=== PATIENT | male | born 1940 | race Caucasian/White ===

== ENCOUNTER 2022-03-02 16:09 | Outpatient (CLI) | payer MEDICARE, SELFPAY ==
[2022-03-02 16:48] LABS: D-Dimer Quantitative (DVT/PE) 3.95 FEU/ug/m (0.27-0.49)
== END 2022-03-02 23:59 | disposition home or self-care (01) ==
PROVIDERS: PCP Family Medicine; Visit Provider Family Medicine
DX: R07.9 Chest pain, unspecified (principal)
CPT/HCPCS: 85379

== ENCOUNTER 2024-08-27 17:00 | Emergency (ER) | payer MEDICARE, SELFPAY ==
[2024-08-27 17:00] VITALS: BP 179/73; PULSE 66; RESP 18; TEMP 36.4; O2SAT 97; BMI 27.4
--- NOTE | 2024-08-27 17:39 | EX.ED.DYSGE1 ---
HPI History of Present Illness Chief Complaint: Dizziness Informant: patient Onset/Context/Timing Onset: Weeks (1) Context: Gradual Onset Timing: Intermittent Quality: Lightheaded Location: Generalized Worsened by: Standing and moving Relieved by: Rest Narrative Narrative: Patient presents with lightheadedness and dizziness for the past week. Patient states that whenever he gets up and moves he becomes lightheaded. Patient states that sometimes he gets unsteady on his feet. Patient states his symptoms became worse yesterday. Patient noted some spots in his vision that have resolved. Patient admits to some urinary frequency but denies any dysuria or hematuria. Patient denies any fevers or chills. Patient denies any headaches. Patient states she has chronic tinnitus but denies any changes in his tinnitus. Patient denies any changes in his hearing. [facility] Medical History (Updated 08/27/24 @ 22:[address] Juan Luis Hughes DO) HTN (hypertension) Allergy/AdvReac Type Severity Reaction Status Date / Time No Known Allergies Allergy Verified 08/27/24 17:01 Surgical History (Updated 08/27/24 @ 18:[address] Juan Luis Hughes DO) Hx of atrial septal defect repair Hx of total knee replacement Social History Smoking Status: Never smoker ROS ROS ED Constitutional Constitutional ED: Denies chills or fever(s) Eyes Eyes: Reports change in vision; Denies blurry vision or diplopia ENT ENT ED: Denies rhinorrhea or sore throat Cardiovascular Cardiovascular: Denies chest pain or palpitations Respiratory/Chest Respiratory/Chest: Denies cough or dyspnea Gastrointestinal Gastrointestinal: Denies nausea or vomiting Genitourinary Genitourinary ED: Reports urinary frequency; Denies dysuria or hematuria Musculoskeletal Musculoskeletal: Denies back pain or neck pain Integumentary Denies abscess or rash Neurologic Neurologic: Denies headache(s) or weakness Allergic/Immunologic Allergic/Immunologic ED: Denies mouth swelling or urticaria EXAM Physical Exam Const Vital Signs: 08/27/24 17:00 08/27/24 18:35 08/27/24 19:00 Temperature 97.6 F L Temperature Source Oral Pulse Rate 66 59 L Pulse Rate [Lying] 58 L Pulse Rate [Sitting (for 1 minute prior to obtaining)] 64 Pulse Rate [Standing (for 1 minute prior to obtaining)] 63 Respiratory Rate 18 18 Blood Pressure 179/73 H 152/103 H Blood Pressure [Lying] 144/72 H Blood Pressure [Sitting (for 1 minute prior to obtaining)] 153/75 H Blood Pressure [Standing (for 1 minute prior to obtaining)] 146/84 H Blood Pressure Mean 108 119 Blood Pressure Mean [Lying] 96 Blood Pressure Mean [Sitting (for 1 minute prior to obtaining)] 101 Blood Pressure Mean [Standing (for 1 minute prior to obtaining)] 104 Pulse Ox 97 94 Oxygen Delivery Method Room Air Room Air 08/27/24 21:00 Temperature Temperature Source Pulse Rate 53 L Pulse Rate [Lying] Pulse Rate [Sitting (for 1 minute prior to obtaining)] Pulse Rate [Standing (for 1 minute prior to obtaining)] Respiratory Rate 18 Blood Pressure 158/82 H Blood Pressure [Lying] Blood Pressure [Sitting (for 1 minute prior to obtaining)] Blood Pressure [Standing (for 1 minute prior to obtaining)] Blood Pressure Mean 107 Blood Pressure Mean [Lying] Blood Pressure Mean [Sitting (for 1 minute prior to obtaining)] Blood Pressure Mean [Standing (for 1 minute prior to obtaining)] Pulse Ox 93 Oxygen Delivery Method Room Air Positive well nourished and well developed General Appearance ED: well developed and NAD HEENT Reports moist mucous membranes Neck supple and no JVD Resp normal respiratory effort and clear to auscultation bilaterally Cardio regular rate and regular rhythm GI non-tender and non-distended Palpation: soft Extremity normal to inspection General Extremety ED: Negative for edema or tenderness General Extremity: Negative for edema Neuro oriented x3, CN's II-XII intact bilaterally and no sensory deficits noted Sensorium / Orientation: alert Motor Exam: strength 5/5 throughout Psych mental status grossly normal MDM MDM MDM Narrative Medical decision making narrative: Differential diagnosis includes electrolyte abnormality, dehydration, vertigo, labyrinthitis, orthostatic hypotension, cardiac dysrhythmia, and cardiac ischemia. EKG will be obtained to assess for cardiac dysrhythmia and cardiac ischemia. CBC will be obtained to assess for leukocytosis and anemia. Basic metabolic profile will be obtained to assess for electrolyte abnormality and renal function. High-sensitivity troponin will be obtained to assess for cardiac ischemia. Orthostatic vital signs will be obtained to assess for orthostatic hypotension. Lab Data Attestation: I reviewed the patient's lab results. Lab results narrative: CBC was reviewed and was within normal limits. Basic metabolic profile was reviewed and was within normal limits. High-sensitivity troponin was reviewed and was normal at 11. Urinalysis was reviewed. Urobilinogen was 8. Leukocyte esterase was negative. There were 5-10 white blood cells and 1+ bacteria. Labs: Laboratory Results - last 24 hr 08/27/24 08/27/24 18:58 20:00 WBC 5.4 RBC 4.89 Hgb 15.6 Hct 46.1 MCV 94.3 H MCH 31.9 MCHC 33.8 RDW Std Deviation 45.9 H RDW Coeff of [place] 13.2 Plt Count 186 MPV 9.6 Immature Gran % (Auto) 0.600 Neut % (Auto) 55.9 Lymph % (Auto) 26.8 Angelina % (Auto) 12.8 H Eos % (Auto) 3.0 Baso % (Auto) 0.9 Absolute Neuts (auto) 3.0 Absolute Lymphs (auto) 1.45 Nucleated RBC % 0 Sodium 144 Potassium 3.9 Chloride 109 H Carbon Dioxide 29.0 Anion Gap 6 BUN 21 H Creatinine 1.20 Estim Creat Clear Calc 52.09 Est GFR (MDRD) Af Amer 75 Est GFR (MDRD) Non-Af 62 BUN/Creatinine Ratio 17.5 Glucose 109 H Calcium 8.7 Troponin I High Sens 11 Urine Color Yellow Urine Clarity Sl. Cloudy Urine pH 6.0 Ur Specific [place] 1.020 Urine Protein 15 H Urine Glucose (UA) Normal Urine Ketones Negative Urine Occult Blood Negative Urine Nitrite Negative Urine Bilirubin Negative Urine Urobilinogen 8 H Ur Leukocyte Esterase Negative Urine RBC 0 SEEN Urine WBC 5-10 SEEN Ur Squamous Epith Cells 0 SEEN Urine Bacteria 1+ Urine Mucus 0 SEEN EKG Initial EKG: Attestation: I personally reviewed and interpreted this EKG as follows: Interpretation: Sinus Rhythm (60) Comments: EKG was obtained. On my independent interpretation, it showed a normal sinus rhythm with a rate of 60. [place] interval, QRS interval, and QTc intervals were all normal. There is left axis deviation at -37. There is left ventricular hypertrophy. There are no acute ST or T wave changes. Prior EKG tracings: not available for review Prior: No Prior Treatment and Re-Evaluation :: Orthostatic vital signs were obtained and were negative. Patient was advised of his findings. Patient is feeling better on reevaluation. Patient wants to go home. Patient was instructed to follow-up with his primary care physician in 5 to 7 days. Patient understood and was agreeable with the plan. All questions were answered. Discharge Plan Triage Chief Complaint: Dizziness ED Provider: Juan Luis Hughes Dx/Rx/DC Orders Clinical Impression: Dizziness, Lightheadedness Instructions: ED Dizziness, Uncertain Cause Primary Care Provider: Diego May Referrals: Diego May MD [Primary Care Provider] - 5-7 Days Print Language: Gambian Disposition Disposition: Home, Self Care
[2024-08-27 18:35] VITALS: BP 144/72; BP 146/84; BP 153/75; PULSE 58; PULSE 63; PULSE 64
--- NOTE | 2024-08-27 18:35 | EKG12_ITS ---
Test Reason : DYSRHYTHMIA Blood Pressure : / mmHG Vent. Rate : 060 BPM Atrial Rate : 060 BPM P-R Int : 096 ms QRS Dur : 098 ms QT Int : 424 ms P-R-T Axes : -64 -37 029 degrees QTc Int : 424 ms Unusual P axis and short PA, probable junctional rhythm Left axis deviation Minimal voltage criteria for LVH, may be normal variant ( R in aVL ) Abnormal ECG Confirmed by CARIE GUAN, VIRI ([id number]), editor department JIMENA RUSSELL ([id number]) on 08/28/2024 8:50:52 AM Referred By: Confirmed By:VIRI DARNELL MD
[2024-08-27 19:00] VITALS: BP 152/103; PULSE 59; RESP 18; O2SAT 94
[2024-08-27 19:16] LABS: Absolute Lymphocyte Count 1.45 X10^3/uL (0.83-4.51); Basophil# 0.05 X10^3/uL; Basophil% 0.9 % (0-1); Eosinophil# 0.16 X10^3/uL; Hematocrit 46.1 % (40-54); Hemoglobin 15.6 g/dL (13.0-16.5); Lymphocyte # 1.45 X10^3/ul (0.83-4.51); Lymphocyte % 26.8 % (19-41); Mean Corp Hgb Conc 33.8 g/dL (32-36); Mean Corpuscular Hgb 31.9 pg (27.0-32.0); Mean Corpuscular Volume 94.3 fL (80-94); Mean Platelet Vol. 9.6 fl (6.2-12.0); Monocyte# 0.69 X10^3/uL; Monocyte% 12.8 % (0-10); NRBC Flagged by Analyzer 0 % (0-5); Neutrophil # 3.03 X10^3/uL (2.7-7.7); Neutrophil % 55.9 % (47-70); Platelet Count 186 K/mm3 (150-450); RBC Distribution Width CV 13.2 % (11.6-14.6); RBC Distribution Width SD 45.9 fl (35.1-43.9); Red Blood Count 4.89 M/mm3 (4.6-6.2); White Blood Count 5.4 K/mm3 (4.4-11.0)
[2024-08-27 19:38] LABS: Anion Gap 6 (5-15); BUN 21 mg/dL (7-18); BUN/Creat Ratio 17.5 RATIO (10-20); Calcium,Total 8.7 mg/dL (8.5-10.1); Chloride 109 mmol/L (98-107); EST Glomerular Filtration Rate 62 mL/min (>60); Est Glom Filt Rate - Afr Amer 75 mL/min (>60); Estimated Creatinine Clearance 52.09 ml/min; Glucose 109 mg/dL (74-106); Potassium 3.9 mmol/L (3.5-5.1); Sodium Level 144 mmol/L (136-145); Troponin-I HS 11 pg/mL (3.0-78.0)
[2024-08-27 20:07] LABS: Mucous, Urine 0 SEEN /hpf (<or=2+); Red Blood Cells-Urine 0 SEEN /hpf (0-5); Squamous Epithelial Cells - UA 0 SEEN /hpf (0-5)
[2024-08-27 20:13] LABS: Color, Urine Yellow (Yellow); Glucose, Dipstick Normal (Normal); Ketone-Dipstick Negative (Negative); Leukocyte Esterase-Dipstick Negative /ul (Negative); Nitrite-Dipstick Negative (Negative); Occult Blood-Urine Negative /ul (Negative); Protein-Dipstick 15 mg/dl (Negative); Urine Bilirubin Dipstick Negative (Negative); Urine Clarity Sl. Cloudy (Clear); Urine Urobilinogen 8 mg/dl (Normal)
[2024-08-27 20:22] LABS: Bacteria 1+ /hpf (None Seen); White Blood Cells 5-10 SEEN /hpf (0-5)
[2024-08-27 21:00] VITALS: BP 158/82; PULSE 53; RESP 18; O2SAT 93
[2024-08-27 22:19] VITALS: BP 172/82; PULSE 68; RESP 18; TEMP 36.4; O2SAT 99
== END 2024-08-27 22:20 | disposition home or self-care (01) ==
PROVIDERS: Emergency Provider Emergency Medicine; PCP Family Medicine; Visit Provider Emergency Medicine
DX: R42 Dizziness and giddiness (principal); I10 Essential (primary) hypertension; Z96.659 Presence of unspecified artificial knee joint
CPT/HCPCS: 80048; 81001; 84484; 85025; 93005; 99285

== ENCOUNTER 2025-06-02 13:55 | Inpatient (IN) | payer MEDICARE, SELFPAY ==
[2025-06-02 13:56] VITALS: BP 142/80; PULSE 65; RESP 16; TEMP 35.6; O2SAT 98; BMI 27.3
--- NOTE | 2025-06-02 13:58 | EKG12_ITS ---
Test Reason : WEAKNESS Blood Pressure : */* mmHG Vent. Rate : 54 BPM Atrial Rate : 54 BPM P-R Int : 112 ms QRS Dur : 96 ms QT Int : 426 ms P-R-T Axes : * -32 33 degrees QTcB Int : 403 ms Sinus bradycardia Left axis deviation Abnormal ECG Confirmed by CARIE GUAN, VIRI ([id number]), visual effects editor FIDELIA GOMEZ ([id number]) on 06/03/2025 11:01:37 AM Referred By: Confirmed By: VIRI DARNELL MD
[2025-06-02 14:17] LABS: Hematocrit 49.4 % (40-54); Hemoglobin 17.3 g/dL (13.0-16.5); Immature Granulocytes Count 0.020 X10^3/uL (0.0-0.0); Mean Corp Hgb Conc 35.0 g/dL (32-36); Mean Corpuscular Volume 92.7 fL (80-94); Mean Platelet Vol. 9.4 fl (6.2-12.0); NRBC Flagged by Analyzer 0 % (0-5); Platelet Count 185 K/mm3 (150-450); RBC Distribution Width CV 13.2 % (11.6-14.6); RBC Distribution Width SD 45.0 fl (35.1-43.9); Red Blood Count 5.33 M/mm3 (4.6-6.2); White Blood Count 5.9 K/mm3 (4.4-11.0)
[2025-06-02 14:29] VITALS: BMI 27.3
--- NOTE | 2025-06-02 14:45 | CT_ITS ---
EXAM: STROKE BRAIN/HEAD WITHOUT CONT CLINICAL HISTORY: 84 y/o M with NEURO DEFICIT, ACUTE, STROKE SUSPECTED. COMPARISON: None. TECHNIQUE: Routine CT imaging of the head without IV contrast. Additional multiplanar reformats were obtained. Dose reduction techniques were used including intermediate exposure control (AEC),iterative reconstruction technique, and/or mA and/or KV dose adjustments based on patient's size. FINDINGS: The ventricles, sulci and cisterns are normal for patient age. There is no evidence of acute intracranial hemorrhage or herniation. There is no midline shift, mass effect, or extra-axial collection. Moderate scattered supratentorial white matter hypodensities, compatible with patient age. The sawyer and white matter interfaces are otherwise maintained. Prior ocular lens replacements. The visualized paranasal sinuses and mastoids are unremarkable. No acute calvarial fracture or scalp hematoma. CT/STROKE Brain/Head without Cont IMPRESSION: No acute intracranial finding. Dr. Mckeon discussed findings with Dr. Moulton via telephone at 3:08 pm on . Reading Location: [id number]
--- OUTSIDE RECORDS SUMMARY | 2025-06-02 14:49 | XMS RPT_ITS | CCD ---
Author Organization [facility] CliniSyhi Care Team Providers Care Telesales Specialist Name Role Phone Diego Huffman MD Primary Care Provider Luis Cordero DO Unavailable Diego Huffman Primary Care Unavailable Juan Luis Hughes Attending Unavailable Diego Huffman MD Primary Care Provider Luis Cordero DO Unavailable Haagen TECHNICAL ENGINEER.CHILD CARE GROUP LEADER, Ana Unavailable Suppan TECHNICAL ENGINEER.CHILD CARE GROUP LEADER, Vicki A Unavailable Suppan TECHNICAL ENGINEER.CHILD CARE GROUP LEADER, Vicki A Unavailable [phone] Suppan TECHNICAL ENGINEER.CHILD CARE GROUP LEADER, Vicki A Unavailable [phone] BHANU RICHARDS Referring Unavailable DIEGO HUFFMAN Primary Care Unavailable ARMIDA, DIEGO Watson Referring Unavailable DIEGO HUFFMAN Primary Care Unavailable ROSA ELENA COHEN Attending Unavailable DIEGO HUFFMAN Referring Unavailable ANI LIU Attending Unavailable DIEGO HUFFMAN Primary Care Unavailable DIEGO HUFFMAN Primary Care Unavailable LYNETTE PATEL Attending Unavailable DIEGO HUFFMAN Primary Care Unavailable CORNELIUS DASILVA Attending Unavailable LYNETTE PATEL Referring Unavailable ARMIDADIEGO Primary Care Unavailable CORNELIUS DASILVA Attending Unavailable DIEGO HUFFMAN Primary Care Unavailable DIEGO HUFFMAN Referring Unavailable DIEGO HUFFMAN Primary Care Unavailable ROSA ELENA RAMON Attending Unavailable DIEGO HUFFMAN Primary Care Unavailable ROSA ELENA RAMON Referring Unavailable ARMIDA, DIEGO Watson Primary Care Unavailable DIEGO HUFFMAN Attending Unavailable DIEGO HUFFMAN Primary Care Unavailable DIEGO HUFFMAN Referring Unavailable ARMIDA, DIEGO Watson Referring Unavailable ARMIDA, DIEGO Watson Primary Care Unavailable DIEGO HUFFMAN Primary Care Unavailable ROSA ELENA COHEN Referring Unavailable ARMIDA, DIEGO Watson Primary Care Unavailable FIDENCIO RENEE Attending Unavailable ARMIDA, DIEGO Watson Primary Care Unavailable ARMIDA, DIEGO Watson Referring Unavailable ARMIDA, DIEGO Watson Primary Care Unavailable ARMIDA, DIEGO Watson Referring Unavailable ARMIDA, DIEGO Watson Primary Care Unavailable ARMIDA, DIEGO Watson Primary Care Unavailable ARMIDA, DIEGO Watson Attending Unavailable ARMIDA, DIEGO Watson Referring Unavailable ARMIDA, DIEGO Watson Primary Care Unavailable ANA RESENDEZ Attending Unavailable ARMIDA, DIEGO Watson Primary Care Unavailable ARMIDA, DIEGO Watson Primary Care Unavailable ARMIDA, DIEGO Watson Attending Unavailable SELF Referring Unavailable ARMIDA, DIEGO Watson Primary Care Unavailable STACIE HOOD Attending Unavailable ARMIDA, DIEGO Watson Primary Care Unavailable SELF Referring Unavailable ROSA ELENA COHEN Attending Unavailable ARMIDA, DIEGO Watson Primary Care Unavailable ARMIDA, DIEGO Watson Referring Unavailable ARMIDA, DIEGO Watson Primary Care Unavailable ARMIDA, DIEGO Watson Attending Unavailable ARMIDA, DIEGO Watson Primary Care Unavailable ANA RESENDEZ Referring Unavailable ARMIDA, DIEGO Watson Primary Care Unavailable CORNELIUS DASILVA Attending Unavailable ARMIDA, DIEGO Watson Primary Care Unavailable NARCISO JAQUEZ Attending UnavailSEBASTIAN Steen Referring Unavailable ARMIDA, DIEGO Watson Primary Care Unavailable ARMIDA, DIEGO Watson Primary Care Unavailable ROSA ELENA COHEN Referring Unavailable ARMIDA, DIEGO Watson Primary Care Unavailable Allergies Allergy Classification Reported Allergen(s) Allergy Type Date of Onset Reaction(s) Facility (20 sources) Lisinopril; Translations: [LISINOPRIL] Drug Allergy 04-09-2013 Cough [facility] Medications Current Medications Medication Drug Class(es) Dates Sig (Normalized) Sig (Original) amLODIPine 2.5 mg oral tablet (20 sources) Dihydropyridine Calcium Channel Dariel Start: 09-01-2021 End: 07-11-2025 take 1 tablet by mouth once daily amLODIPine (NORVASC) 2.5 mg tablet Indications: Essential hypertension, benign Take 1 tablet by mouth once daily. 90 tablet 3 07/11/2024 07/11/2025 Active Comment on above: Take 1 tablet by tonio once daily. ascorbic acid 500 mg oral tablet (20 sources) Vitamin C Start: 01-23-2014 take 2 tablets by mouth once daily ascorbic acid (VITAMIN C) 500 mg tablet Take 2 tablets by mouth once daily. 0 01/23/2014 Active Comment on above: Take 2 tablets by mo [facility] once daily. aspirin 81 mg delayed release oral tablet (20 sources) Platelet Aggregation Inhibitor, Nonsteroidal Anti-inflammatory Drug take 1 tablet by mouth once daily aspirin, enteric coated (ASPIRIN, ENTERIC COATED) 81 mg EC tablet Take 81 mg by mouth once daily. Active Comment on above: Take 81 mg by mouth once daily. benoxinate hydrochloride 4 mg/ml / fluorescein sodium 2.5 mg/ml ophthalmic solution (1 source) Diagnostic Dye Start: 09-09-2022 End: 09-09-2022 fluorescein-benoxin ate 0.25-0.4 % 1 Drop (FLURESS) benzonatate 100 mg oral capsule (2 sources) Non-narcotic Antitussive Start: 01-22-2025 End: 01-29-2025 take 1 capsule by mouth three times daily as needed for cough benzonatate (TESSALON PERLE) 100 mg capsule Indications: Influenza A Take 1 capsule by mouth three times a day as needed for cough for up to 7 days. 21 capsule 01/22/2025 01/29/2025 Active 12 hr guaiFENesin 600 mg extended release oral tablet (4 sources) Start: 04-16-2022 End: 04-26-2022 take 2 tablets by mouth twice daily guaiFENesin (MUCINEX) 600 mg 12 hr tablet Indications: Cough Take 2 tablets by mouth twice daily for 10 days. 40 tablet 0 04/16/2022 04/26/2022 Active Comment on above: Take 2 tablets by [facility] twice daily for 10 days. iv contrast (will be provided with radiology test) (1 source) Start: 12-10-2024 End: 12-11-2024 inject 1 dose intravenously once iv contrast (will be provided with radiology test) MRI Brain Inject, intravenously, once for 1 dose.No IV access, insert saline lock prior to beginning of sedation, infusion, injection of imaging exam.Discontinue saline lock post exam. If Pt. has a central line or IVAD, may access for administration according to line specific nursing protocol.Once exam is complete flush line and de-access according to line specific nursing protocol in the MR contrast administration guidelines link 1 Each 12/10/2024 12/11/2024 Active 24 hr mirabegron 50 mg extended release oral tablet (17 sources) beta3-Adrenergic Agonist Start: 03-20-2025 End: 07-18-2025 take 1 tablet by mouth once daily mirabegron (MYRBETRIQ) 50 mg Tb24 Take 1 tablet by mouth once daily. 30 tablet 3 03/20/2025 07/18/2025 Active Start: 08-02-2023 End: 03-12-2024 take 1 tablet by mouth once daily mirabegron (MYRBETRIQ) 50 mg Tb24 Indications: Urgency of urination Take 1 tablet by mouth once daily. 90 tablet 3 08/02/2023 03/12/2024 Discontinued Comment on above: Take 1 tablet by [facility] once daily. MULTI-VITAMIN ORAL (20 sources) MULTI-VITAMIN OR AL Take by mouth once daily. Active MULTI-VITAMIN OR AL Take by mouth. Active MULTI-VITAMIN OR AL Take by mouth. 0 Active Comment on above: Take by mouth. nutritional supplement/fiber (JUICE PLUS FIBRE ORAL) (20 sources) nutritional supp lement/fiber (JUICE PLUS FIBRE ORAL) Take by mouth. Takes eight daily Active nutritional supp lement/fiber (JUICE PLUS FIBRE ORAL) Take by mouth. Active nutritional supp lement/fiber (JUICE PLUS FIBRE ORAL) Take by mouth. 0 Active Comment on above: Take by mouth. omeprazole 20 mg delayed release oral capsule (11 sources) Proton Pump Inhibitor Start: 04-26-2025 End: 10-23-2025 take 1 capsule by mouth once daily omeprazole (PRILOSEC) 20 mg capsule Indications: Chronic cough , Dysphagia, unspecified type Take 1 capsule by mouth once daily. 30 capsule 5 04/26/2025 10/23/2025 Active Start: 04-06-2023 End: 03-12-2024 take 1 capsule by mouth once daily omeprazole (PRILOSEC) 40 mg capsule Take 1 capsule by mouth once daily. 90 capsule 1 04/06/2023 03/12/2024 Discontinued Comment on above: Take 1 capsule by mo [facility] once daily. oseltamivir 75 mg oral capsule (1 source) Neuraminidase Inhibitor Start: End: take 1 capsule by mouth twice daily oseltamivir (TAMIFLU) 75 mg capsule Indications: Influenza A Take 1 capsule by mouth two times a day for 5 days. 10 capsule 01/22/2025 01/27/2025 Active phenylephrine hydrochloride 25 mg/ml ophthalmic solution (1 source) alpha-1 Adrenergic Agonist Start: End: PHENYLephrine 2.5 % 1 Drop (AK-DILATE, FILOMENA-SYNEPHRINE) proparacaine hydrochloride 5 mg/ml ophthalmic solution (1 source) Local Anesthetic Start: End: proparacaine 0.5 % 1 Drop (ALCAINE) solifenacin succinate 5 mg oral tablet (13 sources) Cholinergic Muscarinic Antagonist Start: End: take 1 tablet by mouth once daily solifenacin (VESICARE) 5 mg tablet Take 1 tablet by mouth once daily. 30 tablet 3 04/03/2025 08/01/2025 Active tropicamide 10 mg/ml ophthalmic solution (1 source) Anticholinergic Start: End: tropicamide 1 % 1 Drop (MYDRIACYL) Completed/Discontinued Medications Medication Drug Class(es) Dates Sig (Normalized) Sig (Original) cephalexin 500 mg oral capsule (2 sources) Cephalosporin Antibacterial Start: 03-20-2025 End: 03-20-2025 cephALEXin 500 mg cap(s) (KEFLEX) Start: 03-20-2025 End: 03-20-2025 take 1 dose by mouth once 500 mg, ORAL, ONCE, 1 dose, On Tue03/20/25 at 1000, Antimicrobial indication: Prophylaxis fluticasone propionate 0.05 mg/actuat metered dose nasal spray (16 sources) Corticosteroid Start: 03-02-2023 End: 05-31-2023 take 2 spray(s) by mouth once daily fluticasone (FLONASE) 50 mcg/actuation nasal spray Indications: PND (post-nasal drip) , Vasomotor rhinitis Use 2 Sprays in each nostril once daily. Rinse mouth after use. 1 Each 2 03/02/2023 05/31/2023 Start: 11-03-2021 End: 07-07-2022 take 2 spray(s) by mouth once daily fluticasone (FLONASE) 50 mcg/actuation nasal spray Indications: URI, acute Use 2 Sprays in each nostril once daily. Rinse mouth after use. 1 Each 2 02/25/2022 07/07/2022 Discontinued (Other) Comment on above: Use 2 Sprays in each nostril once daily. Rinse mouth after use. ipratropium bromide 0.021 mg/actuat metered dose nasal spray (12 sources) Anticholinergic Start: 04-06-2023 End: 09-14-2024 Ipratropium [place] (ATROVENT) 21 mcg (0.03 %) nasal spray Use 2 Sprays in the nose twice daily. 30 mL 4 04/06/2023 09/14/2024 Discontinued Comment on above: Use 2 Sprays in the nose twice daily. lidocaine hydrochloride 0.02 mg/mg topical gel (2 sources) Antiarrhythmic, Amide Local Anesthetic Start: 03-20-2025 End: 03-20-2025 lidocaine urojet 2 % 11 mL topical gel (GLYDO) Start: 03-20-2025 End: 03-20-2025 11 mL, URETHRAL, ONCE (UP TO 30 DAYS AMB), 1 dose, On Tue03/20/25 at 1000, FOR EXTERNAL USE ONLY APPLY TO: PENIS loratadine 10 mg oral tablet (20 sources) Start: 07-07-2022 End: 09-14-2024 take 1 tablet by mouth once daily loratadine (CLARITIN) 10 mg tablet Take 1 tablet by mouth once daily. 30 tablet 11 07/07/2022 09/14/2024 Discontinued Comment on above: Take 1 tablet by tonio th once daily. naproxen 500 mg oral tablet (11 sources) Nonsteroidal Anti-inflammatory Drug Start: 09-09-2021 End: 07-07-2022 take 1 tablet by mouth every twelve hours as needed naproxen (NAPROSYN) 500 mg tablet Take 1 tablet by mouth twice daily as needed (pain/inflammation , take with food.). 20 tablet 09/09/2021 07/07/2022 Discontinued (Other) Comment on above: Take 1 tablet by tonio th twice daily as needed (pain/inflammation, take with food.). nystatin [id number] unt/ml topical cream (9 sources) Polyene Antifungal Start: 09-07-2023 End: 09-14-2024 nystatin (MYCOSTATIN) cream Indications: Dermatitis Apply 1 application to affected area two times a day. 45 g 09/07/2023 09/14/2024 Discontinued Comment on above: Apply 1 application to affected area two times a day. perflutren lipid microspheres 1.3 mL in NaCl (PF) 0.9% 10 mL injection (DEFINITY) (20 sources) Start: 03-02-2022 End: 06-01-2023 perflutren lipid microspheres 1.3 mL in NaCl (PF) 0.9% 10 mL injection (DEFINITY) Start: 12-04-2021 End: 03-05-2023 perflutren lipid microsphere s 1.3 mL in NaCl (PF) 0.9% 10 mL injection (DEFINITY) 125 ml sodium chloride 9 mg/ml prefilled syringe (20 sources) Start: 12-04-2021 End: 06-01-2023 sodium chloride 0.9 % (flush) 10 mL (BD POSIFLUSH) tamsulosin hydrochloride 0.4 mg oral capsule (6 sources) alpha-Adrenergic Dariel Start: 10-08-2024 End: 01-06-2025 take 1 capsule by mouth once daily at bedtime tamsulosin (FLOMAX) 0.4 mg Indications: Benign prostatic hyperplasia with nocturia , Urgency of urination Take 1 capsule by mouth daily at bedtime. 90 capsule 10/08/2024 12/27/2024 Discontinued (Discontinued by Patient) 24 hr trospium chloride 60 mg extended release oral capsule (10 sources) Cholinergic Muscarinic Antagonist Start: 02-18-2025 End: 03-15-2025 take 1 capsule by mouth once daily Trospium (SANCTURA SR) 60 mg cp24 Indications: Urgency of urination , OAB (overactive bladder) Take 1 capsule by mouth once daily. Take on an empty stomach 90 capsule 02/18/2025 03/15/2025 Discontinued Start: 01-07-2025 End: 03-08-2025 take 1 tablet by mouth once daily trospium (SANCTURA) 20 mg tablet Indications: Benign prostatic hyperplasia with nocturia , Urgency of urination Take 1 tablet by mouth once daily. Take for overactive bladder 60 tablet 01/07/2025 02/18/2025 Discontinued (Changing Therapy/Dosage Form) Problems Active Problems Problem Classification Problem Date Documented Da te Episodic/Chronic Allergic reactions (1 source) Inflammatory dermatosis; Translations: [Dermatitis, unspecified] 09-07-2023 Episodic Cardiac dysrhythmias (20 sources) Atrial fibrillation; Translations: [Unspecified atrial fibrillation] Onset: 3 Resolved: 7 11-23-2021 Chronic Cataract (20 sources) Pseudophakia; Translations: [Presence of intraocular lens] Onset: 5 Resolved: 5 11-17-2021 Chronic Esophageal disorders (20 sources) Gastroesophageal reflux disease; Translations: [Gastro-esophageal reflux disease without esophagitis] Onset: 5 01-20-2015 Chronic Essential hypertension (20 sources) Benign essential hypertension; Translations: [Essential (primary) hypertension] Onset: 2 10-31-2013 Chronic Heart valve disorders (20 sources) Mitral valve disorder; 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, unspecified] Onset: 3 Resolved: 2 Chronic Hyperplasia of prostate (20 sources) Benign prostatic hyperplasia; Translations: [Benign prostatic hyperplasia without lower urinary tract symptoms] Onset: 1 Resolved: 1 07-08-2023 Chronic Inflammation; infection of eye (except that caused by tuberculosis or sexually transmitteddisease) (20 sources) Bilateral punctate keratitis of eyes; Translations: [Punctate keratitis, bilateral] Onset: 2 02-15-2022 Chronic Influenza (1 source) Influenza due to Influenza A virus; Translations: [Influenza due to other identified influenza virus with other respiratory manifestations] 01-22-2025 Episodic Nonspecific chest pain (2 sources) Chest pain; Translations: [Chest pain, unspecified] Episodic Other and unspecified benign neoplasm (5 sources) Neuroma; Translations: [Benign neoplasm of peripheral nerves and autonomic nervous system, unspecified] 11-06-2024 Episodic Other and unspecified benign neoplasm (1 source) Benign neoplasm of peripheral nerves and autonomic nervous system, unspecified; Translations: [Neuroma] Onset: 5 Episodic Other circulatory disease (3 sources) Feeling of lump in throat; Translations: [Other specified symptoms and signs involving the circulatory and respiratory systems] Episodic Other circulatory disease (16 sources) H/O: atrial fibrillation; Translations: [Personal history of other diseases of the circulatory system] Onset: 5 03-15-2025 Episodic Other circulatory disease (1 source) Personal history of other diseases of the circulatory system; Translations: [History of atrial fibrillation] Onset: 5 Episodic Other connective tissue disease (3 sources) Pain in right foot; Translations: [Pain in right foot] 09-26-2024 Episodic Other connective tissue disease (1 source) Plantar fasciitis of left foot; Translations: [Plantar fascial fibromatosis] 04-12-2025 Episodic Other connective tissue disease (1 source) Pain in both feet; Translations: [Pain in right foot] 04-12-2025 Episodic Other connective tissue disease (1 source) Plantar fascial fibromatosis; Translations: [Plantar fasciitis of left foot] Onset: 5 Episodic Other connective tissue disease (2 sources) Pain in right foot; Translations: [Bilateral foot pain] Onset: 4 Episodic Other connective tissue disease (1 source) Pain in left foot; Translations: [Bilateral foot pain] Onset: 5 Episodic Other diseases of bladder and urethra (4 sources) Overactive bladder; Translations: [Overactive bladder] 02-18-2025 Chronic Other diseases of bladder and urethra (1 source) Overactive bladder; Translations: [OAB (overactive bladder)] Onset: 5 Chronic Other diseases of kidney and ureters (1 source) Other obstructive and reflux uropathy; Translations: [BPH with obstruction/lower urinary tract symptoms] Onset: 5 Episodic Other ear and sense organ disorders (3 sources) Sensorineural hearing loss, unilateral, left ear, with unrestricted hearing on the contralateral side; Translations: [Sensorineural hearing loss, unilateral] Onset: 5 12-10-2024 Chronic Other ear and sense organ disorders (20 sources) Asymmetrical sensorineural hearing loss; Translations: [Sensorineural hearing loss, bilateral] Onset: 5 12-10-2024 Chronic Other ear and sense organ disorders (4 sources) Bilateral tinnitus; Translations: [Tinnitus, bilateral] Episodic Other ear and sense organ disorders (2 sources) Tinnitus; Translations: [Tinnitus, unspecified ear] 09-14-2024 Episodic Other ear and sense organ disorders (1 source) Tinnitus of right ear; Translations: [Tinnitus, right ear] 12-27-2024 Episodic Other eye disorders (20 sources) Bilateral vitreous floaters; Translations: [Other vitreous opacities, bilateral] Onset: 5 08-29-2015 Chronic Other gastrointestinal disorders (2 sources) Dysphagia; Translations: [Dysphagia, unspecified] 04-26-2025 Episodic Other gastrointestinal disorders (1 source) Dysphagia, unspecified; Translations: [Dysphagia, unspecified type] Onset: Episodic Other hematologic conditions (1 source) Erythrocytosis; Translations: [Secondary polycythemia] 02-28-2025 Episodic Other hematologic conditions (1 source) Secondary polycythemia; Translations: [Polycythemia] Onset: Episodic Other lower respiratory disease (2 sources) Cough; Translations: [Cough] Episodic Other lower respiratory disease (1 source) Cough; Translations: [Acute cough] 01-22-2025 Episodic Other lower respiratory disease (7 sources) Chronic cough; Translations: [Chronic cough] Onset: 5 04-26-2025 Episodic Other non-traumatic joint disorders (4 sources) Pain in right knee; Translations: [Pain in joint, lower leg] Episodic Other non-traumatic joint disorders (1 source) Shoulder pain; Translations: [Pain in left shoulder] Episodic Other non-traumatic joint disorders (1 source) Pain in left shoulder; Translations: [Pain in joint, shoulder region] 07-07-2022 Episodic Other upper respiratory disease (20 sources) Non-allergic rhinitis; Translations: [Chronic rhinitis] Onset: 1 04-08-2011 Chronic Other upper respiratory disease (20 sources) Vasomotor rhinitis; 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] Onset: 8 05-29-2018 Chronic Other upper respiratory disease (1 source) Allergic disposition; Translations: [Other allergic rhinitis] Chronic Other upper respiratory disease (1 source) Vasomotor rhinitis; 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] Onset: 8 Chronic Other upper respiratory disease (1 source) Nasal discharge; Translations: [Other specified disorders of nose and nasal sinuses] 12-27-2024 Episodic Other upper respiratory infections (4 sources) Acute upper respiratory infection; Translations: [Acute upper respiratory infection, unspecified] Episodic Retinal detachments; defects; vascular occlusion; and retinopathy (20 sources) Nonexudative age-related macular degeneration; Translations: [Nonexudative age-related macular degeneration, unspecified eye, stage unspecified] Onset: 5 03-31-2015 Chronic Unclassified (20 sources) SUMMARY Onset: 3 Past or Other Problems Problem Classification Problem Date Documented Date Episodic/Chronic Blindness and vision defects (20 sources) Hypermetropia; Translations: [Hypermetropia, unspecified eye] Onset: 03-31-2015 Resolved: 11-10-2021 03-31-2015 Episodic Complications of surgical procedures or medical care (20 sources) Cardiac insufficiency following cardiac surgery; Translations: [Postprocedural cardiac insufficiency following cardiac surgery] Onset: 10-30-2013 Resolved: 11-01-2013 Chronic Complications of surgical procedures or medical care (20 sources) Atrial fibrillation; Translations: [Other postprocedural complications and disorders of the circulatory system, not elsewhere classified] Onset: 12-04-2021 Resolved: 03-15-2025 12-04-2021 Episodic Conditions associated with dizziness or vertigo (4 sources) Dizziness; Translations: [Dizziness and giddiness] Onset: 08-29-2024 08-27-2024 Episodic Diabetes mellitus without complication (20 sources) Metabolic stress hyperglycemia; Translations: [Hyperglycemia, unspecified] Onset: 11-01-2013 Resolved: 11-03-2013 Episodic Esophageal disorders (20 sources) Esophagitis; Translations: [Esophagitis, unspecified] Onset: 05-06-2011 Resolved: 04-28-2017 11-23-2021 Episodic Fluid and electrolyte disorders (20 sources) Hypervolemia; Translations: [Fluid overload, unspecified] Onset: 10-31-2013 Resolved: 10-31-2013 Episodic Gastritis and duodenitis (20 sources) Acute gastritis; Translations: [Acute gastritis without bleeding] Onset: 05-06-2011 Resolved: 12-26-2014 12-26-2014 Episodic Genitourinary symptoms and ill-defined conditions (20 sources) Urgent desire to urinate; Translations: [Urgency of urination] Onset: 12-21-2012 Resolved: 09-07-2023 12-21-2012 Episodic Immunizations and screening for infectious disease (20 sources) Patient encounter status; Translations: [Encounter for immunization] Onset: 04-16-2011 Resolved: 09-01-2021 Episodic Other connective tissue disease (20 sources) Supraspinatus tendinitis; Translations: [Shoulder lesion, unspecified, unspecified shoulder] Onset: 06-28-2011 Resolved: 04-28-2017 04-28-2017 Episodic Other ear and sense organ disorders (1 source) Tinnitus, unspecified ear; Translations: [Tinnitus, unspecified laterality] Onset: 12-10-2024 Episodic Other ear and sense organ disorders (1 source) Tinnitus, bilateral; Translations: [Tinnitus of both ears] Onset: 09-26-2024 Episodic Other eye disorders (20 sources) Meibomian gland dysfunction of bilateral eyes; Translations: [Meibomian gland dysfunction right eye, upper and lower eyelids] Onset: 02-15-2022 02-15-2022 Episodic Pleurisy; pneumothorax; pulmonary collapse (20 sources) Atelectasis; Translations: [Atelectasis] Onset: 10-31-2013 Resolved: 12-26-2014 11-23-2021 Episodic Residual codes; unclassified (20 sources) History of repair of mitral valve; Translations: [Other specified postprocedural states] Onset: 12-13-2013 12-13-2013 Episodic Residual codes; unclassified (20 sources) Amnesia; Translations: [Other amnesia] Onset: 02-05-2015 02-05-2015 Episodic Residual codes; unclassified (20 sources) Acute pain; Translations: [Pain, unspecified] Onset: 10-30-2013 Resolved: 12-26-2014 11-23-2021 Episodic Residual codes; unclassified (1 source) Other amnesia; Translations: [Memory loss] Onset: 02-05-2015 Episodic Residual codes; unclassified (1 source) Other specified postprocedural states; Translations: [S/P MVR (mitral valve repair)] Onset: 12-13-2013 Episodic Respiratory failure; insufficiency; arrest (adult) (20 sources) Ventilator finding; Translations: [Dependence on respirator [ventilator] status] Onset: 10-30-2013 Resolved: 10-31-2013 Chronic Results Test Name Value Interpretation Reference Range Facility [facility] 05-24-2025 [facility] Telephone (PODIWS) MAXIMO NIXON ([id number]) 1940 M Date Time Provider Department 05/24/25 ROSA ELENA COHEN During your visit today, we recorded the following information about you: Amber Villa LPN 05/27/2025 10:32 AM Signed Rosa Elena Cohen [facility] Podiatry Pool3 days ago Please call patient to confirm his ultrasound confirms neuroma. He can make follow-up to discuss results DALE Valero Amelia, LPN 05/27/2025 10:32 AM Signed Patient notified of results and provider's instructions. Patient verbalizes understanding. Amber Villa LPN Allergies As of Date: 05/24/2025 Noted Allergy Reaction LISINOPRIL 04/09/2013 3 - Cough Date Reviewed: 05/01/2025 Reviewed by: Ailyn Cooley RPFT - Fully Assessed Prescriptions as of 05/27/2025 - omeprazole (PRILOSEC) 20 mg capsule Take 1 capsule by mouth once daily. - solifenacin (VESICARE) 5 mg tablet Take 1 tablet by mouth once daily. - mirabegron (MYRBETRIQ) 50 mg Tb24 Take 1 tablet by mouth once daily. - amLODIPine (NORVASC) 2.5 mg tablet Take 1 tablet by mouth once daily. - nutritional supplement/fiber (JUICE PLUS FIBRE ORAL) Take by mouth. Takes eight daily - MULTI-VITAMIN ORAL Take by mouth once daily. - aspirin, enteric coated (ASPIRIN, ENTERIC COATED) 81 mg EC tablet Take 81 mg by mouth once daily. - ascorbic acid (VITAMIN C) 500 mg tablet Take 2 tablets by mouth once daily. Meds Comments as of 10/23/2013: mvi ld 10/19 Problem List As Of Date 05/24/2025 Noted Resolved Perennial non-allergic rhinitis [J31.0] 04/08/2011 Unspecified hyperplasia of prostate with urinar*04/08/2011 09/01/2021 Special screening for malignant neoplasms, colo*04/16/2011 09/01/2021 Acute gastritis without mention of hemorrhage [*05/06/2011 12/26/2014 Esophagitis, unspecified [K20.90] 05/06/2011 04/28/2017 Supraspinatus tendonitis [M75.90] 06/28/2011 04/28/2017 Essential hypertension, benign [I10] 05/25/2012 Difficulty voiding [R39.198] 12/21/2012 11/03/2013 Urgency of urination [R39.15] 12/21/2012 Nocturia [R35.1] 12/21/2012 09/07/2023 Mitral valve disease, 3-4+ MR by echo 08/10 [I05*08/13/2013 12/04/2021 Pre-op testing [Z01.818] 10/23/2013 11/03/2013 Mechanically assisted ventilation [Z99.11] 10/30/2013 10/31/2013 Acute pain [R52] 10/30/2013 12/26/2014 Cardiac insufficiency following cardiac surgery*10/30/2013 11/01/2013 Atelectasis/pleural effusion/FVO. [J98.11] 10/31/2013 12/26/2014 Fluid overload [E87.70] 10/31/2013 10/31/2013 SUMMARY [V999.95] 10/31/2013 BPH (benign prostatic hyperplasia) [N40.0] 11/01/2013 Post-op Junctional Rhyhtm with paroxysmal A-fib*11/01/2013 04/28/2017 Stress hyperglycemia [R73.9] 11/01/2013 11/03/2013 S/P MVR (mitral valve repair) [Z98.890] 12/13/2013 GERD (gastroesophageal reflux disease) [K21.9] 01/20/2015 Memory loss [R41.3] 02/05/2015 Other and combined forms of senile cataract [H2*03/31/2015 07/08/2015 Hypermetropia [H52.00] 03/31/2015 Regular astigmatism [H52.229] 03/31/2015 11/10/2021 Presbyopia [H52.4] 03/31/2015 11/10/2021 Nonexudative age-related macular degeneration, *03/31/2015 Astigmatism - Both Eyes [H52.209] 05/19/2015 Vitreous floaters of both eyes [H43.393] 05/19/2015 S/P cataract surgery - Right Eye [Z98.49] 06/05/2015 11/10/2021 Combined form of senile cataract of left eye [H*06/12/2015 07/08/2015 Regular astigmatism of left eye [H52.222] 06/12/2015 11/10/2021 Status post cataract surgery [Z98.49] 07/08/2015 11/10/2021 Pseudophakia [Z96.1] 07/08/2015 Postoperative atrial fibrillation (HCC) [I97.89* 03/15/2025 Vasomotor rhinitis [J30.0] 05/29/2018 Cataract, secondary obscuring vision, right [H2*11/17/2021 Bradycardia following surgery [I97.89] 12/04/2021 Meibomian gland dysfunction (MGD) of upper and *02/15/2022 Punctate keratitis, 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] 02/15/2022 After cataract not obscuring vision, left [H26.*09/09/2022 Sensorineural hearing loss, 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.3]12/10/2024 History of atrial fibrillation [Z86.79] 03/15/2025 Encounter Status:Closed by AMBER VILLA on 05/27/25 Normal [facility] US FOOT RTon 05-23-2025 US FOOT RT * * *Final Report* * * DATE OF EXAM: May 23 2025 1:50PM AFU 1142 - US FOOT RT / PROCEDURE REASON: Neuroma * * * * Physician Interpretation * * * * MSK_US RIGHT SECOND AND THIRD INTERMETATARSAL ULTRASOUND: CLINICAL INFORMATION:Neuroma TECHNIQUE: Mckoy-scale real-time ultrasound of the plantar and dorsal intermetatarsal space and adjacent joint spaces with dynamic imaging and power Doppler was performed. Images were archived for documentation. COMPARISON: X-ray: 04/12/2025 FINDINGS: SECOND INTERMETATARSAL SPACE: Moderate sized Westfall's neuroma measuring 9 x 5 x 3 mm. Mild intermetatarsal bursitis. SECOND MTP JOINT: Joint space appears maintained. No acute plantar plate tear.Plantar plates have an intact appearance. THIRD MTP JOINT: Joint space appears maintained. No acute plantar plate tear.Moderate degeneration of the lateral plantar plate. THIRD INTERMETATARSAL SPACE: Moderate sized Westfall's neuroma measuring 12 x 5 x 3 mm. Mild intermetatarsal bursitis. FOURTH MTP JOINT: Joint space appears maintained. No acute plantar plate tear.Plantar plates have an intact appearance. INTRINSIC MUSCLES: The adjacent intrinsic muscles show no gross abnormality. FLEXOR TENDONS: Flexor tendons at the MTP joints appear intact. 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 Sand Hauler: [facility] Transcribe Date/Time: May 23 2025 1:57P Dictated by : TIMMY QUINN MD This examination was interpreted and the report reviewed and electronically signed by: TIMMY QUINN MD on May 23 2025 2:07PM EST DIVISION OF RADIOLOGY * * *Final Report* * * DATE OF EXAM: May 23 2025 1:50PM AFU 1142 - US FOOT RT / PROCEDURE REASON: Neuroma * * * * Physician Interpretation * * * * MSK_US RIGHT SECOND AND THIRD INTERMETATARSAL ULTRASOUND: CLINICAL INFORMATION:Neuroma TECHNIQUE: Mckoy-scale real-time ultrasound of the plantar and dorsal intermetatarsal space and adjacent joint spaces with dynamic imaging and power Doppler was performed. Images were archived for documentation. COMPARISON: X-ray: 04/12/2025 FINDINGS: SECOND INTERMETATARSAL SPACE: Moderate sized Westfall's neuroma measuring 9 x 5 x 3 mm. Mild intermetatarsal bursitis. SECOND MTP JOINT: Joint space appears maintained. No acute plantar plate tear.Plantar plates have an intact appearance. THIRD MTP JOINT: Joint space appears maintained. No acute plantar plate tear.Moderate degeneration of the lateral plantar plate. THIRD INTERMETATARSAL SPACE: Moderate sized Westfall's neuroma measuring 12 x 5 x 3 mm. Mild intermetatarsal bursitis. FOURTH MTP JOINT: Joint space appears maintained. No acute plantar plate tear.Plantar plates have an intact appearance. INTRINSIC MUSCLES: The adjacent intrinsic muscles show no gross abnormality. FLEXOR TENDONS: Flexor tendons at the MTP joints appear intact. DIVISION OF RADIOLOGY Provider, [facility] - 05/23/2025 * * *Final Report* * * DATE OF EXAM: May 23 2025 1:50PM AFU 1142 - US FOOT RT / PROCEDURE REASON: Neuroma * * * * Physician Interpretation * * * * MSK_US RIGHT SECOND AND THIRD INTERMETATARSAL ULTRASOUND: CLINICAL INFORMATION:Neuroma TECHNIQUE: Mckoy-scale real-time ultrasound of the plantar and dorsal intermetatarsal space and adjacent joint spaces with dynamic imaging and power Doppler was performed. Images were archived for documentation. COMPARISON: X-ray: 04/12/2025 FINDINGS: SECOND INTERMETATARSAL SPACE: Moderate sized Westfall's neuroma measuring 9 x 5 x 3 mm. Mild intermetatarsal bursitis. SECOND MTP JOINT: Joint space appears maintained. No acute plantar plate tear.Plantar plates have an intact appearance. THIRD MTP JOINT: Joint space appears maintained. No acute plantar plate tear.Moderate degeneration of the lateral plantar plate. THIRD INTERMETATARSAL SPACE: Moderate sized Westfall's neuroma measuring 12 x 5 x 3 mm. Mild intermetatarsal bursitis. FOURTH MTP JOINT: Joint space appears maintained. No acute plantar plate tear.Plantar plates have an intact appearance. INTRINSIC MUSCLES: The adjacent intrinsic muscles show no gross abnormality. FLEXOR TENDONS: Flexor tendons at the MTP joints appear intact. IMPRESSION IMPRESSION: MODERATE-SIZED WESTFALL'S NEUROMAS IN THE SECOND AND THIRD INTERMETATARSAL SPACES WITH MILD SURROUNDING BURSITIS. Sand Hauler: MALLY Transcribe Date/Time: May 23 2025 1:57P Dictated by : TIMMY QUINN MD This examination was interpreted and the report reviewed and electronically signed by: TIMMY QUINN MD on May 23 2025 2:07PM 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 No contraindications or sensitivities were noted. Meds taken: no inhaled respiratory medications taken before testing. 2 puffs Albuterol (180 mcg) delivered by MDI via holding chamber. HR pre = 66/min, HR post = 66/min. The two largest FVCs were repeatable. The two largest FEV1s were repeatable. Lung Volumes are repeatable x3. IMPRESSION: Spirometry is normal. Negative bronchodilator response. Lung volumes are normal. Electronically Signed On 05-03-2025 16:01:34 EDT by Mitzy Minor MD ID: [id number] Name: MAXIMO NIXON Race: White Ht: 72.40 in Wt: 203.00 lbs Age: 84 Gender: Male : 1940 Dx: Chronic cough_ Smoking Hx: Non-smoker Doctor: DIEGO HUFFMAN Test Date: 05/01/2025 Site: Tech: Ailyn Cooley PRE-BRONCH POST-BRONCH Radha LLN Pred ULN %Pred ZScore Radha %Pred %Chg ZScore SPIROMETRY FVC 4.17 3.01 4.10 5.20 101 0.12 4.38 106 5 0.42 FEV1 2.55 2.13 2.96 3.74 86 -0.83 2.76 93 6 -0.41 FEV1/FVC 0.61 0.60 0.75 0.86 81 -1.56 0.63 84 3 -1.37 FEFMax 6.80 4.96 7.43 9.91 91 -0.42 6.17 83 -9 -0.84 FEF50 1.75 1.89 4.01 6.13 43 -1.75 2.21 55 26 -1.39 FIF50 3.44 2.92 -15 FEF50/FIF50 0.51 90-100 0.76 48 FIVC 3.44 3.55 3 FQA16-35 0.88 0.75 2.05 3.99 43 -1.42 1.42 69 60 -0.69 ExpiredTime 14.66 13.95 -4 TimeToFEFMax 0.08 0.13 70 JOON 0.08 0.08 -4 VolExtrap% 2 2 -8 LUNG VOLUMES FRC(Pleth) 3.05 3.10 4.44 6.10 68 -1.72 ERV 0.94 1.37 68 RV(Pleth) 2.11 1.66 3.02 4.71 69 -1.05 SVC 4.48 3.01 4.10 5.20 109 0.58 IC 3.27 2.73 119 TLC(Pleth) 6.32 5.94 7.64 9.37 82 -1.27 RV/TLC(Pleth) 33 27 41 55 82 -0.87 Comments: Medications and Allergies were reviewed for possible drug interactions per policy. No contraindications or sensitivities were noted. Meds taken: no inhaled respiratory medications taken before testing. 2 puffs Albuterol (180 mcg) delivered by MDI via holding chamber. HR pre = 66/min, HR post = 66/min. The two largest FVCs were repeatable. The two largest FEV1s were repeatable. Lung Volumes are repeatable x3. 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 No contraindications or sensitivities were noted. Meds taken: no inhaled respiratory medications taken before testing. 2 puffs Albuterol (180 mcg) delivered by MDI via holding chamber. HR pre = 66/min, HR post = 66/min. The two largest FVCs were repeatable. The two largest FEV1s were repeatable. Lung Volumes are repeatable x3. IMPRESSION: Spirometry is normal. Negative bronchodilator response. Lung volumes are normal. Electronically Signed On 05-03-2025 16:01:34 EDT by Mitzy Minor MD ID: [id number] Name: MAXIMO NIXON Race: White Ht: 72.40 in Wt: 203.00 lbs Age: 84 Gender: Male : 1940 Dx: Chronic cough_ Smoking Hx: Non-smoker Doctor: DIEGO HUFFMAN Test Date: 05/01/2025 Site: Tech: Ailyn Cooley PRE-BRONCH POST-BRONCH Radha LLN Pred ULN %Pred ZScore Radha %Pred %Chg ZScore SPIROMETRY FVC 4.17 3.01 4.10 5.20 101 0.12 4.38 106 5 0.42 FEV1 2.55 2.13 2.96 3.74 86 -0.83 2.76 93 6 -0.41 FEV1/FVC 0.61 0.60 0.75 0.86 81 -1.56 0.63 84 3 -1.37 FEFMax 6.80 4.96 7.43 9.91 91 -0.42 6.17 83 -9 -0.84 FEF50 1.75 1.89 4.01 6.13 43 -1.75 2.21 55 26 -1.39 FIF50 3.44 2.92 -15 FEF50/FIF50 0.51 90-100 0.76 48 FIVC 3.44 3.55 3 TLF49-89 0.88 0.75 2.05 3.99 43 -1.42 1.42 69 60 -0.69 ExpiredTime 14.66 13.95 -4 TimeToFEFMax 0.08 0.13 70 JOON 0.08 0.08 -4 VolExtrap% 2 2 -8 LUNG VOLUMES FRC(Pleth) 3.05 3.10 4.44 6.10 68 -1.72 ERV 0.94 1.37 68 RV(Pleth) 2.11 1.66 3.02 4.71 69 -1.05 SVC 4.48 3.01 4.10 5.20 109 0.58 IC 3.27 2.73 119 TLC(Pleth) 6.32 5.94 7.64 9.37 82 -1.27 RV/TLC(Pleth) 33 27 41 55 82 -0.87 Comments: Medications and Allergies were reviewed for possible drug interactions per policy. No contraindications or sensitivities were noted. Meds taken: no inhaled respiratory medications taken before testing. 2 puffs Albuterol (180 mcg) delivered by MDI via holding chamber. HR pre = 66/min, HR post = 66/min. The two largest FVCs were repeatable. The two largest FEV1s were repeatable. Lung Volumes are repeatable x3. FVC_PRE (L) : 4.17 L FVC_POST (L) : 4.38 L FVC_PRED (L) : 4.10 L FVC_LLN (L) : 3.01 L FVC_ULN (L) : 5.20 L FEV1_PRE (L) : 2.55 L FEV1_POST (L) : 2.76 L FEV1_PRED (L) : 2.96 L FEV1_LLN (L) : 2.13 L FEV1_ULN (L) : 3.74 L FEV1/FVC_PRE (%) : 61 % FEV1/FVC_POST (%) : 63 % FEV1/FVC_PRED (%) : 75 % FEV1/FVC_LLN (%) : 60 % HKW55_HEK (L/S) : 4.86 L/S QON42_GUFP (L/S) : 5.26 L/S KKN35_YSL (L/S) : 0.35 L/S KZN69_IZUX (L/S) : 0.38 L/S WJC12_HVPN (L/S) : 0.50 L/S LUK56_JLG (L/S) : 0.16 L/S GNM46_KAQ (L/S) : 1.46 L/S WLZ68-55%_PRE (L/S) : 0.88 L/S JNF02-66%_POST (L/S) : 1.42 L/S XLF29-68%_PRED (L/S) : 2.05 L/S FAQ38-19%_LLN (L/S) : 0.75 L/S PEF_PRE (L/S) : 6.80 L/S PEF_POST (L/S) : 6.17 L/S PEFMAX_LLN (L/S) : 4.96 L/S PEFMAX_ULN (L/S) : 9.91 L/S VC BOX (L) : 4.48 L SVC_PRED (L) : 4.10 L/S SVC_LLN (L) : 3.01 L/S SVC_ULN (L/S) : 5.20 L/S IC BOX (L) : 3.27 L IC_PRED (L) : 2.73 L/S ERV BOX (L) : 0.94 L ERV_PREDICTED (L) : 1.37 L/S FET_PRE (S) : 14.66 S FET_POST (S) : 13.95 S FRC BOX (L) : 3.05 L RV BOX (L) : 2.11 L RV_PLETH_PRED (L) : 3.02 L TLC BOX (L) : 6.32 L TLC_PLETH_PRED (L) : 7.64 L RV/TLC BOX (%) : 33 % RV_TLC_PLETH_PRED (%) : 41 % Normal [facility] CNOVon 04-26-2025 [facility] MAXIMO NIXON ([id number]) 1940 M Date Time Provider Department 04/26/25 3:20 PM DIEGO HUFFMAN During your visit today, we recorded the following information about you: Pulse Blood pressure Weight 92/minute 110/72 92.1 kg Diego Huffman MD 04/26/2025 3:42 PM Signed - Take omeprazole once daily until your follow-up appointment; the prescription has been sent to your pharmacy. - Avoid spicy foods for now to help lessen coughing and throat mucus. - Get a chest x-ray today as ordered. - Complete pulmonary function testing (spirometry) in the other building to assess lung function. - Undergo an esophagogram (barium swallow study) with the speech therapist to evaluate your swallowing. - Return in 4 to 6 weeks to review test results and your symptoms; if your coughing or throat mucus worsens before then, contact the clinic. Diego Huffman MD 04/26/2025 3:50 PM Signed Maximo is an 84-year-old male presenting for evaluation of chronic cough and thick mucus production. HPI Chronic Cough and Mucus Production: - Persistent cough and thick mucus production, x2 years. - Symptoms are constant, but exacerbated during and after eating. - Describes mucus as thick and difficult to swallow. - Recent episodes after eating kyrgyz and also Slovenian steak. - Unable to finish meals due to symptoms; had to leave a restaurant early. - Denies hoarseness, acid regurgitation, dysphagia, odynophagia, chest discomfort, sneezing, fevers, or chills. - Previously evaluated by ENT on 04/06/2023; prescribed omeprazole and ipratropium nasal spray with no relief. I am unsure if he really took the meds for any amount of time. - Denies current use of omeprazole. - Denies hematochezia or melena. - Denies history of smoking; minimal alcohol consumption in the past, abstinent for 30-40 years. - No caffeine intake; denies use of Advil or Aleve. MEDICATIONS: Current Outpatient Medications Medication Sig solifenacin (VESICARE) 5 mg tablet Take 1 tablet by mouth once daily. mirabegron (MYRBETRIQ) 50 mg Tb24 Take 1 tablet by mouth once daily. amLODIPine (NORVASC) 2.5 mg tablet Take 1 tablet by mouth once daily. nutritional supplement/fiber (JUICE PLUS FIBRE ORAL) Take by mouth. Takes eight daily MULTI-VITAMIN ORAL Take by mouth once daily. aspirin, enteric coated (ASPIRIN, ENTERIC COATED) 81 mg EC tablet Take 81 mg by mouth once daily. ascorbic acid (VITAMIN C) 500 mg tablet Take 2 tablets by mouth once daily. omeprazole (PRILOSEC) 20 mg capsule Take 1 capsule by mouth once daily. No current facility-administered medications for this visit. 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, 2012 PND (post-nasal drip) S/P MVR (mitral valve repair) Vasomotor rhinitis PAST SURGICAL HISTORY Procedure Laterality Date COLONOSCOPY FLX DX W/COLLJ SPEC WHEN PFRMD 05/06/11 EGD TRANSORAL BIOPSY SINGLE/MULTIPLE 05/06/11 ESOPHAGOGASTRODUODENOSCOPY TRANSORAL DIAGNOSTIC 11/28/2009 EGD ESOPHAGOGASTRODUODENOSCOPY TRANSORAL DIAGNOSTIC 02/13/2020 EGD PAST SURGICAL HISTORY OF 2007 bilateral TKA PAST SURGICAL HISTORY OF Right 2003 inguinal hernia PAST SURGICAL HISTORY OF 10/2013 heart valve repair [facility] RPR 1ST INGUN HRNA AGE 5 YRS/> REDUCIBLE 08/25/2020 Hernia repair, inguinal XCAPSL CTRC RMVL INSJ IO LENS PROSTH W/O ECP Right 06/04/2015 Cataract Extraction with PC IOL XCAPSL CTRC RMVL INSJ IO LENS PROSTH W/O ECP 07/02/2015 Cataract Extraction with PC IOL OS FAMILY HISTORY Problem Relation Age of Onset Alzheimer's Disease Father other (Other) Daughter brain tumor Allergies Daughter None Son No Ocular Disease No Family History Social History Tobacco Use Smoking status: Never Smokeless tobacco: Never Vaping Use Vaping status: Never Used Substance Use Topics Alcohol use: No Drug use: Never Reviewed current medications, allergies, past medical history, surgical history, family history and social history today. REVIEW OF SYSTEMS Constitutional: (-) fever, (-) chills Ears/Nose/Mouth/Throat: (+) thick throat mucus, (-) sore throat, (-) hoarseness, (-) sneezing Cardiovascular: (-) chest discomfort Respiratory: (+) cough Gastrointestinal: (+) dysphagia, (+) postprandial regurgitation, (-) black stools, (-) bloody stools, (-) nocturnal acid regurgitation HEALTH MAINTENANCE: Reviewed health maintenance iss (more content not included)... Normal [facility] XR CHEST 2V FRONTAL/LATon XR CHEST 2V FRONTAL/LAT * * *Final Report* * * DATE OF EXAM: Apr 26 2025 4:01PM WOX [id number] - XR CHEST 2V FRONTAL/LAT / PROCEDURE REASON: Chronic cough * * * * Physician Interpretation * * * * EXAMINATION: CHEST RADIOGRAPH (2 VIEW FRONTAL and LATERAL) CLINICAL HISTORY: Chronic cough MQ: [id number] EXAM DATE/TIME: 04/26/2025 4:01 PM COMPARISON: 01/22/2025. RESULT: Lines, tubes, and devices: None. Lungs and pleura: No consolidation. No lung mass. No pleural effusion. No pneumothorax. Cardiomediastinal silhouette: The heart size is at the upper limits of normal. There is a mitral prosthesis. Bones and soft tissues: There are healed fractures involving the left lower ribs. IMPRESSION: Stable exam with changes of prior cardiac surgery and no acute radiographic abnormality. Sand Hauler: MALLY Transcribe Date/Time: Apr 27 2025 10:28A Dictated by : ROXANNA LAZAR MD This examination was interpreted and the report reviewed and electronically signed by: ROXANNA LAZAR MD on Apr 27 2025 10:29AM EST [id number] Normal [facility] CNOVon 04-23-2025 CNOV Office Visit ([facility] ) NIXONMAXIMO ([id number]) 1940 M Date Time Provider Department 04/23/25 11:20 AM STACIE HOOD [facility] During your visit today, we recorded the following information about you: Weight Height 92.5 kg 1.854 m Mikey Dacosta MA 04/23/2025 12:59 PM Signed Post void bladder scan completed. 0 ml residual remaining. Results reported to KALEB Landeros Becky J, TECHNICAL ENGINEER.KALEB 04/23/2025 12:59 PM Signed Maximo Nixon is a 84 year old male who presents today for a follow up for Patient presents with: Established Patient: 8 week follow up/urgency,BPH,OAB CHIEF COMPLAINT AND HISTORY OF PRESENT ILLNESS CC: follow up 84 year old male with a history of htn, oab, bph established with Dr. Jaquez presents for OAB medication follow up, he was started on mirabegron 50 mg daily 6 weeks ago for reports of increased frequency and nocturia, he only took the mirabegron for one week and the vesicare 5 mg for one week with no improvement so he stopped, he is getting up 2-3 times per night to void, +tinnitus, DTF 6-7 times. +urgency with some UUI, no use of pads. He has to squeeze his penis to control his urine. Denies dysuria, gross hematuria Drinking flavored water PVR 0 cc Cystoscopy/TRUS 03/20/2025 minimally enlarged lateral lobes, normal median lobes 24 gram prostate s/p greenlight laser 02/2013 Past use of oxybutynin and flomax [employer] Prostate Symptom Score (IPSS) 1. Incomplete emptyin 2. Frequency: 3 3. Intermittency: 0 4. Urgency: 2 5. Weak stream: 5 6. Strainin 7. Nocturia: 2 Total: 17/35 Quality of Life: 6 terrible VITALS: Height 185.4 cm (6' 1), weight 92.5 kg (204 lb). ALLERGIES: Lisinopril MEDICATIONS: Current Outpatient Medications Medication Sig Dispense Refill solifenacin (VESICARE) 5 mg tablet Take 1 tablet by mouth once daily. 30 tablet 3 mirabegron (MYRBETRIQ) 50 mg Tb24 Take 1 tablet by mouth once daily. 30 tablet 3 amLODIPine (NORVASC) 2.5 mg tablet Take 1 tablet by mouth once daily. 90 tablet 3 nutritional supplement/fiber (JUICE PLUS FIBRE ORAL) Take by mouth. Takes eight daily MULTI-VITAMIN ORAL Take by mouth once daily. aspirin, enteric coated (ASPIRIN, ENTERIC COATED) 81 mg EC tablet Take 81 mg by mouth once daily. ascorbic acid (VITAMIN C) 500 mg tablet Take 2 tablets by mouth once daily. 0 No current facility-administered medications for this visit. SOCIAL HISTORY: Social History Tobacco Use Smoking status: Never Smokeless tobacco: Never Vaping Use Vaping status: Never Used Substance Use Topics Alcohol use: No Drug use: Never PAST MEDICAL HISTORY: PAST MEDICAL HISTORY Diagnosis Date Acute gastritis without mention of hemorrhage Arrhythmia Benign prostatic hyperplasia with nocturia BPH associated with nocturia Esophagitis, unspecified Essential hypertension, benign 05/25/2012 Gastroesophageal reflux disease, unspecified whether esophagitis present GERD (gastroesophageal reflux disease) OAB (overactive bladder) Paroxysmal A-fib (HCC) transitory 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, 2012 PND (post-nasal drip) S/P MVR (mitral valve repair) Vasomotor rhinitis PAST SURGICAL HISTORY: PAST SURGICAL HISTORY Procedure Laterality Date COLONOSCOPY FLX DX W/COLLJ SPEC WHEN PFRMD 05/06/11 EGD TRANSORAL BIOPSY SINGLE/MULTIPLE 05/06/11 ESOPHAGOGASTRODUODENOSCOPY TRANSORAL DIAGNOSTIC 11/28/2009 EGD ESOPHAGOGASTRODUODENOSCOPY TRANSORAL DIAGNOSTIC 02/13/2020 EGD PAST SURGICAL HISTORY OF 2007 bilateral TKA PAST SURGICAL HISTORY OF Right 2003 inguinal hernia PAST SURGICAL HISTORY OF 10/2013 heart valve repair [facility] RPR 1ST INGUN HRNA AGE 5 YRS/> REDUCIBLE 08/25/2020 Hernia repair, inguinal XCAPSL CTRC RMVL INSJ IO LENS PROSTH W/O ECP Right 06/04/2015 Cataract Extraction with PC IOL XCAPSL CTRC RMVL INSJ IO LENS PROSTH W/O ECP 07/02/2015 Cataract Extraction with PC IOL OS FAMILY HISTORY: FAMILY HISTORY Problem Relation Age of Onset Alzheimer's Disease Father other (Other) Daughter brain tumor Allergies Daughter None Son No Ocular Disease No Family History All histories reviewed on this date 04/23/2025: Yes REVIEW OF SYSTEMS: CONSTITUTIONAL: Patient reports no recent fever or weight loss CARDIOVASCULAR: Negative for chest pain. RESPIRATORY: Negative for cough, hemoptysis, wheezing, COPD, dyspnea or shortness of breath All other systems reviewed and are negative other than HPI. PHYSICAL EXAM: constitutional: appears healthy in no acute distress respiratory: normal respiratory motion RADIOLOGY REPORTS REVIEWED: Yes LAB RESULTS REVIEWED: Yes IMAGING STUDIES INDEPENDENTLY REVIEWED: No OLD RECORDS REVIEWED: Yes: Extensive: No ASSESSMENT/PLAN: 1. OAB (overactive bladder) - ICD9: 596.51, ICD10: N32.81 (primary diagnosis) -patient was previously prescribed mckenzie (more content not included)... Normal [facility] CNOVon 04-12-2025 CNOV Office Visit (PODIWS ) MAXIMO NIXON ([id number]) 1940 M Date Time Provider Department 04/12/25 10:45 AM ROSA ELENA COHEN During your visit today, we recorded the following information about you: Kenisha Argueta MA 04/13/2025 10:41 AM Signed AMB ROOMING INTAKE FLOWSHEET DATA Pain Pain Level: 10 Pain Location: (bilateral feet) Description: Sharp Duration Amount of Time: (ongoing) Frequency: Continuous Intervention/Comfort measure: Other: See comment (none) Rosa Elena Cohen 04/12/2025 11:24 AM Signed An ultrasound has been scheduled for your right foot. This will help confirm if you have a neuroma between your toes. Continue to use your shoe inserts and wear supportive shoes (such as Hoka, Sevilla, Asics, or New Balance) to help with your foot pain. Perform daily stretching exercises for your foot. Stand about an arm?s length from a wall, turn your feet slightly inward (pigeon-toed), and lean forward as if doing a push-up to stretch your arch. If you experience more sharp or significant pain while walking or standing, please contact us as you may need a steroid injection based on the ultrasound findings. Rosa Elena Cohen 04/13/2025 10:41 AM Signed Jeremie Maximo is an 84-year-old male presenting for evaluation of right foot pain and left heel pain. Right Foot Pain: - Persistent pain in the ball of the right foot, initially noted in October 2024. - Pain localized between the toes and on the plantar surface. - Aggravated by walking and prolonged standing; no pain at rest. - Reports a super sharp pain, really bad after walking for a while. Left Heel Pain: - Pain in the left heel, exacerbated by prolonged standing. - Denies pain upon waking or initial standing. 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 30 tablet 3 mirabegron (MYRBETRIQ) 50 mg Tb24 Take 1 tablet by mouth once daily. 30 tablet 3 amLODIPine (NORVASC) 2.5 mg tablet Take 1 tablet by mouth once daily. 90 tablet 3 nutritional supplement/fiber (JUICE PLUS FIBRE ORAL) Take by mouth. Takes eight daily MULTI-VITAMIN ORAL Take by mouth once daily. aspirin, enteric coated (ASPIRIN, ENTERIC COATED) 81 mg EC tablet Take 81 mg by mouth once daily. ascorbic acid (VITAMIN C) 500 mg tablet Take 2 tablets by mouth once daily. 0 No current facility-administered medications for this visit. Family History Problem Relation Age of Onset Alzheimer's Disease Father other (Other) Daughter brain tumor Allergies Daughter None Son No Ocular Disease No Family History Objective There were no vitals taken for this visit. - Cardiovascular: Dorsalis pedis and posterior tibial pulses palpable bilaterally; capillary refill time <5 seconds; skin temperature warm bilaterally; hair growth noted bilaterally. - Skin: No open sores or lesions noted on bilateral feet. - Musculoskeletal: - Left Foot: - Mild tenderness to palpation of the plantar medial tubercle of the calcaneus. - Negative Tinel's sign. - Right Foot: - No tenderness to palpation of the plantar medial calcaneal tubercle. - Positive Berenice's click to the second and third interspace. - Negative Tinel's sign. 1. 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 - Positive Berenice click noted to the right second and third interspace. - Ordered ultrasound to confirm presence and location of neuroma. - Discussed treatment options including corticosteroid injection, radiofrequency ablation, and surgical excision. - Will determine further treatment based on ultrasound findings and severity of pain. 2. Plantar fasciitis of left foot (M72.2) - Mild tenderness to palpation of the plantar medial tubercle of the left calcaneus. - Recommended wearing supportive footwear (Hoka, Sevilla, Asics, New Balance) and continuing use of orthotic inserts. - Educated on stretching exercises: advised to stand arm's length from a wall, place feet in a pigeon-toed position, and perform a forward bend similar to a push-up. - Patient understands (more content not included)... Normal [facility] 04-12-2025 CNPN Telephone (RULTTB) MAXIMO NIXON ([id number]) 1940 M Date Time Provider Department 04/12/25 JAISON GUALLPA LTTB During your visit today, we recorded the following information about you: Jaison Guallpa 04/12/2025 11:39 AM Signed Visit Type: ANY MSK Visit Length: 45, 50 OR 60 MINUTES Order Name/Protocol: US FOOT RT; [facility] - EVAL 2ND+3RD IMS FOR NEUROMA Preferred Provider: N/A Comment: Please ask if the patient has ever had any prior surgery to their RT 2ND+3RD TOES. If so, upgrade the visit type to an MSK1 and notate the surgical hx in the Appointment Note. Location: Depending on the surgical hx, this patient can have this exam performed at any of our four locations. Slot held: N/A Jaison Guallpa 04/12/2025 11:50 AM Signed PT scheduled for MSK US on 05/23/25 at 2:25 PM at [place]. Allergies As of Date: 04/12/2025 Noted Allergy Reaction LISINOPRIL 04/09/2013 3 - Cough Date Reviewed: 04/12/2025 Reviewed by: Kenisha Argueta MA - Fully Assessed Reason for Visit: Appointment [186] Prescriptions as of 04/12/2025 - solifenacin (VESICARE) 5 mg tablet Take 1 tablet by mouth once daily. - mirabegron (MYRBETRIQ) 50 mg Tb24 Take 1 tablet by mouth once daily. - amLODIPine (NORVASC) 2.5 mg tablet Take 1 tablet by mouth once daily. - nutritional supplement/fiber (JUICE PLUS FIBRE ORAL) Take by mouth. Takes eight daily - MULTI-VITAMIN ORAL Take by mouth once daily. - aspirin, enteric coated (ASPIRIN, ENTERIC COATED) 81 mg EC tablet Take 81 mg by mouth once daily. - ascorbic acid (VITAMIN C) 500 mg tablet Take 2 tablets by mouth once daily. Meds Comments as of 10/23/2013: mvi ld 10/19 Problem List As Of Date 04/12/2025 Noted Resolved Perennial non-allergic rhinitis [J31.0] 04/08/2011 Unspecified hyperplasia of prostate with urinar*04/08/2011 09/01/2021 Special screening for malignant neoplasms, colo*04/16/2011 09/01/2021 Acute gastritis without mention of hemorrhage [*05/06/2011 12/26/2014 Esophagitis, unspecified [K20.90] 05/06/2011 04/28/2017 Supraspinatus tendonitis [M75.90] 06/28/2011 04/28/2017 Essential hypertension, benign [I10] 05/25/2012 Difficulty voiding [R39.198] 12/21/2012 11/03/2013 Urgency of urination [R39.15] 12/21/2012 Nocturia [R35.1] 12/21/2012 09/07/2023 Mitral valve disease, 3-4+ MR by echo 08/10 [I05*08/13/2013 12/04/2021 Pre-op testing [Z01.818] 10/23/2013 11/03/2013 Mechanically assisted ventilation [Z99.11] 10/30/2013 10/31/2013 Acute pain [R52] 10/30/2013 12/26/2014 Cardiac insufficiency following cardiac surgery*10/30/2013 11/01/2013 Atelectasis/pleural effusion/FVO. [J98.11] 10/31/2013 12/26/2014 Fluid overload [E87.70] 10/31/2013 10/31/2013 SUMMARY [V999.95] 10/31/2013 BPH (benign prostatic hyperplasia) [N40.0] 11/01/2013 Post-op Junctional Rhyhtm with paroxysmal A-fib*11/01/2013 04/28/2017 Stress hyperglycemia [R73.9] 11/01/2013 11/03/2013 S/P MVR (mitral valve repair) [Z98.890] 12/13/2013 GERD (gastroesophageal reflux disease) [K21.9] 01/20/2015 Memory loss [R41.3] 02/05/2015 Other and combined forms of senile cataract [H2*03/31/2015 07/08/2015 Hypermetropia [H52.00] 03/31/2015 Regular astigmatism [H52.229] 03/31/2015 11/10/2021 Presbyopia [H52.4] 03/31/2015 11/10/2021 Nonexudative age-related macular degeneration, *03/31/2015 Astigmatism - Both Eyes [H52.209] 05/19/2015 Vitreous floaters of both eyes [H43.393] 05/19/2015 S/P cataract surgery - Right Eye [Z98.49] 06/05/2015 11/10/2021 Combined form of senile cataract of left eye [H*06/12/2015 07/08/2015 Regular astigmatism of left eye [H52.222] 06/12/2015 11/10/2021 Status post cataract surgery [Z98.49] 07/08/2015 11/10/2021 Pseudophakia [Z96.1] 07/08/2015 Postoperative atrial fibrillation (HCC) [I97.89* 03/15/2025 Vasomotor rhinitis [J30.0] 05/29/2018 Cataract, secondary obscuring vision, right [H2*11/17/2021 Bradycardia following surgery [I97.89] 12/04/2021 Meibomian gland dysfunction (MGD) of upper and *02/15/2022 Punctate keratitis, 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] 02/15/2022 After cataract not obscuring vision, left [H26.*09/09/2022 Sensorineural hearing loss, 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.3]12/10/2024 History of atrial fibrillation [Z86.79] 03/15/2025 Encounter Status:Closed by JAISON GUALLPA on 04/12/25 Normal [facility] XR CERVICAL 4V AP/LAT/OBLon 04-12-2025 XR CERVICAL 4V AP/LAT/OBL * * *Final Report* * * DATE OF EXAM: Apr 12 2025 10:33AM [id number] - XR CERVICAL 4V AP/LAT/OBL / PROCEDURE REASON: M99.01, M47.812 * * * * Physician Interpretation * * * * EXAMINATION / TECHNIQUE: XR CERVICAL 4V AP/LAT/OBL, XR CERVICAL SPECIFY 1V HISTORY: Chronic neck pain M99.01, M47.812 COMPARISON: None. RESULT: Counting reference: Craniocervical junction. Anatomic Variants: None. Vertebral body heights are maintained. The dens is intact. Minimal retrolisthesis C4 on C5 and C5 on C6. Moderate to severe multilevel degenerative disc disease. Severe multilevel bilateral bony neural foraminal narrowing. Prevertebral soft tissues are normal. COMBINED IMPRESSION: Degenerative changes as described. Sand Hauler[facility] Transcribe Date/Time: Apr 16 2025 8:23P Dictated by : TIMMY QUINN MD This examination was interpreted and the report reviewed and electronically signed by: TIMMY QUINN MD on Apr 16 2025 8:24PM EST [id number] Normal [facility] XR CERVICAL SPECIFY 1Von XR CERVICAL SPECIFY 1V * * *Final Report* * * DATE OF EXAM: Apr 12 2025 10:33AM [id number] - XR CERVICAL SPECIFY 1V / PROCEDURE REASON: M99.01, M47.812 * * * * Physician Interpretation * * * * EXAMINATION / TECHNIQUE: XR CERVICAL 4V AP/LAT/OBL, XR CERVICAL SPECIFY 1V HISTORY: Chronic neck pain M99.01, M47.812 COMPARISON: None. RESULT: Counting reference: Craniocervical junction. Anatomic Variants: None. Vertebral body heights are maintained. The dens is intact. Minimal retrolisthesis C4 on C5 and C5 on C6. Moderate to severe multilevel degenerative disc disease. Severe multilevel bilateral bony neural foraminal narrowing. Prevertebral soft tissues are normal. COMBINED IMPRESSION: Degenerative changes as described. Sand Hauler: [facility] Transcribe Date/Time: Apr 16 2025 8:23P Dictated by : TIMMY QUINN MD This examination was interpreted and the report reviewed and electronically signed by: TIMMY QUINN MD on Apr 16 2025 8:24PM EST [id number] Normal [facility] XR FOOT 3V AP/LAT/OBL BILon 04-12-2025 XR FOOT 3V AP/LAT/OBL MICHAEL * * *Final Report* * * DATE OF EXAM: Apr 12 2025 10:04AM [id number] - XR FOOT 3V AP/LAT/OBL MICHAEL / PROCEDURE REASON: multiple diagnoses * * * * Physician Interpretation * * * * EXAMINATION / TECHNIQUE: XR FOOT 3V AP/LAT/OBL MICHAEL HISTORY: Sharp intermittent pain in between right 2nd and 3rd toes. Pain in left heel that shoots pain up left leg. Bilateral foot pain Bilateral foot pain COMPARISON: 09/26/2024. 09/29/2021. RESULT: No acute fracture or dislocation in either foot. Joint spaces are maintained bilaterally. No osseous erosion. IMPRESSION: No acute bony abnormality. Sand Hauler: MALLY Transcribe Date/Time: Apr 16 2025 8:22P Dictated by : TIMMY QUINN MD This examination was interpreted and the report reviewed and electronically signed by: TIMMY QUINN MD on Apr 16 2025 8:23PM EST [id number] Normal [facility] 04-09-2025 [facility] Telephone (MARA) MAXIMO NIXON ([id number]) 1940 M Date Time Provider Department 04/09/25 ROSA ELENA COHEN During your visit today, we recorded the following information about you: Katty Hines LPN 04/09/2025 10:11 AM Signed Patient is calling wanting to know if there were any appointments open today ? patient is c/o right foot pain 10/10 nerve pain. Patient has been seen for this in past. CHAZ Vela Amanda, RN 04/09/2025 2:04 PM Signed Patient scheduled for this tuesday Allergies As of Date: 04/09/2025 Noted Allergy Reaction LISINOPRIL 04/09/2013 3 - Cough Date Reviewed: 03/20/2025 Reviewed by: Cresencio Haas MA - Fully Assessed Prescriptions as of 04/11/2025 - solifenacin (VESICARE) 5 mg tablet Take 1 tablet by mouth once daily. - mirabegron (MYRBETRIQ) 50 mg Tb24 Take 1 tablet by mouth once daily. - amLODIPine (NORVASC) 2.5 mg tablet Take 1 tablet by mouth once daily. - nutritional supplement/fiber (JUICE PLUS FIBRE ORAL) Take by mouth. Takes eight daily - MULTI-VITAMIN ORAL Take by mouth once daily. - aspirin, enteric coated (ASPIRIN, ENTERIC COATED) 81 mg EC tablet Take 81 mg by mouth once daily. - ascorbic acid (VITAMIN C) 500 mg tablet Take 2 tablets by mouth once daily. Meds Comments as of 10/23/2013: mvi ld 10/19 Problem List As Of Date 04/09/2025 Noted Resolved Perennial non-allergic rhinitis [J31.0] 04/08/2011 Unspecified hyperplasia of prostate with urinar*04/08/2011 09/01/2021 Special screening for malignant neoplasms, colo*04/16/2011 09/01/2021 Acute gastritis without mention of hemorrhage [*05/06/2011 12/26/2014 Esophagitis, unspecified [K20.90] 05/06/2011 04/28/2017 Supraspinatus tendonitis [M75.90] 06/28/2011 04/28/2017 Essential hypertension, benign [I10] 05/25/2012 Difficulty voiding [R39.198] 12/21/2012 11/03/2013 Urgency of urination [R39.15] 12/21/2012 Nocturia [R35.1] 12/21/2012 09/07/2023 Mitral valve disease, 3-4+ MR by echo 08/10 [I05*08/13/2013 12/04/2021 Pre-op testing [Z01.818] 10/23/2013 11/03/2013 Mechanically assisted ventilation [Z99.11] 10/30/2013 10/31/2013 Acute pain [R52] 10/30/2013 12/26/2014 Cardiac insufficiency following cardiac surgery*10/30/2013 11/01/2013 Atelectasis/pleural effusion/FVO. [J98.11] 10/31/2013 12/26/2014 Fluid overload [E87.70] 10/31/2013 10/31/2013 SUMMARY [V999.95] 10/31/2013 BPH (benign prostatic hyperplasia) [N40.0] 11/01/2013 Post-op Junctional Rhyhtm with paroxysmal A-fib*11/01/2013 04/28/2017 Stress hyperglycemia [R73.9] 11/01/2013 11/03/2013 S/P MVR (mitral valve repair) [Z98.890] 12/13/2013 GERD (gastroesophageal reflux disease) [K21.9] 01/20/2015 Memory loss [R41.3] 02/05/2015 Other and combined forms of senile cataract [H2*03/31/2015 07/08/2015 Hypermetropia [H52.00] 03/31/2015 Regular astigmatism [H52.229] 03/31/2015 11/10/2021 Presbyopia [H52.4] 03/31/2015 11/10/2021 Nonexudative age-related macular degeneration, *03/31/2015 Astigmatism - Both Eyes [H52.209] 05/19/2015 Vitreous floaters of both eyes [H43.393] 05/19/2015 S/P cataract surgery - Right Eye [Z98.49] 06/05/2015 11/10/2021 Combined form of senile cataract of left eye [H*06/12/2015 07/08/2015 Regular astigmatism of left eye [H52.222] 06/12/2015 11/10/2021 Status post cataract surgery [Z98.49] 07/08/2015 11/10/2021 Pseudophakia [Z96.1] 07/08/2015 Postoperative atrial fibrillation (HCC) [I97.89* 03/15/2025 Vasomotor rhinitis [J30.0] 05/29/2018 Cataract, secondary obscuring vision, right [H2*11/17/2021 Bradycardia following surgery [I97.89] 12/04/2021 Meibomian gland dysfunction (MGD) of upper and *02/15/2022 Punctate keratitis, 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] 02/15/2022 After cataract not obscuring vision, left [H26.*09/09/2022 Sensorineural hearing loss, 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.3]12/10/2024 History of atrial fibrillation [Z86.79] 03/15/2025 Encounter Status:Closed by GAIL KEVIN on 04/09/25 [facility] ([id number]) 1940 M Date Time Provider Department 03/27/25 NARCISO JAQUEZ During your visit today, we recorded the following information about you: Joselo Lin RN 03/27/2025 1:01 PM Signed Patient calls with complaints of frequent urination. Patient was seen on 03/20 and was prescribed Myrbetriq. Patient was informed that the medication can take up to a month to get effect. Patient states that since taking it he feels as if he is going to the restroom more. He is requesting a different medication. Correct pharmacy is selected. Please review and advise. Joselo Lin RN 04/03/2025 4:50 PM Signed Called patient and made aware that new script had been written. Allergies As of Date: 03/27/2025 Noted Allergy Reaction LISINOPRIL 04/09/2013 3 - Cough Date Reviewed: 03/20/2025 Reviewed by: Cresencio Haas MA - Fully Assessed Reason for Visit: Medication Problem [65] Primary Visit Diagnosis:OAB (overactive bladder) [N32.81] Order(s):solifenacin (VESICARE) 5 mg tabletTake 1 tablet by mouth once daily.Disp: 30 tabletRfl: 3 Prescriptions as of 04/03/2025 - solifenacin (VESICARE) 5 mg tablet Take 1 tablet by mouth once daily. - mirabegron (MYRBETRIQ) 50 mg Tb24 Take 1 tablet by mouth once daily. - amLODIPine (NORVASC) 2.5 mg tablet Take 1 tablet by mouth once daily. - nutritional supplement/fiber (JUICE PLUS FIBRE ORAL) Take by mouth. Takes eight daily - MULTI-VITAMIN ORAL Take by mouth once daily. - aspirin, enteric coated (ASPIRIN, ENTERIC COATED) 81 mg EC tablet Take 81 mg by mouth once daily. - ascorbic acid (VITAMIN C) 500 mg tablet Take 2 tablets by mouth once daily. Meds Comments as of 10/23/2013: mvi ld 10/19 Problem List As Of Date 03/27/2025 Noted Resolved Perennial non-allergic rhinitis [J31.0] 04/08/2011 Unspecified hyperplasia of prostate with urinar*04/08/2011 09/01/2021 Special screening for malignant neoplasms, colo*04/16/2011 09/01/2021 Acute gastritis without mention of hemorrhage [*05/06/2011 12/26/2014 Esophagitis, unspecified [K20.90] 05/06/2011 04/28/2017 Supraspinatus tendonitis [M75.90] 06/28/2011 04/28/2017 Essential hypertension, benign [I10] 05/25/2012 Difficulty voiding [R39.198] 12/21/2012 11/03/2013 Urgency of urination [R39.15] 12/21/2012 Nocturia [R35.1] 12/21/2012 09/07/2023 Mitral valve disease, 3-4+ MR by echo 08/10 [I05*08/13/2013 12/04/2021 Pre-op testing [Z01.818] 10/23/2013 11/03/2013 Mechanically assisted ventilation [Z99.11] 10/30/2013 10/31/2013 Acute pain [R52] 10/30/2013 12/26/2014 Cardiac insufficiency following cardiac surgery*10/30/2013 11/01/2013 Atelectasis/pleural effusion/FVO. [J98.11] 10/31/2013 12/26/2014 Fluid overload [E87.70] 10/31/2013 10/31/2013 SUMMARY [V999.95] 10/31/2013 BPH (benign prostatic hyperplasia) [N40.0] 11/01/2013 Post-op Junctional Rhyhtm with paroxysmal A-fib*11/01/2013 04/28/2017 Stress hyperglycemia [R73.9] 11/01/2013 11/03/2013 S/P MVR (mitral valve repair) [Z98.890] 12/13/2013 GERD (gastroesophageal reflux disease) [K21.9] 01/20/2015 Memory loss [R41.3] 02/05/2015 Other and combined forms of senile cataract [H2*03/31/2015 07/08/2015 Hypermetropia [H52.00] 03/31/2015 Regular astigmatism [H52.229] 03/31/2015 11/10/2021 Presbyopia [H52.4] 03/31/2015 11/10/2021 Nonexudative age-related macular degeneration, *03/31/2015 Astigmatism - Both Eyes [H52.209] 05/19/2015 Vitreous floaters of both eyes [H43.393] 05/19/2015 S/P cataract surgery - Right Eye [Z98.49] 06/05/2015 11/10/2021 Combined form of senile cataract of left eye [H*06/12/2015 07/08/2015 Regular astigmatism of left eye [H52.222] 06/12/2015 11/10/2021 Status post cataract surgery [Z98.49] 07/08/2015 11/10/2021 Pseudophakia [Z96.1] 07/08/2015 Postoperative atrial fibrillation (HCC) [I97.89* 03/15/2025 Vasomotor rhinitis [J30.0] 05/29/2018 Cataract, secondary obscuring vision, right [H2*11/17/2021 Bradycardia following surgery [I97.89] 12/04/2021 Meibomian gland dysfunction (MGD) of upper and *02/15/2022 Punctate keratitis, 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] 02/15/2022 After cataract not obscuring vision, left [H26.*09/09/2022 Sensorineural hearing loss, 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.3]12/10/2024 History of atrial fibrillation [Z86.79] 03/15/2025 Prescriptions ordered this encounter Disp Refills Start End SOLIFENACIN 5 MG TABLET 30 t* 3 04/03/2025 08/01/2025 Route: ORAL Sig: Take 1 tablet by mouth once daily. Encounter Status:Closed by NARCISO JAQUEZ on 04/03/25 [facility] CNOVon 03-20-2025 CNOV Office Visit (UROLMD ) MAXIMO NIXON ([id number]) 1940 M Date Time Provider Department 03/20/25 9:30 AM NARCISO JAQUEZ UROLMD During your visit today, we recorded the following information about you: Pulse Respiration Blood pressure Weight 61/minute 16/minute 170/84 92.5 kg Height 1.854 m Narciso Jaquez MD 03/20/2025 10:17 AM Signed COUNT INCLUDES [facility] UROLOGY PROCEDURE NOTE [facility] ([facility]) FLEXIBLE CYSTOURETHROSCOPY AND TRUS UROLOGY OUTPATIENT PROCEDURE NOTE UNIVERSAL PROTOCOL AND SAFETY CHECKLISTUNIVERSAL PROTOCOL / SAFETY CHECKLIST Procedure to be Performed: Cysto/TRUS Referral by: Humberto Dasilva APRN.CHILD CARE GROUP LEADER.DNP Indication: Bladder overactivity Sign In: A Moment of CARE was completed. Personnel directly involved with the procedure wore the appropriate PPE (Personal Protective Equipment). Patient/Surrogate Stated/Verified: PATIENT VERIFIED(optional for EMERGENT procedures): Patient name, Date of , Relevant allergies and The intended procedure Time Out Communication: Intended patient and procedure match the source documents. Consent documented and matches the intended procedure. Sign Out: SIGN OUT (optional for EMERGENT procedures): All specimen containers correctly labeled. PHYSICIAN NOTE: FLEXIBLE CYSTOURETHROSCOPY AND TRANSRECTAL ULTRASOUND PROCEDURE DATE: March 20, 2025 FINDINGS Urethra: Normal Sphincter: Normal / Coapted Prostate: Minimally enlarged lateral Lobes /normal median Lobe Bladder Neck: Patent Urothelium: normal appearing, no evidence of tumor, no erythema, no foreign body Trabeculation: Yes Inflammation: No Diverticulum: Yes, in fact diverticulum is directly at the bladder neck Ureteral Orifices: normal appearing, orthotopic position, clear efflux bilaterally Trigone: normal appearing Procedure: Flexible cystoscopy and transrectal ultrasound Anesthesia: Lidocaine Gel Procedure Details: In the cystoscopy suite, the patient was placed in the supine position, prepped, and draped in the usual manner. Lidocaine gel was placed per urethra for local anasthesia. No lazarus-procedural antibiotics were given. Cystourethroscopy was performed using a flexible scope. Sterile technique was maintained throughout. The urethra, prostate, and bladder were inspected in their entirety. Specific findings from the procedure are detailed in the corresponding section of this note. The cystoscope was carefully removed. The patient was placed in the lateral decubitus position. Digital rectal exam was normal. The ultrasound probe was placed into the rectum and the prostate visualized. The prostate was visualized in sagittal and transverse planes and no hypoechoic lesion identified. The total prostate volume was 24 gm Complications: None Estimated Blood Loss: None Preoperative diagnosis: Bladder overactivity Postoperative diagnosis: Same Disposition / Plan: - I discussed the potential etiologies of his urinary symptoms which sound most consistent with an overactive bladder. I do not believe he has a severe degree of obstruction at this time. - Will focus on bladder relaxation. Patient states that he tried trospium for about 1 week and did not find it to be effective. I reviewed his medications in detail. Patient does not recall taking Myrbetriq in 2022, when prescribed by Paul Chatterjee PA-C. Patient was recommended to be seen in follow-up after 3 months to review the medication effects but he decided not to return since he was not taking any medication. - At this time we will begin trial of Myrbetriq 50 mg daily. Prescription provided. If this medication is ineffective, would pursue UDS for further workup. Reevaluate in 6 weeks Narciso Jaquez MD, MS Associate Staff [facility] Narciso Jaquez MD 03/20/2025 10:02 AM Signed AFTER YOUR CYSTOSCOPY You have undergone a cystoscopy: Narciso Jaquez MD has inserted a telescope into your bladder through your urethra. WHAT TO EXPECT -Possible burning during urination; and/or -Blood tinged urine. - More urgency for 1-2 days These normally subside within 24-48 hours and with increased fluid intake. WHAT TO DO: -Resume normal activities and medication. -Increase your fluid intake for the next day. MEDICATION: -If an antibiotic is prescribed, take it as directed until ALL the medication is gone. WHEN TO CALL THE DOCTOR: -If you have a fever above 100* Fahrenheit; -If you are unable to urinate; -If large blood clots form in your urine; and/or -If your urine becomes bloody and does not clear with increased fluids. PHONE NUMBERS: [phone] [place] [phone] [place] [phone] [place] [phone] [place] Allergies As of Date: 03/20/2025 Noted Allergy Reacti (more content not included)... Normal [facility] ES CYSTOSCOPY (POC) FOR UROL OGY USE ONLYon 03-20-2025 [facility] Radiology Study observation (narrative) [facility] UA DIP, URINE (POC)on 2024 BILIRUBIN UA (POCT) Negative Negative [facility] CLARITY UA (POCT) Clear [facility] COLOR UA (POCT) Yellow [facility] GLUCOSE UA (POCT) Negative Negative mg/dL [facility] Hemoglobin Ql (U) Negative Negative [facility] Interpretation and review of laboratory results Abnormal [facility] KETONE UA (POCT) Negative Negative mg/dL [facility] LEUKOCYTES UA (POCT) Negative [facility] NITRITE [facility] (POCT) Negative [facility] PH UA (POCT) 5.5 4.5 - 8.0 [facility] Protein Ql (U) Trace Abnormal Negative mg/dL [facility] SPECIFIC GRAVITY UA (POCT) >=1.030 1.005 - 1.030 [facility] UROBILINOGEN UA (POCT) 0.2 Normal E.U./dL [facility] Location:[facility], [address] [place], [address] [facility] POINT OF CARE [facility] US Prostate transrectalon [facility] Radiology Study observation (narrative) [facility] CNOVon 03-15-2025 CNOV Office Visit (FAMPWS ) KRYSTYNAMAXIMO ([id number]) 1940 M Date Time Provider Department 03/15/25 3:00 PM [facility] During your visit today, we recorded the following information about you: Pulse Blood pressure Weight Height 67/minute 131/74 93.4 kg 1.854 m Diego Huffman MD 03/15/2025 5:14 PM Signed Patient presents with: 6 Month Exam HPI: Patient presents today for office visit for follow up. HTN: Does not monitor BP at home. Does not miss any doses of his Amlodipine. Denies chest pain and shortness of breath. Denies headaches. Intermittent lightheadedness. Not often. Denies palpitations and syncope. Denies edema. Continues with right foot pain. Follows with Dr. Cohen. Dr Jaquez. is seeing him for his urinary issues. Getting cystoscopy soon. Latest Ref Rng 02/27/2025 03/03/2025 03/08/2025 WBC 3.70 - 11.00 k/uL 4.53 4.08 RBC 4.20 - 6.00 m/uL 5.62 5.21 Hemoglobin 13.0 - 17.0 g/dL 17.6 (H) 16.7 Hematocrit 39.0 - 51.0 % 51.3 (H) 48.0 MCV 80.0 - 100.0 fL 91.3 92.1 MCH 26.0 - 34.0 pg 31.3 32.1 MCHC 30.5 - 36.0 g/dL 34.3 34.8 RDW-CV 11.5 - 15.0 % 13.2 13.2 Platelet Count 150 - 400 k/uL 189 197 MPV 9.0 - 12.7 fL 9.1 9.1 Neut% % 53.2 52.7 Abs Neut (ANC) 1.45 - 7.50 k/uL 2.41 2.15 Lymph% % 30.7 30.9 Abs Lymph 1.00 - 4.00 k/uL 1.39 1.26 [place]% % 12.4 12.3 Abs [place] <0.87 k/uL 0.56 0.50 Eosin% % 2.4 2.7 Abs Eosin <0.46 k/uL 0.11 0.11 Baso% % 0.9 1.2 Abs Baso <0.11 k/uL 0.04 0.05 Immature Gran % % 0.4 0.2 IMMATURE GRANS (ABS) <0.10 k/uL <0.03 <0.03 NRBC /100 WBC 0.0 0.0 Absolute nRBC <0.01 k/uL <0.01 <0.01 DTYPE Auto Auto Protein, Total 6.3 - 8.0 g/dL 6.8 Albumin 3.9 - 4.9 g/dL 4.2 Calcium 8.5 - 10.2 mg/dL 9.3 Bilirubin, Total 0.2 - 1.3 mg/dL 0.8 Alkaline Phosphatase 38 - 113 U/L 65 AST 14 - 40 U/L 20 ALT 10 - 54 U/L 12 Glucose 74 - 99 mg/dL 96 BUN 9 - 24 mg/dL 17 Creatinine 0.73 - 1.22 mg/dL 1.09 Sodium 136 - 144 mmol/L 139 Potassium 3.7 - 5.1 mmol/L 4.3 Chloride 98 - 107 mmol/L 105 CO2 22 - 30 mmol/L 28 Anion Gap 8 - 15 mmol/L 6 (L) eGFR >=60 mL/min/1.73m? 68 Cholesterol, Total <200 mg/dL 107 Triglyceride <150 mg/dL 50 HDL Cholesterol >39 mg/dL 56 Non HDL Cholesterol <130 mg/dL 51 Fasting Time hrs 12 VLDL Cholesterol <30 mg/dL 10 TC:HDL Ratio <5.10 1.91 LDL Cholesterol <100 mg/dL 41 LDL:HDL Ratio <2.54 0.73 Strep A (POCT) Negative Negative Procedural Control Valid Legend: (H) High (L) Low MEDICATIONS: Current Outpatient Medications Medication Sig amLODIPine (NORVASC) 2.5 mg tablet Take 1 tablet by mouth once daily. nutritional supplement/fiber (JUICE PLUS FIBRE ORAL) Take by mouth. Takes eight daily MULTI-VITAMIN ORAL Take by mouth once daily. aspirin, enteric coated (ASPIRIN, ENTERIC COATED) 81 mg EC tablet Take 81 mg by mouth once daily. ascorbic acid (VITAMIN C) 500 mg tablet Take 2 tablets by mouth once daily. No current facility-administered medications for this visit. 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, 2012 PND (post-nasal drip) S/P MVR (mitral valve repair) Vasomotor rhinitis PAST SURGICAL HISTORY Procedure Laterality Date COLONOSCOPY FLX DX W/COLLJ SPEC WHEN PFRMD 05/06/11 EGD TRANSORAL BIOPSY SINGLE/MULTIPLE 05/06/11 ESOPHAGOGASTRODUODENOSCOPY TRANSORAL DIAGNOSTIC 11/28/2009 EGD ESOPHAGOGASTRODUODENOSCOPY TRANSORAL DIAGNOSTIC 02/13/2020 EGD PAST SURGICAL HISTORY OF 2007 bilateral TKA PAST SURGICAL HISTORY OF Right 2002 inguinal hernia PAST SURGICAL HISTORY OF 10/2013 heart valve repair [facility] MAIN RPR 1ST INGUN HRNA AGE 5 YRS/> REDUCIBLE 08/25/2020 Hernia repair, inguinal XCAPSL CTRC RMVL INSJ IO LENS PROSTH W/O ECP Right 06/04/2015 Cataract Extraction with PC IOL XCAPSL CTRC RMVL INSJ IO LENS PROSTH W/O ECP 07/02/2015 Cataract Extraction with PC IOL OS FAMILY HISTORY Problem Relation Age of Onset Alzheimer's Disease Father other (Other) Daughter brain tumor Allergies Daughter None Son No Ocular Disease No Family History Social History Tobacco Use Smoking status: Never Smokeless tobacco: Never Vaping Use Vaping status: Never Used Substance Use Topics Alcohol use: No Drug use: Never Reviewed current medications, allergies, past medical history, surgical history, family history and social history today. REVIEW OF SYSTEMS No falls or gi issues. All other reviewed and negative (more content not included)... Normal [facility] CBC W Auto Differential pane l (Bld)on 03-08-2025 Basophils (Bld) [#/Vol] 0.05 10*3/uL Normal <0.11 [facility] Comment on above: Order Comment: Speci men Type: BLOOD SPECIMENOrdering Facility: [facility] Address: [address] [place] [address] Performed By: #### 5 7021-8 ####[facility]ITALWMALIA [id number] [place] [address] [place] Basophils/100 WBC (Bld) 1.2 % Normal [facility] Comment on above: Order Comment: Speci men Type: BLOOD SPECIMENOrdering Facility: [facility] Address: [address] [place] [address] Performed By: #### 5 7021-8 ####[facility] [id number] [place] [address] [place] Differential cell count method Nom (Bld) Auto Normal [facility] Comment on above: Order Comment: Speci men Type: BLOOD SPECIMENOrdering Facility: [facility] Address: [address] [place] [address] Performed By: #### 5 7021-8 ####[facility] [id number] [place] [address] [place] Eosinophils (Bld) [#/Vol] 0.11 10*3/uL Normal <0.46 [facility] Comment on above: Order Comment: Speci men Type: BLOOD SPECIMENOrdering Facility: [facility] Address: [address] [place] [address] Performed By: #### 5 7021-8 ####[facility] [id number] [place] [address] [place] Eosinophils/100 WBC (Bld) 2.7 % Normal [facility] Comment on above: Order Comment: Speci men Type: BLOOD SPECIMENOrdering Facility: [facility] Address: [address] [place] [address] Performed By: #### 5 7021-8 ####[facility] ROBINSONMIZENCLIA [id number] [place] [address] [place] Erythrocyte distribution width (RBC) [Ratio] 13.2 % Normal 11.5-15.0 [facility] Comment on above: Order Comment: Speci men Type: BLOOD SPECIMENOrdering Facility: [facility] Address: [address] [place] [address] Performed By: #### 5 7021-8 ####[facility] [id number] [place] [address] [place] Hematocrit (Bld) [Volume fraction] 48.0 % Normal 39.0-51.0 [facility] Comment on above: Order Comment: Speci men Type: BLOOD SPECIMENOrdering Facility: [facility] Address: [address] [place] [address] Performed By: #### 5 7021-8 ####[facility] [id number] [place] [address] [place] Hemoglobin (Bld) [Mass/Vol] 16.7 g/dL Normal 13.0-17.0 [facility] Comment on above: Order Comment: Speci men Type: BLOOD SPECIMENOrdering Facility: [facility] Address: [address] [place] [address] Performed By: #### 5 7021-8 ####[facility] AVONLIA [id number] [place] [address] [place] Immature granulocytes (Bld) [#/Vol] 10*3/uL Normal <0.10 [facility] Comment on above: Order Comment: Speci men Type: BLOOD SPECIMENOrdering Facility: [facility] Address: [address] [place] [address] Performed By: #### 5 7021-8 ####[facility] [id number] [place] [address] [place] Immature granulocytes/100 WBC (Bld) 0.2 % Normal [facility] Comment on above: Order Comment: Speci men Type: BLOOD SPECIMENOrdering Facility: [facility] Address: [address] [place] [address] Performed By: #### 5 7021-8 ####[facility] [id number] [place] [address] [place] Lymphocytes (Bld) [#/Vol] 1.26 10*3/uL Normal 1.00-4.00 [facility] Comment on above: Order Comment: Speci men Type: BLOOD SPECIMENOrdering Facility: [facility] Address: [address] [place] [address] Performed By: #### 5 7021-8 ####[facility] [id number] [place] [address] [place] Lymphocytes/100 WBC (Bld) 30.9 % Normal [facility] Comment on above: Order Comment: Speci men Type: BLOOD SPECIMENOrdering Facility: [facility] Address: [address] [place] [address] Performed By: #### 5 7021-8 ####[facility]DRENNCLI [id number] [place] [address] [place] MCH (RBC) [Entitic mass] 32.1 pg Normal 26.0-34.0 [facility] Comment on above: Order Comment: Speci men Type: BLOOD SPECIMENOrdering Facility: [facility] Address: [address] [place] [address] Performed By: #### 5 7021-8 ####[facility] [id number] [place] [address] [place] MCHC (RBC) [Mass/Vol] 34.8 g/dL Normal 30.5-36.0 [facility] Comment on above: Order Comment: Speci men Type: BLOOD SPECIMENOrdering Facility: [facility] Address: [address] [place] [address] Performed By: #### 5 7021-8 ####[facility] ROBINSONMIZENCLIFeli [id number] [place] [address] [place] MCV (RBC) [Entitic vol] 92.1 fL Normal 80.0-100.0 [facility] Comment on above: Order Comment: Speci men Type: BLOOD SPECIMENOrdering Facility: [facility] Address: [address] [place] [address] Performed By: #### 5 7021-8 ####[facility] [id number] [place] [address] [place] Monocytes (Bld) [#/Vol] 0.50 10*3/uL Normal <0.87 [facility] Comment on above: Order Comment: Speci men Type: BLOOD SPECIMENOrdering Facility: [facility] Address: [address] [place] [address] Performed By: #### 5 7021-8 ####[facility]CL[facility] [id number] [place] [address] [place] Monocytes/100 WBC (Bld) 12.3 % Normal [facility] Comment on above: Order Comment: Speci men Type: BLOOD SPECIMENOrdering Facility: [facility] Address: [address] [place] [address] Performed By: #### 5 7021-8 ####[facility]CL[facility] [id number] [place] [address] [place] Neutrophils (Bld) [#/Vol] 2.15 10*3/uL Normal 1.45-7.50 [facility] Comment on above: Order Comment: Speci men Type: BLOOD SPECIMENOrdering Facility: [facility] Address: [address] [place] [address] Performed By: #### 5 7021-8 ####[facility] ROBINSONWNCLIA [id number] [place] [address] [place] Neutrophils/100 WBC (Bld) 52.7 % Normal [facility] Comment on above: Order Comment: Speci men Type: BLOOD SPECIMENOrdering Facility: [facility] Address: [address] [place] [address] Performed By: #### 5 7021-8 ####[facility]ONLIA [id number] [place] [address] [place] Nucleated RBC (Bld) [#/Vol] 10*3/uL Normal <0.01 [facility] Comment on above: Order Comment: Speci men Type: BLOOD SPECIMENOrdering Facility: [facility] Address: [address] [place] [address] Performed By: #### 5 7021-8 ####[facility]LIA [id number] [place] [address] [place] Nucleated RBC/100 WBC (Bld) [Ratio] 0.0 /100 WBC Normal [facility] Comment on above: Order Comment: Speci men Type: BLOOD SPECIMENOrdering Facility: [facility] Address: [address] [place] [address] Performed By: #### 5 7021-8 ####[facility]ONLIA [id number] [place] [address] [place] Platelet mean volume (Bld) [Entitic vol] 9.1 fL Normal 9.0-12.7 [facility] Comment on above: Order Comment: Speci men Type: BLOOD SPECIMENOrdering Facility: [facility] Address: [address] [place] [address] Performed By: #### 5 7021-8 ####[facility] [id number] [place] [address] [place] Platelets (Bld) [#/Vol] 197 10*3/uL Normal 150-400 [facility] Comment on above: Order Comment: Speci men Type: BLOOD SPECIMENOrdering Facility: [facility] Address: [address] [place] [address] Performed By: #### 5 7021-8 ####[facility]ENNCLINDAA [id number] [place] [address] [place] RBC (Bld) [#/Vol] 5.21 10*6/uL Normal 4.20-6.00 [facility] Comment on above: Order Comment: Speci men Type: BLOOD SPECIMENOrdering Facility: [facility] Address: [address] [place] [address] Performed By: #### 5 7021-8 ####[facility] [id number] [place] [address] [place] WBC (Bld) [#/Vol] 4.08 10*3/uL Normal 3.70-11.00 [facility] Comment on above: Order Comment: Speci men Type: BLOOD SPECIMENOrdering Facility: [facility] Address: [address] [place] [address] Performed By: #### 5 7021-8 ####[facility] [id number] [place] [address] [place] CNOVon 03-03-2025 CNOV Office Visit (UCWSTR ) MAXIMO NIXON ([id number]) 1940 M Date Time Provider Department 03/03/25 2:00 PM AMANDA ZAVALA [facility] During your visit today, we recorded the following information about you: Temperature Pulse Respiration Blood pressure 97.3 degrees 68/minute 18/minute 131/81 Weight 93.1 kg Amanda Zavala APRN.CHILD CARE GROUP LEADER 03/03/2025 2:54 PM Signed [facility] Subjective Maximo Nixon is a 84 year old male. Patient presents with: Sore Throat: X 1 week, nose was bleeding but has not done so in 2 days Patient came in with complaints of sore throat. Patient says it worse when he swallows. Patient says he also has been getting very nauseous. Patient's been eating a lot of Vicks VapoRub cough drops. Patient says when he stopped using the cough drops with nosebleeds did not let up. Patient denies any other symptoms. The history is provided by the patient. No second language tutor was used. Sore Throat Review of Systems Constitutional: Negative. HENT: Positive for sore throat. Objective BP 131/81 (BP Site: Left Arm, BP Position: Sitting) Pulse 68 Temp 36.3 ?C (97.3 ?F) Resp 18 Wt 93.1 kg (205 lb 4 oz) SpO2 96% BMI 27.08 kg/m? Physical Exam Constitutional: Appearance: Normal appearance. HENT: Right Ear: Tympanic membrane, ear canal and external ear normal. Left Ear: Tympanic membrane, ear canal and external ear normal. Nose: Nose normal. Mouth/Throat: Mouth: Mucous membranes are moist. Pharynx: Posterior oropharyngeal erythema present. Eyes: Pupils: Pupils are equal, round, and reactive to light. Cardiovascular: Rate and Rhythm: Normal rate and regular rhythm. Heart sounds: Normal heart sounds. Pulmonary: Effort: Pulmonary effort is normal. Breath sounds: Normal breath sounds. Neurological: Mental Status: He is alert. PAST MEDICAL HISTORY Diagnosis Date Acute gastritis without mention of hemorrhage Arrhythmia Benign prostatic hyperplasia with nocturia BPH associated with nocturia Esophagitis, unspecified Essential hypertension, benign 05/25/2012 Gastroesophageal reflux disease, unspecified whether esophagitis present GERD (gastroesophageal reflux disease) OAB (overactive bladder) Paroxysmal A-fib (HCC) transitory 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, 2012 PND (post-nasal drip) S/P MVR (mitral valve repair) Vasomotor rhinitis PAST SURGICAL HISTORY Procedure Laterality Date COLONOSCOPY FLX DX W/COLLJ SPEC WHEN PFRMD 05/06/11 EGD TRANSORAL BIOPSY SINGLE/MULTIPLE 05/06/11 ESOPHAGOGASTRODUODENOSCOPY TRANSORAL DIAGNOSTIC 11/28/2009 EGD ESOPHAGOGASTRODUODENOSCOPY TRANSORAL DIAGNOSTIC 02/13/2020 EGD PAST SURGICAL HISTORY OF 2007 bilateral TKA PAST SURGICAL HISTORY OF Right 2003 inguinal hernia PAST SURGICAL HISTORY OF 10/2013 heart valve repair [facility] MAIN RPR 1ST INGUN HRNA AGE 5 YRS/> REDUCIBLE 08/25/2020 Hernia repair, inguinal XCAPSL CTRC RMVL INSJ IO LENS PROSTH W/O ECP Right 06/04/2015 Cataract Extraction with PC IOL XCAPSL CTRC RMVL INSJ IO LENS PROSTH W/O ECP 07/02/2015 Cataract Extraction with PC IOL OS ALLERGIES Lisinopril MEDICATIONS amLODIPine (NORVASC) 2.5 mg tablet Take 1 tablet by mouth once daily. nutritional supplement/fiber (JUICE PLUS FIBRE ORAL) Take by mouth. Takes eight daily MULTI-VITAMIN ORAL Take by mouth once daily. aspirin, enteric coated (ASPIRIN, ENTERIC COATED) 81 mg EC tablet Take 81 mg by mouth once daily. ascorbic acid (VITAMIN C) 500 mg tablet Take 2 tablets by mouth once daily. Trospium (SANCTURA SR) 60 mg cp24 Take 1 capsule by mouth once daily. Take on an empty stomach (Patient not taking: Reported on 03/03/2025) FAMILY HISTORY Problem Relation Age of Onset Alzheimer's Disease Father other (Other) Daughter brain tumor Allergies Daughter None Son No Ocular Disease No Family History Social History Tobacco Use Smoking status: Never Smokeless tobacco: Never Vaping Use Vaping status: Never Used Substance Use Topics Alcohol use: No Drug use: Never {ASSESSMENT/PLAN: 1. Sore throat - ICD9: 462, ICD10: J02.9 - Group A strep molecular testing negative - Discussed supportive care treatment with fluids, rest and analgesia. - Contagious dz precautions discussed- including considered contagious until on antibiotics for 24 hours - STREP A MOLECULAR (POC) At this time patient was suggested to follow-up with primary care to talk about possible manager legal due to chronic sinus congestion and drainage. Patient says he has had drainage for many years. This could be a cause for the sore throat due to season changes. Patient agreeable to following up with PCP Amanda Zavala APRN.CHILD CARE GROUP LEADER MDM Procedures Allergies As of Date: 03/03/2025 Noted Allergy Reaction LISINOPRIL 04/09/2013 3 - Cough Date Reviewed: 03/03/2025 Reviewed by: Ayla Porras OCCA - Fully Assessed Reason (more content not included)... Normal [facility] STREP A MOLECULAR (POC)on Procedural Control Valid [facility] Strep A (POCT) Negative Negative [facility] CNPNon 02-28-2025 CNPN Telephone (PUMT) MAXIMO NIXON ([id number]) 1940 M Date Time Provider Department 02/28/25 DIEGO HUFFMAN [facility] During your visit today, we recorded the following information about you: Diego Huffman MD 02/28/2025 8:11 AM Signed Pateint's labs are stable except his red count is up. Recheck labs in one week. Can be due to too little fluids. Push fluids and recheck ordered labs. Linnette Munoz LPN 02/28/2025 8:28 AM Signed Phoned patient left detailed message with lab results, notes from Dr Huffman on patient voicemail. Allergies As of Date: 02/28/2025 Noted Allergy Reaction LISINOPRIL 04/09/2013 3 - Cough Date Reviewed: 02/18/2025 Reviewed by: Cornelius Dasilva APRN.KALEB, DNP - Fully Assessed Reason for Visit: Results [95] Primary Visit Diagnosis:Polycythemia [D75.1] Order(s):COMPLETE BLOOD COUNT AND DIFFERENTIAL [SQCBCDIF] Order #: [id number] FUTURE CARBOXYHEMOGLOBIN ELLE [SQCO] Order #: [id number] FUTURE Prescriptions as of 02/28/2025 - Trospium (SANCTURA SR) 60 mg cp24 Take 1 capsule by mouth once daily. Take on an empty stomach - amLODIPine (NORVASC) 2.5 mg tablet Take 1 tablet by mouth once daily. - nutritional supplement/fiber (JUICE PLUS FIBRE ORAL) Take by mouth. Takes eight daily - MULTI-VITAMIN ORAL Take by mouth once daily. - aspirin, enteric coated (ASPIRIN, ENTERIC COATED) 81 mg EC tablet Take 81 mg by mouth once daily. - ascorbic acid (VITAMIN C) 500 mg tablet Take 2 tablets by mouth once daily. Meds Comments as of 10/23/2013: mvi ld 10/19 Problem List As Of Date 02/28/2025 Noted Resolved Perennial non-allergic rhinitis [J31.0] 04/08/2011 Unspecified hyperplasia of prostate with urinar*04/08/2011 09/01/2021 Special screening for malignant neoplasms, colo*04/16/2011 09/01/2021 Acute gastritis without mention of hemorrhage [*05/06/2011 12/26/2014 Esophagitis, unspecified [K20.90] 05/06/2011 04/28/2017 Supraspinatus tendonitis [M75.90] 06/28/2011 04/28/2017 Essential hypertension, benign [I10] 05/25/2012 Difficulty voiding [R39.198] 12/21/2012 11/03/2013 Urgency of urination [R39.15] 12/21/2012 Nocturia [R35.1] 12/21/2012 09/07/2023 Mitral valve disease, 3-4+ MR by echo 08/10 [I05*08/13/2013 12/04/2021 Pre-op testing [Z01.818] 10/23/2013 11/03/2013 Mechanically assisted ventilation [Z99.11] 10/30/2013 10/31/2013 Acute pain [R52] 10/30/2013 12/26/2014 Cardiac insufficiency following cardiac surgery*10/30/2013 11/01/2013 Atelectasis/pleural effusion/FVO. [J98.11] 10/31/2013 12/26/2014 Fluid overload [E87.70] 10/31/2013 10/31/2013 SUMMARY [V999.95] 10/31/2013 BPH (benign prostatic hyperplasia) [N40.0] 11/01/2013 Post-op Junctional Rhyhtm with paroxysmal A-fib*11/01/2013 04/28/2017 Stress hyperglycemia [R73.9] 11/01/2013 11/03/2013 S/P MVR (mitral valve repair) [Z98.890] 12/13/2013 GERD (gastroesophageal reflux disease) [K21.9] 01/20/2015 Memory loss [R41.3] 02/05/2015 Other and combined forms of senile cataract [H2*03/31/2015 07/08/2015 Hypermetropia [H52.00] 03/31/2015 Regular astigmatism [H52.229] 03/31/2015 11/10/2021 Presbyopia [H52.4] 03/31/2015 11/10/2021 Nonexudative age-related macular degeneration, *03/31/2015 Astigmatism - Both Eyes [H52.209] 05/19/2015 Vitreous floaters of both eyes [H43.393] 05/19/2015 S/P cataract surgery - Right Eye [Z98.49] 06/05/2015 11/10/2021 Combined form of senile cataract of left eye [H*06/12/2015 07/08/2015 Regular astigmatism of left eye [H52.222] 06/12/2015 11/10/2021 Status post cataract surgery [Z98.49] 07/08/2015 11/10/2021 Pseudophakia [Z96.1] 07/08/2015 Postoperative atrial fibrillation (HCC) [I97.89* Vasomotor rhinitis [J30.0] 05/29/2018 Cataract, secondary obscuring vision, right [H2*11/17/2021 Bradycardia following surgery [I97.89] 12/04/2021 Meibomian gland dysfunction (MGD) of upper and *02/15/2022 Punctate keratitis, 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] 02/15/2022 After cataract not obscuring vision, left [H26.*09/09/2022 Sensorineural hearing loss, 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.3]12/10/2024 Encounter Status:Closed by LINNETTE MUNOZ on 02/28/25 Normal [facility] CBC W Auto Differential pane l (Bld)on 02-27-2025 Basophils (Bld) [#/Vol] 0.04 10*3/uL Normal <0.11 [facility] Comment on above: Order Comment: Speci men Type: BLOOD SPECIMENOrdering Facility: [facility] Address: [address] [place] [address] Performed By: #### 5 7021-8 ####[facility] ROBINSONWNCLIA [id number] [place] [address] [place] Basophils/100 WBC (Bld) 0.9 % Normal [facility] Comment on above: Order Comment: Speci men Type: BLOOD SPECIMENOrdering Facility: [facility] Address: [address] [place] [address] Performed By: #### 5 7021-8 ####[facility]IA [id number] [place] [address] [place] Differential cell count method Nom (Bld) Auto Normal [facility] Comment on above: Order Comment: Speci men Type: BLOOD SPECIMENOrdering Facility: [facility] Address: [address] [place] [address] Performed By: #### 5 7021-8 ####[facility] [id number] [place] [address] [place] Eosinophils (Bld) [#/Vol] 0.11 10*3/uL Normal <0.46 [facility] Comment on above: Order Comment: Speci men Type: BLOOD SPECIMENOrdering Facility: [facility] Address: [address] [place] [address] Performed By: #### 5 7021-8 ####[facility] MILLWNCLIA [id number] [place] [address] [place] Eosinophils/100 WBC (Bld) 2.4 % Normal [facility] Comment on above: Order Comment: Speci men Type: BLOOD SPECIMENOrdering Facility: [facility] Address: [address] [place] [address] Performed By: #### 5 7021-8 ####[facility] ROBINSONMIZEJOHANLIA [id number] [place] [address] [place] Erythrocyte distribution width (RBC) [Ratio] 13.2 % Normal 11.5-15.0 [facility] Comment on above: Order Comment: Speci men Type: BLOOD SPECIMENOrdering Facility: [facility] Address: [address] [place] [address] Performed By: #### 5 7021-8 ####[facility] [id number] [place] [address] [place] Hematocrit (Bld) [Volume fraction] 51.3 % High 39.0-51.0 [facility] Comment on above: Order Comment: Speci men Type: BLOOD SPECIMENOrdering Facility: [facility] Address: [address] [place] [address] Performed By: #### 5 7021-8 ####[facility] [id number] [place] [address] [place] Hemoglobin (Bld) [Mass/Vol] 17.6 g/dL High 13.0-17.0 [facility] Comment on above: Order Comment: Speci men Type: BLOOD SPECIMENOrdering Facility: [facility] Address: [address] [place] [address] Performed By: #### 5 7021-8 ####[facility] [id number] [place] [address] [place] Immature granulocytes (Bld) [#/Vol] 10*3/uL Normal <0.10 [facility] Comment on above: Order Comment: Speci men Type: BLOOD SPECIMENOrdering Facility: [facility] Address: [address] [place] [address] Performed By: #### 5 7021-8 ####[facility] [id number] [place] [address] [place] Immature granulocytes/100 WBC (Bld) 0.4 % Normal [facility] Comment on above: Order Comment: Speci men Type: BLOOD SPECIMENOrdering Facility: [facility] Address: [address] [place] [address] Performed By: #### 5 7021-8 ####[facility] [id number] [place] [address] [place] Lymphocytes (Bld) [#/Vol] 1.39 10*3/uL Normal 1.00-4.00 [facility] Comment on above: Order Comment: Speci men Type: BLOOD SPECIMENOrdering Facility: [facility] Address: [address] [place] [address] Performed By: #### 5 7021-8 ####[facility] [id number] [place] [address] [place] Lymphocytes/100 WBC (Bld) 30.7 % Normal [facility] Comment on above: Order Comment: Speci men Type: BLOOD SPECIMENOrdering Facility: [facility] Address: [address] [place] [address] Performed By: #### 5 7021-8 ####[facility] [id number] [place] [address] [place] MCH (RBC) [Entitic mass] 31.3 pg Normal 26.0-34.0 [facility] Comment on above: Order Comment: Speci men Type: BLOOD SPECIMENOrdering Facility: [facility] Address: [address] [place] [address] Performed By: #### 5 7021-8 ####[facility] [id number] [place] [address] [place] MCHC (RBC) [Mass/Vol] 34.3 g/dL Normal 30.5-36.0 [facility] Comment on above: Order Comment: Speci men Type: BLOOD SPECIMENOrdering Facility: [facility] Address: [address] [place] [address] Performed By: #### 5 7021-8 ####[facility] [id number] [place] [address] [place] MCV (RBC) [Entitic vol] 91.3 fL Normal 80.0-100.0 [facility] Comment on above: Order Comment: Speci men Type: BLOOD SPECIMENOrdering Facility: [facility] Address: [address] [place] [address] Performed By: #### 5 7021-8 ####[facility] [id number] [place] [address] [place] Monocytes (Bld) [#/Vol] 0.56 10*3/uL Normal <0.87 [facility] Comment on above: Order Comment: Speci men Type: BLOOD SPECIMENOrdering Facility: [facility] Address: [address] [place] [address] Performed By: #### 5 7021-8 ####[facility] [id number] [place] [address] [place] Monocytes/100 WBC (Bld) 12.4 % Normal [facility] Comment on above: Order Comment: Speci men Type: BLOOD SPECIMENOrdering Facility: [facility] Address: [address] [place] [address] Performed By: #### 5 7021-8 ####[facility]CL[facility] [id number] [place] [address] [place] Neutrophils (Bld) [#/Vol] 2.41 10*3/uL Normal 1.45-7.50 [facility] Comment on above: Order Comment: Speci men Type: BLOOD SPECIMENOrdering Facility: [facility] Address: [address] [place] [address] Performed By: #### 5 7021-8 ####[facility] ROBINSONWJOHANLIA [id number] [place] [address] [place] Neutrophils/100 WBC (Bld) 53.2 % Normal [facility] Comment on above: Order Comment: Speci men Type: BLOOD SPECIMENOrdering Facility: [facility] Address: [address] [place] [address] Performed By: #### 5 7021-8 ####[facility] ROBINSONMIZEJOHANLIA [id number] [place] [address] [place] Nucleated RBC (Bld) [#/Vol] 10*3/uL Normal <0.01 [facility] Comment on above: Order Comment: Speci men Type: BLOOD SPECIMENOrdering Facility: [facility] Address: [address] [place] [address] Performed By: #### 5 7021-8 ####[facility] [id number] [place] [address] [place] Nucleated RBC/100 WBC (Bld) [Ratio] 0.0 /100 WBC Normal [facility] Comment on above: Order Comment: Speci men Type: BLOOD SPECIMENOrdering Facility: [facility] Address: [address] [place] [address] Performed By: #### 5 7021-8 ####[facility] [id number] [place] [address] [place] Platelet mean volume (Bld) [Entitic vol] 9.1 fL Normal 9.0-12.7 [facility] Comment on above: Order Comment: Speci men Type: BLOOD SPECIMENOrdering Facility: [facility] Address: [address] [place] [address] Performed By: #### 5 7021-8 ####[facility] [id number] [place] [address] [place] Platelets (Bld) [#/Vol] 189 10*3/uL Normal 150-400 [facility] Comment on above: Order Comment: Speci men Type: BLOOD SPECIMENOrdering Facility: [facility] Address: [address] [place] [address] Performed By: #### 5 7021-8 ####[facility]ITALWNCLIA [id number] [place] [address] [place] RBC (Bld) [#/Vol] 5.62 10*6/uL Normal 4.20-6.00 [facility] Comment on above: Order Comment: Speci men Type: BLOOD SPECIMENOrdering Facility: [facility] Address: [address] [place] [address] Performed By: #### 5 7021-8 ####[facility] [id number] [place] [address] [place] WBC (Bld) [#/Vol] 4.53 10*3/uL Normal 3.70-11.00 [facility] Comment on above: Order Comment: Speci men Type: BLOOD SPECIMENOrdering Facility: [facility] Address: [address] [place] [address] Performed By: #### 5 7021-8 ####[facility] [id number] [place] [address] [place] Comprehensive metabolic 2000 panelon 02-27-2025 Albumin [Mass/Vol] 4.2 g/dL Normal 3.9-4.9 [facility] Comment on above: Order Comment: Speci men Type: BLOOD SPECIMENOrdering Facility: [facility] Address: [address] [place] [address] Performed By: #### 2 4323-8 ####[facility] [id number] [place] [address] [place] ALP [Catalytic activity/Vol] 65 U/L Normal 38-113 [facility] Comment on above: Order Comment: Speci men Type: BLOOD SPECIMENOrdering Facility: [facility] Address: [address] [place] [address] Performed By: #### 2 4323-8 ####[facility] ROBINSONArikNCLIA [id number] [place] [address] [place] ALT [Catalytic activity/Vol] 12 U/L Normal 10-54 [facility] Comment on above: Order Comment: Speci men Type: BLOOD SPECIMENOrdering Facility: [facility] Address: [address] [place] [address] Performed By: #### 2 4323-8 ####[facility] [id number] [place] [address] [place] Anion gap [Moles/Vol] 6 mmol/L Low 8-15 [facility] Comment on above: Order Comment: Speci men Type: BLOOD SPECIMENOrdering Facility: [facility] Address: [address] [place] [address] Performed By: #### 2 4323-8 ####[facility]CL[facility] [id number] [place] [address] [place] AST [Catalytic activity/Vol] 20 U/L Normal 14-40 [facility] Comment on above: Order Comment: Speci men Type: BLOOD SPECIMENOrdering Facility: [facility] Address: [address] [place] [address] Performed By: #### 2 4323-8 ####[facility]CL[facility] [id number] [place] [address] [place] Bilirubin [Mass/Vol] 0.8 mg/dL Normal 0.2-1.3 [facility] Comment on above: Order Comment: Speci men Type: BLOOD SPECIMENOrdering Facility: [facility] Address: [address] [place] [address] Performed By: #### 2 4323-8 ####[facility] RADHA MILLTOWNCLIA [id number] [place] [address] [place] Calcium [Mass/Vol] 9.3 mg/dL Normal 8.5-10.2 [facility] Comment on above: Order Comment: Speci men Type: BLOOD SPECIMENOrdering Facility: [facility] Address: [address] [place] [address] Performed By: #### 2 4323-8 ####[facility] MILLTOWNCLIA [id number] [place] [address] [place] Chloride [Moles/Vol] 105 mmol/L Normal 98-107 [facility] Comment on above: Order Comment: Speci men Type: BLOOD SPECIMENOrdering Facility: [facility] Address: [address] [place] [address] Performed By: #### 2 4323-8 ####[facility] [id number] [place] [address] [place] CO2 [Moles/Vol] 28 mmol/L Normal 22-30 [facility] Comment on above: Order Comment: Speci men Type: BLOOD SPECIMENOrdering Facility: [facility] Address: [address] [place] [address] Performed By: #### 2 4323-8 ####[facility] MILLWNCLIA [id number] [place] [address] [place] Creatinine [Mass/Vol] 1.09 mg/dL Normal 0.73-1.22 [facility] Comment on above: Order Comment: Speci men Type: BLOOD SPECIMENOrdering Facility: [facility] Address: [address] [place] [address] Performed By: #### 2 4323-8 ####[facility]CL[facility] [id number] [place] [address] [place] Creatinine and Glomerular filtration rate.predicted panel (S/P/Bld) 68 mL/min/1.73m??? Normal >=60 [facility] Comment on above: Order Comment: Tiesha maxwell Type: BLOOD SPECIMENOrdering Facility: [facility] Address: [address] [place] [address] Result Comment: Svetlana mated Glomerular Filtration Rate (eGFR) is calculated using the 2020 CKD-EPI creatinine equation. This equation utilizes serum creatinine, sex, and age as parameters. The creatinine assay has traceable calibration to isotope dilution-mass spectrometry. Refer to KDIGO guidelines for clinical interpretation. In patients with unstable renal function, e.g. those with acute kidney injury, the eGFR may not accurately reflect actual GFR. Performed By: #### 2 4323-8 ####[facility] [id number] [place] [address] [place] Glucose [Mass/Vol] 96 mg/dL Normal 74-99 [facility] Comment on above: Order Comment: Tiesha maxwell Type: BLOOD SPECIMENOrdering Facility: [facility] Address: [address] [place] [address] Result Comment: The [place] [employer] (ADA) provides guidance for cutoff values for fasting glucose and random glucose. The ADA defines fasting as no caloric intake for at least 8 hours. Fasting plasma glucose results between 100 to 125 mg/dL indicate increased risk for diabetes (prediabetes). Fasting plasma glucose results greater than or equal to 126 mg/dL meet the criteria for diagnosis of diabetes. In the absence of unequivocal hyperglycemia, results should be confirmed by repeat testing. In a patient with classic symptoms of hyperglycemia or hyperglycemic crisis, random plasma glucose results greater than or equal to 200 mg/dL meet the criteria for diagnosis of diabetes. Reference: Standards of Medical Care in Diabetes 2016, [place] [employer]. Diabetes Care. 2016.39(Suppl 1). Performed By: #### 2 4323-8 ####[facility] [id number] [place] [address] [place] Potassium [Moles/Vol] 4.3 mmol/L Normal 3.7-5.1 [facility] Comment on above: Order Comment: Speci men Type: BLOOD SPECIMENOrdering Facility: [facility] Address: [address] [place] [address] Performed By: #### 2 4323-8 ####[facility] ROBINSONWNCLIA [id number] [place] [address] [place] Protein [Mass/Vol] 6.8 g/dL Normal 6.3-8.0 [facility] Comment on above: Order Comment: Speci men Type: BLOOD SPECIMENOrdering Facility: [facility] Address: [address] [place] [address] Performed By: #### 2 4323-8 ####[facility]CL[facility] [id number] [place] [address] [place] Sodium [Moles/Vol] 139 mmol/L Normal 136-144 [facility] Comment on above: Order Comment: Speci men Type: BLOOD SPECIMENOrdering Facility: [facility] Address: [address] [place] [address] Performed By: #### 2 4323-8 ####[facility]CL[facility] [id number] [place] [address] [place] Urea nitrogen [Mass/Vol] 17 mg/dL Normal 9-24 [facility] Comment on above: Order Comment: Speci men Type: BLOOD SPECIMENOrdering Facility: [facility] Address: [address] [place] [address] Performed By: #### 2 4323-8 ####[facility] [id number] [place] [address] [place] Lipid 1996 panelon 5 Cholesterol [Mass/Vol] 107 mg/dL Normal <200 [facility] Comment on above: Order Comment: Speci men Type: BLOOD SPECIMENOrdering Facility: [facility] Address: [address] [place] [address] Result Comment: <200 mg/dL, Desirable 200-239 mg/dL, Borderline high >239 mg/dL, High Performed By: #### 2 4331-1 ####[facility] LABCLIA [id number] [address] [address] [facility] [id number] [place] [address] [place] Cholesterol in HDL [Mass/Vol] 56 mg/dL Normal >39 [facility] Comment on above: Order Comment: Speci men Type: BLOOD SPECIMENOrdering Facility: [facility] Address: [address] [place] [address] Result Comment: 40-5 9 mg/dL, Acceptable >59 mg/dL, High: Negative risk factor for coronary heart disease <40 mg/dL, Low: Positive risk factor for coronary heart disease Performed By: #### 2 4331-1 ####[facility] LABCLIA [id number] [address] [id number] [place] [address] [place] Cholesterol in LDL [Mass/Vol] 41 mg/dL Normal <100 [facility] Comment on above: Order Comment: Speci men Type: BLOOD SPECIMENOrdering Facility: [facility] Address: [address] [place] [address] Result Comment: <100 mg/dL, Optimal 100-129 mg/dL, Near optimal/above optimal 130-159 mg/dL, Borderline high 160-189 mg/dL, High >189 mg/dL, Very high Secondary prevention optimal LDL Cholesterol levels are recommended to be < 70 mg/dL Performed By: #### 2 4331-1 ####[facility] LABIA [id number] [address] [address] [facility] [id number] [place] [address] [place] Cholesterol in LDL/Cholesterol in HDL [Mass ratio] 0.73 {ratio} Normal <2.54 [facility] Comment on above: Order Comment: Speci men Type: BLOOD SPECIMENOrdering Facility: [facility] Address: [address] [place] [address] Result Comment: Aleisha martinez: 1. National Cholesterol Education Program ATP III Guideline At-A-Glance Quick Desk Reference: National Heart, Lung, and Blood [place]. National Institutes of Health. 2001: NIH Publication No. 01-3305. 2. An International Atherosclerosis Society position paper: global recommendations for the management of dyslipidemia: executive summary, Atherosclerosis. 2014: 232(2):410-413. Performed By: #### 2 4331-1 ####[facility] LABCLIA [id number] [id number] [place] [address] OF [facility] Cholesterol in VLDL [Mass/Vol] 10 mg/dL Normal <30 [facility] Comment on above: Order Comment: Speci men Type: BLOOD SPECIMENOrdering Facility: [facility] Address: [address] [place] [address] Performed By: #### 2 4331-1 ####[facility] LABCLIA [id number] [address] [id number] [place] [address] STATES OF [facility] Cholesterol non HDL [Mass/Vol] 51 mg/dL Normal <130 [facility] Comment on above: Order Comment: Speci men Type: BLOOD SPECIMENOrdering Facility: [facility] Address: [address] [place] [address] Result Comment: <130 mg/dL, Optimal 130-159 mg/dL, Near optimal/above optimal 160-189 mg/dL, Borderline high 190-219 mg/dL, High >219 mg/dL, Very high Secondary prevention optimal non HDL Cholesterol levels are recommended to be <100 mg/dL Performed By: #### 2 4331-1 ####[facility] LABCLIA [id number] [address] [place] [address] [place] [id number] [place] [address] [place] Cholesterol.total/Ch olesterol in HDL [Mass ratio] 1.91 {ratio} Normal <5.10 [facility] Comment on above: Order Comment: Speci men Type: BLOOD SPECIMENOrdering Facility: [facility] Address: [address] [place], [place] [address] Performed By: #### 2 4331-1 ####[facility] LABCLIA [id number] [address], [facility] [place] [id number] [place] [address] FASTING TIME 12 hrs Normal [facility] Comment on above: Order Comment: Speci men Type: BLOOD SPECIMENOrdering Facility: [facility] Address: [address] [place], [place] [address] Performed By: #### 2 4331-1 ####[facility] LABCLIA [id number] [address] [place] [address] [facility] [id number] [place] [address] [place] Triglyceride [Mass/Vol] 50 mg/dL Normal <150 [facility] Comment on above: Order Comment: Speci men Type: BLOOD SPECIMENOrdering Facility: [facility] Address: [address] [place] [address] Result Comment: <150 mg/dL, Normal 150-199 mg/dL, Borderline high 200-499 mg/dL, High >499 mg/dL, Very high Performed By: #### 2 4331-1 ####[facility] LABCLIA [id number] [address] [place] [address] [facility] [id number] [place] [address] [facility] Office Visit (UROLWS ) MAXIMO NIXON ([id number]) 1940 M Date Time Provider Department 02/18/25 9:00 AM CORNELIUS DASILVA During your visit today, we recorded the following information about you: Temperature Pulse Respiration Blood pressure 97.4 degrees 68/minute 14/minute 158/84 Weight Height 92.5 kg 1.854 m Kayli Newman LPN 02/18/2025 9:31 AM Signed Verified name and date of . CC Post Void Residual HPI: Jean Pierre leonardo is here now for an appointment with Steffany Shields APRN, DNP Procedure: Explained procedure to patient and verbalizes understanding. Performed a PVR. Patient urinated and instructed to empty bladder as much as possible just prior to having PVR done using bladder ultrasound scanner. Results of scan: 2 mL The patient tolerated the procedure well. Plan: Appointment with Cornelius. Cornelius Dasilva APRN.KIANA MANUEL 02/18/2025 9:31 AM Signed COUNT INCLUDES THE [facility] MALE PATIENT - HISTORY AND PHYSICAL EXAMINATION PATIENT: Maximo Nixon PCP: Diego Huffman MD CHIEF COMPLAINT: BPH/LUTS/OAB follow up HISTORY OF PRESENT ILLNESS: 84 year old year old male with BPH/LUTS/OAB follow up Past Med Hx: BHP, OAB, GERD, HTN, AFIB, Rhinitis Previously seen by Paul Chatterjee in Jul 2023. Reported increased frequency and Nocturia, previous Green Light PVP with [place]. Dr. Segovia consult 2015 and recommended try OAB medication, discussed trial of Myrbetriq and increase water intake for 3 months if still having urgency recommend new UDS and Cystoscopy and possible Botox Injection. Tried Ditropan XL (10, 15 mg)- pt did not notice an improvement in his symptoms Started on Mybetriq by Wood Chatterjee and told to follow up in 3 months. Did not follow up in 3 months. States that Myrbetriq was expensive and didn't help him. Didn't go back because test that Paul was talking about doing he had done before and wasn't helpful. Dr. Naranjo discussed about consideration for Botox and/or InterStim per his last note in 2014. S/p greenlight laser 02/26/[address] Naranjo. Since his greenlight procedure he has had intractable urgency/frequency. Started on Flomax. Flomax was causing him to leak urine at times. Has been on Oxybutynin in 2016. Unsure why he stopped medication. Restarted on Trospium 20mg, no sig change in symptoms. PRESENTING HISTORY: Hematuria: none Obstructive voiding symptoms: weak stream. Irritative voiding symptoms: frequency and urgency Urinary retention: no Urinary incontinence: no Urinary tract infection: no Patient Entered Questionnaires: INTERNATIONAL PROSTATE SYMPTOM SCORE (I-PSS) PREVIOUS TOTAL IPSS SCORE: 20 QOL = 6 1. Incomplete emptying 0 2. Frequency 5 3. Intermittency 2 4. Urgency 5 5. Weak stream 5 6. Straining 0 7. 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, 2012 PND (post-nasal drip) S/P MVR (mitral valve repair) Vasomotor rhinitis PAST SURGICAL HISTORY Procedure Laterality Date COLONOSCOPY FLX DX W/COLLJ SPEC WHEN PFRMD 05/06/11 EGD TRANSORAL BIOPSY SINGLE/MULTIPLE 05/06/11 ESOPHAGOGASTRODUODENOSCOPY TRANSORAL DIAGNOSTIC 11/28/2009 EGD ESOPHAGOGASTRODUODENOSCOPY TRANSORAL DIAGNOSTIC 02/13/2020 EGD PAST SURGICAL HISTORY OF 2007 bilateral TKA PAST SURGICAL HISTORY OF Right 2003 inguinal hernia PAST SURGICAL HISTORY OF 10/2013 heart valve repair [facility] MAIN RPR 1ST INGUN HRNA AGE 5 YRS/> REDUCIBLE 08/25/2020 Hernia repair, inguinal XCAPSL CTRC RMVL INSJ IO LENS PROSTH W/O ECP Right 06/04/2015 Cataract Extraction with PC IOL XCAPSL CTRC RMVL INSJ IO LENS PROSTH W/O ECP 07/02/2015 Cataract Extraction with PC IOL OS Social History Tobacco Use Smoking status: Never Smokeless tobacco: Never Vaping Use Vaping status: Never Used Substance Use Topics Alcohol use: No Drug use: Never FAMILY HISTORY Problem Relation Age of Onset Alzheimer's Disease Father other (Other) Daughter brain tumor Allergies Daughter None Son No Ocular Disease No Family History MEDICATIONS: Current Outpatient Medications Medication Sig amLODIPine (NORVASC) 2.5 mg tablet Take 1 tablet by mouth once daily. nutritional supplement/fiber (JUICE PLUS FIBRE ORAL) Take by mouth. Takes eight daily MULTI-VITAMIN ORAL Take by mouth once daily. aspirin, enteric coated (ASPIRIN, ENTERIC COATED) 81 mg EC tablet Take 81 mg by mouth once daily. ascorbic acid (VITAMIN C) 500 mg tablet Take 2 (more content not included)... Normal [facility] UA DIP, URINE (POC)on 2024 BILIRUBIN UA (POCT) Negative Negative [facility] CLARITY UA (POCT) Clear [facility] COLOR UA (POCT) Dark yellow [facility] GLUCOSE UA (POCT) Negative Negative mg/dL [facility] Hemoglobin Ql (U) Negative Negative [facility] KETONE UA (POCT) Negative Negative mg/dL [facility] LEUKOCYTES UA (POCT) Negative Negative [facility] NITRITE UA (POCT) Negative Negative [facility] PH UA (POCT) 6 4.5 - 8.0 [facility] Protein Ql (U) Negative Negative mg/dL [facility] SPECIFIC GRAVITY UA (POCT) 1.025 1.005 - 1.030 [facility] UROBILINOGEN UA (POCT) 1 Normal E.U./dL [facility] Location:[facility], [address], [place], [place], [address] [place] [address] POINT OF CARE [facility] ECHOon 01-25-2025 Echocardiography Echocardiography Rep ort: Transthoracic Echo [facility] Office Date of service: 01/25/2025 1:58:36 PM HEALTH THERAPIST Ordering physician: LYNETTE PATEL Indication: Mitral Valve Repair Technologist: Irwin To Interpreting physician: Lynette Patel MD PATIENT: Name: MAXIMO NIXON : 1940 Age: 84 years Gender: M History of hypertension and valvular heart disease. Previous cardiovascular interventions: Mitral valve repair (10/30/2013) Primary rhythm: sinus. Height: 188.00 cm BSA: 2.20 m Weight: 92.30 kg BMI: 26.1 kg/m Heart rate 71 bpm Blood pressure 120/70 mmHg Color Doppler was utilized to interrogate the cardiac valves assessed and spectral Doppler was utilized to determine the flow velocities and pressure gradients reported in this exam. Myocardial strain analysis was performed in this exam to aid in the assessment of cardiac function. MEASUREMENTS: Value Indexed Normal Max aortic dimension 4.1 cm Ao < 3.8 Left atrial volume 86 ml (Ny's) 39 ml/m Da <= 34 LV ID (diastole) 4.6 cm (2D) 2.11 cm/m LV ID (systole) 3.0 cm (2D) 1.37 cm/m IVS, leaflet tips 1.2 cm (2D) Posterior wall thickness 1.2 cm (2D) Left ventricular mass 208 g (2D) 95 g/m LV stroke volume 47 ml (2D biplane) LV end diastolic volume 84 ml (2D biplane) 38.3 ml/m 34<=EDVi<75 LV end systolic volume 37 ml (2D biplane) 16.9 ml/m Ejection Fraction 56 % (2D biplane) EF > 52 FINDINGS: LEFT VENTRICLE The left ventricle is normal in size. There is mild left ventricular hypertrophy. Left ventricular systolic function is normal globally. Global LV myocardial strain is normal. Grade I left ventricular diastolic dysfunction. Mitral annular lateral E/e': 7.2. Mitral annular septal E/e': 9.3. Wall Motion: All scored segments are normal. RIGHT VENTRICLE The right ventricle is normal in size. Right ventricular systolic function is normal. Estimated right ventricular systolic pressure is 32 mmHg consistent with normal pulmonary artery pressures. Estimated right atrial pressure is 3 mmHg based on IVC assessment. LEFT ATRIUM The left atrial cavity is mildly dilated. Pulmonary Veins: The pulmonary venous pattern showed normal systolic flow. RIGHT ATRIUM The right atrial cavity is normal in size. Inferior Vena Cava: The inferior vena cava appears normal measuring 1.5 cm. The vessel decreases greater than 50 percent with inspiration. MITRAL VALVE Melgar Mitral Valve Annuloplasty Ring size #35. There is trace (trace - 1+) mitral valve regurgitation. The peak valve gradient is 2 mmHg. The mean valve gradient is 2 mmHg. The pressure half time is 120 msec. The peak mitral E/A ratio is 0.50. The average mitral E/e' ratio is 8.3. The mitral flow deceleration time is 327 msec. TRICUSPID VALVE There is mild (1+) tricuspid valve regurgitation. There is no thickening. The hepatic venous pattern showed normal systolic flow. AORTIC VALVE The aortic valve morphology was not well seen. There is moderate (2+) aortic valve regurgitation. There is mild thickening. PULMONIC VALVE There is mild (1+) pulmonic valve regurgitation. There is no thickening. AORTA The visualized aorta is dilated. Measurements - Sinus: 4.1 cm. Mid ascending aorta 3.4 cm. Distal ascending aorta 3.7 cm. PERICARDIUM The pericardium is normal. CONCLUSIONS: - Exam indication: Mitral Valve Repair - The left ventricle is normal in size. There is mild left ventricular hypertrophy. Left ventricular systolic function is normal. EF = 56 5% (2D biplane) Grade I left ventricular diastolic dysfunction. GLS= -19.1% Normal. - The right ventricle is normal in size. Right ventricular systolic function is normal. - The left atrial cavity is mildly dilated. - The visualized aorta is dilated with a maximal dimension of 4.1 cm. - Melgar Mitral Valve Annuloplasty Ring (size #35). There is trace (trace - 1+) mitral valve regurgitation. The peak gradient is 2 mmHg and the mean gradient is 2 mmHg. PHT 120 msec. - There is moderate (2+) aortic valve regurgitation. - Exam was compared with the prior CC echocardiographic exam performed on 05/11/2022. Mid ascending aorta size was 3.6cm on the prior echo. Aortic sinus was not meadured previously. Prior EF was 56%. Pk/mean MV gradients were previously 9/3 mmHg. Prior PHT was 119msec. * * * Final * * * [employer] [facility] [employer] : [id number] Normal [facility] CNOVon 01-22-2025 CNOV Office Visit (UCWSTR ) MAXIMO NIXON ([id number]) 1940 M Date Time Provider Department 01/22/25 10:30 AM SEBASTIAN HERNANDEZ [facility] During your visit today, we recorded the following information about you: Temperature Pulse Respiration Blood pressure 99.1 degrees 80/minute 16/minute 122/66 Weight 93.1 kg Sebastian Hernandez PA-C 01/22/2025 11:35 AM Signed This note was created using [employer] ([employer] Subjective Maximo Nixon is a 84 year old male. Patient is an 84-year-old male who complains of cough that he states developed overnight. Patient reports no congestion, sinus pressure, ear pain or sore throat, although he does describe throat irritation secondary to frequent, forceful coughing. Patient has no history of asthma or COPD and does not smoke. Patient denies fever, chills or myalgia. Patient reports that his positive for influenza type A several days ago. Review of Systems Respiratory: Positive for cough. All other systems reviewed and are negative. Objective BP 122/66 Pulse 80 Temp 37.3 ?C (99.1 ?F) Resp 16 Wt 93.1 kg (205 lb 4 oz) SpO2 97% BMI 26.35 kg/m? Physical Exam Vitals and nursing note reviewed. Constitutional: Appearance: Normal appearance. He is normal weight. HENT: Head: Normocephalic and atraumatic. Right Ear: Tympanic membrane, ear canal and external ear normal. Left Ear: Tympanic membrane, ear canal and external ear normal. Nose: Nose normal. Mouth/Throat: Mouth: Mucous membranes are moist. Pharynx: Oropharynx is clear. Eyes: Extraocular Movements: Extraocular movements intact. Conjunctiva/sclera: Conjunctivae normal. Pupils: Pupils are equal, round, and reactive to light. Cardiovascular: Rate and Rhythm: Normal rate and regular rhythm. Pulses: Normal pulses. Heart sounds: Normal heart sounds. Pulmonary: Effort: Pulmonary effort is normal. Breath sounds: Normal breath sounds. Musculoskeletal: Cervical back: Normal range of motion and neck supple. Skin: General: Skin is warm and dry. Capillary Refill: Capillary refill takes less than 2 seconds. Neurological: General: No focal deficit present. Mental Status: He is alert and oriented to person, place, and time. Psychiatric: Mood and Affect: Mood normal. Behavior: Behavior normal. Thought Content: Thought content normal. Judgment: Judgment normal. Assessment and Plan Unremarkable physical exam findings as noted above. Rapid influenza A/B test is positive for influenza type A. Chest x-ray is negative for acute findings as reported by the radiologist. Patient was provided with prescriptions for Tamiflu 75 mg and Tessalon 100 mg. Supportive care instructions were discussed and the patient verbalizes excellent understanding of same. CLINICAL IMPRESSION: Influenza Type A ASSESSMENT/PLAN: 1. Acute cough - ICD9: 786.2, ICD10: R05.1 (primary diagnosis) - XR CHEST 2V FRONTAL/LAT - INFLUENZA AANDB MOLECULAR (POC) 2. Influenza A - ICD9: 487.1, ICD10: J10.1 - OSELTAMIVIR 75 MG CAPSULE - BENZONATATE 100 MG CAPSULE Sebastian Hernandez PA-C Allergies As of Date: 01/22/2025 Noted Allergy Reaction LISINOPRIL 04/09/2013 3 - Cough Date Reviewed: 01/22/2025 Reviewed by: Radha Garcia MA - Fully Assessed Reason for Visit: Chest Congestion [236] Cmt: cough x 1 week Primary Visit Diagnosis:Acute cough [R05.1] Other Visit Diagnosis:Influenza A [J10.1] Order(s):XR CHEST 2V FRONTAL/LAT [[id number]] Order #: [id number]. #:[id number] [facility] INFLUENZA AANDB MOLECULAR (POC) [[id number]] Order #: [id number]. #:[id number] oseltamivir (TAMIFLU) 75 mg capsuleTake 1 capsule by mouth two times a day for 5 days.Disp: 10 capsuleRfl: 0 benzonatate (TESSALON PERLE) 100 mg capsuleTake 1 capsule by mouth three times a day as needed for cough for up to 7 days.Disp: 21 capsuleRfl: 0 Prescriptions as of 01/22/2025 - oseltamivir (TAMIFLU) 75 mg capsule Take 1 capsule by mouth two times a day for 5 days. - benzonatate (TESSALON PERLE) 100 mg capsule Take 1 capsule by mouth three times a day as needed for cough for up to 7 days. - trospium (SANCTURA) 20 mg tablet Take 1 tablet by mouth once daily. Take for overactive bladder - amLODIPine (NORVASC) 2.5 mg tablet Take 1 tablet by mouth once daily. - nutritional supplement/fiber (JUICE PLUS FIBRE ORAL) Take by mouth. Takes eight daily - MULTI-VITAMIN ORAL Take by mouth once daily. - aspirin, enteric coated (ASPIRIN, ENTERIC COATED) 81 mg EC tablet Take 81 mg by mouth once daily. - ascorbic acid (VITAMIN C) 500 mg tablet Take 2 tablets by mouth once daily. Meds Comments as of 10/23/2013: mvi ld 10/19 Problem List As Of Date 01/22/2025 Noted Resolved Perennial non-allergic rhinitis [J31.0] 04/08/2011 Unspecified hyperplasia of prostate with urinar*04/08/2011 09/01/2021 Special screening for malignant filomena (more content not included)... Normal [facility] INFLUENZA A&B MOLECULAR (POC )on 01-22-2025 Flu A (POCT) Positive Abnormal Negative [facility] Comment on above: Location:[address], [place], [address] Interpretation and review of laboratory results Abnormal [facility] Procedural Control Valid [facility] Location:[address], [place], [address] [facility] POINT OF CARE [facility] XR CHEST 2V FRONTAL/LATon XR CHEST 2V FRONTAL/LAT * * *Final Report* * * DATE OF EXAM: Jan 22 2025 11:13AM WOX [id number] - XR CHEST 2V FRONTAL/LAT / PROCEDURE REASON: Acute cough * * * * Physician Interpretation * * * * EXAMINATION: CHEST RADIOGRAPH (2 VIEW FRONTAL and LATERAL) CLINICAL HISTORY: Acute cough MQ: XC2_6 EXAM DATE/TIME: 01/22/2025 11:13 AM COMPARISON: Chest x-ray dated 04/16/2022 RESULT: Lines, tubes, and devices: None. Lungs and pleura: Stable trace linear retrocardiac atelectasis/scarring. No consolidation. No lung mass. No pleural effusion. No pneumothorax. Cardiomediastinal silhouette: Stable cardiomediastinal silhouette with valvular prosthesis. Bones and soft tissues: Degenerative changes are present within the thoracic spine. Remote left lower anterolateral rib fracture deformities. IMPRESSION: No acute radiographic abnormality. Sand Hauler: [facility] Transcribe Date/Time: Jan 22 2025 11:20A Dictated by : OMAR MAGANA MD This examination was interpreted and the report reviewed and electronically signed by: OAMR MAGANA MD on Jan 22 2025 11:21AM EST [id number] Normal [facility] XR Chest PA and Lateralon IMPRESSION: No acute radiographic abnormality. Sand Hauler: [facility] Transcribe Date/Time: Jan 22 2025 11:20A Dictated by : OMAR MAGANA MD This examination was interpreted and the report reviewed and electronically signed by: OMAR MAGANA MD on Jan 22 2025 11:21AM EST DIVISION OF RADIOLOGY * * *Final Report* * * DATE OF EXAM: Jan 22 2025 11:13AM [id number] - XR CHEST 2V FRONTAL/LAT / PROCEDURE REASON: Acute cough * * * * Physician Interpretation * * * * EXAMINATION: CHEST RADIOGRAPH (2 VIEW FRONTAL & LATERAL) CLINICAL HISTORY: Acute cough MQ: XC2_6 EXAM DATE/TIME: 01/22/2025 11:13 AM COMPARISON: Chest x-ray dated 04/16/2022 RESULT: Lines, tubes, and devices: None. Lungs and pleura: Stable trace linear retrocardiac atelectasis/scarring. No consolidation. No lung mass. No pleural effusion. No pneumothorax. Cardiomediastinal silhouette: Stable cardiomediastinal silhouette with valvular prosthesis. Bones and soft tissues: Degenerative changes are present within the thoracic spine. Remote left lower anterolateral rib fracture deformities. DIVISION OF RADIOLOGY Provider, [facility] - 01/22/2025 * * *Final Report* * * DATE OF EXAM: Jan 22 2025 11:13AM WOX [id number] - XR CHEST 2V FRONTAL/LAT / PROCEDURE REASON: Acute cough * * * * Physician Interpretation * * * * EXAMINATION: CHEST RADIOGRAPH (2 VIEW FRONTAL & LATERAL) CLINICAL HISTORY: Acute cough MQ: XC2_6 EXAM DATE/TIME: 01/22/2025 11:13 AM COMPARISON: Chest x-ray dated 04/16/2022 RESULT: Lines, tubes, and devices: None. Lungs and pleura: Stable trace linear retrocardiac atelectasis/scarring. No consolidation. No lung mass. No pleural effusion. No pneumothorax. Cardiomediastinal silhouette: Stable cardiomediastinal silhouette with valvular prosthesis. Bones and soft tissues: Degenerative changes are present within the thoracic spine. Remote left lower anterolateral rib fracture deformities. IMPRESSION IMPRESSION: No acute radiographic abnormality. [facility] Transcribe Date/Time: Jan 22 2025 11:20A Dictated by : OMAR MAGANA MD This examination was interpreted and the report reviewed and electronically signed by: OMAR MAGANA MD on Jan 22 2025 11:21AM EST [facility] Radiology Study observation (narrative) [facility] XR Chest PA and LateralOrder ed By: Cc Provider on 01-22-2025 [facility] CNOVon 01-07-2025 CNOV Office Visit (UROLWS ) MAXIMO NIXON ([id number]) 1940 M Date Time Provider Department 01/07/25 1:30 PM CORNELIUS DASILVA During your visit today, we recorded the following information about you: Pulse Blood pressure Weight Height 62/minute 132/79 93.4 kg 1.88 m Cornelius Dasilva APRN.CHILD CARE GROUP LEADER, DNP 01/07/2025 2:02 PM Signed COUNT INCLUDES THE [facility] MALE PATIENT - HISTORY AND PHYSICAL EXAMINATION PATIENT: Maximo Nixon PCP: Diego Huffman MD CHIEF COMPLAINT: BPH/LUTS/OAB follow up HISTORY OF PRESENT ILLNESS: 84 year old year old male with BPH/LUTS/OAB follow up present at appt Past Med Hx: BHP, OAB, GERD, HTN, AFIB, Rhinitis Previously seen by Paul Chatterjee in Jul 2023. Reported increased frequency and Nocturia, previous Green Light PVP with Jose A. Dr. Segovia consult 2015 and recommended try OAB medication, discussed trial of Myrbetriq and increase water intake for 3 months if still having urgency recommend new UDS and Cystoscopy and possible Botox Injection. Tried Ditropan XL (10, 15 mg)- pt did not notice an improvement in his symptoms Started on Mybetriq by Wood Chatterjee and told to follow up in 3 months. Did not follow up in 3 months. States that Myrbetriq was expensive and didn't help him. Didn't go back because test that Paul was talking about doing he had done before and wasn't helpful. Dr. Naranjo discussed about consideration for Botox and/or InterStim per his last note in 2014. S/p greenlight laser 02/26/[address] Naranjo. Since his greenlight procedure he has had intractable urgency/frequency. Started on Flomax at last appt. Flomax was causing him to leak urine at times. Has been on Oxybutynin in 2016. Unsure why he stopped medication. PRESENTING HISTORY: Hematuria: none Obstructive voiding symptoms: weak stream. Irritative voiding symptoms: frequency and urgency Urinary retention: no Urinary incontinence: no Urinary tract infection: no Patient Entered Questionnaires: INTERNATIONAL PROSTATE SYMPTOM SCORE (I-PSS) PREVIOUS TOTAL IPSS SCORE: 20 QOL = 6 1. Incomplete emptying 0 2. Frequency 5 3. Intermittency 2 4. Urgency 5 5. Weak stream 5 6. Straining 0 7. Nocturia 3 TOTAL IPSS SCORE 20 QOL = 6 HISTORY: PAST MEDICAL HISTORY Diagnosis Date Acute gastritis without mention of hemorrhage Arrhythmia BPH associated with nocturia Esophagitis, unspecified Essential hypertension, benign 05/25/2012 Gastroesophageal reflux disease, unspecified whether esophagitis present GERD (gastroesophageal reflux disease) OAB (overactive bladder) Paroxysmal A-fib (HCC) transitory 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, 2012 PND (post-nasal drip) S/P MVR (mitral valve repair) Vasomotor rhinitis PAST SURGICAL HISTORY Procedure Laterality Date COLONOSCOPY FLX DX W/COLLJ SPEC WHEN PFRMD 05/06/11 EGD TRANSORAL BIOPSY SINGLE/MULTIPLE 05/06/11 ESOPHAGOGASTRODUODENOSCOPY TRANSORAL DIAGNOSTIC 11/28/2009 EGD ESOPHAGOGASTRODUODENOSCOPY TRANSORAL DIAGNOSTIC 02/13/2020 EGD PAST SURGICAL HISTORY OF 2007 bilateral TKA PAST SURGICAL HISTORY OF Right 2003 inguinal hernia PAST SURGICAL HISTORY OF 10/2013 heart valve repair [facility] MAIN RPR 1ST INGUN HRNA AGE 5 YRS/> REDUCIBLE 08/25/2020 Hernia repair, inguinal XCAPSL CTRC RMVL INSJ IO LENS PROSTH W/O ECP Right 06/04/2015 Cataract Extraction with PC IOL XCAPSL CTRC RMVL INSJ IO LENS PROSTH W/O ECP 07/02/2015 Cataract Extraction with PC IOL OS Social History Tobacco Use Smoking status: Never Smokeless tobacco: Never Vaping Use Vaping status: Never Used Substance Use Topics Alcohol use: No Drug use: Never FAMILY HISTORY Problem Relation Age of Onset Alzheimer's Disease Father other (Other) Daughter brain tumor Allergies Daughter None Son No Ocular Disease No Family History MEDICATIONS: Current Outpatient Medications Medication Sig amLODIPine (NORVASC) 2.5 mg tablet Take 1 tablet by mouth once daily. nutritional supplement/fiber (JUICE PLUS FIBRE ORAL) Take by mouth. Takes eight daily MULTI-VITAMIN ORAL Take by mouth once daily. aspirin, enteric coated (ASPIRIN, ENTERIC COATED) 81 mg EC tablet Take 81 mg by mouth once daily. ascorbic acid (VITAMIN C) 500 mg tablet Take 2 tablets by mouth once daily. trospium (SANCTURA) 20 mg tablet Take 1 tablet by mouth once daily. Take for overactive bladder No current facility-administered medications for this visit. LABS: Latest Ref Rng 10/08/2024 GLUCOSE UA (POCT) Negative mg/dL Negative BILIRUBIN UA (POCT) Negative Negative KETONE UA (POCT) Negative mg/dL Negative SPECIFIC GRAVITY UA (POCT) 1.005 - 1.030 >=1.030 HEMOGLOBIN/BLOOD UA (POCT) Negative Negative PH UA (POCT) 4.5 - 8.0 5.5 PROTEIN UA (POCT) Negative mg/dL Negative UROBILINOGEN UA (POCT) Normal E.U./dL 1.0 NITRITE UA (POCT) Negative Negative LEUKOCYTES UA (POCT) Neg (more content not included)... Normal [facility] CNOVon 12-27-2024 CNOV Office Visit (CARDMM ) MAXIMO NIXON ([id number]) 1940 M Date Time Provider Department 12/27/24 2:20 PM LYNETTE PATEL During your visit today, we recorded the following information about you: Pulse Blood pressure Weight Height 62/minute 142/74 92.3 kg 1.88 m Lynette Patel MD 12/27/2024 3:02 PM Signed [facility] SECTION OF REGIONAL CARDIOLOGY OUTPATIENT VISIT DATE 12/27/2024 OUTPATIENT VISIT TYPE NEW PRIMARY CARE PHYSICIAN: Diego Huffman [address] [place] [address] Patient is being seen at the request of Self for follow up HISTORY OF PRESENT ILLNESS: Mr. Nixon is a 84 year old male, hx of MV repair with annuloplasty ring 35mm on 10/30/2013 with normal coronaries per pre MVR cardiac cath report 08/24/2013, post afib maintaining sinus rhythm, Hypertension, GERD presents for f/u. Previously seen by Dr. Cordero 05/11/22. He denies chest pain, SOB, palpitations, orthopnea, PND, leg swelling, lightheadedness, syncope. He reports tinnitus in his right ear as well as thick mucus which he has to expectorate. Not improved by medications such as mucinex TTE 05/11/2022: EF 56%, 1.2/1.2, RVSP 31, mildly dil LA, s/p Melgar Mitral valve annuloplasty ring size #35 with trace (trace - 1+) MR. Peak/ mean mitral valve gradients 9/3 mmHg. PHT 119, trace TR, 1-2+AR, 1+ NC, asc Ao 3.6 PAST MEDICAL HISTORY Diagnosis Date Acute gastritis without mention of hemorrhage Arrhythmia BPH associated with nocturia Esophagitis, unspecified Essential hypertension, benign 05/25/2012 Gastroesophageal reflux disease, unspecified whether esophagitis present GERD (gastroesophageal reflux disease) OAB (overactive bladder) Paroxysmal A-fib (HCC) transitory 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, 2012 PND (post-nasal drip) S/P MVR (mitral valve repair) Vasomotor rhinitis PAST SURGICAL HISTORY Procedure Laterality Date COLONOSCOPY FLX DX W/COLLJ SPEC WHEN PFRMD 05/06/11 EGD TRANSORAL BIOPSY SINGLE/MULTIPLE 05/06/11 ESOPHAGOGASTRODUODENOSCOPY TRANSORAL DIAGNOSTIC 11/28/2009 EGD ESOPHAGOGASTRODUODENOSCOPY TRANSORAL DIAGNOSTIC 02/13/2020 EGD PAST SURGICAL HISTORY OF 2006 bilateral TKA PAST SURGICAL HISTORY OF Right 2003 inguinal hernia PAST SURGICAL HISTORY OF 10/2013 heart valve repair [facility] RPR 1ST INGUN HRNA AGE 5 YRS/> REDUCIBLE 08/25/2020 Hernia repair, inguinal XCAPSL CTRC RMVL INSJ IO LENS PROSTH W/O ECP Right 06/04/2015 Cataract Extraction with PC IOL XCAPSL CTRC RMVL INSJ IO LENS PROSTH W/O ECP 07/02/2015 Cataract Extraction with PC IOL OS Social History Tobacco Use Smoking status: Never Smokeless tobacco: Never Vaping Use Vaping status: Never Used Substance Use Topics Alcohol use: No Drug use: Never FAMILY HISTORY Problem Relation Age of Onset Alzheimer's Disease Father other (Other) Daughter brain tumor Allergies Daughter None Son No Ocular Disease No Family History ALLERGIES Allergen Reactions Lisinopril Cough CURRENT MEDICATIONS: tamsulosin (FLOMAX) 0.4 mg Take 1 capsule by mouth daily at bedtime. (Patient not taking: Reported on 11/06/2024) amLODIPine (NORVASC) 2.5 mg tablet Take 1 tablet by mouth once daily. nutritional supplement/fiber (JUICE PLUS FIBRE ORAL) Take by mouth. Takes eight daily MULTI-VITAMIN ORAL Take by mouth once daily. aspirin, enteric coated (ASPIRIN, ENTERIC COATED) 81 mg EC tablet Take 81 mg by mouth once daily. ascorbic acid (VITAMIN C) 500 mg tablet Take 2 tablets by mouth once daily. PHYSICAL EXAMINATION: BP 142/74 Pulse 62 Ht 188 cm (6' 2) Wt 92.3 kg (203 lb 7.8 oz) SpO2 96% BMI 26.13 kg/m? General: Appears comfortable in no apparent cardiopulmonary distress Neck: No JVD, no bruits CVS: S1, S2, No m/r/g Chest: CTAB Abd: Soft, nontender, no masses, BS present Ext: No pedal edema, pedal pulses 2+ bilaterally Neuro: No focal neurological deficits ASSESSMENT/PLAN: 1. S/P MVR (mitral valve repair) - ICD9: V45.89, ICD10: Z98.890 (primary diagnosis) TTE 2021 showed s/p Melgar Mitral valve annuloplasty ring size #35 with trace (trace - 1+) MR. Peak/ mean mitral valve gradients 9/3 mmHg. PHT 119 - Repeat TTE to reassess MV gradients, PHT, etc. Mychart w results - RTC in 6 months 2. Aortic valve insufficiency, etiology of cardiac valve disease unspecified - ICD9: 424.1, ICD10: I35.1 1-2+ AR per TTE 2021 - Repeat TTE to reassess severity. Call with echo 3. Tinnitus - Referral to ENT. He also reports thick mucus that he has to expectorate not alleviated by mucinex. MRI brain showed minimal mucosal thickening in the left maxillary sinus. Partial opacification of the left mastoid air cells, likely inflammatory. Lynette Patel MD, [facility] Allergies As of Date: 12/27/2024 Noted Allergy Reaction LISINOPRIL 04/09/2013 3 - Coug (more content not included)... Normal [facility] MR Brain WO and W contrast I Von 12-19-2024 IMPRESSION: Small extra-axial lesion overlying the left frontal lobe, most likely a meningioma without significant mass effect. Chronic changes as described. Normal appearance of the bilateral seventh/8th nerve complexes and inner ear complexes, without abnormal enhancement. 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 MQ: MRBWOW_2 Contrast: 9 mL Elucirem IV COMPARISON: CT brain 02/02/2015 RESULT: Acute Change: There is no evidence of restricted diffusion to suggest an acute infarct. Hemorrhage: There is a focus susceptibility in the left cerebral hemisphere without abnormal signal in diameter sequence, which may be due to remote hemorrhage/microhemorrhage, seen on the B0 and T2 images. No SWI images were obtained. Mass Lesion/ Mass Effect: There is a small extra axial enhancing lesion overlying the left middle cerebral fissure, measuring up to 1.2 cm, likely small meningioma without significant mass effect. Chronic Change: Scattered patchy areas of increased T2 and FLAIR signal are present in the supratentorial white matter which is a nonspecific finding but likely represents mild chronic microvascular ischemia. Specifically, the brainstem is normal in appearance. There is no evidence of a mass in the region of either IAC or elsewhere in the posterior fossa. No abnormal enhancement is noted in the basilar cisterns, along the course of the 7/8 cranial nerve complexes, or in the region of the inner ear complexes. No abnormal parenchymal or leptomeningeal enhancement is noted following gadolinium administration. Inner ear structures appear to be within normal limits on the high resolution axial T2 SPACE sequence. Parenchyma: There is moderate generalized parenchymal volume loss. 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 Ventricles: Ventriculomegaly corresponds to the degree of parenchymal volume loss. Skull Base: Hypothalamic and pituitary region are grossly normal. Craniocervical junction is normal. No significant marrow replacement process. Vasculature: Major intracranial arterial structures, and dural venous sinuses show typical flow void, suggesting patency by spin echo criteria. Other: Minimal mucosal thickening in the left maxillary sinus. Partial opacification of the left mastoid air cells, likely inflammatory. The orbits and extracranial soft tissues are unremarkable. 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 MQ: MRBWOW_2 Contrast: 9 mL Elucirem IV COMPARISON: CT brain 02/02/2015 RESULT: Acute Change: There is no evidence of restricted diffusion to suggest an acute infarct. Hemorrhage: There is a focus susceptibility in the left cerebral hemisphere without abnormal signal in diameter sequence, which may be due to remote hemorrhage/microhemorrhage, seen on the B0 and T2 images. No SWI images were obtained. Mass Lesion/ Mass Effect: There is a small extra axial enhancing lesion overlying the left middle cerebral fissure, measuring up to 1.2 cm, likely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 Performed By: #### L 500.2500, L100.0100, L501.4020 #### [facility] [address] [place], [address] Eosinophils/100 WBC (Bld) 3.0 % Normal 0-5 [facility] Comment on above: Performed By: #### L 500.2500, L100.0100, L501.4020 #### [facility] [address] [place], [address] Erythrocyte distribution width (RBC) [Ratio] 13.2 % Normal 11.6-14.6 [facility] Comment on above: Performed By: #### L 500.2500, L100.0100, L501.4020 #### [facility] [address] [place], [address] Hematocrit (Bld) [Volume fraction] 46.1 % Normal 40-54 [facility] Comment on above: Performed By: #### L 500.2500, L100.0100, L501.4020 #### [facility] [address] [place], [address] Hemoglobin (Bld) [Mass/Vol] 15.6 g/dL Normal 13.0-16.5 [facility] Comment on above: Performed By: #### L 500.2500, L100.0100, L501.4020 #### [facility] [address] [place], [address] IG% 0.600 Normal 0.0-0.9 [facility] Comment on above: Result Comment: IG% - Immature Granulocytes (promyelocytes, myelocytes and metamyelocytes) > 1% indicates that a LEFT SHIFT is Present. Performed By: #### L 500.2500, L100.0100, L501.4020 #### [facility] [address] [place], [address] Lymphocytes/100 WBC (Bld) 26.8 % Normal 19-41 [facility] Comment on above: Performed By: #### L 500.2500, L100.0100, L501.4020 #### [facility] [address] [place], [address] MCH (RBC) [Entitic mass] 31.9 pg Normal 27.0-32.0 [facility] Comment on above: Performed By: #### L 500.2500, L100.0100, L501.4020 #### [facility] [address] [place], [address] MCHC (RBC) [Mass/Vol] 33.8 g/dL Normal 32-36 [facility] Comment on above: Performed By: #### L 500.2500, L100.0100, L501.4020 #### [facility] [address] [place], [address] MCV (RBC) [Entitic vol] 94.3 fL High 80-94 [facility] Comment on above: Performed By: #### L 500.2500, L100.0100, L501.4020 #### [facility] [address] [place], [address] Monocytes/100 WBC (Bld) 12.8 % High 0-10 [facility] Comment on above: Performed By: #### L 500.2500, L100.0100, L501.4020 #### [facility] [address] [place], [address] Neutrophils/100 WBC (Bld) 55.9 % Normal 47-70 [facility] Comment on above: Performed By: #### L 500.2500, L100.0100, L501.4020 #### [facility] [address] [place], [address] Nucleated RBC (Bld) [#/Vol] 0 10*3/uL Normal 0-5 [facility] Comment on above: Performed By: #### L 500.2500, L100.0100, L501.4020 #### [facility] [address] [place], [address] Platelet mean volume (Bld) [Entitic vol] 9.6 fL Normal 6.2-12.0 [facility] Comment on above: Performed By: #### L 500.2500, L100.0100, L501.4020 #### [facility] [address] [place], [address] Platelets (Bld) [#/Vol] 186 10*3/uL Normal 150-450 [facility] Comment on above: Performed By: #### L 500.2500, L100.0100, L501.4020 #### [facility] [address] [place], [address] RBC (Bld) [#/Vol] 4.89 10*6/uL Normal 4.6-6.2 [facility] Comment on above: Performed By: #### L 500.2500, L100.0100, L501.4020 #### [facility] [address] [place], [address] RDW SD 45.9 fl High 35.1-43.9 [facility] Comment on above: Performed By: #### L 500.2500, L100.0100, L501.4020 #### [facility] [address] [place], [address] WBC (Bld) [#/Vol] 5.4 10*3/uL Normal 4.4-11.0 [facility] Comment on above: Performed By: #### L 500.2500, L100.0100, L501.4020 #### [facility] [address] [place], [address] CNOVon 08-27-2024 CNOV Office Visit (UCWSTR ) MAXIMO NIXON ([id number]) 1940 M Date Time Provider Department 08/27/24 4:45 PM [facility] During your visit today, we recorded the following information about you: Leonarda Dutta APRN.CNP 08/27/2024 5:11 PM Signed Called to triage patient by PSS staff. 84 year old male with PMH HTN, afib, GERD presents for complaints of dizziness and lightheaded Acute onset of symptoms has been in the past 24 hours He is experiencing floaters. Given concerns for intracranial process and need for higher level of care than express, Has been referred to ED Declines EMS Allergies As of Date: 08/27/2024 Noted Allergy Reaction LISINOPRIL 04/09/2013 3 - Cough Date Reviewed: 07/31/2024 Reviewed by: Katty Hines LPN - Fully Assessed Primary Visit Diagnosis:Dizziness [R42] Other Visit Diagnosis:Lightheadedness [R42] Prescriptions as of 08/27/2024 - amLODIPine (NORVASC) 2.5 mg tablet Take 1 tablet by mouth once daily. - nystatin (MYCOSTATIN) cream Apply 1 application to affected area two times a day. - nutritional supplement/fiber (JUICE PLUS FIBRE ORAL) Take by mouth. - Ipratropium [place] (ATROVENT) 21 mcg (0.03 %) nasal spray Use 2 Sprays in the nose twice daily. - loratadine (CLARITIN) 10 mg tablet Take 1 tablet by mouth once daily. - MULTI-VITAMIN ORAL Take by mouth. - aspirin, enteric coated (ASPIRIN, ENTERIC COATED) 81 mg EC tablet Take 81 mg by mouth once daily. - ascorbic acid (VITAMIN C) 500 mg tablet Take 2 tablets by mouth once daily. Meds Comments as of 10/23/2013: mvi ld 10/19 Problem List As Of Date 08/27/2024 Noted Resolved Perennial non-allergic rhinitis [J31.0] 04/08/2011 Unspecified hyperplasia of prostate with urinar*04/08/2011 09/01/2021 Special screening for malignant neoplasms, colo*04/16/2011 09/01/2021 Acute gastritis without mention of hemorrhage [*05/06/2011 12/26/2014 Esophagitis, unspecified [K20.90] 05/06/2011 04/28/2017 Supraspinatus tendonitis [M75.90] 06/28/2011 04/28/2017 Essential hypertension, benign [I10] 05/25/2012 Difficulty voiding [R39.198] 12/21/2012 11/03/2013 Urgency of urination [R39.15] 12/21/2012 Nocturia [R35.1] 12/21/2012 09/07/2023 Mitral valve disease, 3-4+ MR by echo 08/10 [I05*08/13/2013 12/04/2021 Pre-op testing [Z01.818] 10/23/2013 11/03/2013 Mechanically assisted ventilation [Z99.11] 10/30/2013 10/31/2013 Acute pain [R52] 10/30/2013 12/26/2014 Cardiac insufficiency following cardiac surgery*10/30/2013 11/01/2013 Atelectasis/pleural effusion/FVO. [J98.11] 10/31/2013 12/26/2014 Fluid overload [E87.70] 10/31/2013 10/31/2013 SUMMARY [V999.95] 10/31/2013 BPH (benign prostatic hyperplasia) [N40.0] 11/01/2013 Post-op Junctional Rhyhtm with paroxysmal A-fib*11/01/2013 04/28/2017 Stress hyperglycemia [R73.9] 11/01/2013 11/03/2013 S/P MVR (mitral valve repair) [Z98.890] 12/13/2013 GERD (gastroesophageal reflux disease) [K21.9] 01/20/2015 Memory loss [R41.3] 02/05/2015 Other and combined forms of senile cataract [H2*03/31/2015 07/08/2015 Hypermetropia [H52.00] 03/31/2015 Regular astigmatism [H52.229] 03/31/2015 11/10/2021 Presbyopia [H52.4] 03/31/2015 11/10/2021 Nonexudative age-related macular degeneration, *03/31/2015 Astigmatism - Both Eyes [H52.209] 05/19/2015 Vitreous floaters of both eyes [H43.393] 05/19/2015 S/P cataract surgery - Right Eye [Z98.49] 06/05/2015 11/10/2021 Combined form of senile cataract of left eye [H*06/12/2015 07/08/2015 Regular astigmatism of left eye [H52.222] 06/12/2015 11/10/2021 Status post cataract surgery [Z98.49] 07/08/2015 11/10/2021 Pseudophakia [Z96.1] 07/08/2015 Postoperative atrial fibrillation (HCC) [I97.89* Vasomotor rhinitis [J30.0] 05/29/2018 Cataract, secondary obscuring vision, right [H2*11/17/2021 Bradycardia following surgery [I97.89] 12/04/2021 Meibomian gland dysfunction (MGD) of upper and *02/15/2022 Punctate keratitis, 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] 02/15/2022 After cataract not obscuring vision, left [H26.*09/09/2022 Encounter Status:Closed by LEONARDA DUTTA on 08/27/24 Normal [facility] Emergency Department Summary on 08-27-2024 Emergency Department Summary [facility] Medical Records Department [address] [place] [address] Emergency Department Summary 08/27/24 MR#: [id number] Acct: [id number] Name: MAXIMO NIXON Rep #: [id number] : 1940 84 From: Juan Luis Hughes DO PCP: Dr. Diego Huffman MD Status:DEP ER Location: ED HPI History of Present Illness Chief Complaint: Dizziness Informant: patient Onset/Context/Timing Onset: Weeks (1) Context: Gradual Onset Timing: Intermittent Quality: Lightheaded Location: Generalized Worsened by: Standing and moving Relieved by: Rest Narrative Narrative: Patient presents with lightheadedness and dizziness for the past week. Patient states that whenever he gets up and moves he becomes lightheaded. Patient states that sometimes he gets unsteady on his feet. Patient states his symptoms became worse yesterday. Patient noted some spots in his vision that have resolved. Patient admits to some urinary frequency but denies any dysuria or hematuria. Patient denies any fevers or chills. Patient denies any headaches. Patient states she has chronic tinnitus but denies any changes in his tinnitus. Patient denies any changes in his hearing. [facility] Medical History (Updated 08/27/24 @ 22:[address] Juan Luis Hughes DO) HTN (hypertension) Allergy/AdvReac Type Severity Reaction Status Date / Time No Known Allergies Allergy Verified 08/27/24 17:01 Surgical History (Updated 08/27/24 @ 18:[address] Juan Luis Hughes DO) Hx of atrial septal defect repair Hx of total knee replacement Social History Smoking Status: Never smoker ROS ROS ED Constitutional Constitutional ED: Denies chills or fever(s) Eyes Eyes: Reports change in vision; Denies blurry vision or diplopia ENT ENT ED: Denies rhinorrhea or sore throat Cardiovascular Cardiovascular: Denies chest pain or palpitations Respiratory/Chest Respiratory/Chest: Denies cough or dyspnea Gastrointestinal Gastrointestinal: Denies nausea or vomiting Genitourinary Genitourinary ED: Reports urinary frequency; Denies dysuria or hematuria Musculoskeletal Musculoskeletal: Denies back pain or neck pain Integumentary Denies abscess or rash Neurologic Neurologic: Denies headache(s) or weakness Allergic/Immunologic Allergic/Immunologic ED: Denies mouth swelling or urticaria EXAM Physical Exam Const Vital Signs: 08/27/24 17:00 08/27/24 18:35 08/27/24 19:00 Temperature 97.6 F L Temperature Source Oral Pulse Rate 66 59 L Pulse Rate [Lying] 58 L Pulse Rate [Sitting (for 1 minute prior to obtaining)] 64 Pulse Rate [Standing (for 1 minute prior to obtaining)] 63 Respiratory Rate 18 18 Blood Pressure 179/73 H 152/103 H Blood Pressure [Lying] 144/72 H Blood Pressure [Sitting (for 1 minute prior to obtaining)] 153/75 H Blood Pressure [Standing (for 1 minute prior to obtaining)] 146/84 H Blood Pressure Mean 108 119 Blood Pressure Mean [Lying] 96 Blood Pressure Mean [Sitting (for 1 minute prior to obtaining)] 101 Blood Pressure Mean [Standing (for 1 minute prior to obtaining)] 104 Pulse Ox 97 94 Oxygen Delivery Method Room Air Room Air 08/27/24 21:00 Temperature Temperature Source Pulse Rate 53 L Pulse Rate [Lying] Pulse Rate [Sitting (for 1 minute prior to obtaining)] Pulse Rate [Standing (for 1 minute prior to obtaining)] Respiratory Rate 18 Blood Pressure 158/82 H Blood Pressure [Lying] Blood Pressure [Sitting (for 1 minute prior to obtaining)] Blood Pressure [Standing (for 1 minute prior to obtaining)] Blood Pressure Mean 107 Blood Pressure Mean [Lying] Blood Pressure Mean [Sitting (for 1 minute prior to obtaining)] Blood Pressure Mean [Standing (for 1 minute prior to obtaining)] Pulse Ox 93 Oxygen Delivery Method Room Air Positive well nourished and well developed General Appearance ED: well developed and NAD HEENT Reports moist mucous membranes Neck supple and no JVD Resp normal respiratory effort and clear to auscultation bilaterally Cardio regular rate and regular rhythm GI non-tender and non-distended Palpation: soft Extremity normal to inspection General Extremety ED: Negative for edema or tenderness General Extremity: Negative for edema Neuro oriented x3, CN's II-XII intact bilaterally and no sensory deficits noted Sensorium / Orientation: alert Motor Exam: strength 5/5 throughout Psych mental status grossly normal MDM MDM MDM Narrative Medical decision making narrative: Differential diagnosis includes electrolyte abnormality, dehydration, vertigo, labyrinthitis, orthostatic hypotension, cardiac dysrhythmia, and cardiac ischemia. EKG will be obtained to assess for cardiac dysrhythmia and cardiac ischemia. CBC will (more content not included)... Normal [facility] L501.4020on 08-27-2024 TROPONIN-I HS 11 pg/mL Normal 3.0-78.0 [facility] Comment on above: Order Comment: 'TROP ' Serial specimen #1, #2 or #3: 1 Result Comment: Roly parsons Note: New Test Units and Gender Specific Reference Ranges. For more information see Policy Stat Procedure [place] High Sensitivity Troponin (TNIH) and attachments. Performed By: #### L 500.2500, L100.0100, L501.4020 #### [facility] [address] [place], [address] Urinalysis, Completeon 08-27 BACTERIA 1+ /hpf Normal None Seen [facility] Comment on above: Order Comment: CLEAN CATCH Performed By: #### L 400.0001 #### [facility] [address] [place], [address] WBC 5-10 SEEN Normal 0-5 [facility] Comment on above: Order Comment: CLEAN CATCH Performed By: #### L 400.0001 #### [facility] [address] [place], [address] EPI,SQUAMOUS 0 SEEN Normal 0-[address] [place] [address] Comment on above: Order Comment: CLEAN CATCH Performed By: #### L 400.0001 #### [facility] [address] [place], [address] Mucus Ql (Urine sed) 0 SEEN Normal [facility] Comment on above: Order Comment: CLEAN CATCH Performed By: #### L 400.0001 #### [facility] [address] [place], [address] RBC 0 SEEN Normal 0-5 [facility] Comment on above: Order Comment: CLEAN CATCH Performed By: #### L 400.0001 #### [facility] [place], [address] CNOVon 07-31-2024 CNOV Office Visit (FAMPWS ) MAXIMO NIXON ([id number]) 1940 M Date Time Provider Department 07/31/24 2:20 PM [facility] During your visit today, we recorded the following information about you: Fidencio Renee PA-C 07/31/2024 3:23 PM Signed Flu shot ordered. Fidencio Renee PA-C 07/31/2024 Allergies As of Date: 07/31/2024 Noted Allergy Reaction LISINOPRIL 04/09/2013 3 - Cough Date Reviewed: 07/31/2024 Reviewed by: Katty Hines LPN - Fully Assessed Reason for Visit: Immunizations [194] Cmt: Flu vaccination Nurse Visit [792] Cmt: high dose flu vaccine Primary Visit Diagnosis:Need for influenza vaccination [Z23] Order(s):INFLUENZA VACCINE, PRSV FREE, AGE 65+ YR, HIGH DOSE, TRIVALENT (FLUZONE HIGH-DOSE) [[id number]] Order #: [id number] Prescriptions as of 07/31/2024 - amLODIPine (NORVASC) 2.5 mg tablet Take 1 tablet by mouth once daily. - nystatin (MYCOSTATIN) cream Apply 1 application to affected area two times a day. - nutritional supplement/fiber (JUICE PLUS FIBRE ORAL) Take by mouth. - Ipratropium [place] (ATROVENT) 21 mcg (0.03 %) nasal spray Use 2 Sprays in the nose twice daily. - loratadine (CLARITIN) 10 mg tablet Take 1 tablet by mouth once daily. - MULTI-VITAMIN ORAL Take by mouth. - aspirin, enteric coated (ASPIRIN, ENTERIC COATED) 81 mg EC tablet Take 81 mg by mouth once daily. - ascorbic acid (VITAMIN C) 500 mg tablet Take 2 tablets by mouth once daily. Meds Comments as of 10/23/2013: mvi ld 10/19 Problem List As Of Date 07/31/2024 Noted Resolved Perennial non-allergic rhinitis [J31.0] 04/08/2011 Unspecified hyperplasia of prostate with urinar*04/08/2011 09/01/2021 Special screening for malignant neoplasms, colo*04/16/2011 09/01/2021 Acute gastritis without mention of hemorrhage [*05/06/2011 12/26/2014 Esophagitis, unspecified [K20.90] 05/06/2011 04/28/2017 Supraspinatus tendonitis [M75.90] 06/28/2011 04/28/2017 Essential hypertension, benign [I10] 05/25/2012 Difficulty voiding [R39.198] 12/21/2012 11/03/2013 Urgency of urination [R39.15] 12/21/2012 Nocturia [R35.1] 12/21/2012 09/07/2023 Mitral valve disease, 3-4+ MR by echo 08/10 [I05*08/13/2013 12/04/2021 Pre-op testing [Z01.818] 10/23/2013 11/03/2013 Mechanically assisted ventilation [Z99.11] 10/30/2013 10/31/2013 Acute pain [R52] 10/30/2013 12/26/2014 Cardiac insufficiency following cardiac surgery*10/30/2013 11/01/2013 Atelectasis/pleural effusion/FVO. [J98.11] 10/31/2013 12/26/2014 Fluid overload [E87.70] 10/31/2013 10/31/2013 SUMMARY [V999.95] 10/31/2013 BPH (benign prostatic hyperplasia) [N40.0] 11/01/2013 Post-op Junctional Rhyhtm with paroxysmal A-fib*11/01/2013 04/28/2017 Stress hyperglycemia [R73.9] 11/01/2013 11/03/2013 S/P MVR (mitral valve repair) [Z98.890] 12/13/2013 GERD (gastroesophageal reflux disease) [K21.9] 01/20/2015 Memory loss [R41.3] 02/05/2015 Other and combined forms of senile cataract [H2*03/31/2015 07/08/2015 Hypermetropia [H52.00] 03/31/2015 Regular astigmatism [H52.229] 03/31/2015 11/10/2021 Presbyopia [H52.4] 03/31/2015 11/10/2021 Nonexudative age-related macular degeneration, *03/31/2015 Astigmatism - Both Eyes [H52.209] 05/19/2015 Vitreous floaters of both eyes [H43.393] 05/19/2015 S/P cataract surgery - Right Eye [Z98.49] 06/05/2015 11/10/2021 Combined form of senile cataract of left eye [H*06/12/2015 07/08/2015 Regular astigmatism of left eye [H52.222] 06/12/2015 11/10/2021 Status post cataract surgery [Z98.49] 07/08/2015 11/10/2021 Pseudophakia [Z96.1] 07/08/2015 Postoperative atrial fibrillation (HCC) [I97.89* Vasomotor rhinitis [J30.0] 05/29/2018 Cataract, secondary obscuring vision, right [H2*11/17/2021 Bradycardia following surgery [I97.89] 12/04/2021 Meibomian gland dysfunction (MGD) of upper and *02/15/2022 Punctate keratitis, 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] 02/15/2022 After cataract not obscuring vision, left [H26.*09/09/2022 Encounter Status:Closed by KATTY HINES on 07/31/24 Normal [facility] UA DIP, URINE (POC)on 2022 BILIRUBIN UA (POCT) Negative Negative [facility] [facility] CLARITY UA (POCT) Clear [facility] COLOR UA (POCT) Dark yellow [facility] GLUCOSE UA (POCT) Negative Negative mg/dL [facility] Hemoglobin Ql (U) Negative Negative [facility] KETONE UA (POCT) Negative Negative mg/dL [facility] LEUKOCYTES UA (POCT) Negative Negative [facility] NITRITE UA (POCT) Negative Negative [facility] PH UA (POCT) 5.5 4.5 - 8.0 [facility] Protein Ql (U) Negative Negative mg/dL [facility] SPECIFIC GRAVITY UA (POCT) 1.025 1.005 - 1.030 [facility] UROBILINOGEN UA (POCT) 1.0 E.U./dL Normal E.U./dL [facility] UA DIP, URINE (POC)on 2022 BILIRUBIN UA (POCT) Negative Negative [facility] CLARITY UA (POCT) Clear [facility] COLOR UA (POCT) Dark yellow [facility] GLUCOSE UA (POCT) Negative Negative mg/dL [facility] HEMOGLOBIN/BLOOD UA (POCT) Negative Negative [facility] KETONE UA (POCT) Negative Negative mg/dL [facility] LEUKOCYTES UA (POCT) Negative Negative [facility] NITRITE UA (POCT) Negative Negative [facility] PH UA (POCT) 5.5 4.5 - 8.0 [facility] Protein Ql (U) Negative Negative mg/dL [facility] SPECIFIC GRAVITY UA (POCT) >=1.030 1.005 - 1.030 [facility] UROBILINOGEN UA (POCT) 0.2 E.U./dL Normal E.U./dL [facility] XR Knee - right 4 Viewson IMPRESSION: No acute osseous abnormality Sand Hauler: MALLY Transcribe Date/Time: Mar 03 2023 1:03P Dictated by : YOGESH ALBRIGHT MD This examination was interpreted and the report reviewed and electronically signed by: YOGESH ALBRIGHT MD on Mar 03 2023 1:08PM [facility] DIVISION OF RADIOLOGY * * *Final Report* * * DATE OF EXAM: Mar 02 2023 10:21AM WOX 5203 - XR KNEE 4V AP/PA BOTH+LAT/SEAMUS RT / PROCEDURE REASON: Acute pain of right knee * * * * Physician Interpretation * * * * EXAMINATION: XR KNEE 4V AP/PA BOTH+LAT/SEAMUS RT CLINICAL HISTORY: Right knee pain Technique: XR KNEE 4V AP/PA BOTH+LAT/SEAMUS RT -- RIGHT with 4 views on 4 images Comparison: X-ray right knee 07/07/2022 RESULT: No acute fracture or dislocation. Satisfactory position of a right knee prosthesis with no radiographic evidence of loosening. Right superior patellar enthesophytes. Satisfactory position of a left knee prosthesis. DIVISION OF RADIOLOGY Provider, [facility] Addison Petty - 03/03/2023 * * *Final Report* * * DATE OF EXAM: Mar 02 2023 10:21AM WOX 5203 - XR KNEE 4V AP/PA BOTH+LAT/SEAMUS RT / PROCEDURE REASON: Acute pain of right knee * * * * Physician Interpretation * * * * EXAMINATION: XR KNEE 4V AP/PA BOTH+LAT/SEAMUS RT CLINICAL HISTORY: Right knee pain Technique: XR KNEE 4V AP/PA BOTH+LAT/SEAMUS RT -- RIGHT with 4 views on 4 images Comparison: X-ray right knee 07/07/2022 RESULT: No acute fracture or dislocation. Satisfactory position of a right knee prosthesis with no radiographic evidence of loosening. Right superior patellar enthesophytes. Satisfactory position of a left knee prosthesis. IMPRESSION IMPRESSION: No acute osseous abnormality Sand Hauler: [facility] Transcribe Date/Time: Mar 03 2023 1:03P Dictated by : YOGESH ALBRIGHT MD This examination was interpreted and the report reviewed and electronically signed by: YOGESH ALBRIGHT MD on Mar 03 2023 1:08PM EST [facility] XR Knee - right 4 ViewsOrder ed By: [facility] Provider on 03-03-2023 [facility] XR Knee - right 4 Viewson Radiology Study observation (narrative) [facility] No Panel InformationOrdered By: [facility] Provider on 07-07-2022 [facility] No Panel Informationon 07-07 Radiology Study observation (narrative) [facility] XR Knee - right 4 Viewson IMPRESSION: Stable bilateral total knee arthroplasties Sand Hauler: [facility] Transcribe Date/Time: Jul 07 2022 10:17A Dictated by : PRAKASH MAN DO This examination was interpreted and the report reviewed and electronically signed by: PRAKASH MAN DO on Jul 07 2022 10:17AM EST [facility]_DO_NOT_ USE_DIVISIO N OF RADIOLOGY * * *Final Report* * * DATE OF EXAM: Jul 07 2022 8:35AM WOX 5203 - XR KNEE 4V AP/PA BOTH+LAT/SEAMUS RT / PROCEDURE REASON: Acute pain of right knee * * * * Physician Interpretation * * * * EXAM(s): XR KNEE 4V AP/PA BOTH+LAT/SEAMUS RT EXAM DATE/TIME: 07/07/2022 8:35 AM HISTORY: 81 years old Clinical information: Acute pain of right knee Anterior medial knee pain x 1 week without injury. Hx of TKA x 20 years ago. Pain in the medial aspect of the right knee. Hx of knee replacement. TECHNIQUE: Images: XR KNEE 4V AP/PA BOTH+LAT/SEAMUS RT Comparison: 01/09/2015 RESULT: Findings: Bilateral findings: The components of the bilateral knee arthroplasties are in good alignment with the respective bones and each other. There is no evidence of loosening of the components. Right :No fractures or dislocations are seen. Left :No fractures or dislocations are seen. [facility]_DO_NOT_ USE_DIVISIO N OF RADIOLOGY Provider, [facility] - 07/07/2022 * * *Final Report* * * DATE OF EXAM: Jul 07 2022 8:35AM WOX 5203 - XR KNEE 4V AP/PA BOTH+LAT/SEAMUS RT / PROCEDURE REASON: Acute pain of right knee * * * * Physician Interpretation * * * * EXAM(s): XR KNEE 4V AP/PA BOTH+LAT/SEAMUS RT EXAM DATE/TIME: 07/07/2022 8:35 AM HISTORY: 81 years old Clinical information: Acute pain of right knee Anterior medial knee pain x 1 week without injury. Hx of TKA x 20 years ago. Pain in the medial aspect of the right knee. Hx of knee replacement. TECHNIQUE: Images: XR KNEE 4V AP/PA BOTH+LAT/SEAMUS RT Comparison: 01/09/2015 RESULT: Findings: Bilateral findings: The components of the bilateral knee arthroplasties are in good alignment with the respective bones and each other. There is no evidence of loosening of the components. Right :No fractures or dislocations are seen. Left :No fractures or dislocations are seen. IMPRESSION IMPRESSION: Stable bilateral total knee arthroplasties Sand Hauler: MALLY Transcribe Date/Time: Jul 07 2022 10:17A Dictated by : PRAKASH MAN DO This examination was interpreted and the report reviewed and electronically signed by: PRAKASH MAN DO on Jul 07 2022 10:17AM EST [facility] XR Shoulder - left 3 Viewson 07-07-2022 IMPRESSION: Degenerative changes in the cervical spine and LEFT shoulder as discussed Sand Hauler: MALLY Transcribe Date/Time: Jul 07 2022 10:18A Dictated by : PRAKASH MAN DO This examination was interpreted and the report reviewed and electronically signed by: PRAKASH MAN DO on Jul 07 2022 10:18AM EST [facility]_DO_NOT_ USE_DIVISIO N OF RADIOLOGY * * *Final Report* * * DATE OF EXAM: Jul 07 2022 8:35AM WOX 5252 - XR SHLDR >/=3V AP/JAYRO AP/OTHR LT / PROCEDURE REASON: Acute pain of left shoulder * * * * Physician Interpretation * * * * EXAM(s): XR SHLDR >/=3V AP/JAYRO AP/OTHR LT EXAM DATE/TIME: 07/07/2022 8:35 AM HISTORY: 81 years old Clinical information: Acute pain of left shoulder Posterior left shoulder pain x several weeks without injury Pain in the posterior shoulder TECHNIQUE: Images: XR SHLDR >/=3V AP/JAYRO AP/OTHR LT Comparison: None. RESULT: Marked degenerative changes in the cervical spine noted Findings: Mild narrowing of the AC joint. Moderate narrowing of the glenohumeral joint. Bone density appears well-preserved. No fractures or dislocations are seen. ZZZ_DO_NOT_ USE_DIVISIO N OF RADIOLOGY Provider, [facility] - 07/07/2022 * * *Final Report* * * DATE OF EXAM: Jul 07 2022 8:35AM WOX 5252 - XR SHLDR >/=3V AP/JAYRO AP/OTHR LT / PROCEDURE REASON: Acute pain of left shoulder * * * * Physician Interpretation * * * * EXAM(s): XR SHLDR >/=3V AP/JAYRO AP/OTHR LT EXAM DATE/TIME: 07/07/2022 8:35 AM HISTORY: 81 years old Clinical information: Acute pain of left shoulder Posterior left shoulder pain x several weeks without injury Pain in the posterior shoulder TECHNIQUE: Images: XR SHLDR >/=3V AP/JAYRO AP/OTHR LT Comparison: None. RESULT: Marked degenerative changes in the cervical spine noted Findings: Mild narrowing of the AC joint. Moderate narrowing of the glenohumeral joint. Bone density appears well-preserved. No fractures or dislocations are seen. IMPRESSION IMPRESSION: Degenerative changes in the cervical spine and LEFT shoulder as discussed Sand Hauler: MALLY Transcribe Date/Time: Jul 07 2022 10:18A Dictated by : PRAKASH MAN DO This examination was interpreted and the report reviewed and electronically signed by: PRAKASH MAN DO on Jul 07 2022 10:18AM EST [facility] US THYROID/PARATHYROIDon [facility] No Panel InformationOrdered By: [facility] Provider on 04-16-2022 [facility] No Panel Informationon 04-16 Radiology Study observation (narrative) [facility] XR Chest PA and Lateralon IMPRESSION: Stable exam without acute findings. Sand Hauler: MALLY Transcribe Date/Time: Apr 16 2022 3:37P Dictated by : GILBERTO WIN MD This examination was interpreted and the report reviewed and electronically signed by: GILBERTO WIN MD on Apr 16 2022 3:39PM EST [facility]_DO_NOT_ USE_DIVISIO N OF RADIOLOGY * * *Final Report* * * DATE OF EXAM: Apr 16 2022 3:31PM WOX 5291 - XR CHEST 2V FRONTAL/LAT / PROCEDURE REASON: Cough * * * * Physician Interpretation * * * * EXAMINATION: CHEST RADIOGRAPH (2 VIEW FRONTAL & LATERAL) CLINICAL HISTORY: Cough MQ: XC2_6 EXAM DATE/TIME: 04/16/2022 3:31 PM COMPARISON: Chest x-ray on 03/02/2022. RESULT: Lines, tubes, and devices: None. Lungs and pleura: There appears be mild right basilar atelectasis. No consolidation. No lung mass. No pleural effusion. No pneumothorax. Right-sided large pericardial fat pad is again demonstrated. Cardiomediastinal silhouette: Stable cardiac silhouette, with tortuosity of the thoracic aorta. Patient is status post mitral annuloplasty. Bones and soft tissues: The spine shows degenerative changes. There are multiple left-sided old rib fractures. ZZZ_DO_NOT_ USE_DIVISIO N OF RADIOLOGY Provider, Misha Petty - 04/16/2022 * * *Final Report* * * DATE OF EXAM: Apr 16 2022 3:31PM WOX 5291 - XR CHEST 2V FRONTAL/LAT / PROCEDURE REASON: Cough * * * * Physician Interpretation * * * * EXAMINATION: CHEST RADIOGRAPH (2 VIEW FRONTAL & LATERAL) CLINICAL HISTORY: Cough MQ: XC2_6 EXAM DATE/TIME: 04/16/2022 3:31 PM COMPARISON: Chest x-ray on 03/02/2022. RESULT: Lines, tubes, and devices: None. Lungs and pleura: There appears be mild right basilar atelectasis. No consolidation. No lung mass. No pleural effusion. No pneumothorax. Right-sided large pericardial fat pad is again demonstrated. Cardiomediastinal silhouette: Stable cardiac silhouette, with tortuosity of the thoracic aorta. Patient is status post mitral annuloplasty. Bones and soft tissues: The spine shows degenerative changes. There are multiple left-sided old rib fractures. IMPRESSION IMPRESSION: Stable exam without acute findings. [facility] Transcribe Date/Time: Apr 16 2022 3:37P Dictated by : GILBERTO WIN MD This examination was interpreted and the report reviewed and electronically signed by: GILBERTO WIN MD on Apr 16 2022 3:39PM EST [facility] XR Neck AP and Lateralon IMPRESSION: No soft tissue abnormality identified. Sand Hauler: [facility] Transcribe Date/Time: Apr 16 2022 3:38P Dictated by : STANLEY CURRY MD This examination was interpreted and the report reviewed and electronically signed by: STANLEY CURRY MD on Apr 16 2022 3:39PM EST [facility]_DO_NOT_ USE_DIVISIO N OF RADIOLOGY * * *Final Report* * * DATE OF EXAM: Apr 16 2022 3:31PM WOX 5238 - XR NECK SOFT TISSUE 2V AP/LAT / PROCEDURE REASON: Globus sensation * * * * Physician Interpretation * * * * Cervical spine radiographs HISTORY: 81 years old Clinical information: Globus sensation cough, congestion and feels like he has something stuck in his throat for 3 days. The throat is getting worse. TECHNIQUE: Images: XR NECK SOFT TISSUE 2V AP/LAT Comparison: None. RESULT: Findings: Epiglottis is normal in appearance. The prevertebral soft tissues are within normal limits. Vascular calcifications are seen in the neck. Imaged lung apices are clear. Intervertebral disc space narrowing and endplate osteophyte formation at multiple levels in the cervical spine. No fracture. ZZZ_DO_NOT_ USE_DIVISIO N OF RADIOLOGY Provider, [facility] - 04/16/2022 * * *Final Report* * * DATE OF EXAM: Apr 16 2022 3:31PM WOX 5238 - XR NECK SOFT TISSUE 2V AP/LAT / PROCEDURE REASON: Globus sensation * * * * Physician Interpretation * * * * Cervical spine radiographs HISTORY: 81 years old Clinical information: Globus sensation cough, congestion and feels like he has something stuck in his throat for 3 days. The throat is getting worse. TECHNIQUE: Images: XR NECK SOFT TISSUE 2V AP/LAT Comparison: None. RESULT: Findings: Epiglottis is normal in appearance. The prevertebral soft tissues are within normal limits. Vascular calcifications are seen in the neck. Imaged lung apices are clear. Intervertebral disc space narrowing and endplate osteophyte formation at multiple levels in the cervical spine. No fracture. IMPRESSION IMPRESSION: No soft tissue abnormality identified. Sand Hauler: [facility] Transcribe Date/Time: Apr 16 2022 3:38P Dictated by : STANLEY CURRY MD This examination was interpreted and the report reviewed and electronically signed by: STANLEY CURRY MD on Apr 16 2022 3:39PM EST [facility] CBC W Auto Differential pane l (Bld)on 03-02-2022 Basophils (Bld) [#/Vol] 0.04 10*3/uL Normal <0.11 [facility] Comment on above: Order Comment: Speci men Type: BLOOD SPECIMEN Ordering Facility: [facility] Address: [address] [place] [id number] Performed By: #### 5 7021-8 #### [facility] CLIA [id number] [address] [place] Basophils/100 WBC (Bld) 0.9 % Normal [facility] Comment on above: Order Comment: Speci men Type: BLOOD SPECIMEN Ordering Facility: [facility] Address: [address] [place] [address] Performed By: #### 5 7021-8 #### [facility] CLIA [id number] [address] [place] Differential cell count method Nom (Bld) Auto Normal [facility] Comment on above: Order Comment: Speci men Type: BLOOD SPECIMEN Ordering Facility: [facility] Address: [address] [place] [address] Performed By: #### 5 7021-8 #### [facility] CLIA [id number] [address] [place] Eosinophils (Bld) [#/Vol] 0.10 10*3/uL Normal <0.46 [facility] Comment on above: Order Comment: Speci men Type: BLOOD SPECIMEN Ordering Facility: [facility] Address: [address] [place] [address] Performed By: #### 5 7021-8 #### [facility] CLIA [id number] [address] Eosinophils/100 WBC (Bld) 2.3 % Normal [facility] Comment on above: Order Comment: Speci men Type: BLOOD SPECIMEN Ordering Facility: [facility] Address: [address] [place] [address] Performed By: #### 5 7021-8 #### [facility] CLIA [id number] [address] [place] Erythrocyte distribution width (RBC) [Ratio] 13.2 % Normal 11.5-15.0 [facility] Comment on above: Order Comment: Speci men Type: BLOOD SPECIMEN Ordering Facility: [facility] Address: [address] [place] [address] Performed By: #### 5 7021-8 #### [facility] CLIA [id number] [address] [place] Hematocrit (Bld) [Volume fraction] 46.8 % Normal 39.0-51.0 [facility] Comment on above: Order Comment: Speci men Type: BLOOD SPECIMEN Ordering Facility: [facility] Address: [address] [place] [address] Performed By: #### 5 7021-8 #### [facility] CLIA [id number] [address] Hemoglobin (Bld) [Mass/Vol] 16.0 g/dL Normal 13.0-17.0 [facility] Comment on above: Order Comment: Speci men Type: BLOOD SPECIMEN Ordering Facility: [facility] Address: [address] [place] [address] Performed By: #### 5 7021-8 #### [facility] CLIA [id number] [address] IMMATURE GRAN % 0.5 % Normal [facility] Comment on above: Order Comment: Speci men Type: BLOOD SPECIMEN Ordering Facility: [facility] Address: [address] [place] [address] Performed By: #### 5 7021-8 #### [facility] CLIA [id number] [address] IMMATURE GRAN ABS <0.03 Normal <0.10 [facility] Comment on above: Order Comment: Speci men Type: BLOOD SPECIMEN Ordering Facility: [facility] Address: [address] [place] [address] Performed By: #### 5 7021-8 #### [facility] CLIA [id number] [address] Lymphocytes (Bld) [#/Vol] 1.56 10*3/uL Normal 1.00-4.00 [facility] Comment on above: Order Comment: Speci men Type: BLOOD SPECIMEN Ordering Facility: [facility] Address: [address] [place] [address] Performed By: #### 5 7021-8 #### [facility] CLIA [id number] [address] Lymphocytes/100 WBC (Bld) 36.3 % Normal [facility] Comment on above: Order Comment: Speci men Type: BLOOD SPECIMEN Ordering Facility: [facility] Address: [address] [place] [address] Performed By: #### 5 7021-8 #### [facility] CLIA [id number] [address] MCH (RBC) [Entitic mass] 31.9 pg Normal 26.0-34.0 [facility] Comment on above: Order Comment: Speci men Type: BLOOD SPECIMEN Ordering Facility: [facility] Address: [address] [place] [address] Performed By: #### 5 7021-8 #### [facility] CLIA [id number] [address] MCHC (RBC) [Mass/Vol] 34.2 g/dL Normal 30.5-36.0 [facility] Comment on above: Order Comment: Speci men Type: BLOOD SPECIMEN Ordering Facility: [facility] Address: [address] [place] [address] Performed By: #### 5 7021-8 #### [facility] CLIA [id number] [address] MCV (RBC) [Entitic vol] 93.4 fL Normal 80.0-100.0 [facility] Comment on above: Order Comment: Speci men Type: BLOOD SPECIMEN Ordering Facility: [facility] Address: [address] [place] [address] Performed By: #### 5 7021-8 #### [facility] CLIA [id number] [address] Monocytes (Bld) [#/Vol] 0.39 10*3/uL Normal <0.87 [facility] Comment on above: Order Comment: Speci men Type: BLOOD SPECIMEN Ordering Facility: [facility] Address: [address] [place] [address] Performed By: #### 5 7021-8 #### [facility] CLIA [id number] [address] [place] [address] [place] Monocytes/100 WBC (Bld) 9.1 % Normal [facility] Comment on above: Order Comment: Speci men Type: BLOOD SPECIMEN Ordering Facility: [facility] Address: [address] [place] [address] Performed By: #### 5 7021-8 #### [facility] CLIA [id number] [address] [place] [address] [place] Neutrophils (Bld) [#/Vol] 2.19 10*3/uL Normal 1.45-7.50 [facility] Comment on above: Order Comment: Speci men Type: BLOOD SPECIMEN Ordering Facility: [facility] Address: [address] [place] [address] Performed By: #### 5 7021-8 #### [facility] CLIA [id number] [address] [place] Neutrophils/100 WBC (Bld) 50.9 % Normal [facility] Comment on above: Order Comment: Speci men Type: BLOOD SPECIMEN Ordering Facility: [facility] Address: [address] [place] [address] Performed By: #### 5 7021-8 #### [facility] CLIA [id number] [address] [place] Nucleated RBC (Bld) [#/Vol] 10*3/uL Normal <0.01 [facility] Comment on above: Order Comment: Speci men Type: BLOOD SPECIMEN Ordering Facility: [facility] Address: [address] [place] [address] Performed By: #### 5 7021-8 #### [facility] CLIA [id number] [address] [place] Nucleated RBC/100 WBC (Bld) [Ratio] 0.0 /100 WBC Normal [facility] Comment on above: Order Comment: Speci men Type: BLOOD SPECIMEN Ordering Facility: [facility] Address: [address] [place] [address] Performed By: #### 5 7021-8 #### [facility] CLIA [id number] [address] Platelet mean volume (Bld) [Entitic vol] 9.2 fL Normal 9.0-12.7 [facility] Comment on above: Order Comment: Speci men Type: BLOOD SPECIMEN Ordering Facility: [facility] Address: [address] [place] [address] Performed By: #### 5 7021-8 #### [facility] CLIA [id number] [address] [place] Platelets (Bld) [#/Vol] 198 10*3/uL Normal 150-400 [facility] Comment on above: Order Comment: Speci men Type: BLOOD SPECIMEN Ordering Facility: [facility] Address: [address] [place] [address] Performed By: #### 5 7021-8 #### [facility] CLIA [id number] [address] RBC (Bld) [#/Vol] 5.01 10*6/uL Normal 4.20-6.00 [facility] Comment on above: Order Comment: Speci men Type: BLOOD SPECIMEN Ordering Facility: [facility] Address: [address] [place] [address] Performed By: #### 5 7021-8 #### [facility] CLIA [id number] [address] WBC (Bld) [#/Vol] 4.30 10*3/uL Normal 3.70-11.00 [facility] Comment on above: Order Comment: Speci men Type: BLOOD SPECIMEN Ordering Facility: [facility] Address: [address] [place] [address] Performed By: #### 5 7021-8 #### [facility] CLIA [id number] [address] Comprehensive metabolic 2000 panelon 03-02-2022 Albumin [Mass/Vol] 4.1 g/dL Normal 3.9-4.9 [facility] Comment on above: Order Comment: Speci men Type: BLOOD SPECIMEN Ordering Facility: [facility] Address: [address] [address] Performed By: #### [place], [address]-3 #### [facility] CLIA [id number] [address] ALP [Catalytic activity/Vol] 70 U/L Normal 38-113 [facility] Comment on above: Order Comment: Speci men Type: BLOOD SPECIMEN Ordering Facility: [facility] Address: [address] [place] [address] Performed By: #### [place], [address]-7 #### [facility] CLIA [id number] [address] STATES [facility] ALT [Catalytic activity/Vol] 17 U/L Normal 10-54 [facility] Comment on above: Order Comment: Speci men Type: BLOOD SPECIMEN Ordering Facility: [facility] Address: [address] [place] [address] Performed By: #### T NT, #### [facility] CLIA [id number] [address] STATES [facility] Anion gap [Moles/Vol] 8 mmol/L Low 9-18 [facility] Comment on above: Order Comment: Speci men Type: BLOOD SPECIMEN Ordering Facility: [facility] Address: [address] [place] [address] Performed By: #### T NT, #### [facility] CLIA [id number] [address] STATES [facility] AST [Catalytic activity/Vol] Normal [facility] Comment on above: Order Comment: Speci men Type: BLOOD SPECIMEN Ordering Facility: [facility] Address: [address] [place] [address] Result Comment: Unab le to assay due to interference from hemolysis. Suggest reorder as clinically indicated. Performed By: #### [place], [address]-0 #### [facility] CLIA [id number] [address] [place] Bilirubin [Mass/Vol] 0.5 mg/dL Normal 0.2-1.3 [facility] Comment on above: Order Comment: Speci men Type: BLOOD SPECIMEN Ordering Facility: [facility] Address: [address] [place] [address] Performed By: #### T NT, #### [facility] CLIA [id number] [address] [place] Calcium [Mass/Vol] 9.4 mg/dL Normal 8.5-10.2 [facility] Comment on above: Order Comment: Speci men Type: BLOOD SPECIMEN Ordering Facility: [facility] Address: [address] [place] [address] Performed By: #### T NT, #### [facility] CLIA [id number] [address] [place] [address] [place] Chloride [Moles/Vol] 104 mmol/L Normal 97-105 [facility] Comment on above: Order Comment: Speci men Type: BLOOD SPECIMEN Ordering Facility: [facility] Address: [address] [place] [address] Performed By: #### T NT, #### [facility] CLIA [id number] [address] [place] [address] [place] CO2 [Moles/Vol] 30 mmol/L Normal 22-30 [facility] Comment on above: Order Comment: Speci men Type: BLOOD SPECIMEN Ordering Facility: [facility] Address: [address] [place] [address] Performed By: #### T NT, #### [facility] CLIA [id number] [address] [place] [address] [place] Creatinine [Mass/Vol] 1.01 mg/dL Normal 0.73-1.22 [facility] Comment on above: Order Comment: Speci men Type: BLOOD SPECIMEN Ordering Facility: [facility] Address: [address] [place] [address] Performed By: #### T NT, #### [facility] CLIA [id number] [address] [place] ESTIMATED GLOMERULAR FILTRATION RATE 76 mL/min/1.73m??? Normal >=60 [facility] Comment on above: Order Comment: Tiesha maxwell Type: BLOOD SPECIMEN Ordering Facility: [facility] Address: [address] [place], [place] [id number] Result Comment: Svetlana mated Glomerular Filtration Rate (eGFR) is calculated using the 2020 CKD-EPI creatinine equation. This equation utilizes serum creatinine, sex, and age as parameters. The creatinine assay has traceable calibration to isotope dilution-mass spectrometry. Refer to KDIGO guidelines for clinical interpretation. In patients with unstable renal function, e.g. those with acute kidney injury, the eGFR may not accurately reflect actual GFR. Performed By: #### T [place], 03841-9 #### [facility] CLIA [id number] [address] [place] [address] [place] Glucose [Mass/Vol] 124 mg/dL High 74-99 [facility] Comment on above: Order Comment: Tiesha maxwell Type: BLOOD SPECIMEN Ordering Facility: [facility] Address: [address] [place] [address] Result Comment: The [place] [employer] (ADA) provides guidance for cutoff values for fasting glucose and random glucose. The ADA defines fasting as no caloric intake for at least 8 hours. Fasting plasma glucose results between 100 to 125 mg/dL indicate increased risk for diabetes (prediabetes). Fasting plasma glucose results greater than or equal to 126 mg/dL meet the criteria for diagnosis of diabetes. In the absence of unequivocal hyperglycemia, results should be confirmed by repeat testing. In a patient with classic symptoms of hyperglycemia or hyperglycemic crisis, random plasma glucose results greater than or equal to 200 mg/dL meet the criteria for diagnosis of diabetes. Reference: Standards of Medical Care in Diabetes 2016, [place] [employer]. Diabetes Care. 2016.39(Suppl 1). Performed By: #### T NT, 94555-5 #### [facility] CLIA [id number] [address] [place] [address] [place] Potassium [Moles/Vol] 4.9 mmol/L Normal 3.7-5.1 [facility] Comment on above: Order Comment: Tiesha maxwell Type: BLOOD SPECIMEN Ordering Facility: [facility] Address: [address] [facility] [address] Performed By: #### [place], 223[address]-4 #### [facility] CLIA [id number] [address] STATES [facility] Protein [Mass/Vol] 6.7 g/dL Normal 6.3-8.0 [facility] Comment on above: Order Comment: Speci men Type: BLOOD SPECIMEN Ordering Facility: [facility] Address: [address] [place] [address] Performed By: #### T NT, #### [facility] CLIA [id number] [address] [place] Sodium [Moles/Vol] 142 mmol/L Normal 136-144 [facility] Comment on above: Order Comment: Speci men Type: BLOOD SPECIMEN Ordering Facility: [facility] Address: [address] [place] [address] Performed By: #### T NT, #### [facility] CLIA [id number] [address] Urea nitrogen [Mass/Vol] 18 mg/dL Normal 9-24 [facility] Comment on above: Order Comment: Speci men Type: BLOOD SPECIMEN Ordering Facility: [facility] Address: [address] [place] [address] Performed By: #### T NT, #### [facility] CLIA [id number] [address] D dimer FEU PPP-mCncon 03-02 Fibrin D-dimer FEU (PPP) [Mass/Vol] 240 ng/mL FEU Normal <500 [facility] Comment on above: Order Comment: Speci men Type: BLOOD SPECIMEN Ordering Facility: [facility] Address: [address] [place] [address] Performed By: #### 4 8065-7 #### [facility] CLIA [id number] [address] [place] ED NOTEon 03-02-2022 ED NOTE HNO ID: [id number] Author: Priscilla Kelly RN Service: Nursing Author Type: Registered Nurse Type: ED Notes Filed: 03/02/2022 7:05 PM Note Text: Pt discharged from the facility at this time in satisfactory condition. Pt peripheral IV removed prior to discharge. Pt educated on how to schedule follow up appt with PCP. This nurse reviewed entire discharge packet with Pt including: medications, side effects, s/s to report to MD. Pt verbalized understanding. Pt has a ride home. Pt left with all personal belongings exiting the facility. Normal [facility] ED NOTE HNO ID: [id number] Author: Edilma Gagnon RN Service: Nursing Author Type: Registered Nurse Type: ED Notes Filed: 03/02/2022 5:48 PM Note Text: Patient was moving into a new home on Tuesday and had some chest pain. Patient states that it went away and did not return. He saw his PCP and EKG was WNL, however d-dimer was elevated. Placed on con't monitoring. Normal [facility] ED PROV NOTEon 03-02-2022 ED PROV NOTE HNO ID: [id number] Author: Orlando Green PA-C Service: ? Author Type: Physician Mine Technician Type: ED Provider Notes Filed: 03/02/2022 7:21 PM Note Text: [facility] EM[facility] ENCOUnter Pt Name: Maximo Nixon Birthdate 1940 Date of evaluation: 03/02/2022 Provider: Orlando Green MS, PA-C CHIEF COMPLAINT chief complaint Blood test abnormality HISTORY OF PRESENT ILLNESS (Location/Symptom, Timing/Onset, Context/Setting, Quality, Duration, Modifying Factors, Severity) Note limiting factors. HPI Maximo Nixon is a 81 year old male who presents to the emergency department with complaint of a blood test abnormality. This past Tuesday the patient had some left-sided chest pain. It was at the inferior aspect of the left breast area. He says it was a little bit more uncomfortable than the usual pains that he feels in that area, lasted for a while but he did not quantify a period of time, and then went away Tuesday and has not returned. He saw his primary provider who did an EKG as well as some blood work and it is reported that the D-dimer was elevated. They called him and advised him to come to the ER immediately as a result. Currently he has no complaints, there is no pain scale or character. No aggravating or alleviating factors, radiating symptoms, or any other associated symptoms. Patient says he is completely asymptomatic. This patient's PMH is significant for as stated in PMH/surgical history section(s). He denies any known personal or family history of blood clots and does not take a blood thinner. The patient's family history is significant for as stated in FH section. The patient is a non-smoker. I have reviewed the patient's personal and family past medical history as well as the nurse's notes and I agree. Personal history and family past medical history as listed in this chart. I have reviewed the patient's vitals and agree. REVIEW OF SYSTEMS (2+ for level 4; 10+ for level 5) Review of Systems This patient's personal and family past medical history as stated in HPI and otherwise unremarkable. ROS as stated in HPI otherwise unremarkable, a total of 10 systems reviewed. 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, 2012 SURGICAL HISTORY PAST SURGICAL HISTORY Procedure Laterality Date - COLONOSCOPY FLX DX W/COLLJ SPEC WHEN PFRMD 05/06/11 - EGD TRANSORAL BIOPSY SINGLE/MULTIPLE 05/06/11 - ESOPHAGOGASTRODUODENOSCOPY TRANSORAL DIAGNOSTIC 11/28/2009 EGD - ESOPHAGOGASTRODUODENOSCOPY TRANSORAL DIAGNOSTIC 02/13/2020 EGD - PAST SURGICAL HISTORY OF 2006 bilateral TKA - PAST SURGICAL HISTORY OF Right 2002 inguinal hernia - PAST SURGICAL HISTORY OF 10/2013 heart valve repair [facility] - RPR 1ST INGUN HRNA AGE 5 YRS/> REDUCIBLE 08/25/2020 Hernia repair, inguinal - XCAPSL CTRC RMVL INSJ IO LENS PROSTH W/O ECP Right 06/04/2015 Cataract Extraction with PC IOL - XCAPSL CTRC RMVL INSJ IO LENS PROSTH W/O ECP 07/02/2015 Cataract Extraction with PC IOL OS CURRENT MEDICATIONS Discharge Medication List as of 03/02/2022 6:57 PM CONTINUE these medications which have NOT CHANGED fluticasone (FLONASE) 50 mcg/actuation nasal spray Use 2 Sprays in each nostril once daily. Rinse mouth after use. Normal, Disp-1 Each, R-2 Dx: 1. URI, acute naproxen (NAPROSYN) 500 mg tablet Take 1 tablet by mouth twice daily as needed (pain/inflammation, take with food.). Normal, Disp-20 tablet, R-0 amLODIPine (NORVASC) 2.5 mg tablet Take 1 tablet by mouth once daily. Normal, Disp-90 tablet, R-3, Long-term Dx: 1. Essential hypertension, benign MULTI-VITAMIN ORAL Take by mouth. Historical Med, Long-term aspirin, enteric coated (ASPIRIN, ENTERIC COATED) 81 mg EC tablet Take 81 mg by mouth once daily. Historical Med ascorbic acid (VITAMIN C) 500 mg tablet Take 2 tablets by mouth once daily. Med Update, R-0 ALLERGIES Lisinopril FAMILY HISTORY FAMILY HISTORY Problem Relation Age of Onset - Alzheimer's Disease Father - other (Other) Daughter brain tumor - Allergies Daughter - None Son - No Ocular Disease No Family History SOCIAL HISTORY Social History Tobacco Use - Smoking status: Never Smoker - Smokeless tobacco: Never Used Substance Use Topics - Alcohol use: No - Drug use: No SCREENINGS PHYSICAL EXAM (up to 7 for level 4, 8 or more for level 5) Physical Exam Constitutional: Patient is AAO x3, appears to be well-nourished and hydrated. Psych: Appropriate mood and affect for chief complaint. Patient is calm and pleasant. Integumentary: Skin intact, no erythema, no ecchymosis, no soft tissue swelling, skin is warm and dry. N (more content not included)... Normal [facility] Fibrin D-dimer FEU (PPP) [Ma ss/Vol]on 03-02-2022 D DIMER AGE-RELATED CUTOFF 790 ng/mL FEU Normal [facility] Comment on above: Order Comment: Speci men Type: BLOOD SPECIMEN Ordering Facility: [facility] Address: [address] [place] [id number] Performed By: #### 4 8065-7 #### [facility] CLIA [id number] [address] [place] [address] [place] No Panel Informationon 03-02 D-Dimer Quantitative (PE/DVT) 3.95 FEU/ug/m 0.27-0.49 [facility] Work Phone: Comment on above: D-Dimer ELEVATED (>0 .49): Additional studies and clinicalassessments are indicated to conclude diagnosis of:Deep Vein Thrombosis (DVT) or Pulmonary Embolism (PE)CRITICAL VALUE VERIFIED. CALLED TO CADEN GUZMAN03/02/22 1648 Prakash Zamora.RESULTS READ BACK BY SAME . TROPONIN Ton 03-02-2022 Troponin T.cardiac [Mass/Vol] ug/L Normal 0.000-0.029 [facility] Comment on above: Order Comment: Speci men Type: BLOOD SPECIMEN Ordering Facility: [facility] Address: [address] [place] [id number] Performed By: #### T [place], [address]-8 #### [facility] CLIA [id number] 1000 [place] [address] [facility] [place] XR CHEST 2V FRONTAL/LATon [facility] XR Chest PA and Lateralon IMPRESSION: No acute cardiopulmonary disease identified. Sand Hauler: MALLY Transcribe Date/Time: Mar 02 2022 3:54P Dictated by : STANLEY CURRY MD This examination was interpreted and the report reviewed and electronically signed by: STANLEY CURRY MD on Mar 02 2022 3:55PM [facility] DIVISION OF RADIOLOGY * * *Final Report* * * DATE OF EXAM: Mar 02 2022 3:37PM WOX [id number] - XR CHEST 2V FRONTAL/LAT / PROCEDURE REASON: Chest pain, unspecified type * * * * Physician Interpretation * * * * EXAMINATION: CHEST RADIOGRAPH (2 VIEW FRONTAL & LATERAL) CLINICAL HISTORY: Chest pain, unspecified type MQ: XC2_6 EXAM DATE/TIME: 03/02/2022 3:37 PM COMPARISON: 08/29/2014 RESULT: Lines, tubes, and devices: None. Lungs and pleura: No consolidation. No lung mass. No pleural effusion. No pneumothorax. Cardiomediastinal silhouette: Normal cardiomediastinal silhouette. Bones and soft tissues: Remote left-sided rib fractures. Endplate osteophytes at multiple levels in the thoracic spine. DIVISION OF RADIOLOGY Provider, [facility] [place] - 03/02/2022 * * *Final Report* * * DATE OF EXAM: Mar 02 2022 3:37PM WOX [id number] - XR CHEST 2V FRONTAL/LAT / PROCEDURE REASON: Chest pain, unspecified type * * * * Physician Interpretation * * * * EXAMINATION: CHEST RADIOGRAPH (2 VIEW FRONTAL & LATERAL) CLINICAL HISTORY: Chest pain, unspecified type MQ: XC2_6 EXAM DATE/TIME: 03/02/2022 3:37 PM COMPARISON: 08/29/2014 RESULT: Lines, tubes, and devices: None. Lungs and pleura: No consolidation. No lung mass. No pleural effusion. No pneumothorax. Cardiomediastinal silhouette: Normal cardiomediastinal silhouette. Bones and soft tissues: Remote left-sided rib fractures. Endplate osteophytes at multiple levels in the thoracic spine. IMPRESSION IMPRESSION: No acute cardiopulmonary disease identified. Sand Hauler: MALLY Transcribe Date/Time: Mar 02 2022 3:54P Dictated by : STANLEY CURRY MD This examination was interpreted and the report reviewed and electronically signed by: STANLEY CURRY MD on Mar 02 2022 3:55PM EST [facility] Radiology Study observation (narrative) [facility] XR Chest PA and LateralOrder ed By: [facility] Provider on 03-02-2022 [facility] OCT MACULA CIRRUS OU (BOTH E YES) [facility] Vital Signs Date Time Vital Sign Value Performing Clinician Vijay cabrera 05-01-2025 13:15-0400 Body height 183.9 cm Pulm Wstr Work Phone: [facility] 05-01-2025 13:15-0400 Body mass index (BMI) [Ratio] 27.23 kg/m2 Pulm Wstr Work Phone: [facility] 05-01-2025 13:15-0400 Body weight 92.08 kg Pulm Wstr Work Phone: [facility] 05-01-2025 13:15-0400 Heart rate 66 /min Pulm Wstr Work Phone: [facility] 05-01-2025 13:15-0400 Respiratory rate 14 /min Pulm Wstr Work Phone: [facility] 05-01-2025 13:15-0400 SaO2% (BldA) [Mass fraction] 95 % Pulm Wstr Work Phone: [facility] 04-26-2025 14:52-0400 Body mass index (BMI) [Ratio] 26.78 kg/m2 Diego Huffman MD Work Phone: [facility] 04-26-2025 14:52-0400 Body weight 92.08 kg Diego Huffman MD Work Phone: [facility] 04-26-2025 14:52-0400 Diastolic blood pressure 72 mm[Hg] Diego Huffman MD Work Phone: [facility] 04-26-2025 14:52-0400 Heart rate 92 /min Diego Huffman MD Work Phone: [facility] 04-26-2025 14:52-0400 SaO2% (BldA) [Mass fraction] 95 % Diego Huffman MD Work Phone: [facility] 04-26-2025 14:52-0400 Systolic blood pressure 110 mm[Hg] Diego Huffman MD Work Phone: [facility] 04-23-2025 11:10-0400 Body height 185.4 cm Stacie Coyner TECHNICAL ENGINEER.CN P Work Phone: [facility] 04-23-2025 11:10-0400 Body mass index (BMI) [Ratio] 26.91 kg/m2 Stacie Coyner TECHNICAL ENGINEER.CHILD CARE GROUP LEADER Work Phone: [facility] 04-23-2025 11:10-0400 Body weight 92.53 kg Stacie Coyner TECHNICAL ENGINEER.CN P Work Phone: [facility] 03-20-2025 09:16-0400 Body height 185.4 cm Narciso Jaquez MD Work Phone: [facility] 03-20-2025 09:16-0400 Body mass index (BMI) [Ratio] 26.91 kg/m2 Narciso Jaquez MD Work Phone: [facility] 03-20-2025 09:16-0400 Body weight 92.53 kg Narciso Jaquez MD Work Phone: [facility] 03-20-2025 09:16-0400 Diastolic blood pressure 84 mm[Hg] Narciso Jaquez MD Work Phone: [facility] 03-20-2025 09:16-0400 Heart rate 61 /min Narciso Jaquez MD Work Phone: [facility] 03-20-2025 09:16-0400 Respiratory rate 16 /min Narciso Jaquez MD Work Phone: [facility] 03-20-2025 09:16-0400 SaO2% (BldA) [Mass fraction] 96 % Narciso Jaquez MD Work Phone: [facility] 03-20-2025 09:16-0400 Systolic blood pressure 170 mm[Hg] Narciso Jaquez MD Work Phone: [facility] 03-15-2025 14:43-0400 Body height 185.4 cm Diego Huffman MD Work Phone: [facility] 03-15-2025 14:43-0400 Body mass index (BMI) [Ratio] 27.18 kg/m2 Diego Huffman MD Work Phone: [facility] 03-15-2025 14:43-0400 Body weight 93.44 kg Diego Huffman MD Work Phone: [facility] 03-15-2025 14:43-0400 Diastolic blood pressure 74 mm[Hg] Diego Huffman MD Work Phone: [facility] 03-15-2025 14:43-0400 Heart rate 67 /min Diego Huffman MD Work Phone: [facility] 03-15-2025 14:43-0400 Systolic blood pressure 131 mm[Hg] Diego Huffman MD Work Phone: [facility] 03-03-2025 14:04-0400 Body mass index (BMI) [Ratio] 27.08 kg/m2 Amanda Zavala APRN.CHILD CARE GROUP LEADER Work Phone: [facility] 03-03-2025 14:04-0400 Body temperature 97.3 [degF] Amanda Zavala APRN.CHILD CARE GROUP LEADER Work Phone: [facility] 03-03-2025 14:04-0400 Body weight 93.1 kg Amanda Zavala APRN.CHILD CARE GROUP LEADER Work Phone: [facility] 03-03-2025 14:04-0400 Diastolic blood pressure 81 mm[Hg] Amanda Zavala APRN.CHILD CARE GROUP LEADER Work Phone: [facility] 03-03-2025 14:04-0400 Heart rate 68 /min Amanda Zavala APRN.CHILD CARE GROUP LEADER Work Phone: [facility] 03-03-2025 14:04-0400 Respiratory rate 18 /min Amanda Zavala APRN.CHILD CARE GROUP LEADER Work Phone: [facility] 03-03-2025 14:04-0400 SaO2% (BldA) [Mass fraction] 96 % Amanda Zavala APRN.CHILD CARE GROUP LEADER Work Phone: [facility] 03-03-2025 14:04-0400 Systolic blood pressure 131 mm[Hg] Amanda Zvaala APRN.CHILD CARE GROUP LEADER Work Phone: [facility] 02-18-2025 09:00-0400 Body height 185.4 cm Cornelius Dasilva APRN.CHILD CARE GROUP LEADER , DNP Work Phone: [facility] 02-18-2025 09:00-0400 Body mass index (BMI) [Ratio] 26.91 kg/m2 Cornelius Dasilva APRN.CHILD CARE GROUP LEADER, DNP Work Phone: [facility] 02-18-2025 09:00-0400 Body temperature 97.39 [degF] Cornelius Dasilva APRN.CHILD CARE GROUP LEADER , DNP Work Phone: [facility] 02-18-2025 09:00-0400 Body weight 92.53 kg Cornelius Dasilva APRN.CHILD CARE GROUP LEADER , DNP Work Phone: [facility] 02-18-2025 09:00-0400 Diastolic blood pressure 84 mm[Hg] Cornelius Dasilva APRN.[facility], DNP Work Phone: [facility] Comment on above: Cornelius notified of blood pressure. Alla byrne took medications at 0730. 02-18-2025 09:00-0400 Heart rate 68 /min Cornelius Dasilva APRN.CHILD CARE GROUP LEADER , DNP Work Phone: [facility] 02-18-2025 09:00-0400 Respiratory rate 14 /min Cornelius Dasilva APRN.[facility] , DNP Work Phone: [facility] 02-18-2025 09:00-0400 SaO2% (BldA) [Mass fraction] 94 % Cornelius Dasilva APRN.CHILD CARE GROUP LEADER, DNP Work Phone: [facility] 02-18-2025 09:00-0400 Systolic blood pressure 158 mm[Hg] Cornelius Dasilva APRN.[facility], [facility] Work Phone: [facility] Comment on above: Cornelius notified of blood pressure. Alla byrne took medications at 0730. 01-22-2025 10:42-0500 Body mass index (BMI) [Ratio] 26.35 kg/m2 Sebastian Clutter PA-C Work Phone: [facility] 01-22-2025 10:42-0500 Body temperature 99.1 [degF] Sebastian Clutter PA-C Work Phone: [facility] 01-22-2025 10:42-0500 Body weight 93.1 kg Sebastian Clutter PA-C Work Phone: [facility] 01-22-2025 10:42-0500 Diastolic blood pressure 66 mm[Hg] Sebastian Clutter PA-C Work Phone: [facility] 01-22-2025 10:42-0500 Heart rate 80 /min Sebastian Clutter PA-C Work Phone: [facility] 01-22-2025 10:42-0500 Respiratory rate 16 /min Sebastian Clutter PA-C Work Phone: [facility] 01-22-2025 10:42-0500 SaO2% (BldA) [Mass fraction] 97 % Sebastian Hernandez PA-C Work Phone: [facility] 01-22-2025 10:42-0500 Systolic blood pressure 122 mm[Hg] Sebastian Hernandez PA-C Work Phone: [facility] 01-07-2025 12:45-0500 Body height 188 cm Cornelius Dasilva APRN.CHILD CARE GROUP LEADER , DNP Work Phone: [facility] 01-07-2025 12:45-0500 Body mass index (BMI) [Ratio] 26.45 kg/m2 Cornelius Dasilva APRN.CHILD CARE GROUP LEADER, DNP Work Phone: [facility] 01-07-2025 12:45-0500 Body weight 93.44 kg Cornelius Dasilva APRN.CHILD CARE GROUP LEADER , DNP Work Phone: [facility] 01-07-2025 12:45-0500 Diastolic blood pressure 79 mm[Hg] Cornelius Dasilva APRN.CHILD CARE GROUP LEADER, DNP Work Phone: [facility] 01-07-2025 12:45-0500 Heart rate 62 /min Cornelius Dasilva APRN.CHILD CARE GROUP LEADER , DNP Work Phone: [facility] 01-07-2025 12:45-0500 Systolic blood pressure 132 mm[Hg] Cornelius Dasilva APRN.CHILD CARE GROUP LEADER, DNP Work Phone: [facility] 12-27-2024 14:21-0500 Body height 188 cm Lynette Patel MD Work Phone: [facility] 12-27-2024 14:21-0500 Body mass index (BMI) [Ratio] 26.13 kg/m2 Lynette Patel MD Work Phone: [facility] 12-27-2024 14:21-0500 Body weight 92.3 kg Lynette Patel MD Work Phone: [facility] 12-27-2024 14:21-0500 Diastolic blood pressure 74 mm[Hg] Lynette Patel MD Work Phone: [facility] 12-27-2024 14:21-0500 Heart rate 62 /min Lynette Patel MD Work Phone: [facility] 12-27-2024 14:21-0500 SaO2% (BldA) [Mass fraction] 96 % Lynette Patel MD Work Phone: [facility] 12-27-2024 14:21-0500 Systolic blood pressure 142 mm[Hg] Lynette Patel MD Work Phone: [facility] 10-08-2024 13:29-0500 Body height 182.9 cm Cornelius Dasilva APRN.KIANA MANUEL Work Phone: [facility] 10-08-2024 13:29-0500 Body mass index (BMI) [Ratio] 27.94 kg/m2 Cornelius Dasilva APRN.CNP, DNP Work Phone: [facility] 10-08-2024 13:29-0500 Body temperature 97.59 [degF] Cornelius Dasilva APRN.CNP, DNP Work Phone: [facility] 10-08-2024 13:29-0500 Body weight 93.44 kg Cornelius Dasilva APRN.CNP, DNP Work Phone: [facility] 10-08-2024 13:29-0500 Diastolic blood pressure 76 mm[Hg] Cornelius Dasilva APRN.CNP, DNP Work Phone: [facility] Comment on above: Cornelius notified of blood pressure- patie nt denies pain anywhere but states he has been more stressed with and her cognitive deficits. 10-08-2024 13:29-0500 Heart rate 66 /min Cornelius Dasilva APRN.CNP, DNP Work Phone: [facility] 10-08-2024 13:29-0500 Respiratory rate 14 /min Cornelius Dasilva APRN.CNP, DNP Work Phone: [facility] 10-08-2024 13:29-0500 SaO2% (BldA) [Mass fraction] 94 % Cornelius Dasilva APRN.CHILD CARE GROUP LEADER, DNP Work Phone: [facility] 10-08-2024 13:29-0500 Systolic blood pressure 148 mm[Hg] Cornelius Dasilva APRN.CHILD CARE GROUP LEADER, DNP Work Phone: [facility] Comment on above: Cornelius notified of blood pressure- patiyung nt denies pain anywhere but states he has been more stressed with and her cognitive deficits. 09-26-2024 16:05-0400 Body height 188 cm Diego Huffman MD Work Phone: [facility] 09-26-2024 16:05-0400 Body mass index (BMI) [Ratio] 26.06 kg/m2 Diego Huffman MD Work Phone: [facility] 09-26-2024 16:05-0400 Body weight 92.08 kg Diego Huffman MD Work Phone: [facility] 09-26-2024 16:05-0400 Diastolic blood pressure 70 mm[Hg] Diego Huffman MD Work Phone: [facility] 09-26-2024 16:05-0400 Heart rate 72 /min Diego Huffman MD Work Phone: [facility] 09-26-2024 16:05-0400 SaO2% (BldA) [Mass fraction] 95 % Diego Huffman MD Work Phone: [facility] 09-26-2024 16:05-0400 Systolic blood pressure 126 mm[Hg] Diego Huffman MD Work Phone: [facility] 09-14-2024 10:37-0400 Body height 188 cm Diego Huffman MD Work Phone: [facility] 09-14-2024 10:37-0400 Body mass index (BMI) [Ratio] 25.99 kg/m2 Diego Huffman MD Work Phone: [facility] 09-14-2024 10:37-0400 Body weight 91.81 kg Diego Huffman MD Work Phone: [facility] 09-14-2024 10:37-0400 Diastolic blood pressure 86 mm[Hg] Diego Huffman MD Work Phone: [facility] 09-14-2024 10:37-0400 Heart rate 63 /min Diego Huffman MD Work Phone: [facility] 09-14-2024 10:37-0400 SaO2% (BldA) [Mass fraction] 98 % Diego Huffman MD Work Phone: [facility] 09-14-2024 10:37-0400 Systolic blood pressure 134 mm[Hg] Diego Huffman MD Work Phone: [facility] 08-29-2024 13:15-0400 Body mass index (BMI) [Ratio] 25.81 kg/m2 Ana Resendez TECHNICAL ENGINEER.CHILD CARE GROUP LEADER Work Phone: [facility] 08-29-2024 13:15-0400 Body weight 91.17 kg Ana Resendez TECHNICAL ENGINEER.CHILD CARE GROUP LEADER Work Phone: [facility] 08-29-2024 13:15-0400 Diastolic blood pressure 82 mm[Hg] Ana Resendez TECHNICAL ENGINEER.CHILD CARE GROUP LEADER Work Phone: [facility] 08-29-2024 13:15-0400 Heart rate 59 /min Ana Resendez TECHNICAL ENGINEER.CHILD CARE GROUP LEADER Work Phone: [facility] 08-29-2024 13:15-0400 Respiratory rate 16 /min Ana Resendez TECHNICAL ENGINEER.CHILD CARE GROUP LEADER Work Phone: [facility] 08-29-2024 13:15-0400 SaO2% (BldA) [Mass fraction] 96 % Ana Resendez TECHNICAL ENGINEER.CHILD CARE GROUP LEADER Work Phone: [facility] 08-29-2024 13:15-0400 Systolic blood pressure 142 mm[Hg] Ana Resendez TECHNICAL ENGINEER.CHILD CARE GROUP LEADER Work Phone: [facility] 04-02-2024 10:57-0400 Body height 188 cm Cornelius Dasilva TECHNICAL ENGINEER.CHILD CARE GROUP LEADER , DNP Work Phone: [facility] 04-02-2024 10:57-0400 Body mass index (BMI) [Ratio] 26.58 kg/m2 Cornelius Dasilva APRN.CHILD CARE GROUP LEADER, DNP Work Phone: [facility] 04-02-2024 10:57-0400 Body weight 93.89 kg Cornelius Steffany SKAGGS.CHILD CARE GROUP LEADER , DNP Work Phone: [facility] 03-12-2024 11:00-0400 Diastolic blood pressure 82 mm[Hg] Diego Huffman MD Work Phone: [facility] 03-12-2024 11:00-0400 Systolic blood pressure 136 mm[Hg] Diego Huffman MD Work Phone: [facility] 03-12-2024 10:37-0400 Body weight 94.8 kg Diego Huffman MD Work Phone: [facility] 03-12-2024 10:37-0400 Heart rate 61 /min Diego Huffman MD Work Phone: [facility] 03-12-2024 10:37-0400 SaO2% (BldA) [Mass fraction] 92 % Diego Huffman MD Work Phone: [facility] 09-07-2023 10:26-0400 Diastolic blood pressure 82 mm[Hg] Diego Huffman MD Work Phone: [facility] 09-07-2023 10:26-0400 Heart rate 60 /min Diego Huffman MD Work Phone: [facility] 09-07-2023 10:26-0400 Systolic blood pressure 138 mm[Hg] Diego Huffman MD Work Phone: [facility] 09-07-2023 09:51-0400 Body weight 90.72 kg Diego Huffman MD Work Phone: [facility] 09-07-2023 09:51-0400 SaO2% (BldA) [Mass fraction] 97 % Diego Huffman MD Work Phone: [facility] 08-02-2023 09:42-0400 Body height 185.4 cm Paul Chatterjee PA-C Work Phone: [facility] 08-02-2023 09:42-0400 Body temperature 97.2 [degF] Paul Chatterjee PA-C Work Phone: [facility] 08-02-2023 09:42-0400 Body weight 90.36 kg Paul Chatterjee PA-C Work Phone: [facility] 08-02-2023 09:42-0400 Diastolic blood pressure 82 mm[Hg] Paul Chatterjee PA-C Work Phone: [facility] 08-02-2023 09:42-0400 Heart rate 58 /min Paul Chatterjee PA-C Work Phone: [facility] 08-02-2023 09:42-0400 Respiratory rate 14 /min Paul Chatterjee PA-C Work Phone: [facility] 08-02-2023 09:42-0400 SaO2% (BldA) [Mass fraction] 93 % Paul Chatterjee PA-C Work Phone: [facility] 08-02-2023 09:42-0400 Systolic blood pressure 140 mm[Hg] Paul Chatterjee PA-C Work Phone: [facility] 07-08-2023 15:36-0400 Body weight 89.81 kg Diego Huffman MD Work Phone: [facility] 07-08-2023 15:36-0400 Diastolic blood pressure 68 mm[Hg] Diego Huffman MD Work Phone: [facility] 07-08-2023 15:36-0400 Heart rate 68 /min Diego Huffman MD Work Phone: [facility] 07-08-2023 15:36-0400 SaO2% (BldA) [Mass fraction] 98 % Diego Huffman MD Work Phone: [facility] 07-08-2023 15:36-0400 Systolic blood pressure 120 mm[Hg] Diego Huffman MD Work Phone: [facility] 03-02-2023 09:18-0400 Body height 182.9 cm Diego Huffman MD Work Phone: [facility] 03-02-2023 09:18-0400 Body weight 92.44 kg Diego Huffman MD Work Phone: [facility] 03-02-2023 09:18-0400 Diastolic blood pressure 78 mm[Hg] Diego Huffman MD Work Phone: [facility] 03-02-2023 09:18-0400 Heart rate 60 /min Diego Huffman MD Work Phone: [facility] 03-02-2023 09:18-0400 SaO2% (BldA) [Mass fraction] 96 % Diego Huffman MD Work Phone: [facility] 03-02-2023 09:18-0400 Systolic blood pressure 120 mm[Hg] Diego Huffman MD Work Phone: [facility] 09-01-2022 14:54-0400 Body height 182.9 cm Diego Huffman MD Work Phone: [facility] 09-01-2022 14:54-0400 Body weight 88.18 kg Diego Huffman MD Work Phone: [facility] 09-01-2022 14:54-0400 Diastolic blood pressure 74 mm[Hg] Diego Huffman MD Work Phone: [facility] 09-01-2022 14:54-0400 Heart rate 70 /min Diego Huffman MD Work Phone: [facility] 09-01-2022 14:54-0400 SaO2% (BldA) [Mass fraction] 97 % Diego Huffman MD Work Phone: [facility] 09-01-2022 14:54-0400 Systolic blood pressure 134 mm[Hg] Diego Huffman MD Work Phone: [facility] 07-07-2022 07:40-0400 Body weight 87.09 kg Ana Resendez APRN.CHILD CARE GROUP LEADER Work Phone: [facility] 07-07-2022 07:40-0400 Diastolic blood pressure 97 mm[Hg] Ana Resendez APRN.CHILD CARE GROUP LEADER Work Phone: [facility] 07-07-2022 07:40-0400 Heart rate 58 /min Ana Haagen TECHNICAL ENGINEER.CHILD CARE GROUP LEADER Work Phone: [facility] 07-07-2022 07:40-0400 Respiratory rate 16 /min Ana Haagen TECHNICAL ENGINEER.CHILD CARE GROUP LEADER Work Phone: [facility] 07-07-2022 07:40-0400 SaO2% (BldA) [Mass fraction] 95 % Ana Haagen TECHNICAL ENGINEER.CHILD CARE GROUP LEADER Work Phone: [facility] 07-07-2022 07:40-0400 Systolic blood pressure 140 mm[Hg] Ana Haagen TECHNICAL ENGINEER.CHILD CARE GROUP LEADER Work Phone: [facility] 04-16-2022 14:30-0400 Body temperature 97.59 [degF] Gracie Praisler-Wood TECHNICAL ENGINEER.CHILD CARE GROUP LEADER Work Phone: [facility] 04-16-2022 14:30-0400 Body weight 88 kg Gracie Praisler-Wood TECHNICAL ENGINEER.CHILD CARE GROUP LEADER Work Phone: [facility] 04-16-2022 14:30-0400 Diastolic blood pressure 68 mm[Hg] Gracie Praisler-Wood TECHNICAL ENGINEER.CHILD CARE GROUP LEADER Work Phone: [facility] 04-16-2022 14:30-0400 Heart rate 60 /min Gracie Praisler-Wood TECHNICAL ENGINEER.CHILD CARE GROUP LEADER Work Phone: [facility] 04-16-2022 14:30-0400 Respiratory rate 16 /min Gracie Praisler-Wood TECHNICAL ENGINEER.CHILD CARE GROUP LEADER Work Phone: [facility] 04-16-2022 14:30-0400 SaO2% (BldA) [Mass fraction] 97 % Gracie Praisler-Wood TECHNICAL ENGINEER.CHILD CARE GROUP LEADER Work Phone: [facility] 04-16-2022 14:30-0400 Systolic blood pressure 110 mm[Hg] Gracie Praisler-Wood TECHNICAL ENGINEER.CHILD CARE GROUP LEADER Work Phone: [facility] 03-02-2022 13:51-0400 Body weight 86.82 kg Diego Huffman MD Work Phone: [facility] 03-02-2022 13:51-0400 Diastolic blood pressure 70 mm[Hg] Diego Huffman MD Work Phone: [facility] 03-02-2022 13:51-0400 Heart rate 60 /min Diego Huffman MD Work Phone: [facility] 03-02-2022 13:51-0400 Respiratory rate 16 /min Diego Huffman MD Work Phone: [facility] 03-02-2022 13:51-0400 SaO2% (BldA) [Mass fraction] 92 % Diego Huffman MD Work Phone: [facility] 03-02-2022 13:51-0400 Systolic blood pressure 102 mm[Hg] Diego Huffman MD Work Phone: [facility] 02-25-2022 16:52-0400 Body weight 87.09 kg Diego Huffman MD Work Phone: [facility] 02-25-2022 16:52-0400 Diastolic blood pressure 72 mm[Hg] Diego Huffman MD Work Phone: [facility] 02-25-2022 16:52-0400 Heart rate 68 /min Diego Huffman MD Work Phone: [facility] 02-25-2022 16:52-0400 SaO2% (BldA) [Mass fraction] 95 % Diego Huffman MD Work Phone: [facility] 02-25-2022 16:52-0400 Systolic blood pressure 102 mm[Hg] Diego Huffman MD Work Phone: [facility] Encounters Encounter Date Encounter Type Care Provider Facility Start: 05-24-2025 End: 05-27-2025 Telephone encounter Rosa Elena Cohen Work Phone: Podiatry Start: 05-23-2025 ambulatory DIEGO HUFFMAN Facility :[facility] Start: 05-23-2025 End: 05-23-2025 Subsequent hospital visit by physician [facility] Rej Work Phone: Radiology Comment on above: Neuroma [D36.10] Start: 05-01-2025 End: 05-01-2025 Patient encounter procedure [facility] Work Phone: PULM [facility] Start: 05-01-2025 End: 05-01-2025 ambulatory [facility] Work Phone: PULM [facility] Comment on above: Spirometry Start: 04-26-2025 ambulatory [facility] Facility :[facility] Start: 04-26-2025 End: 04-26-2025 Subsequent hospital visit by physician Virgilio [facility] Work Phone: Radiology Comment on above: Chronic cough [R05.3 ] Start: 04-26-2025 End: 04-26-2025 Patient encounter procedure Diego Huffman MD Work Phone: [facility] Comment on above: Essential hypertensi on, benign (Primary Dx); Chronic cough; Dysphagia, unspecified type; Gastroesophageal reflux disease, unspecified whether esophagitis present Start: 04-26-2025 End: 04-26-2025 ambulatory [facility] Facility:[facility] Start: 04-23-2025 End: 04-23-2025 Office outpatient visit 25 minutes Stacie Hood APRN.CNP Work Phone: Urology Comment on above: OAB (overactive blad margarito) (Primary Dx); BPH with obstruction/lower urinary tract symptoms Start: 04-23-2025 End: 04-23-2025 ambulatory [facility] Facility:[facility] Start: 04-12-2025 End: 04-12-2025 Telephone encounter Jaison [facility] Radiology Comment on above: Appointment Start: 04-12-2025 End: 04-12-2025 Patient encounter procedure Rosa Elena Cohen Work Phone: Podiatry Comment on above: Neuroma (Primary Dx) ; Plantar fasciitis of left foot Start: 04-12-2025 End: 04-12-2025 ambulatory [facility] Facility:[facility] Start: 04-12-2025 End: 04-12-2025 Subsequent hospital visit by physician Xr [facility] Kim Work Phone: Radiology Comment on above: Bilateral foot pain [M79.671, M79.672] Start: 04-09-2025 End: 04-09-2025 Telephone encounter Rosa Elena Cohen Work Phone: Pre Anesthesia Start: 03-27-2025 End: 04-03-2025 Telephone encounter Narciso Jaquez MD Work Phone: Urology Comment on above: Medication Problem Start: 03-20-2025 End: 03-20-2025 Patient encounter procedure Narciso Jaquez MD Work Phone: Urology Comment on above: Urgency of urination (Primary Dx); Benign prostatic hyperplasia with nocturia; Nocturia; OAB (overactive bladder) Start: 03-20-2025 End: 03-20-2025 ambulatory [facility] Facility:[facility] Start: 03-15-2025 End: 03-15-2025 Patient encounter procedure Diego Huffman MD Work Phone: [facility] Comment on above: Essential hypertensi on, benign (Primary Dx); History of atrial fibrillation; Benign prostatic hyperplasia with nocturia; Memory loss; Gastroesophageal reflux disease, unspecified whether esophagitis present; Encounter for immunization Start: 03-15-2025 End: 03-15-2025 ambulatory [facility] Facility:[facility] Start: 03-08-2025 End: 03-08-2025 Follow-up encounter Diego Huffman MD Work Phone: Family [facility] Comment on above: Results Start: 03-08-2025 End: 03-08-2025 ambulatory [facility] Facility:[facility] Start: 03-03-2025 End: 03-03-2025 ambulatory [facility] Facility:[facility] Start: 03-03-2025 End: 03-03-2025 Patient encounter procedure Amanda Zavala APRN.CNP Work Phone: [facility] Comment on above: Sore throat (Primary Dx) Start: 02-28-2025 End: 02-28-2025 Telephone encounter Diego Huffman MD Work Phone: Pulmonology [facility] Comment on above: Results Start: 02-27-2025 End: 02-27-2025 ambulatory [facility] Facility:[facility] Start: 02-18-2025 End: 02-18-2025 ambulatory CORNELIUS DASILVA Facility:[facility] Start: 02-18-2025 End: 02-18-2025 Patient encounter procedure Cornelius Dasilva APRN.KIANA MANUEL Work Phone: Urology Comment on above: OAB (overactive blad margarito) (Primary Dx); Benign prostatic hyperplasia with nocturia; Urgency of urination; Nocturia Start: 01-26-2025 End: 01-29-2025 Follow-up encounter Lynette Patel MD Work Phone: Cardiology Start: 01-25-2025 End: 01-25-2025 ambulatory LYNETTE PATEL Facility:[facility] Start: 01-22-2025 End: 01-22-2025 Subsequent hospital visit by physician Xr [facility] Work Phone: Radiology Comment on above: Acute cough [R05.1] Start: 01-22-2025 End: 01-22-2025 ambulatory [facility] Facility:[facility] Start: 01-22-2025 End: 01-22-2025 Office outpatient visit 25 minutes Sebastian Hernandez PA-C Work Phone: [facility] Comment on above: Acute cough (Primary Dx); Influenza A Start: 01-07-2025 End: 01-07-2025 ambulatory [facility] Facility:[facility] Start: 01-07-2025 End: 01-07-2025 Patient encounter procedure Cornelius Dasilva APRN.CNP, DNP Work Phone: Urology Comment on above: Benign prostatic hyp erplasia with nocturia (Primary Dx); Urgency of urination Start: 12-27-2024 End: 12-27-2024 ambulatory [facility] Facility:[facility] Start: 12-27-2024 End: 12-27-2024 Patient encounter procedure Lynette Patel MD Work Phone: Cardiology Comment on above: S/P MVR (mitral valv e repair) (Primary Dx); Aortic valve insufficiency, etiology of cardiac valve disease unspecified; Tinnitus of right ear; Thick nasal mucus Start: 12-19-2024 End: 12-19-2024 ambulatory [facility] Facility:[facility] Start: 12-19-2024 End: 12-19-2024 Subsequent hospital visit by physician [facility] (I-Stat/1.5t) Work Phone: Radiology Comment on above: 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] Start: 12-10-2024 End: 12-10-2024 ambulatory DIEGO [facility] Facility:[facility] Start: 12-10-2024 End: 12-10-2024 Patient encounter procedure Rosa Elena Ramon MD Work Phone: Otolaryngology Comment on above: 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 (Primary Dx); Tinnitus, bilateral; PND (post-nasal drip) Vasomotor rhinitis ( Primary Dx); Tinnitus, unspecified laterality; Tinnitus, bilateral; Sensorineural hearing loss, asymmetrical Start: 11-06-2024 End: 11-06-2024 ambulatory DIEGO HUFFMAN Facility:[facility] Start: 11-06-2024 End: 11-06-2024 Patient encounter procedure Rosa Elena Cohen Work Phone: Podiatry Comment on above: Neuroma (Primary Dx) ; Foot pain, right Start: 10-08-2024 End: 10-08-2024 ambulatory [facility] Facility:[facility] Start: 10-08-2024 End: 10-08-2024 Patient encounter procedure Cornelius Dasilva APRN.CHILD CARE GROUP LEADER, DNP Work Phone: Urology Comment on above: Benign prostatic hyp erplasia with nocturia (Primary Dx); Urgency of urination Start: 10-03-2024 End: 10-03-2024 Telephone encounter Diego Huffman MD Work Phone: [facility] Comment on above: Results Start: 09-26-2024 End: 09-26-2024 Subsequent hospital visit by physician Virgilio [facility] Work Phone: Radiology Comment on above: Foot pain, right [M7 9.671] Start: 09-26-2024 End: 09-26-2024 Patient encounter procedure Diego Huffman MD Work Phone: [facility] Comment on above: Foot pain, right (Pr imary Dx); Benign prostatic hyperplasia with nocturia; Essential hypertension, benign; Tinnitus of both ears Start: 09-26-2024 End: 09-26-2024 ambulatory [facility] Facility:[facility] Start: 09-14-2024 End: 09-14-2024 Patient encounter procedure Diego Huffman MD Work Phone: [facility] Comment on above: Essential hypertensi on, benign (Primary Dx); Postoperative atrial fibrillation (HCC); Vasomotor rhinitis; Tinnitus, unspecified laterality Start: 09-14-2024 End: 09-14-2024 ambulatory [facility] Facility:[facility] Start: 08-29-2024 End: 08-29-2024 Office outpatient visit 15 minutes Ana Resendez APRN.CHILD CARE GROUP LEADER Work Phone: [facility] Comment on above: Dizziness (Primary D x); Encounter for immunization; Essential hypertension, benign; S/P MVR (mitral valve repair); Urgency of urination Start: 08-29-2024 End: 08-29-2024 ambulatory [facility] Facility:[facility] Start: 08-27-2024 End: 08-27-2024 Emergency department patient visit Diego Armida Facility:[facility] Start: 08-27-2024 End: 08-27-2024 ambulatory [facility] Facility:[facility] Start: 08-27-2024 End: 08-27-2024 Patient encounter procedure Leonarda Dutta APRN.CHILD CARE GROUP LEADER Work Phone: [facility] Comment on above: Dizziness (Primary D x); Lightheadedness Start: 07-31-2024 End: 07-31-2024 Patient encounter procedure Fidencio Renee PA-C Work Phone: [facility] Comment on above: Need for influenza v accination (Primary Dx) Start: 07-31-2024 End: 07-31-2024 ambulatory DIEGO HUFFMAN Facility:[facility] Start: 07-11-2024 Refill Diego Huffman MD Work Phone: [facility] Comment on above: Refill Request Start: 04-02-2024 End: 04-02-2024 Patient encounter procedure Cornelius Dasilva APRN.CHILD CARE GROUP LEADER, DNP Work Phone: Urology Comment on above: Benign prostatic hyp erplasia with nocturia (Primary Dx); Urgency of urination Start: 03-15-2024 Telephone encounter Diego Huffman MD Work Phone: Pulmonology [facility] Comment on above: Results Start: 03-12-2024 End: 03-12-2024 Patient encounter procedure Diego Huffman MD Work Phone: [facility] Comment on above: Essential hypertensi on, benign (Primary Dx); S/P MVR (mitral valve repair); Benign prostatic hyperplasia with nocturia; Urgency of urination Start: 09-07-2023 End: 09-07-2023 Patient encounter procedure Diego Huffman MD Work Phone: [facility] Comment on above: Essential hypertensi on, benign (Primary Dx); Encounter for immunization; S/P MVR (mitral valve repair); Benign prostatic hyperplasia with nocturia; Dermatitis Start: 08-02-2023 End: 08-02-2023 Patient encounter procedure Paul Chatterjee PA-C Work Phone: Urology Comment on above: Urgency of urination (Primary Dx); Nocturia; Benign prostatic hyperplasia with nocturia Start: 07-08-2023 End: 07-08-2023 Patient encounter procedure Diego Huffman MD Work Phone: [facility] Comment on above: Urgency of urination (Primary Dx); Nocturia; Benign prostatic hyperplasia with nocturia Start: 04-06-2023 End: 04-06-2023 Patient encounter procedure Smith Short MD Work Phone: Otolaryngology Comment on above: Vasomotor rhinitis ( Primary Dx); Tinnitus, bilateral; Gastroesophageal reflux disease, unspecified whether esophagitis present Start: 03-03-2023 Telephone encounter Diego Huffman MD Work Phone: [facility] Comment on above: Results Start: 03-02-2023 End: 03-02-2023 Subsequent hospital visit by physician Xr [facility] Work Phone: Radiology Comment on above: Acute pain of right knee [M25.561] Start: 03-02-2023 End: 03-02-2023 Patient encounter procedure Diego Huffman MD Work Phone: [facility] Comment on above: Essential hypertensi on, benign (Primary Dx); PND (post-nasal drip); Acute pain of right knee; Vasomotor rhinitis; Gastroesophageal reflux disease, unspecified whether esophagitis present; S/P MVR (mitral valve repair) Start: 01-03-2023 End: 01-03-2023 Patient encounter procedure Sean Walton OD Work Phone: Optometry Comment on above: 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, bilateral, early dry stage (Primary Dx); Pseudophakia; After cataract not obscuring vision, left; Regular astigmatism, bilateral; Presbyopia Start: 09-09-2022 End: 09-09-2022 Patient encounter procedure Hakeem Jha MD Work Phone: Ophthalmology Comment on above: 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, bilateral, early dry stage (Primary Dx); After cataract not obscuring vision, left; Pseudophakia Start: 09-01-2022 End: 09-01-2022 Patient encounter procedure Diego Huffman MD Work Phone: [facility] Comment on above: Essential hypertensi on, benign (Primary Dx); Encounter for immunization; Postoperative atrial fibrillation (HCC); Gastroesophageal reflux disease, unspecified whether esophagitis present Start: 07-07-2022 End: 07-07-2022 Subsequent hospital visit by physician Virgilio [facility] Work Phone: Radiology Comment on above: Acute pain of right knee [M25.561] Start: 07-07-2022 End: 07-07-2022 Office outpatient visit 15 minutes Ana Rseendez APRN.CHILD CARE GROUP LEADER Work Phone: [facility] Comment on above: Acute pain of left s houlder (Primary Dx); Essential hypertension, benign; Environmental and seasonal allergies; Acute pain of right knee Start: 07-05-2022 Telephone encounter Diego Huffman MD Work Phone: [facility] Comment on above: Right Knee Pain Start: 05-25-2022 Telephone encounter Luis Jammie Cordero DO Work Phone: Cardiology Comment on above: Results (Echo) Start: 04-19-2022 Telephone encounter James Rouse MD Work Phone: [facility] Comment on above: Results (Thyroid US) Start: 04-19-2022 End: 04-19-2022 Subsequent hospital visit by physician Us [facility] Mob 1 Work Phone: Radiology Comment on above: Globus sensation [R0 9.89] Start: 04-17-2022 Telephone encounter Gracie Rossi APRN.CHILD CARE GROUP LEADER Work Phone: [facility] Comment on above: Results Start: 04-16-2022 End: 04-16-2022 Subsequent hospital visit by physician Xr [facility] [place] Work Phone: Radiology Comment on above: Globus sensation [R0 9.89] Start: 04-16-2022 End: 04-16-2022 Patient encounter procedure Gracie Aj APRN.CHILD CARE GROUP LEADER Work Phone: [facility] Comment on above: Cough (Primary Dx); Globus sensation Start: 03-11-2022 Telephone encounter Nurse Card Admin [facility] Work Phone: Cardiology Comment on above: Stress Test Instruct ions Start: 03-02-2022 End: 03-02-2022 Patient encounter procedure [facility], Specimen Start: 03-02-2022 End: 03-02-2022 Subsequent hospital visit by physician Xr [facility] [place] Work Phone: Radiology Comment on above: Chest pain, unspecif ied type [R07.9] Start: 03-02-2022 End: 03-02-2022 Patient encounter procedure Diego Huffman MD Work Phone: [facility] [place] Comment on above: Chest pain, unspecif ied type (Primary Dx); S/P MVR (mitral valve repair); Bradycardia following surgery; Postoperative atrial fibrillation (HCC); Essential hypertension, benign; Mitral valve disorder Start: 02-25-2022 End: 02-25-2022 Patient encounter procedure Diego Huffman MD Work Phone: [facility] Comment on above: URI, acute (Primary Dx) Start: 10-23-2013 End: 11-03-2013 Patient encounter status Cornelius Dasilva APRN.CHILD CARE GROUP LEADER, DNP Work Phone: [facility] Procedures Date Procedure Procedure Detail Performing Clinician Start: 05-23-2025 Us lmtd joint/oth nonvasc xtr strux r-t w/img Rosa Elena Cohen Work Phone: Start: 05-01-2025 Brncdilat rspse spmtry pre&post-brncdilat admn Diego Huffman MD Work Phone: Start: 03-20-2025 Us transrct prstate vol brachytx plnning spx Narciso Jaquez MD Work Phone: Start: 03-20-2025 Urnls dip stick/tablet rgnt auto w/o microscopy Narciso Jaquez MD Work Phone: Start: 03-20-2025 ES CYSTOSCOPY (POC) FOR UROLOGY USE ONLY Narciso Jaquez MD Work Phone: Start: 03-15-2025 Cargomatic-BIONTMandae COVID-19 VACCINE AGE 12+ YR (COMIRNATY) Diego Huffman MD Work Phone: Start: 03-03-2025 STREP A MOLECULAR (POC) Amanda Abran TECHNICAL ENGINEER.CHILD CARE GROUP LEADER Work Phone: Start: 02-18-2025 Urnls dip stick/tablet rgnt auto w/o microscopy Cornelius Dasilva TECHNICAL ENGINEER.CHILD CARE GROUP LEADER, DNP Work Phone: Start: 01-22-2025 Radiologic exam chest 2 views Sebastian Hernandez PAFamiliaC Work Phone: Start: 01-22-2025 INFLUENZA A&B MOLECULAR (POC) Sebastian Augustus PA-C Work Phone: Start: 12-19-2024 Mri brain brain stem w/o w/contrast material Rosa Elena Ramon MD Work Phone: Start: 12-10-2024 HEARING TEST/AUDIOGRAM Ani Tavares Ashley HOLBROOK Work Phone: Start: 10-08-2024 Urnls dip stick/tablet rgnt auto w/o microscopy Cornelius Dasilva TECHNICAL ENGINEER.CHILD CARE GROUP LEADER, DNP Work Phone: Start: 08-29-2024 PFIZER-BIONTECH COVID-19 VACCINE AGE 12+ YR (COMIRNATY) Ana Resendez TECHNICAL ENGINEER.CHILD CARE GROUP LEADER Work Phone: Start: 03-12-2024 Adult depression screening assessment Diego Huffman MD Work Phone: Start: 09-07-2023 INFLUENZA VACCINE, PRSV FREE, AGE 65+ YR, HIGH DOSE, QUADRIVALENT (FLUZONE HIGH-DOSE) Diego Huffman MD Work Phone: Start: 09-07-2023 PFIZER-BIONTECH COVID-19 VACCINE ( SEASON) AGE 12+ YR Diego Huffman MD Work Phone: Start: 08-02-2023 Urnls dip stick/tablet rgnt auto w/o microscopy Paul LUTZC Work Phone: Start: 07-08-2023 Urnls dip stick/tablet rgnt auto w/o microscopy Diego Huffman MD Work Phone: Start: 03-02-2023 Radiologic exam knee complete 4/more views Diego Huffman MD Work Phone: Start: 09-09-2022 Computerized ophthalmic imaging retina Hakeem Jha MD Work Phone: Start: 09-01-2022 INFLUENZA SEASONAL QUADRIVALENT HIGH DOSE AGE 65+ Diego Huffman MD Work Phone: Start: 07-07-2022 Radex shoulder complete minimum 2 views Ana Resendez TECHNICAL ENGINEER.CHILD CARE GROUP LEADER Work Phone: Start: 07-07-2022 Radiologic exam knee complete 4/more views Ana Resendez TECHNICAL ENGINEER.CHILD CARE GROUP LEADER Work Phone: Start: 04-19-2022 Us soft tissue head & neck real time imge docm Gracie Aj TECHNICAL ENGINEER.CHILD CARE GROUP LEADER Work Phone: Start: 04-16-2022 Radiologic exam chest 2 views Gracie Aj TECHNICAL ENGINEER.CHILD CARE GROUP LEADER Work Phone: Start: 04-16-2022 Radiologic examination neck soft tissue Gracie Aj TECHNICAL ENGINEER.CHILD CARE GROUP LEADER Work Phone: Start: 03-02-2022 Radiologic exam chest 2 views Diego Huffman MD Work Phone: Start: 03-02-2022 Adult depression screening assessment Diego Huffman MD Work Phone: Start: 07-02-2019 Adult depression screening assessment Diego Huffman MD Work Phone: Start: 07-08-2015 End: 11-10-2021 History of cataract extraction Status post cataract surgery Cornelius Dasilva APRN.KIANA MANUEL Work Phone: Start: 06-05-2015 End: 11-10-2021 History of cataract extraction S/P cataract surgery - Right Eye Cornelius Dasilva APRN.KIANA MANUEL Work Phone: Plan of Treatment Date Care Activity Detail Author Start: 02-28-2028 Diabetes Screening Diabetes Screening [facility] Start: 03-14-2027 Diabetes Screening Diabetes Screening [facility] Start: 06-22-2026 Urine microalbumin profile [facility] Start: 03-02-2026 DIABETES SCREEN DIABETES SCREEN [facility] Start: 03-02-2026 Diabetes Screening Diabetes Screening [facility] Start: 09-17-2025 End: 09-17-2025 Patient encounter procedure 09/17/2025 2:40 PM EDT Office Visit Family Medicine [place] [address] [place] [address] Diego Huffman MD [address] [place] [address] 6 month follow up [facility] [place] Comment on above: 6 month follow up Start: 07-01-2025 End: 07-01-2025 Patient encounter procedure Cardiology Comment on above: 6 month follow up FOLLOW UP - POST VERONIKA TING Start: 06-25-2025 End: 06-25-2025 Patient encounter procedure 06/25/2025 3:30 PM EDT Office Visit Podiatry [address] [place], [place] [phone] Rosa Elena Cohen [address] [place], [place] [address] discuss us results Podiatry Comment on above: discuss us results Start: 06-20-2025 End: 06-20-2025 Patient encounter procedure 06/20/2025 10:00 AM EDT Appointment Radiology [address] [place] [address] Dysphagia, unspecified type [R13.10]; Gastroesophageal reflux disease, unspecified whether esophagitis present [K21.9] Radiology Comment on above: Dysphagia, unspecified type [R13.10]; Ga stroesophageal reflux disease, unspecified whether esophagitis present [K21.9] Start: 06-04-2025 End: 06-04-2025 Patient encounter procedure 06/04/2025 2:20 PM EDT Office Visit Urology [address] [place] [address] Stacie Hood, TECHNICAL ENGINEER.CHILD CARE GROUP LEADER [address] [place] [address] 6 wks follow up Urology Comment on above: 6 wks follow up Start: 05-23-2025 End: 05-23-2025 Patient encounter procedure 05/23/2025 2:25 PM EDT Appointment Radiology [address] [place] [address] US FOOT RT; KHOI NEUROMA - EVAL 2ND+3RD IMS FOR NEUROMA Radiology Comment on above: US FOOT RT; KHOI NEUROMA - EVAL 2ND+3R D IMS FOR NEUROMA Start: 05-01-2025 End: 05-01-2025 Patient encounter procedure 05/01/2025 1:30 PM EDT Office Visit Urology [address] [address] Narciso Jaquez MD [address] [place] [address] 6 wk cysto follow up Urology Comment on above: 6 wk cysto follow up Start: 05-01-2025 End: 05-01-2025 ambulatory [facility] Comment on above: Chronic cough [R05.3] Start: 04-23-2025 End: 04-23-2025 Patient encounter procedure 04/23/2025 11:20 AM EDT Office Visit Urology [address] [address] Stacie Hood, TECHNICAL ENGINEER.CHILD CARE GROUP LEADER [address] [place] [address] 8 WK F/U Urology Comment on above: 8 WK F/U Start: 04-12-2025 End: 04-12-2025 Patient encounter procedure 04/12/2025 10:45 AM EDT Office Visit Podiatry [address] [place], [place] [phone] Rosa Elena Cohen [address] [place], [place] [phone] bilateral foot follow up Podiatry Comment on above: bilateral foot follow up Start: 04-01-2025 End: 04-01-2025 Patient encounter procedure 04/01/2025 11:00 AM EDT Office Visit Urology [address] [address] Cornelius Dasilva APRN.CHILD CARE GROUP LEADER, DNP [address] [place] [address] 8 WK F/U Urology Comment on above: 8 WK F/U Start: 03-20-2025 End: 03-20-2025 Patient encounter procedure 03/20/2025 9:30 AM EDT Office Visit Urology [address] [address] Narciso Jaquez MD [address] [place] [address] Cysto TRUS Urology Comment on above: Cysto TRUS Start: 03-15-2025 End: 03-15-2025 Patient encounter procedure [facility] [place] Comment on above: 6 month follow up. Fasting labs prior 6 month follow up. c oncerned about wifes dementia Fasting labs prior Start: 03-15-2025 End: 06-14-2025 CBC W Auto Differential panel - Blood COMPLETE BLOOD COUNT AND DIFFERENTIAL Lab Routine Essential hypertension, benign Postoperative atrial fibrillation (HCC) Expected: 03/15/2025, Expires: 06/14/2025 [facility] Work Phone: Comment on above: Expected: 03/15/2025, Expires: Start: 03-15-2025 End: 06-14-2025 Comprehensive metabolic 2000 panel - Serum or Plasma COMPREHENSIVE METABOLIC PANEL Lab Routine Essential hypertension, benign Postoperative atrial fibrillation (HCC) Expected: 03/15/2025, Expires: 06/14/2025 [facility] Comment on above: Expected: 03/15/2025, Expires: Start: 03-15-2025 End: 06-14-2025 Lipid 1996 panel - Serum or Plasma LIPID PANEL BASIC Lab Routine Essential hypertension, benign Expected: 03/15/2025, Expires: 06/14/2025 [facility] Comment on above: Expected: 03/15/2025, Expires: Start: 03-12-2025 Anxiety Screening Anxiety Screening [facility] Start: 03-12-2025 Depression Screening Depression Screening [facility] Start: 03-12-2025 RSV Vaccine (1 - 1-dose 60+ series) RSV Vaccine (1 - 1-dose 60+ series) [facility] Comment on above: Postponed from 2002 (Declined at t his time) Start: 03-12-2025 RSV Vaccine (1 - 1-dose 75+ series) RSV Vaccine (1 - 1-dose 75+ series) [facility] Comment on above: Postponed from 2017 (Declined at t his time) Start: 03-07-2025 End: 02-28-2026 CARBOXYHEMOGLOBIN ELLE CARBOXYHEMOGLOBIN ELLE Lab Routine Polycythemia Expected: 03/07/2025, Expires: 02/28/2026 [facility] Comment on above: Expected: 03/07/2025, Expires: Start: 03-07-2025 End: 02-28-2026 CBC W Auto Differential panel - Blood COMPLETE BLOOD COUNT AND DIFFERENTIAL Lab Routine Polycythemia Expected: 03/07/2025, Expires: 02/28/2026 [facility] Work Phone: Comment on above: Expected: 03/07/2025, Expires: Start: 03-02-2025 DIABETES SCREEN DIABETES SCREEN [facility] Start: 02-27-2025 Covid-19 Vaccine () Covid-19 Vaccine () [facility] Start: 02-18-2025 End: 02-18-2025 Patient encounter procedure 02/18/2025 9:00 AM EDT Office Visit Urology [address] [place], [place] [phone] Cornelius Dasilva APRN.CHILD CARE GROUP LEADER, DNP [address] [place], [place] [phone] 6 WK F/U for Overactive Bladdder / OK PER DB Urology Comment on above: 6 WK F/U for Overactive Bladdder / OK PE R DB Start: 01-25-2025 End: 01-25-2025 Patient encounter procedure 01/25/2025 2:40 PM EST Office Visit Cardiology [address] [address] S/P MVR (mitral valve repair) [Z98.890] Cardiology Comment on above: S/P MVR (mitral valve repair) [Z98.890] Start: 01-07-2025 End: 01-07-2025 Patient encounter procedure 01/07/2025 1:30 PM EST Office Visit Urology [address] [place], [place] [phone] Cornelius Dasilva APRN.CHILD CARE GROUP LEADER, DNP [address] [place], [place] [phone] 3 MTH F/U FOR BPH, Overactive Bladdder. Urology Comment on above: 3 MTH F/U FOR BPH, Overactive Bladdder. Start: 12-27-2024 End: 12-27-2025 Echocardiography ECHO Cardiology Routine S/P MVR (mitral valve repair) Expected: 12/27/2024, Expires: 12/27/2025 [facility] Work Phone: Comment on above: Expected: 12/27/2024, Expires: Start: 12-26-2024 End: 12-26-2024 Patient encounter procedure 12/26/2024 1:40 PM EST Office Visit Cardiology [address] [address] Luis Cordero DO [address] [place] [address] establish care Cardiology Comment on above: establish care Start: 12-19-2024 End: 12-19-2024 Patient encounter procedure 12/19/2024 1:30 PM EST Appointment Radiology [address] [place], [place] [phone] 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 [H90.42 Radiology Comment on above: Sensorineural hearing loss (SNHL) of lef t ear with unrestricted hearing of right ear [H90.42 Start: 12-10-2024 End: 03-11-2025 CREATININE BLD CREATININE BLD Lab Routine 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 Expected: 12/10/2024, Expires: 03/11/2025 [facility] Comment on above: Expected: 12/10/2024, Expires: Start: 12-10-2024 End: 12-10-2024 Patient encounter procedure Audiology Comment on above: Vasomotor rhinitis [J30.0] Start: 11-28-2024 Advance Directive Discussion Advance Directive Discussion [facility] Start: 11-28-2024 Medicare Advantage Annual Wellness Visit Medicare Advantage Annual Wellness Visit [facility] Start: 11-06-2024 End: 11-06-2024 Patient encounter procedure 11/06/2024 1:15 PM EST Office Visit Podiatry [address] [facility] [place] [address] Rosa Elena Cohen [address] [facility] [place] [address] Foot pain, right [M79.671] Podiatry Comment on above: Foot pain, right [M79.671] Start: 10-08-2024 End: 10-08-2024 Patient encounter procedure 10/08/2024 1:30 PM EST Office Visit Urology [address] [facility] [place] [address] Cornelius Dasilva, TECHNICAL ENGINEER.CHILD CARE GROUP LEADER, DNP [address] [facility] [place] [address] Urgency of urination [R39.15] Urology Comment on above: Urgency of urination [R39.15] Start: 09-14-2024 End: 09-14-2024 Patient encounter procedure 09/14/2024 11:00 AM EDT Office Visit Family [facility] [place] [address] [place] [address] Diego Huffman MD [address] [facility] [place] [address] 6 month follow up Family Medicine [place] Comment on above: 6 month follow up Start: 09-07-2024 End: 09-07-2024 Patient encounter procedure 09/07/2024 2:20 PM EDT Office Visit Cardiology [address] [address] Luis Cordero, DO [address] [place], [place] [id number] S/P MVR (mitral valve repair) [Z98.890] Cardiology Comment on above: S/P MVR (mitral valve repair) [Z98.890] Start: 09-02-2024 DIABETES SCREEN DIABETES SCREEN [facility] Start: 08-01-2024 End: 08-01-2024 Patient encounter procedure 08/01/2024 11:00 AM EDT Office Visit Cardiology [address] [address] Bhanu Johansen, DO [address] [place] [address] S/P MVR (mitral valve repair) [Z98.890] Cardiology Comment on above: S/P MVR (mitral valve repair) [Z98.890] Start: 07-29-2024 Covid-19 Vaccine ( season) Covid-19 Vaccine ( season) [facility] Start: 07-29-2024 Covid-19 Vaccine ( season) Covid-19 Vaccine ( season) [facility] Start: 07-29-2024 Influenza vaccination Influenza Vaccine (#1) [facility] Start: 07-08-2024 ANNUAL PCP TEAM CHRONIC DISEASE VISIT ANNUAL PCP TEAM CHRONIC DISEASE VISIT [facility] Start: 07-08-2024 BP CONTROLLED (<130/80) BP CONTROLLED (<130/80) [facility] Start: 03-08-2024 End: 05-08-2024 CBC W Auto Differential panel - Blood CBC + DIFF Lab Routine Essential hypertension, benign Expected: 03/08/2024, Expires: 05/08/2024 [facility] Work Phone: Comment on above: Expected: 03/08/2024, Expires: Start: 03-08-2024 End: 05-08-2024 Comprehensive metabolic 2000 panel - Serum or Plasma COMP METABOLIC PANEL Lab Routine Essential hypertension, benign Expected: 03/08/2024, Expires: 05/08/2024 [facility] Work Phone: Comment on above: Expected: 03/08/2024, Expires: 4 Start: 03-08-2024 End: 05-08-2024 Lipid 1996 panel - Serum or Plasma LIPID PANEL BASIC Lab Routine Essential hypertension, benign Expected: 03/08/2024, Expires: 05/08/2024 [facility] Work Phone: Comment on above: Expected: 03/08/2024, Expires: Start: 03-02-2024 ANNUAL PCP TEAM CHRONIC DISEASE VISIT ANNUAL PCP TEAM CHRONIC DISEASE VISIT [facility] Start: 03-02-2024 BP CONTROLLED (<130/80) BP CONTROLLED (<130/80) [facility] Start: 01-08-2024 Covid-19 Vaccine ( season) Covid-19 Vaccine () [facility] Start: 11-27-2023 Advance Directive Discussion Advance Directive Discussion [facility] Comment on above: Postponed from 11/28/2022 (Declined at t his time) Start: 09-01-2023 ANNUAL PCP TEAM CHRONIC DISEASE VISIT ANNUAL PCP TEAM CHRONIC DISEASE VISIT [facility] Start: 07-29-2023 Influenza vaccination INFLUENZA (#1) [facility] Start: 07-07-2023 ANNUAL PCP TEAM CHRONIC DISEASE VISIT ANNUAL PCP TEAM CHRONIC DISEASE VISIT [facility] Start: 05-11-2023 BP CONTROLLED (<130/80) BP CONTROLLED (<130/80) [facility] Start: 04-16-2023 BP CONTROLLED (<130/80) BP CONTROLLED (<130/80) [facility] Start: 03-02-2023 Adult depression screening assessment DEPRESSION SCREENING [facility] Start: 03-02-2023 ANNUAL PCP TEAM CHRONIC DISEASE VISIT ANNUAL PCP TEAM CHRONIC DISEASE VISIT [facility] Start: 03-02-2023 BP CONTROLLED (<130/80) BP CONTROLLED (<130/80) [facility] Start: 03-02-2023 End: 05-02-2023 CBC W Auto Differential panel - Blood [facility] Work Phone: Comment on above: Expected: 03/02/2023, Expires: 3 Start: 03-02-2023 End: 05-02-2023 Comprehensive metabolic 2000 panel - Serum or Plasma [facility] Work Phone: Comment on above: Expected: 03/02/2023, Expires: 3 Start: 03-02-2023 End: 05-02-2023 LIPID PANEL, NONFASTING [facility] Work Phone: Comment on above: Expected: 03/02/2023, Expires: 3 Start: 02-25-2023 ANNUAL PCP TEAM CHRONIC DISEASE VISIT ANNUAL PCP TEAM CHRONIC DISEASE VISIT [facility] Start: 02-25-2023 BP CONTROLLED (<130/80) BP CONTROLLED (<130/80) [facility] Start: 02-02-2023 COVID-19 VACCINE (5 - Pfizer series) COVID-19 VACCINE (5 - Pfizer series) [facility] Start: 11-28-2022 ADVANCE DIRECTIVE DISCUSSION ADVANCE DIRECTIVE DISCUSSION [facility] Start: 11-28-2022 DEPRESSION ASSESSMENT DEPRESSION ASSESSMENT [facility] Start: 09-01-2022 End: 09-01-2023 CBC W Auto Differential panel - Blood CBC + DIFF Lab Routine Essential hypertension, benign Expected: 09/01/2022, Expires: 09/01/2023 [facility] Work Phone: Comment on above: Expected: 09/01/2022, Expires: 3 Start: 09-01-2022 End: 09-01-2023 Comprehensive metabolic 2000 panel - Serum or Plasma COMP METABOLIC PANEL Lab Routine Essential hypertension, benign Expected: 09/01/2022, Expires: 09/01/2023 [facility] Work Phone: Comment on above: Expected: 09/01/2022, Expires: 3 Start: 09-01-2022 End: 09-01-2023 Lipid 1996 panel - Serum or Plasma LIPID PANEL BASIC Lab Routine Essential hypertension, benign Expected: 09/01/2022, Expires: 09/01/2023 [facility] Work Phone: Comment on above: Expected: 09/01/2022, Expires: 3 Start: 07-29-2022 Influenza vaccination INFLUENZA (#1) [facility] Start: 04-16-2022 End: 06-16-2022 Thyrotropin [Units/volume] in Serum or Plasma [facility] Work Phone: Comment on above: Expected: 04/16/2022, Expires: 2 Start: 03-02-2022 End: 05-02-2022 Basic metabolic 2000 panel - Serum or Plasma [facility] Work Phone: Comment on above: Expected: 03/02/2022, Expires: 2 Start: 03-02-2022 End: 05-02-2022 CBC W Auto Differential panel - Blood [facility] Work Phone: Comment on above: Expected: 03/02/2022, Expires: 2 Start: 03-02-2022 End: 03-02-2023 SARS-CoV-2 (COVID-19) RNA [Presence] in Respiratory specimen by JELENA with probe detection PRE-PROCEDURE & PRE-OPERATIVE COVID Microbiology Routine Chest pain, unspecified type 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 Expected: 03/02/2022, Expires: 03/02/2023 [facility] Work Phone: Comment on above: Expected: 03/02/2022, Expires: 3 Start: 01-17-2022 COVID-19 VACCINE (4 - Booster for Pfizer series) COVID-19 VACCINE (4 - Booster for Pfizer series) [facility] Start: 11-28-2021 ADVANCE DIRECTIVE DISCUSSION ADVANCE DIRECTIVE DISCUSSION [facility] Start: 11-11-2021 COVID-19 VACCINE (4 - Booster for Pfizer series) COVID-19 VACCINE (4 - Booster for Pfizer series) [facility] Start: 07-02-2020 Adult depression screening assessment DEPRESSION SCREENING [facility] Start: 2017 RSV Vaccine (1 - 1-dose 75+ series) RSV Vaccine (1 - 1-dose 75+ series) [facility] Start: 07-24-2011 PNEUMOCOCCAL: 65+ (2 - PCV) PNEUMOCOCCAL: 65+ (2 - PCV) [facility] Start: 1992 SHINGRIX VACCINE (1 of 2) SHINGRIX VACCINE (1 of 2) [facility] Start: 1960 BP CONTROLLED (<130/80) BP CONTROLLED (<130/80) [facility] BLADDER SCAN BLADDER SCAN Pro cedures Routine Benign prostatic hyperplasia with nocturia Urgency of urination Ordered: 04/02/2024 [facility] Work Phone: Comment on above: Ordered: 04/02/2024 CYSTO/TRUS ONLY CYSTO/TRUS ONLY Procedures Routine Benign prostatic hyperplasia with nocturia Urgency of urination Nocturia Ordered: 02/18/2025 [facility] Comment on above: Ordered: 02/18/2025 End: 03-02-2023 ECG COMPLETE ECG COMPLETE ECG Routine Chest pain, unspecified type 1 Occurrences starting 03/02/2022 until 03/02/2023 [facility] Work Phone: Comment on above: 1 Occurrences starting 03/02/2022 until 03/02/2023 Influenza virus A an d B RNA and SARS-CoV-2 (COVID-19) N gene panel - Respiratory specimen by JELENA with probe detection COVID WITH FLUA+B, ROUTINE Microbiology Routine URI, acute Ordered: 02/25/2022 [facility] Work Phone: Comment on above: Ordered: 02/25/2022 End: 05-26-2026 LUNG VOLUMES LUNG VOLUMES PFT Routine Chronic cough 1 Occurrences starting 04/26/2025 until 05/26/2026 [facility] Comment on above: 1 Occurrences starting 04/26/2025 until 05/26/2026 LUNG VOLUMES LUNG VOLUMES PFT Routine Chronic cough 05/01/2025 12:40 PM EDT [facility] Work Phone: End: 01-09-2026 MR Brain WO and W contrast IV MRI BRAIN WO/W IVCON Radiology Routine 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 1 Occurrences starting 12/10/2024 until 01/09/2026 [facility] Work Phone: Comment on above: 1 Occurrences starting 12/10/2024 until 01/09/2026 POST VOID RESIDUAL POST VOID RES IDUAL Procedures Routine Benign prostatic hyperplasia with nocturia Urgency of urination Ordered: 10/08/2024 [facility] Work Phone: Comment on above: Ordered: 10/08/2024 POST VOID RESIDUAL POST VOID RES IDUAL Procedures Routine Benign prostatic hyperplasia with nocturia Urgency of urination Ordered: 01/07/2025 [facility] Work Phone: Comment on above: Ordered: 01/07/2025 POST VOID RESIDUAL POST VOID RES IDUAL Procedures Routine Benign prostatic hyperplasia with nocturia Urgency of urination Nocturia OAB (overactive bladder) Ordered: 02/18/2025 [facility] Work Phone: Comment on above: Ordered: 02/18/2025 End: 05-26-2026 SPIROMETRY WITH DILATOR IF OBSTRUCTED SPIROMETRY WITH DILATOR IF OBSTRUCTED PFT Routine Chronic cough 1 Occurrences starting 04/26/2025 until 05/26/2026 [facility] Work Phone: Comment on above: 1 Occurrences starting 04/26/2025 until 05/26/2026 SPIROMETRY WITH DILA TOR IF OBSTRUCTED SPIROMETRY WITH DILATOR IF OBSTRUCTED PFT Routine Chronic cough 05/01/2025 12:40 PM EDT [facility] Work Phone: End: 03-02-2023 STRESS ECHO TREADMILL STRESS ECHO TREADMILL Cardiology Routine Chest pain, unspecified type 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 1 Occurrences starting 03/02/2022 until 03/02/2023 [facility] Work Phone: Comment on above: 1 Occurrences starting 03/02/2022 until 03/02/2023 UA DIP, URINE (POC) UA DIP, URIN E (POC) Lab Routine Benign prostatic hyperplasia with nocturia Urgency of urination Nocturia OAB (overactive bladder) Ordered: 03/20/2025 [facility] Work Phone: Comment on above: Ordered: 03/20/2025 End: 05-12-2026 US Lower extremity - right US FOOT RIGHT Radiology Routine Neuroma 1 Occurrences starting 04/12/2025 until 05/12/2026 [facility] Work Phone: Comment on above: 1 Occurrences starting 04/12/2025 until 05/12/2026 End: 05-16-2023 Us soft tissue head & neck real time imge docm US THYROID/PARATHYROID Radiology STAT Globus sensation 1 Occurrences starting 04/16/2022 until 05/16/2023 [facility] Work Phone: Comment on above: 1 Occurrences starting 04/16/2022 until 05/16/2023 End: 05-26-2026 XR Chest PA and Lateral XR CHEST 2V FRONTAL/LAT Radiology Routine Chronic cough 1 Occurrences starting 04/26/2025 until 05/26/2026 [facility] Comment on above: 1 Occurrences starting 04/26/2025 until 05/26/2026 XR Chest PA and Lateral XR CHEST 2V FRONTAL/LAT Radiology Routine Chronic cough 04/26/2025 4:01 PM EDT [facility] End: 05-26-2026 XR Esophagus Views W contrast PO XR ESOPHAGRAM Radiology Routine Dysphagia, unspecified type Gastroesophageal reflux disease, unspecified whether esophagitis present 1 Occurrences starting 04/26/2025 until 05/26/2026 [facility] Comment on above: 1 Occurrences starting 04/26/2025 until 05/26/2026 XR Foot - bilateral AP and Lateral and oblique XR FOOT GENERAL 3V AP/LAT/OBL BILATERAL Radiology Routine Bilateral foot pain 04/12/2025 10:04 AM EDT [facility] Work Phone: End: 10-26-2025 XR Foot - right AP and Lateral and oblique XR FOOT GENERAL 3V AP/LAT/OBL RIGHT Radiology Routine Foot pain, right 1 Occurrences starting 09/26/2024 until 10/26/2025 [facility] Work Phone: Comment on above: 1 Occurrences starting 09/26/2024 until 10/26/2025 XR Foot - right AP a nd Lateral and oblique XR FOOT GENERAL 3V AP/LAT/OBL RIGHT Radiology Routine Foot pain, right 09/26/2024 5:37 PM EDT [facility] End: 03-31-2024 XR KNEE GENERAL 4V AP BOTH/PA BOTH/LAT/MERC RIGHT XR KNEE GENERAL 4V AP BOTH/PA BOTH/LAT/MERC RIGHT Radiology Routine Acute pain of right knee 1 Occurrences starting 03/02/2023 until 03/31/2024 [facility] Work Phone: Comment on above: 1 Occurrences starting 03/02/2023 until 03/31/2024 XR KNEE GENERAL 4V A P BOTH/PA BOTH/LAT/MERC RIGHT XR KNEE GENERAL 4V AP BOTH/PA BOTH/LAT/MERC RIGHT Radiology Routine Acute pain of right knee 03/02/2023 10:35 AM EDT [facility] Work Phone: [facility] Immunizations Immunization Date Immunization Notes Care Provider [facility] 03-15-2025 COVID-19 vaccine, ag e 12+ yr (PFIZER-BIONTECH COMIRNATY) Diego Huffman MD Work Phone: [facility] 11-07-2024 zoster vaccine recombinant Diego Huffman MD Work Phone: [facility] 08-29-2024 COVID-19 vaccine, ag e 12+ yr (PFIZER-BIONTECH COMIRNATY) Ana Resendez TECHNICAL ENGINEER.CHILD CARE GROUP LEADER Work Phone: [facility] 07-31-2024 influenza, high dose seasonal, preservative-free Fidencio Renee PA-C Work Phone: [facility] 09-07-2023 COVID-19 vaccine, ag e 12+ yr, 2022- season (PFIZER-BIONTECH) Diego Huffman MD Work Phone: [facility] 09-07-2023 influenza (HD-IIV4) vaccine, age 65+ yr, high dose, quadrivalent, PF (FLUZONE HIGH-DOSE) Diego Huffman MD Work Phone: [facility] 09-07-2023 influenza virus vaccine, unspecified formulation Diego Huffman MD Work Phone: [facility] 09-01-2022 pneumococcal Conjuga te, unspecified formulation Diego Huffman MD Work Phone: [facility] Work Phone: 09-01-2022 influenza, high-dose , quadrivalent vaccine (FLUZONE HIGH DOSE QUADRIVALENT) Diego Huffman MD Work Phone: [facility] 09-01-2022 pneumococcal (PCV20) vaccine, 20 valent (PREVNAR 20) Diego Huffman MD Work Phone: [facility] 09-16-2021 COVID-19 original vaccine, age 12+ yr, monovalent (PFIZER-BIONTECH - PURPLE TOP) Smith Short MD Work Phone: [facility] 09-16-2021 influenza, high-dose , quadrivalent vaccine (FLUZONE HIGH DOSE QUADRIVALENT) Diego Huffman MD Work Phone: [facility] 02-19-2021 COVID-19 original vaccine, age 12+ yr, monovalent (PFIZER-BIONTECH - PURPLE TOP) Smith Short MD Work Phone: [facility] 01-30-2021 COVID-19 original vaccine, age 12+ yr, monovalent (PFIZER-BIONTECH - PURPLE TOP) Smith Short MD Work Phone: [facility] 09-26-2020 influenza, high-dose , quadrivalent vaccine (FLUZONE HIGH DOSE QUADRIVALENT) Diego Huffman MD Work Phone: [facility] 09-07-2019 influenza, high dose seasonal, preservative-free Diego Huffman MD Work Phone: [facility] 08-22-2018 influenza, high dose seasonal, preservative-free Diego Huffman MD Work Phone: [facility] 09-08-2016 influenza, high dose seasonal, preservative-free Diego Huffman MD Work Phone: [facility] 06-22-2016 diphtheria and tetan us toxoids, adsorbed for pediatric use Diego Huffman MD Work Phone: [facility] Work Phone: 06-22-2016 tetanus and diphther ia toxoids, adsorbed, preservative free, for adult use (5 Lf of tetanus toxoid and 2 Lf of diphtheria toxoid) Diego Huffman MD Work Phone: [facility] 08-27-2014 influenza, high dose seasonal, preservative-free Diego Huffman MD Work Phone: [facility] 08-20-2013 influenza virus vaccine, unspecified formulation Diego Huffman MD Work Phone: [facility] Work Phone: 08-19-2012 influenza virus vaccine, unspecified formulation Diego Huffman MD Work Phone: [facility] 08-25-2011 influenza virus vaccine, unspecified formulation Diego Huffman MD Work Phone: [facility] 03-17-2011 tetanus toxoid, redu bart diphtheria toxoid, and acellular pertussis vaccine, adsorbed Diego Huffman MD Work Phone: [facility] Work Phone: 09-14-2010 influenza virus vaccine, unspecified formulation Diego Huffman MD Work Phone: [facility] 07-24-2010 pneumococcal polysaccharide vaccine, 23 valent Diego Huffman MD Work Phone: [facility] Payers Date Payer Category Payer Self-pay [id number] 2021 Medicare [facility] MEDICARE OO S ABDON [facility] MEDICARE PPO OOS [id number] 2021-Present [phone] [address] [place] [address] PPO [id number] 2021 Medicare [facility] MEDICARE OO S ANTHKRYSTAL [facility] MEDICARE PPO OOS [id number] 2021-Present [phone] [address] [place] [address] PPO [id number] 2021 Medicare (Managed Care) BS MED ICARE OOS [id number] 2021 Medicare [id number] Unknown [id number] Social History Date Type Detail Facility Tobacco smoking stat [facility] Never smoked tobacco [facility] Start: 02-25-2022 End: 05-01-2025 Alcohol intake Current non-drinker of alcohol (finding) [facility] Start: 1940 Sex Assigned At Not on file [facility] Start: 02-15-2022 End: 09-09-2022 Exposure to SARS-CoV-2 (event) Not sure [facility] Start: 1940 Sex Assigned At Male [facility] Work Phone: Start: 04-06-2023 End: 07-08-2023 History of Social function [facility] Work Phone: Start: 04-06-2023 End: 07-08-2023 Tobacco use panel [facility] Work Phone: Adult Depression Screening Assessment 0 [facility] Work Phone: Medical Equipment Procedure Code Equipment Code Equipment Origin al Text Equipment Identifier Dates [place] Ptfe 1.2 Cm X 10 Cm - [id number] Start: 10-30-2013 Band Anlplsty 35 mm Melgar - [id number] Start: 10-30-2013 Comment on above: Description: annulop lasty band Mesh Surgipro Me dium Clear Polypropylene 2cm Surgical Nonabsorbable Plug - [id number] Start: 08-25-2020 Functional Status Date Assessment Result Facility 02-24-2015 Are you deaf, or do you have serious difficulty hearing Yes 02/24/2015 1:06 PM EDT Rozina Horne MA Yes [facility] 02-24-2015 Are you blind, or do you have serious difficulty seeing, even when wearing glasses No 02/24/2015 1:06 PM EDT Rozina Horne MA No [facility] 02-24-2015 Do you have serious difficulty walking or climbing stairs Yes 02/24/2015 1:06 PM EDT Rozina Horne MA Yes [facility] 02-24-2015 Do you have difficul ty dressing or bathing No 02/24/2015 1:06 PM EDT Rozina Horne MA No [facility] 02-24-2015 Because of a physica l, mental, or emotional condition, do you have difficulty doing errands alone such as visiting a physician's office or shopping No 02/24/2015 1:06 PM EDT Rozina Horne MA No [facility] Mental Status Date Assessment Result Facility 02-24-2015 Because of a physica l, mental, or emotional condition, do you have serious difficulty concentrating, remembering, or making decisions No 02/24/2015 1:06 PM EDT Rozina Horne MA No [facility] Clinical Notes 07-08-2015 to 05-27-2025 Telephone Encounter - Amber Villa LPN - 05/27/2025 10:31 AM EDTTelephone Encounter - Amber Villa LPN - 05/27/2025 10:31 AM EDTTelephone Encounter - Amber Villa LPN - 05/27/2025 10:31 AM EDT Note Date & Type Note Facility 05-27-2025 Telephone encounter Note Patient notified of results and provider's instructions. Patient verbalizes understanding. Amber Villa LPN [facility] Work Phone: 05-27-2025 Telephone encounter Note Images from the original note were not included. Rosa Elena Cohen [facility] Podiatry Pool3 days ago Please call patient to confirm his ultrasound confirms neuroma. He can make follow-up to discuss results Rosa Elena Cohen DPM [facility] 05-27-2025 Miscellaneous Notes Patient notified of results and provider's instructions. Patient verbalizes understanding. Amber Villa LPN Images from the original note were not included. Rosa Elena Cohen Podiatry Pool3 days ago Please call patient to confirm his ultrasound confirms neuroma. He can make follow-up to discuss results Rosa Elena Cohen DPM documented in this encounter [facility] 04-26-2025 History of Present illness Narrative Radiology Service Progress Note PATIENT NAME: Maximo Nixon DATE OF SERVICE: April 26, 2025 TIME: 3:54 PM PATIENT IDENTITY VERIFICATION COMPLETED USING TWO (2) IDENTIFIERS: Name and Date of confirmed by patient verbally. FALL SCREENING: Has the patient had 2 falls in the last year or 1 fall with injury or currently using an Ambulatory Assistive Device (Walker, Cane, Wheelchair, Crutches, etc.)? No PATIENT GENDER DATA: Assigned male at PATIENT RELEVANT IMPLANT DATA REVIEWED: Not Applicable PATIENT PRESENTS WITH AN IMPLANTABLE OR ATTACHED WING COVERER: No RADIOLOGY DEPARTMENT: General X-ray: Exam(s) Completed: Chest X-Ray PERIPHERAL IV DATA: Not applicable SIGNED BY: RT Carloz(Mercedes) April 26, 2025 3:54 PM documented in this encounter [facility] 04-26-2025 Note HNO ID: [id number] Author: OSMANI WATERMAN RT(R) Service: Radiology Author Type: Technologist Type: Progress Notes Filed: 04/26/2025 16:02 Note Text: Radiology Service Progress Note PATIENT NAME: Maximo Nixon DATE OF SERVICE: April 26, 2025 TIME: 3:54 PM PATIENT IDENTITY VERIFICATION COMPLETED USING TWO (2) IDENTIFIERS: Name and Date of confirmed by patient verbally. FALL SCREENING: Has the patient had 2 falls in the last year or 1 fall with injury or currently using an Ambulatory Assistive Device (Walker, Cane, Wheelchair, Crutches, etc.)? No PATIENT GENDER DATA: Assigned male at PATIENT RELEVANT IMPLANT DATA REVIEWED: Not Applicable PATIENT PRESENTS WITH AN IMPLANTABLE OR ATTACHED WING COVERER: No RADIOLOGY DEPARTMENT: General X-ray: Exam(s) Completed: Chest X-Ray PERIPHERAL IV DATA: Not applicable SIGNED BY: RT Carloz(Mercedes) April 26, 2025 3:54 PM [facility] 04-26-2025 Note HNO ID: [id number] Author: DIEGO HUFFMAN MD Service: ? Author Type: Physician Type: Progress Notes Filed: 04/26/2025 15:50 Note Text: Maximo is an 84-year-old male presenting for evaluation of chronic cough and thick mucus production. HPI Chronic Cough and Mucus Production: - Persistent cough and thick mucus production, x2 years. - Symptoms are constant, but exacerbated during and after eating. - Describes mucus as thick and difficult to swallow. - Recent episodes after eating kyrgyz and also [place] steak. - Unable to finish meals due to symptoms; had to leave a restaurant early. - Denies hoarseness, acid regurgitation, dysphagia, odynophagia, chest discomfort, sneezing, fevers, or chills. - Previously evaluated by ENT on 04/06/2023; prescribed omeprazole and ipratropium nasal spray with no relief. I am unsure if he really took the meds for any amount of time. - Denies current use of omeprazole. - Denies hematochezia or melena. - Denies history of smoking; minimal alcohol consumption in the past, abstinent for 30-40 years. - No caffeine intake; denies use of Advil or Aleve. MEDICATIONS: Current Outpatient Medications Medication Sig solifenacin (VESICARE) 5 mg tablet Take 1 tablet by mouth once daily. mirabegron (MYRBETRIQ) 50 mg Tb24 Take 1 tablet by mouth once daily. amLODIPine (NORVASC) 2.5 mg tablet Take 1 tablet by mouth once daily. nutritional supplement/fiber (JUICE PLUS FIBRE ORAL) Take by mouth. Takes eight daily MULTI-VITAMIN ORAL Take by mouth once daily. aspirin, enteric coated (ASPIRIN, ENTERIC COATED) 81 mg EC tablet Take 81 mg by mouth once daily. ascorbic acid (VITAMIN C) 500 mg tablet Take 2 tablets by mouth once daily. omeprazole (PRILOSEC) 20 mg capsule Take 1 capsule by mouth once daily. No current facility-administered medications for this visit. 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, 2012 PND (post-nasal drip) S/P MVR (mitral valve repair) Vasomotor rhinitis PAST SURGICAL HISTORY Procedure Laterality Date COLONOSCOPY FLX DX W/COLLJ SPEC WHEN PFRMD 05/06/11 EGD TRANSORAL BIOPSY SINGLE/MULTIPLE 05/06/11 ESOPHAGOGASTRODUODENOSCOPY TRANSORAL DIAGNOSTIC 11/28/2009 EGD ESOPHAGOGASTRODUODENOSCOPY TRANSORAL DIAGNOSTIC 02/13/2020 EGD PAST SURGICAL HISTORY OF 2007 bilateral TKA PAST SURGICAL HISTORY OF Right 2003 inguinal hernia PAST SURGICAL HISTORY OF 10/2013 heart valve repair [facility] RPR 1ST INGUN HRNA AGE 5 YRS/> REDUCIBLE 08/25/2020 Hernia repair, inguinal XCAPSL CTRC RMVL INSJ IO LENS PROSTH W/O ECP Right 06/04/2015 Cataract Extraction with PC IOL XCAPSL CTRC RMVL INSJ IO LENS PROSTH W/O ECP 07/02/2015 Cataract Extraction with PC IOL OS FAMILY HISTORY Problem Relation Age of Onset Alzheimer's Disease Father other (Other) Daughter brain tumor Allergies Daughter None Son No Ocular Disease No Family History Social History Tobacco Use Smoking status: Never Smokeless tobacco: Never Vaping Use Vaping status: Never Used Substance Use Topics Alcohol use: No Drug use: Never Reviewed current medications, allergies, past medical history, surgical history, family history and social history today. REVIEW OF SYSTEMS Constitutional: (-) fever, (-) chills Ears/Nose/Mouth/Throat: (+) thick throat mucus, (-) sore throat, (-) hoarseness, (-) sneezing Cardiovascular: (-) chest discomfort Respiratory: (+) cough Gastrointestinal: (+) dysphagia, (+) postprandial regurgitation, (-) black stools, (-) bloody stools, (-) nocturnal acid regurgitation HEALTH MAINTENANCE: Reviewed health maintenance issues today and recommended the following in detail. RSV Vaccine(1 - 1-dose 75+ series) Never done Advance Directive Discussion due on 11/28/2024 Depression Screening due on 03/12/2025 Anxiety Screening due on 03/12/2025 LAB REVIEWED: VITALS: BP 110/72 Pulse 92 Wt 92.1 kg (203 lb) SpO2 95% BMI 26.78 kg/m? Last 4 Encounter Wt Readings: Date: Wt: 04/26/2025 92.1 kg (203 lb) 04/23/2025 92.5 kg (204 lb) 03/20/2025 92.5 kg (204 lb) 03/15/2025 93.4 kg (206 lb) PHYSICAL EXAMINATION: GENERAL: NAD, alert and oriented SKIN: unremarkable, no rash or skin lesions. HEAD: normocephalic EYES: PERRLA, EOMI, conjunctiva clear EARS: external ears normal, canals clear, TM's normal. NOSE/SINUSES: Nares normal. Septum midline. OROPHARYNX: lips, mucosa, and tongue normal, good dentition. No oral lesions noted. NECK: Supple, no lympha (more content not included)... [facility] 04-26-2025 History of Present illness Narrative Maximo is an 84-year-old male presenting for evaluation of chronic cough and thick mucus production. HPI Chronic Cough and Mucus Production: - Persistent cough and thick mucus production, x2 years. - Symptoms are constant, but exacerbated during and after eating. - Describes mucus as thick and difficult to swallow. - Recent episodes after eating kyrgyz and also [place]ian steak. - Unable to finish meals due to symptoms; had to leave a restaurant early. - Denies hoarseness, acid regurgitation, dysphagia, odynophagia, chest discomfort, sneezing, fevers, or chills. - Previously evaluated by ENT on 04/06/2023; prescribed omeprazole and ipratropium nasal spray with no relief. I am unsure if he really took the meds for any amount of time. - Denies current use of omeprazole. - Denies hematochezia or melena. - Denies history of smoking; minimal alcohol consumption in the past, abstinent for 30-40 years. - No caffeine intake; denies use of Advil or Aleve. MEDICATIONS: Current Outpatient Medications Medication Sig solifenacin (VESICARE) 5 mg tablet Take 1 tablet by mouth once daily. mirabegron (MYRBETRIQ) 50 mg Tb24 Take 1 tablet by mouth once daily. amLODIPine (NORVASC) 2.5 mg tablet Take 1 tablet by mouth once daily. nutritional supplement/fiber (JUICE PLUS FIBRE ORAL) Take by mouth. Takes eight daily MULTI-VITAMIN ORAL Take by mouth once daily. aspirin, enteric coated (ASPIRIN, ENTERIC COATED) 81 mg EC tablet Take 81 mg by mouth once daily. ascorbic acid (VITAMIN C) 500 mg tablet Take 2 tablets by mouth once daily. omeprazole (PRILOSEC) 20 mg capsule Take 1 capsule by mouth once daily. No current facility-administered medications for this visit. 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, 2012 PND (post-nasal drip) S/P MVR (mitral valve repair) Vasomotor rhinitis PAST SURGICAL HISTORY Procedure Laterality Date COLONOSCOPY FLX DX W/COLLJ SPEC WHEN PFRMD 05/06/11 EGD TRANSORAL BIOPSY SINGLE/MULTIPLE 05/06/11 ESOPHAGOGASTRODUODENOSCOPY TRANSORAL DIAGNOSTIC 11/28/2009 EGD ESOPHAGOGASTRODUODENOSCOPY TRANSORAL DIAGNOSTIC 02/13/2020 EGD PAST SURGICAL HISTORY OF 2007 bilateral TKA PAST SURGICAL HISTORY OF Right 2003 inguinal hernia PAST SURGICAL HISTORY OF 10/2013 heart valve repair [facility] RPR 1ST INGUN HRNA AGE 5 YRS/> REDUCIBLE 08/25/2020 Hernia repair, inguinal XCAPSL CTRC RMVL INSJ IO LENS PROSTH W/O ECP Right 06/04/2015 Cataract Extraction with PC IOL XCAPSL CTRC RMVL INSJ IO LENS PROSTH W/O ECP 07/02/2015 Cataract Extraction with PC IOL OS FAMILY HISTORY Problem Relation Age of Onset Alzheimer's Disease Father other (Other) Daughter brain tumor Allergies Daughter None Son No Ocular Disease No Family History Social History Tobacco Use Smoking status: Never Smokeless tobacco: Never Vaping Use Vaping status: Never Used Substance Use Topics Alcohol use: No Drug use: Never Reviewed current medications, allergies, past medical history, surgical history, family history and social history today. REVIEW OF SYSTEMS Constitutional: (-) fever, (-) chills Ears/Nose/Mouth/Throat: (+) thick throat mucus, (-) sore throat, (-) hoarseness, (-) sneezing Cardiovascular: (-) chest discomfort Respiratory: (+) cough Gastrointestinal: (+) dysphagia, (+) postprandial regurgitation, (-) black stools, (-) bloody stools, (-) nocturnal acid regurgitation HEALTH MAINTENANCE: Reviewed health maintenance issues today and recommended the following in detail. RSV Vaccine(1 - 1-dose 75+ series) Never done Advance Directive Discussion due on 11/28/2024 Depression Screening due on 03/12/2025 Anxiety Screening due on 03/12/2025 LAB REVIEWED: VITALS: BP 110/72 Pulse 92 Wt 92.1 kg (203 lb) SpO2 95% BMI 26.78 kg/m Last 4 Encounter Wt Readings: Date: Wt: 04/26/2025 92.1 kg (203 lb) 04/23/2025 92.5 kg (204 lb) 03/20/2025 92.5 kg (204 lb) 03/15/2025 93.4 kg (206 lb) PHYSICAL EXAMINATION: GENERAL: NAD, alert and oriented SKIN: unremarkable, no rash or skin lesions. HEAD: normocephalic EYES: PERRLA, EOMI, conjunctiva clear EARS: external ears normal, canals clear, TM's normal. NOSE/SINUSES: Nares normal. Septum midline. OROPHARYNX: lips, mucosa, and tongue normal, good dentition. No oral lesions noted. NECK: Supple, no lymphadenopathy, normal thyroid, no carotid bruits. LUNGS: Clear to auscultation bilaterally, no wheezes/rhonchi/rales. HEART: Regular rate and rhythm, no murmurs. No ectopy. ASSESSMENT AND PLAN 1. Chronic cough (R05.3) 2. Gastroesophageal reflux disease, unspecified whether esophagitis present (K21.9) - Chronic cough exacerbated postprandially; previously trialed on omeprazole without noted improvement. - Reinitiated omeprazole therapy; instructed to take daily until follow-up. - Ordered chest X-ray and pulmonary function test (spirometry) to evaluate for potential pulmonary etiologies. - Scheduled follow-up in 4-6 weeks to reassess symptoms and review test results. 3. Dysphagia, unspecified type (R13.10) - Reports difficulty swallowing due to thick mucus production, particularly postprandially. - Ordered esophagogram to assess swallowing function and rule out structural abnormalities. 4. Essential hypertension, benign (I10) - well controlled. (See patient after visit summary for additional instructions to patient) Diego Huffman MD Recording using [employer] software for draft documentation of the visit was discussed with the patient/authorized artist's representative; all questions welcomed and answered. Patient/authorized artist's representative agreed to proceed documented in this encounter [facility] 04-26-2025 Instructions Diego Huffman MD - 04/26/2025 3:42 PM EDT - Take omeprazole once daily until your follow-up appointment; the prescription has been sent to your pharmacy. - Avoid spicy foods for now to help lessen coughing and throat mucus. - Get a chest x-ray today as ordered. - Complete pulmonary function testing (spirometry) in the other building to assess lung function. - Undergo an esophagogram (barium swallow study) with the speech therapist to evaluate your swallowing. - Return in 4 to 6 weeks to review test results and your symptoms; if your coughing or throat mucus worsens before then, contact the clinic. documented in this encounter [facility] 04-23-2025 Note HNO ID: [id number] Author: STACIE HOOD APRN.KALEB Service: ? Author Type: Nurse Practitioner Type: Progress Notes Filed: 04/23/2025 12:59 Note Text: Maximo Nixon is a 84 year old male who presents today for a follow up for Patient presents with: Established Patient: 8 week follow up/urgency,BPH,OAB CHIEF COMPLAINT AND HISTORY OF PRESENT ILLNESS CC: follow up 84 year old male with a history of htn, oab, bph established with Dr. Jaquez presents for OAB medication follow up, he was started on mirabegron 50 mg daily 6 weeks ago for reports of increased frequency and nocturia, he only took the mirabegron for one week and the vesicare 5 mg for one week with no improvement so he stopped, he is getting up 2-3 times per night to void, +tinnitus, DTF 6-7 times. +urgency with some UUI, no use of pads. He has to squeeze his penis to control his urine. Denies dysuria, gross hematuria Drinking flavored water PVR 0 cc Cystoscopy/TRUS 03/20/2025 minimally enlarged lateral lobes, normal median lobes 24 gram prostate s/p greenlight laser 02/2013 Past use of oxybutynin and flomax International Prostate Symptom Score (IPSS) 1. Incomplete emptyin 2. Frequency: 3 3. Intermittency: 0 4. Urgency: 2 5. Weak stream: 5 6. Strainin 7. Nocturia: 2 Total: Quality of Life: 6 terrible VITALS: Height 185.4 cm (6' 1), weight 92.5 kg (204 lb). ALLERGIES: Lisinopril MEDICATIONS: Current Outpatient Medications Medication Sig Dispense Refill solifenacin (VESICARE) 5 mg tablet Take 1 tablet by mouth once daily. 30 tablet 3 mirabegron (MYRBETRIQ) 50 mg Tb24 Take 1 tablet by mouth once daily. 30 tablet 3 amLODIPine (NORVASC) 2.5 mg tablet Take 1 tablet by mouth once daily. 90 tablet 3 nutritional supplement/fiber (JUICE PLUS FIBRE ORAL) Take by mouth. Takes eight daily MULTI-VITAMIN ORAL Take by mouth once daily. aspirin, enteric coated (ASPIRIN, ENTERIC COATED) 81 mg EC tablet Take 81 mg by mouth once daily. ascorbic acid (VITAMIN C) 500 mg tablet Take 2 tablets by mouth once daily. 0 No current facility-administered medications for this visit. SOCIAL HISTORY: Social History Tobacco Use Smoking status: Never Smokeless tobacco: Never Vaping Use Vaping status: Never Used Substance Use Topics Alcohol use: No Drug use: Never PAST MEDICAL HISTORY: PAST MEDICAL HISTORY Diagnosis Date Acute gastritis without mention of hemorrhage Arrhythmia Benign prostatic hyperplasia with nocturia BPH associated with nocturia Esophagitis, unspecified Essential hypertension, benign 05/25/2012 Gastroesophageal reflux disease, unspecified whether esophagitis present GERD (gastroesophageal reflux disease) OAB (overactive bladder) Paroxysmal A-fib (HCC) transitory 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, 2012 PND (post-nasal drip) S/P MVR (mitral valve repair) Vasomotor rhinitis PAST SURGICAL HISTORY: PAST SURGICAL HISTORY Procedure Laterality Date COLONOSCOPY FLX DX W/COLLJ SPEC WHEN PFRMD 05/06/11 EGD TRANSORAL BIOPSY SINGLE/MULTIPLE 05/06/11 ESOPHAGOGASTRODUODENOSCOPY TRANSORAL DIAGNOSTIC 11/28/2009 EGD ESOPHAGOGASTRODUODENOSCOPY TRANSORAL DIAGNOSTIC 02/13/2020 EGD PAST SURGICAL HISTORY OF 2006 bilateral TKA PAST SURGICAL HISTORY OF Right 2002 inguinal hernia PAST SURGICAL HISTORY OF 10/2013 heart valve repair [facility] RPR 1ST INGUN HRNA AGE 5 YRS/> REDUCIBLE 08/25/2020 Hernia repair, inguinal XCAPSL CTRC RMVL INSJ IO LENS PROSTH W/O ECP Right 06/04/2015 Cataract Extraction with PC IOL XCAPSL CTRC RMVL INSJ IO LENS PROSTH W/O ECP 07/02/2015 Cataract Extraction with PC IOL OS FAMILY HISTORY: FAMILY HISTORY Problem Relation Age of Onset Alzheimer's Disease Father other (Other) Daughter brain tumor Allergies Daughter None Son No Ocular Disease No Family History All histories reviewed on this date 04/23/2025: Yes REVIEW OF SYSTEMS: CONSTITUTIONAL: Patient reports no recent fever or weight loss CARDIOVASCULAR: Negative for chest pain. RESPIRATORY: Negative for cough, hemoptysis, wheezing, COPD, dyspnea or shortness of breath All other systems reviewed and are negative other than HPI. PHYSICAL EXAM: constitutional: appears healthy in no acute distress respiratory: normal respiratory motion RADIOLOGY REPORTS REVIEWED: Yes LAB RESULTS REVIEWED: Yes IMAGING STUDIES INDEPENDENTLY REVIEWED: No OLD RECORDS REVIEWED: Yes: Extensive: No ASSESSMENT/PLAN: 1. OAB (overactive bladder) - ICD9: 596.51, ICD10: N32.81 (primary diagnosis) -patient was previously prescribed mirabegron 50 mg and vesicare [address] Jaquez, he only took the medication for one week and stopped due to increased nocturia -instructed to restart both mirabegron and vesicare and take for 6 weeks with follow up after that -if irritative symptom persist he may need to have a discussion about third line therapy -PVR 0 cc 2. BPH with obst (more content not included)... [facility] 04-23-2025 History of Present illness Narrative Maximo Nixon is a 84 year old male who presents today for a follow up for Patient presents with: Established Patient: 8 week follow up/urgency,BPH,OAB CHIEF COMPLAINT & HISTORY OF PRESENT ILLNESS CC: follow up 84 year old male with a history of htn, oab, bph established with Dr. Jaquez presents for OAB medication follow up, he was started on mirabegron 50 mg daily 6 weeks ago for reports of increased frequency and nocturia, he only took the mirabegron for one week and the vesicare 5 mg for one week with no improvement so he stopped, he is getting up 2-3 times per night to void, +tinnitus, DTF 6-7 times. +urgency with some UUI, no use of pads. He has to squeeze his penis to control his urine. Denies dysuria, gross hematuria Drinking flavored water PVR 0 cc Cystoscopy/TRUS 03/20/2025 minimally enlarged lateral lobes, normal median lobes 24 gram prostate s/p greenlight laser 02/2013 Past use of oxybutynin and flomax International Prostate Symptom Score (IPSS) 1. Incomplete emptyin 2. Frequency: 3 3. Intermittency: 0 4. Urgency: 2 5. Weak stream: 5 6. Strainin 7. Nocturia: 2 Total: 17/35 Quality of Life: 6 terrible VITALS: Height 185.4 cm (6' 1), weight 92.5 kg (204 lb). ALLERGIES: Lisinopril MEDICATIONS: Current Outpatient Medications Medication Sig Dispense Refill solifenacin (VESICARE) 5 mg tablet Take 1 tablet by mouth once daily. 30 tablet 3 mirabegron (MYRBETRIQ) 50 mg Tb24 Take 1 tablet by mouth once daily. 30 tablet 3 amLODIPine (NORVASC) 2.5 mg tablet Take 1 tablet by mouth once daily. 90 tablet 3 nutritional supplement/fiber (JUICE PLUS FIBRE ORAL) Take by mouth. Takes eight daily MULTI-VITAMIN ORAL Take by mouth once daily. aspirin, enteric coated (ASPIRIN, ENTERIC COATED) 81 mg EC tablet Take 81 mg by mouth once daily. ascorbic acid (VITAMIN C) 500 mg tablet Take 2 tablets by mouth once daily. 0 No current facility-administered medications for this visit. SOCIAL HISTORY: Social History Tobacco Use Smoking status: Never Smokeless tobacco: Never Vaping Use Vaping status: Never Used Substance Use Topics Alcohol use: No Drug use: Never PAST MEDICAL HISTORY: PAST MEDICAL HISTORY Diagnosis Date Acute gastritis without mention of hemorrhage Arrhythmia Benign prostatic hyperplasia with nocturia BPH associated with nocturia Esophagitis, unspecified Essential hypertension, benign 05/25/2012 Gastroesophageal reflux disease, unspecified whether esophagitis present GERD (gastroesophageal reflux disease) OAB (overactive bladder) Paroxysmal A-fib (HCC) transitory 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, 2012 PND (post-nasal drip) S/P MVR (mitral valve repair) Vasomotor rhinitis PAST SURGICAL HISTORY: PAST SURGICAL HISTORY Procedure Laterality Date COLONOSCOPY FLX DX W/COLLJ SPEC WHEN PFRMD 05/06/11 EGD TRANSORAL BIOPSY SINGLE/MULTIPLE 05/06/11 ESOPHAGOGASTRODUODENOSCOPY TRANSORAL DIAGNOSTIC 11/28/2009 EGD ESOPHAGOGASTRODUODENOSCOPY TRANSORAL DIAGNOSTIC 02/13/2020 EGD PAST SURGICAL HISTORY OF 2007 bilateral TKA PAST SURGICAL HISTORY OF Right 2003 inguinal hernia PAST SURGICAL HISTORY OF 10/2013 heart valve repair [facility] MAIN RPR 1ST INGUN HRNA AGE 5 YRS/> REDUCIBLE 08/25/2020 Hernia repair, inguinal XCAPSL CTRC RMVL INSJ IO LENS PROSTH W/O ECP Right 06/04/2015 Cataract Extraction with PC IOL XCAPSL CTRC RMVL INSJ IO LENS PROSTH W/O ECP 07/02/2015 Cataract Extraction with PC IOL OS FAMILY HISTORY: FAMILY HISTORY Problem Relation Age of Onset Alzheimer's Disease Father other (Other) Daughter brain tumor Allergies Daughter None Son No Ocular Disease No Family History All histories reviewed on this date 04/23/2025: Yes REVIEW OF SYSTEMS: CONSTITUTIONAL: Patient reports no recent fever or weight loss CARDIOVASCULAR: Negative for chest pain. RESPIRATORY: Negative for cough, hemoptysis, wheezing, COPD, dyspnea or shortness of breath All other systems reviewed and are negative other than HPI. PHYSICAL EXAM: constitutional: appears healthy in no acute distress respiratory: normal respiratory motion RADIOLOGY REPORTS REVIEWED: Yes LAB RESULTS REVIEWED: Yes IMAGING STUDIES INDEPENDENTLY REVIEWED: No OLD RECORDS REVIEWED: Yes: Extensive: No ASSESSMENT/PLAN: 1. OAB (overactive bladder) - ICD9: 596.51, ICD10: N32.81 (primary diagnosis) -patient was previously prescribed mirabegron 50 mg and vesicare [address] Jaquez, he only took the medication for one week and stopped due to increased nocturia -instructed to restart both mirabegron and vesicare and take for 6 weeks with follow up after that -if irritative symptom persist he may need to have a discussion about third line therapy -PVR 0 cc 2. BPH with obstruction/lower urinary tract symptoms - ICD9: 600.01, 599.69, ICD10: N40.1, N13.8 -recent cystoscopy negative for occlusive disease -past use of flomax -IPSS 17/35 QOL 6 Patient to schedule follow up in 6 weeks. Stacie Hood APRN.CNP Post void bladder scan completed. 0 ml residual remaining. Results reported to Stacie Hood CNP documented in this encounter [facility] 04-23-2025 Note HNO ID: [id number] Author: MIKEY DACOSTA MA Service: ? Author Type: Newspaper Photographer Type: Progress Notes Filed: 04/23/2025 12:59 Note Text: Post void bladder scan completed. 0 ml residual remaining. Results reported to Stacie Hood CNP [facility] 04-13-2025 Note HNO ID: [id number] Author: ROSA ELENA COHEN, ? Service: ? Author Type: Physician Type: Progress Notes Filed: 04/13/2025 10:41 Note Text: Jeremie Marsh is an 84-year-old male presenting for evaluation of right foot pain and left heel pain. Right Foot Pain: - Persistent pain in the ball of the right foot, initially noted in October 2024. - Pain localized between the toes and on the plantar surface. - Aggravated by walking and prolonged standing; no pain at rest. - Reports a super sharp pain, really bad after walking for a while. Left Heel Pain: - Pain in the left heel, exacerbated by prolonged standing. - Denies pain upon waking or initial standing. 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 30 tablet 3 mirabegron (MYRBETRIQ) 50 mg Tb24 Take 1 tablet by mouth once daily. 30 tablet 3 amLODIPine (NORVASC) 2.5 mg tablet Take 1 tablet by mouth once daily. 90 tablet 3 nutritional supplement/fiber (JUICE PLUS FIBRE ORAL) Take by mouth. Takes eight daily MULTI-VITAMIN ORAL Take by mouth once daily. aspirin, enteric coated (ASPIRIN, ENTERIC COATED) 81 mg EC tablet Take 81 mg by mouth once daily. ascorbic acid (VITAMIN C) 500 mg tablet Take 2 tablets by mouth once daily. 0 No current facility-administered medications for this visit. Family History Problem Relation Age of Onset Alzheimer's Disease Father other (Other) Daughter brain tumor Allergies Daughter None Son No Ocular Disease No Family History Objective There were no vitals taken for this visit. - Cardiovascular: Dorsalis pedis and posterior tibial pulses palpable bilaterally; capillary refill time <5 seconds; skin temperature warm bilaterally; hair growth noted bilaterally. - Skin: No open sores or lesions noted on bilateral feet. - Musculoskeletal: - Left Foot: - Mild tenderness to palpation of the plantar medial tubercle of the calcaneus. - Negative Tinel's sign. - Right Foot: - No tenderness to palpation of the plantar medial calcaneal tubercle. - Positive Berenice's click to the second and third interspace. - Negative Tinel's sign. 1. 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 - Positive Berenice click noted to the right second and third interspace. - Ordered ultrasound to confirm presence and location of neuroma. - Discussed treatment options including corticosteroid injection, radiofrequency ablation, and surgical excision. - Will determine further treatment based on ultrasound findings and severity of pain. 2. Plantar fasciitis of left foot (M72.2) - Mild tenderness to palpation of the plantar medial tubercle of the left calcaneus. - Recommended wearing supportive footwear (Hoka, Sevilla, Asics, New Balance) and continuing use of orthotic inserts. - Educated on stretching exercises: advised to stand arm's length from a wall, place feet in a pigeon-toed position, and perform a forward bend similar to a push-up. - Patient understands and agrees with the treatment plan. Attestation Recording using [employer] software for draft documentation of the visit was discussed with the patient/authorized artist's representative; all questions welcomed and answered. Patient/authorized artist's representative agreed to proceed Rosa Elena Cohen DPM [facility] 04-13-2025 History of Present illness Narrative Jeremie Marsh is an 84-year-old male presenting for evaluation of right foot pain and left heel pain. Right Foot Pain: - Persistent pain in the ball of the right foot, initially noted in October 2024. - Pain localized between the toes and on the plantar surface. - Aggravated by walking and prolonged standing; no pain at rest. - Reports a super sharp pain, really bad after walking for a while. Left Heel Pain: - Pain in the left heel, exacerbated by prolonged standing. - Denies pain upon waking or initial standing. 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 30 tablet 3 mirabegron (MYRBETRIQ) 50 mg Tb24 Take 1 tablet by mouth once daily. 30 tablet 3 amLODIPine (NORVASC) 2.5 mg tablet Take 1 tablet by mouth once daily. 90 tablet 3 nutritional supplement/fiber (JUICE PLUS FIBRE ORAL) Take by mouth. Takes eight daily MULTI-VITAMIN ORAL Take by mouth once daily. aspirin, enteric coated (ASPIRIN, ENTERIC COATED) 81 mg EC tablet Take 81 mg by mouth once daily. ascorbic acid (VITAMIN C) 500 mg tablet Take 2 tablets by mouth once daily. 0 No current facility-administered medications for this visit. Family History Problem Relation Age of Onset Alzheimer's Disease Father other (Other) Daughter brain tumor Allergies Daughter None Son No Ocular Disease No Family History Objective There were no vitals taken for this visit. - Cardiovascular: Dorsalis pedis and posterior tibial pulses palpable bilaterally; capillary refill time <5 seconds; skin temperature warm bilaterally; hair growth noted bilaterally. - Skin: No open sores or lesions noted on bilateral feet. - Musculoskeletal: - Left Foot: - Mild tenderness to palpation of the plantar medial tubercle of the calcaneus. - Negative Tinel's sign. - Right Foot: - No tenderness to palpation of the plantar medial calcaneal tubercle. - Positive Berenice's click to the second and third interspace. - Negative Tinel's sign. 1. 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 - Positive Berenice click noted to the right second and third interspace. - Ordered ultrasound to confirm presence and location of neuroma. - Discussed treatment options including corticosteroid injection, radiofrequency ablation, and surgical excision. - Will determine further treatment based on ultrasound findings and severity of pain. 2. Plantar fasciitis of left foot (M72.2) - Mild tenderness to palpation of the plantar medial tubercle of the left calcaneus. - Recommended wearing supportive footwear (Hoka, Sveilla, Asics, New Balance) and continuing use of orthotic inserts. - Educated on stretching exercises: advised to stand arm's length from a wall, place feet in a pigeon-toed position, and perform a forward bend similar to a push-up. - Patient understands and agrees with the treatment plan. Attestation Recording using [employer] software for draft documentation of the visit was discussed with the patient/authorized artist's representative; all questions welcomed and answered. Patient/authorized artist's representative agreed to proceed Rosa Elena Cohen DPM AMB ROOMING INTAKE FLOWSHEET DATA Pain Pain Level: 10 Pain Location: (bilateral feet) Description: Sharp Duration Amount of Time: (ongoing) Frequency: Continuous Intervention/Comfort measure: Other: See comment (none)\ documented in this encounter [facility] 04-12-2025 Telephone encounter Note PT scheduled for MSK US on 05/23/25 at 2:25 PM at [place]. [facility] 04-12-2025 Miscellaneous Notes PT scheduled for MSK US on 05/23/25 at 2:25 PM at [place]. Visit Type: ANY MSK Visit Length: 45, 50 OR 60 MINUTES Order Name/Protocol: US FOOT RT; [facility]OMA - EVAL 2ND+3RD IMS FOR NEUROMA Preferred Provider: N/A Comment: Please ask if the patient has ever had any prior surgery to their RT 2ND+3RD TOES. If so, upgrade the visit type to an MSK1 and notate the surgical hx in the Appointment Note. Location: Depending on the surgical hx, this patient can have this exam performed at any of our four locations. Slot held: N/A documented in this encounter [facility] 04-12-2025 Telephone encounter Note Visit Type: ANY MSK Visit Length: 45, 50 OR 60 MINUTES Order Name/Protocol: US FOOT RT; [facility] NEUROMA - EVAL 2ND+3RD IMS FOR NEUROMA Preferred Provider: N/A Comment: Please ask if the patient has ever had any prior surgery to their RT 2ND+3RD TOES. If so, upgrade the visit type to an MSK1 and notate the surgical hx in the Appointment Note. Location: Depending on the surgical hx, this patient can have this exam performed at any of our four locations. Slot held: N/A [facility] 04-12-2025 Instructions Rosa Elena Cohen - 04/12/2025 11:24 AM EDT An ultrasound has been scheduled for your right foot. This will help confirm if you have a neuroma between your toes. Continue to use your shoe inserts and wear supportive shoes (such as Hoka, Sevilla, Asics, or New Balance) to help with your foot pain. Perform daily stretching exercises for your foot. Stand about an arm s length from a wall, turn your feet slightly inward (pigeon-toed), and lean forward as if doing a push-up to stretch your arch. If you experience more sharp or significant pain while walking or standing, please contact us as you may need a steroid injection based on the ultrasound findings. documented in this encounter [facility] 04-12-2025 Note HNO ID: [id number] Author: KENISHA ARGUETA MA Service: ? Author Type: Newspaper Photographer Type: Progress Notes Filed: 04/13/2025 10:41 Note Text: AMB ROOMING INTAKE FLOWSHEET DATA Pain Pain Level: 10 Pain Location: (bilateral feet) Description: Sharp Duration Amount of Time: (ongoing) Frequency: Continuous Intervention/Comfort measure: Other: See comment (none) [facility] 04-12-2025 History of Present illness Narrative Radiology Service Progress Note PATIENT NAME: Maximo Nixon DATE OF SERVICE: April 12, 2025 TIME: 10:17 AM PATIENT IDENTITY VERIFICATION COMPLETED USING TWO (2) IDENTIFIERS: Name and Date of confirmed by patient verbally. FALL SCREENING: Has the patient had 2 falls in the last year or 1 fall with injury or currently using an Ambulatory Assistive Device (Walker, Cane, Wheelchair, Crutches, etc.)? No PATIENT GENDER DATA: Assigned male at PATIENT RELEVANT IMPLANT DATA REVIEWED: Yes PATIENT PRESENTS WITH AN IMPLANTABLE OR ATTACHED WING COVERER: No RADIOLOGY DEPARTMENT: General X-ray: Exam(s) Completed: Spine X-Ray(s): Cervical AP / LAT / OBL odontoid PERIPHERAL IV DATA: Not applicable SIGNED BY: RT Khushi(Mercedes) April 12, 2025 10:17 AM documented in this encounter [facility] 04-12-2025 Note HNO ID: [id number] Author: TEQUILA DELONG RT(Mercedes) Service: ? Author Type: Seam Press Operator Type: Progress Notes Filed: 04/12/2025 10:32 Note Text: Radiology Service Progress Note PATIENT NAME: Maximo Nixon DATE OF SERVICE: April 12, 2025 TIME: 10:17 AM PATIENT IDENTITY VERIFICATION COMPLETED USING TWO (2) IDENTIFIERS: Name and Date of confirmed by patient verbally. FALL SCREENING: Has the patient had 2 falls in the last year or 1 fall with injury or currently using an Ambulatory Assistive Device (Walker, Cane, Wheelchair, Crutches, etc.)? No PATIENT GENDER DATA: Assigned male at PATIENT RELEVANT IMPLANT DATA REVIEWED: Yes PATIENT PRESENTS WITH AN IMPLANTABLE OR ATTACHED WING COVERER: No RADIOLOGY DEPARTMENT: General X-ray: Exam(s) Completed: Spine X-Ray(s): Cervical AP / LAT / OBL odontoid PERIPHERAL IV DATA: Not applicable SIGNED BY: RT Khushi(R) April 12, 2025 10:17 AM [facility] 04-12-2025 History of Present illness Narrative Radiology Service Progress Note PATIENT NAME: Maximo Nixon DATE OF SERVICE: April 12, 2025 TIME: 9:50 AM PATIENT IDENTITY VERIFICATION COMPLETED USING TWO (2) IDENTIFIERS: Name and Date of confirmed by patient verbally. FALL SCREENING: Has the patient had 2 falls in the last year or 1 fall with injury or currently using an Ambulatory Assistive Device (Walker, Cane, Wheelchair, Crutches, etc.)? No PATIENT GENDER DATA: Assigned male at PATIENT RELEVANT IMPLANT DATA REVIEWED: Yes PATIENT PRESENTS WITH AN IMPLANTABLE OR ATTACHED WING COVERER: No RADIOLOGY DEPARTMENT: General X-ray: Exam(s) Completed: Lower Extremity X-Ray(s): Foot, Bilateral PERIPHERAL IV DATA: Not applicable SIGNED BY: RT Khushi(Mercedes) April 12, 2025 9:50 AM documented in this encounter [facility] 04-12-2025 Note HNO ID: [id number] Author: TEQUILA DELONG RT(R) Service: ? Author Type: Seam Press Operator Type: Progress Notes Filed: 04/12/2025 10:03 Note Text: Radiology Service Progress Note PATIENT NAME: Maximo Nixon DATE OF SERVICE: April 12, 2025 TIME: 9:50 AM PATIENT IDENTITY VERIFICATION COMPLETED USING TWO (2) IDENTIFIERS: Name and Date of confirmed by patient verbally. FALL SCREENING: Has the patient had 2 falls in the last year or 1 fall with injury or currently using an Ambulatory Assistive Device (Walker, Cane, Wheelchair, Crutches, etc.)? No PATIENT GENDER DATA: Assigned male at PATIENT RELEVANT IMPLANT DATA REVIEWED: Yes PATIENT PRESENTS WITH AN IMPLANTABLE OR ATTACHED WING COVERER: No RADIOLOGY DEPARTMENT: General X-ray: Exam(s) Completed: Lower Extremity X-Ray(s): Foot, Bilateral PERIPHERAL IV DATA: Not applicable SIGNED BY: RT Khushi(R) April 12, 2025 9:50 AM [facility] 04-09-2025 Telephone encounter Note Patient scheduled for this tuesday [facility] 04-09-2025 Miscellaneous Notes Patient scheduled for this tuesday Patient is calling wanting to know if there were any appointments open today ? patient is c/o right foot pain 10/10 nerve pain. Patient has been seen for this in past. Katty Hines LPN documented in this encounter [facility] 04-09-2025 Telephone encounter Note Patient is calling wanting to know if there were any appointments open today ? patient is c/o right foot pain 10/10 nerve pain. Patient has been seen for this in past. Katty Hines LPN [facility] 04-03-2025 Telephone encounter Note Called patient and made aware that new script had been written. [facility] 04-03-2025 Miscellaneous Notes Called patient and made aware that new script had been written. Patient calls with complaints of frequent urination. Patient was seen on 03/20 and was prescribed Myrbetriq. Patient was informed that the medication can take up to a month to get effect. Patient states that since taking it he feels as if he is going to the restroom more. He is requesting a different medication. Correct pharmacy is selected. Please review and advise. documented in this encounter [facility] 03-27-2025 Telephone encounter Note Patient calls with complaints of frequent urination. Patient was seen on 03/20 and was prescribed Myrbetriq. Patient was informed that the medication can take up to a month to get effect. Patient states that since taking it he feels as if he is going to the restroom more. He is requesting a different medication. Correct pharmacy is selected. Please review and advise. [facility] 03-20-2025 Instructions Narciso Jaquez MD - 03/20/2025 10:02 AM EDT AFTER YOUR CYSTOSCOPY You have undergone a cystoscopy: Narciso Jaquez MD has inserted a telescope into your bladder through your urethra. WHAT TO EXPECT -Possible burning during urination; and/or -Blood tinged urine. - More urgency for 1-2 days These normally subside within 24-48 hours and with increased fluid intake. WHAT TO DO: -Resume normal activities and medication. -Increase your fluid intake for the next day. MEDICATION: -If an antibiotic is prescribed, take it as directed until ALL the medication is gone. WHEN TO CALL THE DOCTOR: -If you have a fever above 100* Fahrenheit; -If you are unable to urinate; -If large blood clots form in your urine; and/or -If your urine becomes bloody and does not clear with increased fluids. PHONE NUMBERS: [phone] [place] [phone] [place] [phone] [place] [address] [place] documented in this encounter [facility] 03-20-2025 Note HNO ID: [id number] Author: NARCISO JAQUEZ MD Service: ? Author Type: Physician Type: Progress Notes Filed: 03/20/2025 10:17 Note Text: COUNT INCLUDES THE [facility] UROLOGY PROCEDURE NOTE [facility] ([facility]) FLEXIBLE CYSTOURETHROSCOPY AND TRUS UROLOGY OUTPATIENT PROCEDURE NOTE UNIVERSAL PROTOCOL AND SAFETY CHECKLISTUNIVERSAL PROTOCOL / SAFETY CHECKLIST Procedure to be Performed: Cysto/TRUS Referral by: Humberto Dasilva APRN.CHILD CARE GROUP LEADER.DNP Indication: Bladder overactivity Sign In: A Moment of CARE was completed. Personnel directly involved with the procedure wore the appropriate PPE (Personal Protective Equipment). Patient/Surrogate Stated/Verified: PATIENT VERIFIED(optional for EMERGENT procedures): Patient name, Date of , Relevant allergies and The intended procedure Time Out Communication: Intended patient and procedure match the source documents. Consent documented and matches the intended procedure. Sign Out: SIGN OUT (optional for EMERGENT procedures): All specimen containers correctly labeled. PHYSICIAN NOTE: FLEXIBLE CYSTOURETHROSCOPY AND TRANSRECTAL ULTRASOUND PROCEDURE DATE: March 20, 2025 FINDINGS Urethra: Normal Sphincter: Normal / Coapted Prostate: Minimally enlarged lateral Lobes /normal median Lobe Bladder Neck: Patent Urothelium: normal appearing, no evidence of tumor, no erythema, no foreign body Trabeculation: Yes Inflammation: No Diverticulum: Yes, in fact diverticulum is directly at the bladder neck Ureteral Orifices: normal appearing, orthotopic position, clear efflux bilaterally Trigone: normal appearing Procedure: Flexible cystoscopy and transrectal ultrasound Anesthesia: Lidocaine Gel Procedure Details: In the cystoscopy suite, the patient was placed in the supine position, prepped, and draped in the usual manner. Lidocaine gel was placed per urethra for local anasthesia. No lazarus-procedural antibiotics were given. Cystourethroscopy was performed using a flexible scope. Sterile technique was maintained throughout. The urethra, prostate, and bladder were inspected in their entirety. Specific findings from the procedure are detailed in the corresponding section of this note. The cystoscope was carefully removed. The patient was placed in the lateral decubitus position. Digital rectal exam was normal. The ultrasound probe was placed into the rectum and the prostate visualized. The prostate was visualized in sagittal and transverse planes and no hypoechoic lesion identified. The total prostate volume was 24 gm Complications: None Estimated Blood Loss: None Preoperative diagnosis: Bladder overactivity Postoperative diagnosis: Same Disposition / Plan: - I discussed the potential etiologies of his urinary symptoms which sound most consistent with an overactive bladder. I do not believe he has a severe degree of obstruction at this time. - Will focus on bladder relaxation. Patient states that he tried trospium for about 1 week and did not find it to be effective. I reviewed his medications in detail. Patient does not recall taking Myrbetriq in 2022, when prescribed by Paul Chatterjee PA-C. Patient was recommended to be seen in follow-up after 3 months to review the medication effects but he decided not to return since he was not taking any medication. - At this time we will begin trial of Myrbetriq 50 mg daily. Prescription provided. If this medication is ineffective, would pursue UDS for further workup. Reevaluate in 6 weeks Narciso Jaquez MD, MS Associate Staff [facility] 03-20-2025 History of Present illness Narrative Images from the original note were not included. [facility] UR[facility] PROCEDURE NOTE [facility] ([facility]) FLEXIBLE CYSTOURETHROSCOPY AND TRUS UROLOGY OUTPATIENT PROCEDURE NOTE UNIVERSAL PROTOCOL AND SAFETY CHECKLISTUNIVERSAL PROTOCOL / SAFETY CHECKLIST Procedure to be Performed: Cysto/TRUS Referral by: Humberto Dasilva APRN.CHILD CARE GROUP LEADER.DNP Indication: Bladder overactivity Sign In: A Moment of CARE was completed. Personnel directly involved with the procedure wore the appropriate PPE (Personal Protective Equipment). Patient/Surrogate Stated/Verified: PATIENT VERIFIED(optional for EMERGENT procedures): Patient name, Date of , Relevant allergies and The intended procedure Time Out Communication: Intended patient and procedure match the source documents. Consent documented and matches the intended procedure. Sign Out: SIGN OUT (optional for EMERGENT procedures): All specimen containers correctly labeled. PHYSICIAN NOTE: FLEXIBLE CYSTOURETHROSCOPY AND TRANSRECTAL ULTRASOUND PROCEDURE DATE: March 20, 2025 FINDINGS Urethra: Normal Sphincter: Normal / Coapted Prostate: Minimally enlarged lateral Lobes /normal median Lobe Bladder Neck: Patent Urothelium: normal appearing, no evidence of tumor, no erythema, no foreign body Trabeculation: Yes Inflammation: No Diverticulum: Yes, in fact diverticulum is directly at the bladder neck Ureteral Orifices: normal appearing, orthotopic position, clear efflux bilaterally Trigone: normal appearing Procedure: Flexible cystoscopy and transrectal ultrasound Anesthesia: Lidocaine Gel Procedure Details: In the cystoscopy suite, the patient was placed in the supine position, prepped, and draped in the usual manner. Lidocaine gel was placed per urethra for local anasthesia. No lazarus-procedural antibiotics were given. Cystourethroscopy was performed using a flexible scope. Sterile technique was maintained throughout. The urethra, prostate, and bladder were inspected in their entirety. Specific findings from the procedure are detailed in the corresponding section of this note. The cystoscope was carefully removed. The patient was placed in the lateral decubitus position. Digital rectal exam was normal. The ultrasound probe was placed into the rectum and the prostate visualized. The prostate was visualized in sagittal and transverse planes and no hypoechoic lesion identified. The total prostate volume was 24 gm Complications: None Estimated Blood Loss: None Preoperative diagnosis: Bladder overactivity Postoperative diagnosis: Same Disposition / Plan: - I discussed the potential etiologies of his urinary symptoms which sound most consistent with an overactive bladder. I do not believe he has a severe degree of obstruction at this time. - Will focus on bladder relaxation. Patient states that he tried trospium for about 1 week and did not find it to be effective. I reviewed his medications in detail. Patient does not recall taking Myrbetriq in 2022, when prescribed by Paul Chatterjee PA-C. Patient was recommended to be seen in follow-up after 3 months to review the medication effects but he decided not to return since he was not taking any medication. - At this time we will begin trial of Myrbetriq 50 mg daily. Prescription provided. If this medication is ineffective, would pursue UDS for further workup. Reevaluate in 6 weeks Narciso Jaquez MD, MS Associate Staff [facility] [place] [facility] documented in this encounter [facility] 03-15-2025 Note HNO ID: [id number] Author: DIEGO HUFFMAN MD Service: ? Author Type: Physician Type: Progress Notes Filed: 03/15/2025 17:14 Note Text: Patient presents with: 6 Month Exam HPI: Patient presents today for office visit for follow up. HTN: Does not monitor BP at home. Does not miss any doses of his Amlodipine. Denies chest pain and shortness of breath. Denies headaches. Intermittent lightheadedness. Not often. Denies palpitations and syncope. Denies edema. Continues with right foot pain. Follows with Dr. Cohen. Dr Jaquez. is seeing him for his urinary issues. Getting cystoscopy soon. Latest Ref Rng 02/27/2025 03/03/2025 03/08/2025 WBC 3.70 - 11.00 k/uL 4.53 4.08 RBC 4.20 - 6.00 m/uL 5.62 5.21 Hemoglobin 13.0 - 17.0 g/dL 17.6 (H) 16.7 Hematocrit 39.0 - 51.0 % 51.3 (H) 48.0 MCV 80.0 - 100.0 fL 91.3 92.1 MCH 26.0 - 34.0 pg 31.3 32.1 MCHC 30.5 - 36.0 g/dL 34.3 34.8 RDW-CV 11.5 - 15.0 % 13.2 13.2 Platelet Count 150 - 400 k/uL 189 197 MPV 9.0 - 12.7 fL 9.1 9.1 Neut% % 53.2 52.7 Abs Neut (ANC) 1.45 - 7.50 k/uL 2.41 2.15 Lymph% % 30.7 30.9 Abs Lymph 1.00 - 4.00 k/uL 1.39 1.26 [place]% % 12.4 12.3 Abs [place] <0.87 k/uL 0.56 0.50 Eosin% % 2.4 2.7 Abs Eosin <0.46 k/uL 0.11 0.11 Baso% % 0.9 1.2 Abs Baso <0.11 k/uL 0.04 0.05 Immature Gran % % 0.4 0.2 IMMATURE GRANS (ABS) <0.10 k/uL <0.03 <0.03 NRBC /100 WBC 0.0 0.0 Absolute nRBC <0.01 k/uL <0.01 <0.01 DTYPE Auto Auto Protein, Total 6.3 - 8.0 g/dL 6.8 Albumin 3.9 - 4.9 g/dL 4.2 Calcium 8.5 - 10.2 mg/dL 9.3 Bilirubin, Total 0.2 - 1.3 mg/dL 0.8 Alkaline Phosphatase 38 - 113 U/L 65 AST 14 - 40 U/L 20 ALT 10 - 54 U/L 12 Glucose 74 - 99 mg/dL 96 BUN 9 - 24 mg/dL 17 Creatinine 0.73 - 1.22 mg/dL 1.09 Sodium 136 - 144 mmol/L 139 Potassium 3.7 - 5.1 mmol/L 4.3 Chloride 98 - 107 mmol/L 105 CO2 22 - 30 mmol/L 28 Anion Gap 8 - 15 mmol/L 6 (L) eGFR >=60 mL/min/1.73m? 68 Cholesterol, Total <200 mg/dL 107 Triglyceride <150 mg/dL 50 HDL Cholesterol >39 mg/dL 56 Non HDL Cholesterol <130 mg/dL 51 Fasting Time hrs 12 VLDL Cholesterol <30 mg/dL 10 TC:HDL Ratio <5.10 1.91 LDL Cholesterol <100 mg/dL 41 LDL:HDL Ratio <2.54 0.73 Strep A (POCT) Negative Negative Procedural Control Valid Legend: (H) High (L) Low MEDICATIONS: Current Outpatient Medications Medication Sig amLODIPine (NORVASC) 2.5 mg tablet Take 1 tablet by mouth once daily. nutritional supplement/fiber (JUICE PLUS FIBRE ORAL) Take by mouth. Takes eight daily MULTI-VITAMIN ORAL Take by mouth once daily. aspirin, enteric coated (ASPIRIN, ENTERIC COATED) 81 mg EC tablet Take 81 mg by mouth once daily. ascorbic acid (VITAMIN C) 500 mg tablet Take 2 tablets by mouth once daily. No current facility-administered medications for this visit. 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, 2012 PND (post-nasal drip) S/P MVR (mitral valve repair) Vasomotor rhinitis PAST SURGICAL HISTORY Procedure Laterality Date COLONOSCOPY FLX DX W/COLLJ SPEC WHEN PFRMD 05/06/11 EGD TRANSORAL BIOPSY SINGLE/MULTIPLE 05/06/11 ESOPHAGOGASTRODUODENOSCOPY TRANSORAL DIAGNOSTIC 11/28/2009 EGD ESOPHAGOGASTRODUODENOSCOPY TRANSORAL DIAGNOSTIC 02/13/2020 EGD PAST SURGICAL HISTORY OF 2007 bilateral TKA PAST SURGICAL HISTORY OF Right 2002 inguinal hernia PAST SURGICAL HISTORY OF 10/2013 heart valve repair [facility] MA[facility] RPR 1ST INGUN HRNA AGE 7 YRS/> REDUCIBLE 08/25/2020 Hernia repair, inguinal XCAPSL CTRC RMVL INSJ IO LENS PROSTH W/O ECP Right 06/04/2015 Cataract Extraction with PC IOL XCAPSL CTRC RMVL INSJ IO LENS PROSTH W/O ECP 07/02/2015 Cataract Extraction with PC IOL OS FAMILY HISTORY Problem Relation Age of Onset Alzheimer's Disease Father other (Other) Daughter brain tumor Allergies Daughter None Son No Ocular Disease No Family History Social History Tobacco Use Smoking status: Never Smokeless tobacco: Never Vaping Use Vaping status: Never Used Substance Use Topics Alcohol use: No Drug use: Never Reviewed current medications, allergies, past medical history, surgical history, family history and social history today. REVIEW OF SYSTEMS No falls or gi issues. All other reviewed and negative other than HPI. HEALTH MAINTENANCE: Reviewed health maintenance issues today and recommended the following in detail. Advance Directive Discussion due on 11/28/2024 Did get his shingles shot. VITALS: BP 131/74 Pulse 67 Ht 185.4 cm (6' 1) Wt (more content not included)... [facility] 03-15-2025 History of Present illness Narrative Patient presents with: 6 Month Exam HPI: Patient presents today for office visit for follow up. HTN: Does not monitor BP at home. Does not miss any doses of his Amlodipine. Denies chest pain and shortness of breath. Denies headaches. Intermittent lightheadedness. Not often. Denies palpitations and syncope. Denies edema. Continues with right foot pain. Follows with Dr. Cohen. Dr Jaquez. is seeing him for his urinary issues. Getting cystoscopy soon. Latest Ref Rng 02/27/2025 03/03/2025 03/08/2025 WBC 3.70 - 11.00 k/uL 4.53 4.08 RBC 4.20 - 6.00 m/uL 5.62 5.21 Hemoglobin 13.0 - 17.0 g/dL 17.6 (H) 16.7 Hematocrit 39.0 - 51.0 % 51.3 (H) 48.0 MCV 80.0 - 100.0 fL 91.3 92.1 MCH 26.0 - 34.0 pg 31.3 32.1 MCHC 30.5 - 36.0 g/dL 34.3 34.8 RDW-CV 11.5 - 15.0 % 13.2 13.2 Platelet Count 150 - 400 k/uL 189 197 MPV 9.0 - 12.7 fL 9.1 9.1 Neut% % 53.2 52.7 Abs Neut (ANC) 1.45 - 7.50 k/uL 2.41 2.15 Lymph% % 30.7 30.9 Abs Lymph 1.00 - 4.00 k/uL 1.39 1.26 [place]% % 12.4 12.3 Abs [place] <0.87 k/uL 0.56 0.50 Eosin% % 2.4 2.7 Abs Eosin <0.46 k/uL 0.11 0.11 Baso% % 0.9 1.2 Abs Baso <0.11 k/uL 0.04 0.05 Immature Gran % % 0.4 0.2 IMMATURE GRANS (ABS) <0.10 k/uL <0.03 <0.03 NRBC /100 WBC 0.0 0.0 Absolute nRBC <0.01 k/uL <0.01 <0.01 DTYPE Auto Auto Protein, Total 6.3 - 8.0 g/dL 6.8 Albumin 3.9 - 4.9 g/dL 4.2 Calcium 8.5 - 10.2 mg/dL 9.3 Bilirubin, Total 0.2 - 1.3 mg/dL 0.8 Alkaline Phosphatase 38 - 113 U/L 65 AST 14 - 40 U/L 20 ALT 10 - 54 U/L 12 Glucose 74 - 99 mg/dL 96 BUN 9 - 24 mg/dL 17 Creatinine 0.73 - 1.22 mg/dL 1.09 Sodium 136 - 144 mmol/L 139 Potassium 3.7 - 5.1 mmol/L 4.3 Chloride 98 - 107 mmol/L 105 CO2 22 - 30 mmol/L 28 Anion Gap 8 - 15 mmol/L 6 (L) eGFR >=60 mL/min/1.73m 68 Cholesterol, Total <200 mg/dL 107 Triglyceride <150 mg/dL 50 HDL Cholesterol >39 mg/dL 56 Non HDL Cholesterol <130 mg/dL 51 Fasting Time hrs 12 VLDL Cholesterol <30 mg/dL 10 TC:HDL Ratio <5.10 1.91 LDL Cholesterol <100 mg/dL 41 LDL:HDL Ratio <2.54 0.73 Strep A (POCT) Negative Negative Procedural Control Valid Legend: (H) High (L) Low MEDICATIONS: Current Outpatient Medications Medication Sig amLODIPine (NORVASC) 2.5 mg tablet Take 1 tablet by mouth once daily. nutritional supplement/fiber (JUICE PLUS FIBRE ORAL) Take by mouth. Takes eight daily MULTI-VITAMIN ORAL Take by mouth once daily. aspirin, enteric coated (ASPIRIN, ENTERIC COATED) 81 mg EC tablet Take 81 mg by mouth once daily. ascorbic acid (VITAMIN C) 500 mg tablet Take 2 tablets by mouth once daily. No current facility-administered medications for this visit. 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, 2012 PND (post-nasal drip) S/P MVR (mitral valve repair) Vasomotor rhinitis PAST SURGICAL HISTORY Procedure Laterality Date COLONOSCOPY FLX DX W/COLLJ SPEC WHEN PFRMD 05/06/11 EGD TRANSORAL BIOPSY SINGLE/MULTIPLE 05/06/11 ESOPHAGOGASTRODUODENOSCOPY TRANSORAL DIAGNOSTIC 11/28/2009 EGD ESOPHAGOGASTRODUODENOSCOPY TRANSORAL DIAGNOSTIC 02/13/2020 EGD PAST SURGICAL HISTORY OF 2007 bilateral TKA PAST SURGICAL HISTORY OF Right 2003 inguinal hernia PAST SURGICAL HISTORY OF 10/2013 heart valve repair [facility] MAIN RPR 1ST INGUN HRNA AGE 7 YRS/> REDUCIBLE 08/25/2020 Hernia repair, inguinal XCAPSL CTRC RMVL INSJ IO LENS PROSTH W/O ECP Right 06/04/2015 Cataract Extraction with PC IOL XCAPSL CTRC RMVL INSJ IO LENS PROSTH W/O ECP 07/02/2015 Cataract Extraction with PC IOL OS FAMILY HISTORY Problem Relation Age of Onset Alzheimer's Disease Father other (Other) Daughter brain tumor Allergies Daughter None Son No Ocular Disease No Family History Social History Tobacco Use Smoking status: Never Smokeless tobacco: Never Vaping Use Vaping status: Never Used Substance Use Topics Alcohol use: No Drug use: Never Reviewed current medications, allergies, past medical history, surgical history, family history and social history today. REVIEW OF SYSTEMS No falls or gi issues. All other reviewed and negative other than HPI. HEALTH MAINTENANCE: Reviewed health maintenance issues today and recommended the following in detail. Advance Directive Discussion due on 11/28/2024 Did get his shingles shot. VITALS: BP 131/74 Pulse 67 Ht 185.4 cm (6' 1) Wt 93.4 kg (206 lb) BMI 27.18 kg/m Last 4 Encounter Wt Readings: Date: Wt: 03/03/2025 93.1 kg (205 lb 4 oz) 02/18/2025 92.5 kg (204 lb) 01/22/2025 93.1 kg (205 lb 4 oz) 01/07/2025 93.4 kg (206 lb) PHYSICAL EXAMINATION: General appearance: Well appearing, alert, in no acute distress, well-hydrated, well nourished. Skin: Skin color, texture, turgor normal, no suspicious rashes or lesions Head: Normocephalic, no masses, lesions, tenderness or abnormalities Lungs: Lungs clear to auscultation. No wheezing, rhonchi, rales Heart: RRR without murmur, gallop, or rubs. No ectopy Abdomen: Normal abdominal exam, Abdomen soft, non-tender. Bowel sounds normal. No masses, organomegaly Extremities: No deformities, edema, skin discoloration, clubbing or cyanosis. Good capillary refill. ASSESSMENT/PLAN: 1. Essential hypertension, benign - ICD9: 401.1, ICD10: I10 (primary diagnosis) - Controlled - Continue current medications 2. History of atrial fibrillation - ICD9: V12.59, ICD10: Z86.79 - doing well. 3. Benign prostatic hyperplasia with nocturia - ICD9: 600.01, 788.43, ICD10: N40.1, R35.1 - per urology. 4. 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 5. Gastroesophageal reflux disease, unspecified whether esophagitis present - ICD9: 530.81, ICD10: K21.9 - doing well., 6. Encounter for immunization - ICD9: V03.89, ICD10: Z23 - [employer] COVID-19 VACCINE AGE 12+ YR (COMIRNATY) Discussed risks and benefits of new medication with the patient. Advised them to call if any side effects or questions. Diego Huffman MD documented in this encounter [facility] 03-08-2025 Telephone encounter Note Pt notified. Sugar Slade MA [facility] 03-08-2025 Miscellaneous Notes Pt notified. Sugar Slade MA ----- Message from Diego Huffman MD sent at 03/08/2025 10:52 AM EDT ----- Repeat blood count is better. documented in this encounter [facility] 03-08-2025 Telephone encounter Note ----- Message from Diego Huffman MD sent at 03/08/2025 10:52 AM EDT ----- Repeat blood count is better. [facility] 03-03-2025 Note HNO ID: [id number] Author: AMANDA ZAVALA APRN.CHILD CARE GROUP LEADER Service: ? Author Type: Nurse Practitioner Type: Progress Notes Filed: 03/03/2025 14:54 Note Text: [facility] Subjective Maximo Nioxn is a 84 year old male. Patient presents with: Sore Throat: X 1 week, nose was bleeding but has not done so in 2 days Patient came in with complaints of sore throat. Patient says it worse when he swallows. Patient says he also has been getting very nauseous. Patient's been eating a lot of Vicks VapoRub cough drops. Patient says when he stopped using the cough drops with nosebleeds did not let up. Patient denies any other symptoms. The history is provided by the patient. No second language tutor was used. Sore Throat Review of Systems Constitutional: Negative. HENT: Positive for sore throat. Objective BP 131/81 (BP Site: Left Arm, BP Position: Sitting) Pulse 68 Temp 36.3 ?C (97.3 ?F) Resp 18 Wt 93.1 kg (205 lb 4 oz) SpO2 96% BMI 27.08 kg/m? Physical Exam Constitutional: Appearance: Normal appearance. HENT: Right Ear: Tympanic membrane, ear canal and external ear normal. Left Ear: Tympanic membrane, ear canal and external ear normal. Nose: Nose normal. Mouth/Throat: Mouth: Mucous membranes are moist. Pharynx: Posterior oropharyngeal erythema present. Eyes: Pupils: Pupils are equal, round, and reactive to light. Cardiovascular: Rate and Rhythm: Normal rate and regular rhythm. Heart sounds: Normal heart sounds. Pulmonary: Effort: Pulmonary effort is normal. Breath sounds: Normal breath sounds. Neurological: Mental Status: He is alert. PAST MEDICAL HISTORY Diagnosis Date Acute gastritis without mention of hemorrhage Arrhythmia Benign prostatic hyperplasia with nocturia BPH associated with nocturia Esophagitis, unspecified Essential hypertension, benign 05/25/2012 Gastroesophageal reflux disease, unspecified whether esophagitis present GERD (gastroesophageal reflux disease) OAB (overactive bladder) Paroxysmal A-fib (HCC) transitory 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, 2012 PND (post-nasal drip) S/P MVR (mitral valve repair) Vasomotor rhinitis PAST SURGICAL HISTORY Procedure Laterality Date COLONOSCOPY FLX DX W/COLLJ SPEC WHEN PFRMD 05/06/11 EGD TRANSORAL BIOPSY SINGLE/MULTIPLE 05/06/11 ESOPHAGOGASTRODUODENOSCOPY TRANSORAL DIAGNOSTIC 11/28/2009 EGD ESOPHAGOGASTRODUODENOSCOPY TRANSORAL DIAGNOSTIC 02/13/2020 EGD PAST SURGICAL HISTORY OF 2007 bilateral TKA PAST SURGICAL HISTORY OF Right 2003 inguinal hernia PAST SURGICAL HISTORY OF 10/2013 heart valve repair [facility] RPR 1ST INGUN HRNA AGE 5 YRS/> REDUCIBLE 08/25/2020 Hernia repair, inguinal XCAPSL CTRC RMVL INSJ IO LENS PROSTH W/O ECP Right 06/04/2015 Cataract Extraction with PC IOL XCAPSL CTRC RMVL INSJ IO LENS PROSTH W/O ECP 07/02/2015 Cataract Extraction with PC IOL OS ALLERGIES Lisinopril MEDICATIONS amLODIPine (NORVASC) 2.5 mg tablet Take 1 tablet by mouth once daily. nutritional supplement/fiber (JUICE PLUS FIBRE ORAL) Take by mouth. Takes eight daily MULTI-VITAMIN ORAL Take by mouth once daily. aspirin, enteric coated (ASPIRIN, ENTERIC COATED) 81 mg EC tablet Take 81 mg by mouth once daily. ascorbic acid (VITAMIN C) 500 mg tablet Take 2 tablets by mouth once daily. Trospium (SANCTURA SR) 60 mg cp24 Take 1 capsule by mouth once daily. Take on an empty stomach (Patient not taking: Reported on 03/03/2025) FAMILY HISTORY Problem Relation Age of Onset Alzheimer's Disease Father other (Other) Daughter brain tumor Allergies Daughter None Son No Ocular Disease No Family History Social History Tobacco Use Smoking status: Never Smokeless tobacco: Never Vaping Use Vaping status: Never Used Substance Use Topics Alcohol use: No Drug use: Never {ASSESSMENT/PLAN: 1. Sore throat - ICD9: 462, ICD10: J02.9 - Group A strep molecular testing negative - Discussed supportive care treatment with fluids, rest and analgesia. - Contagious dz precautions discussed- including considered contagious until on antibiotics for 24 hours - STREP A MOLECULAR (POC) At this time patient was suggested to follow-up with primary care to talk about possible manager legal due to chronic sinus congestion and drainage. Patient says he has had drainage for many years. This could be a cause for the sore throat due to season changes. Patient agreeable to following up with PCP Amanda Zavala APRN.CHILD CARE GROUP LEADER MDM Procedures [facility] 03-03-2025 History of Present illness Narrative [facility] Subjective Maximo Nixon is a 84 year old male. Patient presents with: Sore Throat: X 1 week, nose was bleeding but has not done so in 2 days Patient came in with complaints of sore throat. Patient says it worse when he swallows. Patient says he also has been getting very nauseous. Patient's been eating a lot of Vicks VapoRub cough drops. Patient says when he stopped using the cough drops with nosebleeds did not let up. Patient denies any other symptoms. The history is provided by the patient. No second language tutor was used. Sore Throat Review of Systems Constitutional: Negative. HENT: Positive for sore throat. Objective BP 131/81 (BP Site: Left Arm, BP Position: Sitting) Pulse 68 Temp 36.3 C (97.3 F) Resp 18 Wt 93.1 kg (205 lb 4 oz) SpO2 96% BMI 27.08 kg/m Physical Exam Constitutional: Appearance: Normal appearance. HENT: Right Ear: Tympanic membrane, ear canal and external ear normal. Left Ear: Tympanic membrane, ear canal and external ear normal. Nose: Nose normal. Mouth/Throat: Mouth: Mucous membranes are moist. Pharynx: Posterior oropharyngeal erythema present. Eyes: Pupils: Pupils are equal, round, and reactive to light. Cardiovascular: Rate and Rhythm: Normal rate and regular rhythm. Heart sounds: Normal heart sounds. Pulmonary: Effort: Pulmonary effort is normal. Breath sounds: Normal breath sounds. Neurological: Mental Status: He is alert. PAST MEDICAL HISTORY Diagnosis Date Acute gastritis without mention of hemorrhage Arrhythmia Benign prostatic hyperplasia with nocturia BPH associated with nocturia Esophagitis, unspecified Essential hypertension, benign 05/25/2012 Gastroesophageal reflux disease, unspecified whether esophagitis present GERD (gastroesophageal reflux disease) OAB (overactive bladder) Paroxysmal A-fib (HCC) transitory 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, 2012 PND (post-nasal drip) S/P MVR (mitral valve repair) Vasomotor rhinitis PAST SURGICAL HISTORY Procedure Laterality Date COLONOSCOPY FLX DX W/COLLJ SPEC WHEN PFRMD 05/06/11 EGD TRANSORAL BIOPSY SINGLE/MULTIPLE 05/06/11 ESOPHAGOGASTRODUODENOSCOPY TRANSORAL DIAGNOSTIC 11/28/2009 EGD ESOPHAGOGASTRODUODENOSCOPY TRANSORAL DIAGNOSTIC 02/13/2020 EGD PAST SURGICAL HISTORY OF 2007 bilateral TKA PAST SURGICAL HISTORY OF Right 2003 inguinal hernia PAST SURGICAL HISTORY OF 10/2013 heart valve repair [facility] MAIN RPR 1ST INGUN HRNA AGE 5 YRS/> REDUCIBLE 08/25/2020 Hernia repair, inguinal XCAPSL CTRC RMVL INSJ IO LENS PROSTH W/O ECP Right 06/04/2015 Cataract Extraction with PC IOL XCAPSL CTRC RMVL INSJ IO LENS PROSTH W/O ECP 07/02/2015 Cataract Extraction with PC IOL OS ALLERGIES Lisinopril MEDICATIONS amLODIPine (NORVASC) 2.5 mg tablet Take 1 tablet by mouth once daily. nutritional supplement/fiber (JUICE PLUS FIBRE ORAL) Take by mouth. Takes eight daily MULTI-VITAMIN ORAL Take by mouth once daily. aspirin, enteric coated (ASPIRIN, ENTERIC COATED) 81 mg EC tablet Take 81 mg by mouth once daily. ascorbic acid (VITAMIN C) 500 mg tablet Take 2 tablets by mouth once daily. Trospium (SANCTURA SR) 60 mg cp24 Take 1 capsule by mouth once daily. Take on an empty stomach (Patient not taking: Reported on 03/03/2025) FAMILY HISTORY Problem Relation Age of Onset Alzheimer's Disease Father other (Other) Daughter brain tumor Allergies Daughter None Son No Ocular Disease No Family History Social History Tobacco Use Smoking status: Never Smokeless tobacco: Never Vaping Use Vaping status: Never Used Substance Use Topics Alcohol use: No Drug use: Never {ASSESSMENT/PLAN: 1. Sore throat - ICD9: 462, ICD10: J02.9 - Group A strep molecular testing negative - Discussed supportive care treatment with fluids, rest and analgesia. - Contagious dz precautions discussed- including considered contagious until on antibiotics for 24 hours - STREP A MOLECULAR (POC) At this time patient was suggested to follow-up with primary care to talk about possible manager legal due to chronic sinus congestion and drainage. Patient says he has had drainage for many years. This could be a cause for the sore throat due to season changes. Patient agreeable to following up with PCP Amanda Zavala APRN.CNP MDM Procedures documented in this encounter [facility] 02-28-2025 Telephone encounter Note Phoned patient left detailed message with lab results, notes from Dr Huffman on patient voicemail. [facility] 02-28-2025 Miscellaneous Notes Phoned patient left detailed message with lab results, notes from Dr Huffman on patient voicemail. Sannaeint's labs are stable except his red count is up. Recheck labs in one week. Can be due to too little fluids. Push fluids and recheck ordered labs. documented in this encounter [facility] 02-28-2025 Telephone encounter Note Sannaeint's labs are stable except his red count is up. Recheck labs in one week. Can be due to too little fluids. Push fluids and recheck ordered labs. [facility] 02-18-2025 Instructions Cornelius Dasilva APRN.KIANA MANUEL - 02/18/2025 9:22 AM EDT Follow up with Cornelius Dasilva APRN.KIANA MANUEL in 8 weeks Stop the Trospium 20mg tablets and Start trial of Trospium 60mg [place] [facility] team will call to schedule the Cysto/TRUS A Cystoscopy is a procedure that allows your doctor to examine the lining of your bladder and the tube that carries urine out of your body (urethra). A hollow tube (cystoscope) equipped with a lens is inserted into your urethra and slowly advanced into your bladder. This is a very quick outpatient procedure completed at one of our Urology offices. Transrectal ultrasound (TRUS) is a 5- to 15-minute outpatient procedure that uses sound waves to create a video image of the prostate gland. A small, lubricated probe placed into the rectum releases sound waves, which create echoes as they enter the prostate. Avoid bladder irritants - coffee, tea, cola drinks, chocolate, alcohol, artificial sweeteners and cigarettes I discussed treatment options at length including r/b/a of each: To include Medication therapy and the role of further evaluation with UDS, TRUS and cysto if indicated. Return to the clinic or seek care at Express[facility]Urgent Care for any worsening signs or symptoms: such as fevers, chills, worsening pain, gross blood in urine or worsening urinary symptoms. For severe symptoms seek care at the closest ER. Plan of care, medicaiton side effects and management reviewed with patient. Healthy Habits: Recommend regular physical activity, nutrition and healthy eating habits. Consume a variety of foods every day focusing on fruits, vegetables and lean meats). Eat foods low in fat, saturated fat and cholesterol. Eat a limited amount of salt and sodium. Drink adequate amounts of water and limit sugary drinks. Exercise portion control in meal selection. Establish a mindset of a wellness approach to health. Thank you for allowing me to provide your care today. I look forward to seeing you again and maintaining your health. Cornelius Dasilva APRN.KIANA MANUEL documented in this encounter [facility] 02-18-2025 History of Present illness Narrative COUNT INCLUDES THE [facility] MALE PATIENT - HISTORY AND PHYSICAL EXAMINATION PATIENT: Maximo Nixon PCP: Diego Huffman MD CHIEF COMPLAINT: BPH/LUTS/OAB follow up HISTORY OF PRESENT ILLNESS: 84 year old year old male with BPH/LUTS/OAB follow up Past Med Hx: BHP, OAB, GERD, HTN, AFIB, Rhinitis Previously seen by Paul Chatterjee in Jul 2023. Reported increased frequency and Nocturia, previous Green Light PVP with [facility]. Dr. Segovia consult 2015 and recommended try OAB medication, discussed trial of Myrbetriq and increase water intake for 3 months if still having urgency recommend new UDS and Cystoscopy and possible Botox Injection. Tried Ditropan XL (10, 15 mg)- pt did not notice an improvement in his symptoms Started on Mybetriq by Wood Chatterjee and told to follow up in 3 months. Did not follow up in 3 months. States that Myrbetriq was expensive and didn't help him. Didn't go back because test that Paul was talking about doing he had done before and wasn't helpful. Dr. Naranjo discussed about consideration for Botox and/or InterStim per his last note in 2014. S/p greenlight laser 02/26/[address] Naranjo. Since his greenlight procedure he has had intractable urgency/frequency. Started on Flomax. Flomax was causing him to leak urine at times. Has been on Oxybutynin in 2016. Unsure why he stopped medication. Restarted on Trospium 20mg, no sig change in symptoms. PRESENTING HISTORY: Hematuria: none Obstructive voiding symptoms: weak stream. Irritative voiding symptoms: frequency and urgency Urinary retention: no Urinary incontinence: no Urinary tract infection: no Patient Entered Questionnaires: INTERNATIONAL PROSTATE SYMPTOM SCORE (I-PSS) PREVIOUS TOTAL IPSS SCORE: 20 QOL = 6 1. Incomplete emptying 0 2. Frequency 5 3. Intermittency 2 4. Urgency 5 5. Weak stream 5 6. Straining 0 7. 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, 2012 PND (post-nasal drip) S/P MVR (mitral valve repair) Vasomotor rhinitis PAST SURGICAL HISTORY Procedure Laterality Date COLONOSCOPY FLX DX W/COLLJ SPEC WHEN PFRMD 05/06/11 EGD TRANSORAL BIOPSY SINGLE/MULTIPLE 05/06/11 ESOPHAGOGASTRODUODENOSCOPY TRANSORAL DIAGNOSTIC 11/28/2009 EGD ESOPHAGOGASTRODUODENOSCOPY TRANSORAL DIAGNOSTIC 02/13/2020 EGD PAST SURGICAL HISTORY OF 2006 bilateral TKA PAST SURGICAL HISTORY OF Right 2003 inguinal hernia PAST SURGICAL HISTORY OF 10/2013 heart valve repair [facility] MAIN RPR 1ST INGUN HRNA AGE 5 YRS/> REDUCIBLE 08/25/2020 Hernia repair, inguinal XCAPSL CTRC RMVL INSJ IO LENS PROSTH W/O ECP Right 06/04/2015 Cataract Extraction with PC IOL XCAPSL CTRC RMVL INSJ IO LENS PROSTH W/O ECP 07/02/2015 Cataract Extraction with PC IOL OS Social History Tobacco Use Smoking status: Never Smokeless tobacco: Never Vaping Use Vaping status: Never Used Substance Use Topics Alcohol use: No Drug use: Never FAMILY HISTORY Problem Relation Age of Onset Alzheimer's Disease Father other (Other) Daughter brain tumor Allergies Daughter None Son No Ocular Disease No Family History MEDICATIONS: Current Outpatient Medications Medication Sig amLODIPine (NORVASC) 2.5 mg tablet Take 1 tablet by mouth once daily. nutritional supplement/fiber (JUICE PLUS FIBRE ORAL) Take by mouth. Takes eight daily MULTI-VITAMIN ORAL Take by mouth once daily. aspirin, enteric coated (ASPIRIN, ENTERIC COATED) 81 mg EC tablet Take 81 mg by mouth once daily. ascorbic acid (VITAMIN C) 500 mg tablet Take 2 tablets by mouth once daily. Trospium (SANCTURA SR) 60 mg cp24 Take 1 capsule by mouth once daily. Take on an empty stomach No current facility-administered medications for this visit. LABS: Latest Ref Rng 02/18/2025 GLUCOSE UA (POCT) Negative mg/dL Negative BILIRUBIN UA (POCT) Negative Negative KETONE UA (POCT) Negative mg/dL Negative SPECIFIC GRAVITY UA (POCT) 1.005 - 1.030 1.025 HEMOGLOBIN/BLOOD UA (POCT) Negative Negative PH UA (POCT) 4.5 - 8.0 6.0 PROTEIN UA (POCT) Negative mg/dL Negative UROBILINOGEN UA (POCT) Normal E.U./dL 1.0 NITRITE UA (POCT) Negative Negative LEUKOCYTES UA (POCT) Negative Negative COLOR UA (POCT) Dark yellow CLARITY UA (POCT) Clear Creatinine Creatinine Date Value Ref Range Status 03/14/2024 1.12 0.73 - 1.22 mg/dL Final 03/02/2023 1.01 0.73 - 1.22 mg/dL Final 03/02/2022 1.01 0.73 - 1.22 mg/dL Final 03/02/2022 1.04 0.73 - 1.22 mg/dL Final PSA PSA (ng/mL) Date Value 12/10/2013 1.04 12/21/2012 1.17 OFFICE DATA: POST-VOID RESIDUAL BLADDER VOLUME: YES, 2 cc IMAGING: No results found. Review of Systems: PAIN ASSESSMENT: CURRENTLY HAVING NO PAIN GENERAL: No weight loss, malaise or fevers GI: No nausea, vomiting MUSCULOSKELETAL: Negative for generalized joint pain SKIN: Negative for rash HEMATOLOGY/LYMPHOLOGY: Negative for swollen nodes All other systems reviewed and noncontributory PHYSICAL EXAMINATION: VITALS: BP 158/84 Pulse 68 Temp 36.3 C (97.4 F) (Temporal) Resp 14 Ht 185.4 cm (6' 1) Wt 92.5 kg (204 lb) SpO2 94% BMI 26.91 kg/m GENERAL: alert, no distress, normal affect RESPIRATORY: normal effort PELVIC FLOOR: good tone, no tenderness EXTREMITIES: normal SKIN: normal NEUROLOGIC: normal ASSESSMENT/PLAN: 1. Benign prostatic hyperplasia with nocturia - ICD9: 600.01, 788.43, ICD10: N40.1, R35.1 (primary diagnosis) 84y/o male with BPH and nocturia. Not well controlled. Has seen multiple Urologist for this in the past. UA normal today PVR = 2ml Discussed UDS/CYSTO/TRUS reviewed pro and cons. Discussed BPH MIST. Plan: Trial of Trospium 60mg during the day [place] and PFPT is an option Plan for CYSTO/TRUS at [place] office follow up in 8 weeks. Sooner if he feels he is not emptying his bladder. Reviewed SE of Trospium. - UA DIP, URINE (POC) - POST VOID RESIDUAL - TROSPIUM ER 60 MG CAPSULE,EXTENDED RELEASE 24 HR - CYSTO/TRUS ONLY 2. Urgency of urination - ICD9: 788.63, ICD10: R39.15 Chronic - not well controlled. follow up with Cornelius Dasilva APRN.KIANA MANUEL in 8 weeks Plan as above. - BLADDER SCAN 3. OAB (overactive bladder) - ICD9: 596.51, ICD10: N32.81 (primary diagnosis) Chronic - not well controlled. follow up with Cornelius Dasilva APRN.CNP, DNP in 8 weeks Plan as above. - UA DIP, URINE (POC) - POST VOID RESIDUAL - TROSPIUM ER 60 MG CAPSULE,EXTENDED RELEASE 24 HR 4. Nocturia - ICD9: 788.43, ICD10: R35.1 Chronic - not well controlled. follow up with Cornelius Dasilva APRN.CNP, DNP in 8 weeks Plan as above. - UA DIP, URINE (POC) - POST VOID RESIDUAL - CYSTO/TRUS ONLY This note was copied from previous note and exam dated 01/07/25. Author is Cornelius Dasilva APRN.KIANA MANUEL note reviewed and changes have been made or updates noted in the copy & paste portion of an encounter. I spent a total of 30 minutes on the date of the service which included preparing to see the patient, [id number] patient care, completing clinical documentation, performing a medically appropriate examination, counseling and educating the patient/family/caregiver and ordering medications, tests, or procedures. Cornelius Dasilva DNP, CNP Department of Urology [facility] Verified name and date of . CC Post Void Residual HPI: P atient is here now for an appointment with Steffany Shields APRN, DNP Procedure: Explained procedure to patient and verbalizes understanding. Performed a PVR. Patient urinated and instructed to empty bladder as much as possible just prior to having PVR done using bladder ultrasound scanner. Results of scan: 2 mL The patient tolerated the procedure well. Plan: Appointment with Cornelius. documented in this encounter [facility] 02-18-2025 Note HNO ID: [id number] Author: CORNELIUS DASILVA APRN.KIANA MANUEL Service: ? Author Type: Nurse Practitioner Type: Progress Notes Filed: 02/18/2025 09:31 Note Text: COUNT INCLUDES THE [facility] MALE PATIENT - HISTORY AND PHYSICAL EXAMINATION PATIENT: Maximo Nixon PCP: Diego Huffman MD CHIEF COMPLAINT: BPH/LUTS/OAB follow up HISTORY OF PRESENT ILLNESS: 84 year old year old male with BPH/LUTS/OAB follow up Past Med Hx: BHP, OAB, GERD, HTN, AFIB, Rhinitis Previously seen by Paul Chatterjee in Jul 2023. Reported increased frequency and Nocturia, previous Green Light PVP with [facility]. Dr. Segovia consult 2015 and recommended try OAB medication, discussed trial of Myrbetriq and increase water intake for 3 months if still having urgency recommend new UDS and Cystoscopy and possible Botox Injection. Tried Ditropan XL (10, 15 mg)- pt did not notice an improvement in his symptoms Started on Mybetriq by Wood Chatterjee and told to follow up in 3 months. Did not follow up in 3 months. States that Myrbetriq was expensive and didn't help him. Didn't go back because test that Paul was talking about doing he had done before and wasn't helpful. Dr. Naranjo discussed about consideration for Botox and/or InterStim per his last note in 2014. S/p greenlight laser 02/26/[address] Naranjo. Since his greenlight procedure he has had intractable urgency/frequency. Started on Flomax. Flomax was causing him to leak urine at times. Has been on Oxybutynin in 2016. Unsure why he stopped medication. Restarted on Trospium 20mg, no sig change in symptoms. PRESENTING HISTORY: Hematuria: none Obstructive voiding symptoms: weak stream. Irritative voiding symptoms: frequency and urgency Urinary retention: no Urinary incontinence: no Urinary tract infection: no Patient Entered Questionnaires: INTERNATIONAL PROSTATE SYMPTOM SCORE (I-PSS) PREVIOUS TOTAL IPSS SCORE: 20 QOL = 6 1. Incomplete emptying 0 2. Frequency 5 3. Intermittency 2 4. Urgency 5 5. Weak stream 5 6. Straining 0 7. 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, 2012 PND (post-nasal drip) S/P MVR (mitral valve repair) Vasomotor rhinitis PAST SURGICAL HISTORY Procedure Laterality Date COLONOSCOPY FLX DX W/COLLJ SPEC WHEN PFRMD 05/06/11 EGD TRANSORAL BIOPSY SINGLE/MULTIPLE 05/06/11 ESOPHAGOGASTRODUODENOSCOPY TRANSORAL DIAGNOSTIC 11/28/2009 EGD ESOPHAGOGASTRODUODENOSCOPY TRANSORAL DIAGNOSTIC 02/13/2020 EGD PAST SURGICAL HISTORY OF 2007 bilateral TKA PAST SURGICAL HISTORY OF Right 2003 inguinal hernia PAST SURGICAL HISTORY OF 10/2013 heart valve repair [facility] MAIN RPR 1ST INGUN HRNA AGE 5 YRS/> REDUCIBLE 08/25/2020 Hernia repair, inguinal XCAPSL CTRC RMVL INSJ IO LENS PROSTH W/O ECP Right 06/04/2015 Cataract Extraction with PC IOL XCAPSL CTRC RMVL INSJ IO LENS PROSTH W/O ECP 07/02/2015 Cataract Extraction with PC IOL OS Social History Tobacco Use Smoking status: Never Smokeless tobacco: Never Vaping Use Vaping status: Never Used Substance Use Topics Alcohol use: No Drug use: Never FAMILY HISTORY Problem Relation Age of Onset Alzheimer's Disease Father other (Other) Daughter brain tumor Allergies Daughter None Son No Ocular Disease No Family History MEDICATIONS: Current Outpatient Medications Medication Sig amLODIPine (NORVASC) 2.5 mg tablet Take 1 tablet by mouth once daily. nutritional supplement/fiber (JUICE PLUS FIBRE ORAL) Take by mouth. Takes eight daily MULTI-VITAMIN ORAL Take by mouth once daily. aspirin, enteric coated (ASPIRIN, ENTERIC COATED) 81 mg EC tablet Take 81 mg by mouth once daily. ascorbic acid (VITAMIN C) 500 mg tablet Take 2 tablets by mouth once daily. Trospium (SANCTURA SR) 60 mg cp24 Take 1 capsule by mouth once daily. Take on an empty stomach No current facility-administered medications for this visit. LABS: Latest Ref Rng 02/18/2025 GLUCOSE UA (POCT) Negative mg/dL Negative BILIRUBIN UA (POCT) Negative Negative KETONE UA (POCT) Negative mg/dL Negative SPECIFIC GRAVITY UA (POCT) 1.005 - 1.030 1.025 HEMOGLOBIN/BLOOD UA (POCT) Negative Negative PH UA (POCT) 4.5 - 8.0 6.0 PROTEIN UA (POCT) Negative mg/dL Negative UROBILINOGEN UA (POCT) Normal E.U./dL 1.0 NITRITE UA (POCT) Negative Negative LEUKOCYTES UA (POCT) Negative Negative COLOR UA (POCT) Dark yellow CLARITY UA (POCT) Clear Creatinine Creatinine Date Value Ref Range Status 03/14/2024 1.12 0.73 - 1.22 mg/dL Final 03/02/2023 1.0 (more content not included)... [facility] 02-18-2025 Note HNO ID: [id number] Author: KAYLI NEWMAN LPN Service: ? Author Type: LICENSED NURSE Type: Progress Notes Filed: 02/18/2025 09:31 Note Text: Verified name and date of . CC Post Void Residual HPI: Jean Pierre leonardo is here now for an appointment with Steffany Shiedls APRN, KIANA Procedure: Explained procedure to patient and verbalizes understanding. Performed a PVR. Patient urinated and instructed to empty bladder as much as possible just prior to having PVR done using bladder ultrasound scanner. Results of scan: 2 mL The patient tolerated the procedure well. Plan: Appointment with Cornelius. [facility] 01-29-2025 Telephone encounter Note Called pt to review message, verbalizes understanding of message. Please call and inform Mr. Nixon: Echocardiogram showed normal heart function. Mild left lower chamber muscle wall thickening. Mildly dilated left upper chamber size. Normal flow through the mitral ring. There is moderate aortic valve regurgitation/ leakiness. There is mild pulmonic valve regurgitation/ leakiness. The thoracic aorta size is slightly dilated. Recommend monitoring with echocardiogram in 1 year. Keep f/u appointment. [facility] 01-29-2025 Miscellaneous Notes Called pt to review message, verbalizes understanding of message. Please call and inform Mr. Nixon: Echocardiogram showed normal heart function. Mild left lower chamber muscle wall thickening. Mildly dilated left upper chamber size. Normal flow through the mitral ring. There is moderate aortic valve regurgitation/ leakiness. There is mild pulmonic valve regurgitation/ leakiness. The thoracic aorta size is slightly dilated. Recommend monitoring with echocardiogram in 1 year. Keep f/u appointment. documented in this encounter [facility] 01-22-2025 History of Present illness Narrative Radiology Service Progress Note PATIENT NAME: Mxaimo Nixon DATE OF SERVICE: January 22, 2025 TIME: 11:07 AM PATIENT IDENTITY VERIFICATION COMPLETED USING TWO (2) IDENTIFIERS: Name and Date of confirmed by patient verbally. FALL SCREENING: Has the patient had 2 falls in the last year or 1 fall with injury or currently using an Ambulatory Assistive Device (Walker, Cane, Wheelchair, Crutches, etc.)? No PATIENT GENDER DATA: Assigned male at PATIENT RELEVANT IMPLANT DATA REVIEWED: Yes PATIENT PRESENTS WITH AN IMPLANTABLE OR ATTACHED WING COVERER: No RADIOLOGY DEPARTMENT: General X-ray: Exam(s) Completed: Chest X-Ray PERIPHERAL IV DATA: Not applicable SIGNED BY: RT Khushi(R) January 22, 2025 11:07 AM documented in this encounter [facility] 01-22-2025 Note HNO ID: [id number] Author: TEQUILA DELONG RT(R) Service: ? Author Type: Seam Press Operator Type: Progress Notes Filed: 01/22/2025 11:12 Note Text: Radiology Service Progress Note PATIENT NAME: Maximo Nixon DATE OF SERVICE: January 22, 2025 TIME: 11:07 AM PATIENT IDENTITY VERIFICATION COMPLETED USING TWO (2) IDENTIFIERS: Name and Date of confirmed by patient verbally. FALL SCREENING: Has the patient had 2 falls in the last year or 1 fall with injury or currently using an Ambulatory Assistive Device (Walker, Cane, Wheelchair, Crutches, etc.)? No PATIENT GENDER DATA: Assigned male at PATIENT RELEVANT IMPLANT DATA REVIEWED: Yes PATIENT PRESENTS WITH AN IMPLANTABLE OR ATTACHED WING COVERER: No RADIOLOGY DEPARTMENT: General X-ray: Exam(s) Completed: Chest X-Ray PERIPHERAL IV DATA: Not applicable SIGNED BY: RT Khushi(R) January 22, 2025 11:07 AM [facility] 01-22-2025 Note HNO ID: [id number] Author: SEBASTIAN HERNANDEZ PA-C Service: ? Author Type: Physician Mine Technician Type: Progress Notes Filed: 01/22/2025 11:35 Note Text: This note was created using [employer] [place] [employer]. Subjective Maximo Nixon is a 84 year old male. Patient is an 84-year-old male who complains of cough that he states developed overnight. Patient reports no congestion, sinus pressure, ear pain or sore throat, although he does describe throat irritation secondary to frequent, forceful coughing. Patient has no history of asthma or COPD and does not smoke. Patient denies fever, chills or myalgia. Patient reports that his positive for influenza type A several days ago. Review of Systems Respiratory: Positive for cough. All other systems reviewed and are negative. Objective BP 122/66 Pulse 80 Temp 37.3 ?C (99.1 ?F) Resp 16 Wt 93.1 kg (205 lb 4 oz) SpO2 97% BMI 26.35 kg/m? Physical Exam Vitals and nursing note reviewed. Constitutional: Appearance: Normal appearance. He is normal weight. HENT: Head: Normocephalic and atraumatic. Right Ear: Tympanic membrane, ear canal and external ear normal. Left Ear: Tympanic membrane, ear canal and external ear normal. Nose: Nose normal. Mouth/Throat: Mouth: Mucous membranes are moist. Pharynx: Oropharynx is clear. Eyes: Extraocular Movements: Extraocular movements intact. Conjunctiva/sclera: Conjunctivae normal. Pupils: Pupils are equal, round, and reactive to light. Cardiovascular: Rate and Rhythm: Normal rate and regular rhythm. Pulses: Normal pulses. Heart sounds: Normal heart sounds. Pulmonary: Effort: Pulmonary effort is normal. Breath sounds: Normal breath sounds. Musculoskeletal: Cervical back: Normal range of motion and neck supple. Skin: General: Skin is warm and dry. Capillary Refill: Capillary refill takes less than 2 seconds. Neurological: General: No focal deficit present. Mental Status: He is alert and oriented to person, place, and time. Psychiatric: Mood and Affect: Mood normal. Behavior: Behavior normal. Thought Content: Thought content normal. Judgment: Judgment normal. Assessment and Plan Unremarkable physical exam findings as noted above. Rapid influenza A/B test is positive for influenza type A. Chest x-ray is negative for acute findings as reported by the radiologist. Patient was provided with prescriptions for Tamiflu 75 mg and Tessalon 100 mg. Supportive care instructions were discussed and the patient verbalizes excellent understanding of same. CLINICAL IMPRESSION: Influenza Type A ASSESSMENT/PLAN: 1. Acute cough - ICD9: 786.2, ICD10: R05.1 (primary diagnosis) - XR CHEST 2V FRONTAL/LAT - INFLUENZA AANDB MOLECULAR (POC) 2. Influenza A - ICD9: 487.1, ICD10: J10.1 - OSELTAMIVIR 75 MG CAPSULE - BENZONATATE 100 MG CAPSULE Sebastian Hernandez PA-C [facility] 01-22-2025 History of Present illness Narrative This note was created using [employer]. Subjective Maximo Nixon is a 84 year old male. Patient is an 84-year-old male who complains of cough that he states developed overnight. Patient reports no congestion, sinus pressure, ear pain or sore throat, although he does describe throat irritation secondary to frequent, forceful coughing. Patient has no history of asthma or COPD and does not smoke. Patient denies fever, chills or myalgia. Patient reports that his positive for influenza type A several days ago. Review of Systems Respiratory: Positive for cough. All other systems reviewed and are negative. Objective BP 122/66 Pulse 80 Temp 37.3 C (99.1 F) Resp 16 Wt 93.1 kg (205 lb 4 oz) SpO2 97% BMI 26.35 kg/m Physical Exam Vitals and nursing note reviewed. Constitutional: Appearance: Normal appearance. He is normal weight. HENT: Head: Normocephalic and atraumatic. Right Ear: Tympanic membrane, ear canal and external ear normal. Left Ear: Tympanic membrane, ear canal and external ear normal. Nose: Nose normal. Mouth/Throat: Mouth: Mucous membranes are moist. Pharynx: Oropharynx is clear. Eyes: Extraocular Movements: Extraocular movements intact. Conjunctiva/sclera: Conjunctivae normal. Pupils: Pupils are equal, round, and reactive to light. Cardiovascular: Rate and Rhythm: Normal rate and regular rhythm. Pulses: Normal pulses. Heart sounds: Normal heart sounds. Pulmonary: Effort: Pulmonary effort is normal. Breath sounds: Normal breath sounds. Musculoskeletal: Cervical back: Normal range of motion and neck supple. Skin: General: Skin is warm and dry. Capillary Refill: Capillary refill takes less than 2 seconds. Neurological: General: No focal deficit present. Mental Status: He is alert and oriented to person, place, and time. Psychiatric: Mood and Affect: Mood normal. Behavior: Behavior normal. Thought Content: Thought content normal. Judgment: Judgment normal. Assessment and Plan Unremarkable physical exam findings as noted above. Rapid influenza A/B test is positive for influenza type A. Chest x-ray is negative for acute findings as reported by the radiologist. Patient was provided with prescriptions for Tamiflu 75 mg and Tessalon 100 mg. Supportive care instructions were discussed and the patient verbalizes excellent understanding of same. CLINICAL IMPRESSION: Influenza Type A ASSESSMENT/PLAN: 1. Acute cough - ICD9: 786.2, ICD10: R05.1 (primary diagnosis) - XR CHEST 2V FRONTAL/LAT - INFLUENZA A&B MOLECULAR (POC) 2. Influenza A - ICD9: 487.1, ICD10: J10.1 - OSELTAMIVIR 75 MG CAPSULE - BENZONATATE 100 MG CAPSULE Sebastian Hernandez PA-C documented in this encounter [facility] 01-07-2025 Instructions Cornelius Dasilva APRN.KIANA MANUEL - 01/07/2025 1:49 PM EST Trial of Trospium for OAB symptoms. follow up in 4-6 weeks with Cornelius Dasilva APRN.KIANA MANUEL Kegal Exercises daily For OAB: Recommend behavioral therapies (e.g., bladder training, bladder control strategies, pelvic floor muscle training, fluid management) Anti-muscarinic medications: (Oxybutynin (Ditropan XL) Tolterodine (Detrol, Detrol LA), Solifenacin (Vesicare, Vesicare LS), Trospium, and Fesoterodine (Toviaz): The choice of oral anti-muscarinics as second-line therapy reflects the fact that these medications reduce symptoms but also can commonly have side effects such as dry mouth, constipation, dry or itchy eyes, blurred vision, dyspepsia, UTI, urinary retention and impaired cognitive function (trouble with memory and confusion). For dry mouth, try sucking hard candy or chewing gum to produce more saliva. Other less common side effects include heartburn, blurry vision, rapid heartbeat, flushed skin and trouble urinating. ? 3-adrenoceptor agonists: Mirabegron and Gemtesa are options. These are typically not covered by most commercial insurance plans. They work on the muscles of the bladder to increase the amount of urine your bladder can hold and prevent them from causing incontinence Common side effects of these medications are High Blood Pressure, Headache, UTIs, Nasopharyngitis, bladder pain, and urinary retention. Sacral neuromodulation (SNS) as third-line treatment in a carefully selected patient population characterized by severe refractory OAB symptoms or patients who are not candidates for second-line therapy and are willing to undergo a surgical procedure Healthy Habits: Recommend regular physical activity, nutrition and healthy eating habits. Consume a variety of foods every day focusing on fruits, vegetables and lean meats). Eat foods low in fat, saturated fat and cholesterol. Eat a limited amount of salt and sodium. Drink adequate amounts of water and limit sugary drinks. Exercise portion control in meal selection. Establish a mindset of a wellness approach to health. Thank you for allowing me to provide your care today. I look forward to seeing you again and maintaining your health. Cornelius Dasilva APRN.KIANA MANUEL documented in this encounter [facility] 01-07-2025 History of Present illness Narrative COUNT INCLUDES THE [facility] MALE PATIENT - HISTORY AND PHYSICAL EXAMINATION PATIENT: Maximo Nixon PCP: Diego Huffman MD CHIEF COMPLAINT: BPH/LUTS/OAB follow up HISTORY OF PRESENT ILLNESS: 84 year old year old male with BPH/LUTS/OAB follow up present at appt Past Med Hx: BHP, OAB, GERD, HTN, AFIB, Rhinitis Previously seen by Paul Chatterjee in Jul 2023. Reported increased frequency and Nocturia, previous Green Light PVP with [place]. Dr. Segovia consult 2015 and recommended try OAB medication, discussed trial of Myrbetriq and increase water intake for 3 months if still having urgency recommend new UDS and Cystoscopy and possible Botox Injection. Tried Ditropan XL (10, 15 mg)- pt did not notice an improvement in his symptoms Started on Mybetriq by Wood Chatterjee and told to follow up in 3 months. Did not follow up in 3 months. States that Myrbetriq was expensive and didn't help him. Didn't go back because test that Paul was talking about doing he had done before and wasn't helpful. Dr. Naranjo discussed about consideration for Botox and/or InterStim per his last note in 2014. S/p greenlight laser 02/26/[address] Naranjo. Since his greenlight procedure he has had intractable urgency/frequency. Started on Flomax at last appt. Flomax was causing him to leak urine at times. Has been on Oxybutynin in 2016. Unsure why he stopped medication. PRESENTING HISTORY: Hematuria: none Obstructive voiding symptoms: weak stream. Irritative voiding symptoms: frequency and urgency Urinary retention: no Urinary incontinence: no Urinary tract infection: no Patient Entered Questionnaires: INTERNATIONAL PROSTATE SYMPTOM SCORE (I-PSS) PREVIOUS TOTAL IPSS SCORE: 20 QOL = 6 1. Incomplete emptying 0 2. Frequency 5 3. Intermittency 2 4. Urgency 5 5. Weak stream 5 6. Straining 0 7. Nocturia 3 TOTAL IPSS SCORE 20 QOL = 6 HISTORY: PAST MEDICAL HISTORY Diagnosis Date Acute gastritis without mention of hemorrhage Arrhythmia BPH associated with nocturia Esophagitis, unspecified Essential hypertension, benign 05/25/2012 Gastroesophageal reflux disease, unspecified whether esophagitis present GERD (gastroesophageal reflux disease) OAB (overactive bladder) Paroxysmal A-fib (HCC) transitory 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, 2012 PND (post-nasal drip) S/P MVR (mitral valve repair) Vasomotor rhinitis PAST SURGICAL HISTORY Procedure Laterality Date COLONOSCOPY FLX DX W/COLLJ SPEC WHEN PFRMD 05/06/11 EGD TRANSORAL BIOPSY SINGLE/MULTIPLE 05/06/11 ESOPHAGOGASTRODUODENOSCOPY TRANSORAL DIAGNOSTIC 11/28/2009 EGD ESOPHAGOGASTRODUODENOSCOPY TRANSORAL DIAGNOSTIC 02/13/2020 EGD PAST SURGICAL HISTORY OF 2007 bilateral TKA PAST SURGICAL HISTORY OF Right 2002 inguinal hernia PAST SURGICAL HISTORY OF 10/2013 heart valve repair [facility] MAIN RPR 1ST INGUN HRNA AGE 5 YRS/> REDUCIBLE 08/25/2020 Hernia repair, inguinal XCAPSL CTRC RMVL INSJ IO LENS PROSTH W/O ECP Right 06/04/2015 Cataract Extraction with PC IOL XCAPSL CTRC RMVL INSJ IO LENS PROSTH W/O ECP 07/02/2015 Cataract Extraction with PC IOL OS Social History Tobacco Use Smoking status: Never Smokeless tobacco: Never Vaping Use Vaping status: Never Used Substance Use Topics Alcohol use: No Drug use: Never FAMILY HISTORY Problem Relation Age of Onset Alzheimer's Disease Father other (Other) Daughter brain tumor Allergies Daughter None Son No Ocular Disease No Family History MEDICATIONS: Current Outpatient Medications Medication Sig amLODIPine (NORVASC) 2.5 mg tablet Take 1 tablet by mouth once daily. nutritional supplement/fiber (JUICE PLUS FIBRE ORAL) Take by mouth. Takes eight daily MULTI-VITAMIN ORAL Take by mouth once daily. aspirin, enteric coated (ASPIRIN, ENTERIC COATED) 81 mg EC tablet Take 81 mg by mouth once daily. ascorbic acid (VITAMIN C) 500 mg tablet Take 2 tablets by mouth once daily. trospium (SANCTURA) 20 mg tablet Take 1 tablet by mouth once daily. Take for overactive bladder No current facility-administered medications for this visit. LABS: Latest Ref Rng 10/08/2024 GLUCOSE UA (POCT) Negative mg/dL Negative BILIRUBIN UA (POCT) Negative Negative KETONE UA (POCT) Negative mg/dL Negative SPECIFIC GRAVITY UA (POCT) 1.005 - 1.030 >=1.030 HEMOGLOBIN/BLOOD UA (POCT) Negative Negative PH UA (POCT) 4.5 - 8.0 5.5 PROTEIN UA (POCT) Negative mg/dL Negative UROBILINOGEN UA (POCT) Normal E.U./dL 1.0 NITRITE UA (POCT) Negative Negative LEUKOCYTES UA (POCT) Negative Negative COLOR UA (POCT) Yellow CLARITY UA (POCT) Clear Creatinine Creatinine Date Value Ref Range Status 03/14/2024 1.12 0.73 - 1.22 mg/dL Final 03/02/2023 1.01 0.73 - 1.22 mg/dL Final 03/02/2022 1.01 0.73 - 1.22 mg/dL Final 03/02/2022 1.04 0.73 - 1.22 mg/dL Final PSA PSA (ng/mL) Date Value 12/10/2013 1.04 12/21/2012 1.17 OFFICE DATA: POST-VOID RESIDUAL BLADDER VOLUME: YES, 30 cc IMAGING: No results found. Review of Systems: PAIN ASSESSMENT: CURRENTLY HAVING NO PAIN GENERAL: No weight loss, malaise or fevers GI: No nausea, vomiting MUSCULOSKELETAL: Negative for generalized joint pain SKIN: Negative for rash HEMATOLOGY/LYMPHOLOGY: Negative for swollen nodes All other systems reviewed and noncontributory PHYSICAL EXAMINATION: VITALS: BP 132/79 Pulse 62 Ht 188 cm (6' 2) Wt 93.4 kg (206 lb) BMI 26.45 kg/m GENERAL: alert, no distress, normal affect RESPIRATORY: normal effort PELVIC FLOOR: good tone, no tenderness EXTREMITIES: normal SKIN: normal NEUROLOGIC: normal ASSESSMENT/PLAN: 1. Benign prostatic hyperplasia with nocturia - ICD9: 600.01, 788.43, ICD10: N40.1, R35.1 (primary diagnosis) 84y/o male with BPH and nocturia. Not well controlled. Has seen multiple Urologist for this in the past. UA normal/DARON Normal/No FHX of prostate cancer. Not interested in UDS or Cysto/TRUS. Trial of Kegal and/or formal PFPT. Stopped - Flomax. Will trial Trospium. PVR = 30ml Urinated prior to his appt. Plan: Trial of Trospium during the day Stopped the Flomax because he was leaking urine Kegal and PFPT is an option Declined UDS/CYSTO/TRUS follow up in 6 weeks. Sooner if he feels he is not emptying his bladder. Reviewed SE of Trospium. - BLADDER SCAN 2. Urgency of urination - ICD9: 788.63, ICD10: R39.15 Chronic - not well controlled. follow up with Cornelius Dasilva APRN.KIANA MANUEL in 6 weeks Plan as above. - BLADDER SCAN This note was copied from previous note and exam dated 10/08/24. Author is Cornelius Dasilva APRN.KIANA MANUEL note reviewed and changes have been made or updates noted in the copy & paste portion of an encounter. I spent a total of 30 minutes on the date of the service which included preparing to see the patient, [id number] patient care, completing clinical documentation, performing a medically appropriate examination, counseling and educating the patient/family/caregiver and ordering medications, tests, or procedures. Cornelius Dasilva DNP, CNP Department of Urology [facility] documented in this encounter [facility] 01-07-2025 Note HNO ID: [id number] Author: CORNELIUS DASILVA APRN.KIANA MANUEL Service: ? Author Type: Nurse Practitioner Type: Progress Notes Filed: 01/07/2025 14:02 Note Text: COUNT INCLUDES THE [facility] MALE PATIENT - HISTORY AND PHYSICAL EXAMINATION PATIENT: Maximo Nixon PCP: Diego Huffman MD CHIEF COMPLAINT: BPH/LUTS/OAB follow up HISTORY OF PRESENT ILLNESS: 84 year old year old male with BPH/LUTS/OAB follow up present at appt Past Med Hx: BHP, OAB, GERD, HTN, AFIB, Rhinitis Previously seen by Paul Chatterjee in Jul 2023. Reported increased frequency and Nocturia, previous Green Light PVP with Jose A. Dr. Segovia consult 2015 and recommended try OAB medication, discussed trial of Myrbetriq and increase water intake for 3 months if still having urgency recommend new UDS and Cystoscopy and possible Botox Injection. Tried Ditropan XL (10, 15 mg)- pt did not notice an improvement in his symptoms Started on Mybetriq by Wood Chatterjee and told to follow up in 3 months. Did not follow up in 3 months. States that Myrbetriq was expensive and didn't help him. Didn't go back because test that Paul was talking about doing he had done before and wasn't helpful. Dr. Naranjo discussed about consideration for Botox and/or InterStim per his last note in 2014. S/p greenlight laser 02/26/[address] Naranjo. Since his greenlight procedure he has had intractable urgency/frequency. Started on Flomax at last appt. Flomax was causing him to leak urine at times. Has been on Oxybutynin in 2016. Unsure why he stopped medication. PRESENTING HISTORY: Hematuria: none Obstructive voiding symptoms: weak stream. Irritative voiding symptoms: frequency and urgency Urinary retention: no Urinary incontinence: no Urinary tract infection: no Patient Entered Questionnaires: INTERNATIONAL PROSTATE SYMPTOM SCORE (I-PSS) PREVIOUS TOTAL IPSS SCORE: 20 QOL = 6 1. Incomplete emptying 0 2. Frequency 5 3. Intermittency 2 4. Urgency 5 5. Weak stream 5 6. Straining 0 7. Nocturia 3 TOTAL IPSS SCORE 20 QOL = 6 HISTORY: PAST MEDICAL HISTORY Diagnosis Date Acute gastritis without mention of hemorrhage Arrhythmia BPH associated with nocturia Esophagitis, unspecified Essential hypertension, benign 05/25/2012 Gastroesophageal reflux disease, unspecified whether esophagitis present GERD (gastroesophageal reflux disease) OAB (overactive bladder) Paroxysmal A-fib (HCC) transitory 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, 2012 PND (post-nasal drip) S/P MVR (mitral valve repair) Vasomotor rhinitis PAST SURGICAL HISTORY Procedure Laterality Date COLONOSCOPY FLX DX W/COLLJ SPEC WHEN PFRMD 05/06/11 EGD TRANSORAL BIOPSY SINGLE/MULTIPLE 05/06/11 ESOPHAGOGASTRODUODENOSCOPY TRANSORAL DIAGNOSTIC 11/28/2009 EGD ESOPHAGOGASTRODUODENOSCOPY TRANSORAL DIAGNOSTIC 02/13/2020 EGD PAST SURGICAL HISTORY OF 2007 bilateral TKA PAST SURGICAL HISTORY OF Right 2003 inguinal hernia PAST SURGICAL HISTORY OF 10/2013 heart valve repair [facility] MAIN RPR 1ST INGUN HRNA AGE 5 YRS/> REDUCIBLE 08/25/2020 Hernia repair, inguinal XCAPSL CTRC RMVL INSJ IO LENS PROSTH W/O ECP Right 06/04/2015 Cataract Extraction with PC IOL XCAPSL CTRC RMVL INSJ IO LENS PROSTH W/O ECP 07/02/2015 Cataract Extraction with PC IOL OS Social History Tobacco Use Smoking status: Never Smokeless tobacco: Never Vaping Use Vaping status: Never Used Substance Use Topics Alcohol use: No Drug use: Never FAMILY HISTORY Problem Relation Age of Onset Alzheimer's Disease Father other (Other) Daughter brain tumor Allergies Daughter None Son No Ocular Disease No Family History MEDICATIONS: Current Outpatient Medications Medication Sig amLODIPine (NORVASC) 2.5 mg tablet Take 1 tablet by mouth once daily. nutritional supplement/fiber (JUICE PLUS FIBRE ORAL) Take by mouth. Takes eight daily MULTI-VITAMIN ORAL Take by mouth once daily. aspirin, enteric coated (ASPIRIN, ENTERIC COATED) 81 mg EC tablet Take 81 mg by mouth once daily. ascorbic acid (VITAMIN C) 500 mg tablet Take 2 tablets by mouth once daily. trospium (SANCTURA) 20 mg tablet Take 1 tablet by mouth once daily. Take for overactive bladder No current facility-administered medications for this visit. LABS: Latest Ref Rng 10/08/2024 GLUCOSE UA (POCT) Negative mg/dL Negative BILIRUBIN UA (POCT) Negative Negative KETONE UA (POCT) Negative mg/dL Negative SPECIFIC GRAVITY UA (POCT) 1.005 - 1.030 >=1.030 HEMOGLOBIN/BLOOD UA (POCT) Negative Negative PH UA (POCT) 4.5 - 8.0 5.5 PROTEIN UA (POCT) Negative mg/dL Negative UROBILINOGEN UA (POCT) Normal E.U./dL 1.0 NITRITE UA (POCT) Negative Negative LEUKOCYTES UA (POCT) Negative Negative COLOR UA (POCT) Yellow CLARITY UA (POCT) Clear Creatinine Creatinine Date Value Ref Range Status 03/14/2024 1.12 0.73 - 1.22 mg/dL Final 03/02/2023 1.01 0.73 - 1.22 mg/dL Final 03/02/2022 1.01 0.73 - 1.22 mg/dL Final (more content not included)... [facility] 12-27-2024 History of Present illness Narrative Images from the original note were not included. [facility] SE[facility] OF [facility]IONAL CARDIOLOGY OUTPATIENT VISIT DATE 12/27/2024 OUTPATIENT VISIT TYPE NEW PRIMARY CARE PHYSICIAN: Diego Huffman [address] [place] [address] Patient is being seen at the request of Self for follow up HISTORY OF PRESENT ILLNESS: Mr. Nixon is a 84 year old male, hx of MV repair with annuloplasty ring 35mm on 10/30/2013 with normal coronaries per pre MVR cardiac cath report 08/24/2013, post afib maintaining sinus rhythm, Hypertension, GERD presents for f/u. Previously seen by Dr. Cordero 05/11/22. He denies chest pain, SOB, palpitations, orthopnea, PND, leg swelling, lightheadedness, syncope. He reports tinnitus in his right ear as well as thick mucus which he has to expectorate. Not improved by medications such as mucinex TTE 05/11/2022: EF 56%, 1.2/1.2, RVSP 31, mildly dil LA, s/p [place] Mitral valve annuloplasty ring size #35 with trace (trace - 1+) MR. Peak/ mean mitral valve gradients 9/3 mmHg. PHT 119, trace TR, 1-2+AR, 1+ NC, asc Ao 3.6 PAST MEDICAL HISTORY Diagnosis Date Acute gastritis without mention of hemorrhage Arrhythmia BPH associated with nocturia Esophagitis, unspecified Essential hypertension, benign 05/25/2012 Gastroesophageal reflux disease, unspecified whether esophagitis present GERD (gastroesophageal reflux disease) OAB (overactive bladder) Paroxysmal A-fib (HCC) transitory 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, 2012 PND (post-nasal drip) S/P MVR (mitral valve repair) Vasomotor rhinitis PAST SURGICAL HISTORY Procedure Laterality Date COLONOSCOPY FLX DX W/COLLJ SPEC WHEN PFRMD 05/06/11 EGD TRANSORAL BIOPSY SINGLE/MULTIPLE 05/06/11 ESOPHAGOGASTRODUODENOSCOPY TRANSORAL DIAGNOSTIC 11/28/2009 EGD ESOPHAGOGASTRODUODENOSCOPY TRANSORAL DIAGNOSTIC 02/13/2020 EGD PAST SURGICAL HISTORY OF 2007 bilateral TKA PAST SURGICAL HISTORY OF Right 2003 inguinal hernia PAST SURGICAL HISTORY OF 10/2013 heart valve repair [facility] MAIN RPR 1ST INGUN HRNA AGE 5 YRS/> REDUCIBLE 08/25/2020 Hernia repair, inguinal XCAPSL CTRC RMVL INSJ IO LENS PROSTH W/O ECP Right 06/04/2015 Cataract Extraction with PC IOL XCAPSL CTRC RMVL INSJ IO LENS PROSTH W/O ECP 07/02/2015 Cataract Extraction with PC IOL OS Social History Tobacco Use Smoking status: Never Smokeless tobacco: Never Vaping Use Vaping status: Never Used Substance Use Topics Alcohol use: No Drug use: Never FAMILY HISTORY Problem Relation Age of Onset Alzheimer's Disease Father other (Other) Daughter brain tumor Allergies Daughter None Son No Ocular Disease No Family History ALLERGIES Allergen Reactions Lisinopril Cough CURRENT MEDICATIONS: tamsulosin (FLOMAX) 0.4 mg Take 1 capsule by mouth daily at bedtime. (Patient not taking: Reported on 11/06/2024) amLODIPine (NORVASC) 2.5 mg tablet Take 1 tablet by mouth once daily. nutritional supplement/fiber (JUICE PLUS FIBRE ORAL) Take by mouth. Takes eight daily MULTI-VITAMIN ORAL Take by mouth once daily. aspirin, enteric coated (ASPIRIN, ENTERIC COATED) 81 mg EC tablet Take 81 mg by mouth once daily. ascorbic acid (VITAMIN C) 500 mg tablet Take 2 tablets by mouth once daily. PHYSICAL EXAMINATION: BP 142/74 Pulse 62 Ht 188 cm (6' 2) Wt 92.3 kg (203 lb 7.8 oz) SpO2 96% BMI 26.13 kg/m General: Appears comfortable in no apparent cardiopulmonary distress Neck: No JVD, no bruits CVS: S1, S2, No m/r/g Chest: CTAB Abd: Soft, nontender, no masses, BS present Ext: No pedal edema, pedal pulses 2+ bilaterally Neuro: No focal neurological deficits ASSESSMENT/PLAN: 1. S/P MVR (mitral valve repair) - ICD9: V45.89, ICD10: Z98.890 (primary diagnosis) TTE 2021 showed s/p Melgar Mitral valve annuloplasty ring size #35 with trace (trace - 1+) MR. Peak/ mean mitral valve gradients 9/3 mmHg. PHT 119 - Repeat TTE to reassess MV gradients, PHT, etc. Mychart w results - RTC in 6 months 2. Aortic valve insufficiency, etiology of cardiac valve disease unspecified - ICD9: 424.1, ICD10: I35.1 1-2+ AR per TTE 2021 - Repeat TTE to reassess severity. Call with echo 3. Tinnitus - Referral to ENT. He also reports thick mucus that he has to expectorate not alleviated by mucinex. MRI brain showed minimal mucosal thickening in the left maxillary sinus. Partial opacification of the left mastoid air cells, likely inflammatory. Lynette Patel MD, FACC documented in this encounter [facility] 12-27-2024 Note HNO ID: [id number] Author: LYNETTE PATEL MD Service: ? Author Type: Physician Type: Progress Notes Filed: 12/27/2024 15:02 Note Text: [facility] [place] SECTION OF REGIONAL CARDIOLOGY OUTPATIENT VISIT DATE 12/27/2024 OUTPATIENT VISIT TYPE NEW PRIMARY CARE PHYSICIAN: Diego Huffman [address] [place] [address] Patient is being seen at the request of Self for follow up HISTORY OF PRESENT ILLNESS: Mr. Nixon is a 84 year old male, hx of MV repair with annuloplasty ring 35mm on 10/30/2013 with normal coronaries per pre MVR cardiac cath report 08/24/2013, post afib maintaining sinus rhythm, Hypertension, GERD presents for f/u. Previously seen by Dr. Cordero 05/11/22. He denies chest pain, SOB, palpitations, orthopnea, PND, leg swelling, lightheadedness, syncope. He reports tinnitus in his right ear as well as thick mucus which he has to expectorate. Not improved by medications such as mucinex TTE 05/11/2022: EF 56%, 1.2/1.2, RVSP 31, mildly dil LA, s/p Melgar Mitral valve annuloplasty ring size #35 with trace (trace - 1+) MR. Peak/ mean mitral valve gradients 9/3 mmHg. PHT 119, trace TR, 1-2+AR, 1+ NC, asc Ao 3.6 PAST MEDICAL HISTORY Diagnosis Date Acute gastritis without mention of hemorrhage Arrhythmia BPH associated with nocturia Esophagitis, unspecified Essential hypertension, benign 05/25/2012 Gastroesophageal reflux disease, unspecified whether esophagitis present GERD (gastroesophageal reflux disease) OAB (overactive bladder) Paroxysmal A-fib (HCC) transitory 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, 2012 PND (post-nasal drip) S/P MVR (mitral valve repair) Vasomotor rhinitis PAST SURGICAL HISTORY Procedure Laterality Date COLONOSCOPY FLX DX W/COLLJ SPEC WHEN PFRMD 05/06/11 EGD TRANSORAL BIOPSY SINGLE/MULTIPLE 05/06/11 ESOPHAGOGASTRODUODENOSCOPY TRANSORAL DIAGNOSTIC 11/28/2009 EGD ESOPHAGOGASTRODUODENOSCOPY TRANSORAL DIAGNOSTIC 02/13/2020 EGD PAST SURGICAL HISTORY OF 2006 bilateral TKA PAST SURGICAL HISTORY OF Right 2003 inguinal hernia PAST SURGICAL HISTORY OF 10/2013 heart valve repair [facility] MAIN RPR 1ST INGUN HRNA AGE 5 YRS/> REDUCIBLE 08/25/2020 Hernia repair, inguinal XCAPSL CTRC RMVL INSJ IO LENS PROSTH W/O ECP Right 06/04/2015 Cataract Extraction with PC IOL XCAPSL CTRC RMVL INSJ IO LENS PROSTH W/O ECP 07/02/2015 Cataract Extraction with PC IOL OS Social History Tobacco Use Smoking status: Never Smokeless tobacco: Never Vaping Use Vaping status: Never Used Substance Use Topics Alcohol use: No Drug use: Never FAMILY HISTORY Problem Relation Age of Onset Alzheimer's Disease Father other (Other) Daughter brain tumor Allergies Daughter None Son No Ocular Disease No Family History ALLERGIES Allergen Reactions Lisinopril Cough CURRENT MEDICATIONS: tamsulosin (FLOMAX) 0.4 mg Take 1 capsule by mouth daily at bedtime. (Patient not taking: Reported on 11/06/2024) amLODIPine (NORVASC) 2.5 mg tablet Take 1 tablet by mouth once daily. nutritional supplement/fiber (JUICE PLUS FIBRE ORAL) Take by mouth. Takes eight daily MULTI-VITAMIN ORAL Take by mouth once daily. aspirin, enteric coated (ASPIRIN, ENTERIC COATED) 81 mg EC tablet Take 81 mg by mouth once daily. ascorbic acid (VITAMIN C) 500 mg tablet Take 2 tablets by mouth once daily. PHYSICAL EXAMINATION: BP 142/74 Pulse 62 Ht 188 cm (6' 2) Wt 92.3 kg (203 lb 7.8 oz) SpO2 96% BMI 26.13 kg/m? General: Appears comfortable in no apparent cardiopulmonary distress Neck: No JVD, no bruits CVS: S1, S2, No m/r/g Chest: CTAB Abd: Soft, nontender, no masses, BS present Ext: No pedal edema, pedal pulses 2+ bilaterally Neuro: No focal neurological deficits ASSESSMENT/PLAN: 1. S/P MVR (mitral valve repair) - ICD9: V45.89, ICD10: Z98.890 (primary diagnosis) TTE 2021 showed s/p Melgar Mitral valve annuloplasty ring size #35 with trace (trace - 1+) MR. Peak/ mean mitral valve gradients 9/3 mmHg. PHT 119 - Repeat TTE to reassess MV gradients, PHT, etc. Mychart w results - RTC in 6 months 2. Aortic valve insufficiency, etiology of cardiac valve disease unspecified - ICD9: 424.1, ICD10: I35.1 1-2+ AR per TTE 2021 - Repeat TTE to reassess severity. Call with echo 3. Tinnitus - Referral to ENT. He also reports thick mucus that he has to expectorate not alleviated by mucinex. MRI brain showed minimal mucosal thickening in the left maxillary sinus. Partial opacification of the left mastoid air cells, likely inflammatory. Lynette Patel MD, [facility] 12-19-2024 History of Present illness Narrative Radiology Service Progress Note DATE OF SERVICE: December 19, 2024 TIME: 2:08 PM PATIENT IDENTITY VERIFICATION COMPLETED USING TWO (2) STANDARD IDENTIFIERS: Name and Date of confirmed by patient verbally. FALL SCREENING: Has the patient had 2 falls in the last year or 1 fall with injury or currently using an Ambulatory Assistive Device (Walker, Cane, Wheelchair, Crutches, etc.)? No PATIENT GENDER DATA: Assigned male at PATIENT RELEVANT IMPLANT DATA REVIEWED: Yes PATIENT PRESENTS WITH AN IMPLANTABLE OR ATTACHED WING COVERER: No ALLERGIES: Reviewed and unchanged CONTRAST ALLERGY: NO. EXAM: MRI - CONTRAST TYPE: GROUP II PERIPHERAL IV DATA: Ambulatory: A peripheral IV was started in the Right hand with a Angio cath: 22 gauge. RADIOLOGY DEPARTMENT: MR; Exam(s) Completed: Head: IAC/CPA SIGNATURE: RT Ángel(R) PATIENT NAME: Maximo Nixon DATE: December 19, 2024 TIME: 2:08 PM documented in this encounter [facility] 12-19-2024 Note HNO ID: [id number] Author: DONA MORELOS RT(R) Service: ? Author Type: Technologist Type: Progress Notes Filed: 12/19/2024 14:09 Note Text: Radiology Service Progress Note DATE OF SERVICE: December 19, 2024 TIME: 2:08 PM PATIENT IDENTITY VERIFICATION COMPLETED USING TWO (2) STANDARD IDENTIFIERS: Name and Date of confirmed by patient verbally. FALL SCREENING: Has the patient had 2 falls in the last year or 1 fall with injury or currently using an Ambulatory Assistive Device (Walker, Cane, Wheelchair, Crutches, etc.)? No PATIENT GENDER DATA: Assigned male at PATIENT RELEVANT IMPLANT DATA REVIEWED: Yes PATIENT PRESENTS WITH AN IMPLANTABLE OR ATTACHED WING COVERER: No ALLERGIES: Reviewed and unchanged CONTRAST ALLERGY: NO. EXAM: MRI - CONTRAST TYPE: GROUP II PERIPHERAL IV DATA: Ambulatory: A peripheral IV was started in the Right hand with a Angio cath: 22 gauge. RADIOLOGY DEPARTMENT: MR; Exam(s) Completed: Head: IAC/CPA SIGNATURE: RT Ángel(R) PATIENT NAME: Maximo Nixon DATE: December 19, 2024 TIME: 2:08 PM [facility] 12-10-2024 Note HNO ID: [id number] Author: ROSA ELENA RAMON MD Service: ? Author Type: Physician Type: Progress Notes Filed: 12/10/2024 16:02 Note Text: HPI Maximo Nixon is a 84 year old male who presents with tinnitus. Patient complains of predominantly right-sided tinnitus. Patient had an audiogram that showed a slight asymmetry on the left sensorineural as well as reduced discrimination on the left. Patient also has bothered for years by postnasal drip patient was seen by ENT has tried on PPIs Mucinex with no response patient did have a normal CT in 2009. ROS General Weight loss: No Fatigue: No Night sweats:No Cardiac Chest pain:No Fast heart rate:No Swelling in the feet:No Respiratory Short of breath:No Cough:No Wheezing:No Gastrointestinal Nausea:No Vomiting:No Indigestion:No Past medical history, family history, and social history reviewed. PE There were no vitals taken for this visit. General: Patient is awake, alert, NAD. Voice is normal. Skin: normal Eyes: Extraocular motion and Gaze is normal. Ears: Right external auditory canal is normal. TMJ: normal. Right tympanic membranes normal. Left external auditory canal is normal. Left tympanic membrane normal. Nose: Septum is normal. Turbinates are normal. Nasopharynx:normal Oral Cavity/Oropharynx: Lips normal Dentition normal Tongue normal. Tonsils normal. Palate and uvula normal. Pharynx posterior normal Hypopharynx: Base of tongue normal Pyriform sinus normal. Larynx: Vocal cords normal. Epiglottis normal. Post cricoid normal. Salivary glands: Parotid normal. Submandibular and sublingual normal. Thyroid: normal. Lymphatic/Neck: Lymph nodes normal. Neurologic: Facial nerve normal. Audiogram reviewed ASSESSMENT/PLAN: 1. 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 Tinnitus, bilateral - ICD9: 388.30, ICD10: H93.13 3. PND (post-nasal drip) - ICD9: 784.91, ICD10: R09.82 Recommend MRI due to the asymmetry we will also look at the sinuses contact the patient Rosa Elena Ramon MD Findings will be communicated to the referring physician via mail or electronic medical record. [facility] 12-10-2024 History of Present illness Narrative HPI Maximo Nixon is a 84 year old male who presents with tinnitus. Patient complains of predominantly right-sided tinnitus. Patient had an audiogram that showed a slight asymmetry on the left sensorineural as well as reduced discrimination on the left. Patient also has bothered for years by postnasal drip patient was seen by ENT has tried on PPIs Mucinex with no response patient did have a normal CT in 2009. ROS General Weight loss: No Fatigue: No Night sweats:No Cardiac Chest pain:No Fast heart rate:No Swelling in the feet:No Respiratory Short of breath:No Cough:No Wheezing:No Gastrointestinal Nausea:No Vomiting:No Indigestion:No Past medical history, family history, and social history reviewed. PE There were no vitals taken for this visit. General: Patient is awake, alert, NAD. Voice is normal. Skin: normal Eyes: Extraocular motion and Gaze is normal. Ears: Right external auditory canal is normal. TMJ: normal. Right tympanic membranes normal. Left external auditory canal is normal. Left tympanic membrane normal. Nose: Septum is normal. Turbinates are normal. Nasopharynx:normal Oral Cavity/Oropharynx: Lips normal Dentition normal Tongue normal. Tonsils normal. Palate and uvula normal. Pharynx posterior normal Hypopharynx: Base of tongue normal Pyriform sinus normal. Larynx: Vocal cords normal. Epiglottis normal. Post cricoid normal. Salivary glands: Parotid normal. Submandibular and sublingual normal. Thyroid: normal. Lymphatic/Neck: Lymph nodes normal. Neurologic: Facial nerve normal. Audiogram reviewed ASSESSMENT/PLAN: 1. 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 Tinnitus, bilateral - ICD9: 388.30, ICD10: H93.13 3. PND (post-nasal drip) - ICD9: 784.91, ICD10: R09.82 Recommend MRI due to the asymmetry we will also look at the sinuses contact the patient Rosa Elena Ramon MD Findings will be communicated to the referring physician via mail or electronic medical record. documented in this encounter [facility] 12-10-2024 History of Present illness Narrative [facility] [place] AUDIOLOGIC EVALUATION REPORT Name: Maximo Nixon CC#: [id number] Date of Service: 12/10/2024 Date of : 1940 Age: [age] year old Referred by: Rosa Elena Ramon MD Referred for: Evaluation of the cause of disorder of hearing, tinnitus, or balance. Referral documented: No referral on file Patient's major complaints: Hearing loss: decreased hearing in each ear. Having difficulty focusing on conversations and reading. Tinnitus: constant ringing in each ear, right>left had since childhood.fluctuates in volume. Ear pain: denied Aural fullness: denied Otorrhea: denied History of ear infections: denied History of otologic surgeries: denied Dizziness: veering when walking. Occasionally it feels like the room the spinning. Lasts for approxmiately 30 seconds. Last episode approximately 1 week ago. 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 History of chemotherapy or radiation: denied History of head trauma: denied Family history of hearing loss: denied Maximo Nixon was seen for an initial audiologic evaluation. See SmartForm Audiogram for additional reported history and symptoms. Risk of Falls Documentation for over 65 years old: No history of falls reported so minimal to no risk IMPRESSIONS RIGHT EAR: Sensorineural hearing loss LEFT EAR: Sensorineural hearing loss AUDIOLOGIC EVALUATION Following is a brief interpretation of the obtained findings from the audiologic evaluation. Refer to the Auditory Test Record for complete audiometric results. The patient was counseled about the test findings and appropriate audiologic recommendations were made. SUMMARY: Audiogram can be viewed under Forms/Audiology/SmartForm. OTOSCOPY RIGHT EAR: Otoscopic inspection revealed ear canal was clear with an identifiable cone of light. LEFT EAR: Otoscopic inspection revealed ear canal was clear with an identifiable cone of light. TYMPANOMETRY Description of procedure: This test is an objective evaluation of middle ear function. CPT code: 76168 RIGHT EAR: Normal ME pressure with enhanced TM compliance (mobility). LEFT EAR: Normal ME pressure with enhanced TM compliance (mobility). ACOUSTIC REFLEXES Description of procedure: This test is an objective measure of auditory and facial nerve pathways. CPT code: 90263, 50755 RIGHT EAR PROBE EAR: (ipsi right stimulus ear; contralateral left stimulus ear): Acoustic Reflex Pattern Did not test Acoustic Reflex Decay (left stimulus ear): Did not test. LEFT EAR PROBE EAR: (ipsi left stimulus ear; contralateral right stimulus ear): Acoustic Reflex Pattern Did not test Acoustic Reflex Decay (right stimulus ear):Did not test. PURE TONE AUDIOMETRY AND SPEECH TESTING Description of procedure: This test is an objective evaluation hearing sensitivity via air and bone conduction and speech recognition testing. CPT code:89238 RIGHT EAR: Hearing Sensitivity: WNL sloping to profound SNHL with conductive component noted at 1000 Hz only. Word Recognition Score: Fair (70-79%). WRS is consistent with hearing sensitivity. Words were presented at 70 dB HL is above (greater than or equal to 60 dB HL) intensity level for average conversational speech. The NU-6 Word List (25 words) was used. LEFT EAR: Hearing Sensitivity: WNL sloping to profound SNHL with mixed component noted at 2000 Hz only. Word Recognition Score: Very Poor (0-59%). WRS is poorer than expected given hearing sensitivity. Words were presented at 85 dB (masked) HL which is above (greater than or equal to 60 dB HL) intensity level for average conversational speech. The NU-6 Word List (25 words) was used. RECOMMENDATIONS * Continue medical follow-up with Rosa Elena Ramon MD. * The patient was counseled regarding the need to continue to monitor hearing and have regular hearing assessments. * The patient was counseled regarding effective communication strategies to enhance communication ability. * Call [phone] to schedule an appointment to assess your need for hearing aids. Request a HAE appointment. * Encouraged patient to reach out to insurance provider to determine if they are eligible for a hearing aid benefit. Patient was advised that if they return to [facility], the cost of hearing aids would likely be [id number]. Yusef Marquez, [facility] Clinical and Senior Hearing Implant Publications Designer copied to: Rosa Elena Ramon MD [facility]ONT Abbrev- iation Definition Degree of hearing sensitivity dB range WNL within normal limits WNL 0 - 20 SNHL sensorineural hearing loss Mild 20-40 CHL conductive hearing loss Moderate 40-55 MHL mixed hearing loss Moderately-Severe 55-70 WRS word recognition score Severe 70-90 ME middle ear Profound 90 + TM tympanic membrane documented in this encounter [facility] 12-10-2024 Note HNO ID: [id number] Author: ANI LIU AUD Service: ? Author Type: Publications Designer Type: Progress Notes Filed: 12/10/2024 17:35 Note Text: [facility] [place] AUDIOLOGIC EVALUATION REPORT Name: Maximo Nixon [facility]#: [id number] Date of Service: 12/10/2024 Date of : 1940 Age: [age] year old Referred by: Rosa Elena Ramon MD Referred for: Evaluation of the cause of disorder of hearing, tinnitus, or balance. Referral documented: No referral on file Patient's major complaints: Hearing loss: decreased hearing in each ear. Having difficulty focusing on conversations and reading. Tinnitus: constant ringing in each ear, right>left had since childhood.fluctuates in volume. Ear pain: denied Aural fullness: denied Otorrhea: denied History of ear infections: denied History of otologic surgeries: denied Dizziness: veering when walking. Occasionally it feels like the room the spinning. Lasts for approxmiately 30 seconds. Last episode approximately 1 week ago. 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 History of chemotherapy or radiation: denied History of head trauma: denied Family history of hearing loss: denied Maximo Nixon was seen for an initial audiologic evaluation. See SmartForm Audiogram for additional reported history and symptoms. Risk of Falls Documentation for over 65 years old: No history of falls reported so minimal to no risk IMPRESSIONS RIGHT EAR: Sensorineural hearing loss LEFT EAR: Sensorineural hearing loss AUDIOLOGIC EVALUATION Following is a brief interpretation of the obtained findings from the audiologic evaluation. Refer to the Auditory Test Record for complete audiometric results. The patient was counseled about the test findings and appropriate audiologic recommendations were made. SUMMARY: Audiogram can be viewed under Forms/Audiology/[facility]. OTOSCOPY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 (VITAMIN C) 500 mg tablet Take 2 tablets by mouth once daily. No current facility-administered medications for this visit. 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, 2012 PND (post-nasal drip) S/P MVR (mitral valve repair) Vasomotor rhinitis PAST SURGICAL HISTORY Procedure Laterality Date COLONOSCOPY FLX DX W/COLLJ SPEC WHEN PFRMD 05/06/11 EGD TRANSORAL BIOPSY SINGLE/MULTIPLE 05/06/11 ESOPHAGOGASTRODUODENOSCOPY TRANSORAL DIAGNOSTIC 11/28/2009 EGD ESOPHAGOGASTRODUODENOSCOPY TRANSORAL DIAGNOSTIC 02/13/2020 EGD PAST SURGICAL HISTORY OF 2006 bilateral TKA PAST SURGICAL HISTORY OF Right 2003 inguinal hernia PAST SURGICAL HISTORY OF 10/2013 heart valve repair [facility] MAIN RPR 1ST INGUN HRNA AGE 7 YRS/> REDUCIBLE 08/25/2020 Hernia repair, inguinal XCAPSL CTRC RMVL INSJ IO LENS PROSTH W/O ECP Right 06/04/2015 Cataract Extraction with PC IOL XCAPSL CTRC RMVL INSJ IO LENS PROSTH W/O ECP 07/02/2015 Cataract Extraction with PC IOL OS FAMILY HISTORY Problem Relation Age of Onset Alzheimer's Disease Father other (Other) Daughter brain tumor Allergies Daughter None Son No Ocular Disease No Family History Social History Tobacco Use Smoking status: Never Smokeless tobacco: Never Vaping Use Vaping status: Never Used Substance Use Topics Alcohol use: No Drug use: No Reviewed current medications, allergies, past medical history, surgical history, family history and social history today. REVIEW OF SYSTEMS All other reviewed and negative other than HPI. HEALTH MAINTENANCE: Reviewed health maintenance issues today and recommended the following in detail. There are no preventive care reminders to display for this patient. VITALS: BP 134/86 Pulse 63 Ht 188 cm (6' 2) Wt 91.8 kg (202 lb 6.4 oz) SpO2 98% BMI 25.99 kg/m Last 4 Encounter Wt Readings: Date: Wt: 08/29/2024 91.2 kg (201 lb) 04/02/2024 93.9 kg (207 lb) 03/12/2024 94.8 kg (209 lb) 09/07/2023 90.7 kg (200 lb) PHYSICAL EXAMINATION: General appearance: Well appearing, alert, in no acute distress, well-hydrated, well nourished. Skin: Skin color, texture, turgor normal, no suspicious rashes or lesions Head: Normocephalic, no masses, lesions, tenderness or abnormalities Lungs: Lungs clear to auscultation. No wheezing, rhonchi, rales Heart: RRR without murmur, gallop, or rubs. No ectopy Abdomen: Normal abdominal exam, Abdomen soft, non-tender. Bowel sounds normal. No masses, organomegaly Extremities: No deformities, edema, skin discoloration, clubbing or cyanosis. Good capillary refill. ASSESSMENT/PLAN: 1. Essential hypertension, benign - ICD9: 401.1, ICD10: I10 (primary diagnosis) - Controlled - Continue current medications - COMPLETE BLOOD COUNT AND DIFFERENTIAL - COMPREHENSIVE METABOLIC PANEL - LIPID PANEL BASIC 2. Postoperative atrial fibrillation (HCC) - ICD9: 997.1, 427.31, ICD10: I97.89, I48.91 - COMPLETE BLOOD COUNT AND DIFFERENTIAL - COMPREHENSIVE METABOLIC PANEL 3. Vasomotor rhinitis - ICD9: 477.9, ICD10: J30.0 - stable. - CONSULT TO ENT 4. Tinnitus, unspecified laterality - ICD9: 388.30, ICD10: H93.19 - stable. - CONSULT TO ENT Diego Huffman MD documented in this encounter [facility] 08-29-2024 Instructions Ana Resendez APRN.CNP - 08/29/2024 1:34 PM EDT Eat regularly and have healthy snacks in between meals. Stay well hydrated. Schedule back with urology. Follow-up with cardiology as planned. Follow-up with Dr. Huffman as planned. documented in this encounter [facility] 08-29-2024 Note HNO ID: [id number] Author: ANA RESENDEZ APRN.CNP Service: ? Author Type: Nurse Practitioner Type: Progress Notes Filed: 08/29/2024 14:57 Note Text: This is a 84 year old male who presents today with: Patient presents with: ED Follow-up HISTORY OF PRESENT ILLNESS: Maximo Nixon is a 84 year old male. Patient presents with: ED Follow-up Pt presents today for ER follow-up. Patient initially presented to urgent care on 08/27/2024 with complaints of some dizziness. He was referred to the emergency room. He presented to [facility] on 08/27/2024 with complaints of lightheadedness and dizziness that persisted for the past week. Reports that when he would get up and move, he would become lightheaded. Symptoms had worsened the previous day. He also noted to have some spots in his vision that had resolved. EKG showed normal sinus rhythm with a rate of 60. There was no acute changes. Orthostatic vital signs were obtained and negative. CBC was reviewed and within normal limits. BMP was reviewed and was within normal limits. High-sensitivity troponin was reviewed and was normal at 11. Upon reassessment, patient was feeling better. He was discharged to home. Refers that he has been feeling better the last couple of days. Refers that he thinks his symptoms were related to not eating right. Refers that he was only eating about once a day. Since he has been eating more regularly, his symptoms are resolved. He does have an upcoming follow-up with cardiology. He does complaint of urinary frequency. This has been ongoing. Had urine dip in the ER. He last saw urology in 03/2024 -- and was to follow-up in 4 weeks, but doesn't look like this has been done. 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, 2012 PND (post-nasal drip) S/P MVR (mitral valve repair) Vasomotor rhinitis PAST SURGICAL HISTORY Procedure Laterality Date COLONOSCOPY FLX DX W/COLLJ SPEC WHEN PFRMD 05/06/11 EGD TRANSORAL BIOPSY SINGLE/MULTIPLE 05/06/11 ESOPHAGOGASTRODUODENOSCOPY TRANSORAL DIAGNOSTIC 11/28/2009 EGD ESOPHAGOGASTRODUODENOSCOPY TRANSORAL DIAGNOSTIC 02/13/2020 EGD PAST SURGICAL HISTORY OF 2006 bilateral TKA PAST SURGICAL HISTORY OF Right 2003 inguinal hernia PAST SURGICAL HISTORY OF 10/2013 heart valve repair [facility] MAIN RPR 1ST INGUN HRNA AGE 5 YRS/> REDUCIBLE 08/25/2020 Hernia repair, inguinal XCAPSL CTRC RMVL INSJ IO LENS PROSTH W/O ECP Right 06/04/2015 Cataract Extraction with PC IOL XCAPSL CTRC RMVL INSJ IO LENS PROSTH W/O ECP 07/02/2015 Cataract Extraction with PC IOL OS ALLERGIES Lisinopril MEDICATIONS Current Outpatient Medications Medication Sig amLODIPine (NORVASC) 2.5 mg tablet Take 1 tablet by mouth once daily. nutritional supplement/fiber (JUICE PLUS FIBRE ORAL) Take by mouth. MULTI-VITAMIN ORAL Take by mouth. aspirin, enteric coated (ASPIRIN, ENTERIC COATED) 81 mg EC tablet Take 81 mg by mouth once daily. ascorbic acid (VITAMIN C) 500 mg tablet Take 2 tablets by mouth once daily. nystatin (MYCOSTATIN) cream Apply 1 application to affected area two times a day. (Patient not taking: Reported on 04/02/2024) Ipratropium [place] (ATROVENT) 21 mcg (0.03 %) nasal spray Use 2 Sprays in the nose twice daily. (Patient not taking: Reported on 04/02/2024) loratadine (CLARITIN) 10 mg tablet Take 1 tablet by mouth once daily. (Patient not taking: Reported on 04/02/2024) No current facility-administered medications for this visit. FAMILY HISTORY Problem Relation Age of Onset Alzheimer's Disease Father other (Other) Daughter brain tumor Allergies Daughter None Son No Ocular Disease No Family History Social History Tobacco Use Smoking status: Never Smokeless tobacco: Never Vaping Use Vaping status: Never Used Substance Use Topics Alcohol use: No Drug use: No EXAM: BP 142/82 (BP Site: Left Arm, BP Position: Sitting, BP Cuff Size: Regular Adult) Pulse (!) 59 Resp 16 Wt 91.2 kg (201 lb) SpO2 96% BMI 25.81 kg/m? PHYSICAL EXAM: General Appearance: Well appearing, alert, in no acute distress, well-hydrated, well nourished.. Skin: Skin color, texture, turgor normal, no suspicious rashes or lesions. Head: Normocephalic, no masses, lesions, tenderness or abnormalities. Eyes: Anicteric sclera. Pupils are equally round and reactive to light. Extraocular movements are intact. . Ears: External ears normal, canals clear. Normal TMs bilaterally. Oropharynx: Lips, mucosa, and tongue normal, teeth and gums normal, oropharynx normal. Neck: Supple, no adenopat (more content not included)... [facility] 08-29-2024 History of Present illness Narrative This is a 84 year old male who presents today with: Patient presents with: ED Follow-up HISTORY OF PRESENT ILLNESS: Maximo Nixon is a 84 year old male. Patient presents with: ED Follow-up Pt presents today for ER follow-up. Patient initially presented to urgent care on 08/27/2024 with complaints of some dizziness. He was referred to the emergency room. He presented to [facility] on 08/27/2024 with complaints of lightheadedness and dizziness that persisted for the past week. Reports that when he would get up and move, he would become lightheaded. Symptoms had worsened the previous day. He also noted to have some spots in his vision that had resolved. EKG showed normal sinus rhythm with a rate of 60. There was no acute changes. Orthostatic vital signs were obtained and negative. CBC was reviewed and within normal limits. BMP was reviewed and was within normal limits. High-sensitivity troponin was reviewed and was normal at 11. Upon reassessment, patient was feeling better. He was discharged to home. Refers that he has been feeling better the last couple of days. Refers that he thinks his symptoms were related to not eating right. Refers that he was only eating about once a day. Since he has been eating more regularly, his symptoms are resolved. He does have an upcoming follow-up with cardiology. He does complaint of urinary frequency. This has been ongoing. Had urine dip in the ER. He last saw urology in 03/2024 -- and was to follow-up in 4 weeks, but doesn't look like this has been done. 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, 2012 PND (post-nasal drip) S/P MVR (mitral valve repair) Vasomotor rhinitis PAST SURGICAL HISTORY Procedure Laterality Date COLONOSCOPY FLX DX W/COLLJ SPEC WHEN PFRMD 05/06/11 EGD TRANSORAL BIOPSY SINGLE/MULTIPLE 05/06/11 ESOPHAGOGASTRODUODENOSCOPY TRANSORAL DIAGNOSTIC 11/28/2009 EGD ESOPHAGOGASTRODUODENOSCOPY TRANSORAL DIAGNOSTIC 02/13/2020 EGD PAST SURGICAL HISTORY OF 2007 bilateral TKA PAST SURGICAL HISTORY OF Right 2002 inguinal hernia PAST SURGICAL HISTORY OF 10/2013 heart valve repair [facility] MAIN RPR 1ST INGUN HRNA AGE 5 YRS/> REDUCIBLE 08/25/2020 Hernia repair, inguinal XCAPSL CTRC RMVL INSJ IO LENS PROSTH W/O ECP Right 06/04/2015 Cataract Extraction with PC IOL XCAPSL CTRC RMVL INSJ IO LENS PROSTH W/O ECP 07/02/2015 Cataract Extraction with PC IOL OS ALLERGIES Lisinopril MEDICATIONS Current Outpatient Medications Medication Sig amLODIPine (NORVASC) 2.5 mg tablet Take 1 tablet by mouth once daily. nutritional supplement/fiber (JUICE PLUS FIBRE ORAL) Take by mouth. MULTI-VITAMIN ORAL Take by mouth. aspirin, enteric coated (ASPIRIN, ENTERIC COATED) 81 mg EC tablet Take 81 mg by mouth once daily. ascorbic acid (VITAMIN C) 500 mg tablet Take 2 tablets by mouth once daily. nystatin (MYCOSTATIN) cream Apply 1 application to affected area two times a day. (Patient not taking: Reported on 04/02/2024) Ipratropium [place] (ATROVENT) 21 mcg (0.03 %) nasal spray Use 2 Sprays in the nose twice daily. (Patient not taking: Reported on 04/02/2024) loratadine (CLARITIN) 10 mg tablet Take 1 tablet by mouth once daily. (Patient not taking: Reported on 04/02/2024) No current facility-administered medications for this visit. FAMILY HISTORY Problem Relation Age of Onset Alzheimer's Disease Father other (Other) Daughter brain tumor Allergies Daughter None Son No Ocular Disease No Family History Social History Tobacco Use Smoking status: Never Smokeless tobacco: Never Vaping Use Vaping status: Never Used Substance Use Topics Alcohol use: No Drug use: No EXAM: BP 142/82 (BP Site: Left Arm, BP Position: Sitting, BP Cuff Size: Regular Adult) Pulse (!) 59 Resp 16 Wt 91.2 kg (201 lb) SpO2 96% BMI 25.81 kg/m PHYSICAL EXAM: General Appearance: Well appearing, alert, in no acute distress, well-hydrated, well nourished.. Skin: Skin color, texture, turgor normal, no suspicious rashes or lesions. Head: Normocephalic, no masses, lesions, tenderness or abnormalities. Eyes: Anicteric sclera. Pupils are equally round and reactive to light. Extraocular movements are intact. . Ears: External ears normal, canals clear. Normal TMs bilaterally. Oropharynx: Lips, mucosa, and tongue normal, teeth and gums normal, oropharynx normal. Neck: Supple, no adenopathy; thyroid symmetric, normal size, no bruits. Lungs: Lungs clear to auscultation. No wheezing, rhonchi, rales. Heart: RRR without murmur, gallop, or rubs. No ectopy. Abdomen: Abdomen soft, non-tender. Bowel sounds normal. No masses, organomegaly. Extremities: No deformities, edema, skin discoloration, clubbing or cyanosis. Good capillary refill. . Neurologic: Gait normal. ASSESSMENT/PLAN: 1. Dizziness - ICD9: 780.4, ICD10: R42 (primary diagnosis) Resolved. Encouraged to eat regularly and have healthy snacks in between meals. Stay well hydrated. Notify provider if symptoms reoccur -- otherwise follow-up with cardiology as planned. 2. Encounter for immunization - ICD9: V03.89, ICD10: Z23 - [employer] COVID-19 VACCINE AGE 12+ YR (COMIRNATY) 3. Essential hypertension, benign - ICD9: 401.1, ICD10: I10 Stable. - Continue current medications - Recommend home blood pressure monitoring, to bring results to next visit - Encouraged sodium restriction, DASH or Mediterranean diet - Recommend regular aerobic exercise 4. S/P MVR (mitral valve repair) - ICD9: V45.89, ICD10: Z98.890 Follow-up with cardiology, as scheduled. 5. Urgency of urination - ICD9: 788.63, ICD10: R39.15 Chronic in nature. Encouraged to reschedule w/ urology to discuss options. Discussed treatment plan and patient voices understanding. Patient's questions answered appropriately. Medications and potential side effects were discussed and patient voices understanding. Return to the office as scheduled or as needed for worsening/no improvement. Ana Resendez APRN.CHILD CARE GROUP LEADER Duplicate. documented in this encounter [facility] 08-29-2024 Note HNO ID: [id number] Author: CHEYENNE ZAVALA MA Service: ? Author Type: Newspaper Photographer Type: Progress Notes Filed: 08/29/2024 14:57 Note Text: Duplicate. [facility] 08-27-2024 Note HNO ID: [id number] Author: LEONARDA DUTTA APRN.CHILD CARE GROUP LEADER Service: ? Author Type: Nurse Practitioner Type: Progress Notes Filed: 08/27/2024 17:11 Note Text: Called to triage patient by PSS staff. 84 year old male with PMH HTN, afib, GERD presents for complaints of dizziness and lightheaded Acute onset of symptoms has been in the past 24 hours He is experiencing floaters. Given concerns for intracranial process and need for higher level of care than express, Has been referred to [facility] 08-27-2024 History of Present illness Narrative Called to triage patient by [facility]SS staff. 84 year old male with PMH HTN, afib, GERD presents for complaints of dizziness and lightheaded Acute onset of symptoms has been in the past 24 hours He is experiencing floaters. Given concerns for intracranial process and need for higher level of care than [facility], Has been referred to [facility] documented in this encounter [facility] 07-31-2024 Note HNO ID: [id number] Author: FIDENCIO RENEE PA-C Service: ? Author Type: Physician Mine Technician Type: Progress Notes Filed: 07/31/2024 15:23 Note Text: Flu shot ordered. Fidencio Renee PA-C 07/31/2024 [facility] 07-31-2024 History of Present illness Narrative Flu shot ordered. Fidencio Renee PA-C 07/31/2024 documented in this encounter [facility] 07-11-2024 Telephone encounter Note Prescription Refill Information The patient has been identified by name and date of : Yes Caregiver verified no other encounters exist for this prescription request: Yes Caregiver confirmed with patient/requestor that no other refills are due, in the near future, with this provider at this time: Yes The last office visit in the department: 03/12/24 Does the patient have a future office visit with this provider/department: Yes Requested Prescriptions Pending Prescriptions Disp Refills amLODIPine (NORVASC) 2.5 mg tablet 90 tablet 3 Sig: Take 1 tablet by mouth once daily. Marci Curry [facility] July 11, 2024 8:40 AM [facility] 07-11-2024 Miscellaneous Notes Prescription Refill Information The patient has been identified by name and date of : Yes Caregiver verified no other encounters exist for this prescription request: Yes Caregiver confirmed with patient/requestor that no other refills are due, in the near future, with this provider at this time: Yes The last office visit in the department: 03/12/24 Does the patient have a future office visit with this provider/department: Yes Requested Prescriptions Pending Prescriptions Disp Refills amLODIPine (NORVASC) 2.5 mg tablet 90 tablet 3 Sig: Take 1 tablet by mouth once daily. Marci Henry July 11, 2024 8:40 AM documented in this encounter [facility] 04-02-2024 Instructions Cornelius Dasilva APRN.CNP, DNP - 04/02/2024 11:33 AM EDT Follow up with Cornelius Dasilva APRN.CNP, DNP in 3 months Consult to pelvic floor PT placed. I discussed treatment options at length including r/b/a of each: To include Medication therapy and the role of further evaluation with TRUS and cysto if indicated. Return to the clinic or seek care at Express[facility]Urgent Care for any worsening signs or symptoms: such as fevers, chills, worsening pain, gross blood in urine or worsening urinary symptoms. For severe symptoms seek care at the closest ER. Plan of care, medicaiton side effects and management reviewed with patient. Healthy Habits: Recommend regular physical activity, nutrition and healthy eating habits. Consume a variety of foods every day focusing on fruits, vegetables and lean meats). Eat foods low in fat, saturated fat and cholesterol. Eat a limited amount of salt and sodium. Drink adequate amounts of water and limit sugary drinks. Exercise portion control in meal selection. Establish a mindset of a wellness approach to health. Thank you for allowing me to provide your care today. I look forward to seeing you again and maintaining your health. Cornelius Dasilva APRN.CNP, DNP documented in this encounter [facility] 04-02-2024 Nurse Note Bladder scan obtained 0 ml of urine [facility] 04-02-2024 Nurse Note Bladder scan obtained 0 ml of urine documented in this encounter [facility] 04-02-2024 History of Present illness Narrative COUNT INCLUDES THE [facility] MALE PATIENT - HISTORY AND PHYSICAL EXAMINATION PATIENT: Maximo Nixon (83 year old) 04/02/2024 PCP: Diego Huffman MD Consultation requested by Dr. Diego Huffman [address] [facility] [id number] for an opinion regarding BPH and my final recommendations will be communicated back to the requesting physician by way of shared Medical record or letter via [place] mail. CHIEF COMPLAINT: BPH/LUTS HISTORY OF PRESENT ILLNESS: 83 year old year old male with BPH/LUTS. Previously seen by Paul Chatterjee in Jul 2023. Reported increased frequency and Nocturia, previous Green Light PVP with Jose A. Dr. Segovia consult 2015 and recommended try OAB medication, discussed trial of Myrbetriq and increase water intake for 3 months if still having urgency recommend new UDS and Cystoscopy and possible Botox Injection. Tried Ditropan XL (10, 15 mg)- pt did not notice an improvement in his symptoms Started on Mybetriq by Wood Chatterjee and told to follow up in 3 months. Did not follow up in 3 months. States that Myrbetriq was expensive and didn't help him. Didn't go back because test that Paul was talking about doing he had done before and wasn't helpful. Dr. Naranjo discussed about consideration for Botox and/or InterStim per his last note in 2014. S/p greenlight laser 02/26/[address] Naranjo. Since his greenlight procedure he has had intractable urgency/frequency. Here today to discuss options. PRESENTING HISTORY: Hematuria: none Obstructive voiding symptoms: weak stream. Irritative voiding symptoms: frequency and urgency Urinary retention: no Urinary incontinence: no Urinary tract infection: no Patient Entered Questionnaires: INTERNATIONAL PROSTATE SYMPTOM SCORE (I-PSS) 1)INCOMPLETE EMPTYING Over the past month, how often have you had a sensation of not emptying your bladder completely after you finished urinating? SCORE: 0- Not at all 2)FREQUENCY Over the past month, how often have you had to urinate again less than two hours after you finished urinating? SCORE: 3- About half the time 3)INTERMITTENCY Over the past month, how often have you found you stopped and started again several times when you urinated? SCORE: 4- More than half the time 4)URGENCY Over the past month, how often have you found it difficult to postpone urination? SCORE: 5- Almost always 5)WEAK STREAM Over the past month, how often have you had a weak stream? SCORE: 5- Almost always 6)STRAINING Over the past month, how often have you had to push or strain to begin urination SCORE: 0- Not at all 7)NOCTURIA Over the past month, how many times did you most typically get up to urinate from the time you went to bed at night until the time you get up in the morning? SCORE:3 TOTAL I-PSS SCORE: 20 QUALITY OF LIFE DUE TO URINARY SYMPTOMS If you were to spend the rest of yur life with your urinary condition just the way it is now, how would you feel about that? 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, 2012 PND (post-nasal drip) S/P MVR (mitral valve repair) Vasomotor rhinitis PAST SURGICAL HISTORY Procedure Laterality Date COLONOSCOPY FLX DX W/COLLJ SPEC WHEN PFRMD 05/06/11 EGD TRANSORAL BIOPSY SINGLE/MULTIPLE 05/06/11 ESOPHAGOGASTRODUODENOSCOPY TRANSORAL DIAGNOSTIC 11/28/2009 EGD ESOPHAGOGASTRODUODENOSCOPY TRANSORAL DIAGNOSTIC 02/13/2020 EGD PAST SURGICAL HISTORY OF 2007 bilateral TKA PAST SURGICAL HISTORY OF Right 2003 inguinal hernia PAST SURGICAL HISTORY OF 10/2013 heart valve repair [facility] MAIN RPR 1ST INGUN HRNA AGE 5 YRS/> REDUCIBLE 08/25/2020 Hernia repair, inguinal XCAPSL CTRC RMVL INSJ IO LENS PROSTH W/O ECP Right 06/04/2015 Cataract Extraction with PC IOL XCAPSL CTRC RMVL INSJ IO LENS PROSTH W/O ECP 07/02/2015 Cataract Extraction with PC IOL OS Social History Tobacco Use Smoking status: Never Smokeless tobacco: Never Vaping Use Vaping Use: Never used Substance Use Topics Alcohol use: No Drug use: No FAMILY HISTORY Problem Relation Age of Onset Alzheimer's Disease Father other (Other) Daughter brain tumor Allergies Daughter None Son No Ocular Disease No Family History MEDICATIONS: Current Outpatient Medications Medication Sig amLODIPine (NORVASC) 2.5 mg tablet Take 1 tablet by mouth once daily. nutritional supplement/fiber (JUICE PLUS FIBRE ORAL) Take by mouth. MULTI-VITAMIN ORAL Take by mouth. aspirin, enteric coated (ASPIRIN, ENTERIC COATED) 81 mg EC tablet Take 81 mg by mouth once daily. ascorbic acid (VITAMIN C) 500 mg tablet Take 2 tablets by mouth once daily. nystatin (MYCOSTATIN) cream Apply 1 application to affected area two times a day. (Patient not taking: Reported on 04/02/2024) Ipratropium [place] (ATROVENT) 21 mcg (0.03 %) nasal spray Use 2 Sprays in the nose twice daily. (Patient not taking: Reported on 04/02/2024) loratadine (CLARITIN) 10 mg tablet Take 1 tablet by mouth once daily. (Patient not taking: Reported on 04/02/2024) No current facility-administered medications for this visit. LABS: Glucose Urine-ED(POC) Negative 08/02/2023 Bilirubin Urine-ED(POC) Negative 08/02/2023 Ketone Urine-ED(POC) Negative 08/02/2023 Specific [place] Urine-ED(POC) 1.025 08/02/2023 HEMOGLOBIN/BLOOD UA (POCT) Negative 08/02/2023 pH Urine-ED(POC) 5.5 08/02/2023 Protein Urine-ED(POC) Negative 08/02/2023 Urobilinogen Urine-ED(POC) 1.0 08/02/2023 Nitrates Urine-ED(POC) Negative 08/02/2023 Leukocytes Urine-ED(POC) Negative 08/02/2023 COLOR UA (POCT) Dark yellow 08/02/2023 CLARITY UA (POCT) Clear 08/02/2023 Creatinine Creatinine Date Value Ref Range Status 03/14/2024 1.12 0.73 - 1.22 mg/dL Final 03/02/2023 1.01 0.73 - 1.22 mg/dL Final 03/02/2022 1.01 0.73 - 1.22 mg/dL Final 03/02/2022 1.04 0.73 - 1.22 mg/dL Final PSA PSA (ng/mL) Date Value 12/10/2013 1.04 12/21/2012 1.17 OFFICE DATA: POST-VOID RESIDUAL BLADDER VOLUME: YES, 0 cc IMAGING: No results found. Review of Systems: PAIN ASSESSMENT: CURRENTLY HAVING NO PAIN GENERAL: No weight loss, malaise or fevers GI: No nausea, vomiting MUSCULOSKELETAL: Negative for generalized joint pain SKIN: Negative for rash HEMATOLOGY/LYMPHOLOGY: Negative for swollen nodes All other systems reviewed and noncontributory PHYSICAL EXAMINATION: VITALS: Ht 188 cm (6' 2) Wt 93.9 kg (207 lb) BMI 26.58 kg/m GENERAL: alert, no distress, normal affect RESPIRATORY: normal effort RECTAL: approximately 45 g prostate, no nodules PELVIC FLOOR: good tone, no tenderness EXTREMITIES: normal SKIN: normal NEUROLOGIC: normal ASSESSMENT/PLAN: 1. Benign prostatic hyperplasia with nocturia - ICD9: 600.01, 788.43, ICD10: N40.1, R35.1 (primary diagnosis) MDM: The patient has lower urinary tract symptoms suggestive of benign prostatic hyperplasia. UA normal/DARON Normal/No FHX of prostate cancer. Not interested in meds, UDS or Cysto/TRUS. Desires trial of [place] and formal PFPT. I discussed treatment options at length including r/b/a of each. I also discussed the role of further evaluation with UDS, TRUS and cysto if indicated. Discussed the role of pharmacotherapy, including risks, benefits and alternatives: Alpha-dariel therapy [e.g. Tamsulosin] - potential risks of dizziness, asthenia, orthostasis, and retrograde ejaculation. Plan: [place] and PFPT Declined meds and UDS/CYSTO/TRUS follow up in 4 weeks. - BLADDER SCAN - CONSULT TO PHYSICAL THERAPY 2. Urgency of urination - ICD9: 788.63, ICD10: R39.15 Chronic - not well controlled. follow up with Cornelius Dasilva APRN.KIANA MANUEL in 4 weeks. Plan as above. - BLADDER SCAN - CONSULT TO PHYSICAL THERAPY Cornelius Dasilva DNP, KALEB Department of Urology [facility] documented in this encounter [facility] 03-15-2024 Miscellaneous Notes TC to patient who verbalized understanding of providers message and has no questions at this time. AMANDA Richardson Let him know his labs are ok documented in this encounter [facility] 03-12-2024 Instructions Diego Huffman MD - 03/12/2024 10:55 AM EDT Can get RSV vaccine at a pharmacy. Get fasting labs. documented in this encounter [facility] 03-12-2024 History of Present illness Narrative Patient presents with: 6 Month Exam HPI: Patient presents today for office visit for follow up HTN: Patient is compliant with meds Yes Monitors bp at home: No. Denies side effects: Yes. Chest pain: had some rib pain that was very short lived. No chest pain with exertion. Dyspnea: No. Edema: No. Palpitations: No. Syncope: No. Headache: No. Dizziness: sometimes may get a lightheaded feeling. Urology: states that Myrbetriq was expensive and didn't help him. Didn't go back because test that Paul was talking about doing he had done before and wasn't helpful. Cardio: Didn't keep cardio appt and doesn't believe he has seen a counsellors. He is overdue to follow with his counsellors. Will get it set back up. Gerd: no heartburn. MEDICATIONS: Current Outpatient Medications Medication Sig amLODIPine (NORVASC) 2.5 mg tablet Take 1 tablet by mouth once daily. MULTI-VITAMIN ORAL Take by mouth. aspirin, enteric coated (ASPIRIN, ENTERIC COATED) 81 mg EC tablet Take 81 mg by mouth once daily. ascorbic acid (VITAMIN C) 500 mg tablet Take 2 tablets by mouth once daily. nystatin (MYCOSTATIN) cream Apply 1 application to affected area two times a day. mirabegron (MYRBETRIQ) 50 mg Tb24 Take 1 tablet by mouth once daily. (Patient not taking: Reported on 03/12/2024) nutritional supplement/fiber (JUICE PLUS FIBRE ORAL) Take by mouth. Ipratropium [place] (ATROVENT) 21 mcg (0.03 %) nasal spray Use 2 Sprays in the nose twice daily. omeprazole (PRILOSEC) 40 mg capsule Take 1 capsule by mouth once daily. (Patient not taking: Reported on 09/07/2023) loratadine (CLARITIN) 10 mg tablet Take 1 tablet by mouth once daily. No current facility-administered medications for this visit. 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, 2012 PND (post-nasal drip) S/P MVR (mitral valve repair) Vasomotor rhinitis PAST SURGICAL HISTORY Procedure Laterality Date COLONOSCOPY FLX DX W/COLLJ SPEC WHEN PFRMD 05/06/11 EGD TRANSORAL BIOPSY SINGLE/MULTIPLE 05/06/11 ESOPHAGOGASTRODUODENOSCOPY TRANSORAL DIAGNOSTIC 11/28/2009 EGD ESOPHAGOGASTRODUODENOSCOPY TRANSORAL DIAGNOSTIC 02/13/2020 EGD PAST SURGICAL HISTORY OF 2006 bilateral TKA PAST SURGICAL HISTORY OF Right 2002 inguinal hernia PAST SURGICAL HISTORY OF 10/2013 heart valve repair [facility] MAIN RPR 1ST INGUN HRNA AGE 5 YRS/> REDUCIBLE 08/25/2020 Hernia repair, inguinal XCAPSL CTRC RMVL INSJ IO LENS PROSTH W/O ECP Right 06/04/2015 Cataract Extraction with PC IOL XCAPSL CTRC RMVL INSJ IO LENS PROSTH W/O ECP 07/02/2015 Cataract Extraction with PC IOL OS FAMILY HISTORY Problem Relation Age of Onset Alzheimer's Disease Father other (Other) Daughter brain tumor Allergies Daughter None Son No Ocular Disease No Family History Social History Tobacco Use Smoking status: Never Smokeless tobacco: Never Vaping Use Vaping Use: Never used Substance Use Topics Alcohol use: No Drug use: No Reviewed current medications, allergies, past medical history, surgical history, family history and social history today. REVIEW OF SYSTEMS No falls. No gi issues. All other reviewed and negative other than HPI. HEALTH MAINTENANCE: Reviewed health maintenance issues today and recommended the following in detail. RSV Vaccine(1 - 1-dose 60+ series) Never done Advance Directive Discussion -his and son. Behavioral Health Screening Never done VITALS: BP 136/82 Pulse 61 Wt 94.8 kg (209 lb) SpO2 92% BMI 27.57 kg/m Last 4 Encounter Wt Readings: Date: Wt: 09/07/2023 90.7 kg (200 lb) 08/02/2023 90.4 kg (199 lb 3.2 oz) 07/08/2023 89.8 kg (198 lb) 03/02/2023 92.4 kg (203 lb 12.8 oz) PHYSICAL EXAMINATION: General appearance: Well appearing, alert, in no acute distress, well-hydrated, well nourished. Skin: Skin color, texture, turgor normal, no suspicious rashes or lesions Lungs: Lungs clear to auscultation. No wheezing, rhonchi, rales Heart: RRR without murmur, gallop, or rubs. No ectopy Abdomen: Normal abdominal exam, Abdomen soft, non-tender. Bowel sounds normal. No masses, organomegaly Extremities: No deformities, edema, skin discoloration, clubbing or cyanosis. Good capillary refill. ASSESSMENT/PLAN: 1. Essential hypertension, benign - ICD9: 401.1, ICD10: I10 (primary diagnosis) - Controlled - Continue current medications 2. S/P MVR (mitral valve repair) - ICD9: V45.89, ICD10: Z98.890 - see cardiology 3. Benign prostatic hyperplasia with nocturia - ICD9: 600.01, 788.43, ICD10: N40.1, R35.1 - CONSULT TO UROLOGY 4. Urgency of urination - ICD9: 788.63, ICD10: R39.15 - CONSULT TO UROLOGY Diego Huffman MD documented in this encounter [facility] 09-07-2023 History of Present illness Narrative Patient presents with: 6 Month Exam HPI: Patient presents today for office visit for follow up;. HTN: Patient is compliant with meds Yes Monitors bp at home: No. Denies side effects: Yes. Chest pain: No. Dyspnea: No. Edema: No. Palpitations: No. Syncope: No. Headache: No. Dizziness: not new. Has seen urology with his bph. Due to see cardiology again. Has a sore by his mouth for a week. No trauma. No fever or chills. . MEDICATIONS: Current Outpatient Medications Medication Sig amLODIPine (NORVASC) 2.5 mg tablet Take 1 tablet by mouth once daily. ascorbic acid (VITAMIN C) 500 mg tablet Take 2 tablets by mouth once daily. aspirin, enteric coated (ASPIRIN, ENTERIC COATED) 81 mg EC tablet Take 81 mg by mouth once daily. Ipratropium [place] (ATROVENT) 21 mcg (0.03 %) nasal spray Use 2 Sprays in the nose twice daily. loratadine (CLARITIN) 10 mg tablet Take 1 tablet by mouth once daily. mirabegron (MYRBETRIQ) 50 mg Tb24 Take 1 tablet by mouth once daily. MULTI-VITAMIN ORAL Take by mouth. nutritional supplement/fiber (JUICE PLUS FIBRE ORAL) Take by mouth. omeprazole (PRILOSEC) 40 mg capsule Take 1 capsule by mouth once daily. (Patient not taking: Reported on 09/07/2023) No current facility-administered medications for this visit. 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, 2012 PND (post-nasal drip) S/P MVR (mitral valve repair) Vasomotor rhinitis PAST SURGICAL HISTORY Procedure Laterality Date COLONOSCOPY FLX DX W/COLLJ SPEC WHEN PFRMD 05/06/11 EGD TRANSORAL BIOPSY SINGLE/MULTIPLE 05/06/11 ESOPHAGOGASTRODUODENOSCOPY TRANSORAL DIAGNOSTIC 11/28/2009 EGD ESOPHAGOGASTRODUODENOSCOPY TRANSORAL DIAGNOSTIC 02/13/2020 EGD PAST SURGICAL HISTORY OF 2007 bilateral TKA PAST SURGICAL HISTORY OF Right 2002 inguinal hernia PAST SURGICAL HISTORY OF 10/2013 heart valve repair [facility] MAIN RPR 1ST INGUN HRNA AGE 5 YRS/> REDUCIBLE 08/25/2020 Hernia repair, inguinal XCAPSL CTRC RMVL INSJ IO LENS PROSTH W/O ECP Right 06/04/2015 Cataract Extraction with PC IOL XCAPSL CTRC RMVL INSJ IO LENS PROSTH W/O ECP 07/02/2015 Cataract Extraction with PC IOL OS FAMILY HISTORY Problem Relation Age of Onset Alzheimer's Disease Father other (Other) Daughter brain tumor Allergies Daughter None Son No Ocular Disease No Family History Social History Tobacco Use Smoking status: Never Smokeless tobacco: Never Vaping Use Vaping Use: Never used Substance Use Topics Alcohol use: No Drug use: No Reviewed current medications, allergies, past medical history, surgical history, family history and social history today. REVIEW OF SYSTEMS All other reviewed and negative other than HPI. HEALTH MAINTENANCE: Reviewed health maintenance issues today and recommended the following in detail. Advance Directive Discussion- unsure if has. Depression Assessment due on 11/28/2022 Influenza Vaccine(1) due on 07/29/2023 Covid-19 Vaccine( season) due on 07/29/2023 VITALS: BP 138/82 Pulse 60 Wt 90.7 kg (200 lb) SpO2 97% BMI 26.39 kg/m Last 4 Encounter Wt Readings: Date: Wt: 08/02/2023 90.4 kg (199 lb 3.2 oz) 07/08/2023 89.8 kg (198 lb) 03/02/2023 92.4 kg (203 lb 12.8 oz) 09/01/2022 88.2 kg (194 lb 6.4 oz) PHYSICAL EXAMINATION: General appearance: Well appearing, alert, in no acute distress, well-hydrated, well nourished. Skin: Skin color, texture, turgor normal, no suspicious rashes or lesions Has a mild redness at the corner of his mouth in skin folds. Will try antifungal cream. Red flags for re-assessment reviewed with patient in detail. Head: Normocephalic, no masses, lesions, tenderness or abnormalities Neck: Supple, no adenopathy; thyroid symmetric, normal size, no bruits Lungs: Lungs clear to auscultation. No wheezing, rhonchi, rales Heart: RRR without murmur, gallop, or rubs. No ectopy Abdomen: Normal abdominal exam, Abdomen soft, non-tender. Bowel sounds normal. No masses, organomegaly Extremities: No deformities, edema, skin discoloration, clubbing or cyanosis. Good capillary refill. ASSESSMENT/PLAN: 1. Essential hypertension, benign - ICD9: 401.1, ICD10: I10 (primary diagnosis) - Controlled - Continue current medications - Recommend home blood pressure monitoring, to bring results to next visit - Encouraged sodium restriction, DASH or Mediterranean diet - Recommend regular aerobic exercise - CBC + DIFF - COMP METABOLIC PANEL - LIPID PANEL BASIC 2. Encounter for immunization - ICD9: V03.89, ICD10: Z23 - INFLUENZA VACCINE, PRSV FREE, AGE 65+ YR, HIGH DOSE, QUADRIVALENT (FLUZONE HIGH-DOSE) - [employer] COVID-19 VACCINE (2022- SEAS[place]) AGE 12+ YR 3. 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 - CONSULT TO CARDIOLOGY 4. Benign prostatic hyperplasia with nocturia - ICD9: 600.01, 788.43, ICD10: N40.1, R35.1 - stable. Diego Huffman RTO in six months and prn. documented in this encounter [facility] 08-02-2023 Instructions Paul Chatterjee PA-C - 08/02/2023 10:49 AM EDT > 3 mo. Appt w/ B. JOSHUA Chatterjee, EUGENE FIGUEROA for new Rx Follow-up documented in this encounter [facility] 08-02-2023 History of Present illness Narrative Images from the original note were not included. COUNT INCLUDES THE [facility] NEW CONSULT PATIENT CLINIC NOTE SERVICE DATE: 08/02/2023 SERVICE TIME: 9:50 AM NAME: Maximo Nixon Consultation requested by Diego Huffman MD for an opinion regarding Urinary Frequency My final recommendations communicated back to the requesting physician by way of our shared Medical record. CHIEF COMPLAINT: Urinary Frequency HISTORY OF PRESENT ILLNESS: Maximo Nixon is a 82 year old male presenting for New Patient Consult for Urinary Frequency The patient reports increased Frequency and Nocturia, previous [facility] PVP with Jose A Segovia consult 2016 and recommended try OAB medication, discussed trial of Myrbetriq And increase water intake for 3 months if still having urgency recommend new UDS and Cystoscopy and possible Botox Injection if indicated as berore. Urodynamics radha Segovia - 2016 UDS done today demonstrate adeq bladder capacity w worsening compliance starting around 250 and terminal DO. Empties to completion after removal of cath. Last Ov wit Dr. Segovia 2016 Urinary urgency with nocturia- UDS done today demonstrate adeq bladder capacity w worsening compliance starting around 250 and terminal DO. Empties to completion after removal of cath. Recommend Ditropan (he never started) with boost QHS. He will call and let us know- if his sx haven't improved LUTS: DYSURIA: no URGENCY: Yes FREQUENCY:9 per day NOCTURIA: 3 per night STRAINING TO VOID: No EMPTIES COMPLETELY: Yes Other symptoms: LABS: No results found for: TESTOST No results found for: TESTFREE PSA (ng/mL) Date Value 12/10/2013 1.04 12/21/2012 1.17 Hematocrit (%) Date Value 03/02/2023 48.3 03/02/2022 46.8 03/02/2022 49.5 09/02/2021 46.6 10/06/2015 47.4 02/13/2015 47.7 PSA (ng/mL) Date Value 12/10/2013 1.04 12/21/2012 1.17 Creatinine Date Value Ref Range Status 03/02/2023 1.01 0.73 - 1.22 mg/dL Final 03/02/2022 1.01 0.73 - 1.22 mg/dL Final 03/02/2022 1.04 0.73 - 1.22 mg/dL Final 09/02/2021 1.18 0.73 - 1.22 mg/dL Final MEDICATIONS: amLODIPine (NORVASC) 2.5 mg tablet Take 1 tablet by mouth once daily. nutritional supplement/fiber (JUICE PLUS FIBRE ORAL) Take by mouth. omeprazole (PRILOSEC) 40 mg capsule Take 1 capsule by mouth once daily. MULTI-VITAMIN ORAL Take by mouth. aspirin, enteric coated (ASPIRIN, ENTERIC COATED) 81 mg EC tablet Take 81 mg by mouth once daily. ascorbic acid (VITAMIN C) 500 mg tablet Take 2 tablets by mouth once daily. Ipratropium [place] (ATROVENT) 21 mcg (0.03 %) nasal spray Use 2 Sprays in the nose twice daily. loratadine (CLARITIN) 10 mg tablet Take 1 tablet by mouth once daily. 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, 2012 PND (post-nasal drip) S/P MVR (mitral valve repair) Vasomotor rhinitis PAST SURGICAL HISTORY: PAST SURGICAL HISTORY Procedure Laterality Date COLONOSCOPY FLX DX W/COLLJ SPEC WHEN PFRMD 05/06/11 EGD TRANSORAL BIOPSY SINGLE/MULTIPLE 05/06/11 ESOPHAGOGASTRODUODENOSCOPY TRANSORAL DIAGNOSTIC 11/28/2009 EGD ESOPHAGOGASTRODUODENOSCOPY TRANSORAL DIAGNOSTIC 02/13/2020 EGD PAST SURGICAL HISTORY OF 2007 bilateral TKA PAST SURGICAL HISTORY OF Right 2003 inguinal hernia PAST SURGICAL HISTORY OF 10/2013 heart valve repair [facility] MAIN RPR 1ST INGUN HRNA AGE 5 YRS/> REDUCIBLE 08/25/2020 Hernia repair, inguinal XCAPSL CTRC RMVL INSJ IO LENS PROSTH W/O ECP Right 06/04/2015 Cataract Extraction with PC IOL XCAPSL CTRC RMVL INSJ IO LENS PROSTH W/O ECP 07/02/2015 Cataract Extraction with PC IOL OS FAMILY HISTORY: FAMILY HISTORY Problem Relation Age of Onset Alzheimer's Disease Father other (Other) Daughter brain tumor Allergies Daughter None Son No Ocular Disease No Family History Urinary Frequency REVIEW OF SYSTEMS: GENERAL: No fever, chills, weight loss, or fatigue. ENMT: Negative CARDIOVASCULAR:NO CHEST PAIN, PALPITATIONS, ANKLE EDEMA RESPIRATORY: No chronic cough, wheezing, dyspnea, hemoptysis. GENITOURINARY: SEE HPI MUSCULOSKELETAL:NO CHRONIC BACK PAIN, ARTHRITIS, CHRONIC NECK PAIN SKIN: NO VARICOSE VEINS, RASH, ABNORMAL ITCHING HEME/LYMPH/IMMUNE:Negative for prolonged bleeding, bruising easily or swollen nodes NEUROLOGICAL: NO HEADACHES, NUMBNESS, SEIZURES, STROKE DIABETES: no All other systems reviewed and are negative PHYSICAL EXAMINATION: Blood pressure 140/82, pulse (!) 58, temperature 36.2 C (97.2 F), temperature source Temporal, resp. rate 14, height 185.4 cm (6' 1), weight 90.4 kg (199 lb 3.2 oz), SpO2 93 %. GENERAL: WNL nutrition, no deformities, healthy appearing NEURO: Awake, alert and oriented x 3 and Normal gait PSYCH: No signs of depression, anxiety, or agitation ENMT (Ear, Nose, Mouth, Throat): No masses, adenopathy, icterus. Thyroid nonpalpable RESP: NL effort, no retractions or purse-lip breathing. CV: No extremity swelling, varices, edema, pallor, erythema GASTROINTESTINAL: Soft, nontender, nondistended, no masses. HERNIAS: None SKIN: No rash, lesions No palpable lymphadenopathy MUSCULOSKELETAL: Extremities normal. No deformities, edema, clubbing or skin discoloration. PROBLEM LIST REVIEW: Yes LABS: Results for orders placed or performed in visit on 07/08/23 UA DIP, URINE (POC) Result Value Ref Range GLUCOSE UA (POCT) Negative Negative mg/dL BILIRUBIN UA (POCT) Negative Negative KETONE UA (POCT) Negative Negative mg/dL SPECIFIC GRAVITY UA (POCT) >=1.030 1.005 - 1.030 HEMOGLOBIN/BLOOD UA (POCT) Negative Negative PH UA (POCT) 5.5 4.5 - 8.0 PROTEIN UA (POCT) Negative Negative mg/dL UROBILINOGEN UA (POCT) 0.2 Normal E.U./dL NITRITE UA (POCT) Negative Negative LEUKOCYTES UA (POCT) Negative Negative COLOR UA (POCT) Dark yellow CLARITY UA (POCT) Clear PROCEDURES: PVR: 0 ml IMAGING: IMPRESSION/PLAN: 82 year old male with 1. Benign prostatic hyperplasia with nocturia - ICD9: 600.01, 788.43, ICD10: N40.1, R35.1 (primary diagnosis) 2. Urgency of urination - ICD9: 788.63, ICD10: R39.15 3. Nocturia - ICD9: 788.43, ICD10: R35.1 > Increase water intake to 64 oz > Trial of Myrbetriq 50 mg x 3 months > 3 mo. Appt w/ B. JOSHUA Chatterjee MT, PA-C for new Rx Follow-up I spent a total of 40 minutes on the date of the service which included preparing to see the patient, face to face patient care, completing clinical documentation, obtaining and/or reviewing separately obtained history, performing a medically appropriate examination, counseling and educating the patient/family/caregiver, ordering medications, tests, or procedures, and care coordination. JOSHUA Potts MT, PA-C Verified name and date of . CC Post Void Residual HPI: Maximo Nixon is a 82 year old male. The patient is here now for an appointment with JOSHUA Potts MT, PA-COV. Procedure: Explained procedure to patient and verbalizes understanding. Performed a PVR. Patient urinated and instructed to empty bladder as much as possible just prior to having PVR done using bladder ultrasound scanner. Results of scan: 0 mL The patient tolerated the procedure well. Plan: Appointment with Paul. documented in this encounter [facility] 07-08-2023 History of Present illness Narrative Patient presents with: Urinary Frequency HPI: Patient presents today for office visit for follow up. Symptoms has been there for some time. Has urinary frequency. Has some urgency. Several bouts of nocturia. No hematuria. No dysuria. Remote history of kidney stones. No back pain. Stream has slowed. No caffeine use. Used to see urology for bph. Had a Turp remotely as well. Has been on mutliple meds. No nausea or vomiting. Has not followed up in some time with them. Bp is ok. No chest pain or shortness of breath. Had labs in February MEDICATIONS: Current Outpatient Medications Medication Sig nutritional supplement/fiber (JUICE PLUS FIBRE ORAL) Take by mouth. Ipratropium [place] (ATROVENT) 21 mcg (0.03 %) nasal spray Use 2 Sprays in the nose twice daily. omeprazole (PRILOSEC) 40 mg capsule Take 1 capsule by mouth once daily. loratadine (CLARITIN) 10 mg tablet Take 1 tablet by mouth once daily. MULTI-VITAMIN ORAL Take by mouth. aspirin, enteric coated (ASPIRIN, ENTERIC COATED) 81 mg EC tablet Take 81 mg by mouth once daily. ascorbic acid (VITAMIN C) 500 mg tablet Take 2 tablets by mouth once daily. amLODIPine (NORVASC) 2.5 mg tablet Take 1 tablet by mouth once daily. No current facility-administered medications for this visit. ALLERGIES: ALLERGIES Allergen Reactions Lisinopril Cough PAST MEDICAL HISTORY Diagnosis Date Acute gastritis without mention of hemorrhage Arrhythmia Esophagitis, unspecified Essential hypertension, benign 05/25/2012 GERD (gastroesophageal reflux disease) Paroxysmal A-fib (HCC) transitory 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, 2012 PAST SURGICAL HISTORY Procedure Laterality Date COLONOSCOPY FLX DX W/COLLJ SPEC WHEN PFRMD 05/06/11 EGD TRANSORAL BIOPSY SINGLE/MULTIPLE 05/06/11 ESOPHAGOGASTRODUODENOSCOPY TRANSORAL DIAGNOSTIC 11/28/2009 EGD ESOPHAGOGASTRODUODENOSCOPY TRANSORAL DIAGNOSTIC 02/13/2020 EGD PAST SURGICAL HISTORY OF 2007 bilateral TKA PAST SURGICAL HISTORY OF Right 2002 inguinal hernia PAST SURGICAL HISTORY OF 10/2013 heart valve repair [facility] MAIN RPR 1ST INGUN HRNA AGE 5 YRS/> REDUCIBLE 08/25/2020 Hernia repair, inguinal XCAPSL CTRC RMVL INSJ IO LENS PROSTH W/O ECP Right 06/04/2015 Cataract Extraction with PC IOL XCAPSL CTRC RMVL INSJ IO LENS PROSTH W/O ECP 07/02/2015 Cataract Extraction with PC IOL OS FAMILY HISTORY Problem Relation Age of Onset Alzheimer's Disease Father other (Other) Daughter brain tumor Allergies Daughter None Son No Ocular Disease No Family History Social History Tobacco Use Smoking status: Never Smokeless tobacco: Never Vaping Use Vaping Use: Never used Substance Use Topics Alcohol use: No Drug use: No Reviewed current medications, allergies, past medical history, surgical history, family history and social history today. REVIEW OF SYSTEMS All other reviewed and negative other than HPI. VITALS: BP 120/68 Pulse 68 Wt 89.8 kg (198 lb) SpO2 98% BMI 26.85 kg/m Last 4 Encounter Wt Readings: Date: Wt: 07/08/2023 89.8 kg (198 lb) 03/02/2023 92.4 kg (203 lb 12.8 oz) 09/01/2022 88.2 kg (194 lb 6.4 oz) 07/12/2022 86.6 kg (191 lb) PHYSICAL EXAMINATION: General appearance: Well appearing, alert, in no acute distress, well-hydrated, well nourished. Skin: Skin color, texture, turgor normal, no suspicious rashes or lesions Head: Normocephalic, no masses, lesions, tenderness or abnormalities Lungs: Lungs clear to auscultation. No wheezing, rhonchi, rales Heart: RRR without murmur, gallop, or rubs. No ectopy Abdomen: Normal abdominal exam, Abdomen soft, non-tender. Bowel sounds normal. No masses, organomegaly ASSESSMENT/PLAN: 1. Urgency of urination - ICD9: 788.63, ICD10: R39.15 (primary diagnosis) - is more of a recurrence of his chronic issues. Has seen Dr. Naranjo, had turp and was on multi labs in the past. See urology. - UA DIP, URINE (POC) 2. Nocturia - ICD9: 788.43, ICD10: R35.1 - UA DIP, URINE (POC) 3. Benign prostatic hyperplasia with nocturia - ICD9: 600.01, 788.43, ICD10: N40.1, R35.1 - UA DIP, URINE (POC) Diego Huffman MD documented in this encounter [facility] 04-06-2023 History of Present illness Narrative This consult is seen at the kind request of Dr. Diego Huffman of family medicine, and my final recommendations will be communicated to the requesting health care provider by way of shared electronic medical record. This note is formatted with the impression and plan first and the history and physical to follow. 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 RECOMMENDATION/PLAN For his rhinorrhea, I recommend a trial of Atrovent nasal spray twice daily. For his excessive mucus, I recommend a trial of Prilosec 40 mg once a day. I informed the patient that if Prilosec fail to resolve his issue, this is likely a chronic problem that will he will have to live with. For his tinnitus, I recommend obtaining an audiogram. I will see him back on as-needed basis. Chief Complaint Excessive mucus, ringing in the ears, runny nose. History of Present Illness Maximo Nixon is a 82 year old male presents for evaluation of excessive mucus in the throat, ringing in the ears, and runny nose. Patient stated that her symptoms has been present for many years. He gets a runny nose whenever he eats. When he is not eating, he denies any rhinorrhea. He also complains excessive mucus in his throat for that he has coughed up thick mucus all the time. He denies any trouble swallowing or pain with swallowing. He denies any heartburn. He does not use any reflux medication. Patient also complaining of ringing in both ears for many years. He denies any ear pain or drainage. PAST MEDICAL HISTORY Diagnosis Date Acute gastritis without mention of hemorrhage Arrhythmia Esophagitis, unspecified Essential hypertension, benign 05/25/2012 GERD (gastroesophageal reflux disease) Paroxysmal A-fib (HCC) transitory 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, 2012 PAST SURGICAL HISTORY Procedure Laterality Date COLONOSCOPY FLX DX W/COLLJ SPEC WHEN PFRMD 05/06/11 EGD TRANSORAL BIOPSY SINGLE/MULTIPLE 05/06/11 ESOPHAGOGASTRODUODENOSCOPY TRANSORAL DIAGNOSTIC 11/28/2009 EGD ESOPHAGOGASTRODUODENOSCOPY TRANSORAL DIAGNOSTIC 02/13/2020 EGD PAST SURGICAL HISTORY OF 2006 bilateral TKA PAST SURGICAL HISTORY OF Right 2003 inguinal hernia PAST SURGICAL HISTORY OF 10/2013 heart valve repair [facility] MAIN RPR 1ST INGUN HRNA AGE 7 YRS/> REDUCIBLE 08/25/2020 Hernia repair, inguinal XCAPSL CTRC RMVL INSJ IO LENS PROSTH W/O ECP Right 06/04/2015 Cataract Extraction with PC IOL XCAPSL CTRC RMVL INSJ IO LENS PROSTH W/O ECP 07/02/2015 Cataract Extraction with PC IOL OS FAMILY HISTORY Problem Relation Age of Onset Alzheimer's Disease Father other (Other) Daughter brain tumor Allergies Daughter None Son No Ocular Disease No Family History CURRENT OUTPATIENT MEDICATIONS Current Outpatient Medications on File Prior to Visit Medication Sig nutritional supplement/fiber (JUICE PLUS FIBRE ORAL) Take by mouth. amLODIPine (NORVASC) 2.5 mg tablet Take 1 tablet by mouth once daily. MULTI-VITAMIN ORAL Take by mouth. aspirin, enteric coated (ASPIRIN, ENTERIC COATED) 81 mg EC tablet Take 81 mg by mouth once daily. ascorbic acid (VITAMIN C) 500 mg tablet Take 2 tablets by mouth once daily. fluticasone (FLONASE) 50 mcg/actuation nasal spray Use 2 Sprays in each nostril once daily. Rinse mouth after use. (Patient not taking: Reported on 04/06/2023) loratadine (CLARITIN) 10 mg tablet Take 1 tablet by mouth once daily. (Patient not taking: Reported on 04/06/2023) Current Facility-Administered Medications on File Prior to Visit Medication perflutren lipid microspheres 1.3 mL in NaCl (PF) 0.9% 10 mL injection (DEFINITY) sodium chloride 0.9 % (flush) 10 mL (BD POSIFLUSH) ALLERGIES ALLERGIES Allergen Reactions Lisinopril Cough The remainder of the patient's history and review of systems is on the outpatient questionaire which was reviewed by me and placed in the outpatient chart. PHYSICAL EXAMINATION Appearance: General examination of the patient's external face, head and neck reveals no abnormalities. The patient is not retrognathic The patient's voice is strong and clear and they communicate easily. Ears: Bilateral EAC with cerumen impaction. After removal of cerumen, exam of the ears revealed normal appearing external auditory canals, tympanic membranes, and middle ears. No signs of infection or fluid were seen. Nose: External nasal exam was normal. Throat: There were no lesions to visualization or palpation of the lips, cheeks, gums, floor of mouth, tongue, hard and soft palate, tonsillar pillars or posterior pharyngeal wall. Neck: Palpation of the neck revealed no adenopathy, salivary gland masses or asymmetry, or thyroid masses or enlargement. Procedure Flexible laryngoscopy was performed because of the following indication: hyperactive gag and excessive mucus in the throat: After spraying the nose with 4% xylocaine and 0.5% oxymetazoline, the flexible scope was placed in a transnasal fashion. Septum is deviated to the left side. Bilateral middle meatus is clear without any pus or polyps. The nasopharynx, oropharynx, hypopharynx including the pyriform sinuses were normal. The base of tongue showed no gross lesions. The larynx itself showed no lesions. The vocal cords moved well bilaterally. Smith Short MD Medical Decision Making: Problems: Moderate: 2+ stable chronic illnesses Risk: Moderate: Drug management Medical Decision Making Level: 4 - Moderate documented in this encounter [facility] 03-03-2023 Miscellaneous Notes TC to patient who verbalized understanding and has no questions at this time. Patient will call back if he decides he wants physical therapy. ESTEFANI Richardson Xray shows knee is ok. No changes in his prosthesis. If continues to have pain, can consider physical therapy or return to ortho documented in this encounter [facility] 03-02-2023 History of Present illness Narrative Radiology Service Progress Note PATIENT NAME: Maximo Nixon DATE OF SERVICE: March 02, 2023 TIME: 10:20 AM PATIENT IDENTITY VERIFICATION COMPLETED USING TWO (2) IDENTIFIERS: Name and Date of confirmed by patient verbally. FALL SCREENING: Has the patient had 2 falls in the last year or 1 fall with injury or currently using an Ambulatory Assistive Device (Walker, Cane, Wheelchair, Crutches, etc.)? No PATIENT GENDER DATA: Male PATIENT RELEVANT IMPLANT DATA REVIEWED: Not Applicable RADIOLOGY DEPARTMENT: General X-ray: Exam(s) Completed: Lower Extremity X-Ray(s): Knee, AP / Lat / Tunne / Merchant Right and Wt. Bearing PERIPHERAL IV DATA: Not applicable SIGNED BY: RT Carloz(R) March 02, 2023 10:20 AM documented in this encounter [facility] 03-02-2023 History of Present illness Narrative Patient presents with: 6 Month Exam HPI: Patient presents today for office visit for follow up. Complaints of right knee pain. Had replacement years ago. Slipped on ice a few months ago and now it's giving him problems. Walking fine. Requesting x-ray. Does not give out. No swelling. No redness or warmth. HTN: Does not monitor BP Takes medication daily. Does not miss doses Intermittent sharp chest pains No shortness of breath Denies headaches Gets occasionally lightheaded. Happens rarely. Has discussed with cardiology in the past. No neuro complaints. Red flags for re-assessment reviewed with patient in detail. No edema No palpitations No syncope Continues to see cardiology. Has increased mucous in his throat. No heartburn. No dysphagia. MEDICATIONS: Current Outpatient Medications Medication Sig amLODIPine (NORVASC) 2.5 mg tablet Take 1 tablet by mouth once daily. loratadine (CLARITIN) 10 mg tablet Take 1 tablet by mouth once daily. MULTI-VITAMIN ORAL Take by mouth. aspirin, enteric coated (ASPIRIN, ENTERIC COATED) 81 mg EC tablet Take 81 mg by mouth once daily. ascorbic acid (VITAMIN C) 500 mg tablet Take 2 tablets by mouth once daily. Current Facility-Administered Medications Medication Dose Route Frequency perflutren lipid microspheres 1.3 mL in NaCl (PF) 0.9% 10 mL injection (DEFINITY) INTRAVENOUS DIRECTED PRN sodium chloride 0.9 % (flush) 10 mL (BD POSIFLUSH) 10 mL INTRAVENOUS DIRECTED PRN perflutren lipid microspheres 1.3 mL in NaCl (PF) 0.9% 10 mL injection (DEFINITY) INTRAVENOUS DIRECTED PRN sodium chloride 0.9 % (flush) 10 mL (BD POSIFLUSH) 10 mL INTRAVENOUS DIRECTED PRN ALLERGIES: ALLERGIES Allergen Reactions Lisinopril Cough PAST MEDICAL HISTORY Diagnosis Date Acute gastritis without mention of hemorrhage Arrhythmia Esophagitis, unspecified Essential hypertension, benign 05/25/2012 GERD (gastroesophageal reflux disease) Paroxysmal A-fib (HCC) transitory 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, 2012 PAST SURGICAL HISTORY Procedure Laterality Date COLONOSCOPY FLX DX W/COLLJ SPEC WHEN PFRMD 05/06/11 EGD TRANSORAL BIOPSY SINGLE/MULTIPLE 05/06/11 ESOPHAGOGASTRODUODENOSCOPY TRANSORAL DIAGNOSTIC 11/28/2009 EGD ESOPHAGOGASTRODUODENOSCOPY TRANSORAL DIAGNOSTIC 02/13/2020 EGD PAST SURGICAL HISTORY OF 2007 bilateral TKA PAST SURGICAL HISTORY OF Right 2002 inguinal hernia PAST SURGICAL HISTORY OF 10/2013 heart valve repair [facility] MAIN RPR 1ST INGUN HRNA AGE 5 YRS/> REDUCIBLE 08/25/2020 Hernia repair, inguinal XCAPSL CTRC RMVL INSJ IO LENS PROSTH W/O ECP Right 06/04/2015 Cataract Extraction with PC IOL XCAPSL CTRC RMVL INSJ IO LENS PROSTH W/O ECP 07/02/2015 Cataract Extraction with PC IOL OS FAMILY HISTORY Problem Relation Age of Onset Alzheimer's Disease Father other (Other) Daughter brain tumor Allergies Daughter None Son No Ocular Disease No Family History Social History Tobacco Use Smoking status: Never Smokeless tobacco: Never Substance Use Topics Alcohol use: No Drug use: No Reviewed current medications, allergies, past medical history, surgical history, family history and social history today. REVIEW OF SYSTEMS All other reviewed and negative other than HPI. HEALTH MAINTENANCE: Reviewed health maintenance issues today and recommended the following in detail. BP CONTROLLED (<130/80) Never done ADVANCE DIRECTIVE DISCUSSION due on 11/28/2022 DEPRESSION ASSESSMENT due on 11/28/2022 VITALS: BP 120/78 Pulse 60 Ht 182.9 cm (6') Wt 92.4 kg (203 lb 12.8 oz) SpO2 96% BMI 27.64 kg/m Last 4 Encounter Wt Readings: Date: Wt: 09/01/2022 88.2 kg (194 lb 6.4 oz) 07/12/2022 86.6 kg (191 lb) 07/07/2022 87.1 kg (192 lb) 05/11/2022 86.6 kg (191 lb) PHYSICAL EXAMINATION: General appearance: Well appearing, alert, in no acute distress, well-hydrated, well nourished. Skin: Skin color, texture, turgor normal, no suspicious rashes or lesions Head: Normocephalic, no masses, lesions, tenderness or abnormalities Lungs: Lungs clear to auscultation. No wheezing, rhonchi, rales Heart: RRR without murmur, gallop, or rubs. No ectopy Abdomen: Normal abdominal exam, Abdomen soft, non-tender. Bowel sounds normal. No masses, organomegaly Extremities: No deformities, edema, skin discoloration, clubbing or cyanosis. Good capillary refill. Musculoskeletal: No joint swelling, deformity, or tenderness ASSESSMENT/PLAN: 1. Essential hypertension, benign - ICD9: 401.1, ICD10: I10 (primary diagnosis) - good control - Continue current medication(s) - Goal of BP <130/80 - CBC + DIFF - COMP METABOLIC PANEL - LIPID PANEL, NONFASTING 2. PND (post-nasal drip) - ICD9: 784.91, ICD10: R09.82 - Discussed risks and benefits of new medication with the patient. Advised them to call if any side effects or questions. - CONSULT TO ENT - FLUTICASONE PROPIONATE 50 MCG/ACTUATION NASAL SPRAY,SUSPENSION 3. Acute pain of right knee - ICD9: 719.46, ICD10: M25.561 - will check xray - XR KNEE GENERAL 4V AP BOTH/PA BOTH/LAT/MERC RIGHT 4. 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 Gastroesophageal reflux disease, unspecified whether esophagitis present - ICD9: 530.81, ICD10: K21.9 - stable. 6. S/P MVR (mitral valve repair) - ICD9: V45.89, ICD10: Z98.890 - per cardiology. Diego Huffman MD documented in this encounter [facility] 01-03-2023 Instructions Sean Walton II, OD - 01/03/2023 1:02 PM EST Assessment and Plan H35.3131 Nonexudative age-related macular degeneration, bilateral, early dry stage (primary encounter diagnosis) Comment: Stable. Continue visits with Dr. Jha as instructed. Z96.1 Pseudophakia Comment: Well positioned PC Intraocular lenses both eyes. H26.492 After cataract not obscuring vision, left Comment: Monitor. H52.223 Regular astigmatism, bilateral H52.4 Presbyopia Comment: Update glasses power and replace scratched lenses. I have confirmed and edited as necessary the relevant ophthalmic history, ROS, and the neuro exam findings as obtained by others. I have seen and examined Maximo Nixon. I have discussed the case and the management of this patient's care with the Resident/Fellow, if applicable. I also have reviewed and agree with the assessment and plan as stated above and agree with all of its relevant components. Sean Walton II, OD documented in this encounter [facility] 01-03-2023 History of Present illness Narrative Assessment and Plan H35.3131 Nonexudative age-related macular degeneration, bilateral, early dry stage (primary encounter diagnosis) Comment: Stable. Continue visits with Dr. Jha as instructed. Z96.1 Pseudophakia Comment: Well positioned PC Intraocular lenses both eyes. H26.492 After cataract not obscuring vision, left Comment: Monitor. H52.223 Regular astigmatism, bilateral H52.4 Presbyopia Comment: Update glasses power and replace scratched lenses. I have confirmed and edited as necessary the relevant ophthalmic history, ROS, and the neuro exam findings as obtained by others. I have seen and examined Maximo Nixon. I have discussed the case and the management of this patient's care with the Resident/Fellow, if applicable. I also have reviewed and agree with the assessment and plan as stated above and agree with all of its relevant components. Sean Walton II, OD documented in this encounter [facility] 09-09-2022 History of Present illness Narrative Assessment and Plan 1. Nonexudative age-related macular degeneration, bilateral, early dry stage - stable 2. After cataract not obscuring vision, left - continue to monitor for any changes 3. Pseudophakia - intraocular lens in good position, both eyes Plan: - Monitor both eyes with [employer] Grid - Return to clinic in 1 year for dilated fundus exam, sooner if needed I have confirmed and edited as necessary the relevant ophthalmic history, ROS, and the neuro exam findings as obtained by others. I have seen and examined Maximo Nixon. I have discussed the case and the management of this patient's care with the Resident/Fellow, if applicable. I also have reviewed and agree with the assessment and plan as stated above and agree with all of its relevant components. Hakeem Jha MD September 09, 2022 12:06 PM documented in this encounter [facility] 09-01-2022 Instructions Diego Huffman MD - 09/01/2022 3:10 PM EDT Can use flonase over the counter. documented in this encounter [facility] 09-01-2022 History of Present illness Narrative Patient presents with: 6 Month Exam HPI: Patient presents today for office visit for 6 month follow up. Overall feeling good. No complaints. HTN: Patient is compliant with meds Yes Monitors bp at home: No. Denies side effects: Yes. Chest pain: No. Dyspnea: No. Edema: No. Palpitations: No. Syncope: No. Headache: No. Dizziness: No. Saw ortho for his knee. Has followed with Dr. Cordero. MEDICATIONS: Current Outpatient Medications Medication Sig amLODIPine (NORVASC) 2.5 mg tablet Take 1 tablet by mouth once daily. loratadine (CLARITIN) 10 mg tablet Take 1 tablet by mouth once daily. MULTI-VITAMIN ORAL Take by mouth. aspirin, enteric coated (ASPIRIN, ENTERIC COATED) 81 mg EC tablet Take 81 mg by mouth once daily. ascorbic acid (VITAMIN C) 500 mg tablet Take 2 tablets by mouth once daily. Current Facility-Administered Medications Medication Dose Route Frequency perflutren lipid microspheres 1.3 mL in NaCl (PF) 0.9% 10 mL injection (DEFINITY) INTRAVENOUS DIRECTED PRN sodium chloride 0.9 % (flush) 10 mL (BD POSIFLUSH) 10 mL INTRAVENOUS DIRECTED PRN perflutren lipid microspheres 1.3 mL in NaCl (PF) 0.9% 10 mL injection (DEFINITY) INTRAVENOUS DIRECTED PRN sodium chloride 0.9 % (flush) 10 mL (BD POSIFLUSH) 10 mL INTRAVENOUS DIRECTED PRN ALLERGIES: ALLERGIES Allergen Reactions Lisinopril Cough PAST MEDICAL HISTORY Diagnosis Date Acute gastritis without mention of hemorrhage Arrhythmia Esophagitis, unspecified Essential hypertension, benign 05/25/2012 GERD (gastroesophageal reflux disease) Paroxysmal A-fib (HCC) transitory 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, 2012 PAST SURGICAL HISTORY Procedure Laterality Date COLONOSCOPY FLX DX W/COLLJ SPEC WHEN PFRMD 05/06/11 EGD TRANSORAL BIOPSY SINGLE/MULTIPLE 05/06/11 ESOPHAGOGASTRODUODENOSCOPY TRANSORAL DIAGNOSTIC 11/28/2009 EGD ESOPHAGOGASTRODUODENOSCOPY TRANSORAL DIAGNOSTIC 02/13/2020 EGD PAST SURGICAL HISTORY OF 2007 bilateral TKA PAST SURGICAL HISTORY OF Right 2003 inguinal hernia PAST SURGICAL HISTORY OF 10/2013 heart valve repair [facility] MAIN RPR 1ST INGUN HRNA AGE 7 YRS/> REDUCIBLE 08/25/2020 Hernia repair, inguinal XCAPSL CTRC RMVL INSJ IO LENS PROSTH W/O ECP Right 06/04/2015 Cataract Extraction with PC IOL XCAPSL CTRC RMVL INSJ IO LENS PROSTH W/O ECP 07/02/2015 Cataract Extraction with PC IOL OS FAMILY HISTORY Problem Relation Age of Onset Alzheimer's Disease Father other (Other) Daughter brain tumor Allergies Daughter None Son No Ocular Disease No Family History Social History Tobacco Use Smoking status: Never Smokeless tobacco: Never Substance Use Topics Alcohol use: No Drug use: No Reviewed current medications, allergies, past medical history, surgical history, family history and social history today. REVIEW OF SYSTEMS No gi or gu issues. No memory changes. No falls. Has chronic tinnitus. Offered ent. Has runny nose and allergy symptoms. Discussed flonase. All other reviewed and negative other than HPI. HEALTH MAINTENANCE: Reviewed health maintenance issues today and recommended the following in detail. SHINGRIX VACCINE(1 of 2) Never done PNEUMOCOCCAL: 65+(2 - PCV) due on 07/24/2011 COVID-19 VACCINE(4 - Booster for Pfizer series) due on 11/11/2021 ADVANCE DIRECTIVE DISCUSSION- unsure if has. DEPRESSION ASSESSMENT Never done INFLUENZA(1) due on 07/29/2022 VITALS: BP 134/74 Pulse 70 Ht 182.9 cm (6') Wt 88.2 kg (194 lb 6.4 oz) SpO2 97% BMI 26.37 kg/m Last 4 Encounter Wt Readings: Date: Wt: 07/12/2022 86.6 kg (191 lb) 07/07/2022 87.1 kg (192 lb) 05/11/2022 86.6 kg (191 lb) 04/16/2022 88 kg (194 lb) PHYSICAL EXAMINATION: General appearance: Well appearing, alert, in no acute distress, well-hydrated, well nourished. Skin: Skin color, texture, turgor normal, no suspicious rashes or lesions Head: Normocephalic, no masses, lesions, tenderness or abnormalities Eyes: Anicteric sclera. Pupils are equally round and reactive to light. Extraocular movements are intact. Lungs: Lungs clear to auscultation. No wheezing, rhonchi, rales Heart: RRR without murmur, gallop, or rubs. No ectopy Abdomen: Normal abdominal exam, Abdomen soft, non-tender. Bowel sounds normal. No masses, organomegaly Extremities: No deformities, edema, skin discoloration, clubbing or cyanosis. Good capillary refill. Musculoskeletal: No joint swelling, deformity, or tenderness ASSESSMENT/PLAN: 1. Essential hypertension, benign - ICD9: 401.1, ICD10: I10 (primary diagnosis) - good control - Continue current medication(s) - Goal of BP <130/80 - CBC + DIFF - COMP METABOLIC PANEL - LIPID PANEL BASIC 2. Encounter for immunization - ICD9: V03.89, ICD10: Z23 - INFLUENZA SEASONAL QUADRIVALENT HIGH DOSE AGE 65+ - PNEUMOCOCCAL VACCINE (PREVNAR 20) 3. Postoperative atrial fibrillation (HCC) - ICD9: 997.1, 427.31, ICD10: I97.89, I48.91 - per cardiology. Doing well. 4. Gastroesophageal reflux disease, unspecified whether esophagitis present - ICD9: 530.81, ICD10: K21.9 - stable. Diego Huffman MD documented in this encounter [facility] 07-07-2022 History of Present illness Narrative Radiology Service Progress Note PATIENT NAME: Maximo Nixon DATE OF SERVICE: July 07, 2022 TIME: 8:14 AM PATIENT IDENTITY VERIFICATION COMPLETED USING TWO (2) IDENTIFIERS: Name and Date of confirmed by patient verbally. FALL SCREENING: Has the patient had 2 falls in the last year or 1 fall with injury or currently using an Ambulatory Assistive Device (Walker, Cane, Wheelchair, Crutches, etc.)? No PATIENT GENDER DATA: Male PATIENT RELEVANT IMPLANT DATA REVIEWED: Yes RADIOLOGY DEPARTMENT: General X-ray: Exam(s) Completed: Lower Extremity X-Ray(s): Knee, AP / Lat / Tunne / Merchant Right and Wt. Bearing Upper Extremity X-Ray(s): Shoulder, AP / TRUE AP / AXILLARY left PERIPHERAL IV DATA: Not applicable SIGNED BY: RT Dago(R) July 07, 2022 8:14 AM documented in this encounter [facility] 07-07-2022 Instructions Ana Resendez APRN.KALEB - 07/07/2022 8:06 AM EDT Get the xray of the right knee and left shoulder. documented in this encounter [facility] 07-07-2022 History of Present illness Narrative This is a 81 year old male who presents today with: Patient presents with: Acute Visit: right knee pain- 1 week ago HISTORY OF PRESENT ILLNESS: Maximo Nixon is a 81 year old male. Patient presents with: Acute Visit: right knee pain- 1 week ago Pt presents today with complaint of right knee pain. No popping/cracking in the knee. Refers that it gives out on him. Hurts in the medical aspect -- intermittently. Hx of knee replacement 20 years ago. No redness/swelling of the knee. No injuries. Doesn't take anything for the pain. Left shoulder pain. Refers when he stands with his arm hanging down, he gets a lot of pain in the posterior shoulder. ROM seems intact. Has been going on for 1 1/2 months. No n/t in the arm, except when he is driving, but not associated w/ the pain. He is right handed. No injuries. Hasn't taken anything for the shoulder pain. PAST MEDICAL HISTORY: PAST MEDICAL HISTORY Diagnosis Date Acute gastritis without mention of hemorrhage Arrhythmia Esophagitis, unspecified Essential hypertension, benign 05/25/2012 GERD (gastroesophageal reflux disease) Paroxysmal A-fib (HCC) transitory 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, 2012 PAST SURGICAL HISTORY Procedure Laterality Date COLONOSCOPY FLX DX W/COLLJ SPEC WHEN PFRMD 05/06/11 EGD TRANSORAL BIOPSY SINGLE/MULTIPLE 05/06/11 ESOPHAGOGASTRODUODENOSCOPY TRANSORAL DIAGNOSTIC 11/28/2009 EGD ESOPHAGOGASTRODUODENOSCOPY TRANSORAL DIAGNOSTIC 02/13/2020 EGD PAST SURGICAL HISTORY OF 2006 bilateral TKA PAST SURGICAL HISTORY OF Right 2003 inguinal hernia PAST SURGICAL HISTORY OF 10/2013 heart valve repair [facility] MAIN RPR 1ST INGUN HRNA AGE 5 YRS/> REDUCIBLE 08/25/2020 Hernia repair, inguinal XCAPSL CTRC RMVL INSJ IO LENS PROSTH W/O ECP Right 06/04/2015 Cataract Extraction with PC IOL XCAPSL CTRC RMVL INSJ IO LENS PROSTH W/O ECP 07/02/2015 Cataract Extraction with PC IOL OS ALLERGIES Lisinopril MEDICATIONS Current Outpatient Medications Medication Sig MULTI-VITAMIN ORAL Take by mouth. aspirin, enteric coated (ASPIRIN, ENTERIC COATED) 81 mg EC tablet Take 81 mg by mouth once daily. ascorbic acid (VITAMIN C) 500 mg tablet Take 2 tablets by mouth once daily. fluticasone (FLONASE) 50 mcg/actuation nasal spray Use 2 Sprays in each nostril once daily. Rinse mouth after use. (Patient not taking: Reported on 07/07/2022) naproxen (NAPROSYN) 500 mg tablet Take 1 tablet by mouth twice daily as needed (pain/inflammation, take with food.). (Patient not taking: Reported on 07/07/2022) amLODIPine (NORVASC) 2.5 mg tablet Take 1 tablet by mouth once daily. Current Facility-Administered Medications Medication Dose Route Frequency perflutren lipid microspheres 1.3 mL in NaCl (PF) 0.9% 10 mL injection (DEFINITY) INTRAVENOUS DIRECTED PRN sodium chloride 0.9 % (flush) 10 mL (BD POSIFLUSH) 10 mL INTRAVENOUS DIRECTED PRN perflutren lipid microspheres 1.3 mL in NaCl (PF) 0.9% 10 mL injection (DEFINITY) INTRAVENOUS DIRECTED PRN sodium chloride 0.9 % (flush) 10 mL (BD POSIFLUSH) 10 mL INTRAVENOUS DIRECTED PRN FAMILY HISTORY Problem Relation Age of Onset Alzheimer's Disease Father other (Other) Daughter brain tumor Allergies Daughter None Son No Ocular Disease No Family History Social History Tobacco Use Smoking status: Never Smokeless tobacco: Never Substance Use Topics Alcohol use: No Drug use: No EXAM: BP 140/97 Pulse (!) 58 Resp 16 Wt 87.1 kg (192 lb) SpO2 95% BMI 25.33 kg/m PHYSICAL EXAM: General Appearance: Well appearing, alert, in no acute distress, well-hydrated, well nourished.. Skin: Skin color, texture, turgor normal, no suspicious rashes or lesions. Head: Normocephalic, no masses, lesions, tenderness or abnormalities. Eyes: Anicteric sclera. Extraocular movements are intact. . Lungs: Lungs clear to auscultation. No wheezing, rhonchi, rales.. Heart: RRR without murmur, gallop, or rubs. No ectopy. Extremities: No deformities, edema, skin discoloration, clubbing or cyanosis. Good capillary refill. . Neurologic: Gait normal. Shoulder : Location: left posterior Redness: no Warmth: no Tenderness to palpation: mildly in the posterior aspect Swelling: no Range of motion: Full active ROM both shoulders abduction, adduction, flexion, extension, circumduction, internal and external rotation. Empty can test: tenderness int he posterior aspect against resistance. Knee: Lower extremities equal or nearly equal in bulk and tone. No redness or increased warmth. No axial deformity. No evidence of swelling or ballottable effusion in either knee. Full flexion to 130+ degrees, full extension, negative bounce test. No pain or laxity with varus or valgus stress. No pain with patellar pressure or abnormal tracking. Anterior drawer, Manisha, and Heather test all negative. ASSESSMENT/PLAN: 1. Acute pain of left shoulder - ICD9: 719.41, ICD10: M25.512 (primary diagnosis) Intermittent in nature. He has been going to the chiropractor. Discussed tylenol and topicals as needed. - XR SHOULDER GENERAL 3V OR MORE AP/TRUE AP/OTHER LEFT 2. Essential hypertension, benign - ICD9: 401.1, ICD10: I10 Refill: - AMLODIPINE 2.5 MG TABLET 3. Environmental and seasonal allergies - ICD9: 477.8, ICD10: J30.89 Med list updated -- uses Claritin 4. Acute pain of right knee - ICD9: 719.46, ICD10: M25.561 Will get imaging. Intermittent in nature. Again discussed tylenol and/or topicals prn. - XR KNEE GENERAL 4V AP BOTH/PA BOTH/LAT/MERC RIGHT Discussed treatment plan and patient voices understanding. Patient's questions answered appropriately. Medications and potential side effects were discussed and patient voices understanding. Return to the office as scheduled or as needed for worsening/no improvement. Ana Resendez APRN.CNP documented in this encounter [facility] 07-05-2022 Miscellaneous Notes Noted Ana Resendez APRN.CNP Patient calling with request for referral to ORTHO for right knee pain. States he is wondering if his knee replacement has worn out. Knee pain started yesterday. Denies injury/trauma. Denies redness, swelling, inability to bear weight. At times difficult to walk. Advised OV for evaluation. Scheduled 07/07 with Ana Resendez FOOD SERVICE COORDINATOR. Will go to Urgent Care if symptoms worsen. Delmis Farias RN documented in this encounter [facility] 05-25-2022 Miscellaneous Notes Demonstrates normal LV systolic function and a well-functioning mitral valve repair. -Dr. Cordero ____ Reviewed results with pt. documented in this encounter [facility] 04-19-2022 Miscellaneous Notes Patient given results and verbalized understanding of instructions given. Radha Garcia Ultrasound of the thyroid showed the right side was slightly larger than the left but no significant abnormalities. Follow up with ENT if symptoms persist. documented in this encounter [facility] 04-17-2022 Miscellaneous Notes Patient given results and verbalized understanding of instructions given. Radha Garcia ----- Message from Gracie Aj APRN.CNP sent at 04/17/2022 9:52 AM EDT ----- Please advise patient his thyroid test was normal. documented in this encounter [facility] 04-16-2022 Instructions Gracie Aj APRN.CNP - 04/16/2022 3:44 PM EDT ASSESSMENT/PLAN: 1. Cough - ICD9: 786.2, ICD10: R05.9 (primary diagnosis) - XR CHEST 2V FRONTAL/LAT Radiologist IMPRESSION: Stable exam without acute findings. Sand Hauler: MALLY Transcribe Date/Time: Apr 16 2022 3:37P Dictated by : GILBERTO WIN MD 2. Globus sensation - ICD9: 306.4, ICD10: R09.89 - XR NECK SOFT TISSUE 2V AP/LAT. Radiologist IMPRESSION: No soft tissue abnormality identified. Sand Hauler: PSCB Transcribe Date/Time: Apr 16 2022 3:38P Dictated by : STANLEY CURRY MD - TSH BLD - US THYROID/PARATHYROID - Continue to take Mucinex as prescribed. - Follow-up with your PCP in 3-5 days if symptoms have not improved or sooner if symptoms worsen - Discussed red flags and need for immediate medical evaluation if any occur. - Discussed supportive care treatment with fluids, rest and analgesia. - Discussed expected course of illness Gracie Aj APRN.CHILD CARE GROUP LEADER documented in this encounter [facility] 04-16-2022 History of Present illness Narrative Radiology Service Progress Note PATIENT NAME: Maximo Nixon DATE OF SERVICE: April 16, 2022 TIME: 3:21 PM PATIENT IDENTITY VERIFICATION COMPLETED USING TWO (2) IDENTIFIERS: Name and Date of confirmed by patient verbally. FALL SCREENING: Has the patient had 2 falls in the last year or 1 fall with injury or currently using an Ambulatory Assistive Device (Walker, Cane, Wheelchair, Crutches, etc.)? No PATIENT GENDER DATA: Male PATIENT RELEVANT IMPLANT DATA REVIEWED: Not Applicable RADIOLOGY DEPARTMENT: General X-ray: Exam(s) Completed: Chest X-Ray and soft tissue neck 2v PERIPHERAL IV DATA: Not applicable SIGNED BY: RT Carloz(R) April 16, 2022 3:21 PM documented in this encounter [facility] 04-16-2022 History of Present illness Narrative Subjective HPI Maximo Nixon is a 81 year old male who presents with feels like something stuck in my throat and a hoarse voice for the past week. He has been coughing up thick phlegm but can no longer cough it up and feels like it is stuck. He has taken mucinex and claritin but it has not helped. He denies any trouble swallowing water or food and denies choking. He denies sore throat. No fever. Review of Systems Constitutional: Negative for chills and fever. HENT: Negative for sore throat. See HPI Respiratory: Negative. Cardiovascular: Negative. Skin: Negative for itching and rash. BP 110/68 Pulse 60 Temp 36.4 C (97.6 F) Resp 16 Wt 88 kg (194 lb) SpO2 97% BMI 25.60 kg/m PAST MEDICAL HISTORY Diagnosis Date Acute gastritis without mention of hemorrhage Arrhythmia Esophagitis, unspecified Essential hypertension, benign 05/25/2012 GERD (gastroesophageal reflux disease) Paroxysmal A-fib (HCC) transitory 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, 2012 PAST SURGICAL HISTORY Procedure Laterality Date COLONOSCOPY FLX DX W/COLLJ SPEC WHEN PFRMD 05/06/11 EGD TRANSORAL BIOPSY SINGLE/MULTIPLE 05/06/11 ESOPHAGOGASTRODUODENOSCOPY TRANSORAL DIAGNOSTIC 11/28/2009 EGD ESOPHAGOGASTRODUODENOSCOPY TRANSORAL DIAGNOSTIC 02/13/2020 EGD PAST SURGICAL HISTORY OF 2007 bilateral TKA PAST SURGICAL HISTORY OF Right 2003 inguinal hernia PAST SURGICAL HISTORY OF 10/2013 heart valve repair [facility] MAIN RPR 1ST INGUN HRNA AGE 5 YRS/> REDUCIBLE 08/25/2020 Hernia repair, inguinal XCAPSL CTRC RMVL INSJ IO LENS PROSTH W/O ECP Right 06/04/2015 Cataract Extraction with PC IOL XCAPSL CTRC RMVL INSJ IO LENS PROSTH W/O ECP 07/02/2015 Cataract Extraction with PC IOL OS ALLERGIES Lisinopril MEDICATIONS fluticasone (FLONASE) 50 mcg/actuation nasal spray Use 2 Sprays in each nostril once daily. Rinse mouth after use. naproxen (NAPROSYN) 500 mg tablet Take 1 tablet by mouth twice daily as needed (pain/inflammation, take with food.). aspirin, enteric coated (ASPIRIN, ENTERIC COATED) 81 mg EC tablet Take 81 mg by mouth once daily. ascorbic acid (VITAMIN C) 500 mg tablet Take 2 tablets by mouth once daily. guaiFENesin (MUCINEX) 600 mg 12 hr tablet Take 2 tablets by mouth twice daily for 10 days. amLODIPine (NORVASC) 2.5 mg tablet Take 1 tablet by mouth once daily. MULTI-VITAMIN ORAL Take by mouth. FAMILY HISTORY Problem Relation Age of Onset Alzheimer's Disease Father other (Other) Daughter brain tumor Allergies Daughter None Son No Ocular Disease No Family History Social History Tobacco Use Smoking status: Never Smoker Smokeless tobacco: Never Used Substance Use Topics Alcohol use: No Drug use: No Objective Physical Exam Vitals and nursing note reviewed. Constitutional: Appearance: Normal appearance. Neck: Thyroid: Thyromegaly present. No thyroid mass or thyroid tenderness. Cardiovascular: Rate and Rhythm: Normal rate and regular rhythm. Heart sounds: Normal heart sounds. Pulmonary: Effort: Pulmonary effort is normal. No respiratory distress. Breath sounds: Normal breath sounds. No wheezing or rales. Lymphadenopathy: Cervical: No cervical adenopathy. Skin: General: Skin is warm and dry. Findings: No erythema or rash. Neurological: Mental Status: He is alert. ASSESSMENT/PLAN: 1. Cough - ICD9: 786.2, ICD10: R05.9 (primary diagnosis) - XR CHEST 2V FRONTAL/LAT Radiologist IMPRESSION: Stable exam without acute findings. Sand Hauler: MALLY Transcribe Date/Time: Apr 16 2022 3:37P Dictated by : GILBERTO WIN MD 2. Globus sensation - ICD9: 306.4, ICD10: R09.89 - XR NECK SOFT TISSUE 2V AP/LAT. Radiologist IMPRESSION: No soft tissue abnormality identified. Sand Hauler: PSCUzma Transcribe Date/Time: Apr 16 2022 3:38P Dictated by : STANLEY CURRY MD - TSH BLD - US THYROID/PARATHYROID - Continue to take Mucinex as prescribed. - Follow-up with your PCP in 3-5 days if symptoms have not improved or sooner if symptoms worsen - Discussed red flags and need for immediate medical evaluation if any occur. - Discussed supportive care treatment with fluids, rest and analgesia. - Discussed expected course of illness Gracie Aj APRN.CHILD CARE GROUP LEADER documented in this encounter [facility] 03-11-2022 Miscellaneous Notes Call to pt and notified of below instructions. No further questions or concerns. *NOTHING BY MOUTH 4 HOURS prior to this test. (you may have sips of water) *NO CAFFEINE FOR 24 HOURS PRIOR TO TESTING (ie. TEA even decaf, COFFEE- even decaf, CHOCOLATE, PEDRO- even decaf) *Do NOT take MEDICATIONS CONTAINING CAFFEINE/XANTHINE for 24 HOURS prior to testing: Theophylline, Trental, Excedrin, Anacin, Goody Powders, No Doz, Vivarin, Midol, Diurex, Fiorinal, Fioricet, Esgic (butalbital) *Do NOT take Calcium Channel Blockers 24 HOURS prior to test: Diltiazem (Cardizem), Verapamil *Do NOT take Beta blockers 24 HOURS prior to test UNLESS your doctor tells you otherwise: Bisoprolol (Zebeta, ZIAC), Metoprolol (Lopressor, Toprol, Lopressor HCT), Nadolol ( Corgard, Corizide), Nebivolol (Bystolic), Pindolol (Visken), Propranolol (Inderal, Inderide), Carvedilol (Coreg, Coreg CR), Labetalol (Trandate) Atenolol (Tenormin, Tenoretic) Acebutolol (Sectral). *Do NOT use the following medications 48 HOURS prior to this test: Viagra(Sildenafil citrate), Cialis(Tadalafil), Vardenafil (Levitra, Stanyx), Avanfil (Stendra). *Do not take any of these meds prior to test unless provider directs you otherwise; Nitroglycerine (ex:Deponit, Nitrostat) Isosorbide (ex:Isordil, Sorbitrate,Imdur,Ismo). *DO CONTINUE TO TAKE ALL YOUR OTHER MEDICATIONS YOU NORMALLY DO. *Guidelines for Diabetics: If you take insulin to control your blood sugar, ask you physician what amount you should take the day of the test. If you take pills to control blood sugar, on the day of the test, do NOT take them until AFTER the test. *FAILURE TO FOLLOW THESE INSTRUCTIONS WILL RESULT IN HAVING TO RESCHEDULE THE TEST. *Please wear comfortable clothes with a short-sleeved shirt and comfortable walking shoes. *If you use an inhaler, bring it along with you just in case *THIS TEST MAY TAKE UP TO 3 HOURS TO COMPLETE. Please check in on the first floor at Radiology: [address]; [place] [address] *This stress test will appear as 3 appointments on your schedule. You may get multiple reminder calls, but please arrive at the earliest scheduled appointment. * If you need to cancel or reschedule this test or have any questions regarding this test, please call [phone]. documented in this encounter [facility] 03-02-2022 History of Present illness Narrative Patient presents with: Follow Up: 6 month HPI: Patient presents today for office visit for follow up. bp is well controlled. No shortness of breath. Tuesday he had chest pain all day long. Was constant for six or eight hours. Has been fine since then. Nothing made it better or worse. No changes with exertion. No shortness of breath. No edema. No palpitations No dizziness or palpitations. Was not sore to palpation. No gerd. No change with position. Saw Dr. Cordero recently for bradycardia and post op a fib. They did a 14 day monitor and told him to return in the summer. Following with optho for his macular degeneration and Dr. Cohen for plantar fasciitis. See previous ov copied and pasted. CARDIO:last saw [facility] Cardiology in 11/2019. Was to follow up in six months. Has appt soon. HTN: Patient is compliant with meds Ye Denies side effects: Yes. Chest pain: No. Dyspnea: No. Edema: No. Palpitations: No. Syncope: No. Dizziness: No. Had inguinal hernia repair recently. Complains of left foot on his heel. No trauma. Discomfort is mild. Does not want xrays. Component Latest Ref Rng & Units 09/02/2021 WBC 3.70 - 11.00 k/uL 3.97 RBC 4.20 - 6.00 m/uL 5.01 Hemoglobin 13.0 - 17.0 g/dL 16.1 Hematocrit 39.0 - 51.0 % 46.6 MCV 80.0 - 100.0 fL 93.0 MCH 26.0 - 34.0 pG 32.1 MCHC 30.5 - 36.0 g/dL 34.5 RDW-CV 11.5 - 15.0 % 13.1 Platelet Count 150 - 400 k/uL 170 MPV 9.0 - 12.7 fL 9.1 Neut% % 49.8 Abs Neut (ANC) 1.45 - 7.50 k/uL 1.97 Lymph% % 34.0 Abs Lymph 1.00 - 4.00 k/uL 1.35 [place]nee% % 10.6 Abs [place] <0.87 k/uL 0.42 Eosin% % 4.3 Abs Eosin <0.46 k/uL 0.17 Baso% % 1.3 Abs Baso <0.11 k/uL 0.05 Nucleated Reds 0 /100 WBC 0.0 Absolute nRBC <0.01 k/uL <0.01 Diff Type Auto Diff Protein, Total 6.3 - 8.0 g/dL 6.2 (L) Albumin 3.9 - 4.9 g/dL 4.0 Calcium 8.5 - 10.2 mg/dL 9.5 Bilirubin, Total 0.2 - 1.3 mg/dL 0.6 Alkaline Phosphatase 38 - 113 U/L 53 AST 14 - 40 U/L 23 Glucose 74 - 99 mg/dL 103 (H) BUN 9 - 24 mg/dL 21 Creatinine 0.73 - 1.22 mg/dL 1.18 Sodium 136 - 144 mmol/L 139 Potassium 3.7 - 5.1 mmol/L 4.9 Chloride 97 - 105 mmol/L 103 CO2 22 - 30 mmol/L 30 Anion Gap 9 - 18 mmol/L 6 (L) ALT 10 - 54 U/L 15 eGFR- >60 eGFR-All Other Races . 60 Cholesterol, Total <200 mg/dL 138 Triglyceride <150 mg/dL 60 HDL Cholesterol >39 mg/dL 63 LDL Cholesterol <100 mg/dL 63 Non HDL Cholesterol <130 mg/dL 75 Fasting Time hrs 10 VLDL Cholesterol <30 mg/dL 12 TC:HDL Ratio <5.10 2.19 LDL:HDL Ratio <2.54 1.00 MEDICATIONS: Current Outpatient Medications Medication Sig fluticasone (FLONASE) 50 mcg/actuation nasal spray Use 2 Sprays in each nostril once daily. Rinse mouth after use. naproxen (NAPROSYN) 500 mg tablet Take 1 tablet by mouth twice daily as needed (pain/inflammation, take with food.). MULTI-VITAMIN ORAL Take by mouth. aspirin, enteric coated (ASPIRIN, ENTERIC COATED) 81 mg EC tablet Take 81 mg by mouth once daily. ascorbic acid (VITAMIN C) 500 mg tablet Take 2 tablets by mouth once daily. amLODIPine (NORVASC) 2.5 mg tablet Take 1 tablet by mouth once daily. Current Facility-Administered Medications Medication Dose Route Frequency perflutren lipid microspheres 1.3 mL in NaCl (PF) 0.9% 10 mL injection (DEFINITY) INTRAVENOUS DIRECTED PRN sodium chloride 0.9 % (flush) 10 mL (BD POSIFLUSH) 10 mL INTRAVENOUS DIRECTED PRN ALLERGIES: ALLERGIES Allergen Reactions Lisinopril Cough PAST MEDICAL HISTORY Diagnosis Date Acute gastritis without mention of hemorrhage Arrhythmia Esophagitis, unspecified Essential hypertension, benign 05/25/2012 GERD (gastroesophageal reflux disease) Paroxysmal A-fib (HCC) transitory 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, 2012 PAST SURGICAL HISTORY Procedure Laterality Date COLONOSCOPY FLX DX W/COLLJ SPEC WHEN PFRMD 05/06/11 EGD TRANSORAL BIOPSY SINGLE/MULTIPLE 05/06/11 ESOPHAGOGASTRODUODENOSCOPY TRANSORAL DIAGNOSTIC 11/28/2009 EGD ESOPHAGOGASTRODUODENOSCOPY TRANSORAL DIAGNOSTIC 02/13/2020 EGD PAST SURGICAL HISTORY OF 2007 bilateral TKA PAST SURGICAL HISTORY OF Right 2003 inguinal hernia PAST SURGICAL HISTORY OF 10/2013 heart valve repair [facility] MAIN RPR 1ST INGUN HRNA AGE 5 YRS/> REDUCIBLE 08/25/2020 Hernia repair, inguinal XCAPSL CTRC RMVL INSJ IO LENS PROSTH W/O ECP Right 06/04/2015 Cataract Extraction with PC IOL XCAPSL CTRC RMVL INSJ IO LENS PROSTH W/O ECP 07/02/2015 Cataract Extraction with PC IOL OS FAMILY HISTORY Problem Relation Age of Onset Alzheimer's Disease Father other (Other) Daughter brain tumor Allergies Daughter None Son No Ocular Disease No Family History Social History Tobacco Use Smoking status: Never Smoker Smokeless tobacco: Never Used Substance Use Topics Alcohol use: No Drug use: No Reviewed current medications, allergies, past medical history, surgical history, family history and social history today. REVIEW OF SYSTEMS GI: Negative for change in bowel habit : Negative All other reviewed and negative other than HPI. HEALTH MAINTENANCE: Reviewed health maintenance issues today ADVANCE DIRECTIVE DISCUSSION -Discussed advanced planning with patient today. They have a DPOA/Living Will:No Chosen surrogate for decision maker:NA Blank DPOA/Living Will forms given:Yes Reminded patients to have copies of their forms brought into the office to have placed in their medical records. Questions were answered. VITALS: BP 102/70 Pulse 60 Resp 16 Wt 86.8 kg (191 lb 6.4 oz) SpO2 92% BMI 25.25 kg/m Last 4 Encounter Wt Readings: Date: Wt: 03/02/2022 86.8 kg (191 lb 6.4 oz) 02/25/2022 87.1 kg (192 lb) 12/04/2021 87.5 kg (193 lb) 11/26/2021 88 kg (194 lb) PHYSICAL EXAMINATION: General appearance: Well appearing, alert, in no acute distress, well-hydrated, well nourished. Skin: Skin color, texture, turgor normal, no suspicious rashes or lesions Head: Normocephalic, no masses, lesions, tenderness or abnormalities Chest: nontender. Lungs: Lungs clear to auscultation. No wheezing, rhonchi, rales Heart: RRR without murmur, gallop, or rubs. No ectopy Abdomen: Normal abdominal exam, Abdomen soft, non-tender. Bowel sounds normal. No masses, organomegaly Extremities: No deformities, edema, skin discoloration, clubbing or cyanosis. Good capillary refill. Musculoskeletal: No joint swelling, deformity, or tenderness Peripheral pulses: Normal Neuro: Negative. ASSESSMENT/PLAN: 1. Chest pain, unspecified type - ICD9: 786.50, ICD10: R07.9 (primary diagnosis) - Red flags for re-assessment reviewed with patient in detail. - Suggested stress echo. Will give us a look at his mvp and rule out ischemia - Red flags for re-assessment reviewed with patient in detail. - ECG COMPLETE-sinus tommy. No acute abnormalities. - XR CHEST 2V FRONTAL/LAT - CBC + DIFF - BASIC METABOLIC PNL - D-DIMER 2. S/P MVR (mitral valve repair) - ICD9: V45.89, ICD10: Z98.890 - stable, per cardiology 3. Bradycardia following surgery - ICD9: 997.1, ICD10: I97.89 4. Postoperative atrial fibrillation (HCC) - ICD9: 997.1, 427.31, ICD10: I97.89, I48.91 5. Essential hypertension, benign - ICD9: 401.1, ICD10: I10 - good control - Continue current medication(s) - Goal of BP <130/80 Diego Huffman RTO in six months and prn. documented in this encounter [facility] 02-25-2022 History of Present illness Narrative Patient presents with: Rhinitis: had this a couple of months ago and needed ATB Cough: sinus drainage HPI: Patient presents today for office visit for acute visit. Started two days ago. Having runny nose on the left side. Has some chronic rhinorrhea. No fever or chills. No sore throat. No sinus pressure. Some cough. No nausea or vomiting or diarrhea. No issues with taste or smell. No diarrhea Not around anyone with covid or flu. MEDICATIONS: Current Outpatient Medications Medication Sig fluticasone (FLONASE) 50 mcg/actuation nasal spray Use 2 Sprays in each nostril once daily. Rinse mouth after use. amLODIPine (NORVASC) 2.5 mg tablet Take 1 tablet by mouth once daily. MULTI-VITAMIN ORAL Take by mouth. aspirin, enteric coated (ASPIRIN, ENTERIC COATED) 81 mg EC tablet Take 81 mg by mouth once daily. ascorbic acid (VITAMIN C) 500 mg tablet Take 2 tablets by mouth once daily. naproxen (NAPROSYN) 500 mg tablet Take 1 tablet by mouth twice daily as needed (pain/inflammation, take with food.). Current Facility-Administered Medications Medication Dose Route Frequency perflutren lipid microspheres 1.3 mL in NaCl (PF) 0.9% 10 mL injection (DEFINITY) INTRAVENOUS DIRECTED PRN sodium chloride 0.9 % (flush) 10 mL (BD POSIFLUSH) 10 mL INTRAVENOUS DIRECTED PRN ALLERGIES: ALLERGIES Allergen Reactions Lisinopril Cough PAST MEDICAL HISTORY Diagnosis Date Acute gastritis without mention of hemorrhage Arrhythmia Esophagitis, unspecified Essential hypertension, benign 05/25/2012 GERD (gastroesophageal reflux disease) Paroxysmal A-fib (HCC) transitory 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, 2012 PAST SURGICAL HISTORY Procedure Laterality Date COLONOSCOPY FLX DX W/COLLJ SPEC WHEN PFRMD 05/06/11 EGD TRANSORAL BIOPSY SINGLE/MULTIPLE 05/06/11 ESOPHAGOGASTRODUODENOSCOPY TRANSORAL DIAGNOSTIC 11/28/2009 EGD ESOPHAGOGASTRODUODENOSCOPY TRANSORAL DIAGNOSTIC 02/13/2020 EGD PAST SURGICAL HISTORY OF 2007 bilateral TKA PAST SURGICAL HISTORY OF Right 2003 inguinal hernia PAST SURGICAL HISTORY OF 10/2013 heart valve repair [facility] MAIN RPR 1ST INGUN HRNA AGE 5 YRS/> REDUCIBLE 08/25/2020 Hernia repair, inguinal XCAPSL CTRC RMVL INSJ IO LENS PROSTH W/O ECP Right 06/04/2015 Cataract Extraction with PC IOL XCAPSL CTRC RMVL INSJ IO LENS PROSTH W/O ECP 07/02/2015 Cataract Extraction with PC IOL OS FAMILY HISTORY Problem Relation Age of Onset Alzheimer's Disease Father other (Other) Daughter brain tumor Allergies Daughter None Son No Ocular Disease No Family History Social History Tobacco Use Smoking status: Never Smoker Smokeless tobacco: Never Used Substance Use Topics Alcohol use: No Drug use: No Reviewed current medications, allergies, past medical history, surgical history, family history and social history today. REVIEW OF SYSTEMS All other reviewed and negative other than HPI. VITALS: BP 102/72 Pulse 68 Wt 87.1 kg (192 lb) SpO2 95% BMI 25.33 kg/m Last 4 Encounter Wt Readings: Date: Wt: 02/25/2022 87.1 kg (192 lb) 12/04/2021 87.5 kg (193 lb) 11/26/2021 88 kg (194 lb) 11/03/2021 89.3 kg (196 lb 12.8 oz) PHYSICAL EXAMINATION: General appearance: Well appearing, alert, in no acute distress, well-hydrated, well nourished. Skin: Skin color, texture, turgor normal, no suspicious rashes or lesions Head: Normocephalic, no masses, lesions, tenderness or abnormalities Eyes: Anicteric sclera. Pupils are equally round and reactive to light. Extraocular movements are intact. Ears: External ears normal, canals clear Nose/Sinuses: Nares normal, septum midline, mucosa normal, no drainage or sinus tenderness Oropharynx: Lips, mucosa, and tongue normal, teeth and gums normal, oropharynx normal Neck: Supple, no adenopath Lungs: Lungs clear to auscultation. No wheezing, rhonchi, rales Heart: RRR without murmur, gallop, or rubs. No ectopy Abdomen: Normal abdominal exam, Abdomen soft, non-tender. Bowel sounds normal. No masses, organomegaly Extremities: No deformities, edema, skin discoloration, clubbing or cyanosis. Good capillary refill. ASSESSMENT/PLAN: 1. URI, acute - ICD9: 465.9, ICD10: J06.9 - Discussed viral etiology and rationale for treatment. - Symptomatic treatment with prn analgesia - Supportive care with fluids and rest - Follow up in one week if symptoms persist or sooner if worsening of symptoms - FLUTICASONE PROPIONATE 50 MCG/ACTUATION NASAL SPRAY,SUSPENSION - COVID WITH FLUA+B, ROUTINE Diego Huffman RTO prn. documented in this encounter [facility] 07-08-2015 History of Past i llness Narrative Problem Noted Date Resolved Date Status post cataract surgery 07/08/2015 Combined form of senile cataract of left eye 07/08/2015 Regular astigmatism of left eye 06/12/2015 11/10/2021 S/P cataract surgery - Right Eye 06/05/2015 11/10/2021 Other and combined forms of senile cataract /0 02/201507/08/2015 Regular astigmatism 03/31/2015 11/10/2021 Presbyopia 03/31/2015 11/10/2021 Post-op Junctional Rhyhtm with paroxysmal A-fib 11/01/2013 04/28/2017 Overview: Afib RVR postop. Early post-op Junctional rhythm. New onset/PAF 11/01 and 11/02 w/ 4 sec conversion pause. Tikosyn ordered by Dr. Garcia on 11/03. Back in afib 11/03 and 11/05. No conversion pauses when patient went in an out of Afib on 11/06. Digoxin added per Dr. Garcia on 11/07, rhythm remains Afib RVR, but rates better controlled now at 120-130's. Asymptomatic. INR 2.1 today. D/c heparin gtt. Continue coumadin, tikosyn and digoxin at discharge. Dosing per Dr. Garcia. No BB/CCB. Will f/u with Dr. Garcia in one week in OPD. ECG at f/u. Stress hyperglycemia 11/01/2013 11/03/2013 Overview: No history of DM with post-op stress hyperglycemia. Managed with Insuilin gtt per CVICU protocol & transferred to floor with dose of lantus. BG normalizing. Discontinue accucheck surveillance & SSI. Atelectasis/pleural effusion/FVO. 10/31/2013 12/26/2014 Overview: Room air. At admission weight. CXR 11/06: Persistent moderate right pleural effusion and trace left effusion. There is associated compressive atelectasis. No definite pneumothorax. Lasix PRN weight gain at discharge. Encourage Cough and deep breath, Positive expiratory pressure exercises and increased ambulation. CXR at f/u. Fluid overload 10/31/2013 10/31/2013 Overview: mild fluid overload from surgery . plan - start gentle diuresis - closely monitor fluid and electrolytes. Mechanically assisted ventilation 10/30/2013 10/31/2013 Overview: spcv / rate 12 / fio2 50% / peep 8 grade l view wte Acute pain 10/30/2013 12/26/2014 Overview: Back pain controlled with with Tylenol, Percolone and Ultram PRN. Continue at discharge. Cardiac insufficiency following cardiac surgery 10/30/2013 11/01/2013 Overview: RV dysfxn post pump requiring Epi 10/31/2013 Epi weaned off for SVO2 > 59. Started gentle diuresis. Pre-op testing 10/23/2013 11/03/2013 Overview: Images from the original note were not included. [facility] Surgeon: Jaron Simmons M.D. Informed Consent Completed: yes STS Score: 0.710 CAD: No Is intended procedure a CABG: No - is a beta dariel ordered? No - reason: not indicated H & P completed: Yes PA/LAT: Completed CT: Completed MRI: N/A LE US: Completed Cath: Yes - reviewed: Yes Echo:Completed EKG: Completed EF %: 59 PI's: N/A Carotid: N/A Mapping: N/A Dental: Pending PFT's: N/A Basename 10/22/13 0713 WBC 4.57 HB 16.3 HCT 46.3 PLT 155 INR 1.0 CREAT 0.86 UA: Normal HCG:N/A ABO/ABO Confirmed: Yes Blood ordered: No SA Swab: Yes - results: Pending Last Dose of Anticoagulation: none Op Note: N/A Pacemaker Check: N/A Consults: none DM: No Cardiac Surgical prep: N/A SIGNATURE: HUNG Juarez [employer] CHECKED BY: DATE of SERVICE: 10/23/2013 TIME of SERVICE: 8:57 AM Mitral valve disease, 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 - s/p 10/30/2013 robotically assisted MV repair. -surgical pathology: Mitral valve, segmental resection - Myxoid degeneration. -Post-op echo: trivial MR, pk/mn gradients 6/2, trivial pericardial effusion, RVSP 50. EF 56%. -Continue ASA. BB held for junctional early postop Difficulty voiding 12/21/2012 11/03/2013 Supraspinatus tendonitis 06/28/2011 017 Acute gastritis without mention of hemorrhage 12/26/2014 Esophagitis, unspecified 05/06/2011 017 Overview: -Remote history of esophagitis. Managed with Prevacid as outpatient. No complaints. Continue PPI at discharge. 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) 04/08/2011 09/01/20 21 documented as of this encounter (statuses as of 02/25/2022) [facility]2015 History of Past illness Narrative* Problem Noted Date Resolved Date Status post cataract surgery 07/08/2015 Combined form of senile cataract of left eye 07/08/2015 Regular astigmatism of left eye 06/12/2015 11/10/2021 S/P cataract surgery - Right Eye 06/05/2015 11/10/2021 Other and combined forms of senile cataract 02/201507/08/2015 Regular astigmatism 03/31/2015 11/10/2021 Presbyopia 03/31/2015 11/10/2021 Post-op Junctional Rhyhtm with paroxysmal A-fib 11/01/2013 04/28/2017 Overview: Afib RVR postop. Early post-op Junctional rhythm. New onset/PAF 11/01 and 11/02 w/ 4 sec conversion pause. Tikosyn ordered by Dr. Garcia on 11/03. Back in afib 11/03 and 11/05. No conversion pauses when patient went in an out of Afib on 11/06. Digoxin added per Dr. Garcia on 11/07, rhythm remains Afib RVR, but rates better controlled now at 120-130's. Asymptomatic. INR 2.1 today. D/c heparin gtt. Continue coumadin, tikosyn and digoxin at discharge. Dosing per Dr. Garcia. No BB/CCB. Will f/u with Dr. Garcia in one week in OPD. ECG at f/u. Stress hyperglycemia 11/01/2013 11/03/2013 Overview: No history of DM with post-op stress hyperglycemia. Managed with Insuilin gtt per CVICU protocol & transferred to floor with dose of lantus. BG normalizing. Discontinue accucheck surveillance & SSI. Atelectasis/pleural effusion/FVO. 10/31/2013 12/26/2014 Overview: Room air. At admission weight. CXR 11/06: Persistent moderate right pleural effusion and trace left effusion. There is associated compressive atelectasis. No definite pneumothorax. Lasix PRN weight gain at discharge. Encourage Cough and deep breath, Positive expiratory pressure exercises and increased ambulation. CXR at f/u. Fluid overload 10/31/2013 10/31/2013 Overview: mild fluid overload from surgery . plan - start gentle diuresis - closely monitor fluid and electrolytes. Mechanically assisted ventilation 10/30/2013 10/31/2013 Overview: spcv / rate 12 / fio2 50% / peep 8 grade l view wte Acute pain 10/30/2013 12/26/2014 Overview: Back pain controlled with with Tylenol, Percolone and Ultram PRN. Continue at discharge. Cardiac insufficiency following cardiac surgery 10/30/2013 11/01/2013 Overview: RV dysfxn post pump requiring Epi 10/31/2013 Epi weaned off for SVO2 > 59. Started gentle diuresis. Pre-op testing 10/23/2013 11/03/2013 Overview: Images from the original note were not included. [facility] Surgeon: Jaron Simmons M.D. Informed Consent Completed: yes STS Score: 0.710 CAD: No Is intended procedure a CABG: No - is a beta dariel ordered? No - reason: not indicated H & P completed: Yes PA/LAT: Completed CT: Completed MRI: N/A LE US: Completed Cath: Yes - reviewed: Yes Echo:Completed EKG: Completed EF %: 59 PI's: N/A Carotid: N/A Mapping: N/A Dental: Pending PFT's: N/A Basename 10/22/13 0713 WBC 4.57 HB 16.3 HCT 46.3 PLT 155 INR 1.0 CREAT 0.86 UA: Normal HCG:N/A ABO/ABO Confirmed: Yes Blood ordered: No SA Swab: Yes - results: Pending Last Dose of Anticoagulation: none Op Note: N/A Pacemaker Check: N/A Consults: none DM: No Cardiac Surgical prep: N/A SIGNATURE: HUNG Juarez [employer] CHECKED BY: DATE of SERVICE: 10/23/2013 TIME of SERVICE: 8:57 AM Mitral valve disease, 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 - s/p 10/30/2013 robotically assisted MV repair. -surgical pathology: Mitral valve, segmental resection - Myxoid degeneration. -Post-op echo: trivial MR, pk/mn gradients 6/2, trivial pericardial effusion, RVSP 50. EF 56%. -Continue ASA. BB held for junctional early postop Difficulty voiding 12/21/2012 11/03/2013 Supraspinatus tendonitis 06/28/2011 017 Acute gastritis without mention of hemorrhage 12/26/2014 Esophagitis, unspecified 05/06/2011 017 Overview: -Remote history of esophagitis. Managed with Prevacid as outpatient. No complaints. Continue PPI at discharge. 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) 04/08/2011 09/01/20 21 documented as of this encounter (statuses as of 03/02/2022) [facility]2015 History of Past illness Narrative* Problem Noted Date Resolved Date Status post cataract surgery 07/08/2015 Combined form of senile cataract of left eye 07/08/2015 Regular astigmatism of left eye 06/12/2015 11/10/2021 S/P cataract surgery - Right Eye 06/05/2015 11/10/2021 Other and combined forms of senile cataract 02/201507/08/2015 Regular astigmatism 03/31/2015 11/10/2021 Presbyopia 03/31/2015 11/10/2021 Post-op Junctional Rhyhtm with paroxysmal A-fib 11/01/2013 04/28/2017 Overview: Afib RVR postop. Early post-op Junctional rhythm. New onset/PAF 11/01 and 11/02 w/ 4 sec conversion pause. Tikosyn ordered by Dr. Garcia on 11/03. Back in afib 11/03 and 11/05. No conversion pauses when patient went in an out of Afib on 11/06. Digoxin added per Dr. Garcia on 11/07, rhythm remains Afib RVR, but rates better controlled now at 120-130's. Asymptomatic. INR 2.1 today. D/c heparin gtt. Continue coumadin, tikosyn and digoxin at discharge. Dosing per Dr. Garcia. No BB/CCB. Will f/u with Dr. Garcia in one week in OPD. ECG at f/u. Stress hyperglycemia 11/01/2013 11/03/2013 Overview: No history of DM with post-op stress hyperglycemia. Managed with Insuilin gtt per CVICU protocol & transferred to floor with dose of lantus. BG normalizing. Discontinue accucheck surveillance & SSI. Atelectasis/pleural effusion/FVO. 10/31/2013 12/26/2014 Overview: Room air. At admission weight. CXR 11/06: Persistent moderate right pleural effusion and trace left effusion. There is associated compressive atelectasis. No definite pneumothorax. Lasix PRN weight gain at discharge. Encourage Cough and deep breath, Positive expiratory pressure exercises and increased ambulation. CXR at f/u. Fluid overload 10/31/2013 10/31/2013 Overview: mild fluid overload from surgery . plan - start gentle diuresis - closely monitor fluid and electrolytes. Mechanically assisted ventilation 10/30/2013 10/31/2013 Overview: spcv / rate 12 / fio2 50% / peep 8 grade l view wte Acute pain 10/30/2013 12/26/2014 Overview: Back pain controlled with with Tylenol, Percolone and Ultram PRN. Continue at discharge. Cardiac insufficiency following cardiac surgery 10/30/2013 11/01/2013 Overview: RV dysfxn post pump requiring Epi 10/31/2013 Epi weaned off for SVO2 > 59. Started gentle diuresis. Pre-op testing 10/23/2013 11/03/2013 Overview: Images from the original note were not included. [facility] Surgeon: Jaron Simmons M.D. Informed Consent Completed: yes STS Score: 0.710 CAD: No Is intended procedure a CABG: No - is a beta dariel ordered? No - reason: not indicated H & P completed: Yes PA/LAT: Completed CT: Completed MRI: N/A LE US: Completed Cath: Yes - reviewed: Yes Echo:Completed EKG: Completed EF %: 59 PI's: N/A Carotid: N/A Mapping: N/A Dental: Pending PFT's: N/A Basename 10/22/13 0713 WBC 4.57 HB 16.3 HCT 46.3 PLT 155 INR 1.0 CREAT 0.86 UA: Normal HCG:N/A ABO/ABO Confirmed: Yes Blood ordered: No SA Swab: Yes - results: Pending Last Dose of Anticoagulation: none Op Note: N/A Pacemaker Check: N/A Consults: none DM: No Cardiac Surgical prep: N/A SIGNATURE: HUNG Juarez [facility] CHECKED BY: DATE of SERVICE: 10/23/2013 TIME of SERVICE: 8:57 AM Mitral valve disease, 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 - s/p 10/30/2013 robotically assisted MV repair. -surgical pathology: Mitral valve, segmental resection - Myxoid degeneration. -Post-op echo: trivial MR, pk/mn gradients 04/29, trivial pericardial effusion, RVSP 50. EF 56%. -Continue ASA. BB held for junctional early postop Difficulty voiding 12/21/2012 11/03/2013 Supraspinatus tendonitis 06/28/2011 017 Acute gastritis without mention of hemorrhage 12/26/2014 Esophagitis, unspecified 05/06/2011 017 Overview: -Remote history of esophagitis. Managed with Prevacid as outpatient. No complaints. Continue PPI at discharge. 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) 04/08/2011 09/01/20 21 documented as of this encounter (statuses as of 03/11/2022) [facility]2015 History of Past illness Narrative* Problem Noted Date Resolved Date Status post cataract surgery 07/08/2015 Combined form of senile cataract of left eye 07/08/2015 Regular astigmatism of left eye 06/12/2015 11/10/2021 S/P cataract surgery - Right Eye 06/05/2015 11/10/2021 Other and combined forms of senile cataract /02/201507/08/2015 Regular astigmatism 03/31/2015 11/10/2021 Presbyopia 03/31/2015 11/10/2021 Post-op Junctional Rhyhtm with paroxysmal A-fib 11/01/2013 04/28/2017 Overview: Afib RVR postop. Early post-op Junctional rhythm. New onset/PAF 11/01 and 11/02 w/ 4 sec conversion pause. Tikosyn ordered by Dr. Garcia on 11/03. Back in afib 11/03 and 11/05. No conversion pauses when patient went in an out of Afib on 11/06. Digoxin added per Dr. Garcia on 11/07, rhythm remains Afib RVR, but rates better controlled now at 120-130's. Asymptomatic. INR 2.1 today. D/c heparin gtt. Continue coumadin, tikosyn and digoxin at discharge. Dosing per Dr. Garcia. No BB/CCB. Will f/u with Dr. Garcia in one week in OPD. ECG at f/u. Stress hyperglycemia 11/01/2013 11/03/2013 Overview: No history of DM with post-op stress hyperglycemia. Managed with Insuilin gtt per CVICU protocol & transferred to floor with dose of lantus. BG normalizing. Discontinue accucheck surveillance & SSI. Atelectasis/pleural effusion/FVO. 10/31/2013 12/26/2014 Overview: Room air. At admission weight. CXR 11/06: Persistent moderate right pleural effusion and trace left effusion. There is associated compressive atelectasis. No definite pneumothorax. Lasix PRN weight gain at discharge. Encourage Cough and deep breath, Positive expiratory pressure exercises and increased ambulation. CXR at f/u. Fluid overload 10/31/2013 10/31/2013 Overview: mild fluid overload from surgery . plan - start gentle diuresis - closely monitor fluid and electrolytes. Mechanically assisted ventilation 10/30/2013 10/31/2013 Overview: spcv / rate 12 / fio2 50% / peep 8 grade l view wte Acute pain 10/30/2013 12/26/2014 Overview: Back pain controlled with with Tylenol, Percolone and Ultram PRN. Continue at discharge. Cardiac insufficiency following cardiac surgery 10/30/2013 11/01/2013 Overview: RV dysfxn post pump requiring Epi 10/31/2013 Epi weaned off for SVO2 > 59. Started gentle diuresis. Pre-op testing 10/23/2013 11/03/2013 Overview: Images from the original note were not included. [facility] Surgeon: Jaron Simmons M.D. Informed Consent Completed: yes STS Score: 0.710 CAD: No Is intended procedure a CABG: No - is a beta dariel ordered? No - reason: not indicated H & P completed: Yes PA/LAT: Completed CT: Completed MRI: N/A LE US: Completed Cath: Yes - reviewed: Yes Echo:Completed EKG: Completed EF %: 59 PI's: N/A Carotid: N/A Mapping: N/A Dental: Pending PFT's: N/A Basename 10/22/13 0713 WBC 4.57 HB 16.3 HCT 46.3 PLT 155 INR 1.0 CREAT 0.86 UA: Normal HCG:N/A ABO/ABO Confirmed: Yes Blood ordered: No SA Swab: Yes - results: Pending Last Dose of Anticoagulation: none Op Note: N/A Pacemaker Check: N/A Consults: none DM: No Cardiac Surgical prep: N/A SIGNATURE: HUNG Juarez [employer] CHECKED BY: DATE of SERVICE: 10/23/2013 TIME of SERVICE: 8:57 AM Mitral valve disease, 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 - s/p 10/30/2013 robotically assisted MV repair. -surgical pathology: Mitral valve, segmental resection - Myxoid degeneration. -Post-op echo: trivial MR, pk/mn gradients 6/2, trivial pericardial effusion, RVSP 50. EF 56%. -Continue ASA. BB held for junctional early postop Difficulty voiding 12/21/2012 11/03/2013 Supraspinatus tendonitis 06/28/2011 017 Acute gastritis without mention of hemorrhage 12/26/2014 Esophagitis, unspecified 05/06/2011 017 Overview: -Remote history of esophagitis. Managed with Prevacid as outpatient. No complaints. Continue PPI at discharge. 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) 04/08/2011 09/01/20 21 documented as of this encounter (statuses as of 04/16/2022) [facility]2015 History of Past illness Narrative* Problem Noted Date Resolved Date Status post cataract surgery 07/08/2015 Combined form of senile cataract of left eye 07/08/2015 Regular astigmatism of left eye 06/12/2015 11/10/2021 S/P cataract surgery - Right Eye 06/05/2015 11/10/2021 Other and combined forms of senile cataract 02/201507/08/2015 Regular astigmatism 03/31/2015 11/10/2021 Presbyopia 03/31/2015 11/10/2021 Post-op Junctional Rhyhtm with paroxysmal A-fib 11/01/2013 04/28/2017 Overview: Afib RVR postop. Early post-op Junctional rhythm. New onset/PAF 11/01 and 11/02 w/ 4 sec conversion pause. Tikosyn ordered by Dr. Garcia on 11/03. Back in afib 11/03 and 11/05. No conversion pauses when patient went in an out of Afib on 11/06. Digoxin added per Dr. Garcia on 11/07, rhythm remains Afib RVR, but rates better controlled now at 120-130's. Asymptomatic. INR 2.1 today. D/c heparin gtt. Continue coumadin, tikosyn and digoxin at discharge. Dosing per Dr. Garcia. No BB/CCB. Will f/u with Dr. Garcia in one week in OPD. ECG at f/u. Stress hyperglycemia 11/01/2013 11/03/2013 Overview: No history of DM with post-op stress hyperglycemia. Managed with Insuilin gtt per CVICU protocol & transferred to floor with dose of lantus. BG normalizing. Discontinue accucheck surveillance & SSI. Atelectasis/pleural effusion/FVO. 10/31/2013 12/26/2014 Overview: Room air. At admission weight. CXR 11/06: Persistent moderate right pleural effusion and trace left effusion. There is associated compressive atelectasis. No definite pneumothorax. Lasix PRN weight gain at discharge. Encourage Cough and deep breath, Positive expiratory pressure exercises and increased ambulation. CXR at f/u. Fluid overload 10/31/2013 10/31/2013 Overview: mild fluid overload from surgery . plan - start gentle diuresis - closely monitor fluid and electrolytes. Mechanically assisted ventilation 10/30/2013 10/31/2013 Overview: spcv / rate 12 / fio2 50% / peep 8 grade l view wte Acute pain 10/30/2013 12/26/2014 Overview: Back pain controlled with with Tylenol, Percolone and Ultram PRN. Continue at discharge. Cardiac insufficiency following cardiac surgery 10/30/2013 11/01/2013 Overview: RV dysfxn post pump requiring Epi 10/31/2013 Epi weaned off for SVO2 > 59. Started gentle diuresis. Pre-op testing 10/23/2013 11/03/2013 Overview: Images from the original note were not included. [facility] Surgeon: Jaron Simmons M.D. Informed Consent Completed: yes STS Score: 0.710 CAD: No Is intended procedure a CABG: No - is a beta dariel ordered? No - reason: not indicated H & P completed: Yes PA/LAT: Completed CT: Completed MRI: N/A LE US: Completed Cath: Yes - reviewed: Yes Echo:Completed EKG: Completed EF %: 59 PI's: N/A Carotid: N/A Mapping: N/A Dental: Pending PFT's: N/A Basename 10/22/13 0713 WBC 4.57 HB 16.3 HCT 46.3 PLT 155 INR 1.0 CREAT 0.86 UA: Normal HCG:N/A ABO/ABO Confirmed: Yes Blood ordered: No SA Swab: Yes - results: Pending Last Dose of Anticoagulation: none Op Note: N/A Pacemaker Check: N/A Consults: none DM: No Cardiac Surgical prep: N/A SIGNATURE: HUNG Juarez [facility] CHECKED BY: DATE of SERVICE: 10/23/2013 TIME of SERVICE: 8:57 AM Mitral valve disease, 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 - s/p 10/30/2013 robotically assisted MV repair. -surgical pathology: Mitral valve, segmental resection - Myxoid degeneration. -Post-op echo: trivial MR, pk/mn gradients 6/2, trivial pericardial effusion, RVSP 50. EF 56%. -Continue ASA. BB held for junctional early postop Difficulty voiding 12/21/2012 11/03/2013 Supraspinatus tendonitis 06/28/2011 017 Acute gastritis without mention of hemorrhage 12/26/2014 Esophagitis, unspecified 05/06/2011 017 Overview: -Remote history of esophagitis. Managed with Prevacid as outpatient. No complaints. Continue PPI at discharge. 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) 04/08/2011 09/01/20 21 documented as of this encounter (statuses as of 04/17/2022) [facility]2015 History of Past illness Narrative* Problem Noted Date Resolved Date Status post cataract surgery 07/08/2015 Combined form of senile cataract of left eye 07/08/2015 Regular astigmatism of left eye 06/12/2015 11/10/2021 S/P cataract surgery - Right Eye 06/05/2015 11/10/2021 Other and combined forms of senile cataract 02/201507/08/2015 Regular astigmatism 03/31/2015 11/10/2021 Presbyopia 03/31/2015 11/10/2021 Post-op Junctional Rhyhtm with paroxysmal A-fib 11/01/2013 04/28/2017 Overview: Afib RVR postop. Early post-op Junctional rhythm. New onset/PAF 11/01 and 11/02 w/ 4 sec conversion pause. Tikosyn ordered by Dr. Garcia on 11/03. Back in afib 11/03 and 11/05. No conversion pauses when patient went in an out of Afib on 11/06. Digoxin added per Dr. Garcia on 11/07, rhythm remains Afib RVR, but rates better controlled now at 120-130's. Asymptomatic. INR 2.1 today. D/c heparin gtt. Continue coumadin, tikosyn and digoxin at discharge. Dosing per Dr. Garcia. No BB/CCB. Will f/u with Dr. Garcia in one week in OPD. ECG at f/u. Stress hyperglycemia 11/01/2013 11/03/2013 Overview: No history of DM with post-op stress hyperglycemia. Managed with Insuilin gtt per CVICU protocol & transferred to floor with dose of lantus. BG normalizing. Discontinue accucheck surveillance & SSI. Atelectasis/pleural effusion/FVO. 10/31/2013 12/26/2014 Overview: Room air. At admission weight. CXR 11/06: Persistent moderate right pleural effusion and trace left effusion. There is associated compressive atelectasis. No definite pneumothorax. Lasix PRN weight gain at discharge. Encourage Cough and deep breath, Positive expiratory pressure exercises and increased ambulation. CXR at f/u. Fluid overload 10/31/2013 10/31/2013 Overview: mild fluid overload from surgery . plan - start gentle diuresis - closely monitor fluid and electrolytes. Mechanically assisted ventilation 10/30/2013 10/31/2013 Overview: spcv / rate 12 / fio2 50% / peep 8 grade l view wte Acute pain 10/30/2013 12/26/2014 Overview: Back pain controlled with with Tylenol, Percolone and Ultram PRN. Continue at discharge. Cardiac insufficiency following cardiac surgery 10/30/2013 11/01/2013 Overview: RV dysfxn post pump requiring Epi 10/31/2013 Epi weaned off for SVO2 > 59. Started gentle diuresis. Pre-op testing 10/23/2013 11/03/2013 Overview: Images from the original note were not included. [facility] Surgeon: Jaron Simmons M.D. Informed Consent Completed: yes STS Score: 0.710 CAD: No Is intended procedure a CABG: No - is a beta dariel ordered? No - reason: not indicated H & P completed: Yes PA/LAT: Completed CT: Completed MRI: N/A LE US: Completed Cath: Yes - reviewed: Yes Echo:Completed EKG: Completed EF %: 59 PI's: N/A Carotid: N/A Mapping: N/A Dental: Pending PFT's: N/A Basename 10/22/13 0713 WBC 4.57 HB 16.3 HCT 46.3 PLT 155 INR 1.0 CREAT 0.86 UA: Normal HCG:N/A ABO/ABO Confirmed: Yes Blood ordered: No SA Swab: Yes - results: Pending Last Dose of Anticoagulation: none Op Note: N/A Pacemaker Check: N/A Consults: none DM: No Cardiac Surgical prep: N/A SIGNATURE: HUNG Juarez [employer] CHECKED BY: DATE of SERVICE: 10/23/2013 TIME of SERVICE: 8:57 AM Mitral valve disease, 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 - s/p 10/30/2013 robotically assisted MV repair. -surgical pathology: Mitral valve, segmental resection - Myxoid degeneration. -Post-op echo: trivial MR, pk/mn gradients 6/2, trivial pericardial effusion, RVSP 50. EF 56%. -Continue ASA. BB held for junctional early postop Difficulty voiding 12/21/2012 11/03/2013 Supraspinatus tendonitis 06/28/2011 017 Acute gastritis without mention of hemorrhage 12/26/2014 Esophagitis, unspecified 05/06/2011 017 Overview: -Remote history of esophagitis. Managed with Prevacid as outpatient. No complaints. Continue PPI at discharge. 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) 04/08/2011 09/01/20 21 documented as of this encounter (statuses as of 04/19/2022) [facility]2015 History of Past illness Narrative* Problem Noted Date Resolved Date Status post cataract surgery 07/08/2015 Combined form of senile cataract of left eye 07/08/2015 Regular astigmatism of left eye 06/12/2015 11/10/2021 S/P cataract surgery - Right Eye 06/05/2015 11/10/2021 Other and combined forms of senile cataract 02/201507/08/2015 Regular astigmatism 03/31/2015 11/10/2021 Presbyopia 03/31/2015 11/10/2021 Post-op Junctional Rhyhtm with paroxysmal A-fib 11/01/2013 04/28/2017 Overview: Afib RVR postop. Early post-op Junctional rhythm. New onset/PAF 11/01 and 11/02 w/ 4 sec conversion pause. Tikosyn ordered by Dr. Garcia on 11/03. Back in afib 11/03 and 11/05. No conversion pauses when patient went in an out of Afib on 11/06. Digoxin added per Dr. Garcia on 11/07, rhythm remains Afib RVR, but rates better controlled now at 120-130's. Asymptomatic. INR 2.1 today. D/c heparin gtt. Continue coumadin, tikosyn and digoxin at discharge. Dosing per Dr. Garcia. No BB/CCB. Will f/u with Dr. Garcia in one week in OPD. ECG at f/u. Stress hyperglycemia 11/01/2013 11/03/2013 Overview: No history of DM with post-op stress hyperglycemia. Managed with Insuilin gtt per CVICU protocol & transferred to floor with dose of lantus. BG normalizing. Discontinue accucheck surveillance & SSI. Atelectasis/pleural effusion/FVO. 10/31/2013 12/26/2014 Overview: Room air. At admission weight. CXR 11/06: Persistent moderate right pleural effusion and trace left effusion. There is associated compressive atelectasis. No definite pneumothorax. Lasix PRN weight gain at discharge. Encourage Cough and deep breath, Positive expiratory pressure exercises and increased ambulation. CXR at f/u. Fluid overload 10/31/2013 10/31/2013 Overview: mild fluid overload from surgery . plan - start gentle diuresis - closely monitor fluid and electrolytes. Mechanically assisted ventilation 10/30/2013 10/31/2013 Overview: spcv / rate 12 / fio2 50% / peep 8 grade l view wte Acute pain 10/30/2013 12/26/2014 Overview: Back pain controlled with with Tylenol, Percolone and Ultram PRN. Continue at discharge. Cardiac insufficiency following cardiac surgery 10/30/2013 11/01/2013 Overview: RV dysfxn post pump requiring Epi 10/31/2013 Epi weaned off for SVO2 > 59. Started gentle diuresis. Pre-op testing 10/23/2013 11/03/2013 Overview: Images from the original note were not included. [facility] Surgeon: Jaron Simmons M.D. Informed Consent Completed: yes STS Score: 0.710 CAD: No Is intended procedure a CABG: No - is a beta dariel ordered? No - reason: not indicated H & P completed: Yes PA/LAT: Completed CT: Completed MRI: N/A LE US: Completed Cath: Yes - reviewed: Yes Echo:Completed EKG: Completed EF %: 59 PI's: N/A Carotid: N/A Mapping: N/A Dental: Pending PFT's: N/A Basename 10/22/13 0713 WBC 4.57 HB 16.3 HCT 46.3 PLT 155 INR 1.0 CREAT 0.86 UA: Normal HCG:N/A ABO/ABO Confirmed: Yes Blood ordered: No SA Swab: Yes - results: Pending Last Dose of Anticoagulation: none Op Note: N/A Pacemaker Check: N/A Consults: none DM: No Cardiac Surgical prep: N/A SIGNATURE: HUNG Juarez [employer] CHECKED BY: DATE of SERVICE: 10/23/2013 TIME of SERVICE: 8:57 AM Mitral valve disease, 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 - s/p 10/30/2013 robotically assisted MV repair. -surgical pathology: Mitral valve, segmental resection - Myxoid degeneration. -Post-op echo: trivial MR, pk/mn gradients 6/2, trivial pericardial effusion, RVSP 50. EF 56%. -Continue ASA. BB held for junctional early postop Difficulty voiding 12/21/2012 11/03/2013 Supraspinatus tendonitis 06/28/2011 017 Acute gastritis without mention of hemorrhage 12/26/2014 Esophagitis, unspecified 05/06/2011 017 Overview: -Remote history of esophagitis. Managed with Prevacid as outpatient. No complaints. Continue PPI at discharge. 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) 04/08/2011 09/01/20 21 documented as of this encounter (statuses as of 04/20/2022) [facility]2015 History of Past illness Narrative* Problem Noted Date Resolved Date Status post cataract surgery 07/08/2015 Combined form of senile cataract of left eye 07/08/2015 Regular astigmatism of left eye 06/12/2015 11/10/2021 S/P cataract surgery - Right Eye 06/05/2015 11/10/2021 Other and combined forms of senile cataract /02/201507/08/2015 Regular astigmatism 03/31/2015 11/10/2021 Presbyopia 03/31/2015 11/10/2021 Post-op Junctional Rhyhtm with paroxysmal A-fib 11/01/2013 04/28/2017 Overview: Afib RVR postop. Early post-op Junctional rhythm. New onset/PAF 11/01 and 11/02 w/ 4 sec conversion pause. Tikosyn ordered by Dr. Garcia on 11/03. Back in afib 11/03 and 11/05. No conversion pauses when patient went in an out of Afib on 11/06. Digoxin added per Dr. Garcia on 11/07, rhythm remains Afib RVR, but rates better controlled now at 120-130's. Asymptomatic. INR 2.1 today. D/c heparin gtt. Continue coumadin, tikosyn and digoxin at discharge. Dosing per Dr. Garcia. No BB/CCB. Will f/u with Dr. Garcia in one week in OPD. ECG at f/u. Stress hyperglycemia 11/01/2013 11/03/2013 Overview: No history of DM with post-op stress hyperglycemia. Managed with Insuilin gtt per CVICU protocol & transferred to floor with dose of lantus. BG normalizing. Discontinue accucheck surveillance & SSI. Atelectasis/pleural effusion/FVO. 10/31/2013 12/26/2014 Overview: Room air. At admission weight. CXR 11/06: Persistent moderate right pleural effusion and trace left effusion. There is associated compressive atelectasis. No definite pneumothorax. Lasix PRN weight gain at discharge. Encourage Cough and deep breath, Positive expiratory pressure exercises and increased ambulation. CXR at f/u. Fluid overload 10/31/2013 10/31/2013 Overview: mild fluid overload from surgery . plan - start gentle diuresis - closely monitor fluid and electrolytes. Mechanically assisted ventilation 10/30/2013 10/31/2013 Overview: spcv / rate 12 / fio2 50% / peep 8 grade l view wte Acute pain 10/30/2013 12/26/2014 Overview: Back pain controlled with with Tylenol, Percolone and Ultram PRN. Continue at discharge. Cardiac insufficiency following cardiac surgery 10/30/2013 11/01/2013 Overview: RV dysfxn post pump requiring Epi 10/31/2013 Epi weaned off for SVO2 > 59. Started gentle diuresis. Pre-op testing 10/23/2013 11/03/2013 Overview: Images from the original note were not included. [facility] Surgeon: Jaron Simmons M.D. Informed Consent Completed: yes STS Score: 0.710 CAD: No Is intended procedure a CABG: No - is a beta dariel ordered? No - reason: not indicated H & P completed: Yes PA/LAT: Completed CT: Completed MRI: N/A LE US: Completed Cath: Yes - reviewed: Yes Echo:Completed EKG: Completed EF %: 59 PI's: N/A Carotid: N/A Mapping: N/A Dental: Pending PFT's: N/A Basename 10/22/13 0713 WBC 4.57 HB 16.3 HCT 46.3 PLT 155 INR 1.0 CREAT 0.86 UA: Normal HCG:N/A ABO/ABO Confirmed: Yes Blood ordered: No SA Swab: Yes - results: Pending Last Dose of Anticoagulation: none Op Note: N/A Pacemaker Check: N/A Consults: none DM: No Cardiac Surgical prep: N/A SIGNATURE: HUNG Juarez [employer] CHECKED BY: DATE of SERVICE: 10/23/2013 TIME of SERVICE: 8:57 AM Mitral valve disease, 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 - s/p 10/30/2013 robotically assisted MV repair. -surgical pathology: Mitral valve, segmental resection - Myxoid degeneration. -Post-op echo: trivial MR, pk/mn gradients /, trivial pericardial effusion, RVSP 50. EF 56%. -Continue ASA. BB held for junctional early postop Difficulty voiding 12/21/2012 11/03/2013 Supraspinatus tendonitis 06/28/2011 017 Acute gastritis without mention of hemorrhage 12/26/2014 Esophagitis, unspecified 05/06/2011 017 Overview: -Remote history of esophagitis. Managed with Prevacid as outpatient. No complaints. Continue PPI at discharge. 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) 04/08/2011 09/01/20 21 documented as of this encounter (statuses as of 05/25/2022) [facility]2015 History of Past illness Narrative* Problem Noted Date Resolved Date Status post cataract surgery 07/08/2015 Combined form of senile cataract of left eye 07/08/2015 Regular astigmatism of left eye 06/12/2015 11/10/2021 S/P cataract surgery - Right Eye 06/05/2015 11/10/2021 Other and combined forms of senile cataract 02/201507/08/2015 Regular astigmatism 03/31/2015 11/10/2021 Presbyopia 03/31/2015 11/10/2021 Post-op Junctional Rhyhtm with paroxysmal A-fib 11/01/2013 04/28/2017 Overview: Afib RVR postop. Early post-op Junctional rhythm. New onset/PAF 11/01 and 11/02 w/ 4 sec conversion pause. Tikosyn ordered by Dr. Garcia on 11/03. Back in afib 11/03 and 11/05. No conversion pauses when patient went in an out of Afib on 11/06. Digoxin added per Dr. Garcia on 11/07, rhythm remains Afib RVR, but rates better controlled now at 120-130's. Asymptomatic. INR 2.1 today. D/c heparin gtt. Continue coumadin, tikosyn and digoxin at discharge. Dosing per Dr. Garcia. No BB/CCB. Will f/u with Dr. Garcia in one week in OPD. ECG at f/u. Stress hyperglycemia 11/01/2013 11/03/2013 Overview: No history of DM with post-op stress hyperglycemia. Managed with Insuilin gtt per CVICU protocol & transferred to floor with dose of lantus. BG normalizing. Discontinue accucheck surveillance & SSI. Atelectasis/pleural effusion/FVO. 10/31/2013 12/26/2014 Overview: Room air. At admission weight. CXR 11/06: Persistent moderate right pleural effusion and trace left effusion. There is associated compressive atelectasis. No definite pneumothorax. Lasix PRN weight gain at discharge. Encourage Cough and deep breath, Positive expiratory pressure exercises and increased ambulation. CXR at f/u. Fluid overload 10/31/2013 10/31/2013 Overview: mild fluid overload from surgery . plan - start gentle diuresis - closely monitor fluid and electrolytes. Mechanically assisted ventilation 10/30/2013 10/31/2013 Overview: spcv / rate 12 / fio2 50% / peep 8 grade l view wte Acute pain 10/30/2013 12/26/2014 Overview: Back pain controlled with with Tylenol, Percolone and Ultram PRN. Continue at discharge. Cardiac insufficiency following cardiac surgery 10/30/2013 11/01/2013 Overview: RV dysfxn post pump requiring Epi 10/31/2013 Epi weaned off for SVO2 > 59. Started gentle diuresis. Pre-op testing 10/23/2013 11/03/2013 Overview: Images from the original note were not included. [facility] Surgeon: Jaron Simmons M.D. Informed Consent Completed: yes STS Score: 0.710 CAD: No Is intended procedure a CABG: No - is a beta dariel ordered? No - reason: not indicated H & P completed: Yes PA/LAT: Completed CT: Completed MRI: N/A LE US: Completed Cath: Yes - reviewed: Yes Echo:Completed EKG: Completed EF %: 59 PI's: N/A Carotid: N/A Mapping: N/A Dental: Pending PFT's: N/A Basename 10/22/13 0713 WBC 4.57 HB 16.3 HCT 46.3 PLT 155 INR 1.0 CREAT 0.86 UA: Normal HCG:N/A ABO/ABO Confirmed: Yes Blood ordered: No SA Swab: Yes - results: Pending Last Dose of Anticoagulation: none Op Note: N/A Pacemaker Check: N/A Consults: none DM: No Cardiac Surgical prep: N/A SIGNATURE: HUNG Juarez [facility] CHECKED BY: DATE of SERVICE: 10/23/2013 TIME of SERVICE: 8:57 AM Mitral valve disease, 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 - s/p 10/30/2013 robotically assisted MV repair. -surgical pathology: Mitral valve, segmental resection - Myxoid degeneration. -Post-op echo: trivial MR, pk/mn gradients 6/2, trivial pericardial effusion, RVSP 50. EF 56%. -Continue ASA. BB held for junctional early postop Difficulty voiding 12/21/2012 11/03/2013 Supraspinatus tendonitis 06/28/2011 017 Acute gastritis without mention of hemorrhage 12/26/2014 Esophagitis, unspecified 05/06/2011 017 Overview: -Remote history of esophagitis. Managed with Prevacid as outpatient. No complaints. Continue PPI at discharge. 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) 04/08/2011 09/01/20 21 documented as of this encounter (statuses as of 07/05/2022) [facility]2015 History of Past illness Narrative* Problem Noted Date Resolved Date Status post cataract surgery 07/08/2015 Combined form of senile cataract of left eye 07/08/2015 Regular astigmatism of left eye 06/12/2015 11/10/2021 S/P cataract surgery - Right Eye 06/05/2015 11/10/2021 Other and combined forms of senile cataract 02/201507/08/2015 Regular astigmatism 03/31/2015 11/10/2021 Presbyopia 03/31/2015 11/10/2021 Post-op Junctional Rhyhtm with paroxysmal A-fib 11/01/2013 04/28/2017 Overview: Afib RVR postop. Early post-op Junctional rhythm. New onset/PAF 11/01 and 11/02 w/ 4 sec conversion pause. Tikosyn ordered by Dr. Garcia on 11/03. Back in afib 11/03 and 11/05. No conversion pauses when patient went in an out of Afib on 11/06. Digoxin added per Dr. Garcia on 11/07, rhythm remains Afib RVR, but rates better controlled now at 120-130's. Asymptomatic. INR 2.1 today. D/c heparin gtt. Continue coumadin, tikosyn and digoxin at discharge. Dosing per Dr. Garcia. No BB/CCB. Will f/u with Dr. Gacria in one week in OPD. ECG at f/u. Stress hyperglycemia 11/01/2013 11/03/2013 Overview: No history of DM with post-op stress hyperglycemia. Managed with Insuilin gtt per CVICU protocol & transferred to floor with dose of lantus. BG normalizing. Discontinue accucheck surveillance & SSI. Atelectasis/pleural effusion/FVO. 10/31/2013 12/26/2014 Overview: Room air. At admission weight. CXR 11/06: Persistent moderate right pleural effusion and trace left effusion. There is associated compressive atelectasis. No definite pneumothorax. Lasix PRN weight gain at discharge. Encourage Cough and deep breath, Positive expiratory pressure exercises and increased ambulation. CXR at f/u. Fluid overload 10/31/2013 10/31/2013 Overview: mild fluid overload from surgery . plan - start gentle diuresis - closely monitor fluid and electrolytes. Mechanically assisted ventilation 10/30/2013 10/31/2013 Overview: spcv / rate 12 / fio2 50% / peep 8 grade l view wte Acute pain 10/30/2013 12/26/2014 Overview: Back pain controlled with with Tylenol, Percolone and Ultram PRN. Continue at discharge. Cardiac insufficiency following cardiac surgery 10/30/2013 11/01/2013 Overview: RV dysfxn post pump requiring Epi 10/31/2013 Epi weaned off for SVO2 > 59. Started gentle diuresis. Pre-op testing 10/23/2013 11/03/2013 Overview: Images from the original note were not included. [facility] Surgeon: Jaron Simmons M.D. Informed Consent Completed: yes STS Score: 0.710 CAD: No Is intended procedure a CABG: No - is a beta dariel ordered? No - reason: not indicated H & P completed: Yes PA/LAT: Completed CT: Completed MRI: N/A LE US: Completed Cath: Yes - reviewed: Yes Echo:Completed EKG: Completed EF %: 59 PI's: N/A Carotid: N/A Mapping: N/A Dental: Pending PFT's: N/A Basename 10/22/13 0713 WBC 4.57 HB 16.3 HCT 46.3 PLT 155 INR 1.0 CREAT 0.86 UA: Normal HCG:N/A ABO/ABO Confirmed: Yes Blood ordered: No SA Swab: Yes - results: Pending Last Dose of Anticoagulation: none Op Note: N/A Pacemaker Check: N/A Consults: none DM: No Cardiac Surgical prep: N/A SIGNATURE: HUNG Juarez [employer] CHECKED BY: DATE of SERVICE: 10/23/2013 TIME of SERVICE: 8:57 AM Mitral valve disease, 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 - s/p 10/30/2013 robotically assisted MV repair. -surgical pathology: Mitral valve, segmental resection - Myxoid degeneration. -Post-op echo: trivial MR, pk/mn gradients 04/29, trivial pericardial effusion, RVSP 50. EF 56%. -Continue ASA. BB held for junctional early postop Difficulty voiding 12/21/2012 11/03/2013 Supraspinatus tendonitis 06/28/2011 017 Acute gastritis without mention of hemorrhage 12/26/2014 Esophagitis, unspecified 05/06/2011 017 Overview: -Remote history of esophagitis. Managed with Prevacid as outpatient. No complaints. Continue PPI at discharge. 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) 04/08/2011 09/01/20 21 documented as of this encounter (statuses as of 07/07/2022) [facility]2015 History of Past illness Narrative* Problem Noted Date Resolved Date Status post cataract surgery 07/08/2015 Combined form of senile cataract of left eye 07/08/2015 Regular astigmatism of left eye 06/12/2015 11/10/2021 S/P cataract surgery - Right Eye 06/05/2015 11/10/2021 Other and combined forms of senile cataract 02/201507/08/2015 Regular astigmatism 03/31/2015 11/10/2021 Presbyopia 03/31/2015 11/10/2021 Post-op Junctional Rhyhtm with paroxysmal A-fib 11/01/2013 04/28/2017 Overview: Afib RVR postop. Early post-op Junctional rhythm. New onset/PAF 11/01 and 11/02 w/ 4 sec conversion pause. Tikosyn ordered by Dr. Garcia on 11/03. Back in afib 11/03 and 11/05. No conversion pauses when patient went in an out of Afib on 11/06. Digoxin added per Dr. Garcia on 11/07, rhythm remains Afib RVR, but rates better controlled now at 120-130's. Asymptomatic. INR 2.1 today. D/c heparin gtt. Continue coumadin, tikosyn and digoxin at discharge. Dosing per Dr. Garcia. No BB/CCB. Will f/u with Dr. Garcia in one week in OPD. ECG at f/u. Stress hyperglycemia 11/01/2013 11/03/2013 Overview: No history of DM with post-op stress hyperglycemia. Managed with Insuilin gtt per CVICU protocol & transferred to floor with dose of lantus. BG normalizing. Discontinue accucheck surveillance & SSI. Atelectasis/pleural effusion/FVO. 10/31/2013 12/26/2014 Overview: Room air. At admission weight. CXR 11/06: Persistent moderate right pleural effusion and trace left effusion. There is associated compressive atelectasis. No definite pneumothorax. Lasix PRN weight gain at discharge. Encourage Cough and deep breath, Positive expiratory pressure exercises and increased ambulation. CXR at f/u. Fluid overload 10/31/2013 10/31/2013 Overview: mild fluid overload from surgery . plan - start gentle diuresis - closely monitor fluid and electrolytes. Mechanically assisted ventilation 10/30/2013 10/31/2013 Overview: spcv / rate 12 / fio2 50% / peep 8 grade l view wte Acute pain 10/30/2013 12/26/2014 Overview: Back pain controlled with with Tylenol, Percolone and Ultram PRN. Continue at discharge. Cardiac insufficiency following cardiac surgery 10/30/2013 11/01/2013 Overview: RV dysfxn post pump requiring Epi 10/31/2013 Epi weaned off for SVO2 > 59. Started gentle diuresis. Pre-op testing 10/23/2013 11/03/2013 Overview: Images from the original note were not included. [facility] Surgeon: Jaron Simmons M.D. Informed Consent Completed: yes STS Score: 0.710 CAD: No Is intended procedure a CABG: No - is a beta dariel ordered? No - reason: not indicated H & P completed: Yes PA/LAT: Completed CT: Completed MRI: N/A LE US: Completed Cath: Yes - reviewed: Yes Echo:Completed EKG: Completed EF %: 59 PI's: N/A Carotid: N/A Mapping: N/A Dental: Pending PFT's: N/A Basename 10/22/13 0713 WBC 4.57 HB 16.3 HCT 46.3 PLT 155 INR 1.0 CREAT 0.86 UA: Normal HCG:N/A ABO/ABO Confirmed: Yes Blood ordered: No SA Swab: Yes - results: Pending Last Dose of Anticoagulation: none Op Note: N/A Pacemaker Check: N/A Consults: none DM: No Cardiac Surgical prep: N/A SIGNATURE: HUNG Juarez [employer] CHECKED BY: DATE of SERVICE: 10/23/2013 TIME of SERVICE: 8:57 AM Mitral valve disease, 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 - s/p 10/30/2013 robotically assisted MV repair. -surgical pathology: Mitral valve, segmental resection - Myxoid degeneration. -Post-op echo: trivial MR, pk/mn gradients 6/2, trivial pericardial effusion, RVSP 50. EF 56%. -Continue ASA. BB held for junctional early postop Difficulty voiding 12/21/2012 11/03/2013 Supraspinatus tendonitis 06/28/2011 017 Acute gastritis without mention of hemorrhage 12/26/2014 Esophagitis, unspecified 05/06/2011 017 Overview: -Remote history of esophagitis. Managed with Prevacid as outpatient. No complaints. Continue PPI at discharge. 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) 04/08/2011 09/01/20 21 documented as of this encounter (statuses as of 09/01/2022) [facility]2015 History of Past illness Narrative* Problem Noted Date Resolved Date Status post cataract surgery 07/08/2015 Combined form of senile cataract of left eye 07/08/2015 Regular astigmatism of left eye 06/12/2015 11/10/2021 S/P cataract surgery - Right Eye 06/05/2015 11/10/2021 Other and combined forms of senile cataract 02/201507/08/2015 Regular astigmatism 03/31/2015 11/10/2021 Presbyopia 03/31/2015 11/10/2021 Post-op Junctional Rhyhtm with paroxysmal A-fib 11/01/2013 04/28/2017 Overview: Afib RVR postop. Early post-op Junctional rhythm. New onset/PAF 11/01 and 11/02 w/ 4 sec conversion pause. Tikosyn ordered by Dr. Garcia on 11/03. Back in afib 11/03 and 11/05. No conversion pauses when patient went in an out of Afib on 11/06. Digoxin added per Dr. Garcia on 11/07, rhythm remains Afib RVR, but rates better controlled now at 120-130's. Asymptomatic. INR 2.1 today. D/c heparin gtt. Continue coumadin, tikosyn and digoxin at discharge. Dosing per Dr. Garcia. No BB/CCB. Will f/u with Dr. Garcia in one week in OPD. ECG at f/u. Stress hyperglycemia 11/01/2013 11/03/2013 Overview: No history of DM with post-op stress hyperglycemia. Managed with Insuilin gtt per CVICU protocol & transferred to floor with dose of lantus. BG normalizing. Discontinue accucheck surveillance & SSI. Atelectasis/pleural effusion/FVO. 10/31/2013 12/26/2014 Overview: Room air. At admission weight. CXR 11/06: Persistent moderate right pleural effusion and trace left effusion. There is associated compressive atelectasis. No definite pneumothorax. Lasix PRN weight gain at discharge. Encourage Cough and deep breath, Positive expiratory pressure exercises and increased ambulation. CXR at f/u. Fluid overload 10/31/2013 10/31/2013 Overview: mild fluid overload from surgery . plan - start gentle diuresis - closely monitor fluid and electrolytes. Mechanically assisted ventilation 10/30/2013 10/31/2013 Overview: spcv / rate 12 / fio2 50% / peep 8 grade l view wte Acute pain 10/30/2013 12/26/2014 Overview: Back pain controlled with with Tylenol, Percolone and Ultram PRN. Continue at discharge. Cardiac insufficiency following cardiac surgery 10/30/2013 11/01/2013 Overview: RV dysfxn post pump requiring Epi 10/31/2013 Epi weaned off for SVO2 > 59. Started gentle diuresis. Pre-op testing 10/23/2013 11/03/2013 Overview: Images from the original note were not included. [facility] Surgeon: Jaron Simmons M.D. Informed Consent Completed: yes STS Score: 0.710 CAD: No Is intended procedure a CABG: No - is a beta dariel ordered? No - reason: not indicated H & P completed: Yes PA/LAT: Completed CT: Completed MRI: N/A LE US: Completed Cath: Yes - reviewed: Yes Echo:Completed EKG: Completed EF %: 59 PI's: N/A Carotid: N/A Mapping: N/A Dental: Pending PFT's: N/A Basename 10/22/13 0713 WBC 4.57 HB 16.3 HCT 46.3 PLT 155 INR 1.0 CREAT 0.86 UA: Normal HCG:N/A ABO/ABO Confirmed: Yes Blood ordered: No SA Swab: Yes - results: Pending Last Dose of Anticoagulation: none Op Note: N/A Pacemaker Check: N/A Consults: none DM: No Cardiac Surgical prep: N/A SIGNATURE: HUNG Juarez [employer] CHECKED BY: DATE of SERVICE: 10/23/2013 TIME of SERVICE: 8:57 AM Mitral valve disease, 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 - s/p 10/30/2013 robotically assisted MV repair. -surgical pathology: Mitral valve, segmental resection - Myxoid degeneration. -Post-op echo: trivial MR, pk/mn gradients /, trivial pericardial effusion, RVSP 50. EF 56%. -Continue ASA. BB held for junctional early postop Difficulty voiding 12/21/2012 11/03/2013 Supraspinatus tendonitis 06/28/2011 017 Acute gastritis without mention of hemorrhage 12/26/2014 Esophagitis, unspecified 05/06/2011 017 Overview: -Remote history of esophagitis. Managed with Prevacid as outpatient. No complaints. Continue PPI at discharge. 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) 04/08/2011 09/01/20 21 documented as of this encounter (statuses as of 09/09/2022) [facility]2015 History of Past illness Narrative* Problem Noted Date Resolved Date Status post cataract surgery 07/08/2015 Combined form of senile cataract of left eye 07/08/2015 Regular astigmatism of left eye 06/12/2015 11/10/2021 S/P cataract surgery - Right Eye 06/05/2015 11/10/2021 Other and combined forms of senile cataract /02/201507/08/2015 Regular astigmatism 03/31/2015 11/10/2021 Presbyopia 03/31/2015 11/10/2021 Post-op Junctional Rhyhtm with paroxysmal A-fib 11/01/2013 04/28/2017 Overview: Afib RVR postop. Early post-op Junctional rhythm. New onset/PAF 11/01 and 11/02 w/ 4 sec conversion pause. Tikosyn ordered by Dr. Garcia on 11/03. Back in afib 11/03 and 11/05. No conversion pauses when patient went in an out of Afib on 11/06. Digoxin added per Dr. Garcia on 11/07, rhythm remains Afib RVR, but rates better controlled now at 120-130's. Asymptomatic. INR 2.1 today. D/c heparin gtt. Continue coumadin, tikosyn and digoxin at discharge. Dosing per Dr. Garcia. No BB/CCB. Will f/u with Dr. Garcia in one week in OPD. ECG at f/u. Stress hyperglycemia 11/01/2013 11/03/2013 Overview: No history of DM with post-op stress hyperglycemia. Managed with Insuilin gtt per CVICU protocol & transferred to floor with dose of lantus. BG normalizing. Discontinue accucheck surveillance & SSI. Atelectasis/pleural effusion/FVO. 10/31/2013 12/26/2014 Overview: Room air. At admission weight. CXR 11/06: Persistent moderate right pleural effusion and trace left effusion. There is associated compressive atelectasis. No definite pneumothorax. Lasix PRN weight gain at discharge. Encourage Cough and deep breath, Positive expiratory pressure exercises and increased ambulation. CXR at f/u. Fluid overload 10/31/2013 10/31/2013 Overview: mild fluid overload from surgery . plan - start gentle diuresis - closely monitor fluid and electrolytes. Mechanically assisted ventilation 10/30/2013 10/31/2013 Overview: spcv / rate 12 / fio2 50% / peep 8 grade l view wte Acute pain 10/30/2013 12/26/2014 Overview: Back pain controlled with with Tylenol, Percolone and Ultram PRN. Continue at discharge. Cardiac insufficiency following cardiac surgery 10/30/2013 11/01/2013 Overview: RV dysfxn post pump requiring Epi 10/31/2013 Epi weaned off for SVO2 > 59. Started gentle diuresis. Pre-op testing 10/23/2013 11/03/2013 Overview: Images from the original note were not included. [facility] Surgeon: Jaron Simmons M.D. Informed Consent Completed: yes STS Score: 0.710 CAD: No Is intended procedure a CABG: No - is a beta dariel ordered? No - reason: not indicated H & P completed: Yes PA/LAT: Completed CT: Completed MRI: N/A LE US: Completed Cath: Yes - reviewed: Yes Echo:Completed EKG: Completed EF %: 59 PI's: N/A Carotid: N/A Mapping: N/A Dental: Pending PFT's: N/A Basename 10/22/13 0713 WBC 4.57 HB 16.3 HCT 46.3 PLT 155 INR 1.0 CREAT 0.86 UA: Normal HCG:N/A ABO/ABO Confirmed: Yes Blood ordered: No SA Swab: Yes - results: Pending Last Dose of Anticoagulation: none Op Note: N/A Pacemaker Check: N/A Consults: none DM: No Cardiac Surgical prep: N/A SIGNATURE: HUNG Juarez [facility] CHECKED BY: DATE of SERVICE: 10/23/2013 TIME of SERVICE: 8:57 AM Mitral valve disease, 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 - s/p 10/30/2013 robotically assisted MV repair. -surgical pathology: Mitral valve, segmental resection - Myxoid degeneration. -Post-op echo: trivial MR, pk/mn gradients 6/2, trivial pericardial effusion, RVSP 50. EF 56%. -Continue ASA. BB held for junctional early postop Difficulty voiding 12/21/2012 11/03/2013 Supraspinatus tendonitis 06/28/2011 017 Acute gastritis without mention of hemorrhage 12/26/2014 Esophagitis, unspecified 05/06/2011 017 Overview: -Remote history of esophagitis. Managed with Prevacid as outpatient. No complaints. Continue PPI at discharge. 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) 04/08/2011 09/01/20 21 documented as of this encounter (statuses as of 01/04/2023) [facility]2015 History of Past illness Narrative* Problem Noted Date Resolved Date Status post cataract surgery 07/08/2015 Combined form of senile cataract of left eye 07/08/2015 Regular astigmatism of left eye 06/12/2015 11/10/2021 S/P cataract surgery - Right Eye 06/05/2015 11/10/2021 Other and combined forms of senile cataract 02/201507/08/2015 Regular astigmatism 03/31/2015 11/10/2021 Presbyopia 03/31/2015 11/10/2021 Post-op Junctional Rhyhtm with paroxysmal A-fib 11/01/2013 04/28/2017 Overview: Afib RVR postop. Early post-op Junctional rhythm. New onset/PAF 11/01 and 11/02 w/ 4 sec conversion pause. Tikosyn ordered by Dr. Garcia on 11/03. Back in afib 11/03 and 11/05. No conversion pauses when patient went in an out of Afib on 11/06. Digoxin added per Dr. Garcia on 11/07, rhythm remains Afib RVR, but rates better controlled now at 120-130's. Asymptomatic. INR 2.1 today. D/c heparin gtt. Continue coumadin, tikosyn and digoxin at discharge. Dosing per Dr. Garcia. No BB/CCB. Will f/u with Dr. Garcia in one week in OPD. ECG at f/u. Stress hyperglycemia 11/01/2013 11/03/2013 Overview: No history of DM with post-op stress hyperglycemia. Managed with Insuilin gtt per CVICU protocol & transferred to floor with dose of lantus. BG normalizing. Discontinue accucheck surveillance & SSI. Atelectasis/pleural effusion/FVO. 10/31/2013 12/26/2014 Overview: Room air. At admission weight. CXR 11/06: Persistent moderate right pleural effusion and trace left effusion. There is associated compressive atelectasis. No definite pneumothorax. Lasix PRN weight gain at discharge. Encourage Cough and deep breath, Positive expiratory pressure exercises and increased ambulation. CXR at f/u. Fluid overload 10/31/2013 10/31/2013 Overview: mild fluid overload from surgery . plan - start gentle diuresis - closely monitor fluid and electrolytes. Mechanically assisted ventilation 10/30/2013 10/31/2013 Overview: spcv / rate 12 / fio2 50% / peep 8 grade l view wte Acute pain 10/30/2013 12/26/2014 Overview: Back pain controlled with with Tylenol, Percolone and Ultram PRN. Continue at discharge. Cardiac insufficiency following cardiac surgery 10/30/2013 11/01/2013 Overview: RV dysfxn post pump requiring Epi 10/31/2013 Epi weaned off for SVO2 > 59. Started gentle diuresis. Pre-op testing 10/23/2013 11/03/2013 Overview: Images from the original note were not included. [facility] Surgeon: Jaron Simmons M.D. Informed Consent Completed: yes STS Score: 0.710 CAD: No Is intended procedure a CABG: No - is a beta dariel ordered? No - reason: not indicated H & P completed: Yes PA/LAT: Completed CT: Completed MRI: N/A LE US: Completed Cath: Yes - reviewed: Yes Echo:Completed EKG: Completed EF %: 59 PI's: N/A Carotid: N/A Mapping: N/A Dental: Pending PFT's: N/A Basename 10/22/13 0713 WBC 4.57 HB 16.3 HCT 46.3 PLT 155 INR 1.0 CREAT 0.86 UA: Normal HCG:N/A ABO/ABO Confirmed: Yes Blood ordered: No SA Swab: Yes - results: Pending Last Dose of Anticoagulation: none Op Note: N/A Pacemaker Check: N/A Consults: none DM: No Cardiac Surgical prep: N/A SIGNATURE: HUNG Juarez [facility] [employer] CHECKED BY: DATE of SERVICE: 10/23/2013 TIME of SERVICE: 8:57 AM Mitral valve disease, 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 - s/p 10/30/2013 robotically assisted MV repair. -surgical pathology: Mitral valve, segmental resection - Myxoid degeneration. -Post-op echo: trivial MR, pk/mn gradients 6/2, trivial pericardial effusion, RVSP 50. EF 56%. -Continue ASA. BB held for junctional early postop Difficulty voiding 12/21/2012 11/03/2013 Supraspinatus tendonitis 06/28/2011 017 Acute gastritis without mention of hemorrhage 12/26/2014 Esophagitis, unspecified 05/06/2011 017 Overview: -Remote history of esophagitis. Managed with Prevacid as outpatient. No complaints. Continue PPI at discharge. 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) 04/08/2011 09/01/20 21 documented as of this encounter (statuses as of 03/02/2023) [facility]2015 History of Past illness Narrative* Problem Noted Date Resolved Date Status post cataract surgery 07/08/2015 Combined form of senile cataract of left eye 07/08/2015 Regular astigmatism of left eye 06/12/2015 11/10/2021 S/P cataract surgery - Right Eye 06/05/2015 11/10/2021 Other and combined forms of senile cataract 02/201507/08/2015 Regular astigmatism 03/31/2015 11/10/2021 Presbyopia 03/31/2015 11/10/2021 Post-op Junctional Rhyhtm with paroxysmal A-fib 11/01/2013 04/28/2017 Overview: Afib RVR postop. Early post-op Junctional rhythm. New onset/PAF 11/01 and 11/02 w/ 4 sec conversion pause. Tikosyn ordered by Dr. Garcia on 11/03. Back in afib 11/03 and 11/05. No conversion pauses when patient went in an out of Afib on 11/06. Digoxin added per Dr. Garcia on 11/07, rhythm remains Afib RVR, but rates better controlled now at 120-130's. Asymptomatic. INR 2.1 today. D/c heparin gtt. Continue coumadin, tikosyn and digoxin at discharge. Dosing per Dr. Garcia. No BB/CCB. Will f/u with Dr. Garcia in one week in OPD. ECG at f/u. Stress hyperglycemia 11/01/2013 11/03/2013 Overview: No history of DM with post-op stress hyperglycemia. Managed with Insuilin gtt per CVICU protocol & transferred to floor with dose of lantus. BG normalizing. Discontinue accucheck surveillance & SSI. Atelectasis/pleural effusion/FVO. 10/31/2013 12/26/2014 Overview: Room air. At admission weight. CXR 11/06: Persistent moderate right pleural effusion and trace left effusion. There is associated compressive atelectasis. No definite pneumothorax. Lasix PRN weight gain at discharge. Encourage Cough and deep breath, Positive expiratory pressure exercises and increased ambulation. CXR at f/u. Fluid overload 10/31/2013 10/31/2013 Overview: mild fluid overload from surgery . plan - start gentle diuresis - closely monitor fluid and electrolytes. Mechanically assisted ventilation 10/30/2013 10/31/2013 Overview: spcv / rate 12 / fio2 50% / peep 8 grade l view wte Acute pain 10/30/2013 12/26/2014 Overview: Back pain controlled with with Tylenol, Percolone and Ultram PRN. Continue at discharge. Cardiac insufficiency following cardiac surgery 10/30/2013 11/01/2013 Overview: RV dysfxn post pump requiring Epi 10/31/2013 Epi weaned off for SVO2 > 59. Started gentle diuresis. Pre-op testing 10/23/2013 11/03/2013 Overview: Images from the original note were not included. [facility] Surgeon: Jaron Simmons M.D. Informed Consent Completed: yes STS Score: 0.710 CAD: No Is intended procedure a CABG: No - is a beta dariel ordered? No - reason: not indicated H & P completed: Yes PA/LAT: Completed CT: Completed MRI: N/A LE US: Completed Cath: Yes - reviewed: Yes Echo:Completed EKG: Completed EF %: 59 PI's: N/A Carotid: N/A Mapping: N/A Dental: Pending PFT's: N/A Basename 10/22/13 0713 WBC 4.57 HB 16.3 HCT 46.3 PLT 155 INR 1.0 CREAT 0.86 UA: Normal HCG:N/A ABO/ABO Confirmed: Yes Blood ordered: No SA Swab: Yes - results: Pending Last Dose of Anticoagulation: none Op Note: N/A Pacemaker Check: N/A Consults: none DM: No Cardiac Surgical prep: N/A SIGNATURE: HUNG Juarez [facility] [employer] CHECKED BY: DATE of SERVICE: 10/23/2013 TIME of SERVICE: 8:57 AM Mitral valve disease, 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 - s/p 10/30/2013 robotically assisted MV repair. -surgical pathology: Mitral valve, segmental resection - Myxoid degeneration. -Post-op echo: trivial MR, pk/mn gradients 04/29, trivial pericardial effusion, RVSP 50. EF 56%. -Continue ASA. BB held for junctional early postop Difficulty voiding 12/21/2012 11/03/2013 Supraspinatus tendonitis 06/28/2011 017 Acute gastritis without mention of hemorrhage 12/26/2014 Esophagitis, unspecified 05/06/2011 017 Overview: -Remote history of esophagitis. Managed with Prevacid as outpatient. No complaints. Continue PPI at discharge. 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) 04/08/2011 09/01/20 21 documented as of this encounter (statuses as of 03/03/2023) [facility]2015 History of Past illness Narrative* Problem Noted Date Resolved Date Status post cataract surgery 07/08/2015 Combined form of senile cataract of left eye 07/08/2015 Regular astigmatism of left eye 06/12/2015 11/10/2021 S/P cataract surgery - Right Eye 06/05/2015 11/10/2021 Other and combined forms of senile cataract 02/201507/08/2015 Regular astigmatism 03/31/2015 11/10/2021 Presbyopia 03/31/2015 11/10/2021 Post-op Junctional Rhyhtm with paroxysmal A-fib 11/01/2013 04/28/2017 Overview: Afib RVR postop. Early post-op Junctional rhythm. New onset/PAF 11/01 and 11/02 w/ 4 sec conversion pause. Tikosyn ordered by Dr. Garcia on 11/03. Back in afib 11/03 and 11/05. No conversion pauses when patient went in an out of Afib on 11/06. Digoxin added per Dr. Garcia on 11/07, rhythm remains Afib RVR, but rates better controlled now at 120-130's. Asymptomatic. INR 2.1 today. D/c heparin gtt. Continue coumadin, tikosyn and digoxin at discharge. Dosing per Dr. Garcia. No BB/CCB. Will f/u with Dr. Garcia in one week in OPD. ECG at f/u. Stress hyperglycemia 11/01/2013 11/03/2013 Overview: No history of DM with post-op stress hyperglycemia. Managed with Insuilin gtt per CVICU protocol & transferred to floor with dose of lantus. BG normalizing. Discontinue accucheck surveillance & SSI. Atelectasis/pleural effusion/FVO. 10/31/2013 12/26/2014 Overview: Room air. At admission weight. CXR 11/06: Persistent moderate right pleural effusion and trace left effusion. There is associated compressive atelectasis. No definite pneumothorax. Lasix PRN weight gain at discharge. Encourage Cough and deep breath, Positive expiratory pressure exercises and increased ambulation. CXR at f/u. Fluid overload 10/31/2013 10/31/2013 Overview: mild fluid overload from surgery . plan - start gentle diuresis - closely monitor fluid and electrolytes. Mechanically assisted ventilation 10/30/2013 10/31/2013 Overview: spcv / rate 12 / fio2 50% / peep 8 grade l view wte Acute pain 10/30/2013 12/26/2014 Overview: Back pain controlled with with Tylenol, Percolone and Ultram PRN. Continue at discharge. Cardiac insufficiency following cardiac surgery 10/30/2013 11/01/2013 Overview: RV dysfxn post pump requiring Epi 10/31/2013 Epi weaned off for SVO2 > 59. Started gentle diuresis. Pre-op testing 10/23/2013 11/03/2013 Overview: Images from the original note were not included. [facility] Surgeon: Jaron Simmons M.D. Informed Consent Completed: yes STS Score: 0.710 CAD: No Is intended procedure a CABG: No - is a beta dariel ordered? No - reason: not indicated H & P completed: Yes PA/LAT: Completed CT: Completed MRI: N/A LE US: Completed Cath: Yes - reviewed: Yes Echo:Completed EKG: Completed EF %: 59 PI's: N/A Carotid: N/A Mapping: N/A Dental: Pending PFT's: N/A Basename 10/22/13 0713 WBC 4.57 HB 16.3 HCT 46.3 PLT 155 INR 1.0 CREAT 0.86 UA: Normal HCG:N/A ABO/ABO Confirmed: Yes Blood ordered: No SA Swab: Yes - results: Pending Last Dose of Anticoagulation: none Op Note: N/A Pacemaker Check: N/A Consults: none DM: No Cardiac Surgical prep: N/A SIGNATURE: HUNG Juarez [facility] [employer] CHECKED BY: DATE of SERVICE: 10/23/2013 TIME of SERVICE: 8:57 AM Mitral valve disease, 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 - s/p 10/30/2013 robotically assisted MV repair. -surgical pathology: Mitral valve, segmental resection - Myxoid degeneration. -Post-op echo: trivial MR, pk/mn gradients 6/2, trivial pericardial effusion, RVSP 50. EF 56%. -Continue ASA. BB held for junctional early postop Difficulty voiding 12/21/2012 11/03/2013 Supraspinatus tendonitis 06/28/2011 017 Acute gastritis without mention of hemorrhage 12/26/2014 Esophagitis, unspecified 05/06/2011 017 Overview: -Remote history of esophagitis. Managed with Prevacid as outpatient. No complaints. Continue PPI at discharge. 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) 04/08/2011 09/01/20 21 documented as of this encounter (statuses as of 04/07/2023) [facility]2015 History of Past illness Narrative* Problem Noted Date Diagnosed Date Resolved Date Status post cataract surgery 07/08/2015 11/10/2021 Combined form of senile cataract of left eye 5 07/08/2015 Regular astigmatism of left eye 06/12/2015 11/10/2021 S/P cataract surgery - Right Eye 06/05/2015 11/10/2021 Other and combined forms of senile cataract 03/31/2015 07/08/2015 Regular astigmatism 03/31/2015 11/10/20 21 Presbyopia 03/31/2015 11/10/2021 Post-op Junctional Rhyhtm wi th paroxysmal A-fib 11/01/2013 04/28/2017 Overview: Afib RVR postop. Early post-op Junctional rhythm. New onset/PAF 11/01 and 11/02 w/ 4 sec conversion pause. Tikosyn ordered by Dr. Garcia on 11/03. Back in afib 11/03 and 11/05. No conversion pauses when patient went in an out of Afib on 11/06. Digoxin added per Dr. Garcia on 11/07, rhythm remains Afib RVR, but rates better controlled now at 120-130's. Asymptomatic. INR 2.1 today. D/c heparin gtt. Continue coumadin, tikosyn and digoxin at discharge. Dosing per Dr. Garcia. No BB/CCB. Will f/u with Dr. Garcia in one week in OPD. ECG at f/u. Stress hyperglycemia 11/01/2013 013 Overview: No history of DM with post-op stress hyperglycemia. Managed with Insuilin gtt per CVICU protocol & transferred to floor with dose of lantus. BG normalizing. Discontinue accucheck surveillance & SSI. Atelectasis/pleural effusion/FVO. 10/31/2013 12/26/2014 Overview: Room air. At admission weight. CXR 11/06: Persistent moderate right pleural effusion and trace left effusion. There is associated compressive atelectasis. No definite pneumothorax. Lasix PRN weight gain at discharge. Encourage Cough and deep breath, Positive expiratory pressure exercises and increased ambulation. CXR at f/u. Fluid overload 10/31/2013 10/31/2013 Overview: mild fluid overload from surgery . plan - start gentle diuresis - closely monitor fluid and electrolytes. Mechanically assisted ventilation 10/30/2013 10/31/2013 Overview: spcv / rate 12 / fio2 50% / peep 8 grade l view wte Acute pain 10/30/2013 12/26/2014 Overview: Back pain controlled with with Tylenol, Percolone and Ultram PRN. Continue at discharge. Cardiac insufficiency follow ing cardiac surgery 10/30/2013 11/01/2013 Overview: RV dysfxn post pump requiring Epi 10/31/2013 Epi weaned off for SVO2 > 59. Started gentle diuresis. Pre-op testing 10/23/2013 11/03/2013 Overview: Images from the original note were not included. [facility] Surgeon: Jaron Simmons M.D. Informed Consent Completed: yes STS Score: 0.710 CAD: No Is intended procedure a CABG: No - is a beta dariel ordered? No - reason: not indicated H & P completed: Yes PA/LAT: Completed CT: Completed MRI: N/A LE US: Completed Cath: Yes - reviewed: Yes Echo:Completed EKG: Completed EF %: 59 PI's: N/A Carotid: N/A Mapping: N/A Dental: Pending PFT's: N/A Basename 10/22/13 0713 WBC 4.57 HB 16.3 HCT 46.3 PLT 155 INR 1.0 CREAT 0.86 UA: Normal HCG:N/A ABO/ABO Confirmed: Yes Blood ordered: No SA Swab: Yes - results: Pending Last Dose of Anticoagulation: none Op Note: N/A Pacemaker Check: N/A Consults: none DM: No Cardiac Surgical prep: N/A SIGNATURE: HUNG Juarez [facility] [employer] [employer] CHECKED BY: DATE of SERVICE: 10/23/2013 TIME of SERVICE: 8:57 AM Mitral valve disease, 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 - s/p 10/30/2013 robotically assisted MV repair. -surgical pathology: Mitral valve, segmental resection - Myxoid degeneration. -Post-op echo: trivial MR, pk/mn gradients 6/2, trivial pericardial effusion, RVSP 50. EF 56%. -Continue ASA. BB held for junctional early postop Difficulty voiding 12/21/2012 3 Supraspinatus tendonitis 06/28/201111/2016 Acute gastritis without mention of hemorrhage 05/06/20 11 12/26/2014 Esophagitis, unspecified 05/06/201111/2016 Overview: -Remote history of esophagitis. Managed with Prevacid as outpatient. No complaints. Continue PPI at discharge. 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 and other lower urinary tract symptoms (LUTS) 04/08/2011 09/01/2021 documented as of this encounter (statuses as of 07/09/2023) [facility]2015 History of Past illness Narrative* Problem Noted Date Diagnosed Date Resolved Date Status post cataract surgery 07/08/2015 11/10/2021 Combined form of senile cataract of left eye 5 07/08/2015 Regular astigmatism of left eye 06/12/2015 11/10/2021 S/P cataract surgery - Right Eye 06/05/2015 11/10/2021 Other and combined forms of senile cataract 03/31/2015 07/08/2015 Regular astigmatism 03/31/2015 11/10/20 21 Presbyopia 03/31/2015 11/10/2021 Post-op Junctional Rhyhtm wi th paroxysmal A-fib 11/01/2013 04/28/2017 Overview: Afib RVR postop. Early post-op Junctional rhythm. New onset/PAF 11/01 and 11/02 w/ 4 sec conversion pause. Tikosyn ordered by Dr. Garcia on 11/03. Back in afib 11/03 and 11/05. No conversion pauses when patient went in an out of Afib on 11/06. Digoxin added per Dr. Garcia on 11/07, rhythm remains Afib RVR, but rates better controlled now at 120-130's. Asymptomatic. INR 2.1 today. D/c heparin gtt. Continue coumadin, tikosyn and digoxin at discharge. Dosing per Dr. Garcia. No BB/CCB. Will f/u with Dr. Garcia in one week in OPD. ECG at f/u. Stress hyperglycemia 11/01/2013 013 Overview: No history of DM with post-op stress hyperglycemia. Managed with Insuilin gtt per CVICU protocol & transferred to floor with dose of lantus. BG normalizing. Discontinue accucheck surveillance & SSI. Atelectasis/pleural effusion/FVO. 10/31/2013 12/26/2014 Overview: Room air. At admission weight. CXR 11/06: Persistent moderate right pleural effusion and trace left effusion. There is associated compressive atelectasis. No definite pneumothorax. Lasix PRN weight gain at discharge. Encourage Cough and deep breath, Positive expiratory pressure exercises and increased ambulation. CXR at f/u. Fluid overload 10/31/2013 10/31/2013 Overview: mild fluid overload from surgery . plan - start gentle diuresis - closely monitor fluid and electrolytes. Mechanically assisted ventilation 10/30/2013 10/31/2013 Overview: spcv / rate 12 / fio2 50% / peep 8 grade l view wte Acute pain 10/30/2013 12/26/2014 Overview: Back pain controlled with with Tylenol, Percolone and Ultram PRN. Continue at discharge. Cardiac insufficiency follow ing cardiac surgery 10/30/2013 11/01/2013 Overview: RV dysfxn post pump requiring Epi 10/31/2013 Epi weaned off for SVO2 > 59. Started gentle diuresis. Pre-op testing 10/23/2013 11/03/2013 Overview: Images from the original note were not included. [facility] Surgeon: Jaron Simmons M.D. Informed Consent Completed: yes STS Score: 0.710 CAD: No Is intended procedure a CABG: No - is a beta dariel ordered? No - reason: not indicated H & P completed: Yes PA/LAT: Completed CT: Completed MRI: N/A LE US: Completed Cath: Yes - reviewed: Yes Echo:Completed EKG: Completed EF %: 59 PI's: N/A Carotid: N/A Mapping: N/A Dental: Pending PFT's: N/A Basename 10/22/13 0713 WBC 4.57 HB 16.3 HCT 46.3 PLT 155 INR 1.0 CREAT 0.86 UA: Normal HCG:N/A ABO/ABO Confirmed: Yes Blood ordered: No SA Swab: Yes - results: Pending Last Dose of Anticoagulation: none Op Note: N/A Pacemaker Check: N/A Consults: none DM: No Cardiac Surgical prep: N/A SIGNATURE: HUNG Juarez CHILD CARE GROUP LEADER CHECKED BY: DATE of SERVICE: 10/23/2013 TIME of SERVICE: 8:57 AM Mitral valve disease, 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 - s/p 10/30/2013 robotically assisted MV repair. -surgical pathology: Mitral valve, segmental resection - Myxoid degeneration. -Post-op echo: trivial MR, pk/mn gradients 6/2, trivial pericardial effusion, RVSP 50. EF 56%. -Continue ASA. BB held for junctional early postop Difficulty voiding 12/21/2012 3 Supraspinatus tendonitis 06/28/201111/2016 Acute gastritis without mention of hemorrhage 05/06/20 11 12/26/2014 Esophagitis, unspecified 05/06/201111/2016 Overview: -Remote history of esophagitis. Managed with Prevacid as outpatient. No complaints. Continue PPI at discharge. 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 and other lower urinary tract symptoms (LUTS) 04/08/2011 09/01/2021 documented as of this encounter (statuses as of 08/02/2023) [facility]2015 History of Past illness Narrative* Problem Noted Date Diagnosed Date Resolved Date Status post cataract surgery 07/08/2015 11/10/2021 Combined form of senile cataract of left eye 5 07/08/2015 Regular astigmatism of left eye 06/12/2015 11/10/2021 S/P cataract surgery - Right Eye 06/05/2015 11/10/2021 Other and combined forms of senile cataract 03/31/2015 07/08/2015 Regular astigmatism 03/31/2015 11/10/20 21 Presbyopia 03/31/2015 11/10/2021 Post-op Junctional Rhyhtm wi th paroxysmal A-fib 11/01/2013 04/28/2017 Overview: Afib RVR postop. Early post-op Junctional rhythm. New onset/PAF 11/01 and 11/02 w/ 4 sec conversion pause. Tikosyn ordered by Dr. Garcia on 11/03. Back in afib 11/03 and 11/05. No conversion pauses when patient went in an out of Afib on 11/06. Digoxin added per Dr. Garcia on 11/07, rhythm remains Afib RVR, but rates better controlled now at 120-130's. Asymptomatic. INR 2.1 today. D/c heparin gtt. Continue coumadin, tikosyn and digoxin at discharge. Dosing per Dr. Garcia. No BB/CCB. Will f/u with Dr. Garcia in one week in OPD. ECG at f/u. Stress hyperglycemia 11/01/2013 013 Overview: No history of DM with post-op stress hyperglycemia. Managed with Insuilin gtt per CVICU protocol & transferred to floor with dose of lantus. BG normalizing. Discontinue accucheck surveillance & SSI. Atelectasis/pleural effusion/FVO. 10/31/2013 12/26/2014 Overview: Room air. At admission weight. CXR 11/06: Persistent moderate right pleural effusion and trace left effusion. There is associated compressive atelectasis. No definite pneumothorax. Lasix PRN weight gain at discharge. Encourage Cough and deep breath, Positive expiratory pressure exercises and increased ambulation. CXR at f/u. Fluid overload 10/31/2013 10/31/2013 Overview: mild fluid overload from surgery . plan - start gentle diuresis - closely monitor fluid and electrolytes. Mechanically assisted ventilation 10/30/2013 10/31/2013 Overview: spcv / rate 12 / fio2 50% / peep 8 grade l view wte Acute pain 10/30/2013 12/26/2014 Overview: Back pain controlled with with Tylenol, Percolone and Ultram PRN. Continue at discharge. Cardiac insufficiency follow ing cardiac surgery 10/30/2013 11/01/2013 Overview: RV dysfxn post pump requiring Epi 10/31/2013 Epi weaned off for SVO2 > 59. Started gentle diuresis. Pre-op testing 10/23/2013 11/03/2013 Overview: Images from the original note were not included. [facility] Surgeon: Jaron Simmons M.D. Informed Consent Completed: yes STS Score: 0.710 CAD: No Is intended procedure a CABG: No - is a beta dariel ordered? No - reason: not indicated H & P completed: Yes PA/LAT: Completed CT: Completed MRI: N/A LE US: Completed Cath: Yes - reviewed: Yes Echo:Completed EKG: Completed EF %: 59 PI's: N/A Carotid: N/A Mapping: N/A Dental: Pending PFT's: N/A Basename 10/22/13 0713 WBC 4.57 HB 16.3 HCT 46.3 PLT 155 INR 1.0 CREAT 0.86 UA: Normal HCG:N/A ABO/ABO Confirmed: Yes Blood ordered: No SA Swab: Yes - results: Pending Last Dose of Anticoagulation: none Op Note: N/A Pacemaker Check: N/A Consults: none DM: No Cardiac Surgical prep: N/A SIGNATURE: HUNG Juarez CNP CHECKED BY: DATE of SERVICE: 10/23/2013 TIME of SERVICE: 8:57 AM Mitral valve disease, 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 - s/p 10/30/2013 robotically assisted MV repair. -surgical pathology: Mitral valve, segmental resection - Myxoid degeneration. -Post-op echo: trivial MR, pk/mn gradients 04/29, trivial pericardial effusion, RVSP 50. EF 56%. -Continue ASA. BB held for junctional early postop Difficulty voiding 12/21/2012 3 Nocturia 12/21/2012 09/07/2023 Supraspinatus tendonitis 06/28/201111/2016 Acute gastritis without mention of hemorrhage 05/06/20 11 12/26/2014 Esophagitis, unspecified 05/06/201111/2016 Overview: -Remote history of esophagitis. Managed with Prevacid as outpatient. No complaints. Continue PPI at discharge. 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 and other lower urinary tract symptoms (LUTS) 04/08/2011 09/01/2021 documented as of this encounter (statuses as of 09/07/2023) [facility]2015 History of Past illness Narrative* Problem Noted Date Diagnosed Date Resolved Date Status post cataract surgery 07/08/2015 11/10/2021 Combined form of senile cataract of left eye 5 07/08/2015 Regular astigmatism of left eye 06/12/2015 11/10/2021 S/P cataract surgery - Right Eye 06/05/2015 11/10/2021 Other and combined forms of senile cataract 03/31/2015 07/08/2015 Regular astigmatism 03/31/2015 11/10/20 21 Presbyopia 03/31/2015 11/10/2021 Post-op Junctional Rhyhtm wi th paroxysmal A-fib 11/01/2013 04/28/2017 Overview: Afib RVR postop. Early post-op Junctional rhythm. New onset/PAF 11/01 and 11/02 w/ 4 sec conversion pause. Tikosyn ordered by Dr. Garcia on 11/03. Back in afib 11/03 and 11/05. No conversion pauses when patient went in an out of Afib on 11/06. Digoxin added per Dr. Garcia on 11/07, rhythm remains Afib RVR, but rates better controlled now at 120-130's. Asymptomatic. INR 2.1 today. D/c heparin gtt. Continue coumadin, tikosyn and digoxin at discharge. Dosing per Dr. Garcia. No BB/CCB. Will f/u with Dr. Garcia in one week in OPD. ECG at f/u. Stress hyperglycemia 11/01/2013 013 Overview: No history of DM with post-op stress hyperglycemia. Managed with Insuilin gtt per CVICU protocol & transferred to floor with dose of lantus. BG normalizing. Discontinue accucheck surveillance & SSI. Atelectasis/pleural effusion/FVO. 10/31/2013 12/26/2014 Overview: Room air. At admission weight. CXR 11/06: Persistent moderate right pleural effusion and trace left effusion. There is associated compressive atelectasis. No definite pneumothorax. Lasix PRN weight gain at discharge. Encourage Cough and deep breath, Positive expiratory pressure exercises and increased ambulation. CXR at f/u. Fluid overload 10/31/2013 10/31/2013 Overview: mild fluid overload from surgery . plan - start gentle diuresis - closely monitor fluid and electrolytes. Mechanically assisted ventilation 10/30/2013 10/31/2013 Overview: spcv / rate 12 / fio2 50% / peep 8 grade l view wte Acute pain 10/30/2013 12/26/2014 Overview: Back pain controlled with with Tylenol, Percolone and Ultram PRN. Continue at discharge. Cardiac insufficiency follow ing cardiac surgery 10/30/2013 11/01/2013 Overview: RV dysfxn post pump requiring Epi 10/31/2013 Epi weaned off for SVO2 > 59. Started gentle diuresis. Pre-op testing 10/23/2013 11/03/2013 Overview: Images from the original note were not included. [facility] Surgeon: Jaron Simmons M.D. Informed Consent Completed: yes STS Score: 0.710 CAD: No Is intended procedure a CABG: No - is a beta dariel ordered? No - reason: not indicated H & P completed: Yes PA/LAT: Completed CT: Completed MRI: N/A LE US: Completed Cath: Yes - reviewed: Yes Echo:Completed EKG: Completed EF %: 59 PI's: N/A Carotid: N/A Mapping: N/A Dental: Pending PFT's: N/A Basename 10/22/13 0713 WBC 4.57 HB 16.3 HCT 46.3 PLT 155 INR 1.0 CREAT 0.86 UA: Normal HCG:N/A ABO/ABO Confirmed: Yes Blood ordered: No SA Swab: Yes - results: Pending Last Dose of Anticoagulation: none Op Note: N/A Pacemaker Check: N/A Consults: none DM: No Cardiac Surgical prep: N/A SIGNATURE: HUNG Juarez CHILD CARE GROUP LEADER CHECKED BY: DATE of SERVICE: 10/23/2013 TIME of SERVICE: 8:57 AM Mitral valve disease, 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 - s/p 10/30/2013 robotically assisted MV repair. -surgical pathology: Mitral valve, segmental resection - Myxoid degeneration. -Post-op echo: trivial MR, pk/mn gradients 6/2, trivial pericardial effusion, RVSP 50. EF 56%. -Continue ASA. BB held for junctional early postop Difficulty voiding 12/21/2012 3 Nocturia 12/21/2012 09/07/2023 Supraspinatus tendonitis 06/28/201111/2016 Acute gastritis without mention of hemorrhage 05/06/20 11 12/26/2014 Esophagitis, unspecified 05/06/201111/2016 Overview: -Remote history of esophagitis. Managed with Prevacid as outpatient. No complaints. Continue PPI at discharge. 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 and other lower urinary tract symptoms (LUTS) 04/08/2011 09/01/2021 documented as of this encounter (statuses as of 03/13/2024) [facility]2015 History of Past illness Narrative* Problem Noted Date Diagnosed Date Resolved Date Status post cataract surgery 07/08/2015 11/10/2021 Combined form of senile cataract of left eye 5 07/08/2015 Regular astigmatism of left eye 06/12/2015 11/10/2021 S/P cataract surgery - Right Eye 06/05/2015 11/10/2021 Other and combined forms of senile cataract 03/31/2015 07/08/2015 Regular astigmatism 03/31/2015 11/10/20 21 Presbyopia 03/31/2015 11/10/2021 Post-op Junctional Rhyhtm wi th paroxysmal A-fib 11/01/2013 04/28/2017 Overview: Afib RVR postop. Early post-op Junctional rhythm. New onset/PAF 11/01 and 11/02 w/ 4 sec conversion pause. Tikosyn ordered by Dr. Garcia on 11/03. Back in afib 11/03 and 11/05. No conversion pauses when patient went in an out of Afib on 11/06. Digoxin added per Dr. Garcia on 11/07, rhythm remains Afib RVR, but rates better controlled now at 120-130's. Asymptomatic. INR 2.1 today. D/c heparin gtt. Continue coumadin, tikosyn and digoxin at discharge. Dosing per Dr. Garcia. No BB/CCB. Will f/u with Dr. Garcia in one week in OPD. ECG at f/u. Stress hyperglycemia 11/01/2013 013 Overview: No history of DM with post-op stress hyperglycemia. Managed with Insuilin gtt per CVICU protocol & transferred to floor with dose of lantus. BG normalizing. Discontinue accucheck surveillance & SSI. Atelectasis/pleural effusion/FVO. 10/31/2013 12/26/2014 Overview: Room air. At admission weight. CXR 11/06: Persistent moderate right pleural effusion and trace left effusion. There is associated compressive atelectasis. No definite pneumothorax. Lasix PRN weight gain at discharge. Encourage Cough and deep breath, Positive expiratory pressure exercises and increased ambulation. CXR at f/u. Fluid overload 10/31/2013 10/31/2013 Overview: mild fluid overload from surgery . plan - start gentle diuresis - closely monitor fluid and electrolytes. Mechanically assisted ventilation 10/30/2013 10/31/2013 Overview: spcv / rate 12 / fio2 50% / peep 8 grade l view wte Acute pain 10/30/2013 12/26/2014 Overview: Back pain controlled with with Tylenol, Percolone and Ultram PRN. Continue at discharge. Cardiac insufficiency follow ing cardiac surgery 10/30/2013 11/01/2013 Overview: RV dysfxn post pump requiring Epi 10/31/2013 Epi weaned off for SVO2 > 59. Started gentle diuresis. Pre-op testing 10/23/2013 11/03/2013 Overview: Images from the original note were not included. [facility] Surgeon: Jaron Simmons M.D. Informed Consent Completed: yes STS Score: 0.710 CAD: No Is intended procedure a CABG: No - is a beta dariel ordered? No - reason: not indicated H & P completed: Yes PA/LAT: Completed CT: Completed MRI: N/A LE US: Completed Cath: Yes - reviewed: Yes Echo:Completed EKG: Completed EF %: 59 PI's: N/A Carotid: N/A Mapping: N/A Dental: Pending PFT's: N/A Basename 10/22/13 0713 WBC 4.57 HB 16.3 HCT 46.3 PLT 155 INR 1.0 CREAT 0.86 UA: Normal HCG:N/A ABO/ABO Confirmed: Yes Blood ordered: No SA Swab: Yes - results: Pending Last Dose of Anticoagulation: none Op Note: N/A Pacemaker Check: N/A Consults: none DM: No Cardiac Surgical prep: N/A SIGNATURE: HUNG Juarez CHILD CARE GROUP LEADER CHECKED BY: DATE of SERVICE: 10/23/2013 TIME of SERVICE: 8:57 AM Mitral valve disease, 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 - s/p 10/30/2013 robotically assisted MV repair. -surgical pathology: Mitral valve, segmental resection - Myxoid degeneration. -Post-op echo: trivial MR, pk/mn gradients 6/2, trivial pericardial effusion, RVSP 50. EF 56%. -Continue ASA. BB held for junctional early postop Difficulty voiding 12/21/2012 3 Nocturia 12/21/2012 09/07/2023 Supraspinatus tendonitis 06/28/201111/2016 Acute gastritis without mention of hemorrhage 05/06/20 11 12/26/2014 Esophagitis, unspecified 05/06/201111/2016 Overview: -Remote history of esophagitis. Managed with Prevacid as outpatient. No complaints. Continue PPI at discharge. 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 and other lower urinary tract symptoms (LUTS) 04/08/2011 09/01/2021 documented as of this encounter (statuses as of 03/16/2024) [facility] URI, acute- Primary Acute upper respiratory infections of unspecified site [facility] Diagnosis Chest pain, unspecified type- Primary S/P MVR (mitral valve repair) Other postprocedural status Bradycardia following surgery Cardiac complications Postoperative atrial fibrillation (HCC) Cardiac complications Essential hypertension, benign Mitral valve disorder Mitral valve disorders [facility] noteNo assessment information availableWOhioHealth [facility] Work Phone: Evaluation note* Diagnosis Cough- Primary Globus sensation Gastrointestinal malfunction arising from mental factors [facility]* Diagnosis Globus sensation Gastrointestinal malfunction arising from mental factors [facility]* Diagnosis Acute pain of left shoulder- Primary Essential hypertension, benign Environmental and seasonal allergies Acute pain of right knee [facility]* Diagnosis Essential hypertension, benign- Primary Encounter for immunization Need for other specified prophylactic vaccination against single bacterial disease Postoperative atrial fibrillation (HCC) Cardiac complications Gastroesophageal reflux disease, unspecified whether esophagitis present [facility]* Diagnosis Nonexudative age-related macular degeneration, bilateral, early dry stage- Primary After cataract not obscuring vision, left Pseudophakia Lens replaced by other means [facility]* Diagnosis Nonexudative age-related macular degeneration, bilateral, early dry stage- Primary Pseudophakia Lens replaced by other means After cataract not obscuring vision, left Regular astigmatism, bilateral Presbyopia [facility]* Diagnosis Essential hypertension, benign- Primary PND (post-nasal drip) Postnasal drip Acute pain of right knee Vasomotor rhinitis Allergic rhinitis, cause unspecified Gastroesophageal reflux disease, unspecified whether esophagitis present S/P MVR (mitral valve repair) Other postprocedural status [facility]* Diagnosis Vasomotor rhinitis- Primary Allergic rhinitis, cause unspecified Tinnitus, bilateral Unspecified tinnitus Gastroesophageal reflux disease, unspecified whether esophagitis present [facility]* Diagnosis Urgency of urination- Primary Nocturia Benign prostatic hyperplasia with nocturia [facility]* Diagnosis Urgency of urination- Primary Nocturia Benign prostatic hyperplasia with nocturia [facility]* Diagnosis Essential hypertension, benign- Primary Encounter for immunization Need for other specified prophylactic vaccination against single bacterial disease S/P MVR (mitral valve repair) Other postprocedural status Benign prostatic hyperplasia with nocturia Dermatitis Contact dermatitis and other eczema, due to unspecified cause [facility] Essential hypertension, benign- Primary S/P MVR (mitral valve repair) Other postprocedural status Benign prostatic hyperplasia with nocturia Urgency of urination [facility] Diagnosis Benign prostatic hyperplasia with nocturia- Primary Urgency of urination [facility] Diagnosis Essential hypertension, benign [facility] Need for influenza vaccination- Primary Need for prophylactic vaccination and inoculation against influenza [facility] Diagnosis Acute pain of right knee [facility] Diagnosis Acute pain of right knee Acute pain of left shoulder [facility] Diagnosis Globus sensation Gastrointestinal malfunction arising from mental factors Cough [facility]* Diagnosis Chest pain, unspecified type [facility]* Diagnosis Dizziness- Primary Dizziness and giddiness Lightheadedness Dizziness and giddiness [facility] Diagnosis Dizziness- Primary Dizziness and giddiness Encounter for immunization Need for other specified prophylactic vaccination against single bacterial disease Essential hypertension, benign S/P MVR (mitral valve repair) Other postprocedural status Urgency of urination [facility] Diagnosis Essential hypertension, benign- Primary Postoperative atrial fibrillation (HCC) Cardiac complications Vasomotor rhinitis Allergic rhinitis, cause unspecified Tinnitus, unspecified laterality [facility] Diagnosis Foot pain, right- Primary Pain in limb Benign prostatic hyperplasia with nocturia Essential hypertension, benign Tinnitus of both ears Unspecified tinnitus [facility] Diagnosis Foot pain, right Pain in limb [facility] Diagnosis Benign prostatic hyperplasia with nocturia- Primary Urgency of urination [facility] Diagnosis Neuroma- Primary Other benign neoplasm of connective and other soft tissue of unspecified site Foot pain, right Pain in limb [facility] Diagnosis 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- Primary Tinnitus, bilateral Unspecified tinnitus PND (post-nasal drip) Postnasal drip [facility]* Diagnosis Vasomotor rhinitis- Primary Allergic rhinitis, cause unspecified Tinnitus, unspecified laterality Tinnitus, bilateral Unspecified tinnitus Sensorineural hearing loss, asymmetrical [facility]* Diagnosis 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 [facility] Diagnosis S/P MVR (mitral valve repair)- Primary Other postprocedural status Aortic valve insufficiency, etiology of cardiac valve disease unspecified Tinnitus of right ear Unspecified tinnitus Thick nasal mucus Other diseases of nasal cavity and sinuses [facility] Diagnosis Benign prostatic hyperplasia with nocturia- Primary Urgency of urination [facility]* Diagnosis Acute cough- Primary Influenza A Influenza with other respiratory manifestations [facility]* Diagnosis OAB (overactive bladder)- Primary Hypertonicity of bladder Benign prostatic hyperplasia with nocturia Urgency of urination Nocturia [facility] Diagnosis Polycythemia- Primary Polycythemia vera [facility]* Diagnosis Sore throat- Primary Acute pharyngitis [facility]* Diagnosis Essential hypertension, benign- Primary History of atrial fibrillation Personal history of other diseases of circulatory system Benign prostatic hyperplasia with nocturia Memory loss Gastroesophageal reflux disease, unspecified whether esophagitis present Encounter for immunization Need for other specified prophylactic vaccination against single bacterial disease [facility] Diagnosis Urgency of urination- Primary Benign prostatic hyperplasia with nocturia Nocturia OAB (overactive bladder) Hypertonicity of bladder [facility]* Diagnosis OAB (overactive bladder)- Primary Hypertonicity of bladder [facility] Diagnosis Neuroma- Primary Other benign neoplasm of connective and other soft tissue of unspecified site Plantar fasciitis of left foot Plantar fascial fibromatosis [facility]* Diagnosis Bilateral foot pain Pain in limb documented in this encounter [facility]* Diagnosis OAB (overactive bladder)- Primary Hypertonicity of bladder BPH with obstruction/lower urinary tract symptoms Hypertrophy of prostate with urinary obstruction and other lower urinary tract symptoms (LUTS) documented in this encounter [facility] note* Diagnosis Essential hypertension, benign- Primary Chronic cough Cough Dysphagia, unspecified type Gastroesophageal reflux disease, unspecified whether esophagitis present documented in this encounter [facility] note* Diagnosis Chronic cough Cough documented in this encounter [facility] note* Diagnosis Chronic cough Cough documented in this encounter [facility] note* Diagnosis Chronic cough Cough documented in this encounter [facility] note* Diagnosis Neuroma Other benign neoplasm of connective and other soft tissue of unspecified site documented in this encounter [facility] for referral (narrative)* Outpatient Procedure (Routine) - Pending Review Specialty Diagnoses / Procedures Referred By Connie t Referred To [facility] VASCULAR BESSEMER Diagnoses Chest pain, unspecified type 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 Procedures STRESS ECHO TREADMILL ECHO TTHRC R-T 2D W/WO M-MODE COMPLETE REST&ST Diego Huffman MD [address] [place] [address] [id number] [place] [address] Referral ID Status Reason Start Date Expiration Date Visits Requested Visits Authorized [id number] Pending Review Auto-Generat ed Referral 03/02/2022 03/02/2023 1 1 * Outpatient Procedure (Routine) - Closed Specialty Diagnoses / Procedures Referred By Contnilton t Referred To [facility] Diagnoses Chest pain, unspecified type Procedures ECG COMPLETE ECG ROUTINE ECG W/LEAST 12 LDS W/I&R Diego Huffman MD [address] [place] [address] [facility] [address] [address] Referral ID Status Reason Start Date Expiration Date V isits Requested Visits Authorized [id number] Closed Auto-Generate d Referral 03/02/2022 11/27/2022 1 1 [facility] for referral (narrative)* Diagnostic Procedure Only (Urgent) - Pending Review Specialty Diagnoses / Procedures Referred By Contac t Referred To Contact US IMAGING Diagnoses Globus sensation Procedures US THYROID/PARATHYROID US SOFT TISSUE HEAD & NECK REAL TIME IMGE DOCGracie Pickering APRN.CHILD CARE GROUP LEADER [address] [place] [address] [facility] Imaging Referral ID Status Reason Start Date Expiration Date Visits Requested Visits Authorized [id number] Pending Review Auto-Generat ed Referral 04/16/2022 05/16/2023 1 1 * Diagnostic Procedure Only (Urgent) - Closed Specialty Diagnoses / Procedures Referred By Contac t Referred To Contact XR IMAGING Diagnoses Globus sensation Procedures XR NECK SOFT TISSUE 2V AP/LAT RADIOLOGIC EXAMINATION NECK SOFT TISSUE RADIOLOGIC EXAM CHEST 2 VIEWS Gracie Aj APRN.CHILD CARE GROUP LEADER [address] [place] [address] X[facility] Imaging Referral ID Status Reason Start Date Expiration Date V isits Requested Visits Authorized [id number] Closed Auto-Generate d Referral 04/16/2022 11/27/2022 1 1 [facility] for referral (narrative)* Diagnostic Procedure Only (Urgent) - Closed Specialty Diagnoses / Procedures Referred By Contac t Referred To Contact US IMAGING Diagnoses Globus sensation Procedures US THYROID/PARATHYROID US SOFT TISSUE HEAD & NECK REAL TIME IMGE DOCGracie Pickering APRN.CHILD CARE GROUP LEADER [address] [place] [address] [facility] Imaging Referral ID Status Reason Start Date Expiration Date V isits Requested Visits Authorized [id number] Closed Auto-Generate d Referral 04/19/2022 11/27/2022 1 1 [facility] for referral (narrative)* Diagnostic Procedure Only (Routine) - Closed Specialty Diagnoses / Procedures Referred By Contac t Referred To Contact XR IMAGING Diagnoses Acute pain of left shoulder Procedures XR SHOULDER GENERAL 3V OR MORE AP/TRUE AP/OTHER LEFT RADEX SHOULDER COMPLETE MINIMUM 2 VIEWS Ana Resendez APRN.CHILD CARE GROUP LEADER [address] [place] [address] Xr Imaging Referral ID Status Reason Start Date Expiration Date V isits Requested Visits Authorized [id number] Closed Auto-Generate d Referral 07/07/2022 11/27/2022 1 1 * Diagnostic Procedure Only (Routine) - Closed Specialty Diagnoses / Procedures Referred By Contac t Referred To Contact XR IMAGING Diagnoses Acute pain of right knee Procedures XR KNEE GENERAL 4V AP BOTH/PA BOTH/LAT/MERC RIGHT RADIOLOGIC EXAM KNEE COMPLETE 4/MORE VIEWS Ana Resendez APRN.CHILD CARE GROUP LEADER [phone] Xr Imaging Referral ID Status Reason Start Date Expiration Date V isits Requested Visits Authorized [id number] Closed Auto-Generate d Referral 07/07/2022 11/27/2022 1 1 [facility] for referral (narrative)* Diagnostic Procedure Only (Routine) - Closed Specialty Diagnoses / Procedures Referred By Contac t Referred To Contact XR IMAGING Diagnoses Acute pain of right knee Procedures XR KNEE GENERAL 4V AP BOTH/PA BOTH/LAT/MERC RIGHT RADIOLOGIC EXAM KNEE COMPLETE 4/MORE VIEWS Diego Huffman MD [address] [place] [address] [place] [address] Referral ID Status Reason Start Date Expiration Date V isits Requested Visits Authorized [id number] Closed Auto-Generate d Referral 03/02/2023 11/27/2023 1 1 [facility] for referral (narrative)* Diagnostic Procedure Only (Routine) - Closed Specialty Diagnoses / Procedures Referred By Contac t Referred To Contact XR IMAGING Diagnoses Acute pain of left shoulder Procedures XR SHOULDER GENERAL 3V OR MORE AP/TRUE AP/OTHER LEFT RADEX SHOULDER COMPLETE MINIMUM 2 VIEWS Ana Resendez APRN.CHILD CARE GROUP LEADER [address] [place] [address] [place] [address] Referral ID Status Reason Start Date Expiration Date V isits Requested Visits Authorized [id number] Closed Auto-Generate d Referral 07/07/2022 11/27/2022 1 1 * Diagnostic Procedure Only (Routine) - Closed Specialty Diagnoses / Procedures Referred By Contac t Referred To Contact XR IMAGING Diagnoses Acute pain of right knee Procedures XR KNEE GENERAL 4V AP BOTH/PA BOTH/LAT/MERC RIGHT RADIOLOGIC EXAM KNEE COMPLETE 4/MORE VIEWS Ana Resendez APRN.CHILD CARE GROUP LEADER [address] [place] [address] [place] [address] Referral ID Status Reason Start Date Expiration Date V isits Requested Visits Authorized [id number] Closed Auto-Generate d Referral 07/07/2022 11/27/2022 1 1 [facility] for referral (narrative)* Diagnostic Procedure Only (Urgent) - Closed Specialty Diagnoses / Procedures Referred By Contac t Referred To Contact XR IMAGING Diagnoses Globus sensation Procedures XR NECK SOFT TISSUE 2V AP/LAT RADIOLOGIC EXAMINATION NECK SOFT TISSUE RADIOLOGIC EXAM CHEST 2 VIEWS Gracie Aj APRN.CHILD CARE GROUP LEADER [address] [place] [address] [place] [address] Referral ID Status Reason Start Date Expiration Date V isits Requested Visits Authorized [id number] Closed Auto-Generate d Referral 04/16/2022 11/27/2022 1 1 [facility] for visit Narrative* Diagnostic Procedure Only (Urgent) - Closed Specialty Diagnoses / Procedures Referred By Contac t Referred To Contact US IMAGING Diagnoses Globus sensation Procedures US THYROID/PARATHYROID US SOFT TISSUE HEAD & NECK REAL TIME IMGE Gracie Burton, SHARIFA.CHILD CARE GROUP LEADER [address] [place] [address] Us Imaging Referral ID Status Reason Start Date Expiration Date V isits Requested Visits Authorized [id number] Closed Auto-Generate d Referral 04/19/2022 11/27/2022 1 1 [facility] for visit Narrative* Diagnostic Procedure Only (Routine) - Closed Specialty Diagnoses / Procedures Referred By Contac t Referred To Contact XR IMAGING Diagnoses Acute pain of right knee Procedures XR KNEE GENERAL 4V AP BOTH/PA BOTH/LAT/MERC RIGHT RADIOLOGIC EXAM KNEE COMPLETE 4/MORE VIEWS Diego Huffman MD [address] [phone] [place] [address] Referral ID Status Reason Start Date Expiration Date V isits Requested Visits Authorized [id number] Closed Auto-Generate d Referral 03/02/2023 11/27/2023 1 1 [facility] for visit Narrative* Diagnostic Procedure Only (Routine) - Closed Specialty Diagnoses / Procedures Referred By Contac t Referred To Contact XR IMAGING Diagnoses Acute pain of left shoulder Procedures XR SHOULDER GENERAL 3V OR MORE AP/TRUE AP/OTHER LEFT RADEX SHOULDER COMPLETE MINIMUM 2 VIEWS Ana Resendez APRN.CHILD CARE GROUP LEADER [phone] [place] [address] Referral ID Status Reason Start Date Expiration Date V isits Requested Visits Authorized [id number] Closed Auto-Generate d Referral 07/07/2022 11/27/2022 1 1 [facility] for visit Narrative* Diagnostic Procedure Only (Urgent) - Closed Specialty Diagnoses / Procedures Referred By Contac t Referred To Contact XR IMAGING Diagnoses Globus sensation Procedures XR NECK SOFT TISSUE 2V AP/LAT RADIOLOGIC EXAMINATION NECK SOFT TISSUE RADIOLOGIC EXAM CHEST 2 VIEWS Gracie Aj, SHARIFA.CHILD CARE GROUP LEADER [address] [place] [address] [place] [address] Referral ID Status Reason Start Date Expiration Date V isits Requested Visits Authorized [id number] Closed Auto-Generate d Referral 04/16/2022 11/27/2022 1 1 [facility] for visit Narrative* Diagnostic Procedure Only (Routine) - Closed Specialty Diagnoses / Procedures Referred By Contac t Referred To Contact XR IMAGING Diagnoses Foot pain, right Procedures XR FOOT GENERAL 3V AP/LAT/OBL RIGHT RADEX FOOT COMPLETE MINIMUM 3 VIEWS Diego Huffman MD [address] [place] [address] [place] [address] Referral ID Status Reason Start Date Expiration Date V isits Requested Visits Authorized [id number] Closed Auto-Generate d Referral 09/26/2024 10/26/2025 1 1 [facility] for visit Narrative* Diagnostic Procedure Only (Routine) - Closed Specialty Diagnoses / Procedures Referred By Contac t Referred To Contact XR IMAGING Diagnoses Bilateral foot pain Procedures XR FOOT GENERAL 3V AP/LAT/OBL BILATERAL RADEX FOOT COMPLETE MINIMUM 3 VIEWS Rosa Elena Cohen [address] [place] [address] Phone: tel: fax: [place] [address] Referral ID Status Reason Start Date Expiration Date V isits Requested Visits Authorized [id number] Closed Auto-Generat ed Referral Patient Cleared - Admin/Chairm an/Director advise to proceed or did not respond 04/10/2025 11/27/2025 1 1 [facility] for visit Narrative* Diagnostic Procedure Only (Routine) - Closed Specialty Diagnoses / Procedures Referred By Contac t Referred To Contact US IMAGING Diagnoses Neuroma Procedures US FOOT RIGHT US COMPL JOINT R-T W/IMAGE DOCUMENTATION US LMTD JOINT/OTH NONVASC XTR STRUX R-T W/IMG Rosa Elena Cohen [address] [place] [address] Phone: tel: fax: [place] [address] Referral ID Status Reason Start Date Expiration Date V isits Requested Visits Authorized [id number] Closed Auto-Generate d Referral 05/10/2025 11/27/2025 1 1 [facility] Advance Directives No Advanced Directives Records FoundDocuments on File Type Date Recorded Patient Ciso Expl anation Advance Directive(s) 08/25/2020 12:19 PM Advance Directive(s) 02/13/2020 9:50 AM Advance Directive(s) 02/05/2020 8:17 AM Documents on File Type Date Recorded Patient Ciso Expl anation Advance Directive(s) 03/02/2022 5:54 PM Advance Directive(s) 08/25/2020 12:19 PM Advance Directive(s) 02/13/2020 9:50 AM Advance Directive(s) 02/05/2020 8:17 AM Documents on File Type Date Recorded Patient Ciso Expl anation Advance Directive(s) 03/02/2022 5:54 PM Advance Directive(s) 08/25/2020 12:19 PM Advance Directive(s) 02/13/2020 9:50 AM Advance Directive(s) 02/05/2020 8:17 AM Summary Purpose Family History No Family History Records FoundNo Family History Records FoundNo Family History Records Found Medications Administered Section Active Administered Medications - up to 3 most recent administrations Medication Order MAR Action Action Date Dose Rate Site PHENYLephrine 2.5 % 1 Drop (AK-DILATE, FILOMENA-SYNEPHRINE) 1 Drop, BOTH EYES, DIRECTED, Starting on Emma 09/09/22 at 1100, Until Emma 09/09/22 at 2259, Administer for dilation PROTECT FROM LIGHT Given 09/09/2022 11:04 AM EDT 1 Drop proparacaine 0.5 % 1 Drop (ALCAINE) 1 Drop, BOTH EYES, DIRECTED, Starting on Emma 09/09/22 at 1100, Until Emma 09/09/22 at 2259, Administer for pneumo tonometry, tonopen tonometry, or pachymetry. In the event of a proparacaine shortage, administer tetracaine 0.5% ophthalmic drops 1 drop in the left eye as directed for pneumo tonometry, tonopen tonometry, or pachymetry Given 09/09/2022 11:04 AM EDT 1 Drop tropicamide 1 % 1 Drop (MYDRIACYL) 1 Drop, BOTH EYES, DIRECTED, Starting on Emma 09/09/22 at 1100, Until Emma 09/09/22 at 2259, Administer for dilation Given 09/09/2022 11:04 AM EDT 1 Drop Reason for Referral Specialty Diagnoses / Procedures Referred By Contac t Referred To Contact Ent - Otolaryngology Diagnoses PND (post-nasal drip) Vasomotor rhinitis Procedures CONSULT TO ENT OFFICE/OUTPATIENT [facility] 60-[place] [address] [place] [address] Referral ID Status Reason Start Date Expiration Date Visits Requested Visits Authorized [id number] Pending Review PCP Requested Referral 03/02/2023 03/01/2024 1 1 Specialty Diagnoses / Procedures Referred By Contac t Referred To Contact XR IMAGING Diagnoses Acute pain of right knee Procedures XR KNEE GENERAL 4V AP BOTH/PA BOTH/LAT/MERC RIGHT RADIOLOGIC EXAM KNEE COMPLETE 4/MORE VIEWS Diego Huffman MD [address] [place] [address] Xr Imaging Referral ID Status Reason Start Date Expiration Date V isits Requested Visits Authorized [id number] Closed Auto-Generate d Referral 03/02/2023 11/27/2023 1 1 Specialty Diagnoses / Procedures Referred By Contac t Referred To Contact Diagnoses Tinnitus, bilateral Procedures HEARING TEST/AUDIOGRAM COMPRE AUDIOMETRY THRESHOLD EVAL Smith Alarcon MD [address] [place] [address] [facility] [address] [place] [address] Referral ID Status Reason Start Date Expiration Date Visits Requested Visits Authorized [id number] Pending Review Auto-Generat ed Referral 04/06/2023 07/05/2023 1 1 Specialty Diagnoses / Procedures Referred By Contac t Referred To Contact Urology Diagnoses Urgency of urination Nocturia Benign prostatic hyperplasia with nocturia Procedures CONSULT TO UROLOGY OFFICE/OUTPATIENT [facility] 60-74 MINUTES Diego Huffman MD [address] [place] [address] Referral ID Status Reason Start Date Expiration Date Visits Requested Visits Authorized [id number] Pending Review PCP Requested Referral 07/08/2023 07/07/2024 1 1 Specialty Diagnoses / Procedures Referred By Contac t Referred To Contact Cardiology Diagnoses S/P MVR (mitral valve repair) Procedures CONSULT TO CARDIOLOGY OFFICE/OUTPATIENT [facility] 60-74 MINUTES Diego Huffman MD [address] [place] [address] Referral ID Status Reason Start Date Expiration Date Visits Requested Visits Authorized [id number] Pending Review PCP Requested Referral 09/06/2024 1 1 Specialty Diagnoses / Procedures Referred By Contac t Referred To Contact Urology Diagnoses Benign prostatic hyperplasia with nocturia Urgency of urination Procedures CONSULT TO UROLOGY OFFICE/OUTPATIENT [facility] 60 MINUTES Diego Huffman MD [address] [place] [address] Referral ID Status Reason Start Date Expiration Date Visits Requested Visits Authorized [id number] Authorized PCP Requested Referral 03/12/2024 03/12/2025 1 1 Specialty Diagnoses / Procedures Referred By Contac t Referred To Contact [facility] Diagnoses Benign prostatic hyperplasia with nocturia Urgency of urination Procedures CONSULT TO PHYSICAL THERAPY PHYSICAL THERAPY EVALUATION HIGH COMPLEX 45 MINS Cornelius Dasilva APRN.CHILD CARE GROUP LEADER, [place]NA [address] [place] [address] [facility] [address] [place] [address] Referral ID Status Reason Start Date Expiration Date Visits Requested Visits Authorized [id number] Pending Review Auto-Generat ed Referral 04/02/2024 04/02/2025 1 1 Specialty Diagnoses / Procedures Referred By Contac t Referred To Contact Urology Diagnoses Urgency of urination Procedures CONSULT TO UROLOGY OFFICE/OUTPATIENT [facility] 60 MINUTES Ana Resendez APRN.CHILD CARE GROUP LEADER [address] [place] [address] Referral ID Status Reason Start Date Expiration Date Visits Requested Visits Authorized [id number] Authorized PCP Requested Referral 08/29/2024 08/29/2025 1 1 Specialty Diagnoses / Procedures Referred By Contac t Referred To Contact Ent - Otolaryngology Diagnoses Vasomotor rhinitis Tinnitus, unspecified laterality Procedures CONSULT TO ENT OFFICE/OUTPATIENT [facility] 60 MINUTES Diego Huffman MD [address] [place] [address] Referral ID Status Reason Start Date Expiration Date Visits Requested Visits Authorized [id number] Authorized PCP Requested Referral 4 09/14/2025 1 1 Specialty Diagnoses / Procedures Referred By Contac t Referred To Contact Podiatry Diagnoses Foot pain, right Procedures CONSULT TO PODIATRY OFFICE/OUTPATIENT [facility] MDM 60 MINUTES Diego Huffman MD [address] [place] [address] Referral ID Status Reason Start Date Expiration Date Visits Requested Visits Authorized [id number] Authorized PCP Requested Referral 4 09/26/2025 1 1 Specialty Diagnoses / Procedures Referred By Contac t Referred To Contact XR IMAGING Diagnoses Foot pain, right Procedures XR FOOT GENERAL 3V AP/LAT/OBL RIGHT RADEX FOOT COMPLETE MINIMUM 3 VIEWS Diego Huffman MD [address] [place] [address] Xr Imaging [facility] Referral ID Status Reason Start Date Expiration Date V isits Requested Visits Authorized [id number] Closed Auto-Generate d Referral 09/26/2024 10/26/2025 1 1 Specialty Diagnoses / Procedures Referred By Contac t Referred To Contact MR IMAGING Diagnoses 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 Procedures MRI BRAIN WO/W IVCON MRI BRAIN BRAIN STEM W/O W/CONTRAST MATERIAL Rosa Elena Ramon MD [address] [address] [place] [address] Referral ID Status Reason Start Date Expiration Date Visits Requested Visits Authorized [id number] Pending Review Auto-Generat ed Referral 12/10/2024 01/09/2026 1 1 Specialty Diagnoses / Procedures Referred By Contac t Referred To Contact Diagnoses Tinnitus, unspecified laterality Procedures HEARING TEST/AUDIOGRAM COMPRE AUDIOMETRY THRESHOLD EVAL Ani Silverman, AUD [address] [place] [address] [facility] [address] [place] [address] Referral ID Status Reason Start Date Expiration Date Visits Requested Visits Authorized [id number] New Request Auto-Generat ed Referral 12/10/2024 12/11/2025 1 1 Referral ID Status Reason Start Date Expiration Date Visits Re quested Visits Authorized [id number] Closed 12/12/2024 11/27/2025 1 1 Specialty Diagnoses / Procedures Referred By Contac t Referred To Contact Ent - Otolaryngology Diagnoses Tinnitus of right ear Thick nasal mucus Procedures CONSULT TO ENT CONSULT TO ENT OFFICE/OUTPATIENT [facility] 60 MINUTES Lynette Patel MD [address] [place] [address] Referral ID Status Reason Start Date Expiration Date Visits Requested Visits Authorized [id number] Authorized PCP Requested Referral 12/27/2024 12/27/2025 1 1 Specialty Diagnoses / Procedures Referred By Contac t Referred To Contact [facility] Diagnoses S/P MVR (mitral valve repair) Procedures ECHO ECHO TTHRC R-T 2D W/WOM-MODE COMPL SPEC&COLR D Lynette Patel MD [address] [place] [address] [facility] [address] [place] [address] Referral ID Status Reason Start Date Expiration Date Visits Requested Visits Authorized [id number] Pending Review Auto-Generat ed Referral 12/27/2024 12/27/2025 1 1 Additional Source Comments Source Comments (unrecognize d section and content) In the event this informatio n is protected by the Federal Confidentiality of Alcohol and Drug Abuse Patient Records regulations: The Federal rules restrict any use of the information to criminally investigate or prosecute any alcohol or drug abuse patient.[facility] the event this information is protected by the Federal Confidentiality of Alcohol and Drug Abuse Patient Records regulations: The Federal rules restrict any use of the information to criminally investigate or prosecute any alcohol or drug abuse patient.[facility] the event this information is protected by the Federal Confidentiality of Alcohol and Drug Abuse Patient Records regulations: The Federal rules restrict any use of the information to criminally investigate or prosecute any alcohol or drug abuse patient.[facility] the event this information is protected by the Federal Confidentiality of Alcohol and Drug Abuse Patient Records regulations: The Federal rules restrict any use of the information to criminally investigate or prosecute any alcohol or drug abuse patient.[facility] the event this information is protected by the Federal Confidentiality of Alcohol and Drug Abuse Patient Records regulations: The Federal rules restrict any use of the information to criminally investigate or prosecute any alcohol or drug abuse patient.[facility] the event this information is protected by the Federal Confidentiality of Alcohol and Drug Abuse Patient Records regulations: The Federal rules restrict any use of the information to criminally investigate or prosecute any alcohol or drug abuse patient.[facility] the event this information is protected by the Federal Confidentiality of Alcohol and Drug Abuse Patient Records regulations: The Federal rules restrict any use of the information to criminally investigate or prosecute any alcohol or drug abuse patient.[facility] the event this information is protected by the Federal Confidentiality of Alcohol and Drug Abuse Patient Records regulations: The Federal rules restrict any use of the information to criminally investigate or prosecute any alcohol or drug abuse patient.[facility] the event this information is protected by the Federal Confidentiality of Alcohol and Drug Abuse Patient Records regulations: The Federal rules restrict any use of the information to criminally investigate or prosecute any alcohol or drug abuse patient.[facility] the event this information is protected by the Federal Confidentiality of Alcohol and Drug Abuse Patient Records regulations: The Federal rules restrict any use of the information to criminally investigate or prosecute any alcohol or drug abuse patient.[facility] Hospital[facility] the event this information is protected by the Federal Confidentiality of Alcohol and Drug Abuse Patient Records regulations: The Federal rules restrict any use of the information to criminally investigate or prosecute any alcohol or drug abuse patient.[facility] Hospital[facility] the event this information is protected by the Federal Confidentiality of Alcohol and Drug Abuse Patient Records regulations: The Federal rules restrict any use of the information to criminally investigate or prosecute any alcohol or drug abuse patient.[facility] Hospital[facility] the event this information is protected by the Federal Confidentiality of Alcohol and Drug Abuse Patient Records regulations: The Federal rules restrict any use of the information to criminally investigate or prosecute any alcohol or drug abuse patient.[facility] Hospital[facility] the event this information is protected by the Federal Confidentiality of Alcohol and Drug Abuse Patient Records regulations: The Federal rules restrict any use of the information to criminally investigate or prosecute any alcohol or drug abuse patient.[facility] Hospital[facility] the event this information is protected by the Federal Confidentiality of Alcohol and Drug Abuse Patient Records regulations: The Federal rules restrict any use of the information to criminally investigate or prosecute any alcohol or drug abuse patient.[facility] HospitalIn the event this information is protected by the Federal Confidentiality of Alcohol and Drug Abuse Patient Records regulations: The Federal rules restrict any use of the information to criminally investigate or prosecute any alcohol or drug abuse patient.[facility] HospitalIn the event this information is protected by the Federal Confidentiality of Alcohol and Drug Abuse Patient Records regulations: The Federal rules restrict any use of the information to criminally investigate or prosecute any alcohol or drug abuse patient.[facility] HospitalIn the event this information is protected by the Federal Confidentiality of Alcohol and Drug Abuse Patient Records regulations: The Federal rules restrict any use of the information to criminally investigate or prosecute any alcohol or drug abuse patient.[facility] HospitalIn the event this information is protected by the Federal Confidentiality of Alcohol and Drug Abuse Patient Records regulations: The Federal rules restrict any use of the information to criminally investigate or prosecute any alcohol or drug abuse patient.[facility] HospitalIn the event this information is protected by the Federal Confidentiality of Alcohol and Drug Abuse Patient Records regulations: The Federal rules restrict any use of the information to criminally investigate or prosecute any alcohol or drug abuse patient.[facility] HospitalIn the event this information is protected by the Federal Confidentiality of Alcohol and Drug Abuse Patient Records regulations: The Federal rules restrict any use of the information to criminally investigate or prosecute any alcohol or drug abuse patient.[facility] HospitalIn the event this information is protected by the Federal Confidentiality of Alcohol and Drug Abuse Patient Records regulations: The Federal rules restrict any use of the information to criminally investigate or prosecute any alcohol or drug abuse patient.[facility] HospitalIn the event this information is protected by the Federal Confidentiality of Alcohol and Drug Abuse Patient Records regulations: The Federal rules restrict any use of the information to criminally investigate or prosecute any alcohol or drug abuse patient.[facility] HospitalIn the event this information is protected by the Federal Confidentiality of Alcohol and Drug Abuse Patient Records regulations: The Federal rules restrict any use of the information to criminally investigate or prosecute any alcohol or drug abuse patient.[facility] HospitalIn the event this information is protected by the Federal Confidentiality of Alcohol and Drug Abuse Patient Records regulations: The Federal rules restrict any use of the information to criminally investigate or prosecute any alcohol or drug abuse patient.[facility] HospitalIn the event this information is protected by the Federal Confidentiality of Alcohol and Drug Abuse Patient Records regulations: The Federal rules restrict any use of the information to criminally investigate or prosecute any alcohol or drug abuse patient.[facility] HospitalIn the event this information is protected by the Federal Confidentiality of Alcohol and Drug Abuse Patient Records regulations: The Federal rules restrict any use of the information to criminally investigate or prosecute any alcohol or drug abuse patient.[facility] HospitalIn the event this information is protected by the Federal Confidentiality of Alcohol and Drug Abuse Patient Records regulations: The Federal rules restrict any use of the information to criminally investigate or prosecute any alcohol or drug abuse patient.[facility] HospitalIn the event this information is protected by the Federal Confidentiality of Alcohol and Drug Abuse Patient Records regulations: The Federal rules restrict any use of the information to criminally investigate or prosecute any alcohol or drug abuse patient.[facility] HospitalIn the event this information is protected by the Federal Confidentiality of Alcohol and Drug Abuse Patient Records regulations: The Federal rules restrict any use of the information to criminally investigate or prosecute any alcohol or drug abuse patient.[facility] HospitalIn the event this information is protected by the Federal Confidentiality of Alcohol and Drug Abuse Patient Records regulations: The Federal rules restrict any use of the information to criminally investigate or prosecute any alcohol or drug abuse patient.[facility] HospitalIn the event this information is protected by the Federal Confidentiality of Alcohol and Drug Abuse Patient Records regulations: The Federal rules restrict any use of the information to criminally investigate or prosecute any alcohol or drug abuse patient.[facility] HospitalIn the event this information is protected by the Federal Confidentiality of Alcohol and Drug Abuse Patient Records regulations: The Federal rules restrict any use of the information to criminally investigate or prosecute any alcohol or drug abuse patient.[facility] HospitalIn the event this information is protected by the Federal Confidentiality of Alcohol and Drug Abuse Patient Records regulations: The Federal rules restrict any use of the information to criminally investigate or prosecute any alcohol or drug abuse patient.[facility] HospitalIn the event this information is protected by the Federal Confidentiality of Alcohol and Drug Abuse Patient Records regulations: The Federal rules restrict any use of the information to criminally investigate or prosecute any alcohol or drug abuse patient.[facility] HospitalIn the event this information is protected by the Federal Confidentiality of Alcohol and Drug Abuse Patient Records regulations: The Federal rules restrict any use of the information to criminally investigate or prosecute any alcohol or drug abuse patient.[facility] HospitalIn the event this information is protected by the Federal Confidentiality of Alcohol and Drug Abuse Patient Records regulations: The Federal rules restrict any use of the information to criminally investigate or prosecute any alcohol or drug abuse patient.[facility] HospitalIn the event this information is protected by the Federal Confidentiality of Alcohol and Drug Abuse Patient Records regulations: The Federal rules restrict any use of the information to criminally investigate or prosecute any alcohol or drug abuse patient.[facility] HospitalIn the event this information is protected by the Federal Confidentiality of Alcohol and Drug Abuse Patient Records regulations: The Federal rules restrict any use of the information to criminally investigate or prosecute any alcohol or drug abuse patient.[facility] HospitalIn the event this information is protected by the Federal Confidentiality of Alcohol and Drug Abuse Patient Records regulations: The Federal rules restrict any use of the information to criminally investigate or prosecute any alcohol or drug abuse patient.[facility] HospitalIn the event this information is protected by the Federal Confidentiality of Alcohol and Drug Abuse Patient Records regulations: The Federal rules restrict any use of the information to criminally investigate or prosecute any alcohol or drug abuse patient.[facility] HospitalIn the event this information is protected by the Federal Confidentiality of Alcohol and Drug Abuse Patient Records regulations: The Federal rules restrict any use of the information to criminally investigate or prosecute any alcohol or drug abuse patient.[facility] HospitalIn the event this information is protected by the Federal Confidentiality of Alcohol and Drug Abuse Patient Records regulations: The Federal rules restrict any use of the information to criminally investigate or prosecute any alcohol or drug abuse patient.[facility] HospitalIn the event this information is protected by the Federal Confidentiality of Alcohol and Drug Abuse Patient Records regulations: The Federal rules restrict any use of the information to criminally investigate or prosecute any alcohol or drug abuse patient.[facility] HospitalIn the event this information is protected by the Federal Confidentiality of Alcohol and Drug Abuse Patient Records regulations: The Federal rules restrict any use of the information to criminally investigate or prosecute any alcohol or drug abuse patient.[facility] HospitalIn the event this information is protected by the Federal Confidentiality of Alcohol and Drug Abuse Patient Records regulations: The Federal rules restrict any use of the information to criminally investigate or prosecute any alcohol or drug abuse patient.[facility] HospitalIn the event this information is protected by the Federal Confidentiality of Alcohol and Drug Abuse Patient Records regulations: The Federal rules restrict any use of the information to criminally investigate or prosecute any alcohol or drug abuse patient.[facility] HospitalIn the event this information is protected by the Federal Confidentiality of Alcohol and Drug Abuse Patient Records regulations: The Federal rules restrict any use of the information to criminally investigate or prosecute any alcohol or drug abuse patient.[facility] HospitalIn the event this information is protected by the Federal Confidentiality of Alcohol and Drug Abuse Patient Records regulations: The Federal rules restrict any use of the information to criminally investigate or prosecute any alcohol or drug abuse patient.[facility] HospitalIn the event this information is protected by the Federal Confidentiality of Alcohol and Drug Abuse Patient Records regulations: The Federal rules restrict any use of the information to criminally investigate or prosecute any alcohol or drug abuse patient.[facility] HospitalIn the event this information is protected by the Federal Confidentiality of Alcohol and Drug Abuse Patient Records regulations: The Federal rules restrict any use of the information to criminally investigate or prosecute any alcohol or drug abuse patient.[facility] HospitalIn the event this information is protected by the Federal Confidentiality of Alcohol and Drug Abuse Patient Records regulations: The Federal rules restrict any use of the information to criminally investigate or prosecute any alcohol or drug abuse patient.[facility] HospitalIn the event this information is protected by the Federal Confidentiality of Alcohol and Drug Abuse Patient Records regulations: The Federal rules restrict any use of the information to criminally investigate or prosecute any alcohol or drug abuse patient.[facility] HospitalIn the event this information is protected by the Federal Confidentiality of Alcohol and Drug Abuse Patient Records regulations: The Federal rules restrict any use of the information to criminally investigate or prosecute any alcohol or drug abuse patient.[facility] HospitalIn the event this information is protected by the Federal Confidentiality of Alcohol and Drug Abuse Patient Records regulations: The Federal rules restrict any use of the information to criminally investigate or prosecute any alcohol or drug abuse patient.[facility] HospitalIn the event this information is protected by the Federal Confidentiality of Alcohol and Drug Abuse Patient Records regulations: The Federal rules restrict any use of the information to criminally investigate or prosecute any alcohol or drug abuse patient.[facility] HospitalIn the event this information is protected by the Federal Confidentiality of Alcohol and Drug Abuse Patient Records regulations: The Federal rules restrict any use of the information to criminally investigate or prosecute any alcohol or drug abuse patient.[facility] HospitalIn the event this information is protected by the Federal Confidentiality of Alcohol and Drug Abuse Patient Records regulations: The Federal rules restrict any use of the information to criminally investigate or prosecute any alcohol or drug abuse patient.[facility] HospitalIn the event this information is protected by the Federal Confidentiality of Alcohol and Drug Abuse Patient Records regulations: The Federal rules restrict any use of the information to criminally investigate or prosecute any alcohol or drug abuse patient.[facility] HospitalIn the event this information is protected by the Federal Confidentiality of Alcohol and Drug Abuse Patient Records regulations: The Federal rules restrict any use of the information to criminally investigate or prosecute any alcohol or drug abuse patient.[facility] HospitalIn the event this information is protected by the Federal Confidentiality of Alcohol and Drug Abuse Patient Records regulations: The Federal rules restrict any use of the information to criminally investigate or prosecute any alcohol or drug abuse patient.[facility] HospitalIn the event this information is protected by the Federal Confidentiality of Alcohol and Drug Abuse Patient Records regulations: The Federal rules restrict any use of the information to criminally investigate or prosecute any alcohol or drug abuse patient.[facility] HospitalIn the event this information is protected by the Federal Confidentiality of Alcohol and Drug Abuse Patient Records regulations: The Federal rules restrict any use of the information to criminally investigate or prosecute any alcohol or drug abuse patient.[facility] Reason for Visit (unrecogniz ed section and content) Reason Comments Rhinitis had this a couple of months ago and needed ATB Cough sinus drainage Reason Comments Follow Up 6 month Reason Comments Stress Test Instructions Reason Comments Follow Up Pt reported x1 wk di fficulty with talking, reported sensation object in throat, denied pain Cough x1 wk Reason Comments Results Reason Comments Results Thyroid US Reason Comments Results Echo Reason Comments Right Knee Pain Reason Comments Acute Visit right knee pain- 1 w [facility] [place] ago Reason Comments 6 Month Exam Reason Comments Nonexudative Macular Degeneration Follow Up Bilateral, 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 Punctate Keratitis Bilateral Pseudophakia Bilateral Reason Comments Macular Degeneration Evaluation Reason Comments 6 Month Exam Reason Comments Consult post-nasal drip/ Vas omotor rhinitis/ tinnitus- sx for years Specialty Diagnoses / [facility] Ent - Otolaryngology Diagnoses PND (post-nasal drip) Vasomotor rhinitis Procedures CONSULT TO ENT OFFICE/OUTPATIENT [facility] MDM 60-74 MINUTES Diego Huffman MD [address] [place] [address] Referral ID Status Reason Start Date Expiration Date Visits Requested Visits Authorized [id number] Pending Review PCP Requested Referral 03/02/2023 03/01/2024 1 1 Reason Comments Urinary Frequency Reason Comments Consult Urinary Frequency Benign Prostatic Hypertrophy Specialty Diagnoses / Procedures [facility] To Contact Urology Diagnoses Urgency of urination Nocturia Benign prostatic hyperplasia with nocturia Procedures CONSULT TO UROLOGY OFFICE/OUTPATIENT [facility] 60-74 MINUTES Diego Huffman MD [address] [place] [address] Referral ID Status Reason Start Date Expiration Date Visits Requested Visits Authorized [id number] Pending Review PCP Requested Referral 07/08/2023 07/07/2024 1 1 Reason Comments 6 Month Exam Reason Comments Established Patient Benign Prostatic Hypertrophy Specialty Diagnoses / Procedures [facility] Referred To Contact Urology Diagnoses Benign prostatic hyperplasia with nocturia Urgency of urination Procedures CONSULT TO UROLOGY OFFICE/OUTPATIENT [facility] 60 MINUTES Diego Huffman MD [address] [place] [address] Referral ID Status Reason Start Date Expiration Date V isits Requested Visits Authorized [id number] Closed PCP Requested Referral 03/12/2024 03/12/2025 1 1 Reason Onset Date Comments Refill Request 07/11/2024 Reason Onset Date Comments Immunizations 07/31/2024 Flu vaccination Nurse Visit high dose flu va ccine Reason Comments ED Follow-up Reason Comments Pain (foot) Reason Comments Follow Up Benign Prostatic Hypertrophy Specialty Diagnoses / Procedures Referred By [facility] Referred To Contact Urology Diagnoses Urgency of urination Procedures CONSULT TO UROLOGY OFFICE/OUTPATIENT [facility] 60 MINUTES Ana Resendez APRN.CNP [address] [phone] Referral ID Status Reason Start Date Expiration Date V isits Requested Visits Authorized [id number] Closed PCP Requested Referral 08/29/2024 08/29/2025 1 1 Reason Comments New Pain Specialty Diagnoses / Procedures Referred By [facility] Referred To Contact Podiatry Diagnoses Foot pain, right Procedures CONSULT TO PODIATRY OFFICE/OUTPATIENT [facility] 60 MINUTES Diego Huffman MD [address] [place] [address] Referral ID Status Reason Start Date Expiration Date V isits Requested Visits Authorized [id number] Closed PCP Requested Referral 09/26/2024 09/26/2025 1 1 Reason Comments had audio today Ringing In Ear(s) For years right ear is louder than the left ear. 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 Procedures MRI BRAIN WO/W IVCON MRI BRAIN BRAIN STEM W/O W/CONTRAST MATERIAL Rosa Elena Ramon MD [address] [address] [facility] [place] [address] Referral ID Status Reason Start Date Expiration Date Visits Re quested Visits Authorized [id number] Closed 12/12/2024 11/27/2025 1 1 Reason Comments CARD New Patient Consult Prev saw [facility]: 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 with normal coronaries per pre [facility] cardiac cath report 08/24/2013, post afib maintaining sinus rhythm, HTN, GERD Reason Comments BPH Reason Comments Chest Congestion cough x 1 week Reason Comments Follow Up Benign Prostatic Hypertrophy OAB Reason Comments Sore Throat X 1 week, nose was b leeding but has not done so in 2 days Reason Onset Date Comments Results 03/08/2025 Reason Comments Medication Problem Reason Comments Appointment Reason Comments Established Patient Follow Up Reason Comments Established Patient 8 week follow up/urg ency,BPH,OAB Reason Comments Eating Disorders Reason Comments Spirometry Specialty Diagnoses / Procedures Referred By Connie egan [facility] Diagnoses Chronic cough Procedures SPIROMETRY WITH DILATOR IF OBSTRUCTED BRNCDILAT RSPSE SPMTRY PRE&POST-BRNCDILAT ADMN Diego Huffman MD [address] [place] [address] Phone: tel: fax: [facility] [place] [address] Referral ID Status Reason Start Date Expiration Date V isits Requested Visits Authorized [id number] Closed Auto-Generate d Referral 04/28/2025 11/27/2025 1 1 Specialty Diagnoses / Procedures Referred By Connie t Referred To Contact [facility] Diagnoses Chronic cough Procedures LUNG VOLUMES PLETHYSMOGRAPHY LUNG VOLUMES W/WO AIRWAY RESIST Diego Huffman MD [address] [place] [address] Phone: tel: fax: [facility] [address] [place] [address] Referral ID Status Reason Start Date Expiration Date V isits Requested Visits Authorized [id number] Closed Auto-Generate d Referral 04/28/2025 11/27/2025 1 1 Care Teams (unrecognized sec tion and content) [place] Specialist Relationship Specialty Start Date End Date Diego Huffman MD [address] [place], [place] [id number] PCP - General Family Practice 09/01/21 Luis Cordero [facility] [address] Consulting Cardiology 12/04/21 [place] Specialist Relationship Specialty Start Date End Date Diego Huffman MD [address], [place] [address] PCP - General Family Practice 09/01/21 Luis Cordero [facility] [place] [address] Consulting Cardiology 12/04/21 [place] Specialist Relationship Specialty Start Date End Date Diego Huffman MD [address] [place], [place] [id number] PCP - General Family Practice 09/01/21 Luis Cordero [facility] [place] [address] Consulting Cardiology 12/04/21 [place] Specialist Relationship Specialty Start Date End Date Diego Huffman MD [address] [place], [place] [address] PCP - General Family Practice 09/01/21 Luis Cordero DO [facility] [place] [address] Consulting Cardiology 12/04/21 [place] Specialist Relationship Specialty Start Date End Date Diego Huffman MD [address] [place] [address] PCP - General Family Practice 09/01/21 Luis Cordero DO [facility] [place] [address] Consulting Cardiology 12/04/21 [place] Specialist Relationship Specialty Start Date End Date Diego Huffman MD [address] [place] [address] PCP - General Family Practice 09/01/21 Luis Cordero DO [facility] [place] [address] Consulting Cardiology 12/04/21 [place] Specialist Relationship Specialty Start Date End Date Diego uHffman MD [address] [place] [address] PCP - General Family Practice 09/01/21 Luis Cordero DO [facility] [place] [address] Consulting Cardiology 12/04/21 [place] Specialist Relationship Specialty Start Date End Date Diego Huffman MD [address] [place] [address] PCP - General Family Practice 09/01/21 Luis Cordero DO [facility] [place] [address] Consulting Cardiology 12/04/21 [place] Specialist Relationship Specialty Start Date End Date Diego Huffman MD [address] [place] [address] PCP - General Family Practice 09/01/21 Luis Cordero DO [facility] [place] [address] Consulting Cardiology 12/04/21 [place] Specialist Relationship Specialty Start Date End Date Diego Huffman MD [address] [place] [address] PCP - General Family Medicine 09/01/21 Luis Cordero DO [facility] [place] [address] Consulting Cardiology 12/04/21 [place] Specialist Relationship Specialty Start Date End Date Diego Huffman MD [address] [place] [address] PCP - General Family Medicine 09/01/21 Luis Cordero DO [facility] [place] [address] Consulting Cardiology 12/04/21 [place] Specialist Relationship Specialty Start Date End Date Diego Huffman MD [address] [place] [address] PCP - General Family Medicine 09/01/21 Luis Cordero DO [facility] [place] [address] Consulting Cardiology 12/04/21 [place] Specialist Relationship Specialty Start Date End Date Diego Huffman MD [address] [place] [address] PCP - General Family Medicine 09/01/21 Luis Cordero DO [facility] [place] [address] Consulting Cardiology 12/04/21 [place] Specialist Relationship Specialty Start Date End Date Diego Huffman MD [address] [place] [address] PCP - General Family Medicine 09/01/21 Luis Cordero DO [facility] [place] [address] Consulting Cardiology 12/04/21 [place] Specialist Relationship Specialty Start Date End Date Diego Huffman MD [address] [place] [address] PCP - General Family Medicine 09/01/21 Luis Cordero DO [address] [place] [address] Consulting Cardiology 12/04/21 [place] Specialist Relationship Specialty Start Date End Date Diego Huffman MD [address] [place] [address] PCP - General Family Medicine 09/01/21 Luis Cordero DO [address] [place] [address] Consulting Cardiology 12/04/21 [place] Specialist Relationship Specialty Start Date End Date Diego Huffman MD [address] [place] [address] PCP - General Family Medicine 09/01/21 Luis Cordero DO [address] [place] [address] Consulting Cardiology 12/04/21 [place] Specialist Relationship Specialty Start Date End Date Diego Huffman MD [address] [place] [address] PCP - General Family Medicine 09/01/21 Luis Cordero DO [address] [place] [address] Consulting Cardiology 12/04/21 [place] Specialist Relationship Specialty Start Date End Date Diego Huffman MD [address] [place] [address] PCP - General Family Medicine 09/01/21 Luis Cordero DO [address], [place] [id number] Consulting Cardiology 12/04/21 [place] Specialist Relationship Specialty Start Date End Date Diego Huffman MD [address], [place] [address] PCP - General Family Medicine 09/01/21 Luis Cordero DO [facility] [place], [place] [id number] Consulting Cardiology 12/04/21 [place] Specialist Relationship Specialty Start Date End Date Diego Huffman MD [address] [place] [address] PCP - General Family Medicine 09/01/21 Luis Cordero DO [facility] [place], [place] [id number] Consulting Cardiology 12/04/21 [place] Specialist Relationship Specialty Start Date End Date Diego Huffman MD [address] [place] [address] PCP - General Family Medicine 09/01/21 Luis Cordero DO [address] [place], [place] [id number] Consulting Cardiology 12/04/21 Telesales Specialist Relationship Specialty Start Date End Date Diego Huffman MD [address] [place], [place] [address] PCP - General Family Medicine 09/01/21 Luis Cordero DO [address] [place] [address] Consulting Cardiology 12/04/21 Telesales Specialist Relationship Specialty Start Date End Date Diego Huffman MD [address] [place], [place] [id number] PCP - General Family Medicine 09/01/21 Luis Cordero DO [address], [place] [id number] Consulting Cardiology 12/04/21 Telesales Specialist Relationship Specialty Start Date End Date Diego Huffman MD [address] [place] [address] PCP - General Family Medicine 09/01/21 Luis Cordero DO [address], [place] [id number] Consulting Cardiology 12/04/21 Telesales Specialist Relationship Specialty Start Date End Date Deigo Huffman MD [address] [place] [address] PCP - General Family Medicine 09/01/21 Luis Cordero DO [address] [place] [address] Consulting Cardiology 12/04/21 Telesales Specialist Relationship Specialty Start Date End Date Diego Huffman MD [address] [place] [address] PCP - General Family Medicine 09/01/21 Luis Cordero DO [address] [place] [address] Consulting Cardiology 12/04/21 Telesales Specialist Relationship Specialty Start Date End Date Diego Huffman MD [address] [place] [address] PCP - General Family Medicine 09/01/21 Luis Cordero DO [address] [place] [address] Consulting Cardiology 12/04/21 Telesales Specialist Relationship Specialty Start Date End Date Diego Huffman MD [address] [place] [address] PCP - General Family Medicine 09/01/21 Luis Cordero DO [address] [place] [address] Consulting Cardiology 12/04/21 Telesales Specialist Relationship Specialty Start Date End Date Diego Huffman MD [address] [place], [place] [address]40[address] PCP - General Family Medicine 09/01/21 Luis Cordero DO [address] [place] [address] Consulting Cardiology 12/04/21 Telesales Specialist Relationship Specialty Start Date End Date Diego Huffman MD [address] [place] [address] PCP - General Family Medicine 09/01/21 Lusi Cordero DO [address] [place] [address] Consulting Cardiology 12/04/21 Telesales Specialist Relationship Specialty Start Date End Date Diego Huffman MD [address] [facility] [place] [address] PCP - General Family Medicine 09/01/21 Luis Cordero DO [address] [place] [address] [phone] Consulting Cardiology 12/04/21 Ana Resendez TECHNICAL ENGINEER.CHILD CARE GROUP LEADER [address] [place] [address] Sharepoint Architect Family Medicine 11/05/24 Vicki Lomax TECHNICAL ENGINEER.CHILD CARE GROUP LEADER [address] [facility] [place] [address] Sharepoint Architect Family Medicine 11/05/24 Telesales Specialist Relationship Specialty Start Date End Date Diego Huffman MD [address] [facility] [place] [address] PCP - General Family Medicine 09/01/21 Luis Cordero DO [address] [place] [address] Consulting Cardiology 12/04/21 Ana Resendez TECHNICAL ENGINEER.CHILD CARE GROUP LEADER [address] [place] [address] Sharepoint Architect Family Medicine 11/05/24 Vicki Lomax TECHNICAL ENGINEER.CHILD CARE GROUP LEADER [address] [facility] [place] [address] Sharepoint Architect Family Medicine 11/05/24 Telesales Specialist Relationship Specialty Start Date End Date Diego Huffman MD [address] [place] [address] PCP - General Family Medicine 09/01/21 Luis Cordero DO [address] [place] [address] [phone] Consulting Cardiology 12/04/21 Ana Resendez, TECHNICAL ENGINEER.CHILD CARE GROUP LEADER [address] [place] [address] Sharepoint Architect Family Medicine 11/05/24 Vicki Lomax TECHNICAL ENGINEER.CHILD CARE GROUP LEADER [address] [place] [address] Sharepoint Architect Family Medicine 11/05/24 Telesales Specialist Relationship Specialty Start Date End Date Diego Huffman MD [address] [place] [address] PCP - General Family Medicine 09/01/21 Luis Cordero DO [address] [place] [address] Consulting Cardiology 12/04/21 Ana Resendez, TECHNICAL ENGINEER.CHILD CARE GROUP LEADER [address] [place] [address] [employer] Architect Family Medicine 11/05/24 Vicki Lomax TECHNICAL ENGINEER.CHILD CARE GROUP LEADER [address] [place] [address] Sharepoint Architect Family Medicine 11/05/24 Telesales Specialist Relationship Specialty Start Date End Date Diego Huffman MD [address] [place], [place] 666852 [phone] PCP - General Family Medicine 09/01/21 Luis Cordero DO [address], [place] [phone] Consulting Cardiology 12/04/21 Ana Resendez, SHARIFA.CHILD CARE GROUP LEADER [address] [place] [address] Sharepoint Architect Family Medicine 11/05/24 Vicki Lomax TECHNICAL ENGINEER.CHILD CARE GROUP LEADER [address] [place] [address] Sharepoint Architect Family Medicine 11/05/24 Telesales Specialist Relationship Specialty Start Date End Date Diego Huffman MD [address] [place], [place] 6[address]11 PCP - General Family Medicine 09/01/21 Luis Cordero DO [address], [place] [phone] Consulting Cardiology 12/04/21 Ana Resendez, TECHNICAL ENGINEER.CHILD CARE GROUP LEADER [address] [place] [address] Sharepoint Architect Family Medicine 11/05/24 Vicki Lomax TECHNICAL ENGINEER.CHILD CARE GROUP LEADER [address] [place] [address] Sharepoint Architect Family Medicine 11/05/24 Telesales Specialist Relationship Specialty Start Date End Date Diego Huffman MD [address] [place] [address] PCP - General Family Medicine 09/01/21 Luis Cordero DO [address], [place] [phone] Consulting Cardiology 12/04/21 Ana Resendez APRN.CHILD CARE GROUP LEADER [address] [place] [address] Sharepoint Architect [facility] 11/05/24 Vicki Lomax APRN.CHILD CARE GROUP LEADER [address] [place] [address] Sharepoint Architect [facility] 11/05/24 Telesales Specialist Relationship Specialty Start Date End Date Diego Huffman MD [address] [place] [address] PCP - General Family Medicine 09/01/21 Luis Cordero DO [address] [place] [address] [phone] Consulting Cardiology 12/04/21 Ana Resendez, TECHNICAL ENGINEER.CHILD CARE GROUP LEADER [address] [place] [address] [facility] 11/05/24 Vicki Lomax, TECHNICAL ENGINEER.CHILD CARE GROUP LEADER [address] [place] [address] [facility] 11/05/24 Telesales Specialist Relationship Specialty Start Date End Date Diego Huffman MD [address] [place], [place] [address]141 PCP - General Family Medicine 09/01/21 Luis Cordero DO [address] [place], [place] [phone] Consulting Cardiology 12/04/21 Ana Resendez APRN.CHILD CARE GROUP LEADER [address] [place] [address] [facility] 11/05/24 Vicki Lomax APRN.CHILD CARE GROUP LEADER [address] [place] [address] [facility] 11/05/24 Telesales Specialist Relationship Specialty Start Date End Date Diego Huffman MD [address] [facility] [place] [address] PCP - General Family Medicine 09/01/21 Luis Cordero DO [facility] [address] [place], [place] [phone] Consulting Cardiology 12/04/21 Ana Resendez APRN.CHILD CARE GROUP LEADER [address] [place] [address] [facility] 11/05/24 Vicki Lomax APRN.CHILD CARE GROUP LEADER [address] [facility] [place] [address] [facility] 11/05/24 Telesales Specialist Relationship Specialty Start Date End Date Diego Huffman MD [address] [facility] [place] [address] PCP - General Family Medicine 09/01/21 Luis Cordero DO [address] [place] [address] Consulting Cardiology 12/04/21 Ana Resendez APRN.CHILD CARE GROUP LEADER [address] [place] [address] [facility] 11/05/24 Vicki Lomax APRN.CHILD CARE GROUP LEADER [address] [place] [address] [facility] 11/05/24 Telesales Specialist Relationship Specialty Start Date End Date Diego Huffman MD [address] [place] [address] PCP - General Family Medicine 09/01/21 Luis Cordero DO [address], [place] [phone] Consulting Cardiology 12/04/21 Ana Resendez TECHNICAL ENGINEER.CHILD CARE GROUP LEADER [address] [place] [address] [facility] 11/05/24 Vicki Lomax TECHNICAL ENGINEER.CHILD CARE GROUP LEADER [address] [place] [address] [facility] 11/05/24 Telesales Specialist Relationship Specialty Start Date End Date Diego Huffman MD [address] [place] [address] PCP - General Family Medicine 09/01/21 Luis Cordero DO [address], [place] [phone] Consulting Cardiology 12/04/21 Ana Resendez APRN.CHILD CARE GROUP LEADER [address] [place] [address] [employer] Architect Family Medicine 11/05/24 Vicki Lomax APRN.CHILD CARE GROUP LEADER [address] [facility] [place] [address] [facility] 11/05/24 Telesales Specialist Relationship Specialty Start Date End Date Diego Huffman MD [address] [facility] [place] [address] PCP - General Family Medicine 09/01/21 Luis Cordero DO [facility] [address] [place], [place] [phone] Consulting Cardiology 12/04/21 Ana Resendez APRN.CHILD CARE GROUP LEADER [address] [place] [address] [facility] 11/05/24 Vicki Lomax APRN.CHILD CARE GROUP LEADER [address] [facility] [place] [address] [facility] 11/05/24 Telesales Specialist Relationship Specialty Start Date End Date Diego Huffman MD [address] [facility] [place] [address] PCP - General Family Medicine 09/01/21 Luis Cordero DO [facility] [place] [address] Consulting Cardiology 12/04/21 Ana Resendez APRN.CHILD CARE GROUP LEADER [address] [place] [address] [facility] 11/05/24 Vicki Lomax APRN.CHILD CARE GROUP LEADER [address] [facility], [place] [address] Sharepoint Architect Family Medicine 11/05/24 Telesales Specialist Relationship Specialty Start Date End Date Diego Huffman MD [address] [place], [place] [address] PCP - General Family Medicine 09/01/21 Luis Cordero DO [facility] [address] [place], [place] [phone] Consulting Cardiology 12/04/21 Ana Resendez, TECHNICAL ENGINEER.CHILD CARE GROUP LEADER [address] [place] [address] [employer] Architect Family Medicine 11/05/24 Vicki Lomax TECHNICAL ENGINEER.CHILD CARE GROUP LEADER [address] [place] [address] Sharepoint Architect Family Medicine 11/05/24 Telesales Specialist Relationship Specialty Start Date End Date Diego Huffman MD [address] [place], [place] 150331 PCP - General Family Medicine 09/01/21 Luis Cordero DO [address] [place] [address] Consulting Cardiology 12/04/21 Ana Resendez, TECHNICAL ENGINEER.CHILD CARE GROUP LEADER [address] [place] [address] Share[employer] Architect Family Medicine 11/05/24 Vicki Lomax TECHNICAL ENGINEER.CHILD CARE GROUP LEADER [address] [place] [address] Sharepoint Architect Family Medicine 11/05/24 Telesales Specialist Relationship Specialty Start Date End Date Diego Huffman MD [address] [place], [place] [phone] PCP - General Family Medicine 09/01/21 Luis Cordero DO [address] [place], [place] [phone] Consulting Cardiology 12/04/21 Ana Resendez APRN.CHILD CARE GROUP LEADER [address] [place], [place] 353141 Sharepoint Architect [facility] 11/05/24 Vicki Lomax APRN.CHILD CARE GROUP LEADER [address] [place], [place] [address]36131 Sharepoint Architect Family [facility] 11/05/24 (unrecognized sect ion and content) No Status Records FoundNo Status Records FoundNo Status Records Found INFORMATION SOURCE (unrecogn ized section and content) DATE CREATED AUTHOR 03/05/2022 [facility] DATE CREATED AUTHOR AUTHOR'S ORGANIZ ATION 08/28/2024 [facility] DATE CREATED AUTHOR AUTHOR'S ORGANIZ ATION 05/28/2025 [facility] Goals (unrecognized section and content) Goals may be documented in a n alternate section FOR RECORDS PERTAINING TO PATIENTS WHO ARE OR HAVE BEEN ENROLLED IN A CHEMICAL DEPENDENCY/SUBSTANCEABUSE PROGRAM, SOME INFORMATION MAY BE OMITTED. This clinical summary was aggregated from multiple sources. Caution should be exercised in using it in the provision of clinical care. This summary normalizes information from multiple sources, and as a consequence, information in this document may materially change the coding, format and clinical context of patient data. In addition, data may be omitted in some cases. CLINICAL DECISIONS SHOULD BE BASED ON THE PRIMARY CLINICAL RECORDS. [employer] provides no warranty or guarantee of the accuracy or completeness of information in this document.
--- NOTE | 2025-06-02 15:05 | CASEMGMT ---
Care Management Face to Face with patient for initial transition planning/care coordination assessment in the ED.? This writer editor introduced self and role at [facility]. Patient alert and oriented. Patient willing to participate in assessment and is able to answer all questions appropriately.? Care providers, pharmacy, and demographics verified. Patient?s was at bedside, however, did not assist with the assessment. 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 PCP: Dr. Diego Giles Specialists: Gastro: [facility] Admitting Clerk: Dr. Bossman Cohen Preferred Pharmacy: [facility] Insurance: Medicare; [employer] Prescription Benefit: Yes Living Will/HPOA: ?Yes, full code, will have son bring in. LNOK: Patient?s , Meghan and son, Musa. Patient had a daughter, however daughter is .? Patient stated his daughter was sick for 50 years. Living Arrangements: Patient currently lives at home with his and his adult son, Msua who pays the house note and has an apartment in the basement. Home is a one-story with a full, finished basement. Patient stated there is 1 step with a handrail leading in/out of the home which patient stated he is able to navigate without difficulty. Patient denied any environmental barriers. Transportation: Patient drives. Patient?s used to also drive, however, was told roughly a month ago by her PCP, also Dr. Giles, that she has early onset dementia and should not be driving.? Patient has not driven since. Patient?s was angry over her driving privileges being revoked and blames patient. Patient?s expressed verbal dissatisfaction and discontent. Patient?s son can also assist with transportation if ever needed. DME: Standard cane, quad cane, manual wheelchair, grab bar by shower, grab bar by toilet, high toilet and a rollator. HHC: Denied SNF/Rehab: Denied Community Resources: [facility] History: Denied Patient goals: Patient wishes to discharge home when medically ready and denied need for home health care at this time. Patient denied any further needs or concerns. Disposition Plan: admission to acute; RN CM/SW to follow for discharge planning needs that may arise. Lara Chavez, LABORER [employer]ING [employer]ING, ARC WELDING MACHINE OPERATOR
[2025-06-02 15:14] LABS: Anion Gap 12 (5-15); BUN 25 mg/dL (4-19); BUN/Creat Ratio 22.1 RATIO (10-20); Calcium,Total 9.1 mg/dL (7.6-11.0); Carbon Dioxide 23.1 mmol/L (21.0-32.0); Chloride 107 mmol/L (98-108); Estimated Creatinine Clearance 55.81 ml/min (50-250); Glucose 99 mg/dL (70-99); Potassium 4.2 mmol/L (3.3-5.1)
--- NOTE | 2025-06-02 15:21 | ED.VIS.STROK ---
HPI History of Present Illness Chief Complaint: Dizziness Detail of Chief Complaint: Persistent dizziness for the past 2 to 3 days. Informant: patient and spouse/S.O. Onset/Context/Timing Onset: Days (2 to 3 days ago) Context: Sudden Onset Timing: Continuous Quality and Location: Positive for Difficulty with Ambulation Onset: 2 to 3 days ago Current Severity: Mild Maximum Severity: Mild Worsened by: Tandem gait Relieved by: Nothing Associated Symptoms Associated Symptoms: Negative for Headache, Nausea, Vomiting or Chest Pain Narrative Narrative: Patient is an 84-year-old male. He presents because of difficulty ambulating. Symptoms started 2 to 3 days ago. He complains of dizziness. When asked to define dizziness his definition is his balance is off. He also feels his vision got a fall. He denies headache. Denies double vision blurred vision loss of vision. He has ringing in his ears which is a chronic issue. Denies decreased hearing. Has trouble with speech or swallowing. He denies cardiac or respiratory symptoms. He denies GI symptoms. He denies paresthesia, anesthesia or motor weakness upper or lower extremity. Patient was seen for dizziness August 27, [address] Manzanares. Patient was discharged with diagnosis of dizziness and lightheadedness. Prior similar symptoms: No Recent Illness/Hospitalization: No [facility] Medical History HTN (hypertension) Home Medications ?Medication ?Instructions ?Recorded ?Last Taken ?Type amlodipine 2.5 mg tablet 2.5 mg PO DAILY daily 06/02/25 06/02/25 History aspirin 81 mg capsule 81 mg PO DAILY daily 06/02/25 06/02/25 History Allergy/AdvReac Type Severity Reaction Status Date / Time No Known Allergies Allergy Verified 06/02/25 13:55 Surgical History Hx of atrial septal defect repair Hx of total knee replacement Social History (Updated 06/02/25 @ 15:[address] Edi Moulton MD) household members: spouse Smoking Status: Never smoker ROS ROS ED Constitutional Constitutional ED: Denies chills, fever(s), subjective, sweats or weakness Eyes Eyes: Denies blurry vision, change in vision or diplopia ENT ENT ED: Denies ear pain, rhinorrhea or sore throat Cardiovascular Cardiovascular: Denies chest pain, palpitations or paroxysmal nocturnal dyspnea Respiratory/Chest Respiratory/Chest: Denies cough, dyspnea, dyspnea on exertion or paroxysmal nocturnal dyspnea Gastrointestinal Gastrointestinal: Denies abdominal pain, nausea or vomiting Genitourinary Genitourinary ED: Denies dysuria, hematuria or urinary frequency Musculoskeletal Musculoskeletal: Denies arthralgias, myalgias or neck pain Integumentary Denies rash Neurologic Neurologic: Denies headache(s), paresthesias or weakness Psychiatric Psychiatric: Denies anxiety or depression Hematologic/Lymphatic Hematologic/Lymphatic: Denies easy bleeding or easy bruising EXAM Physical Exam Const Vital Signs: 06/02/25 13:56 06/02/25 13:58 06/02/25 14:29 Temperature 96.0 F L Temperature Source Temporal Pulse Rate 65 Respiratory Rate 16 Blood Pressure 142/80 H Blood Pressure Mean 100 Pulse Ox 98 Oxygen Delivery Method Room Air Room Air Room Air Positive well nourished and well developed General Appearance ED: well developed and NAD HEENT Reports moist mucous membranes atraumatic Eyes PERRL and EOMs intact bilaterally Eyes Narrative: There is no nystagmus with central gaze. General Eye ED: Negative for pale conjunctiva or scleral icterus Neck no lymphadenopathy, supple and no JVD Chest Wall inspection of chest normal and palpation of chest normal Resp normal respiratory effort and clear to auscultation bilaterally Cardio no murmurs Rate: regular rate Rhythm: regular rhythm Heart Sounds: S1 normal and S2 normal GI normal to inspection, nondistended, normoactive bowel sounds, soft to palpation, non-tender, non-distended and no masses Back/Spine no CVA tenderness Extremity normal to inspection General Extremety ED: Negative for deformity or edema General Extremity: Negative for deformity or edema Neuro oriented x3, CN's II-XII intact bilaterally and no sensory deficits noted Angelica Coma Scale: document GCS findings Spontaneous Obeys Commands Confused 14 Sensorium / Orientation: alert Speech: speech normal Gait (Neuro): Negative for normal gait Motor Exam: strength 5/5 throughout Psych mental status grossly normal Skin no wounds General Skin Exam: Negative for jaundice Lesions: no lesions Rashes: no rashes MDM MDM MDM Narrative Medical decision making narrative: 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 Romberg with eyes open and close negative. NIH was 1 because incorrect answer to the month. History & Record Review Discussion w/independent historian: Patient and Significant other Lab Data Attestation: I reviewed the patient's lab results. Lab results narrative: CBC reveals an elevated hemoglobin otherwise unremarkable. Electrolyte panel is unremarkable. BUN to creatinine ratio slightly elevated. Labs: Laboratory Results - last 24 hr 06/02/25 14:10 WBC 5.9 RBC 5.33 Hgb 17.3 H Hct 49.4 MCV 92.7 MCH 32.5 H MCHC 35.0 RDW Std Deviation 45.0 H RDW Coeff of Shady 13.2 Plt Count 185 MPV 9.4 Immature Gran % (Auto) 0.300 Neut % (Auto) 62.8 Lymph % (Auto) 22.6 [place] % (Auto) 10.8 H Eos % (Auto) 2.5 Baso % (Auto) 1.0 Absolute Neuts (auto) 3.7 Absolute Lymphs (auto) 1.34 Nucleated RBC % 0 Sodium 142 Potassium 4.2 Chloride 107 Carbon Dioxide 23.1 Anion Gap 12 BUN 25 H Creatinine 1.12 Estim Creat Clear Calc 55.81 Est GFR (MDRD) Non-Af 66 BUN/Creatinine Ratio 22.1 H Glucose 99 Calcium 9.1 Radiography Diagnostic Testing: Clinical Impression(s) from Imaging Studies Brain CT 06/02/25 14:45 IMPRESSION: No acute intracranial finding. Dr. Mckeon discussed findings with Dr. Moulton via telephone at 3:08 pm on 06/02/25. Reading Location: [facility] I did receive a call from radiologist. She informed that there was no abnormality. 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 EKG Initial EKG: Attestation: I personally reviewed and interpreted this EKG as follows: Interpretation: Sinus Bradycardia (Rate is 54. There is axis to the left. Parables 112 ms. Cures duration 96 ms. QT duration 126 ms.) Management Discussion w/another healthcare provider: wafer line worker/Case management (To help find ride for since patient is insistent that he has to leave to drive his home.) Discharge Plan Dx/Rx/DC Orders Clinical Impression: Ataxia due to cerebrovascular disease, Hypertension, Sinus bradycardia on ECG Disposition Disposition: Acute Care Hospital [facility] NIHSS NIHSS 1a. Level of Consciousness: 0 - Alert; keenly responsive 1b. LOC Questions: 1 - Answers ONE question correctly (Patient stated was April then corrected himself and stated May) 1c. LOC Commands: 0 - Performs BOTH tasks correctly 2. Best Gaze: 0 - Normal 3. Visual: 0 - No visual loss 4. Facial Palsy: 0 - Normal symmetrical movements 5a. Left Arm: 0 - No drift; arm holds 90 (or 45) degrees for full 10 seconds 5b. Right Arm: 0 - No drift; arm holds 90 (or 45) degrees for full 10 seconds 6a. Left Le - No drift; leg holds 30-degree position for full 5 seconds 6b. Right Le - No drift; leg holds 30-degree position for full 5 seconds 7. Limb Ataxia: 0 - Absent 8. Sensory: 0 - Normal; no sensory loss 9. Best Language: 0 - No aphasia; normal 10. Dysarthria: 0 - Normal 11. Extinction and Inattention: 0 - No abnormality Total: 1 Stroke Questions Stroke Team Activated: No Reviewed Inclusion/Exclusion criteria: No Was Patient considered for Endovascular Intervention?: No IV Thrombolytic Administered: No No contraindications from thrombolytic administration: No
[2025-06-02 15:33] LABS: Prothrombin Time (Protime)PT. 14.1 SECONDS (11.7-14.9)
[2025-06-02 15:34] LABS: Partial Thromboplast Time 26.7 Seconds (24.1-36.2)
[2025-06-02 15:46] LABS: Troponin T High Sensitivity 20 ng/L (<=22)
--- NOTE | 2025-06-02 15:48 | PCM.HP.STD ---
HPI - General General Date of Admission: 06/02/25 Date of Service: 06/02/25 Chief Complaint: CVA rule out, difficulty with balance HPI Narrative JONATHAN GREENWOOD, is a 84-year-old male history of hypertension and ASD repair presented [facility] ED 06/02/2025 due to dizziness for the past 2 to 3 days. He has been feeling his balance is off and is having difficulty ambulating and falling to the right. Has some ringing in his ears which is chronic and denies double vision or blurred vision, no headache. No focal deficits. Given patient's ataxic gait there was concern for posterior stroke. In the ED temp 96, heart rate 65 with blood pressure 142/80, respiratory rate 16 pulse ox 98% on room air. CBC with normal white blood cell count, hemoglobin 17.3, BMP with a BUN of [address] of the brain with no acute findings. Hospitalist contacted for admission for stroke rule out. Patient evaluated bedside. Patient reports symptoms started a couple of days ago gradually throughout the day and then have persisted without any improvement or further worsening, he feels his balance is off and occasionally will feel almost lightheaded at random, feels less like he is dizzy and more like he is unable to balance/having ambulatory difficulty. ROS otherwise completely negative [facility] Medical History HTN (hypertension) Home Medications ?Medication ?Instructions ?Recorded ?Last Taken ?Type amlodipine 2.5 mg tablet 2.5 mg PO DAILY daily 06/02/25 06/02/25 History aspirin 81 mg capsule 81 mg PO DAILY daily 06/02/25 06/02/25 History Allergy/AdvReac Type Severity Reaction Status Date / Time No Known Allergies Allergy Verified 06/02/25 13:55 Surgical History Hx of atrial septal defect repair Hx of total knee replacement Social History (Updated 06/02/25 @ 15:[address] Edi Moulton MD) household members: spouse Smoking Status: Never smoker ROS ROS Narrative General: Denies fever/chills HENT: Denies headache, denies stuffy nose, denies sore throat EYES: Denies changes in vision Resp: Denies cough, denies shortness of breath Cardiac: Denies chest pain GI: Denies abdominal pain, denies changes in bowel, denies nausea/vomiting : Denies changes in urination Extremity: Denies swelling MSK: Denies weakness Neuro: Denies any numbness/tingling, feels off balance Heme: Denies any bleeding or bruising Skin: Denies rashes Psychiatric: No complaints voiced Vital Signs Vital Signs Vital Signs: 06/02/25 13:56 06/02/25 13:58 06/02/25 14:29 Temperature 96.0 F L Temperature Source Temporal Pulse Rate 65 Respiratory Rate 16 Blood Pressure 142/80 H Blood Pressure Mean 100 Pulse Ox 98 Oxygen Delivery Method Room Air Room Air Room Air Weight Weight: 91.6 kg Body Mass Index (BMI) 27.3 Physical Exam Narrative General: Alert, oriented, no apparent distress HEENT: Atraumatic, normocephalic Eyes: Anicteric, normal conjunctiva, extraocular movements intact, pupils equal, seem to have extra beats of nystagmus on far left lateral gaze Neck: Supple Respiratory: Clear to auscultation bilaterally, normal respiratory effort Cardiovascular: Regular rate and rhythm GI: Soft, nontender, nondistended Extremities: No edema Musculoskeletal: Strength 5 out of 5 in right upper extremity, 5 out of 5 left upper extremity, 5 out of 5 right lower extremity, 5 out of 5 left lower extremity Neuro: No overt focal neurological deficits, cranial nerves II through XII intact, [id number] without significant difficulty but did seem to have a somewhat easier time with left hand than right Skin: No rashes appreciated Psych: Cooperative Results Lab / Micro Data 06/02/25 14:10 06/02/25 14:10 Labs: Laboratory Results - last 24 hr 06/02/25 14:10: WBC 5.9, RBC 5.33, Hgb 17.3 H, Hct 49.4, MCV 92.7, MCH 32.5 H, MCHC 35.0, RDW Std Deviation 45.0 H, RDW Coeff of Shady 13.2, Plt Count 185, MPV 9.4, Immature Gran % (Auto) 0.300, Neut % (Auto) 62.8, Lymph % (Auto) 22.6, Ada % (Auto) 10.8 H, Eos % (Auto) 2.5, Baso % (Auto) 1.0, Absolute Neuts (auto) 3.7, Absolute Lymphs (auto) 1.34, Nucleated RBC % 0, Sodium 142 06/02/25 14:10: Sodium Cancelled, Potassium 4.2 06/02/25 14:10: Potassium Cancelled, Chloride 107 06/02/25 14:10: Chloride Cancelled, Carbon Dioxide 23.1 06/02/25 14:10: Carbon Dioxide Cancelled, Anion Gap 12 06/02/25 14:10: Anion Gap Cancelled, BUN 25 H 06/02/25 14:10: BUN Cancelled, Creatinine 1.12 06/02/25 14:10: Creatinine Cancelled, Estim Creat Clear Calc 55.81, Est GFR (MDRD) Non-Af 66 06/02/25 14:10: Est GFR (MDRD) Non-Af Cancelled, BUN/Creatinine Ratio 22.1 H 06/02/25 14:10: BUN/Creatinine Ratio Cancelled, Glucose 99 06/02/25 14:10: Glucose Cancelled, Calcium 9.1 06/02/25 14:10: Calcium Cancelled, Troponin T High Sens 20 06/02/25 15:18: PT 14.1, INR 1.1, APTT 26.7 Imaging Radiology Impression Brain CT 06/02/25 14:45 IMPRESSION: No acute intracranial finding. Dr. Mckeon discussed findings with Dr. Moulton via telephone at 3:08 pm on 06/02/25. Reading Location: [facility] Assessment & Plan Assessment/Plan (1) Unsteady gait: PLAN: Plan # Ataxic gait -Admit to tele -CT head w/ chronic changes in ED -CTA head and neck ordered -MRI ordered -NIH q4hr -asa, statin -Echo -PT/OT/Speech eval -Teleneuro consult ordered #Hypertension - Patient reports being on amlodipine at home, will continue this given patient is over 24 hours and we do not need to allow for permissive hypertension # Overactive bladder - Patient reports being on medication for overactive bladder, awaiting med rec update will continue home medication #DVT ppx: Lovenox subcu Madiha Crawford MD Charges/Coding Visit Charges Inpatient E&M: 98541 Init Hosp L1
[2025-06-02 15:50] VITALS: BP 159/78; PULSE 49; RESP 17; TEMP 36.9; O2SAT 98
[2025-06-02 16:01] VITALS: BP 144/78; PULSE 50; RESP 18; O2SAT 96
--- OUTSIDE RECORDS SUMMARY | 2025-06-02 16:01 | XMS RPT_ITS | CCD ---
Author Organization [facility] CliniSyil Care Team Providers Care Custodial Aide Name Role Phone Diego Huffman MD Primary Care Provider Luis Cordero DO Unavailable Diego Huffman Primary Care Unavailable Juan Luis Hughes Attending Unavailable Diego Huffman MD Primary Care Provider Luis Cordero DO Unavailable Haagen MULTIPLE KNIFE EDGE TRIMMER OPERATOR.HOME ENERGY RATER, Ana Unavailable Suppan MULTIPLE KNIFE EDGE TRIMMER OPERATOR.HOME ENERGY RATER, Vicki A Unavailable Suppan MULTIPLE KNIFE EDGE TRIMMER OPERATOR.HOME ENERGY RATER, Vicki A Unavailable [phone] Suppan MULTIPLE KNIFE EDGE TRIMMER OPERATOR.HOME ENERGY RATER, Vicki A Unavailable [phone] BHANU RICHARDS Referring Unavailable DIEGO HUFFMAN Primary [...] Lisinopril; Translations: [LISINOPRIL] Drug Allergy 04-09-2013 Cough [facility] Medications Current Medications Medication Drug Class(es) [...] on above: Take 2 tablets by mo [facility] once daily. aspirin 81 [...] Comment on above: Take 2 tablets by [facility] twice daily for 10 days. iv [...] Comment on above: Take 1 tablet by [facility] once daily. MULTI-VITAMIN ORAL (20 sources) MULTI-VITAMIN [...] on above: Take 1 capsule by mo [facility] once daily. oseltamivir 75 [...] sources) Anticholinergic Start: 04-06-2023 End: 09-14-2024 Ipratropium Jennings (ATROVENT) 21 mcg (0.03 %) nasal spray [...] as needed (pain/inflammation, take with food.). nystatin [id number] unt/ml topical cream (9 sources) Polyene Antifungal [...] Test Name Value Interpretation Reference Range Facility [facility] 05-24-2025 [facility] Telephone (PODIWS) MAXIMO NIXON ([id number]) 1940 M Date Time Provider Department 05/24/25 ROSA ELENA COHEN During your visit today, we recorded the following information about you: Amber Villa LPN 05/27/2025 10:32 AM Signed Rosa Elena Cohen [facility] Podiatry Pool3 days ago Please call patient [...] THIRD INTERMETATARSAL SPACES WITH MILD SURROUNDING BURSITIS. 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 Business Applications Analyst: [employer]Dil Transcribe Date/Time: May 23 2025 1:57P Dictated [...] joints appear intact. DIVISION OF RADIOLOGY Provider, [facility] - 05/23/2025 * * *Final Report* * [...] THIRD INTERMETATARSAL SPACES WITH MILD SURROUNDING BURSITIS. Business Applications Analyst: MALLY Transcribe Date/Time: May 23 2025 1:57P Dictated by : TIMMY QUINN MD This examination was interpreted and the report reviewed and electronically signed by: TIMMY QUINN MD on May 23 2025 2:07PM [facility] US Lower extremity - rightOr dered By: [facility]cf Provider on 05-23-2025 [facility] LUNG VOLUMESon 05-01-2025 LUNG VOLUMES [facility] [place] [address] [place] [place] [address] Test Date: 2025-05-01 Pat Name: MAXIMO NIXON Department: Room: Gender: Male Social Welfare Clerk: : 1940 Requested By: Order Number: [id number] Reading MD: Mitzy Minor MD Interpretive Statements [...] 16:01:34 EDT by Mitzy Minor MD ID: [id number] Name: MAXIMO NIXON Race: White Ht: 72.40 [...] 90-100 0.76 48 FIVC 3.44 3.55 3 OKV63-49 0.88 0.75 2.05 3.99 43 -1.42 1.42 [...] BSTRUCTEDon 05-01-2025 SPIROMETRY WITH DILATOR IF OBSTRUCTED [facility] [address] [address] Test Date: 2025-05-01 Pat Name: MAXIMO NIXON Department: Room: Gender: Male Social Welfare Clerk: : 1940 Requested By: Order Number: [id number] Reading MD: Mitzy Minor MD Interpretive Statements [...] 16:01:34 EDT by Mitzy Minor MD ID: [id number] Name: MAXIMO NIXON Race: White Ht: 72.40 [...] 90-100 0.76 48 FIVC 3.44 3.55 3 BEJ34-87 0.88 0.75 2.05 3.99 43 -1.42 1.42 [...] 75 % FEV1/FVC_LLN (%) : 60 % TIJ95_UKN (L/S) : 4.86 L/S YVV38_KMSL (L/S) : 5.26 L/S PBY88_TZU (L/S) : 0.35 L/S UKS50_FHCU (L/S) : 0.38 L/S HSL07_UJBP (L/S) : 0.50 L/S TDT15_JMN (L/S) : 0.16 L/S JDW96_YTX (L/S) : 1.46 L/S NXC04-72%_PRE (L/S) : 0.88 L/S AUR87-67%_POST (L/S) : 1.42 L/S RDE18-46%_PRED (L/S) : 2.05 L/S KHC99-74%_LLN (L/S) : 0.75 L/S PEF_PRE (L/S) : [...] [facility] CN[facility]on 04-26-2025 [facility] MAXIMO NIX[facility] ([id number]) 1940 M Date Time Provider Department 04/26/25 [...] to swallow. - Recent episodes after eating andorran and also Bhutanese steak. - Unable to finish meals due [...] cardiac surgery and no acute radiographic abnormality. Business Applications Analyst: MALLY Transcribe Date/Time: Apr 27 2025 10:28A Dictated by : ROXANNA LAZAR MD This examination was interpreted and the report reviewed and electronically signed by: ROXANNA LAZAR MD on Apr 27 2025 10:29AM EST [id number] Normal [facility] CNOVon 04-23-2025 CNOV Office Visit (UROLMD ) NIXONMAXIMO ([id number]) 1940 M Date Time Provider Department 04/23/25 11:20 AM STACIE HOOD UROLMD During your visit today, we recorded the following information about you: Weight Height 92.5 kg 1.854 m Mikey Dacosta MA 04/23/2025 12:59 PM Signed Post void bladder scan completed. 0 ml residual remaining. Results reported to KALEB Landeros Becky J, MULTIPLE KNIFE EDGE TRIMMER OPERATOR.KALEB 04/23/2025 12:59 PM Signed Maximo Nxion is a 84 year old male who [...] CNOV Office Visit (PODIWS ) MAXIMO NIXON ([id number]) 1940 M Date Time Provider Department 04/12/25 [...] Patient understands (more content not included)... Normal [facility] 04-12-2025 CNPN Telephone (RULTTB) MAXIMO NIXON ([id number]) 1940 M Date Time Provider Department 04/12/25 [...] US on 05/23/25 at 2:25 PM at [place]. Allergies As of Date: 04/12/2025 Noted Allergy [...] normal. COMBINED IMPRESSION: Degenerative changes as described. Business Applications Analyst: [facility] Transcribe Date/Time: Apr 16 2025 8:23P [...] normal. COMBINED IMPRESSION: Degenerative changes as described. Business Applications Analyst: PSCB Transcribe Date/Time: Apr 16 2025 8:23P [...] osseous erosion. IMPRESSION: No acute bony abnormality. Business Applications Analyst: MALLY Transcribe Date/Time: Apr 16 2025 8:22P Dictated by : TIMMY QUINN MD This examination was interpreted and the report reviewed and electronically signed by: TIMMY QUINN MD on Apr 16 2025 8:23PM EST [id number] Normal [facility] 04-09-2025 [facility] Telephone (MARA) MAXIMO NIXON ([id number]) 1940 M Date Time Provider Department 04/09/25 [...] Encounter Status:Closed by GAIL KEVIN on 04/09/25 [facility] ([id number]) 1940 M Date Time Provider Department 03/27/25 [...] Encounter Status:Closed by NARCISO JAQUEZ on 04/03/25 [facility] CNOVon 03-20-2025 CNOV Office Visit (UROLMD ) MAXIMO NIXON ([id number]) 1940 M Date Time Provider Department 03/20/25 9:30 AM NARCISO JAQUEZ UROLMD During your visit today, we recorded the following information about you: Pulse Respiration Blood pressure Weight 61/minute 16/minute 170/84 92.5 kg Height 1.854 m Narciso Jaquez MD 03/20/2025 10:17 AM Signed [facility] UROLOGY PROCEDURE NOTE [facility] ([facility]) FLEXIBLE CYSTOURETHROSCOPY AND TRUS UROLOGY OUTPATIENT PROCEDURE NOTE UNIVERSAL PROTOCOL AND SAFETY CHECKLISTUNIVERSAL PROTOCOL / SAFETY CHECKLIST Procedure to be Performed: Cysto/TRUS Referral by: Humberto Dasilva APRN.HOME ENERGY RATER.DNP Indication: Bladder overactivity Sign In: A Moment [...] weeks Narciso Jaquez MD, MS Associate Staff [facility] [place] [facility] Narciso Jaquez MD 03/20/2025 10:02 AM [...] not clear with increased fluids. PHONE NUMBERS: [phone] [place] [phone] [facility] [place] [phone] [facility] Allergies As of Date: 03/20/2025 Noted Allergy Reacti (more content not included)... Normal [facility] ES CYSTOSCOPY (POC) FOR UROL OGY USE ONLYon 03-20-2025 [facility] Radiology Study observation (narrative) [facility] UA DIP, URINE (POC)on 2024 BILIRUBIN UA (POCT) Negative Negative [facility] CLARITY UA (POCT) Clear [facility] COLOR UA (POCT) Yellow [facility] GLUCOSE UA (POCT) Negative Negative mg/dL [facility] Hemoglobin Ql (U) Negative Negative [facility] Interpretation and review of laboratory results Abnormal [facility] KETONE UA (POCT) Negative Negative mg/dL [facility] LEUKOCYTES UA (POCT) Negative Negative [facility] NITRITE UA (POCT) Negative Negative [facility] PH UA (POCT) 5.5 4.5 - 8.0 [facility] Protein Ql (U) Trace Abnormal Negative mg/dL [facility] SPECIFIC GRAVITY UA (POCT) >=1.030 1.005 - 1.030 [facility] UROBILINOGEN UA (POCT) 0.2 Normal E.U./dL [facility] Location:[facility], [address] [place], [address] [facility] POINT OF CARE [facility] US Prostate transrectalon [facility] Radiology Study observation (narrative) [facility] CNOVon 03-15-2025 CNOV Office Visit (FAMPWS ) KRYSTYNAMAXIMO ([id number]) 1940 M Date Time Provider Department 03/15/25 3:00 PM [facility] HUFFMAN [facility] Pierre[facility] During your visit today, we recorded [...] Lymph 1.00 - 4.00 k/uL 1.39 1.26 Ramsey% % 12.4 12.3 Abs Ramsey <0.87 k/uL 0.56 0.50 Eosin% % 2.4 [...] Comment: Speci men Type: BLOOD SPECIMENOrdering Facility: [facility] Address: [address] [place] [address] Performed By: #### 5 7021-8 ####[facility]OWVTLIA [id number] [place] [address] [place] Basophils/100 WBC (Bld) 1.2 % Normal [facility] Comment on above: Order Comment: Speci men Type: BLOOD SPECIMENOrdering Facility: [facility] Address: [address] [place] [address] Performed By: #### 5 7021-8 ####[facility] [id number] [place] [address] [place] Differential cell count method Nom (Bld) Auto Normal [facility] Comment on above: Order Comment: Speci men Type: BLOOD SPECIMENOrdering Facility: [facility] Address: [address] [place] [address] Performed By: #### 5 7021-8 ####[facility] [id number] [place] [address] [place] Eosinophils (Bld) [#/Vol] 0.11 10*3/uL Normal <0.46 [facility] Comment on above: Order Comment: Speci men Type: BLOOD SPECIMENOrdering Facility: [facility] Address: [address] [place] [address] Performed By: #### 5 7021-8 ####[facility] [id number] [place] [address] [place] Eosinophils/100 WBC (Bld) 2.7 % Normal [facility] Comment on above: Order Comment: Speci men Type: BLOOD SPECIMENOrdering Facility: [facility] Address: [address] [place] [address] Performed By: #### 5 7021-8 ####[facility] ROBINSONSOQUELNCLIA [id number] [place] [address] [place] Erythrocyte distribution width (RBC) [Ratio] 13.2 % Normal 11.5-15.0 [facility] Comment on above: Order Comment: Speci men Type: BLOOD SPECIMENOrdering Facility: [facility] Address: [address] [place] [address] Performed By: #### 5 7021-8 ####[facility] [id number] [place] [address] [place] Hematocrit (Bld) [Volume fraction] 48.0 % Normal 39.0-51.0 [facility] Comment on above: Order Comment: Speci men Type: BLOOD SPECIMENOrdering Facility: [facility] Address: [address] [place] [address] Performed By: #### 5 7021-8 ####[facility] [id number] [place] [address] [place] Hemoglobin (Bld) [Mass/Vol] 16.7 g/dL Normal 13.0-17.0 [facility] Comment on above: Order Comment: Speci men Type: BLOOD SPECIMENOrdering Facility: [facility] Address: [address] [place] [address] Performed By: #### 5 7021-8 ####[facility] [id number] [place] [address] [place] Immature granulocytes (Bld) [#/Vol] 10*3/uL Normal <0.10 [facility] Comment on above: Order Comment: Speci men Type: BLOOD SPECIMENOrdering Facility: [facility] Address: [address] [place] [address] Performed By: #### 5 7021-8 ####[facility] [id number] [place] [address] [place] Immature granulocytes/100 WBC (Bld) 0.2 % Normal [facility] Comment on above: Order Comment: Speci men Type: BLOOD SPECIMENOrdering Facility: [facility] Address: [address] [place] [address] Performed By: #### 5 7021-8 ####[facility] [id number] [place] [address] [place] Lymphocytes (Bld) [#/Vol] 1.26 10*3/uL Normal 1.00-4.00 [facility] Comment on above: Order Comment: Speci men Type: BLOOD SPECIMENOrdering Facility: [facility] Address: [address] [place] [address] Performed By: #### 5 7021-8 ####[facility] [id number] [place] [address] [place] Lymphocytes/100 WBC (Bld) 30.9 % Normal [facility] Comment on above: Order Comment: Speci men Type: BLOOD SPECIMENOrdering Facility: [facility] Address: [address] [place] [address] Performed By: #### 5 7021-8 ####[facility] CENTERNCLI [id number] [place] [address] [place] MCH (RBC) [Entitic mass] 32.1 pg Normal 26.0-34.0 [facility] Comment on above: Order Comment: Speci men Type: BLOOD SPECIMENOrdering Facility: [facility] Address: [address] [place] [address] Performed By: #### 5 7021-8 ####[facility]ENTERNCLI [id number] [place] [address] [place] MCHC (RBC) [Mass/Vol] 34.8 g/dL Normal 30.5-36.0 [facility] Comment on above: Order Comment: Speci men Type: BLOOD SPECIMENOrdering Facility: [facility] Address: [address] [place] [address] Performed By: #### 5 7021-8 ####[facility] ROBINSONSOQUELNCLIFeli [id number] [place] [address] [place] MCV (RBC) [Entitic vol] 92.1 fL Normal 80.0-100.0 [facility] Comment on above: Order Comment: Speci men Type: BLOOD SPECIMENOrdering Facility: [facility] Address: [address] [place] [address] Performed By: #### 5 7021-8 ####[facility]ENTERNCLI [id number] [place] [address] [place] Monocytes (Bld) [#/Vol] 0.50 10*3/uL Normal <0.87 [facility] Comment on above: Order Comment: Speci men Type: BLOOD SPECIMENOrdering Facility: [facility] Address: [address] [place] [address] Performed By: #### 5 7021-8 ####[facility]ENTERNCLIA [id number] [place] [address] [place] Monocytes/100 WBC (Bld) 12.3 % Normal [facility] Comment on above: Order Comment: Speci men Type: BLOOD SPECIMENOrdering Facility: [facility] Address: [address] [place] [address] Performed By: #### 5 7021-8 ####[facility] CENTERNCLIA [id number] [place] [address] [place] Neutrophils (Bld) [#/Vol] 2.15 10*3/uL Normal 1.45-7.50 [facility] Comment on above: Order Comment: Speci men Type: BLOOD SPECIMENOrdering Facility: [facility] Address: [address] [place] [address] Performed By: #### 5 7021-8 ####[facility] ROBINSONWNCLIA [id number] [place] [address] [place] Neutrophils/100 WBC (Bld) 52.7 % Normal [facility] Comment on above: Order Comment: Speci men Type: BLOOD SPECIMENOrdering Facility: [facility] Address: [address] [place] [address] Performed By: #### 5 7021-8 ####[facility] [id number] [place] [address] [place] Nucleated RBC (Bld) [#/Vol] 10*3/uL Normal <0.01 [facility] Comment on above: Order Comment: Speci men Type: BLOOD SPECIMENOrdering Facility: [facility] Address: [address] [place] [address] Performed By: #### 5 7021-8 ####[facility] [id number] [place] [address] [place] Nucleated RBC/100 WBC (Bld) [Ratio] 0.0 /100 WBC Normal [facility] Comment on above: Order Comment: Speci men Type: BLOOD SPECIMENOrdering Facility: [facility] Address: [address] [place] [address] Performed By: #### 5 7021-8 ####[facility] [id number] [place] [address] [place] Platelet mean volume (Bld) [Entitic vol] 9.1 fL Normal 9.0-12.7 [facility] Comment on above: Order Comment: Speci men Type: BLOOD SPECIMENOrdering Facility: [facility] Address: [address] [place] [address] Performed By: #### 5 7021-8 ####[facility] [id number] [place] [address] [place] Platelets (Bld) [#/Vol] 197 10*3/uL Normal 150-400 [facility] Comment on above: Order Comment: Speci men Type: BLOOD SPECIMENOrdering Facility: [facility] Address: [address] [place] [address] Performed By: #### 5 7021-8 ####[facility] CENTERNCLINDAA [id number] [place] [address] [place] RBC (Bld) [#/Vol] 5.21 10*6/uL Normal 4.20-6.00 [facility] Comment on above: Order Comment: Speci men Type: BLOOD SPECIMENOrdering Facility: [facility] Address: [address] [place] [address] Performed By: #### 5 7021-8 ####[facility]ENTERNCLIA [id number] [place] [address] [place] WBC (Bld) [#/Vol] 4.08 10*3/uL Normal 3.70-11.00 [facility] Comment on above: Order Comment: Speci men Type: BLOOD SPECIMENOrdering Facility: [facility] Address: [address] [place] [address] Performed By: #### 5 7021-8 ####[facility] CENTERNCLIA [id number] [place] [address] [place] CNOVon 03-03-2025 CNOV Office Visit (UCWSTR ) MAXIMO NIXON ([id number]) 1940 M Date Time Provider Department 03/03/25 2:00 PM AMANDA ZAVALA UCWSTR During your visit today, we recorded the following information about you: Temperature Pulse Respiration Blood pressure 97.3 degrees 68/minute 18/minute 131/81 Weight 93.1 kg Amanda Zavala APRN.HOME ENERGY RATER 03/03/2025 2:54 PM Signed [facility] [...] history is provided by the patient. No foreign language teacher was used. 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 Patient says he has had drainage for many years. This could be a cause for the sore throat due to season changes. Patient agreeable to following up with PCP Amanda Zavala APRN.HOME ENERGY RATER MDM Procedures Allergies As of Date: 03/03/2025 Noted Allergy Reaction LISINOPRIL 04/09/2013 3 - Cough Date Reviewed: 03/03/2025 Reviewed by: Ayla Porras OCCA - Fully Assessed Reason (more content not included)... Normal [facility] STREP A MOLECULAR (POC)on Procedural Control Valid [facility] Strep A (POCT) Negative Negative [facility] CNPNon 02-28-2025 CNPN Telephone (PUMT) MAXIMO NIXON ([id number]) 1940 M Date Time Provider Department 02/28/25 DIEGO HUFFMAN [facility] During your visit today, we recorded [...] BLOOD COUNT AND DIFFERENTIAL [SQCBCDIF] Order #: [id number] FUTURE CARBOXYHEMOGLOBIN ELLE [SQCO] Order #: [id number] FUTURE Prescriptions as of 02/28/2025 - Trospium [...] Comment: Speci men Type: BLOOD SPECIMENOrdering Facility: [facility] Address: [address] [place] [address] Performed By: #### 5 7021-8 ####[facility] ROBINSONWNCLIA [id number] [place] [address] [place] Basophils/100 WBC (Bld) 0.9 % Normal [facility] Comment on above: Order Comment: Speci men Type: BLOOD SPECIMENOrdering Facility: [facility] Address: [address] [place] [address] Performed By: #### 5 7021-8 ####[facility] [id number] [place] [address] [place] Differential cell count method Nom (Bld) Auto Normal [facility] Comment on above: Order Comment: Speci men Type: BLOOD SPECIMENOrdering Facility: [facility] Address: [address] [place] [address] Performed By: #### 5 7021-8 ####[facility] [id number] [place] [address] [place] Eosinophils (Bld) [#/Vol] 0.11 10*3/uL Normal <0.46 [facility] Comment on above: Order Comment: Speci men Type: BLOOD SPECIMENOrdering Facility: [facility] Address: [address] [place] [address] Performed By: #### 5 7021-8 ####[facility] MILLWNCLIA [id number] [place] [address] [place] Eosinophils/100 WBC (Bld) 2.4 % Normal [facility] Comment on above: Order Comment: Speci men Type: BLOOD SPECIMENOrdering Facility: [facility] Address: [address] [place] [address] Performed By: #### 5 7021-8 ####[facility] ROBINSONSOQUELJOHANLIA [id number] [place] [address] [place] Erythrocyte distribution width (RBC) [Ratio] 13.2 % Normal 11.5-15.0 [facility] Comment on above: Order Comment: Speci men Type: BLOOD SPECIMENOrdering Facility: [facility] Address: [address] [place] [address] Performed By: #### 5 7021-8 ####[facility] [id number] [place] [address] [place] Hematocrit (Bld) [Volume fraction] 51.3 % High 39.0-51.0 [facility] Comment on above: Order Comment: Speci men Type: BLOOD SPECIMENOrdering Facility: [facility] Address: [address] [place] [address] Performed By: #### 5 7021-8 ####[facility] [id number] [place] [address] [place] Hemoglobin (Bld) [Mass/Vol] 17.6 g/dL High 13.0-17.0 [facility] Comment on above: Order Comment: Speci men Type: BLOOD SPECIMENOrdering Facility: [facility] Address: [address] [place] [address] Performed By: #### 5 7021-8 ####[facility] [id number] [place] [address] [place] Immature granulocytes (Bld) [#/Vol] 10*3/uL Normal <0.10 [facility] Comment on above: Order Comment: Speci men Type: BLOOD SPECIMENOrdering Facility: [facility] Address: [address] [place] [address] Performed By: #### 5 7021-8 ####[facility] [id number] [place] [address] [place] Immature granulocytes/100 WBC (Bld) 0.4 % Normal [facility] Comment on above: Order Comment: Speci men Type: BLOOD SPECIMENOrdering Facility: [facility] Address: [address] [place] [address] Performed By: #### 5 7021-8 ####[facility] [id number] [place] [address] [place] Lymphocytes (Bld) [#/Vol] 1.39 10*3/uL Normal 1.00-4.00 [facility] Comment on above: Order Comment: Speci men Type: BLOOD SPECIMENOrdering Facility: [facility] Address: [address] [place] [address] Performed By: #### 5 7021-8 ####[facility] [id number] [place] [address] [place] Lymphocytes/100 WBC (Bld) 30.7 % Normal [facility] Comment on above: Order Comment: Speci men Type: BLOOD SPECIMENOrdering Facility: [facility] Address: [address] [place] [address] Performed By: #### 5 7021-8 ####[facility] [id number] [place] [address] [place] MCH (RBC) [Entitic mass] 31.3 pg Normal 26.0-34.0 [facility] Comment on above: Order Comment: Speci men Type: BLOOD SPECIMENOrdering Facility: [facility] Address: [address] [place] [address] Performed By: #### 5 7021-8 ####[facility] [id number] [place] [address] [place] MCHC (RBC) [Mass/Vol] 34.3 g/dL Normal 30.5-36.0 [facility] Comment on above: Order Comment: Speci men Type: BLOOD SPECIMENOrdering Facility: [facility] Address: [address] [place] [address] Performed By: #### 5 7021-8 ####[facility] CENTERTRISTEN [id number] [place] [address] [place] MCV (RBC) [Entitic vol] 91.3 fL Normal 80.0-100.0 [facility] Comment on above: Order Comment: Speci men Type: BLOOD SPECIMENOrdering Facility: [facility] Address: [address] [place] [address] Performed By: #### 5 7021-8 ####[facility]ENTERNCCED[facility] [id number] [place] [address] [place] Monocytes (Bld) [#/Vol] 0.56 10*3/uL Normal <0.87 [facility] Comment on above: Order Comment: Speci men Type: BLOOD SPECIMENOrdering Facility: [facility] Address: [address] [place] [address] Performed By: #### 5 7021-8 ####[facility] [id number] [place] [address] [place] Monocytes/100 WBC (Bld) 12.4 % Normal [facility] Comment on above: Order Comment: Speci men Type: BLOOD SPECIMENOrdering Facility: [facility] Address: [address] [place] [address] Performed By: #### 5 7021-8 ####[facility] CENTERNCLIA [id number] [place] [address] [place] Neutrophils (Bld) [#/Vol] 2.41 10*3/uL Normal 1.45-7.50 [facility] Comment on above: Order Comment: Speci men Type: BLOOD SPECIMENOrdering Facility: [facility] Address: [address] [place] [address] Performed By: #### 5 7021-8 ####[facility] ROBINSONWJOHANLIA [id number] [place] [address] [place] Neutrophils/100 WBC (Bld) 53.2 % Normal [facility] Comment on above: Order Comment: Speci men Type: BLOOD SPECIMENOrdering Facility: [facility] Address: [address] [place] [address] Performed By: #### 5 7021-8 ####[facility] ROBINSONSOQUELJOHANLIA [id number] [place] [address] [place] Nucleated RBC (Bld) [#/Vol] 10*3/uL Normal <0.01 [facility] Comment on above: Order Comment: Speci men Type: BLOOD SPECIMENOrdering Facility: [facility] Address: [address] [place] [address] Performed By: #### 5 7021-8 ####[facility] [id number] [place] [address] [place] Nucleated RBC/100 WBC (Bld) [Ratio] 0.0 /100 WBC Normal [facility] Comment on above: Order Comment: Speci men Type: BLOOD SPECIMENOrdering Facility: [facility] Address: [address] [place] [address] Performed By: #### 5 7021-8 ####[facility]PITALRICH [id number] [place] [address] [place] Platelet mean volume (Bld) [Entitic vol] 9.1 fL Normal 9.0-12.7 [facility] Comment on above: Order Comment: Speci men Type: BLOOD SPECIMENOrdering Facility: [facility] Address: [address] [place] [address] Performed By: #### 5 7021-8 ####[facility] HOSPITALLIA [id number] [place] [address] [place] Platelets (Bld) [#/Vol] 189 10*3/uL Normal 150-400 [facility] Comment on above: Order Comment: Speci men Type: BLOOD SPECIMENOrdering Facility: [facility] Address: [address] [place] [address] Performed By: #### 5 7021-8 ####[facility]LANDOWNCLIA [id number] [place] [address] [place] RBC (Bld) [#/Vol] 5.62 10*6/uL Normal 4.20-6.00 [facility] Comment on above: Order Comment: Speci men Type: BLOOD SPECIMENOrdering Facility: [facility] Address: [address] [place] [address] Performed By: #### 5 7021-8 ####[facility]ENTERNCA [id number] [place] [address] [place] WBC (Bld) [#/Vol] 4.53 10*3/uL Normal 3.70-11.00 [facility] Comment on above: Order Comment: Speci men Type: BLOOD SPECIMENOrdering Facility: [facility] Address: [address] [place] [address] Performed By: #### 5 7021-8 ####[facility]ENTERNCLIA [id number] [place] [address] [place] Comprehensive metabolic 2000 panelon 02-27-2025 Albumin [Mass/Vol] 4.2 g/dL Normal 3.9-4.9 [facility] Comment on above: Order Comment: Speci men Type: BLOOD SPECIMENOrdering Facility: [facility] Address: [address] [place] [address] Performed By: #### 2 4323-8 ####[facility]ENTERNCLIA [id number] [place] [address] [place] ALP [Catalytic activity/Vol] 65 U/L Normal 38-113 [facility] Comment on above: Order Comment: Speci men Type: BLOOD SPECIMENOrdering Facility: [facility] Address: [address] [place] [address] Performed By: #### 2 4323-8 ####[facility] ROBINSONArikNCLIA [id number] [place] [address] [place] ALT [Catalytic activity/Vol] 12 U/L Normal 10-54 [facility] Comment on above: Order Comment: Speci men Type: BLOOD SPECIMENOrdering Facility: [facility] Address: [address] [place] [address] Performed By: #### 2 4323-8 ####[facility] CENTERNCA [id number] [place] [address] [place] Anion gap [Moles/Vol] 6 mmol/L Low 8-15 [facility] Comment on above: Order Comment: Speci men Type: BLOOD SPECIMENOrdering Facility: [facility] Address: [address] [place] [address] Performed By: #### 2 4323-8 ####[facility] CENTERNCLIA [id number] [place] [address] [place] AST [Catalytic activity/Vol] 20 U/L Normal 14-40 [facility] Comment on above: Order Comment: Speci men Type: BLOOD SPECIMENOrdering Facility: [facility] Address: [address] [place] [address] Performed By: #### 2 4323-8 ####[facility] CENTERNCLIA [id number] [place] [address] [place] Bilirubin [Mass/Vol] 0.8 mg/dL Normal 0.2-1.[address] [facility] Comment on above: Order Comment: Speci men Type: BLOOD SPECIMENOrdering Facility: [facility] Address: [address] [place] [address] Performed By: #### 2 4323-8 ####[facility] RADHA MILLTOWNCLIA [id number] [place] [address] [place] Calcium [Mass/Vol] 9.3 mg/dL Normal 8.5-10.2 [facility] Comment on above: Order Comment: Speci men Type: BLOOD SPECIMENOrdering Facility: [facility] Address: [address] [place] [address] Performed By: #### 2 4323-8 ####[facility] MILLTOWNCLIA [id number] [place] [address] [place] Chloride [Moles/Vol] 105 mmol/L Normal 98-[address] [facility] Comment on above: Order Comment: Speci men Type: BLOOD SPECIMENOrdering Facility: [facility] Address: [address] [place] [address] Performed By: #### 2 4323-8 ####[facility]ITALLIA [id number] [place] [address] [place] CO2 [Moles/Vol] 28 mmol/L Normal 22-30 [facility] Comment on above: Order Comment: Speci men Type: BLOOD SPECIMENOrdering Facility: [facility] Address: [address] [place] [address] Performed By: #### 2 4323-8 ####[facility] MILLWNCLIA [id number] [place] [address] [place] Creatinine [Mass/Vol] 1.09 mg/dL Normal 0.73-1.22 [facility] Comment on above: Order Comment: Speci men Type: BLOOD SPECIMENOrdering Facility: [facility] Address: [address] [place] [address] Performed By: #### 2 4323-8 ####[facility]ENTERNCLIA [id number] [place] [address] [place] Creatinine and Glomerular filtration rate.predicted panel (S/P/Bld) 68 mL/min/1.73m??? Normal >=60 [facility] Comment on above: Order Comment: Tiesha maxwell Type: BLOOD SPECIMENOrdering Facility: [facility] Address: [address] [place] [address] Result Comment: Svetlana mated Glomerular Filtration Rate [...] actual GFR. Performed By: #### 2 4323-8 ####[facility] [id number] [place] [address] [place] Glucose [Mass/Vol] 96 mg/dL Normal 74-99 [facility] Comment on above: Order Comment: Tiesha maxwell Type: BLOOD SPECIMENOrdering Facility: [facility] Address: [address] [place] [address] Result Comment: The [place] Diabetes Association (ADA) provides guidance for cutoff [...] Standards of Medical Care in Diabetes 2016, [place] Diabetes Association. Diabetes Care. 2016.39(Suppl 1). Performed By: #### 2 4323-8 ####[facility]ENTERN[facility]ED[facility] [id number] [place] [address] [place] Potassium [Moles/Vol] 4.3 mmol/L Normal 3.7-5.1 [facility] Comment on above: Order Comment: Speci men Type: BLOOD SPECIMENOrdering Facility: [facility] Address: [address] [place] [address] Performed By: #### 2 4323-8 ####[facility] ROBINSONWNCLIA [id number] [place] [address] [place] Protein [Mass/Vol] 6.8 g/dL Normal 6.3-8.0 [facility] Comment on above: Order Comment: Speci men Type: BLOOD SPECIMENOrdering Facility: [facility] Address: [address] [place] [address] Performed By: #### 2 4323-8 ####[facility] CENTERNCLIA [id number] [place] [address] [place] Sodium [Moles/Vol] 139 mmol/L Normal 136-144 [facility] Comment on above: Order Comment: Speci men Type: BLOOD SPECIMENOrdering Facility: [facility] Address: [address] [place] [address] Performed By: #### 2 4323-8 ####[facility] CENTERNCLIA [id number] [place] [address] [place] Urea nitrogen [Mass/Vol] 17 mg/dL Normal 9-24 [facility] Comment on above: Order Comment: Speci men Type: BLOOD SPECIMENOrdering Facility: [facility] Address: [address] [place] [address] Performed By: #### 2 4323-8 ####[facility] CENTERNCLIA [id number] [place] [address] [place] Lipid 1996 panelon 5 Cholesterol [Mass/Vol] 107 mg/dL Normal <200 [facility] Comment on above: Order Comment: Speci men Type: BLOOD SPECIMENOrdering Facility: [facility] Address: [address] [place] [address] Result Comment: <200 mg/dL, Desirable 200-239 mg/dL, Borderline high >239 mg/dL, High Performed By: #### 2 4331-1 ####[facility] LABCLIA [id number] [address] [address] [facility] [id number] [place] [address] [place] Cholesterol in HDL [Mass/Vol] 56 mg/dL Normal >39 [facility] Comment on above: Order Comment: Speci men Type: BLOOD SPECIMENOrdering Facility: [facility] Address: [address] [place] [address] Result Comment: 40-5 9 mg/dL, Acceptable >59 mg/dL, High: Negative risk factor for coronary heart disease <40 mg/dL, Low: Positive risk factor for coronary heart disease Performed By: #### 2 4331-1 ####[facility] LABCLIA [id number] [address] [id number] [place] [address] [place] Cholesterol in LDL [Mass/Vol] 41 mg/dL Normal <100 [facility] Comment on above: Order Comment: Speci men Type: BLOOD SPECIMENOrdering Facility: [facility] Address: [address] [place] [address] Result Comment: <100 mg/dL, Optimal 100-129 mg/dL, Near optimal/above optimal 130-159 mg/dL, Borderline high 160-189 mg/dL, High >189 mg/dL, Very high Secondary prevention optimal LDL Cholesterol levels are recommended to be < 70 mg/dL Performed By: #### 2 4331-1 ####[facility] LABIA [id number] [address] [address] [facility] [id number] [place] [address] [place] Cholesterol in LDL/Cholesterol in HDL [Mass ratio] 0.73 {ratio} Normal <2.54 [facility] Comment on above: Order Comment: Speci men Type: BLOOD SPECIMENOrdering Facility: [facility] Address: [address] [place] [address] Result Comment: Aleisha martinez: 1. National Cholesterol Education Program ATP III Guideline At-A-Glance Quick Desk Reference: National Heart, Lung, and Blood [place]. National Institutes of Health. 2001: NIH Publication No. 01-3305. 2. An International Atherosclerosis Society position paper: global recommendations for the management of dyslipidemia: executive summary, Atherosclerosis. 2014: 232(2):410-413. Performed By: #### 2 4331-1 ####[facility] LABCLIA [id number] [id number] [place] [address] OF [facility] Cholesterol in VLDL [Mass/Vol] 10 mg/dL Normal <30 [facility] Comment on above: Order Comment: Speci men Type: BLOOD SPECIMENOrdering Facility: [facility] Address: [address] [place] [address] Performed By: #### 2 4331-1 ####[facility] LABCLIA [id number] [address] [id number] [place] [address] [place] OF [facility] Cholesterol non HDL [Mass/Vol] 51 mg/dL Normal <130 [facility] Comment on above: Order Comment: Speci men Type: BLOOD SPECIMENOrdering Facility: [facility] Address: [address] [place] [address] Result Comment: <130 mg/dL, Optimal 130-159 mg/dL, Near optimal/above optimal 160-189 mg/dL, Borderline high 190-219 mg/dL, High >219 mg/dL, Very high Secondary prevention optimal non HDL Cholesterol levels are recommended to be <100 mg/dL Performed By: #### 2 4331-1 ####[facility] LABCLIA [id number] [address] [place] [address] [place] [id number] [place] [address] [place] Cholesterol.total/Ch olesterol in HDL [Mass ratio] 1.91 {ratio} Normal <5.10 [facility] Comment on above: Order Comment: Speci men Type: BLOOD SPECIMENOrdering Facility: [facility] Address: [address] [place], [place] [address] Performed By: #### 2 4331-1 ####[facility] LABCLIA [id number] [address], [facility] [place] [id number] [place] [address] FASTING TIME 12 hrs Normal [facility] Comment on above: Order Comment: Speci men Type: BLOOD SPECIMENOrdering Facility: [facility] Address: [address] [place], [place] [address] Performed By: #### 2 4331-1 ####[facility] LABCLIA [id number] [address] [place] [address] [facility] [id number] [place] [address] [place] Triglyceride [Mass/Vol] 50 mg/dL Normal <150 [facility] Comment on above: Order Comment: Speci men Type: BLOOD SPECIMENOrdering Facility: [facility] Address: [address] [place] [address] Result Comment: <150 mg/dL, Normal 150-199 mg/dL, Borderline high 200-499 mg/dL, High >499 mg/dL, Very high Performed By: #### 2 4331-1 ####[facility] LABCLIA [id number] [address] [place] [address] [facility] RADHA [facility] CAMPUSNCLI [id number] [place] [address] [facility] CNOVon 02-18-2025 CNOV Office Visit (UROLWS ) MAXIMO NIXON ([id number]) 1940 M Date Time Provider Department 02/18/25 [...] Dasilva APRN.KIANA MANUEL 02/18/2025 9:31 AM Signed [facility] MALE PATIENT - [...] (POC)on 2024 BILIRUBIN UA (POCT) Negative Negative [facility] CLARITY UA (POCT) Clear [facility] COLOR UA (POCT) Dark yellow [facility] GLUCOSE UA (POCT) Negative Negative mg/dL [facility] Hemoglobin Ql (U) Negative Negative [facility] KETONE UA (POCT) Negative Negative mg/dL [facility] LEUKOCYTES UA (POCT) Negative Negative [facility] NITRITE UA (POCT) Negative Negative [facility] PH UA (POCT) 6 4.5 - 8.0 [facility] Protein Ql (U) Negative Negative mg/dL [facility] SPECIFIC GRAVITY UA (POCT) 1.025 1.005 - 1.030 [facility] UROBILINOGEN UA (POCT) 1 Normal E.U./dL [facility] Location:[facility], [address], [place], [place], [id number] [place] [address] POINT OF CARE [facility] ECHOon 01-25-2025 Echocardiography Echocardiography Rep ort: Transthoracic Echo [facility] Date of service: 01/25/2025 1:58:36 PM [facility]UST[facility] Ordering physician: LYNETTE PATEL Indication: Mitral Valve [...] * * * Final * * * [employer] : [id number] Normal [facility] CNOVon 01-22-2025 CNOV Office Visit (UCWSTR ) MAXIMO NIXON ([id number]) 1940 M Date Time Provider Department 01/22/25 10:30 AM SEBASTIAN HERNANDEZ [facility] During your visit today, we recorded the following information about you: Temperature Pulse Respiration Blood pressure 99.1 degrees 80/minute 16/minute 122/66 Weight 93.1 kg Sebastian Hernandez PA-C 01/22/2025 11:35 AM Signed This note was created using [employer]. Subjective Maximo Nixon is a 84 year [...] Diagnosis:Influenza A [J10.1] Order(s):XR CHEST 2V FRONTAL/LAT [[id number]] Order #: [id number]. #:[id number] [facility] INFLUENZA AANDB MOLECULAR (POC) [[id number]] Order #: [id number]. #:[id number] oseltamivir (TAMIFLU) 75 mg capsuleTake 1 [...] 01-22-2025 Flu A (POCT) Positive Abnormal Negative [facility] Comment on above: Location:[address], [place], [address] Interpretation and review of laboratory results Abnormal [facility] Procedural Control Valid [facility] Location:[address], [place], [address] [facility] POINT OF CARE [facility] XR CHEST 2V FRONTAL/LATon XR CHEST [...] fracture deformities. IMPRESSION: No acute radiographic abnormality. Business Applications Analyst: [facility] Transcribe Date/Time: Jan 22 2025 11:20A Dictated by : OMAR MAGANA MD This examination was interpreted and the report reviewed and electronically signed by: OMAR MAGANA MD on Jan 22 2025 11:21AM EST [id number] Normal [facility] XR Chest PA and Lateralon IMPRESSION: No acute radiographic abnormality. Business Applications Analyst: [facility] Transcribe Date/Time: Jan 22 2025 11:20A Dictated [...] deformities. DIVISION OF RADIOLOGY Provider, [facility] - 01/22/2025 * * *Final Report* * [...] deformities. IMPRESSION IMPRESSION: No acute radiographic abnormality. Business Applications Analyst: [facility] Transcribe Date/Time: Jan 22 2025 11:20A Dictated by : OMAR MAGANA MD This examination was interpreted and the report reviewed and electronically signed by: OMAR MAGANA MD on Jan 22 2025 11:21AM EST [facility] Radiology Study observation (narrative) [facility] XR Chest PA and LateralOrder ed By: Cc Provider on 01-22-2025 [facility] CNOVon 01-07-2025 CNOV Office Visit (UROLWS ) MAXIMO NIXON ([id number]) 1940 M Date Time Provider Department 01/07/25 1:30 PM CORNELIUS DASILVA During your visit today, we recorded the following information about you: Pulse Blood pressure Weight Height 62/minute 132/79 93.4 kg 1.88 m Cornelius Dasilva APRN.[employer]ATER, DNP 01/07/2025 2:02 PM Signed [facility] MALE PATIENT - [...] CNOV Office Visit (CARDMM ) MAXIMO NIXON ([id number]) 1940 M Date Time Provider Department 12/27/24 2:20 PM LYNETTE PATEL During your visit today, we recorded the following information about you: Pulse Blood pressure Weight Height 62/minute 142/74 92.3 kg 1.88 m Lynette Patel MD 12/27/2024 3:02 PM Signed [facility] [place] SECTION OF REGIONAL CARDIOLOGY OUTPATIENT VISIT DATE 12/27/2024 OUTPATIENT VISIT TYPE NEW PRIMARY CARE PHYSICIAN: Diego Huffman [address] [place] [address] Patient is being seen at the request [...] mmHg. PHT 119, trace TR, 1-2+AR, 1+ TN, asc Ao 3.6 PAST MEDICAL HISTORY Diagnosis [...] air cells, likely inflammatory. Lynette Patel MD, [facility] Allergies As of Date: 12/27/2024 Noted Allergy [...] and inner ear complexes, without abnormal enhancement. Business Applications Analyst: [facility] Transcribe Date/Time: Dec 19 2024 3:21P Dictated by : TIMMY SRINIVASAN MD This examination was interpreted and the report reviewed and electronically signed by: TIMMY SRINIVASAN MD on Dec 19 2024 3:27PM [facility] DIVISION OF RADIOLOGY * * *Final Report* [...] tissues are unremarkable. DIVISION OF RADIOLOGY [facility] * * *Final Report* * [...] and inner ear complexes, without abnormal enhancement. Business Applications Analyst: MALLY Transcribe Date/Time: Dec 19 2024 3:21P Dictated by : TIMMY SRINIVASAN MD This examination was interpreted and the report reviewed and electronically signed by: TIMMY SRINIVASAN MD on Dec 19 2024 3:27PM EST [facility] Radiology Study observation (narrative) [facility] MR Brain WO and W contrast I VOrdered By: [facility] Provider on 12-19-2024 [facility] MRI BRAIN WO/W IVCONon 12-19 MRI BRAIN WO/W IVCON * * *Final Report* * * DATE OF EXAM: Dec 19 2024 2:05PM [facility] 0295 - MRI BRAIN WO/W IVCON / [...] and inner ear complexes, without abnormal enhancement. Business Applications Analyst: [facility] Transcribe Date/Time: Dec 19 2024 3:21P Dictated by : TIMMY SRINIVASAN MD This examination was interpreted and the report reviewed and electronically signed by: TIMMY SRINIVASAN MD on Dec 19 2024 3:27PM EST [id number] Normal [facility] CNOVon 12-10-2024 CNOV Office Visit (OTOLMM ) MAXIMO NIXON ([id number]) 1940 M Date Time Provider Department 12/10/24 [...] electronic medical record. Referring Provider: DIEGO HUFFMAN [[id number]] Allergies As of Date: 12/10/2024 Noted Allergy [...] (post-nasal drip) [R09.82] Order(s):MRI BRAIN WO/W IVCON [[id number]] Order #: [id number] FUTURE iv contrast (will be provided with [...] EachRfl: 0 CREATININE BLD [SQCRET] Order #: [id number] FUTURE Prescriptions as of 12/10/2024 - iv [...] CNOV Office Visit (OTAUME ) MAXIMO NIXON ([id number]) 1940 M Date Time Provider Department 12/10/24 2:00 PM ANI LIU During your visit today, we recorded the following information about you: Ani Liu, YUSEF 12/10/2024 5:35 PM Signed [facility] [place] AUDIOLOGIC EVALUATION REPORT Name: Maximo Nixon [facility]#: [id number] Date of Service: 12/10/2024 Date of : [...] week ago. Noise exposure: worked in a [employer]-no hearing protection lawn equipment. History of chemotherapy [...] evaluation of middle ear function. CPT code: 49455 RIGHT EAR: Normal ME pressure with enhanced TM compliance (mobility). LEFT EAR: Normal ME pressure with enhanced TM compliance (mobility). ACOUSTIC REFLEXES Description of procedure: This test is an objective measure of auditory and facial nerve pathways. CPT code: 67917, 98972 RIGHT EAR PROBE EAR: (ipsi right stimulus [...] bone conduction and speech recognition testing. CPT code:96093 RIGHT EAR: Hearing Sensitivity: WNL sloping to [...] strategies to enhance communication ability. * Call [phone] to schedule an appointment to assess your need for hearing aids. Request a HAE appointment. * Encouraged patient to reach out to insurance provider to determine if they are eligible for a hearing aid benefit. Patient was advised that if they return to [facility], the cost of hearing aids would likely be [id number]. Yusef Marquez, [facility] Clinical and Senior Hearing Implant Supervisor [employer] copied to: Rosa Elena Ramon MD DUMONT Abbrev- iation Definition Degree of hearing sensitivity dB range WNL within normal limits WNL 0 - 20 SNHL sensorineural hearing loss Mild 20 (more content not included)... Normal [facility] HEARING TEST/AUDIOGRAMon [facility] CNOVon 11-06-2024 CNOV Office Visit (PODIWS ) MAXIMO NIXON ([id number]) 1940 M Date Time Provider Department 11/06/24 [...] CNOV Office Visit (UROLWS ) MAXIMO NIXON ([id number]) 1940 M Date Time Provider Department 10/08/24 [...] Dasilva APRN.KIANA MANUEL 10/08/2024 2:10 PM Signed [facility] MALE PATIENT - [...] (POC)on 2023 BILIRUBIN UA (POCT) Negative Negative [facility] CLARITY UA (POCT) Clear [facility] COLOR UA (POCT) Yellow [facility] GLUCOSE UA (POCT) Negative Negative mg/dL [facility] Hemoglobin Ql (U) Negative Negative [facility] KETONE UA (POCT) Negative Negative mg/dL [facility] LEUKOCYTES UA (POCT) Negative Negative [facility] NITRITE UA (POCT) Negative Negative [facility] PH UA (POCT) 5.5 4.5 - 8.0 [facility] Protein Ql (U) Negative Negative mg/dL [facility] SPECIFIC GRAVITY UA (POCT) >=1.030 1.005 - 1.030 [facility] UROBILINOGEN UA (POCT) 1.0 Normal E.U./dL [facility] Location:[facility], [address], [place], [place], [id number] [place] [address] POINT OF CARE [facility] ([id number]) 1940 M Date Time Provider Department 10/03/24 [facility] During your visit today, we recorded the [...] Encounter Status:Closed by ROSARIO HAUSER on 10/03/24 [facility] CNOVdeacon 09-26-2024 CNOV Office Visit (FAMPWS ) MAXIMO NIXON ([id number]) 1940 M Date Time Provider Department 09/26/24 [...] calcaneal enthesophyte. IMPRESSION: No acute bony abnormality. Business Applications Analyst: MALLY Transcribe Date/Time: Oct 02 2024 2:35P Dictated by : TIMMY QUINN MD This examination was interpreted and the report reviewed and electronically signed by: TIMMY QUINN MD on Oct 02 2024 2:36PM EST [id number] Normal [facility] CNOVon 09-14-2024 CNOV Office Visit (FAMPWS ) MAXIMO NIXON ([id number]) 1940 M Date Time Provider Department 09/14/24 [...] CNOV Office Visit (FAMPWS ) MAXIMO NIXON ([id number]) 1940 M Date Time Provider Department 08/29/24 [...] to the emergency room. He presented to [facility] on 08/27/2024 with complaints of lightheadedness [...] (Patient not taking: Reported on 04/02/2024) Ipratropium Jennings (ATROVENT) 21 mcg (0.03 %) nasal spray [...] 12 Lead EKGon 08-27-2024 12 Lead EKG [facility] Cardiovascular Services [address] [place] [address] 12 Lead EKG 08/27/24 1838 MR#: [id number] Acct: [id number] Name: MAXIMO NIXON Rep #: [id number] : 1940 84 From: Guillermo Trivedi MD [...] 424 ms Unusual P axis and short TN, probable junctional rhythm Left axis deviation Minimal voltage criteria for LVH, may be normal variant ( R in aVL ) Abnormal ECG Confirmed by GUILLERMO TRIVEDI MD ([id number]), film and video editor JIMENA RUSSELL ([id number]) on 08/28/2024 8:50:52 AM Referred By: Confirmed By:GUILLERMO TRIVEDI MD 08/28/24 0850 Date Guillermo Trivedi MD CC: Dr. Juan Luis Hughes, ; Dr. Diego Huffman MD Signed Normal [facility] Basic Metabolic Profile (BMP )on 08-27-2024 BUN/CRE 17.5 RATIO Normal 10-20 [facility] Comment on above: Order Comment: 'TROP ' Serial specimen #1, #2 or #3: 1 Performed By: #### L 500.2500, L100.0100, L501.4020 #### [facility] [address] [place], [address] CA,Total 8.7 mg/dL Normal 8.5-10.1 [facility] Comment on above: Order Comment: 'TROP ' Serial specimen #1, #2 or #3: 1 Performed By: #### L 500.2500, L100.0100, L501.4020 #### [facility] [address] [place], [address] Chloride [Moles/Vol] 109 mmol/L High 98-107 [facility] Comment on above: Order Comment: 'TROP ' Serial specimen #1, #2 or #3: 1 Performed By: #### L 500.2500, L100.0100, L501.4020 #### [facility] [address] [place], [address] CO2 [Moles/Vol] 29.0 mmol/L Normal 21.0-32.0 [facility] Comment on above: Order Comment: 'TROP ' Serial specimen #1, #2 or #3: 1 Performed By: #### L 500.2500, L100.0100, L501.4020 #### [facility] [address] [place], [address] Creatinine [Mass/Vol] 1.20 mg/dL Normal 0.70-1.30 [facility] Comment on above: Order Comment: 'TROP ' Serial specimen #1, #2 or #3: 1 Result Comment: The validity of the calculated GFR GFRAA in patients over 70 years has not been determined. Clinical correlation is essential. Performed By: #### L 500.2500, L100.0100, L501.4020 #### [facility] [address] [place], [address] ECRCL 52.09 ml/min Normal [facility] Comment on above: Order Comment: 'TROP ' Serial specimen #1, #2 or #3: 1 Performed By: #### L 500.2500, L100.0100, L501.4020 #### [facility] [address] [place], [address] EST GFR - AA 75 mL/min Normal >60 [facility] Comment on above: Order Comment: 'TROP ' Serial specimen #1, #2 or #3: 1 Result Comment: Afri can Syrian GFR Calc Performed By: #### L 500.2500, L100.0100, L501.4020 #### [facility] [address] [place], [address] GAP 6 Normal 5-15 [facility] Comment on above: Order Comment: 'TROP ' Serial specimen #1, #2 or #3: 1 Performed By: #### L 500.2500, L100.0100, L501.4020 #### [facility] [address] [place], [address] GFR/1.73 sq M.predicted among non-blacks MDRD (S/P/Bld) [Vol rate/Area] 62 mL/min/{1.73_m2} Normal >60 [facility] Comment on above: Order Comment: 'TROP ' Serial specimen #1, #2 or #3: 1 Result Comment: Non- GFR Calc Performed By: #### L 500.2500, L100.0100, L501.4020 #### [facility] [address] [place], [address] Glucose [Mass/Vol] 109 mg/dL High 74-106 [facility] Comment on above: Order Comment: 'TROP ' Serial specimen #1, #2 or #3: 1 Result Comment: Fast ing Glucose result from 100 to 125 mg/dL suggests IMPAIRED HOMEOSTASIS per A.D.A. criteria. Performed By: #### L 500.2500, L100.0100, L501.4020 #### [facility] [address] [place], [address] Potassium [Moles/Vol] 3.9 mmol/L Normal 3.5-5.1 [facility] Comment on above: Order Comment: 'TROP ' Serial specimen #1, #2 or #3: 1 Performed By: #### L 500.2500, L100.0100, L501.4020 #### [facility] [address] [place], [address] Sodium [Moles/Vol] 144 mmol/L Normal 136-145 [facility] Comment on above: Order Comment: 'TROP ' Serial specimen #1, #2 or #3: 1 Performed By: #### L 500.2500, L100.0100, L501.4020 #### [facility] [address] [place], [address] Urea nitrogen [Mass/Vol] 21 mg/dL High 7-18 [facility] Comment on above: Order Comment: 'TROP ' Serial specimen #1, #2 or #3: 1 Performed By: #### L 500.2500, L100.0100, L501.4020 #### [facility] [address] [place], [address] CBC W/Diff, Automatedon 09-3 0-2023 Absolute Lymph 1.45 X10 3/uL Normal 0.83-4.51 [facility] Comment on above: Performed By: #### L 500.2500, L100.0100, L501.4020 #### [facility] [address] [place], [address] Absolute Neut 3.0 X10 3/uL Normal 2.0-7.7 [facility] Comment on above: Performed By: #### L 500.2500, L100.0100, L501.4020 #### [facility] [address] [place], [address] Basophils/100 WBC (Bld) 0.9 % Normal 0-1 [facility] Comment on above: Performed By: #### L 500.2500, L100.0100, L501.4020 #### [facility] [address] [place], [address] Eosinophils/100 WBC (Bld) 3.0 % Normal 0-5 [facility] Comment on above: Performed By: #### L 500.2500, L100.0100, L501.4020 #### [facility] [address] [place], [address] Erythrocyte distribution width (RBC) [Ratio] 13.2 % Normal 11.6-14.6 [facility] Comment on above: Performed By: #### L 500.2500, L100.0100, L501.4020 #### [facility] [address] [place], [address] Hematocrit (Bld) [Volume fraction] 46.1 % Normal 40-54 [facility] Comment on above: Performed By: #### L 500.2500, L100.0100, L501.4020 #### [facility] [address] [place], [address] Hemoglobin (Bld) [Mass/Vol] 15.6 g/dL Normal 13.0-16.5 [facility] Comment on above: Performed By: #### L 500.2500, L100.0100, L501.4020 #### [facility] [address] [place], [address] IG% 0.600 Normal 0.0-0.9 [facility] Comment on above: Result Comment: IG% - Immature Granulocytes (promyelocytes, myelocytes and metamyelocytes) > 1% indicates that a LEFT SHIFT is Present. Performed By: #### L 500.2500, L100.0100, L501.4020 #### [facility] [address] [place], [address] Lymphocytes/100 WBC (Bld) 26.8 % Normal 19-41 [facility] Comment on above: Performed By: #### L 500.2500, L100.0100, L501.4020 #### [facility] [address] [place], [address] MCH (RBC) [Entitic mass] 31.9 pg Normal 27.0-32.0 [facility] Comment on above: Performed By: #### L 500.2500, L100.0100, L501.4020 #### [facility] [address] [place], [address] MCHC (RBC) [Mass/Vol] 33.8 g/dL Normal 32-36 [facility] Comment on above: Performed By: #### L 500.2500, L100.0100, L501.4020 #### [facility] [address] [place], [address] MCV (RBC) [Entitic vol] 94.3 fL High 80-94 [facility] Comment on above: Performed By: #### L 500.2500, L100.0100, L501.4020 #### [facility] [address] [place], [address] Monocytes/100 WBC (Bld) 12.8 % High 0-10 [facility] Comment on above: Performed By: #### L 500.2500, L100.0100, L501.4020 #### [facility] [address] [place], [address] Neutrophils/100 WBC (Bld) 55.9 % Normal 47-70 [facility] Comment on above: Performed By: #### L 500.2500, L100.0100, L501.4020 #### [facility] [address] [place], [address] Nucleated RBC (Bld) [#/Vol] 0 10*3/uL Normal 0-5 [facility] Comment on above: Performed By: #### L 500.2500, L100.0100, L501.4020 #### [facility] [address] [place], [address] Platelet mean volume (Bld) [Entitic vol] 9.6 fL Normal 6.2-12.0 [facility] Comment on above: Performed By: #### L 500.2500, L100.0100, L501.4020 #### [facility] [address] [place], [address] Platelets (Bld) [#/Vol] 186 10*3/uL Normal 150-450 [facility] Comment on above: Performed By: #### L 500.2500, L100.0100, L501.4020 #### [facility] [address] [place], [address] RBC (Bld) [#/Vol] 4.89 10*6/uL Normal 4.6-6.2 [facility] Comment on above: Performed By: #### L 500.2500, L100.0100, L501.4020 #### [facility] [address] [place], [address] RDW SD 45.9 fl High 35.1-43.9 [facility] Comment on above: Performed By: #### L 500.2500, L100.0100, L501.4020 #### [facility] [address] [place], [address] WBC (Bld) [#/Vol] 5.4 10*3/uL Normal 4.4-11.0 [facility] Comment on above: Performed By: #### L 500.2500, L100.0100, L501.4020 #### [facility] [address] [place], [address] CNOVon 08-27-2024 CNOV Office Visit (UCWSTR ) MAXIMO NIXON ([id number]) 1940 M Date Time Provider Department 08/27/24 4:45 PM [facility] During your visit today, we recorded [...] FIBRE ORAL) Take by mouth. - Ipratropium Jennings (ATROVENT) 21 mcg (0.03 %) nasal spray [...] Department Summary on 08-27-2024 Emergency Department Summary [facility] Medical Records Department [address] [place] [address] Emergency Department Summary 08/27/24 MR#: [id number] Acct: [id number] Name: MAXIMO NIXON Rep #: [id number] : 1940 84 From: Juan Luis Hughes [...] Patient denies any changes in his hearing. [facility] Medical History (Updated 08/27/24 @ 22:10 by [...] CBC will (more content not included)... Normal [facility] L501.4020on 08-27-2024 TROPONIN-I HS 11 pg/mL Normal 3.0-78.0 [facility] Comment on above: Order Comment: 'TROP ' Serial specimen #1, #2 or #3: 1 Result Comment: Roly parsons Note: New Test Units and Gender Specific Reference Ranges. For more information see Policy Stat Procedure [place] High Sensitivity Troponin (TNIH) and attachments. Performed By: #### L 500.2500, L100.0100, L501.4020 #### [facility] [address] [place], [address] Urinalysis, Completeon 08-27 BACTERIA 1+ /hpf Normal None Seen [facility] Comment on above: Order Comment: CLEAN CATCH Performed By: #### L 400.0001 #### [facility] [address] [place], [address] WBC 5-10 SEEN Normal 0-5 [facility] Comment on above: Order Comment: CLEAN CATCH Performed By: #### L 400.0001 #### [facility] [address] [place], [address] EPI,SQUAMOUS 0 SEEN Normal 0-[address] [place] [address] Comment on above: Order Comment: CLEAN CATCH Performed By: #### L 400.0001 #### [facility] [address] [place], [address] Mucus Ql (Urine sed) 0 SEEN Normal [facility] Comment on above: Order Comment: CLEAN CATCH Performed By: #### L 400.0001 #### [facility] [address] [place], [address] RBC 0 SEEN Normal 0-5 [facility] Comment on above: Order Comment: CLEAN CATCH Performed By: #### L 400.0001 #### [facility] [place], [address] CNOVon 07-31-2024 CNOV Office Visit (FAMPWS ) MAXIMO NIXON ([id number]) 1940 M Date Time Provider Department 07/31/24 2:20 PM [facility] During your visit today, we recorded the [...] 65+ YR, HIGH DOSE, TRIVALENT (FLUZONE HIGH-DOSE) [[id number]] Order #: [id number] Prescriptions as of 07/31/2024 - amLODIPine (NORVASC) 2.5 mg tablet Take 1 tablet by mouth once daily. - nystatin (MYCOSTATIN) cream Apply 1 application to affected area two times a day. - nutritional supplement/fiber (JUICE PLUS FIBRE ORAL) Take by mouth. - Ipratropium Jennings (ATROVENT) 21 mcg (0.03 %) nasal spray [...] 2022 BILIRUBIN UA (POCT) Negative Negative [facility] CLARITY UA (POCT) Clear [facility] COLOR UA (POCT) Dark yellow [facility] GLUCOSE UA (POCT) Negative Negative mg/dL [facility] Hemoglobin Ql (U) Negative Negative [facility] KETONE UA (POCT) Negative Negative mg/dL [facility] LEUKOCYTES UA (POCT) Negative Negative [facility] NITRITE UA (POCT) Negative Negative [facility] PH UA (POCT) 5.5 4.5 - 8.0 [facility] Protein Ql (U) Negative Negative mg/dL [facility] SPECIFIC GRAVITY UA (POCT) 1.025 1.005 - 1.030 [facility] UROBILINOGEN UA (POCT) 1.0 E.U./dL Normal E.U./dL [facility] UA DIP, URINE (POC)on 2022 BILIRUBIN UA (POCT) Negative Negative [facility] CLARITY UA (POCT) Clear [facility] COLOR UA (POCT) Dark yellow [facility] GLUCOSE UA (POCT) Negative Negative mg/dL [facility] HEMOGLOBIN/BLOOD UA (POCT) Negative Negative [facility] KETONE UA (POCT) Negative Negative mg/dL [facility] LEUKOCYTES UA (POCT) Negative Negative [facility] NITRITE UA (POCT) Negative Negative [facility] PH UA (POCT) 5.5 4.5 - 8.0 [facility] Protein Ql (U) Negative Negative mg/dL [facility] SPECIFIC GRAVITY UA (POCT) >=1.030 1.005 - 1.030 [facility] UROBILINOGEN UA (POCT) 0.2 E.U./dL Normal E.U./dL [facility] XR Knee - right 4 Viewson IMPRESSION: No acute osseous abnormality Business Applications Analyst: MALLY Transcribe Date/Time: Mar 03 2023 1:03P Dictated by : YOGESH ALBRIGHT MD This examination was interpreted and the report reviewed and electronically signed by: YOGESH ALBRIGHT MD on Mar 03 2023 1:08PM [facility]ISION OF RADIOLOGY * * *Final Report* [...] left knee prosthesis. DIVISION OF RADIOLOGY Provider, [facility] Addison Petty - 03/03/2023 * * [...] prosthesis. IMPRESSION IMPRESSION: No acute osseous abnormality Business Applications Analyst: [facility] Transcribe Date/Time: Mar 03 2023 1:03P Dictated by : YOGESH ALBRIGHT MD This examination was interpreted and the report reviewed and electronically signed by: YOGESH ALBRIGHT MD on Mar 03 2023 1:08PM EST [facility] XR Knee - right 4 ViewsOrder ed By: [facility] Provider on 03-03-2023 [facility] XR Knee - right 4 Viewson Radiology Study observation (narrative) [facility] No Panel InformationOrdered By: [facility] Provider on 07-07-2022 [facility] No Panel Informationon 07-07 Radiology Study observation (narrative) [facility] XR Knee - right 4 Viewson IMPRESSION: Stable bilateral total knee arthroplasties Business Applications Analyst: [facility] Transcribe Date/Time: Jul 07 2022 10:17A [...] seen. ZZZ_DO_NOT_ USE_DIVISIO N OF RADIOLOGY Provider, [facility] - 07/07/2022 * * *Final Report* * [...] IMPRESSION IMPRESSION: Stable bilateral total knee arthroplasties Business Applications Analyst: MALLY Transcribe Date/Time: Jul 07 2022 10:17A Dictated by : PRAKASH MAN DO This examination was interpreted and the report reviewed and electronically signed by: PRAKASH MAN DO on Jul 07 2022 10:17AM EST [facility] XR Shoulder - left 3 Viewson 07-07-2022 IMPRESSION: Degenerative changes in the cervical spine and LEFT shoulder as discussed Business Applications Analyst: MALLY Transcribe Date/Time: Jul 07 2022 10:18A [...] seen. ZZZ_DO_NOT_ USE_DIVISIO N OF RADIOLOGY Provider, [facility] - 07/07/2022 * * *Final Report* * [...] cervical spine and LEFT shoulder as discussed Business Applications Analyst: MALLY Transcribe Date/Time: Jul 07 2022 10:18A Dictated by : PRAKASH MAN DO This examination was interpreted and the report reviewed and electronically signed by: PRAKASH MAN DO on Jul 07 2022 10:18AM EST [facility] US THYROID/PARATHYROIDon [facility] No Panel InformationOrdered By: [facility] Provider on 04-16-2022 [facility] No Panel Informationon 04-16 Radiology Study observation (narrative) [facility] XR Chest PA and Lateralon IMPRESSION: Stable exam without acute findings. Business Applications Analyst: MALLY Transcribe Date/Time: Apr 16 2022 3:37P [...] IMPRESSION IMPRESSION: Stable exam without acute findings. Business Applications Analyst: [facility] Transcribe Date/Time: Apr 16 2022 3:37P Dictated by : GILBERTO WIN MD This examination was interpreted and the report reviewed and electronically signed by: GILBERTO WIN MD on Apr 16 2022 3:39PM EST [facility] XR Neck AP and Lateralon IMPRESSION: No soft tissue abnormality identified. Business Applications Analyst: PSC[facility] Transcribe Date/Time: Apr 16 2022 3:38P [...] fracture. ZZZ_DO_NOT_ USE_DIVISIO N OF RADIOLOGY Provider, [facility] - 04/16/2022 * * *Final Report* * [...] IMPRESSION IMPRESSION: No soft tissue abnormality identified. Business Applications Analyst: [facility] Transcribe Date/Time: Apr 16 2022 3:38P Dictated by : STANLEY CURRY MD This examination was interpreted and the report reviewed and electronically signed by: STANLEY CURRY MD on Apr 16 2022 3:39PM EST [facility] CBC W Auto Differential pane l (Bld)on 03-02-2022 Basophils (Bld) [#/Vol] 0.04 10*3/uL Normal <0.11 [facility] Comment on above: Order Comment: Speci men Type: BLOOD SPECIMEN Ordering Facility: [facility] Address: [address] [place] [id number] Performed By: #### 5 7021-8 #### [facility] CLIA [id number] [address] [place] Basophils/100 WBC (Bld) 0.9 % Normal [facility] Comment on above: Order Comment: Speci men Type: BLOOD SPECIMEN Ordering Facility: [facility] Address: [address] [place] [address] Performed By: #### 5 7021-8 #### [facility] CLIA [id number] [address] [place] Differential cell count method Nom (Bld) Auto Normal [facility] Comment on above: Order Comment: Speci men Type: BLOOD SPECIMEN Ordering Facility: [facility] Address: [address] [place] [address] Performed By: #### 5 7021-8 #### [facility] CLIA [id number] [address] [place] Eosinophils (Bld) [#/Vol] 0.10 10*3/uL Normal <0.46 [facility] Comment on above: Order Comment: Speci men Type: BLOOD SPECIMEN Ordering Facility: [facility] Address: [address] [place] [address] Performed By: #### 5 7021-8 #### [facility] CLIA [id number] [address] Eosinophils/100 WBC (Bld) 2.3 % Normal [facility] Comment on above: Order Comment: Speci men Type: BLOOD SPECIMEN Ordering Facility: [facility] Address: [address] [place] [address] Performed By: #### 5 7021-8 #### [facility] CLIA [id number] [address] [place] Erythrocyte distribution width (RBC) [Ratio] 13.2 % Normal 11.5-15.0 [facility] Comment on above: Order Comment: Speci men Type: BLOOD SPECIMEN Ordering Facility: [facility] Address: [address] [place] [address] Performed By: #### 5 7021-8 #### [facility] CLIA [id number] [address] [place] Hematocrit (Bld) [Volume fraction] 46.8 % Normal 39.0-51.0 [facility] Comment on above: Order Comment: Speci men Type: BLOOD SPECIMEN Ordering Facility: [facility] Address: [address] [place] [address] Performed By: #### 5 7021-8 #### [facility] CLIA [id number] [address] Hemoglobin (Bld) [Mass/Vol] 16.0 g/dL Normal 13.0-17.0 [facility] Comment on above: Order Comment: Speci men Type: BLOOD SPECIMEN Ordering Facility: [facility] Address: [address] [place] [address] Performed By: #### 5 7021-8 #### [facility] CLIA [id number] [address] IMMATURE GRAN % 0.5 % Normal [facility] Comment on above: Order Comment: Speci men Type: BLOOD SPECIMEN Ordering Facility: [facility] Address: [address] [place] [address] Performed By: #### 5 7021-8 #### [facility] CLIA [id number] [address] IMMATURE GRAN ABS <0.03 Normal <0.10 [facility] Comment on above: Order Comment: Speci men Type: BLOOD SPECIMEN Ordering Facility: [facility] Address: [address] [place] [address] Performed By: #### 5 7021-8 #### [facility] CLIA [id number] [address] Lymphocytes (Bld) [#/Vol] 1.56 10*3/uL Normal 1.00-4.00 [facility] Comment on above: Order Comment: Speci men Type: BLOOD SPECIMEN Ordering Facility: [facility] Address: [address] [place] [address] Performed By: #### 5 7021-8 #### [facility] CLIA [id number] [address] Lymphocytes/100 WBC (Bld) 36.3 % Normal [facility] Comment on above: Order Comment: Speci men Type: BLOOD SPECIMEN Ordering Facility: [facility] Address: [address] [place] [address] Performed By: #### 5 7021-8 #### [facility] CLIA [id number] [address] MCH (RBC) [Entitic mass] 31.9 pg Normal 26.0-34.0 [facility] Comment on above: Order Comment: Speci men Type: BLOOD SPECIMEN Ordering Facility: [facility] Address: [address] [place] [address] Performed By: #### 5 7021-8 #### [facility] CLIA [id number] [address] MCHC (RBC) [Mass/Vol] 34.2 g/dL Normal 30.5-36.0 [facility] Comment on above: Order Comment: Speci men Type: BLOOD SPECIMEN Ordering Facility: [facility] Address: [address] [place] [address] Performed By: #### 5 7021-8 #### [facility] CLIA [id number] [address] MCV (RBC) [Entitic vol] 93.4 fL Normal 80.0-100.0 [facility] Comment on above: Order Comment: Speci men Type: BLOOD SPECIMEN Ordering Facility: [facility] Address: [address] [place] [address] Performed By: #### 5 7021-8 #### [facility] CLIA [id number] [address] Monocytes (Bld) [#/Vol] 0.39 10*3/uL Normal <0.87 [facility] Comment on above: Order Comment: Speci men Type: BLOOD SPECIMEN Ordering Facility: [facility] Address: [address] [place] [address] Performed By: #### 5 7021-8 #### [facility] CLIA [id number] 1000 [place] [address] [place] Monocytes/100 WBC (Bld) 9.1 % Normal [facility] Comment on above: Order Comment: Speci men Type: BLOOD SPECIMEN Ordering Facility: [facility] Address: [address] [place] [address] Performed By: #### 5 7021-8 #### [facility] CLIA [id number] 1000 [place] [address] [place] Neutrophils (Bld) [#/Vol] 2.19 10*3/uL Normal 1.45-7.50 [facility] Comment on above: Order Comment: Speci men Type: BLOOD SPECIMEN Ordering Facility: [facility] Address: [address] [place] [address] Performed By: #### 5 7021-8 #### [facility] CLIA [id number] [address] [place] Neutrophils/100 WBC (Bld) 50.9 % Normal [facility] Comment on above: Order Comment: Speci men Type: BLOOD SPECIMEN Ordering Facility: [facility] Address: [address] [place] [address] Performed By: #### 5 7021-8 #### [facility] CLIA [id number] [address] [place] Nucleated RBC (Bld) [#/Vol] 10*3/uL Normal <0.01 [facility] Comment on above: Order Comment: Speci men Type: BLOOD SPECIMEN Ordering Facility: [facility] Address: [address] [place] [address] Performed By: #### 5 7021-8 #### [facility] CLIA [id number] [address] [place] Nucleated RBC/100 WBC (Bld) [Ratio] 0.0 /100 WBC Normal [facility] Comment on above: Order Comment: Speci men Type: BLOOD SPECIMEN Ordering Facility: [facility] Address: [address] [place] [address] Performed By: #### 5 7021-8 #### [facility] CLIA [id number] [address] Platelet mean volume (Bld) [Entitic vol] 9.2 fL Normal 9.0-12.7 [facility] Comment on above: Order Comment: Speci men Type: BLOOD SPECIMEN Ordering Facility: [facility] Address: [address] [place] [address] Performed By: #### 5 7021-8 #### [facility] CLIA [id number] [address] [place] Platelets (Bld) [#/Vol] 198 10*3/uL Normal 150-400 [facility] Comment on above: Order Comment: Speci men Type: BLOOD SPECIMEN Ordering Facility: [facility] Address: [address] [place] [address] Performed By: #### 5 7021-8 #### [facility] CLIA [id number] [address] RBC (Bld) [#/Vol] 5.01 10*6/uL Normal 4.20-6.00 [facility] Comment on above: Order Comment: Speci men Type: BLOOD SPECIMEN Ordering Facility: [facility] Address: [address] [place] [address] Performed By: #### 5 7021-8 #### [facility] CLIA [id number] [address] WBC (Bld) [#/Vol] 4.30 10*3/uL Normal 3.70-11.00 [facility] Comment on above: Order Comment: Speci men Type: BLOOD SPECIMEN Ordering Facility: [facility] Address: [address] [place] [address] Performed By: #### 5 7021-8 #### [facility] CLIA [id number] [address] Comprehensive metabolic 2000 panelon 03-02-2022 Albumin [Mass/Vol] 4.1 g/dL Normal 3.9-4.9 [facility] Comment on above: Order Comment: Speci men Type: BLOOD SPECIMEN Ordering Facility: [facility] Address: [address] [address] Performed By: #### [place], [address]-3 #### [facility] CLIA [id number] [address] ALP [Catalytic activity/Vol] 70 U/L Normal 38-113 [facility] Comment on above: Order Comment: Speci men Type: BLOOD SPECIMEN Ordering Facility: [facility] Address: [address] [place] [address] Performed By: #### [place], 15247-6 #### [facility] CLIA [id number] [address] STATES [facility] ALT [Catalytic activity/Vol] 17 U/L Normal 10-54 [facility] Comment on above: Order Comment: Speci men Type: BLOOD SPECIMEN Ordering Facility: [facility] Address: [address] [place] [address] Performed By: #### T NT, #### [facility] CLIA [id number] [address] STATES [facility] Anion gap [Moles/Vol] 8 mmol/L Low 9-18 [facility] Comment on above: Order Comment: Speci men Type: BLOOD SPECIMEN Ordering Facility: [facility] Address: [address] [place] [address] Performed By: #### T NT, #### [facility] CLIA [id number] [address] STATES [facility] AST [Catalytic activity/Vol] Normal [facility] Comment on above: Order Comment: Speci men Type: BLOOD SPECIMEN Ordering Facility: [facility] Address: [address] [place] [address] Result Comment: Unab le to assay due to interference from hemolysis. Suggest reorder as clinically indicated. Performed By: #### T NT, 43232-2 #### [facility] CLIA [id number] [address] [place] Bilirubin [Mass/Vol] 0.5 mg/dL Normal 0.2-1.3 [facility] Comment on above: Order Comment: Speci men Type: BLOOD SPECIMEN Ordering Facility: [facility] Address: [address] [place] [address] Performed By: #### T NT, #### [facility] CLIA [id number] [address] [place] Calcium [Mass/Vol] 9.4 mg/dL Normal 8.5-10.2 [facility] Comment on above: Order Comment: Speci men Type: BLOOD SPECIMEN Ordering Facility: [facility] Address: [address] [place] [address] Performed By: #### T NT, #### [facility] CLIA [id number] [address] [place] [address] [place] Chloride [Moles/Vol] 104 mmol/L Normal 97-105 [facility] Comment on above: Order Comment: Speci men Type: BLOOD SPECIMEN Ordering Facility: [facility] Address: [address] [place] [address] Performed By: #### T NT, #### [facility] CLIA [id number] [address] [place] [address] [place] CO2 [Moles/Vol] 30 mmol/L Normal 22-30 [facility] Comment on above: Order Comment: Speci men Type: BLOOD SPECIMEN Ordering Facility: [facility] Address: [address] [place] [address] Performed By: #### T NT, #### [facility] CLIA [id number] [address] [place] [address] [place] Creatinine [Mass/Vol] 1.01 mg/dL Normal 0.73-1.22 [facility] Comment on above: Order Comment: Speci men Type: BLOOD SPECIMEN Ordering Facility: [facility] Address: [address] [place] [address] Performed By: #### T NT, #### [facility] CLIA [id number] [address] [place] ESTIMATED GLOMERULAR FILTRATION RATE 76 mL/min/1.73m??? Normal >=60 [facility] Comment on above: Order Comment: Tiesha maxwell Type: BLOOD SPECIMEN Ordering Facility: [facility] Address: [address] [place], [place] [id number] Result Comment: Svetlana mated Glomerular Filtration Rate [...] actual GFR. Performed By: #### T [place], 68727-6 #### [facility] CLIA [id number] [address] [place] [address] [place] Glucose [Mass/Vol] 124 mg/dL High 74-99 [facility] Comment on above: Order Comment: Tiesha maxwell Type: BLOOD SPECIMEN Ordering Facility: [facility] Address: [address] [place] [address] Result Comment: The [place] [employer] (ADA) provides guidance for cutoff [...] Standards of Medical Care in Diabetes 2016, [place] [employer]. Diabetes Care. 2016.39(Suppl 1). Performed By: #### T NT, 83833-2 #### [facility] CLIA [id number] [address] [place] [address] [place] Potassium [Moles/Vol] 4.9 mmol/L Normal 3.7-5.1 [facility] Comment on above: Order Comment: Tiesha maxwell Type: BLOOD SPECIMEN Ordering Facility: [facility] Address: [address] [facility] [address] Performed By: #### T NT, 15241-4 #### [facility] CLIA [id number] [address] STATES [facility] Protein [Mass/Vol] 6.7 g/dL Normal 6.3-8.0 [facility] Comment on above: Order Comment: Speci men Type: BLOOD SPECIMEN Ordering Facility: [facility] Address: [address] [place] [address] Performed By: #### T NT, #### [facility] CLIA [id number] [address] [place] Sodium [Moles/Vol] 142 mmol/L Normal 136-144 [facility] Comment on above: Order Comment: Speci men Type: BLOOD SPECIMEN Ordering Facility: [facility] Address: [address] [place] [address] Performed By: #### T NT, #### [facility] CLIA [id number] [address] Urea nitrogen [Mass/Vol] 18 mg/dL Normal 9-24 [facility] Comment on above: Order Comment: Speci men Type: BLOOD SPECIMEN Ordering Facility: [facility] Address: [address] [place] [address] Performed By: #### T NT, #### [facility] CLIA [id number] [address] D dimer FEU PPP-mCncon 03-02 Fibrin D-dimer FEU (PPP) [Mass/Vol] 240 ng/mL FEU Normal <500 [facility] Comment on above: Order Comment: Speci men Type: BLOOD SPECIMEN Ordering Facility: [facility] Address: [address] [place] [address] Performed By: #### 4 8065-7 #### [facility] CLIA [id number] [address] [place] ED NOTEon 03-02-2022 ED NOTE HNO ID: [id number] Author: Priscilla Kelly RN Service: Nursing Author [...] all personal belongings exiting the facility. Normal [facility] ED NOTE HNO ID: [id number] Author: Edilma Gagnon RN Service: Nursing Author Type: Registered Nurse Type: ED Notes Filed: 03/02/2022 5:48 PM Note Text: Patient was moving into a new home on Tuesday and had some chest pain. Patient states that it went away and did not return. He saw his PCP and EKG was WNL, however d-dimer was elevated. Placed on con't monitoring. Normal [facility] ED PROV NOTEon 03-02-2022 ED PROV NOTE HNO ID: [id number] Author: Orlando Green PA-C Service: ? Author Type: Physician Datawarehouse Developer Type: ED Provider Notes Filed: 03/02/2022 7:21 PM Note Text: [facility] EMERGENCY DEPARTMENT ENCOUnter Pt Name: [...] dry. N (more content not included)... Normal [facility] Fibrin D-dimer FEU (PPP) [Ma ss/Vol]on 03-02-2022 D DIMER AGE-RELATED CUTOFF 790 ng/mL FEU Normal [facility] Comment on above: Order Comment: Speci men Type: BLOOD SPECIMEN Ordering Facility: [facility] Address: [address] [place] [phone] Performed By: #### 4 8065-7 #### [facility] CLIA [id number] [address] [place] [address] [place] No Panel Informationon 03-02 D-Dimer Quantitative (PE/DVT) 3.95 FEU/ug/m 0.27-0.49 [facility] Work Phone: Comment on above: D-Dimer ELEVATED (>0 .49): Additional studies and clinicalassessments are indicated to conclude diagnosis of:Deep Vein Thrombosis (DVT) or Pulmonary Embolism (PE)CRITICAL VALUE VERIFIED. CALLED TO CADEN GUZMAN03/02/22 1648 Prakash Zamora.RESULTS READ BACK BY SAME . TROPONIN Ton 03-02-2022 Troponin T.cardiac [Mass/Vol] ug/L Normal 0.000-0.029 [facility] Comment on above: Order Comment: Speci men Type: BLOOD SPECIMEN Ordering Facility: [facility] Address: [address] [place] [phone] Performed By: #### T NT, 49076-9 #### [facility] CLIA [id number] [address] [place] [address] [facility] [place] XR CHEST 2V FRONTAL/LATon [facility] XR Chest PA and Lateralon IMPRESSION: No acute cardiopulmonary disease identified. Business Applications Analyst: MALLY Transcribe Date/Time: Mar 02 2022 3:54P Dictated by : STANLEY CURRY MD This examination was interpreted and the report reviewed and electronically signed by: STANLEY CURRY MD on Mar 02 2022 3:55PM [facility] * * *Final Report* [...] the thoracic spine. DIVISION OF RADIOLOGY Provider, [facility] [place] - 03/02/2022 * * *Final Report* * [...] IMPRESSION IMPRESSION: No acute cardiopulmonary disease identified. Business Applications Analyst: MALLY Transcribe Date/Time: Mar 02 2022 3:54P Dictated by : STANLEY CURRY MD This examination was interpreted and the report reviewed and electronically signed by: STANLEY CURRY MD on Mar 02 2022 3:55PM EST [facility] Radiology Study observation (narrative) [facility] XR Chest PA and LateralOrder ed By: [facility] Provider on 03-02-2022 [facility] OCT MACULA CIRRUS OU (BOTH E YES) [facility] Vital Signs Date Time Vital Sign Value Performing Clinician Vijay cabrera 05-01-2025 13:15-0400 Body height 183.9 cm Pulm Wstr Work Phone: [facility] 05-01-2025 13:15-0400 Body mass index (BMI) [Ratio] 27.23 kg/m2 Pulm Wstr Work Phone: [facility] 05-01-2025 13:15-0400 Body weight 92.08 kg Pulm Wstr Work Phone: [facility] 05-01-2025 13:15-0400 Heart rate 66 /min Pulm Wstr Work Phone: [facility] 05-01-2025 13:15-0400 Respiratory rate 14 /min Pulm Wstr Work Phone: [facility] 05-01-2025 13:15-0400 SaO2% (BldA) [Mass fraction] 95 % Pulm Wstr Work Phone: [facility] 04-26-2025 14:52-0400 Body mass index (BMI) [Ratio] 26.78 kg/m2 Diego Huffman MD Work Phone: [facility] 04-26-2025 14:52-0400 Body weight 92.08 kg Diego Huffman MD Work Phone: [facility] 04-26-2025 14:52-0400 Diastolic blood pressure 72 mm[Hg] Diego Huffman MD Work Phone: [facility] 04-26-2025 14:52-0400 Heart rate 92 /min Diego Huffman MD Work Phone: [facility] 04-26-2025 14:52-0400 SaO2% (BldA) [Mass fraction] 95 % Diego Huffman MD Work Phone: [facility] 04-26-2025 14:52-0400 Systolic blood pressure 110 mm[Hg] Diego Huffman MD Work Phone: [facility] 04-23-2025 11:10-0400 Body height 185.4 cm Stacie Coyner MULTIPLE KNIFE EDGE TRIMMER OPERATOR.CN P Work Phone: [facility] 04-23-2025 11:10-0400 Body mass index (BMI) [Ratio] 26.91 kg/m2 Stacie Coyner MULTIPLE KNIFE EDGE TRIMMER OPERATOR.HOME ENERGY RATER Work Phone: [facility] 04-23-2025 11:10-0400 Body weight 92.53 kg Stacie Coyner MULTIPLE KNIFE EDGE TRIMMER OPERATOR.CN P Work Phone: [facility] 03-20-2025 09:16-0400 Body height 185.4 cm Narciso Jaquez MD Work Phone: [facility] 03-20-2025 09:16-0400 Body mass index (BMI) [Ratio] 26.91 kg/m2 Narciso Jaquez MD Work Phone: [facility] 03-20-2025 09:16-0400 Body weight 92.53 kg Narciso Jaquez MD Work Phone: [facility] 03-20-2025 09:16-0400 Diastolic blood pressure 84 mm[Hg] Narciso Jaquez MD Work Phone: [facility] 03-20-2025 09:16-0400 Heart rate 61 /min Narciso Jaquez MD Work Phone: [facility] 03-20-2025 09:16-0400 Respiratory rate 16 /min Narciso Jaquez MD Work Phone: [facility] 03-20-2025 09:16-0400 SaO2% (BldA) [Mass fraction] 96 % Narciso Jaquez MD Work Phone: [facility] 03-20-2025 09:16-0400 Systolic blood pressure 170 mm[Hg] Narciso Jaquez MD Work Phone: [facility] 03-15-2025 14:43-0400 Body height 185.4 cm Diego Huffman MD Work Phone: [facility] 03-15-2025 14:43-0400 Body mass index (BMI) [Ratio] 27.18 kg/m2 Diego Huffman MD Work Phone: [facility] 03-15-2025 14:43-0400 Body weight 93.44 kg Diego Huffman MD Work Phone: [facility] 03-15-2025 14:43-0400 Diastolic blood pressure 74 mm[Hg] Diego Huffman MD Work Phone: [facility] 03-15-2025 14:43-0400 Heart rate 67 /min Diego Huffman MD Work Phone: [facility] 03-15-2025 14:43-0400 Systolic blood pressure 131 mm[Hg] Diego Huffman MD Work Phone: [facility] 03-03-2025 14:04-0400 Body mass index (BMI) [Ratio] 27.08 kg/m2 Amanda Zavala APRN.HOME ENERGY RATER Work Phone: [facility] 03-03-2025 14:04-0400 Body temperature 97.3 [degF] Amanda Zavala APRN.HOME ENERGY RATER Work Phone: [facility] 03-03-2025 14:04-0400 Body weight 93.1 kg Amanda Zavala APRN.HOME ENERGY RATER Work Phone: [facility] 03-03-2025 14:04-0400 Diastolic blood pressure 81 mm[Hg] Amanda Zavala APRN.HOME ENERGY RATER Work Phone: [facility] 03-03-2025 14:04-0400 Heart rate 68 /min Amanda Zavala APRN.HOME ENERGY RATER Work Phone: [facility] 03-03-2025 14:04-0400 Respiratory rate 18 /min Amanda Zavala APRN.HOME ENERGY RATER Work Phone: [facility] 03-03-2025 14:04-0400 SaO2% (BldA) [Mass fraction] 96 % Amanda Zavala APRN.HOME ENERGY RATER Work Phone: [facility] 03-03-2025 14:04-0400 Systolic blood pressure 131 mm[Hg] Amanda Zavala APRN.HOME ENERGY RATER Work Phone: [facility] 02-18-2025 09:00-0400 Body height 185.4 cm Cornelius Dasilva APRN.HOME ENERGY RATER , DNP Work Phone: [facility] 02-18-2025 09:00-0400 Body mass index (BMI) [Ratio] 26.91 kg/m2 Cornelius Dasilva APRN.HOME ENERGY RATER, DNP Work Phone: [facility] 02-18-2025 09:00-0400 Body temperature 97.39 [degF] Cornelius Dasilva APRN.HOME ENERGY RATER , DNP Work Phone: [facility] 02-18-2025 09:00-0400 Body weight 92.53 kg Cornelius Dasilva APRN.HOME ENERGY RATER , DNP Work Phone: [facility] 02-18-2025 09:00-0400 Diastolic blood pressure 84 mm[Hg] Cornelius Dasilva APRN.[facility], DNP Work Phone: [facility] Comment on above: Cornelius notified of blood pressure. Alla byrne took medications at 0730. 02-18-2025 09:00-0400 Heart rate 68 /min Cornelius Dasilva APRN.HOME ENERGY RATER , DNP Work Phone: [facility] 02-18-2025 09:00-0400 Respiratory rate 14 /min Cornelius Dasilva APRN.[facility] , DNP Work Phone: [facility] 02-18-2025 09:00-0400 SaO2% (BldA) [Mass fraction] 94 % Cornelius Dasilva APRN.HOME ENERGY RATER, DNP Work Phone: [facility] 02-18-2025 09:00-0400 Systolic blood pressure 158 mm[Hg] Cornelius Dasilva APRN.[facility] Work Phone: [facility] Comment on above: Cornelius notified of blood pressure. Alla byrne took medications at 0730. 01-22-2025 10:42-0500 Body mass index (BMI) [Ratio] 26.35 kg/m2 Sebastian Clutter PA-C Work Phone: [facility] 01-22-2025 10:42-0500 Body temperature 99.1 [degF] Sebastian Clutter PA-C Work Phone: [facility] 01-22-2025 10:42-0500 Body weight 93.1 kg Sebastian Clutter PA-C Work Phone: [facility] 01-22-2025 10:42-0500 Diastolic blood pressure 66 mm[Hg] Sebastian Clutter PA-C Work Phone: [facility] 01-22-2025 10:42-0500 Heart rate 80 /min Sebastian Clutter PA-C Work Phone: [facility] 01-22-2025 10:42-0500 Respiratory rate 16 /min Sebastian Clutter PA-C Work Phone: [facility] 01-22-2025 10:42-0500 SaO2% (BldA) [Mass fraction] 97 % Sebastian Hernandez PA-C Work Phone: [facility] 01-22-2025 10:42-0500 Systolic blood pressure 122 mm[Hg] Sebastian Hernandez PA-C Work Phone: [facility] 01-07-2025 12:45-0500 Body height 188 cm Cornelius Dasilva APRN.HOME ENERGY RATER , DNP Work Phone: [facility] 01-07-2025 12:45-0500 Body mass index (BMI) [Ratio] 26.45 kg/m2 Cornelius Dasilva APRN.HOME ENERGY RATER, DNP Work Phone: [facility] 01-07-2025 12:45-0500 Body weight 93.44 kg Cornelius Dasilva APRN.HOME ENERGY RATER , DNP Work Phone: [facility] 01-07-2025 12:45-0500 Diastolic blood pressure 79 mm[Hg] Cornelius Dasilva APRN.HOME ENERGY RATER, DNP Work Phone: [facility] 01-07-2025 12:45-0500 Heart rate 62 /min Cornelius Dasilva APRN.HOME ENERGY RATER , DNP Work Phone: [facility] 01-07-2025 12:45-0500 Systolic blood pressure 132 mm[Hg] Cornelius Dasilva APRN.HOME ENERGY RATER, DNP Work Phone: [facility] 12-27-2024 14:21-0500 Body height 188 cm Lynette Patel MD Work Phone: [facility] 12-27-2024 14:21-0500 Body mass index (BMI) [Ratio] 26.13 kg/m2 Lynette Patel MD Work Phone: [facility] 12-27-2024 14:21-0500 Body weight 92.3 kg Lynette Patel MD Work Phone: [facility] 12-27-2024 14:21-0500 Diastolic blood pressure 74 mm[Hg] Lynette Patel MD Work Phone: [facility] 12-27-2024 14:21-0500 Heart rate 62 /min Lynette Patel MD Work Phone: [facility] 12-27-2024 14:21-0500 SaO2% (BldA) [Mass fraction] 96 % Lynette Patel MD Work Phone: [facility] 12-27-2024 14:21-0500 Systolic blood pressure 142 mm[Hg] Lynette Patel MD Work Phone: [facility] 10-08-2024 13:29-0500 Body height 182.9 cm Cornelius Dasilva APRN.[facility] [employer] Work Phone: [facility] 10-08-2024 13:29-0500 Body mass index (BMI) [Ratio] 27.94 kg/m2 Cornelius Dasilva APRN.CNP, DNP Work Phone: [facility] 10-08-2024 13:29-0500 Body temperature 97.59 [degF] Cornelius Dasilva APRN.CNP, DNP Work Phone: [facility] 10-08-2024 13:29-0500 Body weight 93.44 kg Cornelius Dasilva APRN.CNP, DNP Work Phone: [facility] 10-08-2024 13:29-0500 Diastolic blood pressure 76 mm[Hg] Cornelius Dasilva APRN.CNP, DNP Work Phone: [facility] Comment on above: Cornelius notified of blood pressure- patie nt denies pain anywhere but states he has been more stressed with and her cognitive deficits. 10-08-2024 13:29-0500 Heart rate 66 /min Cornelius Dasilva APRN.CNP, DNP Work Phone: [facility] 10-08-2024 13:29-0500 Respiratory rate 14 /min Cornelius Dasilva APRN.CNP, DNP Work Phone: [facility] 10-08-2024 13:29-0500 SaO2% (BldA) [Mass fraction] 94 % Cornelius Dasilva APRN.HOME ENERGY RATER, DNP Work Phone: [facility] 10-08-2024 13:29-0500 Systolic blood pressure 148 mm[Hg] Cornelius Dasilva APRN.HOME ENERGY RATER, DNP Work Phone: [facility] Comment on above: Cornelius notified of blood pressure- patiyung nt denies pain anywhere but states he has been more stressed with and her cognitive deficits. 09-26-2024 16:05-0400 Body height 188 cm Diego Huffman MD Work Phone: [facility] 09-26-2024 16:05-0400 Body mass index (BMI) [Ratio] 26.06 kg/m2 Diego Huffman MD Work Phone: [facility] 09-26-2024 16:05-0400 Body weight 92.08 kg Diego Huffman MD Work Phone: [facility] 09-26-2024 16:05-0400 Diastolic blood pressure 70 mm[Hg] Diego Huffman MD Work Phone: [facility] 09-26-2024 16:05-0400 Heart rate 72 /min Diego Huffman MD Work Phone: [facility] 09-26-2024 16:05-0400 SaO2% (BldA) [Mass fraction] 95 % Diego Huffman MD Work Phone: [facility] 09-26-2024 16:05-0400 Systolic blood pressure 126 mm[Hg] Diego Huffman MD Work Phone: [facility] 09-14-2024 10:37-0400 Body height 188 cm Diego Huffman MD Work Phone: [facility] 09-14-2024 10:37-0400 Body mass index (BMI) [Ratio] 25.99 kg/m2 Diego Huffman MD Work Phone: [facility] 09-14-2024 10:37-0400 Body weight 91.81 kg Diego Huffman MD Work Phone: [facility] 09-14-2024 10:37-0400 Diastolic blood pressure 86 mm[Hg] Diego Huffman MD Work Phone: [facility] 09-14-2024 10:37-0400 Heart rate 63 /min Diego Huffman MD Work Phone: [facility] 09-14-2024 10:37-0400 SaO2% (BldA) [Mass fraction] 98 % Diego Huffman MD Work Phone: [facility] 09-14-2024 10:37-0400 Systolic blood pressure 134 mm[Hg] Diego Huffman MD Work Phone: [facility] 08-29-2024 13:15-0400 Body mass index (BMI) [Ratio] 25.81 kg/m2 Ana Resendez MULTIPLE KNIFE EDGE TRIMMER OPERATOR.HOME ENERGY RATER Work Phone: [facility] 08-29-2024 13:15-0400 Body weight 91.17 kg Ana Resendez MULTIPLE KNIFE EDGE TRIMMER OPERATOR.HOME ENERGY RATER Work Phone: [facility] 08-29-2024 13:15-0400 Diastolic blood pressure 82 mm[Hg] Ana Resendez MULTIPLE KNIFE EDGE TRIMMER OPERATOR.HOME ENERGY RATER Work Phone: [facility] 08-29-2024 13:15-0400 Heart rate 59 /min Ana Resendez MULTIPLE KNIFE EDGE TRIMMER OPERATOR.HOME ENERGY RATER Work Phone: [facility] 08-29-2024 13:15-0400 Respiratory rate 16 /min Ana Resendez MULTIPLE KNIFE EDGE TRIMMER OPERATOR.HOME ENERGY RATER Work Phone: [facility] 08-29-2024 13:15-0400 SaO2% (BldA) [Mass fraction] 96 % Ana Resendez MULTIPLE KNIFE EDGE TRIMMER OPERATOR.HOME ENERGY RATER Work Phone: [facility] 08-29-2024 13:15-0400 Systolic blood pressure 142 mm[Hg] Ana Resendez MULTIPLE KNIFE EDGE TRIMMER OPERATOR.HOME ENERGY RATER Work Phone: [facility] 04-02-2024 10:57-0400 Body height 188 cm Cornelius Dasilva MULTIPLE KNIFE EDGE TRIMMER OPERATOR.HOME ENERGY RATER , DNP Work Phone: [facility] 04-02-2024 10:57-0400 Body mass index (BMI) [Ratio] 26.58 kg/m2 Cornelius Dasilva APRN.HOME ENERGY RATER, DNP Work Phone: [facility] 04-02-2024 10:57-0400 Body weight 93.89 kg Cornelius Steffany SKAGGS.HOME ENERGY RATER , DNP Work Phone: [facility] 03-12-2024 11:00-0400 Diastolic blood pressure 82 mm[Hg] Diego Huffman MD Work Phone: [facility] 03-12-2024 11:00-0400 Systolic blood pressure 136 mm[Hg] Diego Huffman MD Work Phone: [facility] 03-12-2024 10:37-0400 Body weight 94.8 kg Diego Huffman MD Work Phone: [facility] 03-12-2024 10:37-0400 Heart rate 61 /min Diego Huffman MD Work Phone: [facility] 03-12-2024 10:37-0400 SaO2% (BldA) [Mass fraction] 92 % Diego Huffman MD Work Phone: [facility] 09-07-2023 10:26-0400 Diastolic blood pressure 82 mm[Hg] Diego Huffman MD Work Phone: [facility] 09-07-2023 10:26-0400 Heart rate 60 /min Diego Huffman MD Work Phone: [facility] 09-07-2023 10:26-0400 Systolic blood pressure 138 mm[Hg] Diego Huffman MD Work Phone: [facility] 09-07-2023 09:51-0400 Body weight 90.72 kg Diego Huffman MD Work Phone: [facility] 09-07-2023 09:51-0400 SaO2% (BldA) [Mass fraction] 97 % Diego Huffman MD Work Phone: [facility] 08-02-2023 09:42-0400 Body height 185.4 cm Paul Chatterjee PA-C Work Phone: [facility] 08-02-2023 09:42-0400 Body temperature 97.2 [degF] Paul Chatterjee PA-C Work Phone: [facility] 08-02-2023 09:42-0400 Body weight 90.36 kg Paul Chatterjee PA-C Work Phone: [facility] 08-02-2023 09:42-0400 Diastolic blood pressure 82 mm[Hg] Paul Chatterjee PA-C Work Phone: [facility] 08-02-2023 09:42-0400 Heart rate 58 /min Paul Chatterjee PA-C Work Phone: [facility] 08-02-2023 09:42-0400 Respiratory rate 14 /min Paul Chatterjee PA-C Work Phone: [facility] 08-02-2023 09:42-0400 SaO2% (BldA) [Mass fraction] 93 % Paul Chatterjee PA-C Work Phone: [facility] 08-02-2023 09:42-0400 Systolic blood pressure 140 mm[Hg] Paul Chatterjee PA-C Work Phone: [facility] 07-08-2023 15:36-0400 Body weight 89.81 kg Diego Huffman MD Work Phone: [facility] 07-08-2023 15:36-0400 Diastolic blood pressure 68 mm[Hg] Diego Huffman MD Work Phone: [facility] 07-08-2023 15:36-0400 Heart rate 68 /min Diego Huffman MD Work Phone: [facility] 07-08-2023 15:36-0400 SaO2% (BldA) [Mass fraction] 98 % Diego Huffman MD Work Phone: [facility] 07-08-2023 15:36-0400 Systolic blood pressure 120 mm[Hg] Diego Huffman MD Work Phone: [facility] 03-02-2023 09:18-0400 Body height 182.9 cm Diego Huffman MD Work Phone: [facility] 03-02-2023 09:18-0400 Body weight 92.44 kg Diego Huffman MD Work Phone: [facility] 03-02-2023 09:18-0400 Diastolic blood pressure 78 mm[Hg] Diego Huffman MD Work Phone: [facility] 03-02-2023 09:18-0400 Heart rate 60 /min Diego Huffman MD Work Phone: [facility] 03-02-2023 09:18-0400 SaO2% (BldA) [Mass fraction] 96 % Diego Huffman MD Work Phone: [facility] 03-02-2023 09:18-0400 Systolic blood pressure 120 mm[Hg] Diego Huffman MD Work Phone: [facility] 09-01-2022 14:54-0400 Body height 182.9 cm Diego Huffman MD Work Phone: [facility] 09-01-2022 14:54-0400 Body weight 88.18 kg Diego Huffman MD Work Phone: [facility] 09-01-2022 14:54-0400 Diastolic blood pressure 74 mm[Hg] Diego Huffman MD Work Phone: [facility] 09-01-2022 14:54-0400 Heart rate 70 /min Diego Huffman MD Work Phone: [facility] 09-01-2022 14:54-0400 SaO2% (BldA) [Mass fraction] 97 % Diego Huffman MD Work Phone: [facility] 09-01-2022 14:54-0400 Systolic blood pressure 134 mm[Hg] Diego Huffman MD Work Phone: [facility] 07-07-2022 07:40-0400 Body weight 87.09 kg Ana Resendez APRN.HOME ENERGY RATER Work Phone: [facility] 07-07-2022 07:40-0400 Diastolic blood pressure 97 mm[Hg] Ana Resendez APRN.HOME ENERGY RATER Work Phone: [facility] 07-07-2022 07:40-0400 Heart rate 58 /min Ana Haagen MULTIPLE KNIFE EDGE TRIMMER OPERATOR.HOME ENERGY RATER Work Phone: [facility] 07-07-2022 07:40-0400 Respiratory rate 16 /min Ana Haagen MULTIPLE KNIFE EDGE TRIMMER OPERATOR.HOME ENERGY RATER Work Phone: [facility] 07-07-2022 07:40-0400 SaO2% (BldA) [Mass fraction] 95 % Ana Haagen MULTIPLE KNIFE EDGE TRIMMER OPERATOR.HOME ENERGY RATER Work Phone: [facility] 07-07-2022 07:40-0400 Systolic blood pressure 140 mm[Hg] Aan Haagen MULTIPLE KNIFE EDGE TRIMMER OPERATOR.HOME ENERGY RATER Work Phone: [facility] 04-16-2022 14:30-0400 Body temperature 97.59 [degF] Gracie Praisler-Wood MULTIPLE KNIFE EDGE TRIMMER OPERATOR.HOME ENERGY RATER Work Phone: [facility] 04-16-2022 14:30-0400 Body weight 88 kg Gracie Praisler-Wood MULTIPLE KNIFE EDGE TRIMMER OPERATOR.HOME ENERGY RATER Work Phone: [facility] 04-16-2022 14:30-0400 Diastolic blood pressure 68 mm[Hg] Gracie Praisler-Wood MULTIPLE KNIFE EDGE TRIMMER OPERATOR.HOME ENERGY RATER Work Phone: [facility] 04-16-2022 14:30-0400 Heart rate 60 /min Gracie Praisler-Wood MULTIPLE KNIFE EDGE TRIMMER OPERATOR.HOME ENERGY RATER Work Phone: [facility] 04-16-2022 14:30-0400 Respiratory rate 16 /min Gracie Praisler-Wood MULTIPLE KNIFE EDGE TRIMMER OPERATOR.HOME ENERGY RATER Work Phone: [facility] 04-16-2022 14:30-0400 SaO2% (BldA) [Mass fraction] 97 % Gracie Praisler-Wood MULTIPLE KNIFE EDGE TRIMMER OPERATOR.HOME ENERGY RATER Work Phone: [facility] 04-16-2022 14:30-0400 Systolic blood pressure 110 mm[Hg] Gracie Praisler-Wood MULTIPLE KNIFE EDGE TRIMMER OPERATOR.HOME ENERGY RATER Work Phone: [facility] 03-02-2022 13:51-0400 Body weight 86.82 kg Diego Huffman MD Work Phone: [facility] 03-02-2022 13:51-0400 Diastolic blood pressure 70 mm[Hg] Diego Huffman MD Work Phone: [facility] 03-02-2022 13:51-0400 Heart rate 60 /min Diego Huffman MD Work Phone: [facility] 03-02-2022 13:51-0400 Respiratory rate 16 /min Diego Hfufman MD Work Phone: [facility] 03-02-2022 13:51-0400 SaO2% (BldA) [Mass fraction] 92 % Diego Huffman MD Work Phone: [facility] 03-02-2022 13:51-0400 Systolic blood pressure 102 mm[Hg] Diego Huffman MD Work Phone: [facility] 02-25-2022 16:52-0400 Body weight 87.09 kg Diego Huffman MD Work Phone: [facility] 02-25-2022 16:52-0400 Diastolic blood pressure 72 mm[Hg] Diego Huffman MD Work Phone: [facility] 02-25-2022 16:52-0400 Heart rate 68 /min Diego Huffman MD Work Phone: [facility] 02-25-2022 16:52-0400 SaO2% (BldA) [Mass fraction] 95 % Diego Huffman MD Work Phone: [facility] 02-25-2022 16:52-0400 Systolic blood pressure 102 mm[Hg] Diego Huffman MD Work Phone: [facility] Encounters Encounter Date Encounter Type Care Provider Facility Start: 05-24-2025 End: 05-27-2025 Telephone encounter Rosa Elena Cohen Work Phone: Podiatry Start: 05-23-2025 ambulatory DIEGO HUFFMAN Facility :[facility] Start: 05-23-2025 End: 05-23-2025 Subsequent hospital visit by physician [facility] Rej Work Phone: Radiology Comment on above: Neuroma [D36.10] Start: 05-01-2025 End: 05-01-2025 Patient encounter procedure Pulm [facility] Work Phone: PULM LAB [facility] Start: 05-01-2025 End: 05-01-2025 ambulatory Pul[facility] Work Phone: [facility]M [facility] Comment on above: Spirometry Start: 04-26-2025 ambulatory [facility] Facility :[facility] Start: 04-26-2025 End: 04-26-2025 Subsequent hospital visit by physician Virgilio [facility] Work Phone: Radiology Comment on above: Chronic cough [R05.3 ] Start: 04-26-2025 End: 04-26-2025 Patient encounter procedure Diego Huffman MD Work Phone: [facility] Comment on above: Essential hypertensi on, benign (Primary Dx); Chronic cough; Dysphagia, unspecified type; Gastroesophageal reflux disease, unspecified whether esophagitis present Start: 04-26-2025 End: 04-26-2025 ambulatory [facility] Facility:[facility] Start: 04-23-2025 End: 04-23-2025 Office outpatient visit 25 minutes Stacie Hood APRN.CNP Work Phone: Urology Comment on above: OAB (overactive blad margarito) (Primary Dx); BPH with obstruction/lower urinary tract symptoms Start: 04-23-2025 End: 04-23-2025 ambulatory [facility] Facility:[facility] Start: 04-12-2025 End: 04-12-2025 Telephone encounter [facility] Comment on above: Appointment Start: 04-12-2025 End: 04-12-2025 Patient encounter procedure Rosa Elena Cohen Work Phone: Podiatry Comment on above: Neuroma (Primary Dx) ; Plantar fasciitis of left foot Start: 04-12-2025 End: 04-12-2025 ambulatory [facility] Facility:[facility] Start: 04-12-2025 End: 04-12-2025 Subsequent hospital visit by physician Xr [facility] Kim Work Phone: Radiology Comment on [...] (overactive bladder) Start: 03-20-2025 End: 03-20-2025 ambulatory [facility] Facility:[facility] Start: 03-15-2025 End: 03-15-2025 Patient encounter procedure Diego Huffman MD Work Phone: [facility] Comment on above: Essential hypertensi on, benign (Primary Dx); History of atrial fibrillation; Benign prostatic hyperplasia with nocturia; Memory loss; Gastroesophageal reflux disease, unspecified whether esophagitis present; Encounter for immunization Start: 03-15-2025 End: 03-15-2025 ambulatory [facility] Facility:[facility] Start: 03-08-2025 End: 03-08-2025 Follow-up encounter Diego Huffman MD Work Phone: [facility] Comment on above: Results Start: 03-08-2025 End: 03-08-2025 [facility] Start: 03-03-2025 End: 03-03-2025 ambulatory [facility] Facility:[facility] Start: 03-03-2025 End: 03-03-2025 Patient encounter procedure Amanda Zavala APRN.CNP Work Phone: [facility] Comment on above: Sore throat (Primary Dx) Start: 02-28-2025 End: 02-28-2025 Telephone encounter Diego Huffman MD Work Phone: Pulmonology [facility] Comment on above: Results Start: 02-27-2025 End: 02-27-2025 ambulatory [facility] Facility:[facility] Start: 02-18-2025 End: 02-18-2025 ambulatory CORNELIUS DASILVA Facility:[facility] Start: 02-18-2025 End: 02-18-2025 Patient encounter procedure Cornelius Dasilva APRN.KIANA MANUEL Work Phone: Urology Comment on above: OAB (overactive blad margarito) (Primary Dx); Benign prostatic hyperplasia with nocturia; Urgency of urination; Nocturia Start: 01-26-2025 End: 01-29-2025 Follow-up encounter Lynette Patel MD Work Phone: Cardiology Start: 01-25-2025 End: 01-25-2025 ambulatory LYNETTE PATEL Facility:[facility] Start: 01-22-2025 End: 01-22-2025 Subsequent hospital visit by physician Xr [facility] Work Phone: Radiology Comment on above: Acute cough [R05.1] Start: 01-22-2025 End: 01-22-2025 ambulatory [facility] Facility:[facility] Start: 01-22-2025 End: 01-22-2025 Office outpatient visit 25 minutes Sebastian Hernandez PA-C Work Phone: [facility] Comment on above: Acute cough (Primary Dx); Influenza A Start: 01-07-2025 End: 01-07-2025 ambulatory [facility] Facility:[facility] Start: 01-07-2025 End: 01-07-2025 Patient encounter procedure Cornelius Dasilva APRN.CNP, DNP Work Phone: Urology Comment on above: Benign prostatic hyp erplasia with nocturia (Primary Dx); Urgency of urination Start: 12-27-2024 End: 12-27-2024 ambulatory [facility] Facility:[facility] Start: 12-27-2024 End: 12-27-2024 Patient encounter procedure Lynette Patel MD Work Phone: Cardiology Comment on above: S/P MVR (mitral valv e repair) (Primary Dx); Aortic valve insufficiency, etiology of cardiac valve disease unspecified; Tinnitus of right ear; Thick nasal mucus Start: 12-19-2024 End: 12-19-2024 [facility] Start: 12-19-2024 End: 12-19-2024 Subsequent hospital visit by physician Mri [facility] (I-Stat/1.5t) Work Phone: Radiology Comment on above: 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] Start: 12-10-2024 End: 12-10-2024 ambulatory DIEGO ARMIDA Facility:[facility] Start: 12-10-2024 End: 12-10-2024 Patient encounter procedure Rosa Elena Ramon MD Work Phone: Otolaryngology Comment on above: 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 (Primary Dx); Tinnitus, bilateral; PND (post-nasal drip) Vasomotor rhinitis ( Primary Dx); Tinnitus, unspecified laterality; Tinnitus, bilateral; Sensorineural hearing loss, asymmetrical Start: 11-06-2024 End: 11-06-2024 ambulatory DIEGO HUFFMAN Facility:[facility] Start: 11-06-2024 End: 11-06-2024 Patient encounter procedure Rosa Elena Cohen Work Phone: Podiatry Comment on above: Neuroma (Primary Dx) ; Foot pain, right Start: 10-08-2024 End: 10-08-2024 ambulatory [facility] Facility:[facility] Start: 10-08-2024 End: 10-08-2024 Patient encounter procedure Cornelius Dasilva APRN.HOME ENERGY RATER, DNP Work Phone: Urology Comment on above: Benign prostatic hyp erplasia with nocturia (Primary Dx); Urgency of urination Start: 10-03-2024 End: 10-03-2024 Telephone encounter Diego Huffman MD Work Phone: [facility] Comment on above: Results Start: 09-26-2024 End: 09-26-2024 Subsequent hospital visit by physician Virgilio [facility] Work Phone: Radiology Comment on above: Foot pain, right [M7 9.671] Start: 09-26-2024 End: 09-26-2024 Patient encounter procedure Diego Huffman MD Work Phone: [facility] Comment on above: Foot pain, right (Pr imary Dx); Benign prostatic hyperplasia with nocturia; Essential hypertension, benign; Tinnitus of both ears Start: 09-26-2024 End: 09-26-2024 ambulatory [facility] Facility:[facility] Start: 09-14-2024 End: 09-14-2024 Patient encounter procedure Diego Huffman MD Work Phone: [facility] Comment on above: Essential hypertensi on, benign (Primary Dx); Postoperative atrial fibrillation (HCC); Vasomotor rhinitis; Tinnitus, unspecified laterality Start: 09-14-2024 End: 09-14-2024 ambulatory [facility] Facility:[facility] Start: 08-29-2024 End: 08-29-2024 Office outpatient visit 15 minutes Ana Resendez APRN.HOME ENERGY RATER Work Phone: [facility] Comment on above: Dizziness (Primary D x); Encounter for immunization; Essential hypertension, benign; S/P MVR (mitral valve repair); Urgency of urination Start: 08-29-2024 End: 08-29-2024 ambulatory ANA [facility] Facility:[facility] Start: 08-27-2024 End: 08-27-2024 Emergency department patient visit Diego Armida Facility:[facility] Start: 08-27-2024 End: 08-27-2024 ambulatory [facility] Facility:[facility] Start: 08-27-2024 End: 08-27-2024 Patient encounter procedure Leonarda Dutta APRN.HOME ENERGY RATER Work Phone: [facility] Comment on above: Dizziness (Primary D x); Lightheadedness Start: 07-31-2024 End: 07-31-2024 Patient encounter procedure Fidencio Renee PA-C Work Phone: [facility] Comment on above: Need for influenza v accination (Primary Dx) Start: 07-31-2024 End: 07-31-2024 ambulatory DIEGO HUFFMAN Facility:[facility] Start: 07-11-2024 Refill Diego Huffman MD Work Phone: [facility] Comment on above: Refill Request Start: 04-02-2024 End: 04-02-2024 Patient encounter procedure Cornelius Dasilva APRN.HOME ENERGY RATER, DNP Work Phone: Urology Comment on above: Benign prostatic hyp erplasia with nocturia (Primary Dx); Urgency of urination Start: 03-15-2024 Telephone encounter Diego Huffman MD Work Phone: Pulmonology [facility] Comment on above: Results Start: 03-12-2024 End: 03-12-2024 Patient encounter procedure Diego Huffman MD Work Phone: [facility] Comment on above: Essential hypertensi on, benign (Primary Dx); S/P MVR (mitral valve repair); Benign prostatic hyperplasia with nocturia; Urgency of urination Start: 09-07-2023 End: 09-07-2023 Patient encounter procedure Diego Huffman MD Work Phone: [facility] Comment on above: Essential hypertensi on, benign (Primary Dx); Encounter for immunization; S/P MVR (mitral valve repair); Benign prostatic hyperplasia with nocturia; Dermatitis Start: 08-02-2023 End: 08-02-2023 Patient encounter procedure Paul Chatterjee PA-C Work Phone: Urology Comment on above: Urgency of urination (Primary Dx); Nocturia; Benign prostatic hyperplasia with nocturia Start: 07-08-2023 End: 07-08-2023 Patient encounter procedure Diego Huffman MD Work Phone: [facility] Comment on above: Urgency of urination (Primary Dx); Nocturia; Benign prostatic hyperplasia with nocturia Start: 04-06-2023 End: 04-06-2023 Patient encounter procedure Smith Short MD Work Phone: Otolaryngology Comment on above: Vasomotor rhinitis ( Primary Dx); Tinnitus, bilateral; Gastroesophageal reflux disease, unspecified whether esophagitis present Start: 03-03-2023 Telephone encounter Diego Huffman MD Work Phone: [facility] Comment on above: Results Start: 03-02-2023 End: 03-02-2023 Subsequent hospital visit by physician Xr [facility] [employer] Work Phone: Radiology Comment on above: Acute pain of right knee [M25.561] Start: 03-02-2023 End: 03-02-2023 Patient encounter procedure Diego Huffman MD Work Phone: [facility] Comment on above: Essential hypertensi on, benign [...] encounter procedure Diego Huffman MD Work Phone: [facility] Comment on above: Essential hypertensi on, benign (Primary Dx); Encounter for immunization; Postoperative atrial fibrillation (HCC); Gastroesophageal reflux disease, unspecified whether esophagitis present Start: 07-07-2022 End: 07-07-2022 Subsequent hospital visit by physician Virgilio [facility] Work Phone: Radiology Comment on above: Acute pain of right knee [M25.561] Start: 07-07-2022 End: 07-07-2022 Office outpatient visit 15 minutes Ana Resendez APRN.HOME ENERGY RATER Work Phone: [facility] Comment on above: Acute pain of left s houlder (Primary Dx); Essential hypertension, benign; Environmental and seasonal allergies; Acute pain of right knee Start: 07-05-2022 Telephone encounter Diego Huffman MD Work Phone: [facility] Comment on above: Right Knee Pain Start: 05-25-2022 Telephone encounter Luis Jammie Cordero DO Work Phone: Cardiology Comment on above: Results (Echo) Start: 04-19-2022 Telephone encounter James Rouse MD Work Phone: [facility] Comment on above: Results (Thyroid US) Start: 04-19-2022 End: 04-19-2022 Subsequent hospital visit by physician Us [facility] Work Phone: Radiology Comment on above: Globus sensation [R0 9.89] Start: 04-17-2022 Telephone encounter Gracie Rossi APRN.HOME ENERGY RATER Work Phone: [facility] Comment on above: Results Start: 04-16-2022 End: 04-16-2022 Subsequent hospital visit by physician Xr [facility] Work Phone: Radiology Comment on above: Globus sensation [R0 9.89] Start: 04-16-2022 End: 04-16-2022 Patient encounter procedure Gracie Aj APRN.HOME ENERGY RATER Work Phone: [facility] Comment on above: Cough (Primary Dx); Globus sensation Start: 03-11-2022 Telephone encounter Nurse Card Admin [facility] Work Phone: Cardiology Comment on above: Stress Test Instruct ions Start: 03-02-2022 End: 03-02-2022 Patient encounter procedure [facility], Specimen Start: 03-02-2022 End: 03-02-2022 Subsequent hospital visit by physician Xr [facility] Work Phone: Radiology Comment on above: Chest pain, unspecif ied type [R07.9] Start: 03-02-2022 End: 03-02-2022 Patient encounter procedure Diego Huffman MD Work Phone: [facility] Comment on above: Chest pain, unspecif ied type (Primary Dx); S/P MVR (mitral valve repair); Bradycardia following surgery; Postoperative atrial fibrillation (HCC); Essential hypertension, benign; Mitral valve disorder Start: 02-25-2022 End: 02-25-2022 Patient encounter procedure Diego Huffman MD Work Phone: [facility] Comment on above: URI, acute (Primary Dx) Start: 10-23-2013 End: 11-03-2013 Patient encounter status Cornelius Dasilva APRN.HOME ENERGY RATER, DNP Work Phone: [facility] Procedures Date Procedure Procedure Detail Performing [...] Narciso Jaquez MD Work Phone: Start: 03-15-2025 [facility] COVID-19 VACCINE AGE 12+ YR (COMIRNATY) Diego Huffman MD Work Phone: Start: 03-03-2025 STREP A MOLECULAR (POC) Amanda Abran MULTIPLE KNIFE EDGE TRIMMER OPERATOR.HOME ENERGY RATER Work Phone: Start: 02-18-2025 Urnls dip stick/tablet rgnt auto w/o microscopy Cornelius Dasilva MULTIPLE KNIFE EDGE TRIMMER OPERATOR.HOME ENERGY RATER, DNP Work Phone: Start: 01-22-2025 Radiologic exam chest 2 views Sebastian Hernandez PAFamiliaC Work Phone: Start: 01-22-2025 INFLUENZA A&B MOLECULAR (POC) Sebastian Augustus PA-C Work Phone: Start: 12-19-2024 Mri brain brain stem w/o w/contrast material Rosa Elena Ramon MD Work Phone: Start: 12-10-2024 HEARING TEST/AUDIOGRAM Ani Tavares Ashley HOLBROOK Work Phone: Start: 10-08-2024 Urnls dip stick/tablet rgnt auto w/o microscopy Cornelius Dasilva MULTIPLE KNIFE EDGE TRIMMER OPERATOR.HOME ENERGY RATER, DNP Work Phone: Start: 08-29-2024 PFIZER-BIONTECH COVID-19 VACCINE AGE 12+ YR (COMIRNATY) Ana Resendez MULTIPLE KNIFE EDGE TRIMMER OPERATOR.HOME ENERGY RATER Work Phone: Start: 03-12-2024 Adult depression screening [...] shoulder complete minimum 2 views Ana Resendez MULTIPLE KNIFE EDGE TRIMMER OPERATOR.HOME ENERGY RATER Work Phone: Start: 07-07-2022 Radiologic exam knee complete 4/more views Ana Resendez MULTIPLE KNIFE EDGE TRIMMER OPERATOR.HOME ENERGY RATER Work Phone: Start: 04-19-2022 Us soft tissue head & neck real time imge docm Gracie Aj MULTIPLE KNIFE EDGE TRIMMER OPERATOR.HOME ENERGY RATER Work Phone: Start: 04-16-2022 Radiologic exam chest 2 views Gracie Aj MULTIPLE KNIFE EDGE TRIMMER OPERATOR.HOME ENERGY RATER Work Phone: Start: 04-16-2022 Radiologic examination neck soft tissue Gracie Aj MULTIPLE KNIFE EDGE TRIMMER OPERATOR.HOME ENERGY RATER Work Phone: Start: 03-02-2022 Radiologic exam chest [...] Author Start: 02-28-2028 Diabetes Screening Diabetes Screening [facility] Start: 03-14-2027 Diabetes Screening Diabetes Screening [facility] Start: 06-22-2026 Urine microalbumin profile [facility] Start: 03-02-2026 DIABETES SCREEN DIABETES SCREEN [facility] Start: 03-02-2026 Diabetes Screening Diabetes Screening [facility] Start: 09-17-2025 End: 09-17-2025 Patient encounter procedure 09/17/2025 2:40 PM EDT Office Visit Family Medicine [place] [address] [place] [address] Diego Huffman MD [address] [place] [address] 6 month follow up Family [facility] [place] Comment on above: 6 month follow up Start: 07-01-2025 End: 07-01-2025 Patient encounter procedure Cardiology Comment on above: 6 month follow up FOLLOW UP - POST VERONIKA TING Start: 06-25-2025 End: 06-25-2025 Patient encounter procedure 06/25/2025 3:30 PM EDT Office Visit Podiatry [address] [place], [place] [phone] Rosa Elena Cohen [address] [place], [place] [phone] discuss us results Podiatry Comment on above: discuss us results Start: 06-20-2025 End: 06-20-2025 Patient encounter procedure 06/20/2025 10:00 AM EDT Appointment Radiology [address] [place] [address] Dysphagia, unspecified type [R13.10]; Gastroesophageal reflux disease, unspecified whether esophagitis present [K21.9] Radiology Comment on above: Dysphagia, unspecified type [R13.10]; Ga stroesophageal reflux disease, unspecified whether esophagitis present [K21.9] Start: 06-04-2025 End: 06-04-2025 Patient encounter procedure 06/04/2025 2:20 PM EDT Office Visit Urology [address] [address] Stacie Hood, MULTIPLE KNIFE EDGE TRIMMER OPERATOR.HOME ENERGY RATER [address] [place] [address] 6 wks follow up Urology Comment on above: 6 wks follow up Start: 05-23-2025 End: 05-23-2025 Patient encounter procedure 05/23/2025 2:25 PM EDT Appointment Radiology [address] [place] [address] US FOOT RT; KHOI NEUROMA - EVAL 2ND+3RD IMS FOR NEUROMA Radiology Comment on above: US FOOT RT; KHOI NEUROMA - EVAL 2ND+3R D IMS FOR NEUROMA Start: 05-01-2025 End: 05-01-2025 Patient encounter procedure 05/01/2025 1:30 PM EDT Office Visit Urology [address] [address] Narciso Jaquez MD [address] [place] [address] 6 wk cysto follow up Urology Comment on above: 6 wk cysto follow up Start: 05-01-2025 End: 05-01-2025 ambulatory [facility] Comment on above: Chronic cough [R05.3] Start: 04-23-2025 End: 04-23-2025 Patient encounter procedure 04/23/2025 11:20 AM EDT Office Visit Urology [address] [address] Stacie Hood, MULTIPLE KNIFE EDGE TRIMMER OPERATOR.HOME ENERGY RATER [address] [place] [address] 8 WK F/U Urology Comment on above: 8 WK F/U Start: 04-12-2025 End: 04-12-2025 Patient encounter procedure 04/12/2025 10:45 AM EDT Office Visit Podiatry [address] [place], [place] [phone] Rosa Elena Cohen [address] [place], [place] [phone] bilateral foot follow up Podiatry Comment on above: bilateral foot follow up Start: 04-01-2025 End: 04-01-2025 Patient encounter procedure 04/01/2025 11:00 AM EDT Office Visit Urology [address] [address] Cornelius Dasilva APRN.HOME ENERGY RATER, DNP [address] [place] [address] 8 WK F/U Urology Comment on above: 8 WK F/U Start: 03-20-2025 End: 03-20-2025 Patient encounter procedure 03/20/2025 9:30 AM EDT Office Visit Urology [address] [address] Narciso Jaquez MD [address] [place] [address] Cysto TRUS Urology Comment on above: Cysto [...] atrial fibrillation (HCC) Expected: 03/15/2025, Expires: 06/14/2025 [facility] Work Phone: Comment on above: Expected: 03/15/2025, Expires: Start: 03-15-2025 End: 06-14-2025 Comprehensive metabolic 2000 panel - Serum or Plasma COMPREHENSIVE METABOLIC PANEL Lab Routine Essential hypertension, benign Postoperative atrial fibrillation (HCC) Expected: 03/15/2025, Expires: 06/14/2025 [facility] Comment on above: Expected: 03/15/2025, Expires: Start: 03-15-2025 End: 06-14-2025 Lipid 1996 panel - Serum or Plasma LIPID PANEL BASIC Lab Routine Essential hypertension, benign Expected: 03/15/2025, Expires: 06/14/2025 [facility] Comment on above: Expected: 03/15/2025, Expires: Start: 03-12-2025 Anxiety Screening Anxiety Screening [facility] Start: 03-12-2025 Depression Screening Depression Screening [facility] Start: 03-12-2025 RSV Vaccine (1 - 1-dose 60+ series) RSV Vaccine (1 - 1-dose 60+ series) [facility] Comment on above: Postponed from 2002 (Declined at t his time) Start: 03-12-2025 RSV Vaccine (1 - 1-dose 75+ series) RSV Vaccine (1 - 1-dose 75+ series) [facility] Comment on above: Postponed from 2017 (Declined at t his time) Start: 03-07-2025 End: 02-28-2026 CARBOXYHEMOGLOBIN ELLE CARBOXYHEMOGLOBIN ELLE Lab Routine Polycythemia Expected: 03/07/2025, Expires: 02/28/2026 [facility] Comment on above: Expected: 03/07/2025, Expires: Start: 03-07-2025 End: 02-28-2026 CBC W Auto Differential panel - Blood COMPLETE BLOOD COUNT AND DIFFERENTIAL Lab Routine Polycythemia Expected: 03/07/2025, Expires: 02/28/2026 [facility] Work Phone: Comment on above: Expected: 03/07/2025, Expires: Start: 03-02-2025 DIABETES SCREEN DIABETES SCREEN [facility] Start: 02-27-2025 Covid-19 Vaccine () Covid-19 Vaccine () [facility] Start: 02-18-2025 End: 02-18-2025 Patient encounter procedure 02/18/2025 9:00 AM EDT Office Visit Urology [address] [place], [place] [phone] Cornelius Dasilva APRN.HOME ENERGY RATER, DNP [address] [place], [place] [phone] 6 WK F/U for Overactive Bladdder / OK PER DB Urology Comment on above: 6 WK F/U for Overactive Bladdder / OK PE R DB Start: 01-25-2025 End: 01-25-2025 Patient encounter procedure 01/25/2025 2:40 PM EST Office Visit Cardiology [address] [address] S/P MVR (mitral valve repair) [Z98.890] Cardiology Comment on above: S/P MVR (mitral valve repair) [Z98.890] Start: 01-07-2025 End: 01-07-2025 Patient encounter procedure 01/07/2025 1:30 PM EST Office Visit Urology [address] [place], [place] [phone] Cornelius Dasilva APRN.HOME ENERGY RATER, DNP [address] [place], [place] [phone] 3 MTH F/U FOR BPH, Overactive Bladdder. Urology Comment on above: 3 MTH F/U FOR BPH, Overactive Bladdder. Start: 12-27-2024 End: 12-27-2025 Echocardiography ECHO Cardiology Routine S/P MVR (mitral valve repair) Expected: 12/27/2024, Expires: 12/27/2025 [facility] Work Phone: Comment on above: Expected: 12/27/2024, Expires: Start: 12-26-2024 End: 12-26-2024 Patient encounter procedure 12/26/2024 1:40 PM EST Office Visit Cardiology [address] [address] Luis Cordero DO [address] [place] [address] establish care Cardiology Comment on above: establish care Start: 12-19-2024 End: 12-19-2024 Patient encounter procedure 12/19/2024 1:30 PM EST Appointment Radiology [address] [place], [place] [phone] 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 [H90.42 Radiology Comment on above: Sensorineural hearing loss (SNHL) of lef t ear with unrestricted hearing of right ear [H90.42 Start: 12-10-2024 End: 03-11-2025 CREATININE BLD CREATININE BLD Lab Routine 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 Expected: 12/10/2024, Expires: 03/11/2025 [facility] Comment on above: Expected: 12/10/2024, Expires: Start: 12-10-2024 End: 12-10-2024 Patient encounter procedure Audiology Comment on above: Vasomotor rhinitis [J30.0] Start: 11-28-2024 Advance Directive Discussion Advance Directive Discussion [facility] Start: 11-28-2024 Medicare Advantage Annual Wellness Visit Medicare Advantage Annual Wellness Visit [facility] Start: 11-06-2024 End: 11-06-2024 Patient encounter procedure 11/06/2024 1:15 PM EST Office Visit Podiatry [address] [facility] [address] Rosa Elena Cohen [address] [place] [place] [place] [address] Foot pain, right [M79.671] Podiatry Comment on above: Foot pain, right [M79.671] Start: 10-08-2024 End: 10-08-2024 Patient encounter procedure 10/08/2024 1:30 PM EST Office Visit Urology [address] [facility] [place] [address] Cornelius Dasilva, MULTIPLE KNIFE EDGE TRIMMER OPERATOR.HOME ENERGY RATER, DNP [address] [place] [address] Urgency of urination [R39.15] Urology Comment on above: Urgency of urination [R39.15] Start: 09-14-2024 End: 09-14-2024 Patient encounter procedure 09/14/2024 11:00 AM EDT Office Visit Family [facility] [place] [address] [place] [address] Diego Huffman MD [address] [place] [address] 6 month follow up Family Medicine [place] Comment on above: 6 month follow up Start: 09-07-2024 End: 09-07-2024 Patient encounter procedure 09/07/2024 2:20 PM EDT Office Visit Cardiology [address] [address] Luis Cordero, DO [address] [place], [place] [id number] S/P MVR (mitral valve repair) [Z98.890] Cardiology Comment on above: S/P MVR (mitral valve repair) [Z98.890] Start: 09-02-2024 DIABETES SCREEN DIABETES SCREEN [facility] Start: 08-01-2024 End: 08-01-2024 Patient encounter procedure 08/01/2024 11:00 AM EDT Office Visit Cardiology [address] [address] Bhanu Johansen, DO [address] [place] [address] S/P MVR (mitral valve repair) [Z98.890] Cardiology Comment on above: S/P MVR (mitral valve repair) [Z98.890] Start: 07-29-2024 Covid-19 Vaccine ( season) Covid-19 Vaccine ( season) [facility] Start: 07-29-2024 Covid-19 Vaccine ( season) Covid-19 Vaccine ( season) [facility] Start: 07-29-2024 Influenza vaccination Influenza Vaccine (#1) [facility] Start: 07-08-2024 ANNUAL PCP TEAM CHRONIC DISEASE VISIT ANNUAL PCP TEAM CHRONIC DISEASE VISIT [facility] Start: 07-08-2024 BP CONTROLLED (<130/80) BP CONTROLLED (<130/80) [facility] Start: 03-08-2024 End: 05-08-2024 CBC W Auto Differential panel - Blood CBC + DIFF Lab Routine Essential hypertension, benign Expected: 03/08/2024, Expires: 05/08/2024 [facility] Work Phone: Comment on above: Expected: 03/08/2024, Expires: Start: 03-08-2024 End: 05-08-2024 Comprehensive metabolic 2000 panel - Serum or Plasma COMP METABOLIC PANEL Lab Routine Essential hypertension, benign Expected: 03/08/2024, Expires: 05/08/2024 [facility] Work Phone: Comment on above: Expected: 03/08/2024, Expires: 4 Start: 03-08-2024 End: 05-08-2024 Lipid 1996 panel - Serum or Plasma LIPID PANEL BASIC Lab Routine Essential hypertension, benign Expected: 03/08/2024, Expires: 05/08/2024 [facility] Work Phone: Comment on above: Expected: 03/08/2024, Expires: Start: 03-02-2024 ANNUAL PCP TEAM CHRONIC DISEASE VISIT ANNUAL PCP TEAM CHRONIC DISEASE VISIT [facility] Start: 03-02-2024 BP CONTROLLED (<130/80) BP CONTROLLED (<130/80) [facility] Start: 01-08-2024 Covid-19 Vaccine ( season) Covid-19 Vaccine () [facility] Start: 11-27-2023 Advance Directive Discussion Advance Directive Discussion [facility] Comment on above: Postponed from 11/28/2022 (Declined at t his time) Start: 09-01-2023 ANNUAL PCP TEAM CHRONIC DISEASE VISIT ANNUAL PCP TEAM CHRONIC DISEASE VISIT [facility] Start: 07-29-2023 Influenza vaccination INFLUENZA (#1) [facility] Start: 07-07-2023 ANNUAL PCP TEAM CHRONIC DISEASE VISIT ANNUAL PCP TEAM CHRONIC DISEASE VISIT [facility] Start: 05-11-2023 BP CONTROLLED (<130/80) BP CONTROLLED (<130/80) [facility] Start: 04-16-2023 BP CONTROLLED (<130/80) BP CONTROLLED (<130/80) [facility] Start: 03-02-2023 Adult depression screening assessment DEPRESSION SCREENING [facility] Start: 03-02-2023 ANNUAL PCP TEAM CHRONIC DISEASE VISIT ANNUAL PCP TEAM CHRONIC DISEASE VISIT [facility] Start: 03-02-2023 BP CONTROLLED (<130/80) BP CONTROLLED (<130/80) [facility] Start: 03-02-2023 End: 05-02-2023 CBC W Auto Differential panel - Blood [facility] Work Phone: Comment on above: Expected: 03/02/2023, Expires: 3 Start: 03-02-2023 End: 05-02-2023 Comprehensive metabolic 2000 panel - Serum or Plasma [facility] Work Phone: Comment on above: Expected: 03/02/2023, Expires: 3 Start: 03-02-2023 End: 05-02-2023 LIPID PANEL, NONFASTING [facility] Work Phone: Comment on above: Expected: 03/02/2023, Expires: 3 Start: 02-25-2023 ANNUAL PCP TEAM CHRONIC DISEASE VISIT ANNUAL PCP TEAM CHRONIC DISEASE VISIT [facility] Start: 02-25-2023 BP CONTROLLED (<130/80) BP CONTROLLED (<130/80) [facility] Start: 02-02-2023 COVID-19 VACCINE (5 - Pfizer series) COVID-19 VACCINE (5 - Pfizer series) [facility] Start: 11-28-2022 ADVANCE DIRECTIVE DISCUSSION ADVANCE DIRECTIVE DISCUSSION [facility] Start: 11-28-2022 DEPRESSION ASSESSMENT DEPRESSION ASSESSMENT [facility] Start: 09-01-2022 End: 09-01-2023 CBC W Auto Differential panel - Blood CBC + DIFF Lab Routine Essential hypertension, benign Expected: 09/01/2022, Expires: 09/01/2023 [facility] Work Phone: Comment on above: Expected: 09/01/2022, Expires: 3 Start: 09-01-2022 End: 09-01-2023 Comprehensive metabolic 2000 panel - Serum or Plasma COMP METABOLIC PANEL Lab Routine Essential hypertension, benign Expected: 09/01/2022, Expires: 09/01/2023 [facility] Work Phone: Comment on above: Expected: 09/01/2022, Expires: 3 Start: 09-01-2022 End: 09-01-2023 Lipid 1996 panel - Serum or Plasma LIPID PANEL BASIC Lab Routine Essential hypertension, benign Expected: 09/01/2022, Expires: 09/01/2023 [facility] Work Phone: Comment on above: Expected: 09/01/2022, Expires: 3 Start: 07-29-2022 Influenza vaccination INFLUENZA (#1) [facility] Start: 04-16-2022 End: 06-16-2022 Thyrotropin [Units/volume] in Serum or Plasma [facility] Work Phone: Comment on above: Expected: 04/16/2022, Expires: 2 Start: 03-02-2022 End: 05-02-2022 Basic metabolic 2000 panel - Serum or Plasma [facility] Work Phone: Comment on above: Expected: 03/02/2022, Expires: 2 Start: 03-02-2022 End: 05-02-2022 CBC W Auto Differential panel - Blood [facility] Work Phone: Comment on above: Expected: 03/02/2022, Expires: 2 Start: 03-02-2022 End: 03-02-2023 SARS-CoV-2 (COVID-19) RNA [Presence] in Respiratory specimen by JELENA with probe detection PRE-PROCEDURE & PRE-OPERATIVE COVID Microbiology Routine Chest pain, unspecified type 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 Expected: 03/02/2022, Expires: 03/02/2023 [facility] Work Phone: Comment on above: Expected: 03/02/2022, Expires: 3 Start: 01-17-2022 COVID-19 VACCINE (4 - Booster for Pfizer series) COVID-19 VACCINE (4 - Booster for Pfizer series) [facility] Start: 11-28-2021 ADVANCE DIRECTIVE DISCUSSION ADVANCE DIRECTIVE DISCUSSION [facility] Start: 11-11-2021 COVID-19 VACCINE (4 - Booster for Pfizer series) COVID-19 VACCINE (4 - Booster for Pfizer series) [facility] Start: 07-02-2020 Adult depression screening assessment DEPRESSION SCREENING [facility] Start: 2017 RSV Vaccine (1 - 1-dose 75+ series) RSV Vaccine (1 - 1-dose 75+ series) [facility] Start: 07-24-2011 PNEUMOCOCCAL: 65+ (2 - PCV) PNEUMOCOCCAL: 65+ (2 - PCV) [facility] Start: 1992 SHINGRIX VACCINE (1 of 2) SHINGRIX VACCINE (1 of 2) [facility] Start: 1960 BP CONTROLLED (<130/80) BP CONTROLLED (<130/80) [facility] BLADDER SCAN BLADDER SCAN Pro cedures Routine Benign prostatic hyperplasia with nocturia Urgency of urination Ordered: 04/02/2024 [facility] Work Phone: Comment on above: Ordered: 04/02/2024 CYSTO/TRUS ONLY CYSTO/TRUS ONLY Procedures Routine Benign prostatic hyperplasia with nocturia Urgency of urination Nocturia Ordered: 02/18/2025 [facility] Comment on above: Ordered: 02/18/2025 End: 03-02-2023 ECG COMPLETE ECG COMPLETE ECG Routine Chest pain, unspecified type 1 Occurrences starting 03/02/2022 until 03/02/2023 [facility] Work Phone: Comment on above: 1 Occurrences starting 03/02/2022 until 03/02/2023 Influenza virus A an d B RNA and SARS-CoV-2 (COVID-19) N gene panel - Respiratory specimen by JELENA with probe detection COVID WITH FLUA+B, ROUTINE Microbiology Routine URI, acute Ordered: 02/25/2022 [facility] Work Phone: Comment on above: Ordered: 02/25/2022 End: 05-26-2026 LUNG VOLUMES LUNG VOLUMES PFT Routine Chronic cough 1 Occurrences starting 04/26/2025 until 05/26/2026 [facility] Comment on above: 1 Occurrences starting 04/26/2025 until 05/26/2026 LUNG VOLUMES LUNG VOLUMES PFT Routine Chronic cough 05/01/2025 12:40 PM EDT [facility] Work Phone: End: 01-09-2026 MR Brain WO and W contrast IV MRI BRAIN WO/W IVCON Radiology Routine 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 1 Occurrences starting 12/10/2024 until 01/09/2026 [facility] Work Phone: Comment on above: 1 Occurrences starting 12/10/2024 until 01/09/2026 POST VOID RESIDUAL POST VOID RES IDUAL Procedures Routine Benign prostatic hyperplasia with nocturia Urgency of urination Ordered: 10/08/2024 [facility] Work Phone: Comment on above: Ordered: 10/08/2024 POST VOID RESIDUAL POST VOID RES IDUAL Procedures Routine Benign prostatic hyperplasia with nocturia Urgency of urination Ordered: 01/07/2025 [facility] Work Phone: Comment on above: Ordered: 01/07/2025 POST VOID RESIDUAL POST VOID RES IDUAL Procedures Routine Benign prostatic hyperplasia with nocturia Urgency of urination Nocturia OAB (overactive bladder) Ordered: 02/18/2025 [facility] Work Phone: Comment on above: Ordered: 02/18/2025 End: 05-26-2026 SPIROMETRY WITH DILATOR IF OBSTRUCTED SPIROMETRY WITH DILATOR IF OBSTRUCTED PFT Routine Chronic cough 1 Occurrences starting 04/26/2025 until 05/26/2026 [facility] Work Phone: Comment on above: 1 Occurrences starting 04/26/2025 until 05/26/2026 SPIROMETRY WITH DILA TOR IF OBSTRUCTED SPIROMETRY WITH DILATOR IF OBSTRUCTED PFT Routine Chronic cough 05/01/2025 12:40 PM EDT [facility] Work Phone: End: 03-02-2023 STRESS ECHO TREADMILL STRESS ECHO TREADMILL Cardiology Routine Chest pain, unspecified type 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 1 Occurrences starting 03/02/2022 until 03/02/2023 [facility] Work Phone: Comment on above: 1 Occurrences starting 03/02/2022 until 03/02/2023 UA DIP, URINE (POC) UA DIP, URIN E (POC) Lab Routine Benign prostatic hyperplasia with nocturia Urgency of urination Nocturia OAB (overactive bladder) Ordered: 03/20/2025 [facility] Work Phone: Comment on above: Ordered: 03/20/2025 End: 05-12-2026 US Lower extremity - right US FOOT RIGHT Radiology Routine Neuroma 1 Occurrences starting 04/12/2025 until 05/12/2026 [facility] Work Phone: Comment on above: 1 Occurrences starting 04/12/2025 until 05/12/2026 End: 05-16-2023 Us soft tissue head & neck real time imge docm US THYROID/PARATHYROID Radiology STAT Globus sensation 1 Occurrences starting 04/16/2022 until 05/16/2023 [facility] Work Phone: Comment on above: 1 Occurrences starting 04/16/2022 until 05/16/2023 End: 05-26-2026 XR Chest PA and Lateral XR CHEST 2V FRONTAL/LAT Radiology Routine Chronic cough 1 Occurrences starting 04/26/2025 until 05/26/2026 [facility] Comment on above: 1 Occurrences starting 04/26/2025 until 05/26/2026 XR Chest PA and Lateral XR CHEST 2V FRONTAL/LAT Radiology Routine Chronic cough 04/26/2025 4:01 PM EDT [facility] End: 05-26-2026 XR Esophagus Views W contrast PO XR ESOPHAGRAM Radiology Routine Dysphagia, unspecified type Gastroesophageal reflux disease, unspecified whether esophagitis present 1 Occurrences starting 04/26/2025 until 05/26/2026 [facility] Comment on above: 1 Occurrences starting 04/26/2025 until 05/26/2026 XR Foot - bilateral AP and Lateral and oblique XR FOOT GENERAL 3V AP/LAT/OBL BILATERAL Radiology Routine Bilateral foot pain 04/12/2025 10:04 AM EDT [facility] Work Phone: End: 10-26-2025 XR Foot - right AP and Lateral and oblique XR FOOT GENERAL 3V AP/LAT/OBL RIGHT Radiology Routine Foot pain, right 1 Occurrences starting 09/26/2024 until 10/26/2025 [facility] Work Phone: Comment on above: 1 Occurrences starting 09/26/2024 until 10/26/2025 XR Foot - right AP a nd Lateral and oblique XR FOOT GENERAL 3V AP/LAT/OBL RIGHT Radiology Routine Foot pain, right 09/26/2024 5:37 PM EDT [facility] End: 03-31-2024 XR KNEE GENERAL 4V AP BOTH/PA BOTH/LAT/MERC RIGHT XR KNEE GENERAL 4V AP BOTH/PA BOTH/LAT/MERC RIGHT Radiology Routine Acute pain of right knee 1 Occurrences starting 03/02/2023 until 03/31/2024 [facility] Work Phone: Comment on above: 1 Occurrences starting 03/02/2023 until 03/31/2024 XR KNEE GENERAL 4V A P BOTH/PA BOTH/LAT/MERC RIGHT XR KNEE GENERAL 4V AP BOTH/PA BOTH/LAT/MERC RIGHT Radiology Routine Acute pain of right knee 03/02/2023 10:35 AM EDT [facility] Work Phone: [facility] Immunizations Immunization Date Immunization Notes Care Provider [facility] 03-15-2025 COVID-19 vaccine, ag e 12+ yr (PFIZER-BIONTECH COMIRNATY) Diego Huffman MD Work Phone: [facility] 11-07-2024 zoster vaccine recombinant Diego Huffman MD Work Phone: [facility] 08-29-2024 COVID-19 vaccine, ag e 12+ yr (PFIZER-BIONTECH COMIRNATY) Ana Resendez MULTIPLE KNIFE EDGE TRIMMER OPERATOR.HOME ENERGY RATER Work Phone: [facility] 07-31-2024 influenza, high dose seasonal, preservative-free Fidencio Renee PA-C Work Phone: [facility] 09-07-2023 COVID-19 vaccine, ag e 12+ yr, 2022- season (PFIZER-BIONTECH) Diego Huffman MD Work Phone: [facility] 09-07-2023 influenza (HD-IIV4) vaccine, age 65+ yr, high dose, quadrivalent, PF (FLUZONE HIGH-DOSE) Diego Huffman MD Work Phone: [facility] 09-07-2023 influenza virus vaccine, unspecified formulation Diego Huffman MD Work Phone: [facility] 09-01-2022 pneumococcal Conjuga te, unspecified formulation Diego Huffman MD Work Phone: [facility] Work Phone: 09-01-2022 influenza, high-dose , quadrivalent vaccine (FLUZONE HIGH DOSE QUADRIVALENT) Diego Huffman MD Work Phone: [facility] 09-01-2022 pneumococcal (PCV20) vaccine, 20 valent (PREVNAR 20) Deigo Huffman MD Work Phone: [facility] 09-16-2021 COVID-19 original vaccine, age 12+ yr, monovalent (PFIZER-BIONTECH - PURPLE TOP) Smith Short MD Work Phone: [facility] 09-16-2021 influenza, high-dose , quadrivalent vaccine (FLUZONE HIGH DOSE QUADRIVALENT) Diego Huffman MD Work Phone: [facility] 02-19-2021 COVID-19 original vaccine, age 12+ yr, monovalent (PFIZER-BIONTECH - PURPLE TOP) Smith Short MD Work Phone: [facility] 01-30-2021 COVID-19 original vaccine, age 12+ yr, monovalent (PFIZER-BIONTECH - PURPLE TOP) Smith Short MD Work Phone: [facility] 09-26-2020 influenza, high-dose , quadrivalent vaccine (FLUZONE HIGH DOSE QUADRIVALENT) Diego Huffman MD Work Phone: [facility] 09-07-2019 influenza, high dose seasonal, preservative-free Diego Huffman MD Work Phone: [facility] 08-22-2018 influenza, high dose seasonal, preservative-free Diego Huffman MD Work Phone: [facility] 09-08-2016 influenza, high dose seasonal, preservative-free Diego Huffman MD Work Phone: [facility] 06-22-2016 diphtheria and tetan us toxoids, adsorbed for pediatric use Diego Huffman MD Work Phone: [facility] Work Phone: 06-22-2016 tetanus and diphther ia toxoids, adsorbed, preservative free, for adult use (5 Lf of tetanus toxoid and 2 Lf of diphtheria toxoid) Diego Huffman MD Work Phone: [facility] 08-27-2014 influenza, high dose seasonal, preservative-free Diego Huffman MD Work Phone: [facility] 08-20-2013 influenza virus vaccine, unspecified formulation Diego Huffman MD Work Phone: [facility] Work Phone: 08-19-2012 influenza virus vaccine, unspecified formulation Diego Huffman MD Work Phone: [facility] 08-25-2011 influenza virus vaccine, unspecified formulation Diego Huffman MD Work Phone: [facility] 03-17-2011 tetanus toxoid, redu bart diphtheria toxoid, and acellular pertussis vaccine, adsorbed Diego Huffman MD Work Phone: [facility] Work Phone: 09-14-2010 influenza virus vaccine, unspecified formulation Diego Huffman MD Work Phone: [facility] 07-24-2010 pneumococcal polysaccharide vaccine, 23 valent Diego Huffman MD Work Phone: [facility] Payers Date Payer Category Payer Self-pay [id number] [address] [facility] MEDICARE OO S ABDON [facility] MEDICARE PPO OOS [id number] 2021-Present [phone] [address] [place] [address] PPO [id number] [facility] MEDICARE OO S ANTHKRYST[address] [facility] MEDICARE PPO OOS [id number] 2021-Present [phone] [address] [place] [address] PPO [id number] 2021 Medicare (Managed Care) BS MED ICARE OOS [id number] 2021 Medicare [id number] Unknown [id number] Social History Date Type Detail Facility Tobacco smoking stat [facility] Never smoked tobacco [facility] Start: 02-25-2022 End: 05-01-2025 Alcohol intake Current non-drinker of alcohol (finding) [facility] Start: 1940 Sex Assigned At Not on file [facility] Start: 02-15-2022 End: 09-09-2022 Exposure to SARS-CoV-2 (event) Not sure [facility] Start: 1940 Sex Assigned At Male [facility] Work Phone: Start: 04-06-2023 End: 07-08-2023 History of Social function [facility] Work Phone: Start: 04-06-2023 End: 07-08-2023 Tobacco use panel [facility] Work Phone: Adult Depression Screening Assessment 0 [facility] Work Phone: Medical Equipment Procedure Code Equipment Code Equipment Origin al Text Equipment Identifier Dates [place] Ptfe 1.2 Cm X 10 Cm - [id number] Start: 10-30-2013 Band Anlplsty 35 mm Melgar - [id number] Start: 10-30-2013 Comment on above: Description: annulop lasty band Mesh Surgipro Me dium Clear Polypropylene 2cm Surgical Nonabsorbable Plug - [id number] Start: 08-25-2020 Functional Status Date Assessment Result Facility 02-24-2015 Are you deaf, or do you have serious difficulty hearing Yes 02/24/2015 1:06 PM EDT Rozina Horne MA Yes [facility] 02-24-2015 Are you blind, or do you have serious difficulty seeing, even when wearing glasses No 02/24/2015 1:06 PM EDT Rozina Horne MA No [facility] 02-24-2015 Do you have serious difficulty walking or climbing stairs Yes 02/24/2015 1:06 PM EDT Rozina Horne MA Yes [facility] 02-24-2015 Do you have difficul ty dressing or bathing No 02/24/2015 1:06 PM EDT Rozina Horne MA No [facility] 02-24-2015 Because of a physica l, mental, or emotional condition, do you have difficulty doing errands alone such as visiting a physician's office or shopping No 02/24/2015 1:06 PM EDT Rozina Horne MA No [facility] Mental Status Date Assessment Result Facility 02-24-2015 Because of a physica l, mental, or emotional condition, do you have serious difficulty concentrating, remembering, or making decisions No 02/24/2015 1:06 PM EDT Rozina Horne MA No [facility] Clinical Notes 07-08-2015 to 05-27-2025 Telephone Encounter - Amber Villa LPN - 05/27/2025 10:31 AM EDTTelephone Encounter - Amber Villa LPN - 05/27/2025 10:31 AM EDTTelephone Encounter - Amber Villa LPN - 05/27/2025 10:31 AM EDT Note Date & Type Note Facility 05-27-2025 Telephone encounter Note Patient notified of results and provider's instructions. Patient verbalizes understanding. Amber Villa LPN [facility] Work Phone: 05-27-2025 Telephone encounter Note Images from the original note were not included. Rosa Elena Cohen [facility] Podiatry Pool3 days ago Please call patient to confirm his ultrasound confirms neuroma. He can make follow-up to discuss results Rosa Elena Cohen DPM [facility] 05-27-2025 Miscellaneous Notes Patient notified of results and provider's instructions. Patient verbalizes understanding. Amber Villa LPN Images from the original note were not included. Rosa Elena Cohen Podiatry Pool3 days ago Please call patient to confirm his ultrasound confirms neuroma. He can make follow-up to discuss results Rosa Elena Cohen DPM documented in this encounter [facility] 04-26-2025 History of Present illness Narrative [...] PATIENT PRESENTS WITH AN IMPLANTABLE OR ATTACHED ANCHOR OPERATOR: No RADIOLOGY DEPARTMENT: General X-ray: Exam(s) Completed: Chest X-Ray PERIPHERAL IV DATA: Not applicable SIGNED BY: RT Carloz(Mercedes) April 26, 2025 3:54 PM documented in this encounter [facility] 04-26-2025 Note HNO ID: [id number] Author: OSMANI WATERMAN RT(R) Service: Radiology Author [...] PATIENT PRESENTS WITH AN IMPLANTABLE OR ATTACHED ANCHOR OPERATOR: No RADIOLOGY DEPARTMENT: General X-ray: Exam(s) Completed: Chest X-Ray PERIPHERAL IV DATA: Not applicable SIGNED BY: RT Carloz(Mercedes) April 26, 2025 3:54 PM [facility] 04-26-2025 Note HNO ID: [id number] Author: DIEGO HUFFMAN MD Service: ? Author [...] to swallow. - Recent episodes after eating andorran and also Bhutanese steak. - Unable to finish meals due [...] to swallow. - Recent episodes after eating andorran and also Bhutanese steak. - Unable to finish meals due [...] to patient) Diego Huffman MD Recording using Conveneer software for draft documentation of the visit was discussed with the patient/authorized customer service representative teacher; all questions welcomed and answered. Patient/authorized customer service representative teacher agreed to proceed documented in this encounter [facility] 04-26-2025 Instructions Diego Huffman MD - [...] contact the clinic. documented in this encounter [facility] 04-23-2025 Note HNO ID: [id number] Author: STACIE HOOD APRN.KALEB Service: ? Author [...] Stacie Hood CNP documented in this encounter [facility] 04-23-2025 Note HNO ID: [id number] Author: MIKEY DACOSTA MA Service: ? Author Type: Software Installation Engineer Type: Progress Notes Filed: 04/23/2025 12:59 Note Text: Post void bladder scan completed. 0 ml residual remaining. Results reported to Stacie Hood CNP [facility] 04-13-2025 Note HNO ID: [id number] Author: ROSA ELENA COHEN, ? Service: ? [...] with the treatment plan. Attestation Recording using Conveneer software for draft documentation of the visit was discussed with the patient/authorized customer service representative teacher; all questions welcomed and answered. Patient/authorized customer service representative teacher agreed to proceed Rosa Elena Cohen DPM [...] with the treatment plan. Attestation Recording using Conveneer software for draft documentation of the visit was discussed with the patient/authorized customer service representative teacher; all questions welcomed and answered. Patient/authorized customer service representative teacher agreed to proceed Rosa Elena Cohen DPM AMB ROOMING INTAKE FLOWSHEET DATA Pain Pain Level: 10 Pain Location: (bilateral feet) Description: Sharp Duration Amount of Time: (ongoing) Frequency: Continuous Intervention/Comfort measure: Other: See comment (none)\ documented in this encounter [facility] 04-12-2025 Telephone encounter Note PT scheduled for MSK US on 05/23/25 at 2:25 PM at [place]. [facility] 04-12-2025 Miscellaneous Notes PT scheduled for [...] Slot held: N/A documented in this encounter [facility] 04-12-2025 Telephone encounter Note Visit Type: [...] of our four locations. Slot held: N/A [facility] 04-12-2025 Instructions Rosa Elena Cohen - [...] the ultrasound findings. documented in this encounter [facility] 04-12-2025 Note HNO ID: [id number] Author: KENISHA ARGUETA MA Service: ? Author Type: Software Installation Engineer Type: Progress Notes Filed: 04/13/2025 10:41 Note [...] PATIENT PRESENTS WITH AN IMPLANTABLE OR ATTACHED ANCHOR OPERATOR: No RADIOLOGY DEPARTMENT: General X-ray: Exam(s) Completed: Spine X-Ray(s): Cervical AP / LAT / OBL odontoid PERIPHERAL IV DATA: Not applicable SIGNED BY: RT Khushi(Mercedes) April 12, 2025 10:17 AM documented in this encounter [facility] 04-12-2025 Note HNO ID: [id number] Author: TEQUILA DELONG RT(Mercedes) Service: ? Author Type: Social Welfare Clerk Type: Progress Notes Filed: 04/12/2025 10:32 Note [...] PATIENT PRESENTS WITH AN IMPLANTABLE OR ATTACHED ANCHOR OPERATOR: No RADIOLOGY DEPARTMENT: General X-ray: Exam(s) Completed: [...] PATIENT PRESENTS WITH AN IMPLANTABLE OR ATTACHED ANCHOR OPERATOR: No RADIOLOGY DEPARTMENT: General X-ray: Exam(s) Completed: Lower Extremity X-Ray(s): Foot, Bilateral PERIPHERAL IV DATA: Not applicable SIGNED BY: RT Khushi(Mercedes) April 12, 2025 9:50 AM documented in this encounter [facility] 04-12-2025 Note HNO ID: [id number] Author: TEQUILA DELONG RT(R) Service: ? Author Type: Social Welfare Clerk Type: Progress Notes Filed: 04/12/2025 10:03 Note [...] PATIENT PRESENTS WITH AN IMPLANTABLE OR ATTACHED ANCHOR OPERATOR: No RADIOLOGY DEPARTMENT: General X-ray: Exam(s) Completed: Lower Extremity X-Ray(s): Foot, Bilateral PERIPHERAL IV DATA: Not applicable SIGNED BY: RT Khushi(R) April 12, 2025 9:50 AM [facility] 04-09-2025 Telephone encounter Note Patient scheduled for this tuesday [facility] 04-09-2025 Miscellaneous Notes Patient scheduled for this tuesday Patient is calling wanting to know if there were any appointments open today ? patient is c/o right foot pain 10/10 nerve pain. Patient has been seen for this in past. Katty Hines LPN documented in this encounter [facility] 04-09-2025 Telephone encounter Note Patient is calling wanting to know if there were any appointments open today ? patient is c/o right foot pain 10/10 nerve pain. Patient has been seen for this in past. Katty Hines LPN [facility] 04-03-2025 Telephone encounter Note Called patient and made aware that new script had been written. [facility] 04-03-2025 Miscellaneous Notes Called patient and [...] review and advise. documented in this encounter [facility] 03-27-2025 Telephone encounter Note Patient calls [...] pharmacy is selected. Please review and advise. [facility] 03-20-2025 Instructions Narciso Jaquez MD - [...] not clear with increased fluids. PHONE NUMBERS: [phone] [place] [phone] [place] [phone] [place] [address] RUFUS documented in this encounter [facility] 03-20-2025 Note HNO ID: [id number] Author: NARCISO JAQUEZ MD Service: ? Author Type: Physician Type: Progress Notes Filed: 03/20/2025 10:17 Note Text: [facility] UROLOGY PROCEDURE NOTE [facility] ([facility]) FLEXIBLE CYSTOURETHROSCOPY AND TRUS UROLOGY OUTPATIENT PROCEDURE NOTE UNIVERSAL PROTOCOL AND SAFETY CHECKLISTUNIVERSAL PROTOCOL / SAFETY CHECKLIST Procedure to be Performed: Cysto/TRUS Referral by: Humberto Dasilva APRN.HOME ENERGY RATER.DNP Indication: Bladder overactivity Sign In: A Moment [...] weeks Narciso Jaquez MD, MS Associate Staff [facility] 03-20-2025 History of Present illness Narrative Images from the original note were not included. [facility] [place] UROLOGY PROCEDURE NOTE [facility] ([facility]) FLEXIBLE CYSTOURETHROSCOPY AND TRUS UROLOGY OUTPATIENT PROCEDURE NOTE UNIVERSAL PROTOCOL AND SAFETY CHECKLISTUNIVERSAL PROTOCOL / SAFETY CHECKLIST Procedure to be Performed: Cysto/TRUS Referral by: Humberto Dasilva APRN.HOME ENERGY RATER.DNP Indication: Bladder overactivity Sign In: A Moment [...] weeks Narciso Jaquez MD, MS Associate Staff [facility] [place] [facility] documented in this encounter [facility] 03-15-2025 Note HNO ID: [id number] Author: DIEGO HUFFMAN MD Service: ? Author [...] Lymph 1.00 - 4.00 k/uL 1.39 1.26 Ramsey% % 12.4 12.3 Abs Ramsey <0.87 k/uL 0.56 0.50 Eosin% % 2.4 [...] Lymph 1.00 - 4.00 k/uL 1.39 1.26 Ramsey% % 12.4 12.3 Abs Ramsey <0.87 k/uL 0.56 0.50 Eosin% % 2.4 [...] Diego Huffman MD documented in this encounter [facility] 03-08-2025 Telephone encounter Note Pt notified. Sugar Slade MA [facility] 03-08-2025 Miscellaneous Notes Pt notified. Sugar Slade MA ----- Message from Diego Huffman MD sent at 03/08/2025 10:52 AM EDT ----- Repeat blood count is better. documented in this encounter [facility] 03-08-2025 Telephone encounter Note ----- Message from Diego Huffman MD sent at 03/08/2025 10:52 AM EDT ----- Repeat blood count is better. [facility] 03-03-2025 Note HNO ID: [id number] Author: AMANDA ZAVALA APRN.HOME ENERGY RATER Service: ? Author Type: Nurse Practitioner Type: Progress Notes Filed: 03/03/2025 14:54 Note Text: [facility] Subjective Maximo Nixon is [...] history is provided by the patient. No foreign language teacher was used. 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 Patient says he has had drainage for many years. This could be a cause for the sore throat due to season changes. Patient agreeable to following up with PCP Amanda Zavala APRN.HOME ENERGY RATER MDM Procedures [facility] 03-03-2025 History [...] history is provided by the patient. No foreign language teacher was used. 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 Patient says he has had drainage for many years. This could be a cause for the sore throat due to season changes. Patient agreeable to following up with PCP Amanda Zavala APRN.CNP MDM Procedures documented in this encounter [facility] 02-28-2025 Telephone encounter Note Phoned patient left detailed message with lab results, notes from Dr Huffman on patient voicemail. [facility] 02-28-2025 Miscellaneous Notes Phoned patient left detailed message with lab results, notes from Dr Huffman on patient voicemail. Sannaeint's labs are stable except his red count is up. Recheck labs in one week. Can be due to too little fluids. Push fluids and recheck ordered labs. documented in this encounter [facility] 02-28-2025 Telephone encounter Note Sannaeint's labs are stable except his red count is up. Recheck labs in one week. Can be due to too little fluids. Push fluids and recheck ordered labs. [facility] 02-18-2025 Instructions Cornelius Dasilva APRN.KIANA MANUEL - 02/18/2025 9:22 AM EDT Follow up with Cornelius Dasilva APRN.KIANA MANUEL in 8 weeks Stop the Trospium 20mg tablets and Start trial of Trospium 60mg [place] [facility] team will call to schedule the [...] Dasilva APRN.KIANA MANUEL documented in this encounter [facility] 02-18-2025 History of Present illness Narrative [facility] MALE PATIENT - [...] is an option Plan for CYSTO/TRUS at [place] office follow up in 8 weeks. Sooner [...] which included preparing to see the patient, [id number]-byrk patient care, completing clinical documentation, performing a medically appropriate examination, counseling and educating the patient/family/caregiver and ordering medications, tests, or procedures. Cornelius Dasilva DNP, CNP Department of Urology [facility] Verified name and date of . [...] Appointment with Cornelius. documented in this encounter [facility] 02-18-2025 Note HNO ID: [id number] Author: CORNELIUS DASILVA APRN.KIANA MANUEL Service: ? Author Type: Nurse Practitioner Type: Progress Notes Filed: 02/18/2025 09:31 Note Text: [facility] MALE PATIENT - [...] [facility] 02-18-2025 Note HNO ID: [id number] Author: KAYLI NEWMAN LPN Service: ? Author [...] echocardiogram in 1 year. Keep f/u appointment. [facility] 01-29-2025 Miscellaneous Notes Called pt to [...] Keep f/u appointment. documented in this encounter [facility] 01-22-2025 History of Present illness Narrative [...] PATIENT PRESENTS WITH AN IMPLANTABLE OR ATTACHED ANCHOR OPERATOR: No RADIOLOGY DEPARTMENT: General X-ray: Exam(s) Completed: Chest X-Ray PERIPHERAL IV DATA: Not applicable SIGNED BY: RT Khushi(R) January 22, 2025 11:07 AM documented in this encounter [facility] 01-22-2025 Note HNO ID: [id number] Author: TEQUILA DELONG RT(R) Service: ? Author Type: Social Welfare Clerk Type: Progress Notes Filed: 01/22/2025 11:12 Note [...] PATIENT PRESENTS WITH AN IMPLANTABLE OR ATTACHED ANCHOR OPERATOR: No RADIOLOGY DEPARTMENT: General X-ray: Exam(s) Completed: Chest X-Ray PERIPHERAL IV DATA: Not applicable SIGNED BY: RT Khushi(R) January 22, 2025 11:07 AM [facility] 01-22-2025 Note HNO ID: [id number] Author: SEBASTIAN HERNANDEZ PA-C Service: ? Author Type: Physician Datawarehouse Developer Type: Progress Notes Filed: 01/22/2025 11:35 Note Text: This note was created using [employer] Semiconductorriter. Subjective Maximo Nixon is a 84 year [...] illness Narrative This note was created using Brandtologyter. Subjective Maximo Nixon is a 84 year [...] Sebastian Hernandez PA-C documented in this encounter [facility] 01-07-2025 Instructions Cornelius Dasilva APRN.KIANA MANUEL [...] Dasilva APRN.KIANA MANUEL documented in this encounter [facility] 01-07-2025 History of Present illness Narrative [facility] MALE PATIENT - [...] which included preparing to see the patient, [id number] patient care, completing clinical documentation, performing a medically appropriate examination, counseling and educating the patient/family/caregiver and ordering medications, tests, or procedures. Cornelius Dasilva DNP, CNP Department of Urology [facility] documented in this encounter [facility] 01-07-2025 Note HNO ID: [id number] Author: CORNELIUS DASILVA APRN.KIANA MANUEL Service: ? Author Type: Nurse Practitioner Type: Progress Notes Filed: 01/07/2025 14:02 Note Text: [facility] MALE PATIENT - HISTORY AND PHYSICAL EXAMINATION PATIENT: Mxaimo Nixon PCP: Diego Huffman MD CHIEF COMPLAINT: [...] note were not included. [facility] [place] SECTION OF REGIONAL CARDIOLOGY OUTPATIENT VISIT DATE 12/27/2024 OUTPATIENT VISIT TYPE NEW PRIMARY CARE PHYSICIAN: Diego Huffman [address] [place] [address] Patient is being seen at the request [...] mmHg. PHT 119, trace TR, 1-2+AR, 1+ TN, asc Ao 3.6 PAST MEDICAL HISTORY Diagnosis [...] Patel MD, FACC documented in this encounter [facility] 12-27-2024 Note HNO ID: [id number] Author: LYNETTE PATEL MD Service: ? Author Type: Physician Type: Progress Notes Filed: 12/27/2024 15:02 Note Text: [facility] [place] SECTION OF REGIONAL CARDIOLOGY OUTPATIENT VISIT DATE 12/27/2024 OUTPATIENT VISIT TYPE NEW PRIMARY CARE PHYSICIAN: Diego Huffman [address] [place] [address] Patient is being seen at the request [...] mmHg. PHT 119, trace TR, 1-2+AR, 1+ TN, asc Ao 3.6 PAST MEDICAL HISTORY Diagnosis [...] air cells, likely inflammatory. Lynette Patel MD, [facility] 12-19-2024 History of Present illness Narrative Radiology [...] PATIENT PRESENTS WITH AN IMPLANTABLE OR ATTACHED ANCHOR OPERATOR: No ALLERGIES: Reviewed and unchanged CONTRAST ALLERGY: NO. EXAM: MRI - CONTRAST TYPE: GROUP II PERIPHERAL IV DATA: Ambulatory: A peripheral IV was started in the Right hand with a Angio cath: 22 gauge. RADIOLOGY DEPARTMENT: MR; Exam(s) Completed: Head: IAC/CPA SIGNATURE: RT Ángel(R) PATIENT NAME: Maximo Nixon DATE: December 19, 2024 TIME: 2:08 PM documented in this encounter [facility] 12-19-2024 Note HNO ID: [id number] Author: DONA MORELOS RT(R) Service: ? Author [...] PATIENT PRESENTS WITH AN IMPLANTABLE OR ATTACHED ANCHOR OPERATOR: No ALLERGIES: Reviewed and unchanged CONTRAST ALLERGY: NO. EXAM: MRI - CONTRAST TYPE: GROUP II PERIPHERAL IV DATA: Ambulatory: A peripheral IV was started in the Right hand with a Angio cath: 22 gauge. RADIOLOGY DEPARTMENT: MR; Exam(s) Completed: Head: IAC/CPA SIGNATURE: RT Ángel(R) PATIENT NAME: Maximo Nixon DATE: December 19, 2024 TIME: 2:08 PM [facility] 12-10-2024 Note HNO ID: [id number] Author: ROSA ELENA RAMON MD Service: ? [...] electronic medical record. documented in this encounter [facility] 12-10-2024 History of Present illness Narrative [facility] [place] AUDIOLOGIC EVALUATION REPORT Name: Maximo Nixon CC#: [id number] Date of Service: 12/10/2024 Date of : [...] week ago. Noise exposure: worked in a [employer]-no hearing protection lawn equipment. History of chemotherapy [...] evaluation of middle ear function. CPT code: 56475 RIGHT EAR: Normal ME pressure with enhanced TM compliance (mobility). LEFT EAR: Normal ME pressure with enhanced TM compliance (mobility). ACOUSTIC REFLEXES Description of procedure: This test is an objective measure of auditory and facial nerve pathways. CPT code: 55599, 30119 RIGHT EAR PROBE EAR: (ipsi right stimulus [...] bone conduction and speech recognition testing. CPT code:47121 RIGHT EAR: Hearing Sensitivity: WNL sloping to [...] strategies to enhance communication ability. * Call [phone] to schedule an appointment to assess your need for hearing aids. Request a HAE appointment. * Encouraged patient to reach out to insurance provider to determine if they are eligible for a hearing aid benefit. Patient was advised that if they return to [facility], the cost of hearing aids would likely be [id number]. Yusef Marquez, [facility] Clinical and Senior Hearing Implant Supervisor [employer] copied to: Rosa Elena Ramon MD [facility] Abbrev- iation Definition Degree of hearing sensitivity dB range WNL within normal limits WNL 0 - 20 SNHL sensorineural hearing loss Mild 20-40 CHL conductive hearing loss Moderate 40-55 MHL mixed hearing loss Moderately-Severe 55-70 WRS word recognition score Severe 70-90 ME middle ear Profound 90 + TM tympanic membrane documented in this encounter [facility] 12-10-2024 Note HNO ID: [id number] Author: ANI LIU AUD Service: ? Author Type: Supervisor Steel Division Type: Progress Notes Filed: 12/10/2024 17:35 Note Text: Head and Neck [place] AUDIOLOGIC EVALUATION REPORT Name: Maximo Nixon [facility]#: [id number] Date of Service: 12/10/2024 Date of : [...] week ago. Noise exposure: worked in a [employer]-no hearing protection lawn equipment. History of chemotherapy [...] made. SUMMARY: Audiogram can be viewed under Forms/Audiology/[facility]. OTOSCOPY RIGHT EAR: Otoscopic inspection revealed ear canal was clear with an identifiable cone of light. LEFT EAR: Otoscopic inspection revealed ear canal was clear with an identifiable cone of light. TYMPANOMETRY Description of procedure: This test is an objective evaluation of middle ear function. CPT code: 65464 RIGHT EAR: Normal ME pressure with enhanced TM compliance (mobility). LEFT EAR: Normal ME pressure with enhanced TM compliance (mobility). ACOUSTIC REFLEXES Description of procedure: This test is an objective measure of auditory and facial nerve pathways. CPT code: 13066, 29413 RIGHT EAR PROBE EAR: (ipsi right stimulus [...] bone conduction and speech recognition testing. CPT code:41457 RIGHT EAR: Hearing Sensitivity: WNL sloping to [...] strategies to enhance communication ability. * Call [phone] to schedule an appointment to assess your need for hearing aids. Request a HAE appointment. * Encouraged patient to reach out to insurance provider to determine if they are eligible for a hearing aid benefit. Patient was advised that if they return to [facility], the cost of hearing aids would likely be [id number]. Yusef Marquez, [facility] Clinical and Senior Hearing Implant Supervisor Steel Division copied to: Rosa Elena Ramon MD DUMONT [...] the pain is still present, please call [phone] and ask to speak to podiatry nurse. They will transfer you to my office. At that time, you can request to come in for an injection and we will bring you in right away Powerstep Original Full length. Can purchase at [employer] and boots,shoes and more here in [place], [employer] in [place] or [place]. Also can find in [place] in [facility]. Powersteps can also be purchased online, [...] fits well together documented in this encounter [facility] 11-06-2024 Note HNO ID: [id number] Author: ROSA ELENA COHEN, ? Service: ? [...] fracture ASSESSMENT: (D36.10) Neuroma (primary encounter diagnosis) (M79.764) Foot pain, right PLAN: 1. History and [...] Rosa Elena Cohen DPM Podiatry [address] [facility] [address] Dept: [phone] Dept AMB ROOMING INTAKE FLOWSHEET DATA Pain Pain Level: 10 Pain Location: Foot-Right Description: Sharp Duration Amount of Time: 3 Duration Units: Months Frequency: Continuous Intervention/Comfort measure: Relaxation, Reposition Patient presents with: Right Foot - New, Pain Amber Villa LPN documented in this encounter [facility] 11-06-2024 Note HNO ID: [id number] Author: AMBER VILLA LPN Service: ? Author [...] Dasilva APRN.KIANA MANUEL documented in this encounter [facility] 10-08-2024 History of Present illness Narrative [facility] MALE PATIENT - [...] which included preparing to see the patient, ftix-yv-sobu patient care, completing clinical documentation, performing a medically appropriate examination, counseling and educating the patient/family/caregiver and ordering medications, tests, or procedures. Cornelius Dasilva DNP, CNP Department of Urology [facility] Verified name and date of . [...] Appointment with Cornelius. documented in this encounter [facility] 10-08-2024 Note HNO ID: [id number] Author: CORNELIUS DASILVA APRN.KIANA MANUEL Service: ? Author Type: Nurse Practitioner Type: Progress Notes Filed: 10/08/2024 14:10 Note Text: [facility] MALE PATIENT - [...] [facility] 10-08-2024 Note HNO ID: [id number] Author: KAYLI NEWMAN LPN Service: ? Author [...] Center 10-03-2024 Telephone encounter Note Patient notified. [facility] 10-03-2024 Miscellaneous Notes Patient notified. ----- Message from Vicki Lomax sent at 10/02/2024 3:00 PM EST ----- Xray right foot is normal documented in this encounter [facility] 10-03-2024 Telephone encounter Note ----- Message from Vicki Lomax sent at 10/02/2024 3:00 PM EST ----- Xray right foot is normal [facility] 09-26-2024 History of Present illness Narrative [...] PATIENT PRESENTS WITH AN IMPLANTABLE OR ATTACHED ANCHOR OPERATOR: No RADIOLOGY DEPARTMENT: General X-ray: Exam(s) Completed: Lower Extremity X-Ray(s): Foot, Right PERIPHERAL IV DATA: Not applicable SIGNED BY: RT Khushi(R) September 26, 2024 5:28 PM documented in this encounter [facility] 09-26-2024 Note HNO ID: [id number] Author: TEQUILA DELONG RT(R) Service: ? Author Type: Social Welfare Clerk Type: Progress Notes Filed: 09/26/2024 17:36 Note [...] PATIENT PRESENTS WITH AN IMPLANTABLE OR ATTACHED ANCHOR OPERATOR: No RADIOLOGY DEPARTMENT: General X-ray: Exam(s) Completed: Lower Extremity X-Ray(s): Foot, Right PERIPHERAL IV DATA: Not applicable SIGNED BY: RT Khushi(R) September 26, 2024 5:28 PM [facility] 09-26-2024 Note HNO ID: [id number] Author: DIEGO HUFFMAN MD Service: ? Author [...] Diego Huffman MD documented in this encounter [facility] 09-14-2024 Note HNO ID: [id number] Author: DIEGO HUFFMAN MD Service: ? Author [...] Diego Huffman MD documented in this encounter [facility] 08-29-2024 Instructions Ana Resendez APRN.CNP - 08/29/2024 1:34 PM EDT Eat regularly and have healthy snacks in between meals. Stay well hydrated. Schedule back with urology. Follow-up with cardiology as planned. Follow-up with Dr. Huffman as planned. documented in this encounter [facility] 08-29-2024 Note HNO ID: [id number] Author: ANA RESENDEZ APRN.CNP Service: ? Author [...] to the emergency room. He presented to [facility] on 08/27/2024 with complaints of lightheadedness [...] (Patient not taking: Reported on 04/02/2024) Ipratropium Jennings (ATROVENT) 21 mcg (0.03 %) nasal spray [...] to the emergency room. He presented to [facility] on 08/27/2024 with complaints of lightheadedness [...] (Patient not taking: Reported on 04/02/2024) Ipratropium Jennings (ATROVENT) 21 mcg (0.03 %) nasal spray [...] immunization - ICD9: V03.89, ICD10: Z23 - [facility] COVID-19 VACCINE AGE 12+ YR (COMIRNATY) 3. [...] as needed for worsening/no improvement. Ana Resendez APRN.HOME ENERGY RATER Duplicate. documented in this encounter [facility] 08-29-2024 Note HNO ID: [id number] Author: CHEYENNE ZAVALA MA Service: ? Author Type: Software Installation Engineer Type: Progress Notes Filed: 08/29/2024 14:57 Note Text: Duplicate. [facility] 08-27-2024 Note HNO ID: [id number] Author: LEONARDA DUTTA APRN.HOME ENERGY RATER Service: ? Author Type: Nurse Practitioner Type: [...] ED Declines EMS documented in this encounter [facility] 07-31-2024 Note HNO ID: [id number] Author: FIDENCIO RENEE PA-C Service: ? Author Type: Physician Datawarehouse Developer Type: Progress Notes Filed: 07/31/2024 15:23 Note Text: Flu shot ordered. Fidencio Renee PA-C 07/31/2024 [facility] 07-31-2024 History of Present illness Narrative Flu shot ordered. Fidencio Renee PA-C 07/31/2024 documented in this encounter [facility] 07-11-2024 Telephone encounter Note Prescription Refill [...] tablet by mouth once daily. Marci Curry [facility] July 11, 2024 8:40 AM [facility] 07-11-2024 Miscellaneous Notes Prescription Refill Information [...] 2024 8:40 AM documented in this encounter [facility] 04-02-2024 Instructions Cornelius Dasilva APRN.CNP, DNP [...] Dasilva APRN.CNP, DNP documented in this encounter [facility] 04-02-2024 Nurse Note Bladder scan obtained 0 ml of urine [facility] 04-02-2024 Nurse Note Bladder scan obtained 0 ml of urine documented in this encounter [facility] 04-02-2024 History of Present illness Narrative [facility] MALE PATIENT - HISTORY AND PHYSICAL EXAMINATION PATIENT: Maximo Nixon (83 year old) 04/02/2024 PCP: Diego Huffman MD Consultation requested by Dr. Diego Huffman [address] [facility] [address] for an opinion regarding BPH and my [...] (Patient not taking: Reported on 04/02/2024) Ipratropium Jennings (ATROVENT) 21 mcg (0.03 %) nasal spray Use 2 Sprays in the nose twice daily. (Patient not taking: Reported on 04/02/2024) loratadine (CLARITIN) 10 mg tablet Take 1 tablet by mouth once daily. (Patient not taking: Reported on 04/02/2024) No current facility-administered medications for this visit. LABS: Glucose Urine-ED(POC) Negative 08/02/2023 Bilirubin Urine-ED(POC) Negative 08/02/2023 Ketone Urine-ED(POC) Negative 08/02/2023 Specific Dr[place]coll Urine-ED(POC) 1.025 08/02/2023 HEMOGLOBIN/BLOOD UA (POCT) Negative [...] not well controlled. follow up with Cornelius Daislva APRN.KIANA MANUEL in 4 weeks. Plan as above. - BLADDER SCAN - CONSULT TO PHYSICAL THERAPY Cornelius Dasilva DNP, KALEB Department of Urology [facility] documented in this encounter [facility] 03-15-2024 Miscellaneous Notes TC to patient who verbalized understanding of providers message and has no questions at this time. AMANDA Richardson Let him know his labs are ok documented in this encounter [facility] 03-12-2024 Instructions Diego Huffman MD - 03/12/2024 10:55 AM EDT Can get RSV vaccine at a pharmacy. Get fasting labs. documented in this encounter [facility] 03-12-2024 History of Present illness Narrative [...] and doesn't believe he has seen a medical billing and coding instructor. He is overdue to follow with his medical billing and coding instructor. Will get it set back up. Gerd: [...] PLUS FIBRE ORAL) Take by mouth. Ipratropium Jennings (ATROVENT) 21 mcg (0.03 %) nasal spray [...] Diego Huffman MD documented in this encounter [facility] 09-07-2023 History of Present illness Narrative [...] 81 mg by mouth once daily. Ipratropium Jennings (ATROVENT) 21 mcg (0.03 %) nasal spray [...] YR, HIGH DOSE, QUADRIVALENT (FLUZONE HIGH-DOSE) - [facility] COVID-19 VACCINE (2022- [place]) AGE 12+ YR 3. 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 - CONSULT TO CARDIOLOGY 4. Benign prostatic hyperplasia with nocturia - ICD9: 600.01, 788.43, ICD10: N40.1, R35.1 - stable. Diego Huffman RTO in six months and prn. documented in this encounter [facility] 08-02-2023 Instructions Paul Chatterjee PA-C - 08/02/2023 10:49 AM EDT > 3 mo. Appt w/ B. JOSHUA Chatterjee, EUGENE FIGUEROA for new Rx Follow-up documented in this encounter [facility] 08-02-2023 History of Present illness Narrative Images from the original note were not included. [facility] NEW CON[facility] PAT[facility]IC [...] 2 tablets by mouth once daily. Ipratropium Jennings (ATROVENT) 21 mcg (0.03 %) nasal spray [...] Appointment with Paul. documented in this encounter [facility] 07-08-2023 History of Present illness Narrative [...] PLUS FIBRE ORAL) Take by mouth. Ipratropium Jennings (ATROVENT) 21 mcg (0.03 %) nasal spray [...] Diego Huffman MD documented in this encounter [facility] 04-06-2023 History of Present illness Narrative [...] lesions. The vocal cords moved well bilaterally. Smtih Short MD Medical Decision Making: Problems: Moderate: 2+ stable chronic illnesses Risk: Moderate: Drug management Medical Decision Making Level: 4 - Moderate documented in this encounter [facility] 03-03-2023 Miscellaneous Notes TC to patient who verbalized understanding and has no questions at this time. Patient will call back if he decides he wants physical therapy. ESTEFANI Richardson Xray shows knee is ok. No changes in his prosthesis. If continues to have pain, can consider physical therapy or return to ortho documented in this encounter [facility] 03-02-2023 History of Present illness Narrative [...] 2023 10:20 AM documented in this encounter [facility] 03-02-2023 History of Present illness Narrative [...] Diego Huffman MD documented in this encounter [facility] 01-03-2023 Instructions Sean Walton II, OD [...] Walton II, OD documented in this encounter [facility] 01-03-2023 History of Present illness Narrative [...] Walton II, OD documented in this encounter [facility] 09-09-2022 History of Present illness Narrative [...] 2022 12:06 PM documented in this encounter [facility] 09-01-2022 Instructions Diego Huffman MD - 09/01/2022 3:10 PM EDT Can use flonase over the counter. documented in this encounter [facility] 09-01-2022 History of Present illness Narrative [...] Diego Huffman MD documented in this encounter [facility] 07-07-2022 History of Present illness Narrative [...] 2022 8:14 AM documented in this encounter [facility] 07-07-2022 Instructions Ana Resendez APRN.KALEB - 07/07/2022 8:06 AM EDT Get the xray of the right knee and left shoulder. documented in this encounter [facility] 07-07-2022 History of Present illness Narrative [...] Ana Resendez APRN.CNP documented in this encounter [facility] 07-05-2022 Miscellaneous Notes Noted Ana Resendez APRN.CNP Patient calling with request for referral to ORTHO for right knee pain. States he is wondering if his knee replacement has worn out. Knee pain started yesterday. Denies injury/trauma. Denies redness, swelling, inability to bear weight. At times difficult to walk. Advised OV for evaluation. Scheduled 07/07 with Ana Resendez METER ATTENDANT. Will go to Urgent Care if symptoms worsen. Delmis Farias RN documented in this encounter [facility] 05-25-2022 Miscellaneous Notes Demonstrates normal LV systolic function and a well-functioning mitral valve repair. -Dr. Cordero ____ Reviewed results with pt. documented in this encounter [facility] 04-19-2022 Miscellaneous Notes Patient given results and verbalized understanding of instructions given. Radha Garcia Ultrasound of the thyroid showed the right side was slightly larger than the left but no significant abnormalities. Follow up with ENT if symptoms persist. documented in this encounter [facility] 04-17-2022 Miscellaneous Notes Patient given results and verbalized understanding of instructions given. Radha Garcia ----- Message from Gracie Aj APRN.CNP sent at 04/17/2022 9:52 AM EDT ----- Please advise patient his thyroid test was normal. documented in this encounter [facility] 04-16-2022 Instructions Gracie Aj APRN.CNP - 04/16/2022 3:44 PM EDT ASSESSMENT/PLAN: 1. Cough - ICD9: 786.2, ICD10: R05.9 (primary diagnosis) - XR CHEST 2V FRONTAL/LAT Radiologist IMPRESSION: Stable exam without acute findings. Business Applications Analyst: MALLY Transcribe Date/Time: Apr 16 2022 3:37P Dictated by : GILBERTO WIN MD 2. Globus sensation - ICD9: 306.4, ICD10: R09.89 - XR NECK SOFT TISSUE 2V AP/LAT. Radiologist IMPRESSION: No soft tissue abnormality identified. Business Applications Analyst: PSCB Transcribe Date/Time: Apr 16 2022 3:38P [...] Discussed expected course of illness Gracie Aj APRN.HOME ENERGY RATER documented in this encounter [facility] 04-16-2022 History of Present illness Narrative [...] 2022 3:21 PM documented in this encounter [facility] 04-16-2022 History of Present illness Narrative [...] Radiologist IMPRESSION: Stable exam without acute findings. Business Applications Analyst: MALLY Transcribe Date/Time: Apr 16 2022 3:37P Dictated by : GILBERTO WIN MD 2. Globus sensation - ICD9: 306.4, ICD10: R09.89 - XR NECK SOFT TISSUE 2V AP/LAT. Radiologist IMPRESSION: No soft tissue abnormality identified. Business Applications Analyst: PSCUzma Transcribe Date/Time: Apr 16 2022 3:38P [...] Discussed expected course of illness Gracie Aj APRN.HOME ENERGY RATER documented in this encounter [facility] 03-11-2022 Miscellaneous Notes Call to pt [...] floor at Radiology: [address]; [place] [address] *This stress test will appear as 3 appointments on your schedule. You may get multiple reminder calls, but please arrive at the earliest scheduled appointment. * If you need to cancel or reschedule this test or have any questions regarding this test, please call [phone]. documented in this encounter [facility] 03-02-2022 History of Present illness Narrative [...] previous ov copied and pasted. CARDIO:last saw [facility] Cardiology in 11/2019. Was to follow [...] Abs Lymph 1.00 - 4.00 k/uL 1.35 Ramsey% % 10.6 Abs Ramsey <0.87 k/uL 0.42 Eosin% % 4.3 Abs [...] months and prn. documented in this encounter [facility] 02-25-2022 History of Present illness Narrative [...] Huffman RTO prn. documented in this encounter [facility] 07-08-2015 History of Past i llness [...] Cardiac Surgical prep: N/A SIGNATURE: HUNG Juarez HOME ENERGY RATER CHECKED BY: DATE of SERVICE: 10/23/2013 TIME [...] of this encounter (statuses as of 02/25/2022) [facility]2015 History of Past illness Narrative* Problem [...] Cardiac Surgical prep: N/A SIGNATURE: HUNG Juarez HOME ENERGY RATER CHECKED BY: DATE of SERVICE: 10/23/2013 TIME [...] of this encounter (statuses as of 03/02/2022) [facility]2015 History of Past illness Narrative* Problem [...] Cardiac Surgical prep: N/A SIGNATURE: HUNG Juarez [facility] CHECKED BY: DATE of SERVICE: 10/23/2013 [...] of this encounter (statuses as of 03/11/2022) [facility]2015 History of Past illness Narrative* Problem [...] Cardiac Surgical prep: N/A SIGNATURE: HUNG Juarez HOME ENERGY RATER CHECKED BY: DATE of SERVICE: 10/23/2013 TIME [...] of this encounter (statuses as of 04/16/2022) [facility]2015 History of Past illness Narrative* Problem [...] Cardiac Surgical prep: N/A SIGNATURE: HUNG Juarez [facility] CHECKED BY: DATE of SERVICE: 10/23/2013 [...] of this encounter (statuses as of 04/17/2022) [facility]2015 History of Past illness Narrative* Problem [...] Cardiac Surgical prep: N/A SIGNATURE: HUNG Juarez HOME ENERGY RATER CHECKED BY: DATE of SERVICE: 10/23/2013 TIME [...] of this encounter (statuses as of 04/19/2022) [facility]2015 History of Past illness Narrative* Problem [...] Cardiac Surgical prep: N/A SIGNATURE: HUNG Juarez HOME ENERGY RATER CHECKED BY: DATE of SERVICE: 10/23/2013 TIME [...] of this encounter (statuses as of 04/20/2022) [facility]2015 History of Past illness Narrative* Problem [...] Cardiac Surgical prep: N/A SIGNATURE: HUNG Juarez HOME ENERGY RATER CHECKED BY: DATE of SERVICE: 10/23/2013 TIME [...] of this encounter (statuses as of 05/25/2022) [facility]2015 History of Past illness Narrative* Problem [...] Cardiac Surgical prep: N/A SIGNATURE: HUNG Juarez [facility] CHECKED BY: DATE of SERVICE: 10/23/2013 [...] of this encounter (statuses as of 07/05/2022) [facility]2015 History of Past illness Narrative* Problem [...] Cardiac Surgical prep: N/A SIGNATURE: HUNG Juarez HOME ENERGY RATER CHECKED BY: DATE of SERVICE: 10/23/2013 TIME [...] of this encounter (statuses as of 07/07/2022) [facility]2015 History of Past illness Narrative* Problem [...] Cardiac Surgical prep: N/A SIGNATURE: HUNG Juarez HOME ENERGY RATER CHECKED BY: DATE of SERVICE: 10/23/2013 TIME [...] of this encounter (statuses as of 09/01/2022) [facility]2015 History of Past illness Narrative* Problem [...] Cardiac Surgical prep: N/A SIGNATURE: HUNG Juarez HOME ENERGY RATER CHECKED BY: DATE of SERVICE: 10/23/2013 TIME [...] of this encounter (statuses as of 09/09/2022) [facility]2015 History of Past illness Narrative* Problem [...] Cardiac Surgical prep: N/A SIGNATURE: HUNG Juarez [facility] CHECKED BY: DATE of SERVICE: 10/23/2013 [...] of this encounter (statuses as of 01/04/2023) [facility]2015 History of Past illness Narrative* Problem [...] Cardiac Surgical prep: N/A SIGNATURE: HUNG Juarez HOME ENERGY RATER CHECKED BY: DATE of SERVICE: 10/23/2013 TIME [...] of this encounter (statuses as of 03/02/2023) [facility]2015 History of Past illness Narrative* Problem [...] Cardiac Surgical prep: N/A SIGNATURE: HUNG Juarez HOME ENERGY RATER CHECKED BY: DATE of SERVICE: 10/23/2013 TIME [...] of this encounter (statuses as of 03/03/2023) [facility]2015 History of Past illness Narrative* Problem [...] Cardiac Surgical prep: N/A SIGNATURE: HUNG Juarez HOME ENERGY RATER CHECKED BY: DATE of SERVICE: 10/23/2013 TIME [...] of this encounter (statuses as of 04/07/2023) [facility]2015 History of Past illness Narrative* Problem [...] Cardiac Surgical prep: N/A SIGNATURE: HUNG Juarez HOME ENERGY RATER CHECKED BY: DATE of SERVICE: 10/23/2013 TIME [...] of this encounter (statuses as of 07/09/2023) [facility]2015 History of Past illness Narrative* Problem [...] Cardiac Surgical prep: N/A SIGNATURE: HUNG Juarez HOME ENERGY RATER CHECKED BY: DATE of SERVICE: 10/23/2013 TIME [...] of this encounter (statuses as of 08/02/2023) [facility]2015 History of Past illness Narrative* Problem [...] of this encounter (statuses as of 09/07/2023) [facility]2015 History of Past illness Narrative* Problem [...] Cardiac Surgical prep: N/A SIGNATURE: HUNG Juarez HOME ENERGY RATER CHECKED BY: DATE of SERVICE: 10/23/2013 TIME [...] of this encounter (statuses as of 03/13/2024) [facility]2015 History of Past illness Narrative* Problem [...] Cardiac Surgical prep: N/A SIGNATURE: HUNG Juarez HOME ENERGY RATER CHECKED BY: DATE of SERVICE: 10/23/2013 TIME [...] of this encounter (statuses as of 03/16/2024) [facility] URI, acute- Primary Acute upper respiratory infections of unspecified site [facility] Diagnosis Chest pain, unspecified type- Primary S/P MVR (mitral valve repair) Other postprocedural status Bradycardia following surgery Cardiac complications Postoperative atrial fibrillation (HCC) Cardiac complications Essential hypertension, benign Mitral valve disorder Mitral valve disorders [facility] noteNo assessment information availableWOhioHealth [facility] Work Phone: Evaluation note* Diagnosis Cough- Primary Globus sensation Gastrointestinal malfunction arising from mental factors [facility] Diagnosis Globus sensation Gastrointestinal malfunction arising from mental factors [facility] Diagnosis Acute pain of left shoulder- Primary Essential hypertension, benign Environmental and seasonal allergies Acute pain of right knee [facility] Diagnosis Essential hypertension, benign- Primary Encounter for immunization Need for other specified prophylactic vaccination against single bacterial disease Postoperative atrial fibrillation (HCC) Cardiac complications Gastroesophageal reflux disease, unspecified whether esophagitis present [facility]* Diagnosis Nonexudative age-related macular degeneration, bilateral, early dry stage- Primary After cataract not obscuring vision, left Pseudophakia Lens replaced by other means [facility] Diagnosis Nonexudative age-related macular degeneration, bilateral, early dry stage- Primary Pseudophakia Lens replaced by other means After cataract not obscuring vision, left Regular astigmatism, bilateral Presbyopia [facility] Diagnosis Essential hypertension, benign- Primary PND (post-nasal drip) Postnasal drip Acute pain of right knee Vasomotor rhinitis Allergic rhinitis, cause unspecified Gastroesophageal reflux disease, unspecified whether esophagitis present S/P MVR (mitral valve repair) Other postprocedural status [facility] Diagnosis Vasomotor rhinitis- Primary Allergic rhinitis, cause unspecified Tinnitus, bilateral Unspecified tinnitus Gastroesophageal reflux disease, unspecified whether esophagitis present [facility] Diagnosis Urgency of urination- Primary Nocturia Benign prostatic hyperplasia with nocturia [facility] Diagnosis Urgency of urination- Primary Nocturia Benign prostatic hyperplasia with nocturia [facility] Diagnosis Essential hypertension, benign- Primary Encounter [...] Essential hypertension, benign [facility] Need for influenza vaccination- Primary Need for prophylactic vaccination and inoculation against influenza [facility] Diagnosis Acute pain of right knee [facility] Diagnosis Acute pain of right knee Acute pain of left shoulder [facility] Diagnosis Globus sensation Gastrointestinal malfunction arising from mental factors Cough [facility] Diagnosis Chest pain, unspecified type [facility]* Diagnosis Dizziness- Primary Dizziness and giddiness Lightheadedness Dizziness and giddiness [facility] Diagnosis Dizziness- Primary Dizziness and giddiness Encounter for immunization Need for other specified prophylactic vaccination against single bacterial disease Essential hypertension, benign S/P MVR (mitral valve repair) Other postprocedural status Urgency of urination [facility] Diagnosis Essential hypertension, benign- Primary Postoperative atrial fibrillation (HCC) Cardiac complications Vasomotor rhinitis Allergic rhinitis, cause unspecified Tinnitus, unspecified laterality [facility] Diagnosis Foot pain, right- Primary Pain in limb Benign prostatic hyperplasia with nocturia Essential hypertension, benign Tinnitus of both ears Unspecified tinnitus [facility] Diagnosis Foot pain, right Pain in limb [facility] Diagnosis Benign prostatic hyperplasia with nocturia- Primary Urgency of urination [facility] Diagnosis Neuroma- Primary Other benign neoplasm of connective and other soft tissue of unspecified site Foot pain, right Pain in limb [facility] Diagnosis 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- Primary Tinnitus, bilateral Unspecified tinnitus PND (post-nasal drip) Postnasal drip [facility] Diagnosis Vasomotor rhinitis- Primary Allergic rhinitis, cause unspecified Tinnitus, unspecified laterality Tinnitus, bilateral Unspecified tinnitus Sensorineural hearing loss, asymmetrical [facility] Diagnosis 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 [facility] Diagnosis S/P MVR (mitral valve repair)- Primary Other postprocedural status Aortic valve insufficiency, etiology of cardiac valve disease unspecified Tinnitus of right ear Unspecified tinnitus Thick nasal mucus Other diseases of nasal cavity and sinuses [facility]* Diagnosis Benign prostatic hyperplasia with nocturia- Primary Urgency of urination [facility] Diagnosis Acute cough- Primary Influenza A Influenza with other respiratory manifestations [facility] Diagnosis OAB (overactive bladder)- Primary Hypertonicity of bladder Benign prostatic hyperplasia with nocturia Urgency of urination Nocturia [facility] Diagnosis Polycythemia- Primary Polycythemia vera [facility]* Diagnosis Sore throat- Primary Acute pharyngitis [facility]* Diagnosis Essential hypertension, benign- Primary History of atrial fibrillation Personal history of other diseases of circulatory system Benign prostatic hyperplasia with nocturia Memory loss Gastroesophageal reflux disease, unspecified whether esophagitis present Encounter for immunization Need for other specified prophylactic vaccination against single bacterial disease [facility] Diagnosis Urgency of urination- Primary Benign prostatic hyperplasia with nocturia Nocturia OAB (overactive bladder) Hypertonicity of bladder [facility] Diagnosis OAB (overactive bladder)- Primary Hypertonicity of bladder [facility]* Diagnosis Neuroma- Primary Other benign neoplasm of connective and other soft tissue of unspecified site Plantar fasciitis of left foot Plantar fascial fibromatosis [facility] Diagnosis Bilateral foot pain Pain in limb documented in this encounter [facility] note* Diagnosis OAB (overactive bladder)- Primary Hypertonicity of bladder BPH with obstruction/lower urinary tract symptoms Hypertrophy of prostate with urinary obstruction and other lower urinary tract symptoms (LUTS) documented in this encounter [facility] note* Diagnosis Essential hypertension, benign- Primary Chronic cough Cough Dysphagia, unspecified type Gastroesophageal reflux disease, unspecified whether esophagitis present documented in this encounter [facility] note* Diagnosis Chronic cough Cough documented in this encounter [facility] note* Diagnosis Chronic cough Cough documented in this encounter [facility] note* Diagnosis Chronic cough Cough documented in this encounter [facility] note* Diagnosis Neuroma Other benign neoplasm of connective and other soft tissue of unspecified site documented in this encounter [facility] for referral (narrative)* Outpatient Procedure (Routine) - Pending Review Specialty Diagnoses / Procedures Referred By Connie t Referred To [facility] [place] Diagnoses Chest pain, unspecified type 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 Procedures STRESS ECHO TREADMILL ECHO TTHRC R-T 2D W/WO M-MODE COMPLETE REST&ST Diego Huffman MD [address] [place] [address] [id number] [place] [address] Referral ID Status Reason Start Date Expiration Date Visits Requested Visits Authorized [id number] Pending Review Auto-Generat ed Referral 03/02/2022 03/02/2023 1 1 * Outpatient Procedure (Routine) - Closed Specialty Diagnoses / Procedures Referred By Contnilton t Referred To [facility] Diagnoses Chest pain, unspecified type Procedures ECG COMPLETE ECG ROUTINE ECG W/LEAST 12 LDS W/I&R Diego Huffman MD [address] [place] [address] [facility] [address] [place] [address] Referral ID Status Reason Start Date Expiration Date V isits Requested Visits Authorized [id number] Closed Auto-Generate d Referral 03/02/2022 11/27/2022 1 1 [facility] for referral (narrative)* Diagnostic Procedure Only (Urgent) - Pending Review Specialty Diagnoses / Procedures Referred By Contac t Referred To Contact US IMAGING Diagnoses Globus sensation Procedures US THYROID/PARATHYROID US SOFT TISSUE HEAD & NECK REAL TIME IMGE DOCGracie Pickering APRN.HOME ENERGY RATER [address] [place] [address] Us Imaging Referral ID Status Reason Start Date Expiration Date Visits Requested Visits Authorized [id number] Pending Review Auto-Generat ed Referral 04/16/2022 05/16/2023 1 1 * Diagnostic Procedure Only (Urgent) - Closed Specialty Diagnoses / Procedures Referred By Contac t Referred To Contact XR IMAGING Diagnoses Globus sensation Procedures XR NECK SOFT TISSUE 2V AP/LAT RADIOLOGIC EXAMINATION NECK SOFT TISSUE RADIOLOGIC EXAM CHEST 2 VIEWS Gracie Aj APRN.HOME ENERGY RATER [address] [place] [address] Xr Imaging Referral ID Status Reason Start Date Expiration Date V isits Requested Visits Authorized [id number] Closed Auto-Generate d Referral 04/16/2022 11/27/2022 1 1 [facility] for referral (narrative)* Diagnostic Procedure Only (Urgent) - Closed Specialty Diagnoses / Procedures Referred By Contac t Referred To Contact US IMAGING Diagnoses Globus sensation Procedures US THYROID/PARATHYROID US SOFT TISSUE HEAD & NECK REAL TIME IMGE DOCGracie Pickering APRN.HOME ENERGY RATER [address] [place] [address] Us Imaging Referral ID Status Reason Start Date Expiration Date V isits Requested Visits Authorized [id number] Closed Auto-Generate d Referral 04/19/2022 11/27/2022 1 1 [facility] for referral (narrative)* Diagnostic Procedure Only (Routine) - Closed Specialty Diagnoses / Procedures Referred By Contac t Referred To Contact XR IMAGING Diagnoses Acute pain of left shoulder Procedures XR SHOULDER GENERAL 3V OR MORE AP/TRUE AP/OTHER LEFT RADEX SHOULDER COMPLETE MINIMUM 2 VIEWS Ana Resendez APRN.HOME ENERGY RATER [address] [place] [address] Xr Imaging Referral ID Status Reason Start Date Expiration Date V isits Requested Visits Authorized [id number] Closed Auto-Generate d Referral 07/07/2022 11/27/2022 1 1 * Diagnostic Procedure Only (Routine) - Closed Specialty Diagnoses / Procedures Referred By Contac t Referred To Contact XR IMAGING Diagnoses Acute pain of right knee Procedures XR KNEE GENERAL 4V AP BOTH/PA BOTH/LAT/MERC RIGHT RADIOLOGIC EXAM KNEE COMPLETE 4/MORE VIEWS Ana Resendez APRN.HOME ENERGY RATER [id number] Xr Imaging Referral ID Status Reason Start Date Expiration Date V isits Requested Visits Authorized [id number] Closed Auto-Generate d Referral 07/07/2022 11/27/2022 1 1 [facility] for referral (narrative)* Diagnostic Procedure Only (Routine) - Closed Specialty Diagnoses / Procedures Referred By Contac t Referred To Contact XR IMAGING Diagnoses Acute pain of right knee Procedures XR KNEE GENERAL 4V AP BOTH/PA BOTH/LAT/MERC RIGHT RADIOLOGIC EXAM KNEE COMPLETE 4/MORE VIEWS Diego Huffman MD [address] [place] [address] [place] [address] Referral ID Status Reason Start Date Expiration Date V isits Requested Visits Authorized [id number] Closed Auto-Generate d Referral 03/02/2023 11/27/2023 1 1 [facility] for referral (narrative)* Diagnostic Procedure Only (Routine) - Closed Specialty Diagnoses / Procedures Referred By Contac t Referred To Contact XR IMAGING Diagnoses Acute pain of left shoulder Procedures XR SHOULDER GENERAL 3V OR MORE AP/TRUE AP/OTHER LEFT RADEX SHOULDER COMPLETE MINIMUM 2 VIEWS Ana Resendez APRN.HOME ENERGY RATER [address] [place] [address] [place] [address] Referral ID Status Reason Start Date Expiration Date V isits Requested Visits Authorized [id number] Closed Auto-Generate d Referral 07/07/2022 11/27/2022 1 1 * Diagnostic Procedure Only (Routine) - Closed Specialty Diagnoses / Procedures Referred By Contac t Referred To Contact XR IMAGING Diagnoses Acute pain of right knee Procedures XR KNEE GENERAL 4V AP BOTH/PA BOTH/LAT/MERC RIGHT RADIOLOGIC EXAM KNEE COMPLETE 4/MORE VIEWS Ana Resendez APRN.HOME ENERGY RATER [address] [place] [address] [place] [address] Referral ID Status Reason Start Date Expiration Date V isits Requested Visits Authorized [id number] Closed Auto-Generate d Referral 07/07/2022 11/27/2022 1 1 [facility] for referral (narrative)* Diagnostic Procedure Only (Urgent) - Closed Specialty Diagnoses / Procedures Referred By Contac t Referred To Contact XR IMAGING Diagnoses Globus sensation Procedures XR NECK SOFT TISSUE 2V AP/LAT RADIOLOGIC EXAMINATION NECK SOFT TISSUE RADIOLOGIC EXAM CHEST 2 VIEWS Gracie Aj APRN.HOME ENERGY RATER [address] [place] [address] [place] [address] Referral ID Status Reason Start Date Expiration Date V isits Requested Visits Authorized [id number] Closed Auto-Generate d Referral 04/16/2022 11/27/2022 1 1 [facility] for visit Narrative* Diagnostic Procedure Only (Urgent) - Closed Specialty Diagnoses / Procedures Referred By Contac t Referred To Contact US IMAGING Diagnoses Globus sensation Procedures US THYROID/PARATHYROID US SOFT TISSUE HEAD & NECK REAL TIME IMGE Gracie Burton, SHARIFA.HOME ENERGY RATER [address] [place] [address] Us Imaging Referral ID Status Reason Start Date Expiration Date V isits Requested Visits Authorized [id number] Closed Auto-Generate d Referral 04/19/2022 11/27/2022 1 1 [facility] for visit Narrative* Diagnostic Procedure Only (Routine) - Closed Specialty Diagnoses / Procedures Referred By Contac t Referred To Contact XR IMAGING Diagnoses Acute pain of right knee Procedures XR KNEE GENERAL 4V AP BOTH/PA BOTH/LAT/MERC RIGHT RADIOLOGIC EXAM KNEE COMPLETE 4/MORE VIEWS Diego Huffman MD [address] [id number] [place] [address] Referral ID Status Reason Start Date Expiration Date V isits Requested Visits Authorized [id number] Closed Auto-Generate d Referral 03/02/2023 11/27/2023 1 1 [facility] for visit Narrative* Diagnostic Procedure Only (Routine) - Closed Specialty Diagnoses / Procedures Referred By Contac t Referred To Contact XR IMAGING Diagnoses Acute pain of left shoulder Procedures XR SHOULDER GENERAL 3V OR MORE AP/TRUE AP/OTHER LEFT RADEX SHOULDER COMPLETE MINIMUM 2 VIEWS Ana Resendez APRN.HOME ENERGY RATER [phone] [place] [address] Referral ID Status Reason Start Date Expiration Date V isits Requested Visits Authorized [id number] Closed Auto-Generate d Referral 07/07/2022 11/27/2022 1 1 [facility] for visit Narrative* Diagnostic Procedure Only (Urgent) - Closed Specialty Diagnoses / Procedures Referred By Contac t Referred To Contact XR IMAGING Diagnoses Globus sensation Procedures XR NECK SOFT TISSUE 2V AP/LAT RADIOLOGIC EXAMINATION NECK SOFT TISSUE RADIOLOGIC EXAM CHEST 2 VIEWS Gracie Aj, SHARIFA.HOME ENERGY RATER [address] [place] [address] [place] [address] Referral ID Status Reason Start Date Expiration Date V isits Requested Visits Authorized [id number] Closed Auto-Generate d Referral 04/16/2022 11/27/2022 1 1 [facility] for visit Narrative* Diagnostic Procedure Only (Routine) - Closed Specialty Diagnoses / Procedures Referred By Contac t Referred To Contact XR IMAGING Diagnoses Foot pain, right Procedures XR FOOT GENERAL 3V AP/LAT/OBL RIGHT RADEX FOOT COMPLETE MINIMUM 3 VIEWS Diego Huffman MD [address] [place] [address] [place] [address] Referral ID Status Reason Start Date Expiration Date V isits Requested Visits Authorized [id number] Closed Auto-Generate d Referral 09/26/2024 10/26/2025 1 1 [facility] for visit Narrative* Diagnostic Procedure Only (Routine) - Closed Specialty Diagnoses / Procedures Referred By Contac t Referred To Contact XR IMAGING Diagnoses Bilateral foot pain Procedures XR FOOT GENERAL 3V AP/LAT/OBL BILATERAL RADEX FOOT COMPLETE MINIMUM 3 VIEWS Rosa Elena Cohen [address] [place] [address] Phone: tel: fax: [place] [address] Referral ID Status Reason Start Date Expiration Date V isits Requested Visits Authorized [id number] Closed Auto-Generat ed Referral Patient Cleared - Admin/Chairm an/Director advise to proceed or did not respond 04/10/2025 11/27/2025 1 1 [facility] for visit Narrative* Diagnostic Procedure Only (Routine) - Closed Specialty Diagnoses / Procedures Referred By Contac t Referred To Contact US IMAGING Diagnoses Neuroma Procedures US FOOT RIGHT US COMPL JOINT R-T W/IMAGE DOCUMENTATION US LMTD JOINT/OTH NONVASC XTR STRUX R-T W/IMG Ros aElena Cohen [address] [place] [address] Phone: tel: fax: [place] [address] Referral ID Status Reason Start Date Expiration Date V isits Requested Visits Authorized [id number] Closed Auto-Generate d Referral 05/10/2025 11/27/2025 1 1 [facility] Advance Directives No Advanced Directives Records FoundDocuments on File Type Date Recorded Patient Lead Trainer Expl anation Advance Directive(s) 08/25/2020 12:19 PM Advance Directive(s) 02/13/2020 9:50 AM Advance Directive(s) 02/05/2020 8:17 AM Documents on File Type Date Recorded Patient Lead Trainer Expl anation Advance Directive(s) 03/02/2022 5:54 PM Advance Directive(s) 08/25/2020 12:19 PM Advance Directive(s) 02/13/2020 9:50 AM Advance Directive(s) 02/05/2020 8:17 AM Documents on File Type Date Recorded Patient Lead Trainer Expl anation Advance Directive(s) 03/02/2022 5:54 PM [...] Vasomotor rhinitis Procedures CONSULT TO ENT OFFICE/OUTPATIENT [facility] 60-[place] [address] [place] [address] Referral ID Status Reason Start Date Expiration Date Visits Requested Visits Authorized [id number] Pending Review PCP Requested Referral 03/02/2023 03/01/2024 1 1 Specialty Diagnoses / Procedures Referred By Contac t Referred To Contact XR IMAGING Diagnoses Acute pain of right knee Procedures XR KNEE GENERAL 4V AP BOTH/PA BOTH/LAT/MERC RIGHT RADIOLOGIC EXAM KNEE COMPLETE 4/MORE VIEWS Diego Huffman MD [address] [place] [address] Xr Imaging Referral ID Status Reason Start Date Expiration Date V isits Requested Visits Authorized [id number] Closed Auto-Generate d Referral 03/02/2023 11/27/2023 1 1 Specialty Diagnoses / Procedures Referred By Contac t Referred To Contact Diagnoses Tinnitus, bilateral Procedures HEARING TEST/AUDIOGRAM COMPRE AUDIOMETRY THRESHOLD EVAL Smith Alarcon MD [address] [place] [address] [facility] [address] [place] [address] Referral ID Status Reason Start Date Expiration Date Visits Requested Visits Authorized [id number] Pending Review Auto-Generat ed Referral 04/06/2023 07/05/2023 1 1 Specialty Diagnoses / Procedures Referred By Contac t Referred To Contact Urology Diagnoses Urgency of urination Nocturia Benign prostatic hyperplasia with nocturia Procedures CONSULT TO UROLOGY OFFICE/OUTPATIENT [facility] 60-74 MINUTES Diego Huffman MD [address] [place] [address] Referral ID Status Reason Start Date Expiration Date Visits Requested Visits Authorized [id number] Pending Review PCP Requested Referral 07/08/2023 07/07/2024 1 1 Specialty Diagnoses / Procedures Referred By Contac t Referred To Contact Cardiology Diagnoses S/P MVR (mitral valve repair) Procedures CONSULT TO CARDIOLOGY OFFICE/OUTPATIENT [facility] 60-74 MINUTES Diego Huffman MD [address] [place] [address] Referral ID Status Reason Start Date Expiration Date Visits Requested Visits Authorized [id number] Pending Review PCP Requested Referral 09/06/2024 1 1 Specialty Diagnoses / Procedures Referred By Contac t Referred To Contact Urology Diagnoses Benign prostatic hyperplasia with nocturia Urgency of urination Procedures CONSULT TO UROLOGY OFFICE/OUTPATIENT [facility] 60 MINUTES Diego Huffman MD [address] [place] [address] Referral ID Status Reason Start Date Expiration Date Visits Requested Visits Authorized [id number] Authorized PCP Requested Referral 03/12/2024 03/12/2025 1 1 Specialty Diagnoses / Procedures Referred By Contac t Referred To Contact [facility] Diagnoses Benign prostatic hyperplasia with nocturia Urgency of urination Procedures CONSULT TO PHYSICAL THERAPY PHYSICAL THERAPY EVALUATION HIGH COMPLEX 45 MINS Cornelius Dasilva APRN.HOME ENERGY RATER, [place] [address] [place] [address] [facility] [place] [address] [place] [address] Referral ID Status Reason Start Date Expiration Date Visits Requested Visits Authorized [id number] Pending Review Auto-Generat ed Referral 04/02/2024 04/02/2025 1 1 Specialty Diagnoses / Procedures Referred By Contac t Referred To Contact Urology Diagnoses Urgency of urination Procedures CONSULT TO UROLOGY OFFICE/OUTPATIENT [facility] 60 MINUTES Ana Resendez APRN.HOME ENERGY RATER [address] [place] [address] Referral ID Status Reason Start Date Expiration Date Visits Requested Visits Authorized [id number] Authorized PCP Requested Referral 08/29/2024 08/29/2025 1 1 Specialty Diagnoses / Procedures Referred By Contac t Referred To Contact Ent - Otolaryngology Diagnoses Vasomotor rhinitis Tinnitus, unspecified laterality Procedures CONSULT TO ENT OFFICE[facility] 60 MINUTES Diego Huffman MD [address] [place] [address] Referral ID Status Reason Start Date Expiration Date Visits Requested Visits Authorized [id number] Authorized PCP Requested Referral 4 09/14/2025 1 1 Specialty Diagnoses / Procedures Referred By Contac t Referred To Contact Podiatry Diagnoses Foot pain, right Procedures CONSULT TO PODIATRY OFFICE/[facility]DM 60 MINUTES Diego Huffman MD [address] [place] [address] Referral ID Status Reason Start Date Expiration Date Visits Requested Visits Authorized [id number] Authorized PCP Requested Referral 4 09/26/2025 1 1 Specialty Diagnoses / Procedures Referred By Contac t Referred To Contact XR IMAGING Diagnoses Foot pain, right Procedures XR FOOT GENERAL 3V AP/LAT/OBL RIGHT RADEX FOOT COMPLETE MINIMUM 3 VIEWS Diego Huffman MD [address] [place] [address] Xr Imaging [facility] Referral ID Status Reason Start Date Expiration Date V isits Requested Visits Authorized [id number] Closed Auto-Generate d Referral 09/26/2024 10/26/2025 1 1 Specialty Diagnoses / Procedures Referred By Contac t Referred To Contact MR IMAGING Diagnoses 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 Procedures MRI BRAIN WO/W IVCON MRI BRAIN BRAIN STEM W/O W/CONTRAST MATERIAL Rosa Elena Ramon MD [address] [address] [place] [address] Referral ID Status Reason Start Date Expiration Date Visits Requested Visits Authorized [id number] Pending Review Auto-Generat ed Referral 12/10/2024 01/09/2026 1 1 Specialty Diagnoses / Procedures Referred By Contac t Referred To Contact Diagnoses Tinnitus, unspecified laterality Procedures HEARING TEST/AUDIOGRAM COMPRE AUDIOMETRY THRESHOLD EVAL Ani Silverman, AUD [address] [place] [address] [facility] [address] [place] [address] Referral ID Status Reason Start Date Expiration Date Visits Requested Visits Authorized [id number] New Request Auto-Generat ed Referral 12/10/2024 12/11/2025 1 1 Referral ID Status Reason Start Date Expiration Date Visits Re quested Visits Authorized [id number] Closed 12/12/2024 11/27/2025 1 1 Specialty Diagnoses / Procedures Referred By Contac t Referred To Contact Ent - Otolaryngology Diagnoses Tinnitus of right ear Thick nasal mucus Procedures CONSULT TO ENT CONSULT TO ENT OFFICE/OUTPATIENT [facility] 60 MINUTES Lynette Patel MD [address] [place] [address] Referral ID Status Reason Start Date Expiration Date Visits Requested Visits Authorized [id number] Authorized PCP Requested Referral 12/27/2024 12/27/2025 1 1 Specialty Diagnoses / Procedures Referred By Contac t Referred To [facility] Diagnoses S/P MVR (mitral valve repair) Procedures ECHO ECHO TTHRC R-T 2D W/WOM-MODE COMPL SPEC&COLR D Lynette Patel MD [address] [place] [address] [facility] [address] [place] [id number] Referral ID Status Reason Start Date Expiration Date Visits Requested Visits Authorized [id number] Pending Review Auto-Generat ed Referral 12/27/2024 12/27/2025 1 1 Additional Source Comments Source Comments (unrecognize d section and content) In the event this informatio n is protected by the Federal Confidentiality of Alcohol and Drug Abuse Patient Records regulations: The Federal rules restrict any use of the information to criminally investigate or prosecute any alcohol or drug abuse patient.[facility] the event this information is protected by the Federal Confidentiality of Alcohol and Drug Abuse Patient Records regulations: The Federal rules restrict any use of the information to criminally investigate or prosecute any alcohol or drug abuse patient.[facility]In the event this information is protected by the Federal Confidentiality of Alcohol and Drug Abuse Patient Records regulations: The Federal rules restrict any use of the information to criminally investigate or prosecute any alcohol or drug abuse patient.[facility]In the event this information is protected by the Federal Confidentiality of Alcohol and Drug Abuse Patient Records regulations: The Federal rules restrict any use of the information to criminally investigate or prosecute any alcohol or drug abuse patient.[facility] HospitalIn the event this information is protected by the Federal Confidentiality of Alcohol and Drug Abuse Patient Records regulations: The Federal rules restrict any use of the information to criminally investigate or prosecute any alcohol or drug abuse patient.[facility] HospitalIn the event this information is protected by the Federal Confidentiality of Alcohol and Drug Abuse Patient Records regulations: The Federal rules restrict any use of the information to criminally investigate or prosecute any alcohol or drug abuse patient.[facility] HospitalIn the event this information is protected by the Federal Confidentiality of Alcohol and Drug Abuse Patient Records regulations: The Federal rules restrict any use of the information to criminally investigate or prosecute any alcohol or drug abuse patient.[facility] HospitalIn the event this information is protected by the Federal Confidentiality of Alcohol and Drug Abuse Patient Records regulations: The Federal rules restrict any use of the information to criminally investigate or prosecute any alcohol or drug abuse patient.[facility] HospitalIn the event this information is protected by the Federal Confidentiality of Alcohol and Drug Abuse Patient Records regulations: The Federal rules restrict any use of the information to criminally investigate or prosecute any alcohol or drug abuse patient.[facility] HospitalIn the event this information is protected by the Federal Confidentiality of Alcohol and Drug Abuse Patient Records regulations: The Federal rules restrict any use of the information to criminally investigate or prosecute any alcohol or drug abuse patient.[facility] HospitalIn the event this information is protected by the Federal Confidentiality of Alcohol and Drug Abuse Patient Records regulations: The Federal rules restrict any use of the information to criminally investigate or prosecute any alcohol or drug abuse patient.[facility] HospitalIn the event this information is protected by the Federal Confidentiality of Alcohol and Drug Abuse Patient Records regulations: The Federal rules restrict any use of the information to criminally investigate or prosecute any alcohol or drug abuse patient.[facility] HospitalIn the event this information is protected by the Federal Confidentiality of Alcohol and Drug Abuse Patient Records regulations: The Federal rules restrict any use of the information to criminally investigate or prosecute any alcohol or drug abuse patient.[facility] HospitalIn the event this information is protected by the Federal Confidentiality of Alcohol and Drug Abuse Patient Records regulations: The Federal rules restrict any use of the information to criminally investigate or prosecute any alcohol or drug abuse patient.[facility] HospitalIn the event this information is protected by the Federal Confidentiality of Alcohol and Drug Abuse Patient Records regulations: The Federal rules restrict any use of the information to criminally investigate or prosecute any alcohol or drug abuse patient.[facility] HospitalIn the event this information is protected by the Federal Confidentiality of Alcohol and Drug Abuse Patient Records regulations: The Federal rules restrict any use of the information to criminally investigate or prosecute any alcohol or drug abuse patient.[facility] HospitalIn the event this information is protected by the Federal Confidentiality of Alcohol and Drug Abuse Patient Records regulations: The Federal rules restrict any use of the information to criminally investigate or prosecute any alcohol or drug abuse patient.[facility] HospitalIn the event this information is protected by the Federal Confidentiality of Alcohol and Drug Abuse Patient Records regulations: The Federal rules restrict any use of the information to criminally investigate or prosecute any alcohol or drug abuse patient.[facility] HospitalIn the event this information is protected by the Federal Confidentiality of Alcohol and Drug Abuse Patient Records regulations: The Federal rules restrict any use of the information to criminally investigate or prosecute any alcohol or drug abuse patient.[facility] HospitalIn the event this information is protected by the Federal Confidentiality of Alcohol and Drug Abuse Patient Records regulations: The Federal rules restrict any use of the information to criminally investigate or prosecute any alcohol or drug abuse patient.[facility] HospitalIn the event this information is protected by the Federal Confidentiality of Alcohol and Drug Abuse Patient Records regulations: The Federal rules restrict any use of the information to criminally investigate or prosecute any alcohol or drug abuse patient.[facility] HospitalIn the event this information is protected by the Federal Confidentiality of Alcohol and Drug Abuse Patient Records regulations: The Federal rules restrict any use of the information to criminally investigate or prosecute any alcohol or drug abuse patient.[facility] HospitalIn the event this information is protected by the Federal Confidentiality of Alcohol and Drug Abuse Patient Records regulations: The Federal rules restrict any use of the information to criminally investigate or prosecute any alcohol or drug abuse patient.[facility] HospitalIn the event this information is protected by the Federal Confidentiality of Alcohol and Drug Abuse Patient Records regulations: The Federal rules restrict any use of the information to criminally investigate or prosecute any alcohol or drug abuse patient.[facility]In the event this information is protected by the Federal Confidentiality of Alcohol and Drug Abuse Patient Records regulations: The Federal rules restrict any use of the information to criminally investigate or prosecute any alcohol or drug abuse patient.[facility] HospitalIn the event this information is protected by the Federal Confidentiality of Alcohol and Drug Abuse Patient Records regulations: The Federal rules restrict any use of the information to criminally investigate or prosecute any alcohol or drug abuse patient.[facility] HospitalIn the event this information is protected by the Federal Confidentiality of Alcohol and Drug Abuse Patient Records regulations: The Federal rules restrict any use of the information to criminally investigate or prosecute any alcohol or drug abuse patient.[facility] HospitalIn the event this information is protected by the Federal Confidentiality of Alcohol and Drug Abuse Patient Records regulations: The Federal rules restrict any use of the information to criminally investigate or prosecute any alcohol or drug abuse patient.[facility] HospitalIn the event this information is protected by the Federal Confidentiality of Alcohol and Drug Abuse Patient Records regulations: The Federal rules restrict any use of the information to criminally investigate or prosecute any alcohol or drug abuse patient.[facility] HospitalIn the event this information is protected by the Federal Confidentiality of Alcohol and Drug Abuse Patient Records regulations: The Federal rules restrict any use of the information to criminally investigate or prosecute any alcohol or drug abuse patient.[facility] HospitalIn the event this information is protected by the Federal Confidentiality of Alcohol and Drug Abuse Patient Records regulations: The Federal rules restrict any use of the information to criminally investigate or prosecute any alcohol or drug abuse patient.[facility] HospitalIn the event this information is protected by the Federal Confidentiality of Alcohol and Drug Abuse Patient Records regulations: The Federal rules restrict any use of the information to criminally investigate or prosecute any alcohol or drug abuse patient.[facility] HospitalIn the event this information is protected by the Federal Confidentiality of Alcohol and Drug Abuse Patient Records regulations: The Federal rules restrict any use of the information to criminally investigate or prosecute any alcohol or drug abuse patient.[facility] HospitalIn the event this information is protected by the Federal Confidentiality of Alcohol and Drug Abuse Patient Records regulations: The Federal rules restrict any use of the information to criminally investigate or prosecute any alcohol or drug abuse patient.[facility] HospitalIn the event this information is protected by the Federal Confidentiality of Alcohol and Drug Abuse Patient Records regulations: The Federal rules restrict any use of the information to criminally investigate or prosecute any alcohol or drug abuse patient.[facility] HospitalIn the event this information is protected by the Federal Confidentiality of Alcohol and Drug Abuse Patient Records regulations: The Federal rules restrict any use of the information to criminally investigate or prosecute any alcohol or drug abuse patient.[facility] HospitalIn the event this information is protected by the Federal Confidentiality of Alcohol and Drug Abuse Patient Records regulations: The Federal rules restrict any use of the information to criminally investigate or prosecute any alcohol or drug abuse patient.[facility] HospitalIn the event this information is protected by the Federal Confidentiality of Alcohol and Drug Abuse Patient Records regulations: The Federal rules restrict any use of the information to criminally investigate or prosecute any alcohol or drug abuse patient.[facility]In the event this information is protected by the Federal Confidentiality of Alcohol and Drug Abuse Patient Records regulations: The Federal rules restrict any use of the information to criminally investigate or prosecute any alcohol or drug abuse patient.[facility] HospitalIn the event this information is protected by the Federal Confidentiality of Alcohol and Drug Abuse Patient Records regulations: The Federal rules restrict any use of the information to criminally investigate or prosecute any alcohol or drug abuse patient.[facility] HospitalIn the event this information is protected by the Federal Confidentiality of Alcohol and Drug Abuse Patient Records regulations: The Federal rules restrict any use of the information to criminally investigate or prosecute any alcohol or drug abuse patient.[facility] HospitalIn the event this information is protected by the Federal Confidentiality of Alcohol and Drug Abuse Patient Records regulations: The Federal rules restrict any use of the information to criminally investigate or prosecute any alcohol or drug abuse patient.[facility] HospitalIn the event this information is protected by the Federal Confidentiality of Alcohol and Drug Abuse Patient Records regulations: The Federal rules restrict any use of the information to criminally investigate or prosecute any alcohol or drug abuse patient.[facility] HospitalIn the event this information is protected by the Federal Confidentiality of Alcohol and Drug Abuse Patient Records regulations: The Federal rules restrict any use of the information to criminally investigate or prosecute any alcohol or drug abuse patient.[facility] HospitalIn the event this information is protected by the Federal Confidentiality of Alcohol and Drug Abuse Patient Records regulations: The Federal rules restrict any use of the information to criminally investigate or prosecute any alcohol or drug abuse patient.[facility] HospitalIn the event this information is protected by the Federal Confidentiality of Alcohol and Drug Abuse Patient Records regulations: The Federal rules restrict any use of the information to criminally investigate or prosecute any alcohol or drug abuse patient.[facility] HospitalIn the event this information is protected by the Federal Confidentiality of Alcohol and Drug Abuse Patient Records regulations: The Federal rules restrict any use of the information to criminally investigate or prosecute any alcohol or drug abuse patient.[facility]In the event this information is protected by the Federal Confidentiality of Alcohol and Drug Abuse Patient Records regulations: The Federal rules restrict any use of the information to criminally investigate or prosecute any alcohol or drug abuse patient.[facility] HospitalIn the event this information is protected by the Federal Confidentiality of Alcohol and Drug Abuse Patient Records regulations: The Federal rules restrict any use of the information to criminally investigate or prosecute any alcohol or drug abuse patient.[facility]In the event this information is protected by the Federal Confidentiality of Alcohol and Drug Abuse Patient Records regulations: The Federal rules restrict any use of the information to criminally investigate or prosecute any alcohol or drug abuse patient.[facility]In the event this information is protected by the Federal Confidentiality of Alcohol and Drug Abuse Patient Records regulations: The Federal rules restrict any use of the information to criminally investigate or prosecute any alcohol or drug abuse patient.[facility]In the event this information is protected by the Federal Confidentiality of Alcohol and Drug Abuse Patient Records regulations: The Federal rules restrict any use of the information to criminally investigate or prosecute any alcohol or drug abuse patient.[facility] HospitalIn the event this information is protected by the Federal Confidentiality of Alcohol and Drug Abuse Patient Records regulations: The Federal rules restrict any use of the information to criminally investigate or prosecute any alcohol or drug abuse patient.[facility]In the event this information is protected by the Federal Confidentiality of Alcohol and Drug Abuse Patient Records regulations: The Federal rules restrict any use of the information to criminally investigate or prosecute any alcohol or drug abuse patient.[facility]In the event this information is protected by the Federal Confidentiality of Alcohol and Drug Abuse Patient Records regulations: The Federal rules restrict any use of the information to criminally investigate or prosecute any alcohol or drug abuse patient.[facility] HospitalIn the event this information is protected by the Federal Confidentiality of Alcohol and Drug Abuse Patient Records regulations: The Federal rules restrict any use of the information to criminally investigate or prosecute any alcohol or drug abuse patient.[facility]In the event this information is protected by the Federal Confidentiality of Alcohol and Drug Abuse Patient Records regulations: The Federal rules restrict any use of the information to criminally investigate or prosecute any alcohol or drug abuse patient.[facility]In the event this information is protected by the Federal Confidentiality of Alcohol and Drug Abuse Patient Records regulations: The Federal rules restrict any use of the information to criminally investigate or prosecute any alcohol or drug abuse patient.[facility]In the event this information is protected by the Federal Confidentiality of Alcohol and Drug Abuse Patient Records regulations: The Federal rules restrict any use of the information to criminally investigate or prosecute any alcohol or drug abuse patient.[facility]In the event this information is protected by the Federal Confidentiality of Alcohol and Drug Abuse Patient Records regulations: The Federal rules restrict any use of the information to criminally investigate or prosecute any alcohol or drug abuse patient.[facility]In the event this information is protected by the Federal Confidentiality of Alcohol and Drug Abuse Patient Records regulations: The Federal rules restrict any use of the information to criminally investigate or prosecute any alcohol or drug abuse patient.[facility]In the event this information is protected by the Federal Confidentiality of Alcohol and Drug Abuse Patient Records regulations: The Federal rules restrict any use of the information to criminally investigate or prosecute any alcohol or drug abuse patient.[facility] HospitalIn the event this information is protected by the Federal Confidentiality of Alcohol and Drug Abuse Patient Records regulations: The Federal rules restrict any use of the information to criminally investigate or prosecute any alcohol or drug abuse patient.[facility] Reason for Visit (unrecogniz ed section [...] Acute Visit right knee pain- 1 w quileute ago Reason Comments 6 Month Exam Reason Comments Nonexudative Macular Degeneration Follow Up Bilateral, 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 Punctate Keratitis Bilateral Pseudophakia Bilateral Reason Comments Macular Degeneration Evaluation Reason Comments 6 Month Exam Reason Comments Consult post-nasal drip/ Vas omotor rhinitis/ tinnitus- sx for years Specialty Diagnoses / Procedures [facility] To [facility] - Otol[facility]ology Diagnoses PND (post-nasal drip) Vasomotor rhinitis Procedures CONSULT TO ENT OFFICE[facility] MDM 60-74 MINUTES Diego Huffman MD [address] [place] [address] Referral ID Status Reason Start Date Expiration Date Visits Requested Visits Authorized [id number] Pending Review PCP Requested Referral 03/02/2023 03/01/2024 1 1 Reason Comments Urinary Frequency Reason Comments Consult Urinary Frequency Benign Prostatic Hypertrophy Specialty Diagnoses / Procedures [facility] Referred To Contact Urology Diagnoses Urgency of urination Nocturia Benign prostatic hyperplasia with nocturia Procedures CONSULT TO UROLOGY OFFICE/OUTPATIENT [facility] 60-74 MINUTES Diego Huffman MD [address] [place] [address] Referral ID Status Reason Start Date Expiration Date Visits Requested Visits Authorized [id number] Pending Review PCP Requested Referral 07/08/2023 07/07/2024 1 1 Reason Comments 6 Month Exam Reason Comments Established Patient Benign Prostatic Hypertrophy Specialty Diagnoses / Procedures [facility] Referred To Contact Urology Diagnoses Benign prostatic hyperplasia with nocturia Urgency of urination Procedures CONSULT TO UROLOGY OFFICE/OUTPATIENT [facility] 60 MINUTES Diego Huffman MD [address] [place] [address] Referral ID Status Reason Start Date Expiration Date V isits Requested Visits Authorized [id number] Closed PCP Requested Referral 03/12/2024 03/12/2025 1 [...] of urination Procedures CONSULT TO UROLOGY OFFICE/OUTPATIENT [facility] 60 MINUTES Ana Resendez APRN.CNP [address] [place] [id number] Referral ID Status Reason Start Date Expiration Date V isits Requested Visits Authorized [id number] Closed PCP Requested Referral 08/29/2024 08/29/2025 1 1 Reason Comments New Pain Specialty Diagnoses / Procedures Referred By Contac t Referred To Contact Podiatry Diagnoses Foot pain, right Procedures CONSULT TO PODIATRY OFFICE/OUTPATIENT [facility] 60 MINUTES Diego Huffman MD [address] [place] [address] Referral ID Status Reason Start Date Expiration Date V isits Requested Visits Authorized [id number] Closed PCP Requested Referral 09/26/2024 09/26/2025 1 1 Reason Comments had audio today Ringing In Ear(s) For years right ear is louder than the left ear. 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 Procedures MRI BRAIN WO/W IVCON MRI BRAIN BRAIN STEM W/O W/CONTRAST MATERIAL Rosa Elena Ramon MD [address] [address] [facility] [place] [address] Referral ID Status Reason Start Date Expiration Date Visits Re quested Visits Authorized [id number] Closed 12/12/2024 11/27/2025 1 1 Reason Comments [...] RSPSE SPMTRY PRE&POST-BRNCDILAT ADMN Diego Huffman MD [address] [place] [address] Phone: tel: fax: [facility] [place] [address] Referral ID Status Reason Start Date Expiration Date V isits Requested Visits Authorized [id number] Closed Auto-Generate d Referral 04/28/2025 11/27/2025 1 1 Specialty Diagnoses / Procedures Referred By Connie t Referred To Contact [facility] Diagnoses Chronic cough Procedures LUNG VOLUMES PLETHYSMOGRAPHY LUNG VOLUMES W/WO AIRWAY RESIST Diego Huffman MD [address] [place] [address] Phone: tel: fax: [facility] [address] [place] [address] Referral ID Status Reason Start Date Expiration Date V isits Requested Visits Authorized [id number] Closed Auto-Generate d Referral 04/28/2025 11/27/2025 1 1 Care Teams (unrecognized sec tion and content) Custodial Aide Relationship Specialty Start Date End Date Diego Huffman MD [address] [place], [place] [id number] PCP - General Family Practice 09/01/21 Luis Cordero [facility] [place] [address] Consulting Cardiology 12/04/21 Custodial Aide Relationship Specialty Start Date End Date Diego Huffman MD [address] [place], [place] [id number] PCP - General Family Practice 09/01/21 Luis Cordero [facility] [place] [address] Consulting Cardiology 12/04/21 Custodial Aide Relationship Specialty Start Date End Date Diego Huffman MD [address] [place], [place] [id number] PCP - General Family Practice 09/01/21 Luis Cordero [facility] [place] [address] Consulting Cardiology 12/04/21 Custodial Aide Relationship Specialty Start Date End Date Diego Huffman MD [address] [place], [place] [id number] PCP - General Family Practice 09/01/21 Luis Cordero DO [facility] [place] [address] Consulting Cardiology 12/04/21 Custodial Aide Relationship Specialty Start Date End Date Diego Huffman MD [address] [place] [address] PCP - General Family Practice 09/01/21 Luis Cordero DO [facility] [place] [address] Consulting Cardiology 12/04/21 Custodial Aide Relationship Specialty Start Date End Date Diego Huffman MD [address] [place] [address] PCP - General Family Practice 09/01/21 Luis Cordero DO [facility] [place] [address] Consulting Cardiology 12/04/21 Custodial Aide Relationship Specialty Start Date End Date Diego Huffman MD [address] [place] [address] PCP - General Family Practice 09/01/21 Luis Cordero DO [facility] [place] [address] Consulting Cardiology 12/04/21 Custodial Aide Relationship Specialty Start Date End Date Diego Huffman MD [address] [place] [address] PCP - General Family Practice 09/01/21 Luis Cordero DO [facility] [place] [address] Consulting Cardiology 12/04/21 Custodial Aide Relationship Specialty Start Date End Date Diego Huffman MD [address] [place] [address] PCP - General Family Practice 09/01/21 Luis Cordero DO [facility] [place] [address] Consulting Cardiology 12/04/21 Custodial Aide Relationship Specialty Start Date End Date Diego Huffman MD [address] [place] [address] PCP - General Family Medicine 09/01/21 Luis Cordero DO [facility] [place] [address] Consulting Cardiology 12/04/21 Custodial Aide Relationship Specialty Start Date End Date Diego Huffman MD [address] [place] [address] PCP - General Family Medicine 09/01/21 Luis Cordero DO [facility] [place] [address] Consulting Cardiology 12/04/21 Custodial Aide Relationship Specialty Start Date End Date Diego Huffman MD [address] [place] [address] PCP - General Family Medicine 09/01/21 Luis Cordero DO [facility] [place] [address] Consulting Cardiology 12/04/21 Custodial Aide Relationship Specialty Start Date End Date Diego Huffman MD [address] [place] [address] PCP - General Family Medicine 09/01/21 Luis Cordero DO [facility] [place] [address] Consulting Cardiology 12/04/21 Custodial Aide Relationship Specialty Start Date End Date Diego Huffman MD [address] [place] [address] PCP - General Family Medicine 09/01/21 Luis Cordero DO [facility] [place] [address] Consulting Cardiology 12/04/21 Custodial Aide Relationship Specialty Start Date End Date Diego Huffman MD [address] [place] [address] PCP - General Family Medicine 09/01/21 Luis Cordero DO [address] [place] [address] Consulting Cardiology 12/04/21 Custodial Aide Relationship Specialty Start Date End Date Diego Huffman MD [address] [place] [address] PCP - General Family Medicine 09/01/21 Luis Cordero DO [address] [place] [address] Consulting Cardiology 12/04/21 Custodial Aide Relationship Specialty Start Date End Date Diego Huffman MD [address] [place] [address] PCP - General Family Medicine 09/01/21 Luis Cordero DO [address] [place] [address] Consulting Cardiology 12/04/21 Custodial Aide Relationship Specialty Start Date End Date Diego Huffman MD [address] [place] [address] PCP - General Family Medicine 09/01/21 Luis Cordero DO [address] [place] [address] Consulting Cardiology 12/04/21 Custodial Aide Relationship Specialty Start Date End Date Diego Huffman MD [address] [place] [address] PCP - General Family Medicine 09/01/21 Luis Cordero DO [address] [place], [place] [phone] Consulting Cardiology 12/04/21 Custodial Aide Relationship Specialty Start Date End Date Diego Huffman MD [address] [place], [place] 341651 PCP - General Family Medicine 09/01/21 Luis Cordero DO [facility] [address] [place], [place] [phone] Consulting Cardiology 12/04/21 Custodial Aide Relationship Specialty Start Date End Date Diego Huffman MD [address] [place] [address] PCP - General Family Medicine 09/01/21 Luis Cordero DO [facility] [address] [place], [place] [phone] Consulting Cardiology 12/04/21 Custodial Aide Relationship Specialty Start Date End Date Diego Huffman MD [address] [place] [address] PCP - General Family Medicine 09/01/21 Luis Cordero DO [address] [place], [place] [phone] Consulting Cardiology 12/04/21 Custodial Aide Relationship Specialty Start Date End Date Diego Huffman MD [address] [place], [place] 776501 PCP - General Family Medicine 09/01/21 Luis Cordero DO [address] [place] [address] Consulting Cardiology 12/04/21 Custodial Aide Relationship Specialty Start Date End Date Diego Huffman MD [address] [place], [place] 084701 PCP - General Family Medicine 09/01/21 Luis Cordero DO [address] [place], [place] [phone] Consulting Cardiology 12/04/21 Custodial Aide Relationship Specialty Start Date End Date Diego Huffman MD [address] [place] [address] PCP - General Family Medicine 09/01/21 Luis Cordero DO [address] [place], [place] [phone] Consulting Cardiology 12/04/21 Custodial Aide Relationship Specialty Start Date End Date Diego Huffman MD [address] [place] [address] PCP - General Family Medicine 09/01/21 Luis Cordero DO [address] [place] [address] Consulting Cardiology 12/04/21 Custodial Aide Relationship Specialty Start Date End Date Diego Huffman MD [address] [place] [address] PCP - General Family Medicine 09/01/21 Luis Cordero DO [address] [place] [address] Consulting Cardiology 12/04/21 Custodial Aide Relationship Specialty Start Date End Date Diego Huffman MD [address] [place] [address] PCP - General Family Medicine 09/01/21 Luis Cordero DO [address] [place] [address] Consulting Cardiology 12/04/21 Custodial Aide Relationship Specialty Start Date End Date Diego Huffman MD [address] [place] [address] PCP - General Family Medicine 09/01/21 Luis Cordero DO [address] [place] [address] Consulting Cardiology 12/04/21 Custodial Aide Relationship Specialty Start Date End Date Diego Huffman MD [address] [place], [place] 450201 PCP - General Family Medicine 09/01/21 Luis Cordero DO [address] [place] [address] Consulting Cardiology 12/04/21 Custodial Aide Relationship Specialty Start Date End Date Diego Huffman MD [address] [place] [address] PCP - General Family Medicine 09/01/21 Luis Cordero DO [address] [place] [address] Consulting Cardiology 12/04/21 Custodial Aide Relationship Specialty Start Date End Date Diego Huffman MD [address] [place] [address] PCP - General Family Medicine 09/01/21 Luis Cordero DO [address] [place] [phone] Consulting Cardiology 12/04/21 Ana Resendez MULTIPLE KNIFE EDGE TRIMMER OPERATOR.HOME ENERGY RATER [address] [facility] [place] [address] Study Assistant Family Medicine 11/05/24 Vicki Lomax MULTIPLE KNIFE EDGE TRIMMER OPERATOR.HOME ENERGY RATER [address] [place] [address] Study Assistant Family Medicine 11/05/24 Custodial Aide Relationship Specialty Start Date End Date Diego Huffman MD [address] [place] [address] PCP - General Family Medicine 09/01/21 Luis Cordero DO [address] [place] [address] Consulting Cardiology 12/04/21 Ana Resendez MULTIPLE KNIFE EDGE TRIMMER OPERATOR.HOME ENERGY RATER [address] [facility] [place] [address] Study Assistant Family Medicine 11/05/24 Vicki Lomax MULTIPLE KNIFE EDGE TRIMMER OPERATOR.HOME ENERGY RATER [address] [place] [address] Study Assistant Family Medicine 11/05/24 Custodial Aide Relationship Specialty Start Date End Date Diego Huffman MD [address] [place] [address] PCP - General Family Medicine 09/01/21 Luis Cordero DO [address] [place] [address] [phone] Consulting Cardiology 12/04/21 Ana Resendez, MULTIPLE KNIFE EDGE TRIMMER OPERATOR.HOME ENERGY RATER [address] [place] [address] Study Assistant Family Medicine 11/05/24 Vicki Lomax MULTIPLE KNIFE EDGE TRIMMER OPERATOR.HOME ENERGY RATER [address] [place] [address] Study Assistant Family Medicine 11/05/24 Custodial Aide Relationship Specialty Start Date End Date Diego Huffman MD [address] [place] [address] PCP - General Family Medicine 09/01/21 Luis Cordero DO [address] [place] [address] Consulting Cardiology 12/04/21 Ana Resendez, MULTIPLE KNIFE EDGE TRIMMER OPERATOR.HOME ENERGY RATER [address] [place] [address] Study Assistant Family Medicine 11/05/24 Vicki Lomax MULTIPLE KNIFE EDGE TRIMMER OPERATOR.HOME ENERGY RATER [address] [place] [address] Study Assistant Family Medicine 11/05/24 Custodial Aide Relationship Specialty Start Date End Date Diego Huffman MD [address] [place], [place] 6[address]994 [phone] PCP - General Family Medicine 09/01/21 Luis Cordero DO [address] [place], [place] [phone] Consulting Cardiology 12/04/21 Ana Resendez, SHARIFA.HOME ENERGY RATER [address] [place] [address] Study Assistant Family Medicine 11/05/24 Vicki Lomax MULTIPLE KNIFE EDGE TRIMMER OPERATOR.HOME ENERGY RATER [address] [place] [address] Study Assistant Family Medicine 11/05/24 Custodial Aide Relationship Specialty Start Date End Date Diego Huffman MD [address] [place], [place] 364441 PCP - General Family Medicine 09/01/21 Luis Cordero DO [address] [place], [place] [phone] Consulting Cardiology 12/04/21 Ana Resendez, MULTIPLE KNIFE EDGE TRIMMER OPERATOR.HOME ENERGY RATER [address] [place] [address] Study Assistant Family Medicine 11/05/24 Vicki Lomax MULTIPLE KNIFE EDGE TRIMMER OPERATOR.HOME ENERGY RATER [address] [place] [address] Study Assistant Family Medicine 11/05/24 Custodial Aide Relationship Specialty Start Date End Date Diego Huffman MD [address] [place] [address] PCP - General Family Medicine 09/01/21 Luis Cordero DO [address] [place], [place] [phone] Consulting Cardiology 12/04/21 Ana Resendez APRN.HOME ENERGY RATER [address] [place] [address] Study Assistant [facility] 11/05/24 Vicki Lomax APRN.HOME ENERGY RATER [address] [place] [address] Study Assistant [facility] 11/05/24 Custodial Aide Relationship Specialty Start Date End Date Diego Huffman MD [address] [place] [address] PCP - General Family Medicine 09/01/21 Luis Cordero DO [address] [place] [address] [phone] Consulting Cardiology 12/04/21 Ana Resendez, MULTIPLE KNIFE EDGE TRIMMER OPERATOR.HOME ENERGY RATER [address] [place] [address] [facility]/24 Vicki Lomax, MULTIPLE KNIFE EDGE TRIMMER OPERATOR.HOME ENERGY RATER [address] [place] [address] [facility] 11/05/24 Custodial Aide Relationship Specialty Start Date End Date Diego Huffman MD [address] [place], [place] 418321 PCP - General Family Medicine 09/01/21 Luis Cordero DO [address] [place], [place] [phone] Consulting Cardiology 12/04/21 Ana Resendez APRN.HOME ENERGY RATER [address] [facility] [place] [address] [facility] 11/05/24 Vicki Lomax APRN.HOME ENERGY RATER [address] [facility] [place] [address] [facility] 11/05/24 Custodial Aide Relationship Specialty Start Date End Date Diego Huffman MD [address] [place] [address] PCP - General Family Medicine 09/01/21 Luis Cordero DO [facility] [address] [place], [place] [phone] Consulting Cardiology 12/04/21 Ana Resendez APRN.HOME ENERGY RATER [address] [facility] [place] [address] [facility] 11/05/24 Vicki Lomax APRN.HOME ENERGY RATER [address] [place] [address] [facility] 11/05/24 Custodial Aide Relationship Specialty Start Date End Date Diego Huffman MD [address] [place] [address] PCP - General Family Medicine 09/01/21 Luis Cordero DO [address] [place] [address] Consulting Cardiology 12/04/21 Ana Resendez APRN.HOME ENERGY RATER [address] [facility] [place] [address] Study Assistant Family [facility] 11/05/24 Vicki Lomax APRN.HOME ENERGY RATER [address] [place] [address] [facility] 11/05/24 Custodial Aide Relationship Specialty Start Date End Date Diego Huffman MD [address] [place] [address] PCP - General Family Medicine 09/01/21 Luis Cordero DO [address] [place], [place] [phone] Consulting Cardiology 12/04/21 Ana Resendez MULTIPLE KNIFE EDGE TRIMMER OPERATOR.HOME ENERGY RATER [address] [place] [address] [facility] 11/05/24 Vicki Lomax MULTIPLE KNIFE EDGE TRIMMER OPERATOR.HOME ENERGY RATER [address] [place] [address] [facility] 11/05/24 Custodial Aide Relationship Specialty Start Date End Date Diego Huffman MD [address] [place] [address] PCP - General Family Medicine 09/01/21 Luis Cordero DO [address] [place], [place] [phone] Consulting Cardiology 12/04/21 Ana Resendez APRN.HOME ENERGY RATER [address] [place] [address] Study Assistant Family Medicine 11/05/24 Vicki Lomax APRN.HOME ENERGY RATER [address] [place] [address] [facility] 11/05/24 Custodial Aide Relationship Specialty Start Date End Date Diego Huffman MD [address] [place] [address] PCP - General Family Medicine 09/01/21 Luis Cordero DO [facility] [address] [place], [place] [phone] Consulting Cardiology 12/04/21 Ana Resendez APRN.HOME ENERGY RATER [address] [facility] [place] [address] [facility] 11/05/24 Vicki Lomax APRN.HOME ENERGY RATER [address] [place] [address] [facility] 11/05/24 Custodial Aide Relationship Specialty Start Date End Date Diego Huffman MD [address] [place] [address] PCP - General Family Medicine 09/01/21 Luis Cordero DO [facility] [place] [address] Consulting Cardiology 12/04/21 Ana Resendez APRN.HOME ENERGY RATER [address] [facility] [place] [address] [facility] 11/05/24 Vicki Lomax APRN.HOME ENERGY RATER [address] [facility], [place] 49[address] Study Assistant Family Medicine 11/05/24 Custodial Aide Relationship Specialty Start Date End Date Diego Huffman MD [address] [place], [place] 35[address]91 PCP - General Family Medicine 09/01/21 Luis Cordero DO [facility] [address] [place], [place] [phone] Consulting Cardiology 12/04/21 Ana Resendez, MULTIPLE KNIFE EDGE TRIMMER OPERATOR.HOME ENERGY RATER [address] [place] [address] Study Assistant Family Medicine 11/05/24 Vicki Lomax MULTIPLE KNIFE EDGE TRIMMER OPERATOR.HOME ENERGY RATER [address] [place] [address] Study Assistant Family Medicine 11/05/24 Custodial Aide Relationship Specialty Start Date End Date Diego Huffman MD [address] [place], [place] [address]1021 PCP - General Family Medicine 09/01/21 Luis Cordero DO [address] [place] [address] Consulting Cardiology 12/04/21 Ana Resendez, MULTIPLE KNIFE EDGE TRIMMER OPERATOR.HOME ENERGY RATER [address] [place] [address] Study Assistant Family Medicine 11/05/24 Vicki Lomax MULTIPLE KNIFE EDGE TRIMMER OPERATOR.HOME ENERGY RATER [address] [place] [address] Study Assistant Family Medicine 11/05/24 Custodial Aide Relationship Specialty Start Date End Date Diego Huffman MD [address] [place], [place] [id number] PCP - General Family Medicine 09/01/21 Luis Cordero DO [address] [place] [place], [place] [phone] Consulting Cardiology 12/04/21 Ana Resendez APRN.HOME ENERGY RATER [address] [place], [place] 336271 Study Assistant [facility] 11/05/24 Vicki Lomax APRN.HOME ENERGY RATER [address] [place], [place] 405431 Study Assistant Family [facility] 11/05/24 (unrecognized sect ion and content) No Status Records FoundNo Status Records FoundNo Status Records Found INFORMATION SOURCE (unrecogn ized section and content) DATE CREATED AUTHOR 03/05/2022 [facility] DATE CREATED AUTHOR AUTHOR'S ORGANIZ ATION 08/28/2024 [facility] DATE CREATED AUTHOR AUTHOR'S ORGANIZ ATION 05/28/2025 [...] BE BASED ON THE PRIMARY CLINICAL RECORDS. [employer] provides no warranty or guarantee of the accuracy or completeness of information in this document.
--- OUTSIDE RECORDS SUMMARY | 2025-06-02 16:12 | XMS RPT_ITS | CCD ---
Author Organization [facility] CliniSyct Care Team Providers Care Rubber Tester Name Role Phone Diego Huffman MD Primary Care Provider Luis Cordero DO Unavailable Diego Huffman Primary Care Unavailable Juan Luis Hughes Attending Unavailable Diego Huffman MD Primary Care Provider Luis Cordero DO Unavailable Haagen FERRYBOAT OPERATOR.ASSESSMENT MANAGER, Ana Unavailable Suppan FERRYBOAT OPERATOR.ASSESSMENT MANAGER, Vicki A Unavailable Suppan FERRYBOAT OPERATOR.ASSESSMENT MANAGER, Vicki A Unavailable [phone] Suppan FERRYBOAT OPERATOR.ASSESSMENT MANAGER, Vicki A Unavailable [phone] BHANU RICHARDS Referring Unavailable DIEGO HUFFMAN Primary [...] ARMIDA, DIEGO Watson Attending Unavailable ARMIDA, DIEGO [place] Referring Unavailable ARMIDA, DIEGO Watson Primary Care [...] Primary Care Unavailable CORNELIUS DASILVA Attending Unavailable ARMIAD, DIEGO Watson Primary Care Unavailable NARCISO JAQUEZ Attending UnavailSEBASTIAN Steen Referring Unavailable ARMIDA, DIEGO Watson Primary Care Unavailable ARMIDA, DIEGO Watson Primary Care Unavailable ROSA ELENA COHEN Referring Unavailable ARMIDA, DIEGO Watson Primary Care Unavailable Allergies Allergy Classification Reported Allergen(s) Allergy Type Date of Onset Reaction(s) Facility (20 sources) Lisinopril; Translations: [LISINOPRIL] Drug Allergy 04-09-2013 Cough [facility] Medications Current Medications Medication Drug Class(es) Dates Sig (Normalized) Sig (Original) amLODIPine 2.5 mg oral tablet (20 sources) Dihydropyridine Calcium Channel Dariel Start: 09-01-2021 End: 07-11-2025 take 1 tablet by mouth once daily amLODIPine (NORVASC) 2.5 mg tablet Indications: Essential hypertension, benign Take 1 tablet by mouth once daily. 90 tablet 3 07/11/2024 07/11/2025 Active Comment on above: Take 1 tablet by toino once daily. ascorbic acid 500 mg oral tablet (20 sources) Vitamin C Start: 01-23-2014 take 2 tablets by mouth once daily ascorbic acid (VITAMIN C) 500 mg tablet Take 2 tablets by mouth once daily. 0 01/23/2014 Active Comment on above: Take 2 tablets by mo [facility] once daily. aspirin 81 mg delayed [...] Comment on above: Take 2 tablets by [facility] twice daily for 10 days. iv [...] Comment on above: Take 1 tablet by [facility] once daily. MULTI-VITAMIN ORAL (20 sources) [...] on above: Take 1 capsule by mo [facility] once daily. oseltamivir 75 mg oral [...] sources) Anticholinergic Start: 04-06-2023 End: 09-14-2024 Ipratropium [place] (ATROVENT) 21 mcg (0.03 %) nasal spray [...] as needed (pain/inflammation, take with food.). nystatin [id number] unt/ml topical cream (9 sources) Polyene Antifungal [...] Test Name Value Interpretation Reference Range Facility [facility] 05-24-2025 [facility] Telephone (PODIWS) MAXIMO NIXON ([id number]) 1940 M Date Time Provider Department 05/24/25 ROSA ELENA COHEN During your visit today, we recorded the following information about you: Amber Villa LPN 05/27/2025 10:32 AM Signed Rosa Elena Cohen [facility] Podiatry Pool3 days ago Please call patient [...] Status:Closed by AMBER VILLA on 05/27/25 Normal [facility] US FOOT RTon 05-23-2025 US FOOT RT [...] THIRD INTERMETATARSAL SPACES WITH MILD SURROUNDING BURSITIS. 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 Acid Extractor: Rated People Transcribe Date/Time: May 23 2025 1:57P Dictated [...] joints appear intact. DIVISION OF RADIOLOGY Provider, [facility] - 05/23/2025 * * *Final Report* * [...] THIRD INTERMETATARSAL SPACES WITH MILD SURROUNDING BURSITIS. Acid Extractor: MALLY Transcribe Date/Time: May 23 2025 1:57P Dictated by : TIMMY QUINN MD This examination was interpreted and the report reviewed and electronically signed by: TIMMY QUINN MD on May 23 2025 2:07PM 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 Lung Volumes are repeatable x3. 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1940 Requested By: Order Number: [id number] Reading MD: Mitzy Minor MD Interpretive Statements [...] 16:01:34 EDT by Mitzy Minor MD ID: [id number] Name: MAXIMO NIXON Race: White Ht: 72.40 [...] 90-100 0.76 48 FIVC 3.44 3.55 3 IBX26-13 0.88 0.75 2.05 3.99 43 -1.42 1.42 [...] 75 % FEV1/FVC_LLN (%) : 60 % JJI04_LJF (L/S) : 4.86 L/S CUS71_KDHT (L/S) : 5.26 L/S VKG51_BDP (L/S) : 0.35 L/S UTN61_ZQIV (L/S) : 0.38 L/S ADM84_SOMA (L/S) : 0.50 L/S SKW09_IAS (L/S) : 0.16 L/S DET50_EYE (L/S) : 1.46 L/S HEM67-62%_PRE (L/S) : 0.88 L/S ZHF43-42%_POST (L/S) : 1.42 L/S DIA55-39%_PRED (L/S) : 2.05 L/S IBP48-03%_LLN (L/S) : 0.75 L/S PEF_PRE (L/S) : [...] % RV_TLC_PLETH_PRED (%) : 41 % Normal [facility] ([id number]) 1940 M Date Time Provider Department 04/26/25 [...] to swallow. - Recent episodes after eating austrian and also Martiniquais steak. - Unable to finish meals due [...] maintenance iss (more content not included)... Normal [facility] XR CHEST 2V FRONTAL/LATon XR CHEST [...] cardiac surgery and no acute radiographic abnormality. Acid Extractor: MALLY Transcribe Date/Time: Apr 27 2025 10:28A Dictated by : ROXANNA LAZAR MD This examination was interpreted and the report reviewed and electronically signed by: ORXANNA LAZAR MD on Apr 27 2025 10:29AM EST [id number] Normal [facility] CNOVon 04-23-2025 CNOV Office Visit (UROLMD ) NIXONMAXIMO ([id number]) 1940 M Date Time Provider Department 04/23/25 11:20 AM STACIE HOOD UROLMD During your visit today, we recorded the following information about you: Weight Height 92.5 kg 1.854 m Mikey Dacosta MA 04/23/2025 12:59 PM Signed Post void bladder scan completed. 0 ml residual remaining. Results reported to KALEB Landeros Becky J, FERRYBOAT OPERATOR.KALEB 04/23/2025 12:59 PM Signed Maximo Nixon is [...] prescribed mckenzie (more content not included)... Normal [facility] CNOVon 04-12-2025 CNOV Office Visit (PODIWS ) MAXIMO NIXON ([id number]) 1940 M Date Time Provider Department 04/12/25 [...] Patient understands (more content not included)... Normal [facility] 04-12-2025 CNPN Telephone (RULTTB) MAXIMO NIXON ([id number]) 1940 M Date Time Provider Department 04/12/25 [...] US on 05/23/25 at 2:25 PM at [place]. Allergies As of Date: 04/12/2025 Noted Allergy [...] Status:Closed by JAISON GUALLPA on 04/12/25 Normal [facility] XR CERVICAL 4V AP/LAT/OBLon 04-12-2025 XR CERVICAL [...] normal. COMBINED IMPRESSION: Degenerative changes as described. Acid Ext[facility] Transcribe Date/Time: Apr 16 2025 8:23P Dictated by : TIMMY QUINN MD This examination was interpreted and the report reviewed and electronically signed by: TIMMY QUINN MD on Apr 16 2025 8:24PM EST [id number] Normal [facility] XR CERVICAL SPECIFY 1Von XR CERVICAL SPECIFY [...] normal. COMBINED IMPRESSION: Degenerative changes as described. Acid Extractor: PSCB Transcribe Date/Time: Apr 16 2025 8:23P Dictated by : TIMMY QUINN MD This examination was interpreted and the report reviewed and electronically signed by: TIMMY QUINN MD on Apr 16 2025 8:24PM EST [id number] Normal [facility] XR FOOT 3V AP/LAT/OBL BILon 04-12-2025 XR [...] osseous erosion. IMPRESSION: No acute bony abnormality. Acid Extractor: MALLY Transcribe Date/Time: Apr 16 2025 8:22P Dictated by : TIMMY QUINN MD This examination was interpreted and the report reviewed and electronically signed by: TIMMY QUINN MD on Apr 16 2025 8:23PM EST [id number] Normal [facility] 04-09-2025 [facility] Telephone (MARA) MAXIMO NIXON ([id number]) 1940 M Date Time Provider Department 04/09/25 [...] Encounter Status:Closed by GAIL KEVIN on 04/09/25 [facility]20[facility] MAXIMO NIXON ([id number]) 1940 M Date Time Provider Department 03/27/25 [...] Encounter Status:Closed by NARCISO JAQUEZ on 04/03/25 [facility] CNOVon 03-20-2025 CNOV Office Visit (UROLMD ) MAXIMO NIXON ([id number]) 1940 M Date Time Provider Department 03/20/25 9:30 AM NARCISO JAQUEZ UROLMD During your visit today, we recorded the following information about you: Pulse Respiration Blood pressure Weight 61/minute 16/minute 170/84 92.5 kg Height 1.854 m Narciso Jaquez MD 03/20/2025 10:17 AM Signed [facility] UROLOGY PROCEDURE NOTE [facility] ([facility]) FLEXIBLE CYSTOURETHROSCOPY AND TRUS UROLOGY OUTPATIENT PROCEDURE NOTE UNIVERSAL PROTOCOL AND SAFETY CHECKLISTUNIVERSAL PROTOCOL / SAFETY CHECKLIST Procedure to be Performed: Cysto/TRUS Referral by: Humberto Dasilva APRN.ASSESSMENT MANAGER.DNP Indication: Bladder overactivity Sign In: A Moment [...] weeks Narciso Jaquez MD, MS Associate Staff [facility] [place] [facility] Narciso Jaquez MD 03/20/2025 10:02 AM [...] not clear with increased fluids. PHONE NUMBERS: [phone] [place] [phone] PETTY HOPKINTON [phone] [place] Allergies As of Date: 03/20/2025 Noted Allergy Reacti (more content not included)... Normal [facility] ES CYSTOSCOPY (POC) FOR UROL OGY USE ONLYon 03-20-2025 [facility] Radiology Study observation (narrative) [facility] UA DIP, URINE (POC)on 2024 BILIRUBIN UA (POCT) Negative Negative [facility] CLARITY UA (POCT) Clear [facility] COLOR UA (POCT) Yellow [facility] GLUCOSE UA (POCT) Negative Negative mg/dL [facility] Hemoglobin Ql (U) Negative Negative [facility] Interpretation and review of laboratory results Abnormal [facility] KETONE UA (POCT) Negative Negative mg/dL [facility] LEUKOCYTES UA (POCT) Negative Negative [facility] NITRITE UA (POCT) Negative Negative [facility] PH UA (POCT) 5.5 4.5 - 8.0 [facility] Protein Ql (U) Trace Abnormal Negative mg/dL [facility] SPECIFIC GRAVITY UA (POCT) >=1.030 1.005 - 1.030 [facility] UROBILINOGEN UA (POCT) 0.2 Normal E.U./dL [facility] Location:[facility], [address] [place], [address] [facility] POINT OF CARE [facility] US Prostate transrectalon [facility] Radiology Study observation (narrative) [facility] CNOVon 03-15-2025 CNOV Office Visit (FAMPWS ) KRYSTYNAMAXIMO ([id number]) 1940 M Date Time Provider Department 03/15/25 3:00 PM [facility] During your visit today, we [...] Lymph 1.00 - 4.00 k/uL 1.39 1.26 [place]% % 12.4 12.3 Abs [place] <0.87 k/uL 0.56 0.50 Eosin% % 2.4 [...] and negative (more content not included)... Normal [facility] CBC W Auto Differential pane l (Bld)on 03-08-2025 Basophils (Bld) [#/Vol] 0.05 10*3/uL Normal <0.11 [facility] Comment on above: Order Comment: Speci men Type: BLOOD SPECIMENOrdering Facility: [facility] Address: [address] [place] [address] Performed By: #### 5 7021-8 ####[facility] MIAMIWWILIA [id number] [place] [address] [place] Basophils/100 WBC (Bld) 1.2 % Normal [facility] Comment on above: Order Comment: Speci men Type: BLOOD SPECIMENOrdering Facility: [facility] Address: [address] [place] [address] Performed By: #### 5 7021-8 ####[facility] [id number] [place] [address] [place] Differential cell count method Nom (Bld) Auto Normal [facility] Comment on above: Order Comment: Speci men Type: BLOOD SPECIMENOrdering Facility: [facility] Address: [address] [place] [address] Performed By: #### 5 7021-8 ####[facility]ITAL[facility] [id number] [place] [address] [place] Eosinophils (Bld) [#/Vol] 0.11 10*3/uL Normal <0.46 [facility] Comment on above: Order Comment: Speci men Type: BLOOD SPECIMENOrdering Facility: [facility] Address: [address] [place] [address] Performed By: #### 5 7021-8 ####[facility] [id number] [place] [address] [place] Eosinophils/100 WBC (Bld) 2.7 % Normal [facility] Comment on above: Order Comment: Speci men Type: BLOOD SPECIMENOrdering Facility: [facility] Address: [address] [place] [address] Performed By: #### 5 7021-8 ####[facility] ROBINSONFRISCO CITYNCLIA [id number] [place] [address] [place] Erythrocyte distribution width (RBC) [Ratio] 13.2 % Normal 11.5-15.0 [facility] Comment on above: Order Comment: Speci men Type: BLOOD SPECIMENOrdering Facility: [facility] Address: [address] [place] [address] Performed By: #### 5 7021-8 ####[facility]ENTERLI [id number] [place] [address] [place] Hematocrit (Bld) [Volume fraction] 48.0 % Normal 39.0-51.0 [facility] Comment on above: Order Comment: Speci men Type: BLOOD SPECIMENOrdering Facility: [facility] Address: [address] [place] [address] Performed By: #### 5 7021-8 ####[facility] [id number] [place] [address] [place] Hemoglobin (Bld) [Mass/Vol] 16.7 g/dL Normal 13.0-17.0 [facility] Comment on above: Order Comment: Speci men Type: BLOOD SPECIMENOrdering Facility: [facility] Address: [address] [place] [address] Performed By: #### 5 7021-8 ####[facility] CENTERLIA [id number] [place] [address] [place] Immature granulocytes (Bld) [#/Vol] 10*3/uL Normal <0.10 [facility] Comment on above: Order Comment: Speci men Type: BLOOD SPECIMENOrdering Facility: [facility] Address: [address] [place] [address] Performed By: #### 5 7021-8 ####[facility] [id number] [place] [address] [place] Immature granulocytes/100 WBC (Bld) 0.2 % Normal [facility] Comment on above: Order Comment: Speci men Type: BLOOD SPECIMENOrdering Facility: [facility] Address: [address] [place] [address] Performed By: #### 5 7021-8 ####[facility] [id number] [place] [address] [place] Lymphocytes (Bld) [#/Vol] 1.26 10*3/uL Normal 1.00-4.00 [facility] Comment on above: Order Comment: Speci men Type: BLOOD SPECIMENOrdering Facility: [facility] Address: [address] [place] [address] Performed By: #### 5 7021-8 ####[facility]ENCYNCS[facility] [id number] [place] [address] [place] Lymphocytes/100 WBC (Bld) 30.9 % Normal [facility] Comment on above: Order Comment: Speci men Type: BLOOD SPECIMENOrdering Facility: [facility] Address: [address] [place] [address] Performed By: #### 5 7021-8 ####[facility] EMERGENCYNCLI [id number] [place] [address] [place] MCH (RBC) [Entitic mass] 32.1 pg Normal 26.0-34.0 [facility] Comment on above: Order Comment: Speci men Type: BLOOD SPECIMENOrdering Facility: [facility] Address: [address] [place] [address] Performed By: #### 5 7021-8 ####[facility] EMERGENCYNCLI [id number] [place] [address] [place] MCHC (RBC) [Mass/Vol] 34.8 g/dL Normal 30.5-36.0 [facility] Comment on above: Order Comment: Speci men Type: BLOOD SPECIMENOrdering Facility: [facility] Address: [address] [place] [address] Performed By: #### 5 7021-8 ####[facility] ROBINSONFRISCO CITYNCLIFeli [id number] [place] [address] [place] MCV (RBC) [Entitic vol] 92.1 fL Normal 80.0-100.0 [facility] Comment on above: Order Comment: Speci men Type: BLOOD SPECIMENOrdering Facility: [facility] Address: [address] [place] [address] Performed By: #### 5 7021-8 ####[facility] EMERGENCYNCLI [id number] [place] [address] [place] Monocytes (Bld) [#/Vol] 0.50 10*3/uL Normal <0.87 [facility] Comment on above: Order Comment: Speci men Type: BLOOD SPECIMENOrdering Facility: [facility] Address: [address] [place] [address] Performed By: #### 5 7021-8 ####[facility] EMERGENCYNCLIA [id number] [place] [address] [place] Monocytes/100 WBC (Bld) 12.3 % Normal [facility] Comment on above: Order Comment: Speci men Type: BLOOD SPECIMENOrdering Facility: [facility] Address: [address] [place] [address] Performed By: #### 5 7021-8 ####[facility] EMERGENCYNCLIA [id number] [place] [address] [place] Neutrophils (Bld) [#/Vol] 2.15 10*3/uL Normal 1.45-7.50 [facility] Comment on above: Order Comment: Speci men Type: BLOOD SPECIMENOrdering Facility: [facility] Address: [address] [place] [address] Performed By: #### 5 7021-8 ####[facility] ROBINSONWNCLIA [id number] [place] [address] [place] Neutrophils/100 WBC (Bld) 52.7 % Normal [facility] Comment on above: Order Comment: Speci men Type: BLOOD SPECIMENOrdering Facility: [facility] Address: [address] [place] [address] Performed By: #### 5 7021-8 ####[facility]ENTERLIA [id number] [place] [address] [place] Nucleated RBC (Bld) [#/Vol] 10*3/uL Normal <0.01 [facility] Comment on above: Order Comment: Speci men Type: BLOOD SPECIMENOrdering Facility: [facility] Address: [address] [place] [address] Performed By: #### 5 7021-8 ####[facility] CENTERLIA [id number] [place] [address] [place] Nucleated RBC/100 WBC (Bld) [Ratio] 0.0 /100 WBC Normal [facility] Comment on above: Order Comment: Speci men Type: BLOOD SPECIMENOrdering Facility: [facility] Address: [address] [place] [address] Performed By: #### 5 7021-8 ####[facility] CENTERLIA [id number] [place] [address] [place] Platelet mean volume (Bld) [Entitic vol] 9.1 fL Normal 9.0-12.7 [facility] Comment on above: Order Comment: Speci men Type: BLOOD SPECIMENOrdering Facility: [facility] Address: [address] [place] [address] Performed By: #### 5 7021-8 ####[facility]ENTERLIA [id number] [place] [address] [place] Platelets (Bld) [#/Vol] 197 10*3/uL Normal 150-400 [facility] Comment on above: Order Comment: Speci men Type: BLOOD SPECIMENOrdering Facility: [facility] Address: [address] [place] [address] Performed By: #### 5 7021-8 ####[facility] EMERGENCYNCLINDAA [id number] [place] [address] [place] RBC (Bld) [#/Vol] 5.21 10*6/uL Normal 4.20-6.00 [facility] Comment on above: Order Comment: Speci men Type: BLOOD SPECIMENOrdering Facility: [facility] Address: [address] [place] [address] Performed By: #### 5 7021-8 ####[facility]GENCYNCLIA [id number] [place] [address] [place] WBC (Bld) [#/Vol] 4.08 10*3/uL Normal 3.70-11.00 [facility] Comment on above: Order Comment: Speci men Type: BLOOD SPECIMENOrdering Facility: [facility] Address: [address] [place] [address] Performed By: #### 5 7021-8 ####[facility] EMERGENCYNCLIA [id number] [place] [address] [place] CNOVon 03-03-2025 CNOV Office Visit (UCWSTR ) MAXIMO NIXON ([id number]) 1940 M Date Time Provider Department 03/03/25 2:00 PM AMANDA ZAVALA UCWSTR During your visit today, we recorded the following information about you: Temperature Pulse Respiration Blood pressure 97.3 degrees 68/minute 18/minute 131/81 Weight 93.1 kg Amanda Zavala APRN.ASSESSMENT MANAGER 03/03/2025 2:54 PM Signed [facility] [...] history is provided by the patient. No freight car builder was used. Sore Throat Review of Systems [...] with primary care to talk about possible junior systems analyst due to chronic sinus congestion and drainage. Patient says he has had drainage for many years. This could be a cause for the sore throat due to season changes. Patient agreeable to following up with PCP Amanda Zavala APRN.ASSESSMENT MANAGER MDM Procedures Allergies As of Date: 03/03/2025 Noted Allergy Reaction LISINOPRIL 04/09/2013 3 - Cough Date Reviewed: 03/03/2025 Reviewed by: Ayla Porras OCCA - Fully Assessed Reason (more content not included)... Normal [facility] STREP A MOLECULAR (POC)on Procedural Control Valid [facility] Strep A (POCT) Negative Negative [facility] CNPNon 02-28-2025 CNPN Telephone (PUMT) MAXIMO NIXON ([id number]) 1940 M Date Time Provider Department 02/28/25 DIEGO HUFFMAN [place] During your visit today, we recorded the [...] BLOOD COUNT AND DIFFERENTIAL [SQCBCDIF] Order #: [id number] FUTURE CARBOXYHEMOGLOBIN ELLE [SQCO] Order #: [id number] FUTURE Prescriptions as of 02/28/2025 - Trospium [...] Status:Closed by LINNETTE MUNOZ on 02/28/25 Normal [facility] CBC W Auto Differential pane l (Bld)on 02-27-2025 Basophils (Bld) [#/Vol] 0.04 10*3/uL Normal <0.11 [facility] Comment on above: Order Comment: Speci men Type: BLOOD SPECIMENOrdering Facility: [facility] Address: [address] [place] [address] Performed By: #### 5 7021-8 ####[facility] ROBINSONWNCLIA [id number] [place] [address] [place] Basophils/100 WBC (Bld) 0.9 % Normal [facility] Comment on above: Order Comment: Speci men Type: BLOOD SPECIMENOrdering Facility: [facility] Address: [address] [place] [address] Performed By: #### 5 7021-8 ####[facility]ENTERLIA [id number] [place] [address] [place] Differential cell count method Nom (Bld) Auto Normal [facility] Comment on above: Order Comment: Speci men Type: BLOOD SPECIMENOrdering Facility: [facility] Address: [address] [place] [address] Performed By: #### 5 7021-8 ####[facility]OSPITALA [id number] [place] [address] [place] Eosinophils (Bld) [#/Vol] 0.11 10*3/uL Normal <0.46 [facility] Comment on above: Order Comment: Speci men Type: BLOOD SPECIMENOrdering Facility: [facility] Address: [address] [place] [address] Performed By: #### 5 7021-8 ####[facility] MILLWNCLIA [id number] [place] [address] [place] Eosinophils/100 WBC (Bld) 2.4 % Normal [facility] Comment on above: Order Comment: Speci men Type: BLOOD SPECIMENOrdering Facility: [facility] Address: [address] [place] [address] Performed By: #### 5 7021-8 ####[facility] ROBINSONFRISCO CITYJOHANLIA [id number] [place] [address] [place] Erythrocyte distribution width (RBC) [Ratio] 13.2 % Normal 11.5-15.0 [facility] Comment on above: Order Comment: Speci men Type: BLOOD SPECIMENOrdering Facility: [facility] Address: [address] [place] [address] Performed By: #### 5 7021-8 ####[facility]ENTERLI [id number] [place] [address] [place] Hematocrit (Bld) [Volume fraction] 51.3 % High 39.0-51.0 [facility] Comment on above: Order Comment: Speci men Type: BLOOD SPECIMENOrdering Facility: [facility] Address: [address] [place] [address] Performed By: #### 5 7021-8 ####[facility] [id number] [place] [address] [place] Hemoglobin (Bld) [Mass/Vol] 17.6 g/dL High 13.0-17.0 [facility] Comment on above: Order Comment: Speci men Type: BLOOD SPECIMENOrdering Facility: [facility] Address: [address] [place] [address] Performed By: #### 5 7021-8 ####[facility]ITALA [id number] [place] [address] [place] Immature granulocytes (Bld) [#/Vol] 10*3/uL Normal <0.10 [facility] Comment on above: Order Comment: Speci men Type: BLOOD SPECIMENOrdering Facility: [facility] Address: [address] [place] [address] Performed By: #### 5 7021-8 ####[facility] [id number] [place] [address] [place] Immature granulocytes/100 WBC (Bld) 0.4 % Normal [facility] Comment on above: Order Comment: Speci men Type: BLOOD SPECIMENOrdering Facility: [facility] Address: [address] [place] [address] Performed By: #### 5 7021-8 ####[facility]ENCYNCSALT [facility] [id number] [place] [address] [place] Lymphocytes (Bld) [#/Vol] 1.39 10*3/uL Normal 1.00-4.00 [facility] Comment on above: Order Comment: Speci men Type: BLOOD SPECIMENOrdering Facility: [facility] Address: [address] [place] [address] Performed By: #### 5 7021-8 ####[facility] [id number] [place] [address] [place] Lymphocytes/100 WBC (Bld) 30.7 % Normal [facility] Comment on above: Order Comment: Speci men Type: BLOOD SPECIMENOrdering Facility: [facility] Address: [address] [place] [address] Performed By: #### 5 7021-8 ####[facility] [id number] [place] [address] [place] MCH (RBC) [Entitic mass] 31.3 pg Normal 26.0-34.0 [facility] Comment on above: Order Comment: Speci men Type: BLOOD SPECIMENOrdering Facility: [facility] Address: [address] [place] [address] Performed By: #### 5 7021-8 ####[facility] [id number] [place] [address] [place] MCHC (RBC) [Mass/Vol] 34.3 g/dL Normal 30.5-36.0 [facility] Comment on above: Order Comment: Speci men Type: BLOOD SPECIMENOrdering Facility: [facility] Address: [address] [place] [address] Performed By: #### 5 7021-8 ####[facility]GENCYTRISTEN [id number] [place] [address] [place] MCV (RBC) [Entitic vol] 91.3 fL Normal 80.0-100.0 [facility] Comment on above: Order Comment: Speci men Type: BLOOD SPECIMENOrdering Facility: [facility] Address: [address] [place] [address] Performed By: #### 5 7021-8 ####[facility]ENCYNCSALT [facility] [id number] [place] [address] [place] Monocytes (Bld) [#/Vol] 0.56 10*3/uL Normal <0.87 [facility] Comment on above: Order Comment: Speci men Type: BLOOD SPECIMENOrdering Facility: [facility] Address: [address] [place] [address] Performed By: #### 5 7021-8 ####[facility]ITALA [id number] [place] [address] [place] Monocytes/100 WBC (Bld) 12.4 % Normal [facility] Comment on above: Order Comment: Speci men Type: BLOOD SPECIMENOrdering Facility: [facility] Address: [address] [place] [address] Performed By: #### 5 7021-8 ####[facility]ERGENCYNCLIA [id number] [place] [address] [place] Neutrophils (Bld) [#/Vol] 2.41 10*3/uL Normal 1.45-7.50 [facility] Comment on above: Order Comment: Speci men Type: BLOOD SPECIMENOrdering Facility: [facility] Address: [address] [place] [address] Performed By: #### 5 7021-8 ####[facility] ROBINSONWJOHANLIA [id number] [place] [address] [place] Neutrophils/100 WBC (Bld) 53.2 % Normal [facility] Comment on above: Order Comment: Speci men Type: BLOOD SPECIMENOrdering Facility: [facility] Address: [address] [place] [address] Performed By: #### 5 7021-8 ####[facility] ROBINSONFRISCO CITYJOHANLIA [id number] [place] [address] [place] Nucleated RBC (Bld) [#/Vol] 10*3/uL Normal <0.01 [facility] Comment on above: Order Comment: Speci men Type: BLOOD SPECIMENOrdering Facility: [facility] Address: [address] [place] [address] Performed By: #### 5 7021-8 ####[facility] [id number] [place] [address] [place] Nucleated RBC/100 WBC (Bld) [Ratio] 0.0 /100 WBC Normal [facility] Comment on above: Order Comment: Speci men Type: BLOOD SPECIMENOrdering Facility: [facility] Address: [address] [place] [address] Performed By: #### 5 7021-8 ####[facility]ENTERRICH [id number] [place] [address] [place] Platelet mean volume (Bld) [Entitic vol] 9.1 fL Normal 9.0-12.7 [facility] Comment on above: Order Comment: Speci men Type: BLOOD SPECIMENOrdering Facility: [facility] Address: [address] [place] [address] Performed By: #### 5 7021-8 ####[facility] CENTERLIA [id number] [place] [address] [place] Platelets (Bld) [#/Vol] 189 10*3/uL Normal 150-400 [facility] Comment on above: Order Comment: Speci men Type: BLOOD SPECIMENOrdering Facility: [facility] Address: [address] [place] [address] Performed By: #### 5 7021-8 ####[facility] MIAMIWNCLIA [id number] [place] [address] [place] RBC (Bld) [#/Vol] 5.62 10*6/uL Normal 4.20-6.00 [facility] Comment on above: Order Comment: Speci men Type: BLOOD SPECIMENOrdering Facility: [facility] Address: [address] [place] [address] Performed By: #### 5 7021-8 ####[facility] EMERGENCYNCA [id number] [place] [address] [place] WBC (Bld) [#/Vol] 4.53 10*3/uL Normal 3.70-11.00 [facility] Comment on above: Order Comment: Speci men Type: BLOOD SPECIMENOrdering Facility: [facility] Address: [address] [place] [address] Performed By: #### 5 7021-8 ####[facility]ERGENCYNCLIA [id number] [place] [address] [place] Comprehensive metabolic 2000 panelon 02-27-2025 Albumin [Mass/Vol] 4.2 g/dL Normal 3.9-4.9 [facility] Comment on above: Order Comment: Speci men Type: BLOOD SPECIMENOrdering Facility: [facility] Address: [address] [place] [address] Performed By: #### 2 4323-8 ####[facility]ERGENCYNCLIA [id number] [place] [address] [place] ALP [Catalytic activity/Vol] 65 U/L Normal 38-113 [facility] Comment on above: Order Comment: Speci men Type: BLOOD SPECIMENOrdering Facility: [facility] Address: [address] [place] [address] Performed By: #### 2 4323-8 ####[facility] ROBINSONArikNCLIA [id number] [place] [address] [place] ALT [Catalytic activity/Vol] 12 U/L Normal 10-54 [facility] Comment on above: Order Comment: Speci men Type: BLOOD SPECIMENOrdering Facility: [facility] Address: [address] [place] [address] Performed By: #### 2 4323-8 ####[facility]ERGENCYNCA [id number] [place] [address] [place] Anion gap [Moles/Vol] 6 mmol/L Low 8-15 [facility] Comment on above: Order Comment: Speci men Type: BLOOD SPECIMENOrdering Facility: [facility] Address: [address] [place] [address] Performed By: #### 2 4323-8 ####[facility] EMERGENCYNCLIA [id number] [place] [address] [place] AST [Catalytic activity/Vol] 20 U/L Normal 14-40 [facility] Comment on above: Order Comment: Speci men Type: BLOOD SPECIMENOrdering Facility: [facility] Address: [address] [place] [address] Performed By: #### 2 4323-8 ####[facility] EMERGENCYNCLIA [id number] [place] [address] [place] Bilirubin [Mass/Vol] 0.8 mg/dL Normal 0.2-1.3 [facility] Comment on above: Order Comment: Speci men Type: BLOOD SPECIMENOrdering Facility: [facility] Address: [address] [place] [address] Performed By: #### 2 4323-8 ####[facility] RADHA MILLTOWNCLIA [id number] [place] [address] [place] Calcium [Mass/Vol] 9.3 mg/dL Normal 8.5-10.2 [facility] Comment on above: Order Comment: Speci men Type: BLOOD SPECIMENOrdering Facility: [facility] Address: [address] [place] [address] Performed By: #### 2 4323-8 ####[facility] MILLTOWNCLIA [id number] [place] [address] [place] Chloride [Moles/Vol] 105 mmol/L Normal 98-107 [facility] Comment on above: Order Comment: Speci men Type: BLOOD SPECIMENOrdering Facility: [facility] Address: [address] [place] [address] Performed By: #### 2 4323-8 ####[facility]ENTERLIA [id number] [place] [address] [place] CO2 [Moles/Vol] 28 mmol/L Normal 22-30 [facility] Comment on above: Order Comment: Speci men Type: BLOOD SPECIMENOrdering Facility: [facility] Address: [address] [place] [address] Performed By: #### 2 4323-8 ####[facility] MILLWNCLIA [id number] [place] [address] [place] Creatinine [Mass/Vol] 1.09 mg/dL Normal 0.73-1.22 [facility] Comment on above: Order Comment: Speci men Type: BLOOD SPECIMENOrdering Facility: [facility] Address: [address] [place] [address] Performed By: #### 2 4323-8 ####[facility] EMERGENCYNCLIA [id number] [place] [address] [place] Creatinine and Glomerular filtration rate.predicted panel (S/P/Bld) 68 mL/min/1.73m??? Normal >=60 [facility] Comment on above: Order Comment: Tiesha maxwell Type: BLOOD SPECIMENOrdering Facility: [facility] Address: [address] [place] [address] Result Comment: Svetlana mated Glomerular Filtration Rate [...] GFR. Performed By: #### 2 4323-8 ####[facility] [id number] [place] [address] [place] Glucose [Mass/Vol] 96 mg/dL Normal 74-99 [facility] Comment on above: Order Comment: Tiesha maxwell Type: BLOOD SPECIMENOrdering Facility: [facility] Address: [address] [place] [address] Result Comment: The [place] Diabetes Association (ADA) provides guidance for cutoff [...] Standards of Medical Care in Diabetes 2016, [place] [employer]. Diabetes Care. 2016.39(Suppl 1). Performed By: #### 2 4323-8 ####[facility]ERGENCYNCSALT [facility] [id number] [place] [address] [place] Potassium [Moles/Vol] 4.3 mmol/L Normal 3.7-5.1 [facility] Comment on above: Order Comment: Speci men Type: BLOOD SPECIMENOrdering Facility: [facility] Address: [address] [place] [address] Performed By: #### 2 4323-8 ####[facility] ROBINSONWNCLIA [id number] [place] [address] [place] Protein [Mass/Vol] 6.8 g/dL Normal 6.3-8.0 [facility] Comment on above: Order Comment: Speci men Type: BLOOD SPECIMENOrdering Facility: [facility] Address: [address] [place] [address] Performed By: #### 2 4323-8 ####[facility] EMERGENCYNCLIA [id number] [place] [address] [place] Sodium [Moles/Vol] 139 mmol/L Normal 136-144 [facility] Comment on above: Order Comment: Speci men Type: BLOOD SPECIMENOrdering Facility: [facility] Address: [address] [place] [address] Performed By: #### 2 4323-8 ####[facility] EMERGENCYNCLIA [id number] [place] [address] [place] Urea nitrogen [Mass/Vol] 17 mg/dL Normal 9-24 [facility] Comment on above: Order Comment: Speci men Type: BLOOD SPECIMENOrdering Facility: [facility] Address: [address] [place] [address] Performed By: #### 2 4323-8 ####[facility] EMERGENCYNCLIA [id number] [place] [address] [place] Lipid 1996 panelon 5 Cholesterol [Mass/Vol] 107 mg/dL Normal <200 [facility] Comment on above: Order Comment: Speci men Type: BLOOD SPECIMENOrdering Facility: [facility] Address: [address] [place] [address] Result Comment: <200 mg/dL, Desirable 200-239 mg/dL, Borderline high >239 mg/dL, High Performed By: #### 2 4331-1 ####[facility] LABCLIA [id number] [address] [address] [facility] [id number] [place] [address] [place] Cholesterol in HDL [Mass/Vol] 56 mg/dL Normal >39 [facility] Comment on above: Order Comment: Speci men Type: BLOOD SPECIMENOrdering Facility: [facility] Address: [address] [place] [address] Result Comment: 40-5 9 mg/dL, Acceptable >59 mg/dL, High: Negative risk factor for coronary heart disease <40 mg/dL, Low: Positive risk factor for coronary heart disease Performed By: #### 2 4331-1 ####[facility] LABCLIA [id number] [address] [id number] [place] [address] [place] Cholesterol in LDL [Mass/Vol] 41 mg/dL Normal <100 [facility] Comment on above: Order Comment: Speci men Type: BLOOD SPECIMENOrdering Facility: [facility] Address: [address] [place] [address] Result Comment: <100 mg/dL, Optimal 100-129 mg/dL, Near optimal/above optimal 130-159 mg/dL, Borderline high 160-189 mg/dL, High >189 mg/dL, Very high Secondary prevention optimal LDL Cholesterol levels are recommended to be < 70 mg/dL Performed By: #### 2 4331-1 ####[facility] LABIA [id number] [address] [address] [facility] [id number] [place] [address] [place] Cholesterol in LDL/Cholesterol in HDL [Mass ratio] 0.73 {ratio} Normal <2.54 [facility] Comment on above: Order Comment: Speci men Type: BLOOD SPECIMENOrdering Facility: [facility] Address: [address] [place] [address] Result Comment: Aleisha martinez: 1. National Cholesterol Education Program ATP III Guideline At-A-Glance Quick Desk Reference: National Heart, Lung, and Blood [place]. National Institutes of Health. 2001: NIH Publication No. 01-3305. 2. An International Atherosclerosis Society position paper: global recommendations for the management of dyslipidemia: executive summary, Atherosclerosis. 2014: 232(2):410-413. Performed By: #### 2 4331-1 ####[facility] LABCLIA [id number] [id number] [place] [address] OF [facility] Cholesterol in VLDL [Mass/Vol] 10 mg/dL Normal <30 [facility] Comment on above: Order Comment: Speci men Type: BLOOD SPECIMENOrdering Facility: [facility] Address: [address] [place] [address] Performed By: #### 2 4331-1 ####[facility] LABCLIA [id number] [address] [id number] [place] [address] STATES OF [facility] Cholesterol non HDL [Mass/Vol] 51 mg/dL Normal <130 [facility] Comment on above: Order Comment: Speci men Type: BLOOD SPECIMENOrdering Facility: [facility] Address: [address] [place] [address] Result Comment: <130 mg/dL, Optimal 130-159 mg/dL, Near optimal/above optimal 160-189 mg/dL, Borderline high 190-219 mg/dL, High >219 mg/dL, Very high Secondary prevention optimal non HDL Cholesterol levels are recommended to be <100 mg/dL Performed By: #### 2 4331-1 ####[facility] LABCLIA [id number] [address] [place] [address] [place] [id number] [place] [address] [place] Cholesterol.total/Ch olesterol in HDL [Mass ratio] 1.91 {ratio} Normal <5.10 [facility] Comment on above: Order Comment: Speci men Type: BLOOD SPECIMENOrdering Facility: [facility] Address: [address] [place], [place] [address] Performed By: #### 2 4331-1 ####[facility] LABCLIA [id number] [address], [facility] [place] [id number] [place] [address] FASTING TIME 12 hrs Normal [facility] Comment on above: Order Comment: Speci men Type: BLOOD SPECIMENOrdering Facility: [facility] Address: [address] [place], [place] [address] Performed By: #### 2 4331-1 ####[facility] LABCLIA [id number] [address] [place] [address] [facility] [id number] [place] [address] [place] Triglyceride [Mass/Vol] 50 mg/dL Normal <150 [facility] Comment on above: Order Comment: Speci men Type: BLOOD SPECIMENOrdering Facility: [facility] Address: [address] [place] [address] Result Comment: <150 mg/dL, Normal 150-199 mg/dL, Borderline high 200-499 mg/dL, High >499 mg/dL, Very high Performed By: #### 2 4331-1 ####[facility] LABCLIA [id number] [address] [place] [address] [facility] RAD[facility] CENTERNCLI [id number] [place] [address] [facility] CNOVon 02-18-2025 CNOV Office Visit (UROLWS ) MAXIMO NIXON ([id number]) 1940 M Date Time Provider Department 02/18/25 [...] Dasilva APRN.KIANA MANUEL 02/18/2025 9:31 AM Signed [facility] MALE PATIENT - [...] Take 2 (more content not included)... Normal [facility] UA DIP, URINE (POC)on 2024 BILIRUBIN UA (POCT) Negative Negative [facility] CLARITY UA (POCT) Clear [facility] COLOR UA (POCT) Dark yellow [facility] GLUCOSE UA (POCT) Negative Negative mg/dL [facility] Hemoglobin Ql (U) Negative Negative [facility] KETONE UA (POCT) Negative Negative mg/dL [facility] LEUKOCYTES UA (POCT) Negative Negative [facility] NITRITE UA (POCT) Negative Negative [facility] PH UA (POCT) 6 4.5 - 8.0 [facility] Protein Ql (U) Negative Negative mg/dL [facility] SPECIFIC GRAVITY UA (POCT) 1.025 1.005 - 1.030 [facility] UROBILINOGEN UA (POCT) 1 Normal E.U./dL [facility] Location:[facility], [address] [facility], [place], [place], [address] [place] [address] POINT OF CARE [facility] ECHOon 01-25-2025 Echocardiography Echocardiography Rep ort: Transthoracic Echo [facility] Office Date of service: 01/25/2025 1:58:36 PM [facility] [employer] Ordering physician: LYNETTE PATEL Indication: Mitral Valve [...] * * * Final * * * [facility] : [id number] Normal [facility] CNOVon 01-22-2025 CNOV Office Visit (UCWSTR ) MAXIMO NIXON ([id number]) 1940 M Date Time Provider Department 01/22/25 10:30 AM SEBASTIAN HERNANDEZ [facility] During your visit today, we recorded the following information about you: Temperature Pulse Respiration Blood pressure 99.1 degrees 80/minute 16/minute 122/66 Weight 93.1 kg Sebastian Hernandez PA-C 01/22/2025 11:35 AM Signed This note was created using KIHEITAI. Subjective Maximo Nixon is a 84 year [...] Diagnosis:Influenza A [J10.1] Order(s):XR CHEST 2V FRONTAL/LAT [[id number]] Order #: [id number]. #:[id number] INFLUENZA AANDB MOLECULAR (POC) [[id number]] Order #: [id number]. #:[id number] oseltamivir (TAMIFLU) 75 mg capsuleTake 1 [...] malignant filomena (more content not included)... Normal [facility] INFLUENZA A&B MOLECULAR (POC )on 01-22-2025 Flu A (POCT) Positive Abnormal Negative [facility] Comment on above: Location:[address], [place], [address] Interpretation and review of laboratory results Abnormal [facility] Procedural Control Valid [facility] Location:[address], [place], [address] [facility] POINT OF CARE [facility] XR CHEST 2V FRONTAL/LATon XR CHEST [...] fracture deformities. IMPRESSION: No acute radiographic abnormality. Acid Extractor: [facility] Transcribe Date/Time: Jan 22 2025 11:20A Dictated by : OMAR MAGANA MD This examination was interpreted and the report reviewed and electronically signed by: OMAR MAGANA MD on Jan 22 2025 11:21AM EST [id number] Normal [facility] XR Chest PA and Lateralon IMPRESSION: No acute radiographic abnormality. Acid Extractor: [facility] Transcribe Date/Time: Jan 22 2025 11:20A Dictated [...] deformities. DIVISION OF RADIOLOGY Provider, [facility] - 01/22/2025 * * *Final Report* [...] deformities. IMPRESSION IMPRESSION: No acute radiographic abnormality. [facility] Transcribe Date/Time: Jan 22 2025 11:20A Dictated by : OMAR MAGANA MD This examination was interpreted and the report reviewed and electronically signed by: OMAR MAGANA MD on Jan 22 2025 11:21AM EST [facility] Radiology Study observation (narrative) [facility] XR Chest PA and LateralOrder ed By: Cc Provider on 01-22-2025 [facility] CNOVon 01-07-2025 CNOV Office Visit (UROLWS ) MAXIMO NIXON ([id number]) 1940 M Date Time Provider Department 01/07/25 1:30 PM CORNELIUS DASILVA During your visit today, we recorded the following information about you: Pulse Blood pressure Weight Height 62/minute 132/79 93.4 kg 1.88 m Cornelius Dasilva APRN.ASSESSMENT MANAGER, DNP 01/07/2025 2:02 PM Signed [facility] MALE PATIENT - [...] (POCT) Neg (more content not included)... Normal [facility] CNOVon 12-27-2024 CNOV Office Visit (CARDMM ) MAXIMO NIXON ([id number]) 1940 M Date Time Provider Department 12/27/24 2:20 PM LYNETTE PATEL During your visit today, we recorded the following information about you: Pulse Blood pressure Weight Height 62/minute 142/74 92.3 kg 1.88 m Lynette Patel MD 12/27/2024 3:02 PM Signed [facility] [place] SECTION OF REGIONAL CARDIOLOGY OUTPATIENT VISIT DATE 12/27/2024 OUTPATIENT VISIT TYPE NEW PRIMARY CARE PHYSICIAN: Diego Huffman [address] [place] [address] Patient is being seen at the request [...] mmHg. PHT 119, trace TR, 1-2+AR, 1+ CT, asc Ao 3.6 PAST MEDICAL HISTORY Diagnosis [...] air cells, likely inflammatory. Lynette Patel MD, [facility] Allergies As of Date: 12/27/2024 Noted Allergy Reaction LISINOPRIL 04/09/2013 3 - Coug (more content not included)... 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 Chronic changes as described. Normal appearance of the bilateral seventh/8th nerve complexes and inner ear complexes, without abnormal enhancement. Acid Extractor: [facility] Transcribe Date/Time: Dec 19 2024 3:21P Dictated by : TIMMY SRINIVASAN MD This examination was interpreted and the report reviewed and electronically signed by: TIMMY SRINIVASAN MD on Dec 19 2024 3:27PM [facility] DIVISION OF RADIOLOGY * * *Final Report* [...] tissues are unremarkable. DIVISION OF RADIOLOGY Provider, [facility] - 12/19/2024 * * *Final Report* [...] and inner ear complexes, without abnormal enhancement. Acid Extractor: MALLY Transcribe Date/Time: Dec 19 2024 3:21P Dictated by : TIMMY SRINIVASAN MD This examination was interpreted and the report reviewed and electronically signed by: TIMMY SRINIVASAN MD on Dec 19 2024 3:27PM EST [facility] Radiology Study observation (narrative) [facility] MR Brain WO and W contrast I VOrdered By: [facility] Provider on 12-19-2024 [facility] MRI BRAIN WO/W IVCONon 12-19 MRI BRAIN WO/W IVCON * * *Final Report* * * DATE OF EXAM: Dec 19 2024 2:05PM [facility] 0295 - MRI BRAIN WO/W IVCON / [...] and inner ear complexes, without abnormal enhancement. Acid Extractor: [facility] Transcribe Date/Time: Dec 19 2024 3:21P Dictated by : TIMMY SRINIVASAN MD This examination was interpreted and the report reviewed and electronically signed by: TIMMY SRINIVASAN MD on Dec 19 2024 3:27PM EST [id number] Normal [facility] CNOVon 12-10-2024 CNOV Office Visit (OTOLMM ) MAXIMO NIXON ([id number]) 1940 M Date Time Provider Department 12/10/24 [...] electronic medical record. Referring Provider: DIEGO HUFFMAN [[id number]] Allergies As of Date: 12/10/2024 Noted Allergy [...] (post-nasal drip) [R09.82] Order(s):MRI BRAIN WO/W IVCON [[id number]] Order #: [id number] FUTURE iv contrast (will be provided with [...] EachRfl: 0 CREATININE BLD [SQCRET] Order #: [id number] FUTURE Prescriptions as of 12/10/2024 - iv [...] malignant neopl (more content not included)... Normal [facility] CNOV Office Visit (OTAUME ) MAXIMO NIXON ([id number]) 1940 M Date Time Provider Department 12/10/24 2:00 PM ANI LIU During your visit today, we recorded the following information about you: Ani Liu, YUSEF 12/10/2024 5:35 PM Signed [facility] [place] AUDIOLOGIC EVALUATION REPORT Name: Maximo Nixon [facility]#: [id number] Date of Service: 12/10/2024 Date of : [...] week ago. 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 History of chemotherapy [...] evaluation of middle ear function. CPT code: 59273 RIGHT EAR: Normal ME pressure with enhanced TM compliance (mobility). LEFT EAR: Normal ME pressure with enhanced TM compliance (mobility). ACOUSTIC REFLEXES Description of procedure: This test is an objective measure of auditory and facial nerve pathways. CPT code: 70195, 58202 RIGHT EAR PROBE EAR: (ipsi right stimulus [...] bone conduction and speech recognition testing. CPT code:06121 RIGHT EAR: Hearing Sensitivity: WNL sloping to [...] strategies to enhance communication ability. * Call [phone] to schedule an appointment to assess your need for hearing aids. Request a HAE appointment. * Encouraged patient to reach out to insurance provider to determine if they are eligible for a hearing aid benefit. Patient was advised that if they return to [facility], the cost of hearing aids would likely be [id number]. Yusef Marquez, [facility]-A Clinical and Senior Hearing [employer] Employee Benefits Manager copied to: Rosa Elena Ramon MD DUMONT Abbrev- iation Definition Degree of hearing sensitivity dB range WNL within normal limits WNL 0 - 20 SNHL sensorineural hearing loss Mild 20 (more content not included)... Normal [facility] HEARING TEST/AUDIOGRAMon [facility] CNOVon 11-06-2024 CNOV Office Visit (PODIWS ) MAXIMO NIXON ([id number]) 1940 M Date Time Provider Department 11/06/24 [...] Exam: Constituti (more content not included)... Normal [facility] CNOVon 10-08-2024 CNOV Office Visit (UROLWS ) MAXIMO NIXON ([id number]) 1940 M Date Time Provider Department 10/08/24 [...] Dasilva APRN.KIANA MANUEL 10/08/2024 2:10 PM Signed [facility] MALE PATIENT - [...] (POCT) Ne (more content not included)... Normal [facility] UA DIP, URINE (POC)on 2023 BILIRUBIN UA (POCT) Negative Negative [facility] CLARITY UA (POCT) Clear [facility] COLOR UA (POCT) Yellow [facility] GLUCOSE UA (POCT) Negative Negative mg/dL [facility] Hemoglobin Ql (U) Negative Negative [facility] KETONE UA (POCT) Negative Negative mg/dL [facility] LEUKOCYTES UA (POCT) Negative Negative [facility] NITRITE UA (POCT) Negative Negative [facility] PH UA (POCT) 5.5 4.5 - 8.0 [facility] Protein Ql (U) Negative Negative mg/dL [facility] SPECIFIC GRAVITY UA (POCT) >=1.030 1.005 - 1.030 [facility] UROBILINOGEN UA (POCT) 1.0 Normal E.U./dL [facility] Location:[facility], [address], [place], [place], [id number] [place] [address] POINT OF CARE [facility] (EVONNE) MAXIMO NIXON ([id number]) 1940 M Date Time Provider Department 10/03/24 [facility] During your visit today, we recorded [...] Encounter Status:Closed by ROSARIO HAUSER on 10/03/24 [facility] CNOVdeacon 09-26-2024 CNOV Office Visit (FAMPWS ) MAXIMO NIXON ([id number]) 1940 M Date Time Provider Department 09/26/24 [...] Normal pal (more content not included)... Normal [facility] XR FOOT 3V AP/LAT/OBL RTon 1 XR [...] calcaneal enthesophyte. IMPRESSION: No acute bony abnormality. Acid Extractor: MALLY Transcribe Date/Time: Oct 02 2024 2:35P Dictated by : TIMMY QUINN MD This examination was interpreted and the report reviewed and electronically signed by: TIMMY QUINN MD on Oct 02 2024 2:36PM EST [id number] Normal [facility] CNOVon 09-14-2024 CNOV Office Visit (FAMPWS ) MAXIMO NIXON ([id number]) 1940 M Date Time Provider Department 09/14/24 [...] ICD10: H93.19 (more content not included)... Normal [facility] CNOVon 08-29-2024 CNOV Office Visit (FAMPWS ) MAXIMO NIXON ([id number]) 1940 M Date Time Provider Department 08/29/24 [...] to the emergency room. He presented to [facility] on 08/27/2024 with complaints of lightheadedness [...] (Patient not taking: Reported on 04/02/2024) Ipratropium [place] (ATROVENT) 21 mcg (0.03 %) nasal spray [...] lesions, tenderne (more content not included)... Normal [facility] 12 Lead EKGon 08-27-2024 12 Lead EKG [facility] [address] [place] [address] 12 Lead EKG 08/27/24 1838 MR#: [id number] Acct: [id number] Name: MAXIMO NIXON Rep #: [id number] : 1940 84 From: Guillermo Trivedi MD [...] 424 ms Unusual P axis and short CT, probable junctional rhythm Left axis deviation Minimal voltage criteria for LVH, may be normal variant ( R in aVL ) Abnormal ECG Confirmed by GUILLERMO TRIVEDI MD ([id number]), primer expeditor and drier JIMENA RUSSELL ([id number]) on 08/28/2024 8:50:52 AM Referred By: Confirmed By:GUILLERMO TRIVEDI MD 08/28/24 0850 Date Guillermo Trivedi MD CC: Dr. Juan Luis Hughes, ; Dr. Diego Huffman MD Signed Normal [facility] Basic Metabolic Profile (BMP )on 08-27-2024 BUN/CRE 17.5 RATIO Normal 10-20 [facility] Comment on above: Order Comment: 'TROP ' Serial specimen #1, #2 or #3: 1 Performed By: #### L 500.2500, L100.0100, L501.4020 #### [facility] [address] [place], [address] CA,Total 8.7 mg/dL Normal 8.5-10.1 [facility] Comment on above: Order Comment: 'TROP ' Serial specimen #1, #2 or #3: 1 Performed By: #### L 500.2500, L100.0100, L501.4020 #### [facility] [address] [place], [address] Chloride [Moles/Vol] 109 mmol/L High 98-107 [facility] Comment on above: Order Comment: 'TROP ' Serial specimen #1, #2 or #3: 1 Performed By: #### L 500.2500, L100.0100, L501.4020 #### [facility] [address] [place], [address] CO2 [Moles/Vol] 29.0 mmol/L Normal 21.0-32.0 [facility] Comment on above: Order Comment: 'TROP ' Serial specimen #1, #2 or #3: 1 Performed By: #### L 500.2500, L100.0100, L501.4020 #### [facility] [address] [place], [address] Creatinine [Mass/Vol] 1.20 mg/dL Normal 0.70-1.30 [facility] Comment on above: Order Comment: 'TROP ' Serial specimen #1, #2 or #3: 1 Result Comment: The validity of the calculated GFR GFRAA in patients over 70 years has not been determined. Clinical correlation is essential. Performed By: #### L 500.2500, L100.0100, L501.4020 #### [facility] [address] [place], [address] ECRCL 52.09 ml/min Normal [facility] Comment on above: Order Comment: 'TROP ' Serial specimen #1, #2 or #3: 1 Performed By: #### L 500.2500, L100.0100, L501.4020 #### [facility] [address] [place], [address] EST GFR - AA 75 mL/min Normal >60 [facility] Comment on above: Order Comment: 'TROP ' Serial specimen #1, #2 or #3: 1 Result Comment: Afri can Somali GFR Calc Performed By: #### L 500.2500, L100.0100, L501.4020 #### [facility] [address] [place], [address] GAP 6 Normal 5-15 [facility] Comment on above: Order Comment: 'TROP ' Serial specimen #1, #2 or #3: 1 Performed By: #### L 500.2500, L100.0100, L501.4020 #### [facility] [address] [place], [address] GFR/1.73 sq M.predicted among non-blacks MDRD (S/P/Bld) [Vol rate/Area] 62 mL/min/{1.73_m2} Normal >60 [facility] Comment on above: Order Comment: 'TROP ' Serial specimen #1, #2 or #3: 1 Result Comment: Non- GFR Calc Performed By: #### L 500.2500, L100.0100, L501.4020 #### [facility] [address] [place], [address] Glucose [Mass/Vol] 109 mg/dL High 74-106 [facility] Comment on above: Order Comment: 'TROP ' Serial specimen #1, #2 or #3: 1 Result Comment: Fast ing Glucose result from 100 to 125 mg/dL suggests IMPAIRED HOMEOSTASIS per A.D.A. criteria. Performed By: #### L 500.2500, L100.0100, L501.4020 #### [facility] [address] [place], [address] Potassium [Moles/Vol] 3.9 mmol/L Normal 3.5-5.1 [facility] Comment on above: Order Comment: 'TROP ' Serial specimen #1, #2 or #3: 1 Performed By: #### L 500.2500, L100.0100, L501.4020 #### [facility] [address] [place], [address] Sodium [Moles/Vol] 144 mmol/L Normal 136-145 [facility] Comment on above: Order Comment: 'TROP ' Serial specimen #1, #2 or #3: 1 Performed By: #### L 500.2500, L100.0100, L501.4020 #### [facility] [address] [place], [address] Urea nitrogen [Mass/Vol] 21 mg/dL High 7-18 [facility] Comment on above: Order Comment: 'TROP ' Serial specimen #1, #2 or #3: 1 Performed By: #### L 500.2500, L100.0100, L501.4020 #### [facility] [address] [place], [address] CBC W/Diff, Automatedon 09-3 0-2023 Absolute Lymph 1.45 X10 3/uL Normal 0.83-4.51 [facility] Comment on above: Performed By: #### L 500.2500, L100.0100, L501.4020 #### [facility] [address] [place], [address] Absolute Neut 3.0 X10 3/uL Normal 2.0-7.7 [facility] Comment on above: Performed By: #### L 500.2500, L100.0100, L501.4020 #### [facility] [address] [place], [address] Basophils/100 WBC (Bld) 0.9 % Normal 0-1 [facility] Comment on above: Performed By: #### L 500.2500, L100.0100, L501.4020 #### [facility] [address] [place], [address] Eosinophils/100 WBC (Bld) 3.0 % Normal 0-5 [facility] Comment on above: Performed By: #### L 500.2500, L100.0100, L501.4020 #### [facility] [address] [place], [address] Erythrocyte distribution width (RBC) [Ratio] 13.2 % Normal 11.6-14.6 [facility] Comment on above: Performed By: #### L 500.2500, L100.0100, L501.4020 #### [facility] [address] [place], [address] Hematocrit (Bld) [Volume fraction] 46.1 % Normal 40-54 [facility] Comment on above: Performed By: #### L 500.2500, L100.0100, L501.4020 #### [facility] [address] [place], [address] Hemoglobin (Bld) [Mass/Vol] 15.6 g/dL Normal 13.0-16.5 [facility] Comment on above: Performed By: #### L 500.2500, L100.0100, L501.4020 #### [facility] [address] [place], [address] IG% 0.600 Normal 0.0-0.9 [facility] Comment on above: Result Comment: IG% - Immature Granulocytes (promyelocytes, myelocytes and metamyelocytes) > 1% indicates that a LEFT SHIFT is Present. Performed By: #### L 500.2500, L100.0100, L501.4020 #### [facility] [address] [place], [address] Lymphocytes/100 WBC (Bld) 26.8 % Normal 19-41 [facility] Comment on above: Performed By: #### L 500.2500, L100.0100, L501.4020 #### [facility] [address] [place], [address] MCH (RBC) [Entitic mass] 31.9 pg Normal 27.0-32.0 [facility] Comment on above: Performed By: #### L 500.2500, L100.0100, L501.4020 #### [facility] [address] [place], [address] MCHC (RBC) [Mass/Vol] 33.8 g/dL Normal 32-36 [facility] Comment on above: Performed By: #### L 500.2500, L100.0100, L501.4020 #### [facility] [address] [place], [address] MCV (RBC) [Entitic vol] 94.3 fL High 80-94 [facility] Comment on above: Performed By: #### L 500.2500, L100.0100, L501.4020 #### [facility] [address] [place], [address] Monocytes/100 WBC (Bld) 12.8 % High 0-10 [facility] Comment on above: Performed By: #### L 500.2500, L100.0100, L501.4020 #### [facility] [address] [place], [address] Neutrophils/100 WBC (Bld) 55.9 % Normal 47-70 [facility] Comment on above: Performed By: #### L 500.2500, L100.0100, L501.4020 #### [facility] [address] [place], [address] Nucleated RBC (Bld) [#/Vol] 0 10*3/uL Normal 0-5 [facility] Comment on above: Performed By: #### L 500.2500, L100.0100, L501.4020 #### [facility] [address] [place], [address] Platelet mean volume (Bld) [Entitic vol] 9.6 fL Normal 6.2-12.0 [facility] Comment on above: Performed By: #### L 500.2500, L100.0100, L501.4020 #### [facility] [address] [place], [address] Platelets (Bld) [#/Vol] 186 10*3/uL Normal 150-450 [facility] Comment on above: Performed By: #### L 500.2500, L100.0100, L501.4020 #### [facility] [address] [place], [address] RBC (Bld) [#/Vol] 4.89 10*6/uL Normal 4.6-6.2 [facility] Comment on above: Performed By: #### L 500.2500, L100.0100, L501.4020 #### [facility] [address] [place], [address] RDW SD 45.9 fl High 35.1-43.9 [facility] Comment on above: Performed By: #### L 500.2500, L100.0100, L501.4020 #### [facility] [address] [place], [address] WBC (Bld) [#/Vol] 5.4 10*3/uL Normal 4.4-11.0 [facility] Comment on above: Performed By: #### L 500.2500, L100.0100, L501.4020 #### [facility] [address] [place], [address] CNOVon 08-27-2024 CNOV Office Visit (UCWSTR ) MAXIMO NIXON ([id number]) 1940 M Date Time Provider Department 08/27/24 4:45 PM [facility] During your visit today, we recorded the [...] FIBRE ORAL) Take by mouth. - Ipratropium [place] (ATROVENT) 21 mcg (0.03 %) nasal spray [...] Status:Closed by LEONARDA DUTTA on 08/27/24 Normal [facility] Emergency Department Summary on 08-27-2024 Emergency Department Summary [facility] Medical Records Department [address] [place] [address] Emergency Department Summary 08/27/24 MR#: [id number] Acct: [id number] Name: MAXIMO NIXON Rep #: [id number] : 1940 84 From: Juan Luis Hughes [...] Patient denies any changes in his hearing. [facility] Medical History (Updated 08/27/24 @ 22:10 [...] CBC will (more content not included)... Normal [facility] L501.4020on 08-27-2024 TROPONIN-I HS 11 pg/mL Normal 3.0-78.0 [facility] Comment on above: Order Comment: 'TROP ' Serial specimen #1, #2 or #3: 1 Result Comment: Roly parsons Note: New Test Units and Gender Specific Reference Ranges. For more information see Policy Stat Procedure Milner High Sensitivity Troponin (TNIH) and attachments. Performed By: #### L 500.2500, L100.0100, L501.4020 #### [facility] [address] [place], [address] Urinalysis, Completeon 08-27 BACTERIA 1+ /hpf Normal None Seen [facility] Comment on above: Order Comment: CLEAN CATCH Performed By: #### L 400.0001 #### [facility] [address] [place], [address] WBC 5-10 SEEN Normal 0-5 [facility] Comment on above: Order Comment: CLEAN CATCH Performed By: #### L 400.0001 #### [facility] [address] [place], [address] EPI,SQUAMOUS 0 SEEN Normal [address] [place] [address] Comment on above: Order Comment: CLEAN CATCH Performed By: #### L 400.0001 #### [facility] [address] [place], [address] Mucus Ql (Urine sed) 0 SEEN Normal [facility] Comment on above: Order Comment: CLEAN CATCH Performed By: #### L 400.0001 #### [facility] [address] [place], [address] RBC 0 SEEN Normal 0-5 [facility] Comment on above: Order Comment: CLEAN CATCH Performed By: #### L 400.0001 #### [facility] [place], [address] CNOVon 07-31-2024 CNOV Office Visit (FAMPWS ) MAXIMO NIXON ([id number]) 1940 M Date Time Provider Department 07/31/24 2:20 PM [facility] During your visit today, we recorded [...] 65+ YR, HIGH DOSE, TRIVALENT (FLUZONE HIGH-DOSE) [[id number]] Order #: [id number] Prescriptions as of 07/31/2024 - amLODIPine (NORVASC) 2.5 mg tablet Take 1 tablet by mouth once daily. - nystatin (MYCOSTATIN) cream Apply 1 application to affected area two times a day. - nutritional supplement/fiber (JUICE PLUS FIBRE ORAL) Take by mouth. - Ipratropium [place] (ATROVENT) 21 mcg (0.03 %) nasal spray [...] Status:Closed by KATTY HINES on 07/31/24 Normal [facility] UA DIP, URINE (POC)on 2022 BILIRUBIN UA (POCT) Negative Negative [facility] CLARITY UA (POCT) Clear [facility] COLOR UA (POCT) Dark yellow [facility] GLUCOSE UA (POCT) Negative Negative mg/dL [facility] Hemoglobin Ql (U) Negative Negative [facility] KETONE UA (POCT) Negative Negative mg/dL [facility] LEUKOCYTES UA (POCT) Negative Negative [facility] NITRITE UA (POCT) Negative Negative [facility] PH UA (POCT) 5.5 4.5 - 8.0 [facility] Protein Ql (U) Negative Negative mg/dL [facility] SPECIFIC GRAVITY UA (POCT) 1.025 1.005 - 1.030 [facility] UROBILINOGEN UA (POCT) 1.0 E.U./dL Normal E.U./dL [facility] UA DIP, URINE (POC)on 2022 BILIRUBIN UA (POCT) Negative Negative [facility] CLARITY UA (POCT) Clear [facility] COLOR UA (POCT) Dark yellow [facility] GLUCOSE UA (POCT) Negative Negative mg/dL [facility] HEMOGLOBIN/BLOOD UA (POCT) Negative Negative [facility] KETONE UA (POCT) Negative Negative mg/dL [facility] LEUKOCYTES UA (POCT) Negative Negative [facility] NITRITE UA (POCT) Negative Negative [facility] PH UA (POCT) 5.5 4.5 - 8.0 [facility] Protein Ql (U) Negative Negative mg/dL [facility] SPECIFIC GRAVITY UA (POCT) >=1.030 1.005 - 1.030 [facility] UROBILINOGEN UA (POCT) 0.2 E.U./dL Normal E.U./dL [facility] XR Knee - right 4 Viewson IMPRESSION: No acute osseous abnormality Acid Extractor: MLALY Transcribe Date/Time: Mar 03 2023 1:03P Dictated by : YOGESH ALBRIGHT MD This examination was interpreted and the report reviewed and electronically signed by: YOGESH ALBRIGHT MD on Mar 03 2023 1:08PM [facility] DIVISION OF RADIOLOGY * * *Final Report* [...] left knee prosthesis. DIVISION OF RADIOLOGY Provider, [facility] Addison Petty - 03/03/2023 * * *Final [...] prosthesis. IMPRESSION IMPRESSION: No acute osseous abnormality Acid Extractor: [facility] Transcribe Date/Time: Mar 03 2023 1:03P Dictated by : YOGESH ALBRIGHT MD This examination was interpreted and the report reviewed and electronically signed by: YOGESH ALBRIGHT MD on Mar 03 2023 1:08PM EST [facility] XR Knee - right 4 ViewsOrder ed By: [facility] Provider on 03-03-2023 [facility] XR Knee - right 4 [facility]son Radiology Study observation (narrative) [facility] No Panel InformationOrdered By: [facility] Provider on 07-07-2022 [facility] No Panel Informationon 07-07 Radiology Study observation (narrative) [facility] XR Knee - right 4 Viewson IMPRESSION: Stable bilateral total knee arthroplasties Acid Extractor: PSCB Transcribe Date/Time: Jul 07 2022 10:17A [...] seen. ZZZ_DO_NOT_ USE_DIVISIO N OF RADIOLOGY Provider, [facility] - 07/07/2022 * * *Final Report* * [...] IMPRESSION IMPRESSION: Stable bilateral total knee arthroplasties Acid Extractor: MALLY Transcribe Date/Time: Jul 07 2022 10:17A Dictated by : PRAKASH MAN DO This examination was interpreted and the report reviewed and electronically signed by: PRAKASH MAN DO on Jul 07 2022 10:17AM EST [facility] XR Shoulder - left 3 Viewson 07-07-2022 IMPRESSION: Degenerative changes in the cervical spine and LEFT shoulder as discussed Acid Extractor: MALLY Transcribe Date/Time: Jul 07 2022 10:18A [...] seen. ZZZ_DO_NOT_ USE_DIVISIO N OF RADIOLOGY Provider, [facility] - 07/07/2022 * * *Final Report* * [...] cervical spine and LEFT shoulder as discussed Acid Extractor: MALLY Transcribe Date/Time: Jul 07 2022 10:18A Dictated by : PRAKASH MAN DO This examination was interpreted and the report reviewed and electronically signed by: PRAKASH MAN DO on Jul 07 2022 10:18AM EST [facility] US THYROID/PARATHYROIDon [facility] No Panel InformationOrdered By: [facility] Provider on 04-16-2022 [facility] No Panel Informationon 04-16 Radiology Study observation (narrative) [facility] XR Chest PA and Lateralon IMPRESSION: Stable exam without acute findings. Acid Extractor: MALLY Transcribe Date/Time: Apr 16 2022 3:37P [...] IMPRESSION IMPRESSION: Stable exam without acute findings. [facility] Transcribe Date/Time: Apr 16 2022 3:37P Dictated by : GILBERTO WIN MD This examination was interpreted and the report reviewed and electronically signed by: GILBERTO WIN MD on Apr 16 2022 3:39PM EST [facility] XR Neck AP and Lateralon IMPRESSION: No soft tissue abnormality identified. Acid Extractor: [facility] Transcribe Date/Time: Apr 16 2022 3:38P [...] fracture. ZZZ_DO_NOT_ USE_DIVISIO N OF RADIOLOGY Provider, [facility] - 04/16/2022 * * *Final Report* * [...] IMPRESSION IMPRESSION: No soft tissue abnormality identified. Acid Extractor: [facility] Transcribe Date/Time: Apr 16 2022 3:38P Dictated by : STANLEY CURRY MD This examination was interpreted and the report reviewed and electronically signed by: STANLEY CURRY MD on Apr 16 2022 3:39PM EST [facility] CBC W Auto Differential pane l (Bld)on 03-02-2022 Basophils (Bld) [#/Vol] 0.04 10*3/uL Normal <0.11 [facility] Comment on above: Order Comment: Speci men Type: BLOOD SPECIMEN Ordering Facility: [facility] Address: [address] [place] [phone] Performed By: #### 5 7021-8 #### [facility] CLIA [id number] [address] [place] Basophils/100 WBC (Bld) 0.9 % Normal [facility] Comment on above: Order Comment: Speci men Type: BLOOD SPECIMEN Ordering Facility: [facility] Address: [address] [place] [address] Performed By: #### 5 7021-8 #### [facility] CLIA [id number] [address] [place] Differential cell count method Nom (Bld) Auto Normal [facility] Comment on above: Order Comment: Speci men Type: BLOOD SPECIMEN Ordering Facility: [facility] Address: [address] [place] [address] Performed By: #### 5 7021-8 #### [facility] CLIA [id number] [address] [place] Eosinophils (Bld) [#/Vol] 0.10 10*3/uL Normal <0.46 [facility] Comment on above: Order Comment: Speci men Type: BLOOD SPECIMEN Ordering Facility: [facility] Address: [address] [place] [address] Performed By: #### 5 7021-8 #### [facility] CLIA [id number] [address] Eosinophils/100 WBC (Bld) 2.3 % Normal [facility] Comment on above: Order Comment: Speci men Type: BLOOD SPECIMEN Ordering Facility: [facility] Address: [address] [place] [address] Performed By: #### 5 7021-8 #### [facility] CLIA [id number] [address] [place] Erythrocyte distribution width (RBC) [Ratio] 13.2 % Normal 11.5-15.0 [facility] Comment on above: Order Comment: Speci men Type: BLOOD SPECIMEN Ordering Facility: [facility] Address: [address] [place] [address] Performed By: #### 5 7021-8 #### [facility] CLIA [id number] [address] [place] Hematocrit (Bld) [Volume fraction] 46.8 % Normal 39.0-51.0 [facility] Comment on above: Order Comment: Speci men Type: BLOOD SPECIMEN Ordering Facility: [facility] Address: [address] [place] [address] Performed By: #### 5 7021-8 #### [facility] CLIA [id number] [address] Hemoglobin (Bld) [Mass/Vol] 16.0 g/dL Normal 13.0-17.0 [facility] Comment on above: Order Comment: Speci men Type: BLOOD SPECIMEN Ordering Facility: [facility] Address: [address] [place] [address] Performed By: #### 5 7021-8 #### [facility] CLIA [id number] [address] IMMATURE GRAN % 0.5 % Normal [facility] Comment on above: Order Comment: Speci men Type: BLOOD SPECIMEN Ordering [facility]: [facility] Address: [address] [place] [address] Performed By: #### 5 7021-8 #### [facility] CLIA [id number] [address] IMMATURE GRAN ABS <0.03 Normal <0.10 [facility] Comment on above: Order Comment: Speci men Type: BLOOD SPECIMEN Ordering Facility: [facility] Address: [address] [place] [address] Performed By: #### 5 7021-8 #### [facility] CLIA [id number] [address] Lymphocytes (Bld) [#/Vol] 1.56 10*3/uL Normal 1.00-4.00 [facility] Comment on above: Order Comment: Speci men Type: BLOOD SPECIMEN Ordering [facility]: [facility] Address: [address] [place] [address] Performed By: #### 5 7021-8 #### [facility] CLIA [id number] [address] Lymphocytes/100 WBC (Bld) 36.3 % Normal [facility] Comment on above: Order Comment: Speci men Type: BLOOD SPECIMEN Ordering Facility: [facility] Address: [address] [place] [address] Performed By: #### 5 7021-8 #### [facility] CLIA [id number] [address] MCH (RBC) [Entitic mass] 31.9 pg Normal 26.0-34.0 [facility] Comment on above: Order Comment: Speci men Type: BLOOD SPECIMEN Ordering [facility]: [facility] Address: [address] [place] [address] Performed By: #### 5 7021-8 #### [facility] CLIA [id number] [address] MCHC (RBC) [Mass/Vol] 34.2 g/dL Normal 30.5-36.0 [facility] Comment on above: Order Comment: Speci men Type: BLOOD SPECIMEN Ordering [facility]: [facility] Address: [address] [place] [address] Performed By: #### 5 7021-8 #### [facility] CLIA [id number] [address] MCV (RBC) [Entitic vol] 93.4 fL Normal 80.0-100.0 [facility] Comment on above: Order Comment: Speci men Type: BLOOD SPECIMEN Ordering Facility: [facility] Address: [address] [place] [address] Performed By: #### 5 7021-8 #### [facility] CLIA [id number] [address] Monocytes (Bld) [#/Vol] 0.39 10*3/uL Normal <0.87 [facility] Comment on above: Order Comment: Speci men Type: BLOOD SPECIMEN Ordering [facility]: [facility] Address: [address] [place] [address] Performed By: #### 5 7021-8 #### [facility] CLIA [id number] [address] [place] [address] [place] Monocytes/100 WBC (Bld) 9.1 % Normal [facility] Comment on above: Order Comment: Speci men Type: BLOOD SPECIMEN Ordering [facility] Address: [address] [place] [address] Performed By: #### 5 7021-8 #### [facility] CLIA [id number] [address] [place] [address] [place] Neutrophils (Bld) [#/Vol] 2.19 10*3/uL Normal 1.45-7.50 [facility] Comment on above: Order Comment: Speci men Type: BLOOD SPECIMEN Ordering [facility] Address: [address] [place] [address] Performed By: #### 5 7021-8 #### [facility] CLIA [id number] [address] [place] Neutrophils/100 WBC (Bld) 50.9 % Normal [facility] Comment on above: Order Comment: Speci men Type: BLOOD SPECIMEN Ordering [facility] Address: [address] [place] [address] Performed By: #### 5 7021-8 #### [facility] CLIA [id number] [address] [place] Nucleated RBC (Bld) [#/Vol] 10*3/uL Normal <0.01 [facility] Comment on above: Order Comment: Speci men Type: BLOOD SPECIMEN Order[facility] Address: [address] [place] [address] Performed By: #### 5 7021-8 #### [facility] CLIA [id number] [address] [place] Nucleated RBC/100 WBC (Bld) [Ratio] 0.0 /100 WBC Normal [facility] Comment on above: Order Comment: Speci men Type: BLOOD SPECIMEN Order[facility] Address: [address] [place] [address] Performed By: #### 5 7021-8 #### [facility] CLIA [id number] [address] Platelet mean volume (Bld) [Entitic vol] 9.2 fL Normal 9.0-12.7 [facility] Comment on above: Order Comment: Speci men Type: BLOOD SPECIMEN Order[facility] Address: [address] [place] [address] Performed By: #### 5 7021-8 #### [facility] CLIA [id number] [address] [place] Platelets (Bld) [#/Vol] 198 10*3/uL Normal 150-400 [facility] Comment on above: Order Comment: Speci men Type: BLOOD SPECIMEN Order[facility] Address: [address] [place] [address] Performed By: #### 5 7021-8 #### [facility] CLIA [id number] [address] RBC (Bld) [#/Vol] 5.01 10*6/uL Normal 4.20-6.00 [facility] Comment on above: Order Comment: Speci men Type: BLOOD SPECIMEN Ordering [facility] Address: [address] [place] [address] Performed By: #### 5 7021-8 #### [facility] CLIA [id number] [address] WBC (Bld) [#/Vol] 4.30 10*3/uL Normal 3.70-11.00 [facility] Comment on above: Order Comment: Speci men Type: BLOOD SPECIMEN Order[facility] Address: [address] [place] [address] Performed By: #### 5 7021-8 #### [facility] CLIA [id number] [address] Comprehensive metabolic 2000 panelon 03-02-2022 Albumin [Mass/Vol] 4.1 g/dL Normal 3.9-4.9 [facility] Comment on above: Order Comment: Speci men Type: BLOOD SPECIMEN Ordering [facility] Address: [address] [address] Performed By: #### [place], [address]-8 #### [facility] CLIA [id number] [address] ALP [Catalytic activity/Vol] 70 U/L Normal 38-113 [facility] Comment on above: Order Comment: Speci men Type: BLOOD SPECIMEN Ordering Facility: [facility] Address: [address] [place] [address] Performed By: #### [place], [address]-1 #### [facility] CLIA [id number] [address] [place] [facility] ALT [Catalytic activity/Vol] 17 U/L Normal 10-54 [facility] Comment on above: Order Comment: Speci men Type: BLOOD SPECIMEN Ordering [facility] Address: [address] [place] [address] Performed By: #### T NT, #### [facility] CLIA [id number] [address] [place] [facility] Anion gap [Moles/Vol] 8 mmol/L Low 9-18 [facility] Comment on above: Order Comment: Speci men Type: BLOOD SPECIMEN Order[facility] Address: [address] [place] [address] Performed By: #### T NT, #### [facility] CLIA [id number] [address] STATES [facility] AST [Catalytic activity/Vol] Normal [facility] Comment on above: Order Comment: Speci men Type: BLOOD SPECIMEN Ordering [facility]: [facility] Address: [address] [place] [address] Result Comment: Unab le to assay due to interference from hemolysis. Suggest reorder as clinically indicated. Performed By: #### [place], [address]-1 #### [facility] CLIA [id number] [address] [place] Bilirubin [Mass/Vol] 0.5 mg/dL Normal 0.2-1.3 [facility] Comment on above: Order Comment: Speci men Type: BLOOD SPECIMEN Order[facility] Address: [address] [place] [address] Performed By: #### T NT, #### [facility] CLIA [id number] [address] [place] Calcium [Mass/Vol] 9.4 mg/dL Normal 8.5-10.2 [facility] Comment on above: Order Comment: Speci men Type: BLOOD SPECIMEN Order[facility] Address: [address] [place] [address] Performed By: #### T NT, #### [facility] CLIA [id number] [address] [place] [address] [place] Chloride [Moles/Vol] 104 mmol/L Normal 97-105 [facility] Comment on above: Order Comment: Speci men Type: BLOOD SPECIMEN Order[facility] Address: [address] [place] [address] Performed By: #### T NT, #### [facility] CLIA [id number] [address] [place] [address] [place] CO2 [Moles/Vol] 30 mmol/L Normal 22-30 [facility] Comment on above: Order Comment: Speci men Type: BLOOD SPECIMEN Order[facility] Address: [address] [place] [address] Performed By: #### T NT, #### [facility] CLIA [id number] [address] [place] [address] [place] Creatinine [Mass/Vol] 1.01 mg/dL Normal 0.73-1.22 [facility] Comment on above: Order Comment: Speci men Type: BLOOD SPECIMEN Order[facility] Address: [address] [place] [address] Performed By: #### T NT, #### [facility] CLIA [id number] [address] [place] ESTIMATED GLOMERULAR FILTRATION RATE 76 mL/min/1.73m??? Normal >=60 [facility] Comment on above: Order Comment: Tiesha maxwell Type: BLOOD SPECIMEN Order[facility] Address: [address] [place], [place] [id number] Result Comment: Svetlana mated Glomerular Filtration Rate [...] actual GFR. Performed By: #### T NT, 98541-8 #### [facility] CLIA [id number] [address] [place] [address] [place] Glucose [Mass/Vol] 124 mg/dL High 74-99 [facility] Comment on above: Order Comment: Tiesha maxwell Type: BLOOD SPECIMEN Order[facility] Address: [address] [place] [address] Result Comment: The [place] [employer] Association (ADA) provides guidance for cutoff [...] Standards of Medical Care in Diabetes 2016, [place] [employer]. Diabetes Care. 2016.39(Suppl 1). Performed By: #### [place], 05755-0 #### [facility] CLIA [id number] [address] [place] [address] [place] Potassium [Moles/Vol] 4.9 mmol/L Normal 3.7-5.1 [facility] Comment on above: Order Comment: Tiesha maxwell Type: BLOOD SPECIMEN Order[facility] Address: [address] [facility] [address] Performed By: #### T NT, [address]72-1 #### [facility] CLIA [id number] [address] STATES [facility] Protein [Mass/Vol] 6.7 g/dL Normal 6.3-8.0 [facility] Comment on above: Order Comment: Speci men Type: BLOOD SPECIMEN Order[facility] Address: [address] [place] [address] Performed By: #### T NT, #### [facility] CLIA [id number] [address] [place] Sodium [Moles/Vol] 142 mmol/L Normal 136-144 [facility] Comment on above: Order Comment: Speci men Type: BLOOD SPECIMEN Order[facility] Address: [address] [place] [address] Performed By: #### T NT, #### [facility] CLIA [id number] [address] Urea nitrogen [Mass/Vol] 18 mg/dL Normal 9-24 [facility] Comment on above: Order Comment: Speci men Type: BLOOD SPECIMEN Order[facility] Address: [address] [place] [address] Performed By: #### T NT, #### [facility] CLIA [id number] [address] D dimer FEU PPP-mCncon 03-02 Fibrin D-dimer FEU (PPP) [Mass/Vol] 240 ng/mL FEU Normal <500 [facility] Comment on above: Order Comment: Speci men Type: BLOOD SPECIMEN [facility] Address: [address] [place] [address] Performed By: #### 4 8065-7 #### [facility] CLIA [id number] [address] [place] ED NOTEon 03-02-2022 ED NOTE HNO ID: [id number] Author: Priscilla Kelly RN Service: Nursing Author [...] all personal belongings exiting the facility. Normal [facility] ED NOTE HNO ID: [id number] Author: Edilma Gagnon RN Service: Nursing Author Type: Registered Nurse Type: ED Notes Filed: 03/02/2022 5:48 PM Note Text: Patient was moving into a new home on Tuesday and had some chest pain. Patient states that it went away and did not return. He saw his PCP and EKG was WNL, however d-dimer was elevated. Placed on con't monitoring. Normal [facility] ED PROV NOTEon 03-02-2022 ED PROV NOTE HNO ID: [id number] Author: Orlando Green PA-C Service: ? Author Type: Physician Glassine Machine Tender Type: ED Provider Notes Filed: 03/02/2022 7:21 PM Note Text: [facility] EMERGENCY DEPARTMENT ENCOUnter Pt Name: [...] dry. N (more content not included)... Normal [facility] Fibrin D-dimer FEU (PPP) [Ma ss/Vol]on 03-02-2022 D DIMER AGE-RELATED CUTOFF 790 ng/mL FEU Normal [facility] Comment on above: Order Comment: Speci men Type: BLOOD SPECIMEN [facility] Address: [address] [place] [phone] Performed By: #### 4 8065-7 #### [facility] CLIA [id number] [address] [place] [address] [place] No Panel Informationon 03-02 D-Dimer Quantitative (PE/DVT) 3.95 FEU/ug/m 0.27-0.49 [facility] Work Phone: Comment on above: D-Dimer ELEVATED (>0 .49): Additional studies and clinicalassessments are indicated to conclude diagnosis of:Deep Vein Thrombosis (DVT) or Pulmonary Embolism (PE)CRITICAL VALUE VERIFIED. CALLED TO CADEN GUZMAN03/02/22 1648 Prakash Zamora.RESULTS READ BACK BY SAME . TROPONIN Ton 03-02-2022 Troponin T.cardiac [Mass/Vol] ug/L Normal 0.000-0.029 [facility] Comment on above: Order Comment: Speci men Type: BLOOD SPECIMEN Order[facility] Address: [address] [place] [phone] Performed By: #### T NT, 61392-3 #### [facility] CLIA [id number] [address] [place] [address] [facility] [place] XR CHEST 2V FRONTAL/LATon [facility] XR Chest PA and Lateralon IMPRESSION: No acute cardiopulmonary disease identified. Acid Extractor: MALLY Transcribe Date/Time: Mar 02 2022 3:54P Dictated by : STANLEY CURRY MD This examination was interpreted and the report reviewed and electronically signed by: STANLEY CURRY MD on Mar 02 2022 3:55PM [facility] DIVISION OF RADIOLOGY * * *Final Report* [...] the thoracic spine. DIVISION OF RADIOLOGY Provider, [facility] Addison [place] - 03/02/2022 * * *Final Report* * [...] IMPRESSION IMPRESSION: No acute cardiopulmonary disease identified. Acid Extractor: MALLY Transcribe Date/Time: Mar 02 2022 3:54P Dictated by : STANLEY CURRY MD This examination was interpreted and the report reviewed and electronically signed by: STANLEY CURRY MD on Mar 02 2022 3:55PM EST [facility] Radiology Study observation (narrative) [facility] XR Chest PA and LateralOrder ed By: [facility] Provider on 03-02-2022 [facility] OCT MACULA CIRRUS OU (BOTH E YES) [facility] Vital Signs Date Time Vital Sign Value Performing Clinician Vijay cabrera 05-01-2025 13:15-0400 Body height 183.9 cm Pulm Wstr Work Phone: [facility] 05-01-2025 13:15-0400 Body mass index (BMI) [Ratio] 27.23 kg/m2 Pulm Wstr Work Phone: [facility] 05-01-2025 13:15-0400 Body weight 92.08 kg Pulm Wstr Work Phone: [facility] 05-01-2025 13:15-0400 Heart rate 66 /min Pulm Wstr Work Phone: [facility] 05-01-2025 13:15-0400 Respiratory rate 14 /min Pulm Wstr Work Phone: [facility] 05-01-2025 13:15-0400 SaO2% (BldA) [Mass fraction] 95 % Pulm Wstr Work Phone: [facility] 04-26-2025 14:52-0400 Body mass index (BMI) [Ratio] 26.78 kg/m2 Diego Huffman MD Work Phone: [facility] 04-26-2025 14:52-0400 Body weight 92.08 kg Diego Huffman MD Work Phone: [facility] 04-26-2025 14:52-0400 Diastolic blood pressure 72 mm[Hg] Diego Huffman MD Work Phone: [facility] 04-26-2025 14:52-0400 Heart rate 92 /min Diego Huffman MD Work Phone: [facility] 04-26-2025 14:52-0400 SaO2% (BldA) [Mass fraction] 95 % Diego Huffman MD Work Phone: [facility] 04-26-2025 14:52-0400 Systolic blood pressure 110 mm[Hg] Diego Huffman MD Work Phone: [facility] 04-23-2025 11:10-0400 Body height 185.4 cm Stacie Coyner FERRYBOAT OPERATOR.CN P Work Phone: [facility] 04-23-2025 11:10-0400 Body mass index (BMI) [Ratio] 26.91 kg/m2 Stacie Coyner FERRYBOAT OPERATOR.ASSESSMENT MANAGER Work Phone: [facility] 04-23-2025 11:10-0400 Body weight 92.53 kg Stacie Coyner FERRYBOAT OPERATOR.CN P Work Phone: [facility] 03-20-2025 09:16-0400 Body height 185.4 cm Narciso Jaquez MD Work Phone: [facility] 03-20-2025 09:16-0400 Body mass index (BMI) [Ratio] 26.91 kg/m2 Narciso Jaquez MD Work Phone: [facility] 03-20-2025 09:16-0400 Body weight 92.53 kg Narciso Jaquez MD Work Phone: [facility] 03-20-2025 09:16-0400 Diastolic blood pressure 84 mm[Hg] Narciso Jaquez MD Work Phone: [facility] 03-20-2025 09:16-0400 Heart rate 61 /min Narciso Jaquez MD Work Phone: [facility] 03-20-2025 09:16-0400 Respiratory rate 16 /min Narciso Jaquez MD Work Phone: [facility] 03-20-2025 09:16-0400 SaO2% (BldA) [Mass fraction] 96 % Narciso Jaquez MD Work Phone: [facility] 03-20-2025 09:16-0400 Systolic blood pressure 170 mm[Hg] Narciso Jaquez MD Work Phone: [facility] 03-15-2025 14:43-0400 Body height 185.4 cm Diego Huffman MD Work Phone: [facility] 03-15-2025 14:43-0400 Body mass index (BMI) [Ratio] 27.18 kg/m2 Diego Huffman MD Work Phone: [facility] 03-15-2025 14:43-0400 Body weight 93.44 kg Diego Huffman MD Work Phone: [facility] 03-15-2025 14:43-0400 Diastolic blood pressure 74 mm[Hg] Diego Huffman MD Work Phone: [facility] 03-15-2025 14:43-0400 Heart rate 67 /min Diego Huffman MD Work Phone: [facility] 03-15-2025 14:43-0400 Systolic blood pressure 131 mm[Hg] Diego Huffman MD Work Phone: [facility] 03-03-2025 14:04-0400 Body mass index (BMI) [Ratio] 27.08 kg/m2 Amanda Zavala APRN.ASSESSMENT MANAGER Work Phone: [facility] 03-03-2025 14:04-0400 Body temperature 97.3 [degF] Amanda Zavala APRN.ASSESSMENT MANAGER Work Phone: [facility] 03-03-2025 14:04-0400 Body weight 93.1 kg Amanda Zavala APRN.ASSESSMENT MANAGER Work Phone: [facility] 03-03-2025 14:04-0400 Diastolic blood pressure 81 mm[Hg] Amanda Zavala APRN.ASSESSMENT MANAGER Work Phone: [facility] 03-03-2025 14:04-0400 Heart rate 68 /min Amanda Zavala APRN.ASSESSMENT MANAGER Work Phone: [facility] 03-03-2025 14:04-0400 Respiratory rate 18 /min Amanda Zavala APRN.ASSESSMENT MANAGER Work Phone: [facility] 03-03-2025 14:04-0400 SaO2% (BldA) [Mass fraction] 96 % Amanda Zavala APRN.ASSESSMENT MANAGER Work Phone: [facility] 03-03-2025 14:04-0400 Systolic blood pressure 131 mm[Hg] Amanda Zavala APRN.ASSESSMENT MANAGER Work Phone: [facility] 02-18-2025 09:00-0400 Body height 185.4 cm Cornelius Dasilva APRN.ASSESSMENT MANAGER , DNP Work Phone: [facility] 02-18-2025 09:00-0400 Body mass index (BMI) [Ratio] 26.91 kg/m2 Cornelius Dasilva APRN.ASSESSMENT MANAGER, DNP Work Phone: [facility] 02-18-2025 09:00-0400 Body temperature 97.39 [degF] Cornelius Dasilva APRN.ASSESSMENT MANAGER , DNP Work Phone: [facility] 02-18-2025 09:00-0400 Body weight 92.53 kg Cornelius Dasilva APRN.ASSESSMENT MANAGER , DNP Work Phone: [facility] 02-18-2025 09:00-0400 Diastolic blood pressure 84 mm[Hg] Cornelius Dasilva APRN.[facility], DNP Work Phone: [facility] Comment on above: Cornelius notified of blood pressure. Alla byrne took medications at 0730. 02-18-2025 09:00-0400 Heart rate 68 /min Cornelius Dasilva APRN.ASSESSMENT MANAGER , DNP Work Phone: [facility] 02-18-2025 09:00-0400 Respiratory rate 14 /min Cornelius Dasilva APRN.[facility] , DNP Work Phone: [facility] 02-18-2025 09:00-0400 SaO2% (BldA) [Mass fraction] 94 % Cornelius Dasilva APRN.ASSESSMENT MANAGER, DNP Work Phone: [facility] 02-18-2025 09:00-0400 Systolic blood pressure 158 mm[Hg] Cornelius Dasilva APRN.[facility] Work Phone: [facility] Comment on above: Cornelius notified of blood pressure. Alla byrne took medications at 0730. 01-22-2025 10:42-0500 Body mass index (BMI) [Ratio] 26.35 kg/m2 Sebastian Clutter PA-C Work Phone: [facility] 01-22-2025 10:42-0500 Body temperature 99.1 [degF] Sebastian Clutter PA-C Work Phone: [facility] 01-22-2025 10:42-0500 Body weight 93.1 kg Sebastian Clutter PA-C Work Phone: [facility] 01-22-2025 10:42-0500 Diastolic blood pressure 66 mm[Hg] Sebastian Clutter PA-C Work Phone: [facility] 01-22-2025 10:42-0500 Heart rate 80 /min Sebastian Clutter PA-C Work Phone: [facility] 01-22-2025 10:42-0500 Respiratory rate 16 /min Sebastian Clutter PA-C Work Phone: [facility] 01-22-2025 10:42-0500 SaO2% (BldA) [Mass fraction] 97 % Sebastian Hernandez PA-C Work Phone: [facility] 01-22-2025 10:42-0500 Systolic blood pressure 122 mm[Hg] Sebastian Hernandez PA-C Work Phone: [facility] 01-07-2025 12:45-0500 Body height 188 cm Cornelius Dasilva APRN.ASSESSMENT MANAGER , DNP Work Phone: [facility] 01-07-2025 12:45-0500 Body mass index (BMI) [Ratio] 26.45 kg/m2 Cornelius Dasilva APRN.ASSESSMENT MANAGER, DNP Work Phone: [facility] 01-07-2025 12:45-0500 Body weight 93.44 kg Cornelius Dasilva APRN.ASSESSMENT MANAGER , DNP Work Phone: [facility] 01-07-2025 12:45-0500 Diastolic blood pressure 79 mm[Hg] Cornelius Dasilva APRN.ASSESSMENT MANAGER, DNP Work Phone: [facility] 01-07-2025 12:45-0500 Heart rate 62 /min Cornelius Dasilva APRN.ASSESSMENT MANAGER , DNP Work Phone: [facility] 01-07-2025 12:45-0500 Systolic blood pressure 132 mm[Hg] Cornelius Dasilva APRN.ASSESSMENT MANAGER, DNP Work Phone: [facility] 12-27-2024 14:21-0500 Body height 188 cm Lynette Patel MD Work Phone: [facility] 12-27-2024 14:21-0500 Body mass index (BMI) [Ratio] 26.13 kg/m2 Lynette Patel MD Work Phone: [facility] 12-27-2024 14:21-0500 Body weight 92.3 kg Lynette Patel MD Work Phone: [facility] 12-27-2024 14:21-0500 Diastolic blood pressure 74 mm[Hg] Lynette Patel MD Work Phone: [facility] 12-27-2024 14:21-0500 Heart rate 62 /min Lynette Patel MD Work Phone: [facility] 12-27-2024 14:21-0500 SaO2% (BldA) [Mass fraction] 96 % Lynette Patel MD Work Phone: [facility] 12-27-2024 14:21-0500 Systolic blood pressure 142 mm[Hg] Lynette Patel MD Work Phone: [facility] 10-08-2024 13:29-0500 Body height 182.9 cm Cornelius Dasilva APRN.KIANA MANUEL Work Phone: [facility] 10-08-2024 13:29-0500 Body mass index (BMI) [Ratio] 27.94 kg/m2 Cornelius Dasilva APRN.CNP, DNP Work Phone: [facility] 10-08-2024 13:29-0500 Body temperature 97.59 [degF] Cornelius Dasilva APRN.CNP, DNP Work Phone: [facility] 10-08-2024 13:29-0500 Body weight 93.44 kg Cornelius Dasilva APRN.CNP, DNP Work Phone: [facility] 10-08-2024 13:29-0500 Diastolic blood pressure 76 mm[Hg] Cornelius Dasilva APRN.CNP, DNP Work Phone: [facility] Comment on above: Cornelius notified of blood pressure- patie nt denies pain anywhere but states he has been more stressed with and her cognitive deficits. 10-08-2024 13:29-0500 Heart rate 66 /min Cornelius Dasilva APRN.CNP, DNP Work Phone: [facility] 10-08-2024 13:29-0500 Respiratory rate 14 /min Cornelius Dasilva APRN.CNP, DNP Work Phone: [facility] 10-08-2024 13:29-0500 SaO2% (BldA) [Mass fraction] 94 % Cornelius Dasilva APRN.ASSESSMENT MANAGER, DNP Work Phone: [facility] 10-08-2024 13:29-0500 Systolic blood pressure 148 mm[Hg] Cornelius Dasilva APRN.ASSESSMENT MANAGER, DNP Work Phone: [facility] Comment on above: Cornelius notified of blood pressure- patiyung nt denies pain anywhere but states he has been more stressed with and her cognitive deficits. 09-26-2024 16:05-0400 Body height 188 cm Diego Huffman MD Work Phone: [facility] 09-26-2024 16:05-0400 Body mass index (BMI) [Ratio] 26.06 kg/m2 Diego Huffman MD Work Phone: [facility] 09-26-2024 16:05-0400 Body weight 92.08 kg Diego Huffman MD Work Phone: [facility] 09-26-2024 16:05-0400 Diastolic blood pressure 70 mm[Hg] Diego Huffman MD Work Phone: [facility] 09-26-2024 16:05-0400 Heart rate 72 /min Diego Huffman MD Work Phone: [facility] 09-26-2024 16:05-0400 SaO2% (BldA) [Mass fraction] 95 % Diego Huffman MD Work Phone: [facility] 09-26-2024 16:05-0400 Systolic blood pressure 126 mm[Hg] Diego Huffman MD Work Phone: [facility] 09-14-2024 10:37-0400 Body height 188 cm Diego Huffman MD Work Phone: [facility] 09-14-2024 10:37-0400 Body mass index (BMI) [Ratio] 25.99 kg/m2 Diego Huffman MD Work Phone: [facility] 09-14-2024 10:37-0400 Body weight 91.81 kg Diego Huffman MD Work Phone: [facility] 09-14-2024 10:37-0400 Diastolic blood pressure 86 mm[Hg] Diego Huffman MD Work Phone: [facility] 09-14-2024 10:37-0400 Heart rate 63 /min Diego Huffman MD Work Phone: [facility] 09-14-2024 10:37-0400 SaO2% (BldA) [Mass fraction] 98 % Diego Huffman MD Work Phone: [facility] 09-14-2024 10:37-0400 Systolic blood pressure 134 mm[Hg] Diego Huffman MD Work Phone: [facility] 08-29-2024 13:15-0400 Body mass index (BMI) [Ratio] 25.81 kg/m2 Ana Resendez FERRYBOAT OPERATOR.ASSESSMENT MANAGER Work Phone: [facility] 08-29-2024 13:15-0400 Body weight 91.17 kg Ana Resendez FERRYBOAT OPERATOR.ASSESSMENT MANAGER Work Phone: [facility] 08-29-2024 13:15-0400 Diastolic blood pressure 82 mm[Hg] Ana Resendez FERRYBOAT OPERATOR.ASSESSMENT MANAGER Work Phone: [facility] 08-29-2024 13:15-0400 Heart rate 59 /min Ana Resendez FERRYBOAT OPERATOR.ASSESSMENT MANAGER Work Phone: [facility] 08-29-2024 13:15-0400 Respiratory rate 16 /min Ana Resednez FERRYBOAT OPERATOR.ASSESSMENT MANAGER Work Phone: [facility] 08-29-2024 13:15-0400 SaO2% (BldA) [Mass fraction] 96 % Ana Resendez FERRYBOAT OPERATOR.ASSESSMENT MANAGER Work Phone: [facility] 08-29-2024 13:15-0400 Systolic blood pressure 142 mm[Hg] Ana Resendez FERRYBOAT OPERATOR.ASSESSMENT MANAGER Work Phone: [facility] 04-02-2024 10:57-0400 Body height 188 cm Cornelius Dasilva FERRYBOAT OPERATOR.ASSESSMENT MANAGER , DNP Work Phone: [facility] 04-02-2024 10:57-0400 Body mass index (BMI) [Ratio] 26.58 kg/m2 Cornelius Dasilva APRN.ASSESSMENT MANAGER, DNP Work Phone: [facility] 04-02-2024 10:57-0400 Body weight 93.89 kg Cornelius Steffany SKAGGS.ASSESSMENT MANAGER , DNP Work Phone: [facility] 03-12-2024 11:00-0400 Diastolic blood pressure 82 mm[Hg] Diego Huffman MD Work Phone: [facility] 03-12-2024 11:00-0400 Systolic blood pressure 136 mm[Hg] Diego Huffman MD Work Phone: [facility] 03-12-2024 10:37-0400 Body weight 94.8 kg Diego Huffman MD Work Phone: [facility] 03-12-2024 10:37-0400 Heart rate 61 /min Diego Huffman MD Work Phone: [facility] 03-12-2024 10:37-0400 SaO2% (BldA) [Mass fraction] 92 % Diego Huffman MD Work Phone: [facility] 09-07-2023 10:26-0400 Diastolic blood pressure 82 mm[Hg] Diego Huffman MD Work Phone: [facility] 09-07-2023 10:26-0400 Heart rate 60 /min Diego Huffman MD Work Phone: [facility] 09-07-2023 10:26-0400 Systolic blood pressure 138 mm[Hg] Diego Huffman MD Work Phone: [facility] 09-07-2023 09:51-0400 Body weight 90.72 kg Diego Huffman MD Work Phone: [facility] 09-07-2023 09:51-0400 SaO2% (BldA) [Mass fraction] 97 % Diego Huffman MD Work Phone: [facility] 08-02-2023 09:42-0400 Body height 185.4 cm Paul Chatterjee PA-C Work Phone: [facility] 08-02-2023 09:42-0400 Body temperature 97.2 [degF] Paul Chatterjee PA-C Work Phone: [facility] 08-02-2023 09:42-0400 Body weight 90.36 kg Paul Chatterjee PA-C Work Phone: [facility] 08-02-2023 09:42-0400 Diastolic blood pressure 82 mm[Hg] Paul Chatterjee PA-C Work Phone: [facility] 08-02-2023 09:42-0400 Heart rate 58 /min Paul Chatterjee PA-C Work Phone: [facility] 08-02-2023 09:42-0400 Respiratory rate 14 /min Paul Chatterjee PA-C Work Phone: [facility] 08-02-2023 09:42-0400 SaO2% (BldA) [Mass fraction] 93 % Paul Chatterjee PA-C Work Phone: [facility] 08-02-2023 09:42-0400 Systolic blood pressure 140 mm[Hg] Paul Chatterjee PA-C Work Phone: [facility] 07-08-2023 15:36-0400 Body weight 89.81 kg Diego Huffman MD Work Phone: [facility] 07-08-2023 15:36-0400 Diastolic blood pressure 68 mm[Hg] Diego Huffman MD Work Phone: [facility] 07-08-2023 15:36-0400 Heart rate 68 /min Diego Huffman MD Work Phone: [facility] 07-08-2023 15:36-0400 SaO2% (BldA) [Mass fraction] 98 % Diego Huffman MD Work Phone: [facility] 07-08-2023 15:36-0400 Systolic blood pressure 120 mm[Hg] Diego Huffman MD Work Phone: [facility] 03-02-2023 09:18-0400 Body height 182.9 cm Diego Huffman MD Work Phone: [facility] 03-02-2023 09:18-0400 Body weight 92.44 kg Diego Huffman MD Work Phone: [facility] 03-02-2023 09:18-0400 Diastolic blood pressure 78 mm[Hg] Diego Huffman MD Work Phone: [facility] 03-02-2023 09:18-0400 Heart rate 60 /min Diego Huffman MD Work Phone: [facility] 03-02-2023 09:18-0400 SaO2% (BldA) [Mass fraction] 96 % Diego Huffman MD Work Phone: [facility] 03-02-2023 09:18-0400 Systolic blood pressure 120 mm[Hg] Diego Huffman MD Work Phone: [facility] 09-01-2022 14:54-0400 Body height 182.9 cm Diego Huffman MD Work Phone: [facility] 09-01-2022 14:54-0400 Body weight 88.18 kg Diego Huffman MD Work Phone: [facility] 09-01-2022 14:54-0400 Diastolic blood pressure 74 mm[Hg] Diego Huffman MD Work Phone: [facility] 09-01-2022 14:54-0400 Heart rate 70 /min Diego Huffman MD Work Phone: [facility] 09-01-2022 14:54-0400 SaO2% (BldA) [Mass fraction] 97 % Diego Huffman MD Work Phone: [facility] 09-01-2022 14:54-0400 Systolic blood pressure 134 mm[Hg] Diego Huffman MD Work Phone: [facility] 07-07-2022 07:40-0400 Body weight 87.09 kg Ana Resendez APRN.ASSESSMENT MANAGER Work Phone: [facility] 07-07-2022 07:40-0400 Diastolic blood pressure 97 mm[Hg] Ana Resendez APRN.ASSESSMENT MANAGER Work Phone: [facility] 07-07-2022 07:40-0400 Heart rate 58 /min Ana Haagen FERRYBOAT OPERATOR.ASSESSMENT MANAGER Work Phone: [facility] 07-07-2022 07:40-0400 Respiratory rate 16 /min Ana Haagen FERRYBOAT OPERATOR.ASSESSMENT MANAGER Work Phone: [facility] 07-07-2022 07:40-0400 SaO2% (BldA) [Mass fraction] 95 % Ana Haagen FERRYBOAT OPERATOR.ASSESSMENT MANAGER Work Phone: [facility] 07-07-2022 07:40-0400 Systolic blood pressure 140 mm[Hg] Ana Haagen FERRYBOAT OPERATOR.ASSESSMENT MANAGER Work Phone: [facility] 04-16-2022 14:30-0400 Body temperature 97.59 [degF] Gracie Praisler-Wood FERRYBOAT OPERATOR.ASSESSMENT MANAGER Work Phone: [facility] 04-16-2022 14:30-0400 Body weight 88 kg Gracie Praisler-Wood FERRYBOAT OPERATOR.ASSESSMENT MANAGER Work Phone: [facility] 04-16-2022 14:30-0400 Diastolic blood pressure 68 mm[Hg] Gracie Praisler-Wood FERRYBOAT OPERATOR.ASSESSMENT MANAGER Work Phone: [facility] 04-16-2022 14:30-0400 Heart rate 60 /min Gracie Praisler-Wood FERRYBOAT OPERATOR.ASSESSMENT MANAGER Work Phone: [facility] 04-16-2022 14:30-0400 Respiratory rate 16 /min Gracie Praisler-Wood FERRYBOAT OPERATOR.ASSESSMENT MANAGER Work Phone: [facility] 04-16-2022 14:30-0400 SaO2% (BldA) [Mass fraction] 97 % Gracie Praisler-Wood FERRYBOAT OPERATOR.ASSESSMENT MANAGER Work Phone: [facility] 04-16-2022 14:30-0400 Systolic blood pressure 110 mm[Hg] Gracie Praisler-Wood FERRYBOAT OPERATOR.ASSESSMENT MANAGER Work Phone: [facility] 03-02-2022 13:51-0400 Body weight 86.82 kg Diego Huffman MD Work Phone: [facility] 03-02-2022 13:51-0400 Diastolic blood pressure 70 mm[Hg] Diego Huffman MD Work Phone: [facility] 03-02-2022 13:51-0400 Heart rate 60 /min Diego Huffman MD Work Phone: [facility] 03-02-2022 13:51-0400 Respiratory rate 16 /min Diego Huffman MD Work Phone: [facility] 03-02-2022 13:51-0400 SaO2% (BldA) [Mass fraction] 92 % Diego Huffman MD Work Phone: [facility] 03-02-2022 13:51-0400 Systolic blood pressure 102 mm[Hg] Diego Huffman MD Work Phone: [facility] 02-25-2022 16:52-0400 Body weight 87.09 kg Diego Huffman MD Work Phone: [facility] 02-25-2022 16:52-0400 Diastolic blood pressure 72 mm[Hg] Diego Huffman MD Work Phone: [facility] 02-25-2022 16:52-0400 Heart rate 68 /min Diego Huffman MD Work Phone: [facility] 02-25-2022 16:52-0400 SaO2% (BldA) [Mass fraction] 95 % Diego Huffman MD Work Phone: [facility] 02-25-2022 16:52-0400 Systolic blood pressure 102 mm[Hg] Diego Huffman MD Work Phone: [facility] Encounters Encounter Date Encounter Type Care Provider Facility Start: 05-24-2025 End: 05-27-2025 Telephone encounter Rosa Elena Cohen Work Phone: Podiatry Start: 05-23-2025 ambulatory DIEGO HUFFMAN Facility :[facility] Start: 05-23-2025 End: 05-23-2025 Subsequent hospital visit by physician [facility] Rej Work Phone: Radiology Comment on above: Neuroma [D36.10] Start: 05-01-2025 End: 05-01-2025 Patient encounter procedure [facility] Work Phone: [facility] Start: 05-01-2025 End: 05-01-2025 ambulatory [facility] Work Phone: [facility] Comment on above: Spirometry Start: 04-26-2025 ambulatory [facility] Facility :[facility] Start: 04-26-2025 End: 04-26-2025 Subsequent hospital visit by physician Virgilio [facility] Work Phone: Radiology Comment on above: Chronic cough [R05.3 ] Start: 04-26-2025 End: 04-26-2025 Patient encounter procedure Diego Huffman MD Work Phone: [facility] Comment on above: Essential hypertensi on, benign (Primary Dx); Chronic cough; Dysphagia, unspecified type; Gastroesophageal reflux disease, unspecified whether esophagitis present Start: 04-26-2025 End: 04-26-2025 ambulatory [facility] Facility:[facility] Start: 04-23-2025 End: 04-23-2025 Office outpatient visit 25 minutes Stacie Hood APRN.CNP Work Phone: Urology Comment on above: OAB (overactive blad margarito) (Primary Dx); BPH with obstruction/lower urinary tract symptoms Start: 04-23-2025 End: 04-23-2025 ambulatory [facility] Facility:[facility] Start: 04-12-2025 End: 04-12-2025 Telephone encounter Jaison [facility] Rad[facility] Comment on above: Appointment Start: 04-12-2025 End: 04-12-2025 Patient encounter procedure Rosa Elena Cohen Work Phone: Podiatry Comment on above: Neuroma (Primary Dx) ; Plantar fasciitis of left foot Start: 04-12-2025 End: 04-12-2025 ambulatory [facility] Facility:[facility] Start: 04-12-2025 End: 04-12-2025 Subsequent hospital visit by physician X[facility] Kim Work Phone: Radiology Comment on [...] (overactive bladder) Start: 03-20-2025 End: 03-20-2025 ambulatory [facility] Facility:[facility] Start: 03-15-2025 End: 03-15-2025 Patient encounter procedure Diego Huffman MD Work Phone: [facility] Comment on above: Essential hypertensi on, benign (Primary Dx); History of atrial fibrillation; Benign prostatic hyperplasia with nocturia; Memory loss; Gastroesophageal reflux disease, unspecified whether esophagitis present; Encounter for immunization Start: 03-15-2025 End: 03-15-2025 ambulatory [facility] Facility:[facility] Start: 03-08-2025 End: 03-08-2025 Follow-up encounter Diego Huffman MD Work Phone: [facility] Comment on above: Results Start: 03-08-2025 End: 03-08-2025 ambulatory [facility] Facility:[facility] Start: 03-03-2025 End: 03-03-2025 ambulatory [facility] Facility:[facility] Start: 03-03-2025 End: 03-03-2025 Patient encounter procedure Amanda Zavala APRN.CNP Work Phone: [facility] Comment on above: Sore throat (Primary Dx) Start: 02-28-2025 End: 02-28-2025 Telephone encounter Diego Huffman MD Work Phone: Pulmonology [facility] Comment on above: Results Start: 02-27-2025 End: 02-27-2025 ambulatory [facility] Facility:[facility] Start: 02-18-2025 End: 02-18-2025 ambulatory CORNELIUS DASILVA Facility:[facility] Start: 02-18-2025 End: 02-18-2025 Patient encounter procedure Cornelius Dasilva APRN.KIANA MANUEL Work Phone: Urology Comment on above: OAB (overactive blad margarito) (Primary Dx); Benign prostatic hyperplasia with nocturia; Urgency of urination; Nocturia Start: 01-26-2025 End: 01-29-2025 Follow-up encounter Lynette Patel MD Work Phone: Cardiology Start: 01-25-2025 End: 01-25-2025 ambulatory LYNETTE PATEL Facility:[facility] Start: 01-22-2025 End: 01-22-2025 Subsequent hospital visit by physician Xr [facility] Work Phone: Radiology Comment on above: Acute cough [R05.1] Start: 01-22-2025 End: 01-22-2025 ambulatory [facility] Facility:[facility] Start: 01-22-2025 End: 01-22-2025 Office outpatient visit 25 minutes Sebastian Hernandez PA-C Work Phone: [facility] Comment on above: Acute cough (Primary Dx); Influenza A Start: 01-07-2025 End: 01-07-2025 ambulatory [facility] Facility:[facility] Start: 01-07-2025 End: 01-07-2025 Patient encounter procedure Cornelius Dasilva APRN.CNP, DNP Work Phone: Urology Comment on above: Benign prostatic hyp erplasia with nocturia (Primary Dx); Urgency of urination Start: 12-27-2024 End: 12-27-2024 ambulatory [facility] Facility:[facility] Start: 12-27-2024 End: 12-27-2024 Patient encounter procedure Lynette Patel MD Work Phone: Cardiology Comment on above: S/P MVR (mitral valv e repair) (Primary Dx); Aortic valve insufficiency, etiology of cardiac valve disease unspecified; Tinnitus of right ear; Thick nasal mucus Start: 12-19-2024 End: 12-19-2024 ambulatory [facility] Facility:[facility] Start: 12-19-2024 End: 12-19-2024 Subsequent hospital visit by physician [facility] (I-Stat/1.5t) Work Phone: Radiology Comment on above: 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] Start: 12-10-2024 End: 12-10-2024 ambulatory DIEGO ARMIDA Facility:[facility] Start: 12-10-2024 End: 12-10-2024 Patient encounter procedure Rosa Elena Ramon MD Work Phone: Otolaryngology Comment on above: 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 (Primary Dx); Tinnitus, bilateral; PND (post-nasal drip) Vasomotor rhinitis ( Primary Dx); Tinnitus, unspecified laterality; Tinnitus, bilateral; Sensorineural hearing loss, asymmetrical Start: 11-06-2024 End: 11-06-2024 ambulatory DIEGO HUFFMAN Facility:[facility] Start: 11-06-2024 End: 11-06-2024 Patient encounter procedure Rosa Elena Cohen Work Phone: Podiatry Comment on above: Neuroma (Primary Dx) ; Foot pain, right Start: 10-08-2024 End: 10-08-2024 ambulatory [facility] Facility:[facility] Start: 10-08-2024 End: 10-08-2024 Patient encounter procedure Cornelius Dasilva APRN.ASSESSMENT MANAGER, DNP Work Phone: Urology Comment on above: Benign prostatic hyp erplasia with nocturia (Primary Dx); Urgency of urination Start: 10-03-2024 End: 10-03-2024 Telephone encounter Diego Huffman MD Work Phone: [facility] Comment on above: Results Start: 09-26-2024 End: 09-26-2024 Subsequent hospital visit by physician Virgilio [facility] Work Phone: Radiology Comment on above: Foot pain, right [M7 9.671] Start: 09-26-2024 End: 09-26-2024 Patient encounter procedure Diego Huffman MD Work Phone: [facility] Comment on above: Foot pain, right (Pr imary Dx); Benign prostatic hyperplasia with nocturia; Essential hypertension, benign; Tinnitus of both ears Start: 09-26-2024 End: 09-26-2024 ambulatory [facility] Facility:[facility] Start: 09-14-2024 End: 09-14-2024 Patient encounter procedure Diego Huffman MD Work Phone: [facility] Comment on above: Essential hypertensi on, benign (Primary Dx); Postoperative atrial fibrillation (HCC); Vasomotor rhinitis; Tinnitus, unspecified laterality Start: 09-14-2024 End: 09-14-2024 ambulatory [facility] Facility:[facility] Start: 08-29-2024 End: 08-29-2024 Office outpatient visit 15 minutes Ana Resendez APRN.ASSESSMENT MANAGER Work Phone: [facility] Comment on above: Dizziness (Primary D x); Encounter for immunization; Essential hypertension, benign; S/P MVR (mitral valve repair); Urgency of urination Start: 08-29-2024 End: 08-29-2024 ambulatory [facility] Facility:[facility] Start: 08-27-2024 End: 08-27-2024 Emergency department patient visit Diego Armida Facility:[facility] Start: 08-27-2024 End: 08-27-2024 ambulatory [facility] Facility:[facility] Start: 08-27-2024 End: 08-27-2024 Patient encounter procedure Leonarda Dutta APRN.ASSESSMENT MANAGER Work Phone: [facility] Comment on above: Dizziness (Primary D x); Lightheadedness Start: 07-31-2024 End: 07-31-2024 Patient encounter procedure Fidencio Renee PA-C Work Phone: [facility] Comment on above: Need for influenza v accination (Primary Dx) Start: 07-31-2024 End: 07-31-2024 ambulatory DIEGO HUFFMAN Facility:[facility] Start: 07-11-2024 Refill Diego Huffman MD Work Phone: [facility] Comment on above: Refill Request Start: 04-02-2024 End: 04-02-2024 Patient encounter procedure Cornelius Dasilva APRN.ASSESSMENT MANAGER, DNP Work Phone: Urology Comment on above: Benign prostatic hyp erplasia with nocturia (Primary Dx); Urgency of urination Start: 03-15-2024 Telephone encounter Diego Huffman MD Work Phone: Pulmonology [facility] Comment on above: Results Start: 03-12-2024 End: 03-12-2024 Patient encounter procedure Diego Huffman MD Work Phone: [facility] Comment on above: Essential hypertensi on, benign (Primary Dx); S/P MVR (mitral valve repair); Benign prostatic hyperplasia with nocturia; Urgency of urination Start: 09-07-2023 End: 09-07-2023 Patient encounter procedure Diego Huffman MD Work Phone: [facility] Comment on above: Essential hypertensi on, benign (Primary Dx); Encounter for immunization; S/P MVR (mitral valve repair); Benign prostatic hyperplasia with nocturia; Dermatitis Start: 08-02-2023 End: 08-02-2023 Patient encounter procedure Paul Chatterjee PA-C Work Phone: Urology Comment on above: Urgency of urination (Primary Dx); Nocturia; Benign prostatic hyperplasia with nocturia Start: 07-08-2023 End: 07-08-2023 Patient encounter procedure Diego Huffman MD Work Phone: [facility] Comment on above: Urgency of urination (Primary Dx); Nocturia; Benign prostatic hyperplasia with nocturia Start: 04-06-2023 End: 04-06-2023 Patient encounter procedure Smith Short MD Work Phone: Otolaryngology Comment on above: Vasomotor rhinitis ( Primary Dx); Tinnitus, bilateral; Gastroesophageal reflux disease, unspecified whether esophagitis present Start: 03-03-2023 Telephone encounter Diego Huffamn MD Work Phone: [facility] Comment on above: Results Start: 03-02-2023 End: 03-02-2023 Subsequent hospital visit by physician Xr [facility] Topic Work Phone: Radiology Comment on above: Acute pain of right knee [M25.561] Start: 03-02-2023 End: 03-02-2023 Patient encounter procedure Diego Huffman MD Work Phone: [facility] Comment on above: Essential hypertensi on, benign [...] encounter procedure Diego Huffman MD Work Phone: [facility] Comment on above: Essential hypertensi on, benign (Primary Dx); Encounter for immunization; Postoperative atrial fibrillation (HCC); Gastroesophageal reflux disease, unspecified whether esophagitis present Start: 07-07-2022 End: 07-07-2022 Subsequent hospital visit by physician Virgilio [facility] English Work Phone: Radiology Comment on above: Acute pain of right knee [M25.561] Start: 07-07-2022 End: 07-07-2022 Office outpatient visit 15 minutes Ana Resendez APRN.ASSESSMENT MANAGER Work Phone: [facility] Comment on above: Acute pain of left s houlder (Primary Dx); Essential hypertension, benign; Environmental and seasonal allergies; Acute pain of right knee Start: 07-05-2022 Telephone encounter Diego Huffman MD Work Phone: [facility] Comment on above: Right Knee Pain Start: 05-25-2022 Telephone encounter Luis Jammie Cordero DO Work Phone: Cardiology Comment on above: Results (Echo) Start: 04-19-2022 Telephone encounter James Rouse MD Work Phone: [facility] Comment on above: Results (Thyroid US) Start: 04-19-2022 End: 04-19-2022 Subsequent hospital visit by physician Us [facility] Work Phone: Radiology Comment on above: Globus sensation [R0 9.89] Start: 04-17-2022 Telephone encounter Gracie Rossi APRN.ASSESSMENT MANAGER Work Phone: [facility] Comment on above: Results Start: 04-16-2022 End: 04-16-2022 Subsequent hospital visit by physician Xr [facility] [place] Work Phone: Radiology Comment on above: Globus sensation [R0 9.89] Start: 04-16-2022 End: 04-16-2022 Patient encounter procedure Gracie Aj APRN.ASSESSMENT MANAGER Work Phone: [facility] Comment on above: Cough (Primary Dx); Globus sensation Start: 03-11-2022 Telephone encounter Nurse Card Admin [facility] Work Phone: Cardiology Comment on above: Stress Test Instruct ions Start: 03-02-2022 End: 03-02-2022 Patient encounter procedure [facility], Specimen Start: 03-02-2022 End: 03-02-2022 Subsequent hospital visit by physician Xr [facility] [place] Work Phone: Radiology Comment on above: Chest pain, unspecif ied type [R07.9] Start: 03-02-2022 End: 03-02-2022 Patient encounter procedure Diego Huffman MD Work Phone: [facility] [place] Comment on above: Chest pain, unspecif ied type (Primary Dx); S/P MVR (mitral valve repair); Bradycardia following surgery; Postoperative atrial fibrillation (HCC); Essential hypertension, benign; Mitral valve disorder Start: 02-25-2022 End: 02-25-2022 Patient encounter procedure Diego Huffman MD Work Phone: [facility] Comment on above: URI, acute (Primary Dx) Start: 10-23-2013 End: 11-03-2013 Patient encounter status Cornelius Dasilva APRN.ASSESSMENT MANAGER, DNP Work Phone: [facility] Procedures Date Procedure Procedure Detail Performing [...] Narciso Jaquez MD Work Phone: Start: 03-15-2025 [email or web address] COVID-19 VACCINE AGE 12+ YR (COMIRNATY) Diego Huffman MD Work Phone: Start: 03-03-2025 STREP A MOLECULAR (POC) Amanda Abran FERRYBOAT OPERATOR.ASSESSMENT MANAGER Work Phone: Start: 02-18-2025 Urnls dip stick/tablet rgnt auto w/o microscopy Cornelius Dasilva FERRYBOAT OPERATOR.ASSESSMENT MANAGER, DNP Work Phone: Start: 01-22-2025 Radiologic exam chest 2 views Sebastian Hernandez PAFamiliaC Work Phone: Start: 01-22-2025 INFLUENZA A&B MOLECULAR (POC) Sebastian Augustus PA-C Work Phone: Start: 12-19-2024 Mri brain brain stem w/o w/contrast material Rosa Elena Ramon MD Work Phone: Start: 12-10-2024 HEARING TEST/AUDIOGRAM Ani Tavares Ashley HOLBROOK Work Phone: Start: 10-08-2024 Urnls dip stick/tablet rgnt auto w/o microscopy Cornelius Dasilva FERRYBOAT OPERATOR.ASSESSMENT MANAGER, DNP Work Phone: Start: 08-29-2024 PFIZER-BIONTECH COVID-19 VACCINE AGE 12+ YR (COMIRNATY) Ana Resendez FERRYBOAT OPERATOR.ASSESSMENT MANAGER Work Phone: Start: 03-12-2024 Adult depression screening [...] shoulder complete minimum 2 views Ana Resendez FERRYBOAT OPERATOR.ASSESSMENT MANAGER Work Phone: Start: 07-07-2022 Radiologic exam knee complete 4/more views Ana Resendez FERRYBOAT OPERATOR.ASSESSMENT MANAGER Work Phone: Start: 04-19-2022 Us soft tissue head & neck real time imge docm Gracie Aj FERRYBOAT OPERATOR.ASSESSMENT MANAGER Work Phone: Start: 04-16-2022 Radiologic exam chest 2 views Gracie Aj FERRYBOAT OPERATOR.ASSESSMENT MANAGER Work Phone: Start: 04-16-2022 Radiologic examination neck soft tissue Gracie Aj FERRYBOAT OPERATOR.ASSESSMENT MANAGER Work Phone: Start: 03-02-2022 Radiologic exam chest 2 views Diego Huffman MD Work Phone: Start: 03-02-2022 Adult depression screening assessment Diego Huffmna MD Work Phone: Start: 07-02-2019 Adult depression [...] Author Start: 02-28-2028 Diabetes Screening Diabetes Screening [facility] Start: 03-14-2027 Diabetes Screening Diabetes Screening [facility] Start: 06-22-2026 Urine microalbumin profile [facility] Start: 03-02-2026 DIABETES SCREEN DIABETES SCREEN [facility] Start: 03-02-2026 Diabetes Screening Diabetes Screening [facility] Start: 09-17-2025 End: 09-17-2025 Patient encounter procedure 09/17/2025 2:40 PM EDT Office Visit Family Medicine [place] [address] [place] [address] Diego Huffman MD [address] [place] [address] 6 month follow up [facility] [place] Comment on above: 6 month follow up Start: 07-01-2025 End: 07-01-2025 Patient encounter procedure Cardiology Comment on above: 6 month follow up FOLLOW UP - POST VERONIKA TING Start: 06-25-2025 End: 06-25-2025 Patient encounter procedure 06/25/2025 3:30 PM EDT Office Visit Podiatry [address] [place], [place] [phone] Rosa Elena Cohen [address], [place] [id number] discuss us results Podiatry Comment on above: discuss us results Start: 06-20-2025 End: 06-20-2025 Patient encounter procedure 06/20/2025 10:00 AM EDT Appointment Radiology [address] [place] [address] Dysphagia, unspecified type [R13.10]; Gastroesophageal reflux disease, unspecified whether esophagitis present [K21.9] Radiology Comment on above: Dysphagia, unspecified type [R13.10]; Ga stroesophageal reflux disease, unspecified whether esophagitis present [K21.9] Start: 06-04-2025 End: 06-04-2025 Patient encounter procedure 06/04/2025 2:20 PM EDT Office Visit Urology [address] [address] Stacie Hood, FERRYBOAT OPERATOR.ASSESSMENT MANAGER [address] [place] [address] 6 wks follow up Urology Comment on above: 6 wks follow up Start: 05-23-2025 End: 05-23-2025 Patient encounter procedure 05/23/2025 2:25 PM EDT Appointment Radiology [address] [place] [address] US FOOT RT; KHOI NEUROMA - EVAL 2ND+3RD IMS FOR NEUROMA Radiology Comment on above: US FOOT RT; KHOI NEUROMA - EVAL 2ND+3R D IMS FOR NEUROMA Start: 05-01-2025 End: 05-01-2025 Patient encounter procedure 05/01/2025 1:30 PM EDT Office Visit Urology [address] [address] Narciso Jaquez MD [address] [place] [address] 6 wk cysto follow up Urology Comment on above: 6 wk cysto follow up Start: 05-01-2025 End: 05-01-2025 ambulatory [facility] Comment on above: Chronic cough [R05.3] Start: 04-23-2025 End: 04-23-2025 Patient encounter procedure 04/23/2025 11:20 AM EDT Office Visit Urology [address] [address] Satcie Hood, FERRYBOAT OPERATOR.ASSESSMENT MANAGER [address] [place] [address] 8 WK F/U Urology Comment on above: 8 WK F/U Start: 04-12-2025 End: 04-12-2025 Patient encounter procedure 04/12/2025 10:45 AM EDT Office Visit Podiatry [address] [place], [place] [phone] Rosa Elena Cohen [address] [place], [place] [phone] bilateral foot follow up Podiatry Comment on above: bilateral foot follow up Start: 04-01-2025 End: 04-01-2025 Patient encounter procedure 04/01/2025 11:00 AM EDT Office Visit Urology [address] [address] Cornelius Dasilva APRN.ASSESSMENT MANAGER, DNP [address] [place] [address] 8 WK F/U Urology Comment on above: 8 WK F/U Start: 03-20-2025 End: 03-20-2025 Patient encounter procedure 03/20/2025 9:30 AM EDT Office Visit Urology [address] [address] Narciso Jaquez MD [address] [place] [address] Cysto TRUS Urology Comment on above: Cysto [...] atrial fibrillation (HCC) Expected: 03/15/2025, Expires: 06/14/2025 [facility] Work Phone: Comment on above: Expected: 03/15/2025, Expires: Start: 03-15-2025 End: 06-14-2025 Comprehensive metabolic 2000 panel - Serum or Plasma COMPREHENSIVE METABOLIC PANEL Lab Routine Essential hypertension, benign Postoperative atrial fibrillation (HCC) Expected: 03/15/2025, Expires: 06/14/2025 [facility] Comment on above: Expected: 03/15/2025, Expires: Start: 03-15-2025 End: 06-14-2025 Lipid 1996 panel - Serum or Plasma LIPID PANEL BASIC Lab Routine Essential hypertension, benign Expected: 03/15/2025, Expires: 06/14/2025 [facility] Comment on above: Expected: 03/15/2025, Expires: Start: 03-12-2025 Anxiety Screening Anxiety Screening [facility] Start: 03-12-2025 Depression Screening Depression Screening [facility] Start: 03-12-2025 RSV Vaccine (1 - 1-dose 60+ series) RSV Vaccine (1 - 1-dose 60+ series) [facility] Comment on above: Postponed from 2002 (Declined at t his time) Start: 03-12-2025 RSV Vaccine (1 - 1-dose 75+ series) RSV Vaccine (1 - 1-dose 75+ series) [facility] Comment on above: Postponed from 2017 (Declined at t his time) Start: 03-07-2025 End: 02-28-2026 CARBOXYHEMOGLOBIN ELLE CARBOXYHEMOGLOBIN ELLE Lab Routine Polycythemia Expected: 03/07/2025, Expires: 02/28/2026 [facility] Comment on above: Expected: 03/07/2025, Expires: Start: 03-07-2025 End: 02-28-2026 CBC W Auto Differential panel - Blood COMPLETE BLOOD COUNT AND DIFFERENTIAL Lab Routine Polycythemia Expected: 03/07/2025, Expires: 02/28/2026 [facility] Work Phone: Comment on above: Expected: 03/07/2025, Expires: Start: 03-02-2025 DIABETES SCREEN DIABETES SCREEN [facility] Start: 02-27-2025 Covid-19 Vaccine () Covid-19 Vaccine () [facility] Start: 02-18-2025 End: 02-18-2025 Patient encounter procedure 02/18/2025 9:00 AM EDT Office Visit Urology [address] [place], [place] [phone] Cornelius Dasilva APRN.ASSESSMENT MANAGER, DNP [address] [place], [place] [phone] 6 WK F/U for Overactive Bladdder / OK PER DB Urology Comment on above: 6 WK F/U for Overactive Bladdder / OK PE R DB Start: 01-25-2025 End: 01-25-2025 Patient encounter procedure 01/25/2025 2:40 PM EST Office Visit Cardiology [address] [address] S/P MVR (mitral valve repair) [Z98.890] Cardiology Comment on above: S/P MVR (mitral valve repair) [Z98.890] Start: 01-07-2025 End: 01-07-2025 Patient encounter procedure 01/07/2025 1:30 PM EST Office Visit Urology [address] [place], [place] [phone] Cornelius Dasilva APRN.ASSESSMENT MANAGER, DNP [address] [place], [place] [phone] 3 MTH F/U FOR BPH, Overactive Bladdder. Urology Comment on above: 3 MTH F/U FOR BPH, Overactive Bladdder. Start: 12-27-2024 End: 12-27-2025 Echocardiography ECHO Cardiology Routine S/P MVR (mitral valve repair) Expected: 12/27/2024, Expires: 12/27/2025 [facility] Work Phone: Comment on above: Expected: 12/27/2024, Expires: Start: 12-26-2024 End: 12-26-2024 Patient encounter procedure 12/26/2024 1:40 PM EST Office Visit Cardiology [address] [address] Luis Cordero DO [address] [place] [address] establish care Cardiology Comment on above: establish care Start: 12-19-2024 End: 12-19-2024 Patient encounter procedure 12/19/2024 1:30 PM EST Appointment Radiology [address] [place], [place] [phone] 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 [H90.42 Radiology Comment on above: Sensorineural hearing loss (SNHL) of lef t ear with unrestricted hearing of right ear [H90.42 Start: 12-10-2024 End: 03-11-2025 CREATININE BLD CREATININE BLD Lab Routine 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 Expected: 12/10/2024, Expires: 03/11/2025 [facility] Comment on above: Expected: 12/10/2024, Expires: Start: 12-10-2024 End: 12-10-2024 Patient encounter procedure Audiology Comment on above: Vasomotor rhinitis [J30.0] Start: 11-28-2024 Advance Directive Discussion Advance Directive Discussion [facility] Start: 11-28-2024 Medicare Advantage Annual Wellness Visit Medicare Advantage Annual Wellness Visit [facility] Start: 11-06-2024 End: 11-06-2024 Patient encounter procedure 11/06/2024 1:15 PM EST Office Visit Podiatry [address] [place] [address] Rosa Elena Cohen [address] [facility] [address] Foot pain, right [M79.671] Podiatry Comment on above: Foot pain, right [M79.671] Start: 10-08-2024 End: 10-08-2024 Patient encounter procedure 10/08/2024 1:30 PM EST Office Visit Urology [address] [place] [address] [place] [address] Cornelius Dasilva, FERRYBOAT OPERATOR.ASSESSMENT MANAGER, DNP [address] [facility] [place] [address] Urgency of urination [R39.15] Urology Comment on above: Urgency of urination [R39.15] Start: 09-14-2024 End: 09-14-2024 Patient encounter procedure 09/14/2024 11:00 AM EDT Office Visit Family [facility] [place] [address] [place] [address] Diego Huffman MD [address] [facility] [place] [address] 6 month follow up Family Medicine [place] Comment on above: 6 month follow up Start: 09-07-2024 End: 09-07-2024 Patient encounter procedure 09/07/2024 2:20 PM EDT Office Visit Cardiology [address] [address] Luis Cordero, DO [address] [place], [place] [id number] S/P MVR (mitral valve repair) [Z98.890] Cardiology Comment on above: S/P MVR (mitral valve repair) [Z98.890] Start: 09-02-2024 DIABETES SCREEN DIABETES SCREEN [facility] Start: 08-01-2024 End: 08-01-2024 Patient encounter procedure 08/01/2024 11:00 AM EDT Office Visit Cardiology [address] [address] Bhanu Johansen, DO [address] [place] [address] S/P MVR (mitral valve repair) [Z98.890] Cardiology Comment on above: S/P MVR (mitral valve repair) [Z98.890] Start: 07-29-2024 Covid-19 Vaccine ( season) Covid-19 Vaccine ( season) [facility] Start: 07-29-2024 Covid-19 Vaccine ( season) Covid-19 Vaccine ( season) [facility] Start: 07-29-2024 Influenza vaccination Influenza Vaccine (#1) [facility] Start: 07-08-2024 ANNUAL PCP TEAM CHRONIC DISEASE VISIT ANNUAL PCP TEAM CHRONIC DISEASE VISIT [facility] Start: 07-08-2024 BP CONTROLLED (<130/80) BP CONTROLLED (<130/80) [facility] Start: 03-08-2024 End: 05-08-2024 CBC W Auto Differential panel - Blood CBC + DIFF Lab Routine Essential hypertension, benign Expected: 03/08/2024, Expires: 05/08/2024 [facility] Work Phone: Comment on above: Expected: 03/08/2024, Expires: Start: 03-08-2024 End: 05-08-2024 Comprehensive metabolic 2000 panel - Serum or Plasma COMP METABOLIC PANEL Lab Routine Essential hypertension, benign Expected: 03/08/2024, Expires: 05/08/2024 [facility] Work Phone: Comment on above: Expected: 03/08/2024, Expires: 4 Start: 03-08-2024 End: 05-08-2024 Lipid 1996 panel - Serum or Plasma LIPID PANEL BASIC Lab Routine Essential hypertension, benign Expected: 03/08/2024, Expires: 05/08/2024 [facility] Work Phone: Comment on above: Expected: 03/08/2024, Expires: Start: 03-02-2024 ANNUAL PCP TEAM CHRONIC DISEASE VISIT ANNUAL PCP TEAM CHRONIC DISEASE VISIT [facility] Start: 03-02-2024 BP CONTROLLED (<130/80) BP CONTROLLED (<130/80) [facility] Start: 01-08-2024 Covid-19 Vaccine ( season) Covid-19 Vaccine () [facility] Start: 11-27-2023 Advance Directive Discussion Advance Directive Discussion [facility] Comment on above: Postponed from 11/28/2022 (Declined at t his time) Start: 09-01-2023 ANNUAL PCP TEAM CHRONIC DISEASE VISIT ANNUAL PCP TEAM CHRONIC DISEASE VISIT [facility] Start: 07-29-2023 Influenza vaccination INFLUENZA (#1) [facility] Start: 07-07-2023 ANNUAL PCP TEAM CHRONIC DISEASE VISIT ANNUAL PCP TEAM CHRONIC DISEASE VISIT [facility] Start: 05-11-2023 BP CONTROLLED (<130/80) BP CONTROLLED (<130/80) [facility] Start: 04-16-2023 BP CONTROLLED (<130/80) BP CONTROLLED (<130/80) [facility] Start: 03-02-2023 Adult depression screening assessment DEPRESSION SCREENING [facility] Start: 03-02-2023 ANNUAL PCP TEAM CHRONIC DISEASE VISIT ANNUAL PCP TEAM CHRONIC DISEASE VISIT [facility] Start: 03-02-2023 BP CONTROLLED (<130/80) BP CONTROLLED (<130/80) [facility] Start: 03-02-2023 End: 05-02-2023 CBC W Auto Differential panel - Blood [facility] Work Phone: Comment on above: Expected: 03/02/2023, Expires: 3 Start: 03-02-2023 End: 05-02-2023 Comprehensive metabolic 2000 panel - Serum or Plasma [facility] Work Phone: Comment on above: Expected: 03/02/2023, Expires: 3 Start: 03-02-2023 End: 05-02-2023 LIPID PANEL, NONFASTING [facility] Work Phone: Comment on above: Expected: 03/02/2023, Expires: 3 Start: 02-25-2023 ANNUAL PCP TEAM CHRONIC DISEASE VISIT ANNUAL PCP TEAM CHRONIC DISEASE VISIT [facility] Start: 02-25-2023 BP CONTROLLED (<130/80) BP CONTROLLED (<130/80) [facility] Start: 02-02-2023 COVID-19 VACCINE (5 - Pfizer series) COVID-19 VACCINE (5 - Pfizer series) [facility] Start: 11-28-2022 ADVANCE DIRECTIVE DISCUSSION ADVANCE DIRECTIVE DISCUSSION [facility] Start: 11-28-2022 DEPRESSION ASSESSMENT DEPRESSION ASSESSMENT [facility] Start: 09-01-2022 End: 09-01-2023 CBC W Auto Differential panel - Blood CBC + DIFF Lab Routine Essential hypertension, benign Expected: 09/01/2022, Expires: 09/01/2023 [facility] Work Phone: Comment on above: Expected: 09/01/2022, Expires: 3 Start: 09-01-2022 End: 09-01-2023 Comprehensive metabolic 2000 panel - Serum or Plasma COMP METABOLIC PANEL Lab Routine Essential hypertension, benign Expected: 09/01/2022, Expires: 09/01/2023 [facility] Work Phone: Comment on above: Expected: 09/01/2022, Expires: 3 Start: 09-01-2022 End: 09-01-2023 Lipid 1996 panel - Serum or Plasma LIPID PANEL BASIC Lab Routine Essential hypertension, benign Expected: 09/01/2022, Expires: 09/01/2023 [facility] Work Phone: Comment on above: Expected: 09/01/2022, Expires: 3 Start: 07-29-2022 Influenza vaccination INFLUENZA (#1) [facility] Start: 04-16-2022 End: 06-16-2022 Thyrotropin [Units/volume] in Serum or Plasma [facility] Work Phone: Comment on above: Expected: 04/16/2022, Expires: 2 Start: 03-02-2022 End: 05-02-2022 Basic metabolic 2000 panel - Serum or Plasma [facility] Work Phone: Comment on above: Expected: 03/02/2022, Expires: 2 Start: 03-02-2022 End: 05-02-2022 CBC W Auto Differential panel - Blood [facility] Work Phone: Comment on above: Expected: 03/02/2022, Expires: 2 Start: 03-02-2022 End: 03-02-2023 SARS-CoV-2 (COVID-19) RNA [Presence] in Respiratory specimen by JELENA with probe detection PRE-PROCEDURE & PRE-OPERATIVE COVID Microbiology Routine Chest pain, unspecified type 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 Expected: 03/02/2022, Expires: 03/02/2023 [facility] Work Phone: Comment on above: Expected: 03/02/2022, Expires: 3 Start: 01-17-2022 COVID-19 VACCINE (4 - Booster for Pfizer series) COVID-19 VACCINE (4 - Booster for Pfizer series) [facility] Start: 11-28-2021 ADVANCE DIRECTIVE DISCUSSION ADVANCE DIRECTIVE DISCUSSION [facility] Start: 11-11-2021 COVID-19 VACCINE (4 - Booster for Pfizer series) COVID-19 VACCINE (4 - Booster for Pfizer series) [facility] Start: 07-02-2020 Adult depression screening assessment DEPRESSION SCREENING [facility] Start: 2017 RSV Vaccine (1 - 1-dose 75+ series) RSV Vaccine (1 - 1-dose 75+ series) [facility] Start: 07-24-2011 PNEUMOCOCCAL: 65+ (2 - PCV) PNEUMOCOCCAL: 65+ (2 - PCV) [facility] Start: 1992 SHINGRIX VACCINE (1 of 2) SHINGRIX VACCINE (1 of 2) [facility] Start: 1960 BP CONTROLLED (<130/80) BP CONTROLLED (<130/80) [facility] BLADDER SCAN BLADDER SCAN Pro cedures Routine Benign prostatic hyperplasia with nocturia Urgency of urination Ordered: 04/02/2024 [facility] Work Phone: Comment on above: Ordered: 04/02/2024 CYSTO/TRUS ONLY CYSTO/TRUS ONLY Procedures Routine Benign prostatic hyperplasia with nocturia Urgency of urination Nocturia Ordered: 02/18/2025 [facility] Comment on above: Ordered: 02/18/2025 End: 03-02-2023 ECG COMPLETE ECG COMPLETE ECG Routine Chest pain, unspecified type 1 Occurrences starting 03/02/2022 until 03/02/2023 [facility] Work Phone: Comment on above: 1 Occurrences starting 03/02/2022 until 03/02/2023 Influenza virus A an d B RNA and SARS-CoV-2 (COVID-19) N gene panel - Respiratory specimen by JELENA with probe detection COVID WITH FLUA+B, ROUTINE Microbiology Routine URI, acute Ordered: 02/25/2022 [facility] Work Phone: Comment on above: Ordered: 02/25/2022 End: 05-26-2026 LUNG VOLUMES LUNG VOLUMES PFT Routine Chronic cough 1 Occurrences starting 04/26/2025 until 05/26/2026 [facility] Comment on above: 1 Occurrences starting 04/26/2025 until 05/26/2026 LUNG VOLUMES LUNG VOLUMES PFT Routine Chronic cough 05/01/2025 12:40 PM EDT [facility] Work Phone: End: 01-09-2026 MR Brain WO and W contrast IV MRI BRAIN WO/W IVCON Radiology Routine 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 1 Occurrences starting 12/10/2024 until 01/09/2026 [facility] Work Phone: Comment on above: 1 Occurrences starting 12/10/2024 until 01/09/2026 POST VOID RESIDUAL POST VOID RES IDUAL Procedures Routine Benign prostatic hyperplasia with nocturia Urgency of urination Ordered: 10/08/2024 [facility] Work Phone: Comment on above: Ordered: 10/08/2024 POST VOID RESIDUAL POST VOID RES IDUAL Procedures Routine Benign prostatic hyperplasia with nocturia Urgency of urination Ordered: 01/07/2025 [facility] Work Phone: Comment on above: Ordered: 01/07/2025 POST VOID RESIDUAL POST VOID RES IDUAL Procedures Routine Benign prostatic hyperplasia with nocturia Urgency of urination Nocturia OAB (overactive bladder) Ordered: 02/18/2025 [facility] Work Phone: Comment on above: Ordered: 02/18/2025 End: 05-26-2026 SPIROMETRY WITH DILATOR IF OBSTRUCTED SPIROMETRY WITH DILATOR IF OBSTRUCTED PFT Routine Chronic cough 1 Occurrences starting 04/26/2025 until 05/26/2026 [facility] Work Phone: Comment on above: 1 Occurrences starting 04/26/2025 until 05/26/2026 SPIROMETRY WITH DILA TOR IF OBSTRUCTED SPIROMETRY WITH DILATOR IF OBSTRUCTED PFT Routine Chronic cough 05/01/2025 12:40 PM EDT [facility] Work Phone: End: 03-02-2023 STRESS ECHO TREADMILL STRESS ECHO TREADMILL Cardiology Routine Chest pain, unspecified type 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 1 Occurrences starting 03/02/2022 until 03/02/2023 [facility] Work Phone: Comment on above: 1 Occurrences starting 03/02/2022 until 03/02/2023 UA DIP, URINE (POC) UA DIP, URIN E (POC) Lab Routine Benign prostatic hyperplasia with nocturia Urgency of urination Nocturia OAB (overactive bladder) Ordered: 03/20/2025 [facility] Work Phone: Comment on above: Ordered: 03/20/2025 End: 05-12-2026 US Lower extremity - right US FOOT RIGHT Radiology Routine Neuroma 1 Occurrences starting 04/12/2025 until 05/12/2026 [facility] Work Phone: Comment on above: 1 Occurrences starting 04/12/2025 until 05/12/2026 End: 05-16-2023 Us soft tissue head & neck real time imge docm US THYROID/PARATHYROID Radiology STAT Globus sensation 1 Occurrences starting 04/16/2022 until 05/16/2023 [facility] Work Phone: Comment on above: 1 Occurrences starting 04/16/2022 until 05/16/2023 End: 05-26-2026 XR Chest PA and Lateral XR CHEST 2V FRONTAL/LAT Radiology Routine Chronic cough 1 Occurrences starting 04/26/2025 until 05/26/2026 [facility] Comment on above: 1 Occurrences starting 04/26/2025 until 05/26/2026 XR Chest PA and Lateral XR CHEST 2V FRONTAL/LAT Radiology Routine Chronic cough 04/26/2025 4:01 PM EDT [facility] End: 05-26-2026 XR Esophagus Views W contrast PO XR ESOPHAGRAM Radiology Routine Dysphagia, unspecified type Gastroesophageal reflux disease, unspecified whether esophagitis present 1 Occurrences starting 04/26/2025 until 05/26/2026 [facility] Comment on above: 1 Occurrences starting 04/26/2025 until 05/26/2026 XR Foot - bilateral AP and Lateral and oblique XR FOOT GENERAL 3V AP/LAT/OBL BILATERAL Radiology Routine Bilateral foot pain 04/12/2025 10:04 AM EDT [facility] Work Phone: End: 10-26-2025 XR Foot - right AP and Lateral and oblique XR FOOT GENERAL 3V AP/LAT/OBL RIGHT Radiology Routine Foot pain, right 1 Occurrences starting 09/26/2024 until 10/26/2025 [facility] Work Phone: Comment on above: 1 Occurrences starting 09/26/2024 until 10/26/2025 XR Foot - right AP a nd Lateral and oblique XR FOOT GENERAL 3V AP/LAT/OBL RIGHT Radiology Routine Foot pain, right 09/26/2024 5:37 PM EDT [facility] End: 03-31-2024 XR KNEE GENERAL 4V AP BOTH/PA BOTH/LAT/MERC RIGHT XR KNEE GENERAL 4V AP BOTH/PA BOTH/LAT/MERC RIGHT Radiology Routine Acute pain of right knee 1 Occurrences starting 03/02/2023 until 03/31/2024 [facility] Work Phone: Comment on above: 1 Occurrences starting 03/02/2023 until 03/31/2024 XR KNEE GENERAL 4V A P BOTH/PA BOTH/LAT/MERC RIGHT XR KNEE GENERAL 4V AP BOTH/PA BOTH/LAT/MERC RIGHT Radiology Routine Acute pain of right knee 03/02/2023 10:35 AM EDT [facility] Work Phone: [facility] Immunizations Immunization Date Immunization Notes Care Provider [facility] 03-15-2025 COVID-19 vaccine, ag e 12+ yr (PFIZER-BIONTECH COMIRNATY) Diego Huffman MD Work Phone: [facility] 11-07-2024 zoster vaccine recombinant Diego Huffman MD Work Phone: [facility] 08-29-2024 COVID-19 vaccine, ag e 12+ yr (PFIZER-BIONTECH COMIRNATY) Ana Resendez FERRYBOAT OPERATOR.ASSESSMENT MANAGER Work Phone: [facility] 07-31-2024 influenza, high dose seasonal, preservative-free Fidencio Renee PA-C Work Phone: [facility] 09-07-2023 COVID-19 vaccine, ag e 12+ yr, 2022- season (PFIZER-BIONTECH) Diego Huffman MD Work Phone: [facility] 09-07-2023 influenza (HD-IIV4) vaccine, age 65+ yr, high dose, quadrivalent, PF (FLUZONE HIGH-DOSE) Diego Huffman MD Work Phone: [facility] 09-07-2023 influenza virus vaccine, unspecified formulation Diego Huffman MD Work Phone: [facility] 09-01-2022 pneumococcal Conjuga te, unspecified formulation Diego Huffman MD Work Phone: [facility] Work Phone: 09-01-2022 influenza, high-dose , quadrivalent vaccine (FLUZONE HIGH DOSE QUADRIVALENT) Diego Huffman MD Work Phone: [facility] 09-01-2022 pneumococcal (PCV20) vaccine, 20 valent (PREVNAR 20) Diego Huffman MD Work Phone: [facility] 09-16-2021 COVID-19 original vaccine, age 12+ yr, monovalent (PFIZER-BIONTECH - PURPLE TOP) Smith Short MD Work Phone: [facility] 09-16-2021 influenza, high-dose , quadrivalent vaccine (FLUZONE HIGH DOSE QUADRIVALENT) Diego Huffman MD Work Phone: [facility] 02-19-2021 COVID-19 original vaccine, age 12+ yr, monovalent (PFIZER-BIONTECH - PURPLE TOP) Smith Short MD Work Phone: [facility] 01-30-2021 COVID-19 original vaccine, age 12+ yr, monovalent (PFIZER-BIONTECH - PURPLE TOP) Smith Short MD Work Phone: [facility] 09-26-2020 influenza, high-dose , quadrivalent vaccine (FLUZONE HIGH DOSE QUADRIVALENT) Diego Huffman MD Work Phone: [facility] 09-07-2019 influenza, high dose seasonal, preservative-free Diego Huffman MD Work Phone: [facility] 08-22-2018 influenza, high dose seasonal, preservative-free Diego Huffman MD Work Phone: [facility] 09-08-2016 influenza, high dose seasonal, preservative-free Diego Huffman MD Work Phone: [facility] 06-22-2016 diphtheria and tetan us toxoids, adsorbed for pediatric use Diego Huffman MD Work Phone: [facility] Work Phone: 06-22-2016 tetanus and diphther ia toxoids, adsorbed, preservative free, for adult use (5 Lf of tetanus toxoid and 2 Lf of diphtheria toxoid) Diego Huffman MD Work Phone: [facility] 08-27-2014 influenza, high dose seasonal, preservative-free Diego Huffman MD Work Phone: [facility] 08-20-2013 influenza virus vaccine, unspecified formulation Diego Huffman MD Work Phone: [facility] Work Phone: 08-19-2012 influenza virus vaccine, unspecified formulation Diego Huffman MD Work Phone: [facility] 08-25-2011 influenza virus vaccine, unspecified formulation Diego Huffman MD Work Phone: [facility] 03-17-2011 tetanus toxoid, redu bart diphtheria toxoid, and acellular pertussis vaccine, adsorbed Diego Huffman MD Work Phone: [facility] Work Phone: 09-14-2010 influenza virus vaccine, unspecified formulation Diego Huffman MD Work Phone: [facility] 07-24-2010 pneumococcal polysaccharide vaccine, 23 valent Diego Huffman MD Work Phone: [facility] Payers Date Payer Category Payer Self-pay [id number] 2021 Medicare [facility] MEDICARE OO S ABDON [facility] MED[facility] PPO OOS [id number] 2021-Present [phone] [address] [place] [address] PPO [id number] 2021 Medicare [facility] MEDICARE OO S ANTHKRYSTAL [facility] MEDICARE PPO OOS [id number] 2021-Present [phone] [address] [place] [address] PPO [id number] 2021 Medicare (Managed Care) BS MED ICARE OOS [id number] 2021 Medicare [id number] Unknown [id number] Social History Date Type Detail Facility Tobacco smoking stat [facility] Never smoked tobacco [facility] Start: 02-25-2022 End: 05-01-2025 Alcohol intake Current non-drinker of alcohol (finding) [facility] Start: 1940 Sex Assigned At Not on file C [facility] Start: 02-15-2022 End: 09-09-2022 Exposure to SARS-CoV-2 (event) Not sure [facility] Start: 1940 Sex Assigned At Male W [facility] Work Phone: Start: 04-06-2023 End: 07-08-2023 History of Social function [facility] Work Phone: Start: 04-06-2023 End: 07-08-2023 Tobacco use panel [facility] Work Phone: Adult Depression Screening Assessment 0 [facility] Work Phone: Medical Equipment Procedure Code Equipment Code Equipment Origin al Text Equipment Identifier Dates [place] Ptfe 1.2 Cm X 10 Cm - [id number] Start: 10-30-2013 Band Anlplsty 35 mm Melgar - [id number] Start: 10-30-2013 Comment on above: Description: annulop lasty band Mesh Surgipro Me dium Clear Polypropylene 2cm Surgical Nonabsorbable Plug - [id number] Start: 08-25-2020 Functional Status Date Assessment Result Facility 02-24-2015 Are you deaf, or do you have serious difficulty hearing Yes 02/24/2015 1:06 PM EDT Rozina Horne MA Yes [facility] 02-24-2015 Are you blind, or do you have serious difficulty seeing, even when wearing glasses No 02/24/2015 1:06 PM EDT Rozina Horne MA No [facility] 02-24-2015 Do you have serious difficulty walking or climbing stairs Yes 02/24/2015 1:06 PM EDT Rozina Horne MA Yes [facility] 02-24-2015 Do you have difficul ty dressing or bathing No 02/24/2015 1:06 PM EDT Rozina Horne MA No [facility] 02-24-2015 Because of a physica l, mental, or emotional condition, do you have difficulty doing errands alone such as visiting a physician's office or shopping No 02/24/2015 1:06 PM EDT Rozina Horne MA No [facility] Mental Status Date Assessment Result Facility 02-24-2015 Because of a physica l, mental, or emotional condition, do you have serious difficulty concentrating, remembering, or making decisions No 02/24/2015 1:06 PM EDT Rozina Horne MA No [facility] Clinical Notes 07-08-2015 to 05-27-2025 Telephone Encounter - Amber Villa LPN - 05/27/2025 10:31 AM EDTTelephone Encounter - Amber Villa LPN - 05/27/2025 10:31 AM EDTTelephone Encounter - Amber Villa LPN - 05/27/2025 10:31 AM EDT Note Date & Type Note Facility 05-27-2025 Telephone encounter Note Patient notified of results and provider's instructions. Patient verbalizes understanding. Amber Villa LPN [facility] Work Phone: 05-27-2025 Telephone encounter Note Images from the original note were not included. Rosa Elena Cohen [facility] Podiatry Pool3 days ago Please call patient to confirm his ultrasound confirms neuroma. He can make follow-up to discuss results Rosa Elena Cohen DPM [facility] 05-27-2025 Miscellaneous Notes Patient notified of results and provider's instructions. Patient verbalizes understanding. Amber Villa LPN Images from the original note were not included. Rosa Elena Cohen Podiatry Pool3 days ago Please call patient to confirm his ultrasound confirms neuroma. He can make follow-up to discuss results Rosa Elena Cohen DPM documented in this encounter [facility] 04-26-2025 History of Present illness Narrative [...] PATIENT PRESENTS WITH AN IMPLANTABLE OR ATTACHED SALARY AND WAGE ADMINISTRATOR: No RADIOLOGY DEPARTMENT: General X-ray: Exam(s) Completed: Chest X-Ray PERIPHERAL IV DATA: Not applicable SIGNED BY: RT Carloz(Mercedes) April 26, 2025 3:54 PM documented in this encounter [facility] 04-26-2025 Note HNO ID: [id number] Author: OSMANI WATERMAN RT(R) Service: Radiology Author [...] PATIENT PRESENTS WITH AN IMPLANTABLE OR ATTACHED SALARY AND WAGE ADMINISTRATOR: No RADIOLOGY DEPARTMENT: General X-ray: Exam(s) Completed: Chest X-Ray PERIPHERAL IV DATA: Not applicable SIGNED BY: RT Carloz(Mercedes) April 26, 2025 3:54 PM [facility] 04-26-2025 Note HNO ID: [id number] Author: DIEGO HUFFMAN MD Service: ? Author [...] to swallow. - Recent episodes after eating austrian and also Martiniquais steak. - Unable to finish meals due [...] Supple, no lympha (more content not included)... [facility] 04-26-2025 History of Present illness Narrative Maximo is an 84-year-old male presenting for evaluation of chronic cough and thick mucus production. HPI Chronic Cough and Mucus Production: - Persistent cough and thick mucus production, x2 years. - Symptoms are constant, but exacerbated during and after eating. - Describes mucus as thick and difficult to swallow. - Recent episodes after eating austrian and also Martiniquais steak. - Unable to finish meals due [...] to patient) Diego Huffman MD Recording using [employer] software for draft documentation of the visit was discussed with the patient/authorized novelties sales representative; all questions welcomed and answered. Patient/authorized novelties sales representative agreed to proceed documented in this encounter [facility] 04-26-2025 Instructions Diego Huffman MD - [...] contact the clinic. documented in this encounter [facility] 04-23-2025 Note HNO ID: [id number] Author: STACIE HOOD APRN.KALEB Service: ? Author [...] BPH with obst (more content not included)... [facility] 04-23-2025 History of Present illness Narrative Maximo [...] Stacie Hood CNP documented in this encounter [facility] 04-23-2025 Note HNO ID: [id number] Author: MIKEY DACOSTA MA Service: ? Author Type: Director Long Term Care Type: Progress Notes Filed: 04/23/2025 12:59 Note Text: Post void bladder scan completed. 0 ml residual remaining. Results reported to Stacie Hood CNP [facility] 04-13-2025 Note HNO ID: [id number] Author: ROSA ELENA COHEN, ? Service: ? [...] with the treatment plan. Attestation Recording using [employer] software for draft documentation of the visit was discussed with the patient/authorized novelties sales representative; all questions welcomed and answered. Patient/authorized novelties sales representative agreed to proceed Rosa Elena Cohen DPM [facility] 04-13-2025 History of Present illness Narrative Jeremie [...] with the treatment plan. Attestation Recording using [employer] software for draft documentation of the visit was discussed with the patient/authorized novelties sales representative; all questions welcomed and answered. Patient/authorized novelties sales representative agreed to proceed Rosa Elena Cohen DPM AMB ROOMING INTAKE FLOWSHEET DATA Pain Pain Level: 10 Pain Location: (bilateral feet) Description: Sharp Duration Amount of Time: (ongoing) Frequency: Continuous Intervention/Comfort measure: Other: See comment (none)\ documented in this encounter [facility] 04-12-2025 Telephone encounter Note PT scheduled for MSK US on 05/23/25 at 2:25 PM at [place]. [facility] 04-12-2025 Miscellaneous Notes PT scheduled for [...] Slot held: N/A documented in this encounter [facility] 04-12-2025 Telephone encounter Note Visit Type: [...] of our four locations. Slot held: N/A [facility] 04-12-2025 Instructions Rosa Elena Cohen - [...] the ultrasound findings. documented in this encounter [facility] 04-12-2025 Note HNO ID: [id number] Author: KENISHA ARGUETA MA Service: ? Author Type: Director Long Term Care Type: Progress Notes Filed: 04/13/2025 10:41 Note Text: AMB ROOMING INTAKE FLOWSHEET DATA Pain Pain Level: 10 Pain Location: (bilateral feet) Description: Sharp Duration Amount of Time: (ongoing) Frequency: Continuous Intervention/Comfort measure: Other: See comment (none) [facility] 04-12-2025 History of Present illness Narrative Radiology [...] PATIENT PRESENTS WITH AN IMPLANTABLE OR ATTACHED SALARY AND WAGE ADMINISTRATOR: No RADIOLOGY DEPARTMENT: General X-ray: Exam(s) Completed: Spine X-Ray(s): Cervical AP / LAT / OBL odontoid PERIPHERAL IV DATA: Not applicable SIGNED BY: RT Khushi(Mercedes) April 12, 2025 10:17 AM documented in this encounter [facility] 04-12-2025 Note HNO ID: [id number] Author: TEQUILA DELONG RT(Mercedes) Service: ? Author Type: Operating Engineer Apprentice Type: Progress Notes Filed: 04/12/2025 10:32 Note [...] PATIENT PRESENTS WITH AN IMPLANTABLE OR ATTACHED SALARY AND WAGE ADMINISTRATOR: No RADIOLOGY DEPARTMENT: General X-ray: Exam(s) Completed: Spine X-Ray(s): Cervical AP / LAT / OBL odontoid PERIPHERAL IV DATA: Not applicable SIGNED BY: RT Khushi(R) April 12, 2025 10:17 AM [facility] 04-12-2025 History of Present illness Narrative Radiology [...] PATIENT PRESENTS WITH AN IMPLANTABLE OR ATTACHED SALARY AND WAGE ADMINISTRATOR: No RADIOLOGY DEPARTMENT: General X-ray: Exam(s) Completed: Lower Extremity X-Ray(s): Foot, Bilateral PERIPHERAL IV DATA: Not applicable SIGNED BY: RT Khushi(Mercedes) April 12, 2025 9:50 AM documented in this encounter [facility] 04-12-2025 Note HNO ID: [id number] Author: TEQUILA DELONG RT(R) Service: ? Author Type: Operating Engineer Apprentice Type: Progress Notes Filed: 04/12/2025 10:03 Note [...] PATIENT PRESENTS WITH AN IMPLANTABLE OR ATTACHED SALARY AND WAGE ADMINISTRATOR: No RADIOLOGY DEPARTMENT: General X-ray: Exam(s) Completed: Lower Extremity X-Ray(s): Foot, Bilateral PERIPHERAL IV DATA: Not applicable SIGNED BY: RT Khushi(R) April 12, 2025 9:50 AM [facility] 04-09-2025 Telephone encounter Note Patient scheduled for this tuesday [facility] 04-09-2025 Miscellaneous Notes Patient scheduled for this tuesday Patient is calling wanting to know if there were any appointments open today ? patient is c/o right foot pain 10/10 nerve pain. Patient has been seen for this in past. Katty Hines LPN documented in this encounter [facility] 04-09-2025 Telephone encounter Note Patient is calling wanting to know if there were any appointments open today ? patient is c/o right foot pain 10/10 nerve pain. Patient has been seen for this in past. Katty Hines LPN [facility] 04-03-2025 Telephone encounter Note Called patient and made aware that new script had been written. [facility] 04-03-2025 Miscellaneous Notes Called patient and [...] review and advise. documented in this encounter [facility] 03-27-2025 Telephone encounter Note Patient calls [...] pharmacy is selected. Please review and advise. [facility] 03-20-2025 Instructions Narciso Jaquez MD - [...] not clear with increased fluids. PHONE NUMBERS: [phone] [place] [phone] PETTY [phone] [place] [address] [place] documented in this encounter [facility] 03-20-2025 Note HNO ID: [id number] Author: NARCISO JAQUEZ MD Service: ? Author Type: Physician Type: Progress Notes Filed: 03/20/2025 10:17 Note Text: [facility] UROLOGY PROCEDURE NOTE [facility] ([facility]) FLEXIBLE CYSTOURETHROSCOPY AND TRUS UROLOGY OUTPATIENT PROCEDURE NOTE UNIVERSAL PROTOCOL AND SAFETY CHECKLISTUNIVERSAL PROTOCOL / SAFETY CHECKLIST Procedure to be Performed: Cysto/TRUS Referral by: Humberto Dasilva APRN.ASSESSMENT MANAGER.DNP Indication: Bladder overactivity Sign In: A Moment [...] weeks Narciso Jaquez MD, MS Associate Staff [facility] 03-20-2025 History of Present illness Narrative Images from the original note were not included. [facility] [place] UROLOGY PROCEDURE NOTE [facility] ([facility]) FLEXIBLE CYSTOURETHROSCOPY AND TRUS UROLOGY OUTPATIENT PROCEDURE NOTE UNIVERSAL PROTOCOL AND SAFETY CHECKLISTUNIVERSAL PROTOCOL / SAFETY CHECKLIST Procedure to be Performed: Cysto/TRUS Referral by: Humberto Dasilva APRN.ASSESSMENT MANAGER.DNP Indication: Bladder overactivity Sign In: A Moment [...] weeks Narciso Jaquez MD, MS Associate Staff [facility] [place] [facility] documented in this encounter [facility] 03-15-2025 Note HNO ID: [id number] Author: DIEGO HUFFMAN MD Service: ? Author [...] Lymph 1.00 - 4.00 k/uL 1.39 1.26 [place]% % 12.4 12.3 Abs [place] <0.87 k/uL 0.56 0.50 Eosin% % 2.4 [...] (6' 1) Wt (more content not included)... [facility] 03-15-2025 History of Present illness Narrative Patient [...] Lymph 1.00 - 4.00 k/uL 1.39 1.26 [place]% % 12.4 12.3 Abs [place] <0.87 k/uL 0.56 0.50 Eosin% % 2.4 [...] Diego Huffman MD documented in this encounter [facility] 03-08-2025 Telephone encounter Note Pt notified. Sugar Slade MA [facility] 03-08-2025 Miscellaneous Notes Pt notified. Sugar Slade MA ----- Message from Diego Huffman MD sent at 03/08/2025 10:52 AM EDT ----- Repeat blood count is better. documented in this encounter [facility] 03-08-2025 Telephone encounter Note ----- Message from Diego Huffman MD sent at 03/08/2025 10:52 AM EDT ----- Repeat blood count is better. [facility] 03-03-2025 Note HNO ID: [id number] Author: AMANDA ZAVALA APRN.ASSESSMENT MANAGER Service: ? Author Type: Nurse Practitioner Type: [...] history is provided by the patient. No freight car builder was used. Sore Throat Review of Systems [...] with primary care to talk about possible junior systems analyst due to chronic sinus congestion and drainage. Patient says he has had drainage for many years. This could be a cause for the sore throat due to season changes. Patient agreeable to following up with PCP Amanda Zavala APRN.ASSESSMENT MANAGER MDM Procedures [facility] 03-03-2025 History of Present illness Narrative RADHA [...] history is provided by the patient. No freight car builder was used. Sore Throat Review of Systems [...] with primary care to talk about possible junior systems analyst due to chronic sinus congestion and drainage. Patient says he has had drainage for many years. This could be a cause for the sore throat due to season changes. Patient agreeable to following up with PCP Amanda Zavala APRN.CNP MDM Procedures documented in this encounter [facility] 02-28-2025 Telephone encounter Note Phoned patient left detailed message with lab results, notes from Dr Huffman on patient voicemail. [facility] 02-28-2025 Miscellaneous Notes Phoned patient left detailed message with lab results, notes from Dr Huffman on patient voicemail. Sannaeint's labs are stable except his red count is up. Recheck labs in one week. Can be due to too little fluids. Push fluids and recheck ordered labs. documented in this encounter [facility] 02-28-2025 Telephone encounter Note Sannaeint's labs are stable except his red count is up. Recheck labs in one week. Can be due to too little fluids. Push fluids and recheck ordered labs. [facility] 02-18-2025 Instructions Cornelius Dasilva APRN.KIANA MANUEL - 02/18/2025 9:22 AM EDT Follow up with Cornelius Dasilva APRN.KIANA MANUEL in 8 weeks Stop the Trospium 20mg tablets and Start trial of Trospium 60mg [place] [facility] team will call to schedule the [...] Dasilva APRN.KIANA MANUEL documented in this encounter [facility] 02-18-2025 History of Present illness Narrative [facility] MALE PATIENT - [...] is an option Plan for CYSTO/TRUS at [place] office follow up in 8 weeks. Sooner [...] which included preparing to see the patient, vnqv-yz-assv patient care, completing clinical documentation, performing a medically appropriate examination, counseling and educating the patient/family/caregiver and ordering medications, tests, or procedures. Cornelius Dasilva DNP, CNP Department of Urology [facility] Verified name and date of . [...] Appointment with Cornelius. documented in this encounter [facility] 02-18-2025 Note HNO ID: [id number] Author: CORNELIUS DASILVA APRN.KIANA MANUEL Service: ? Author Type: Nurse Practitioner Type: Progress Notes Filed: 02/18/2025 09:31 Note Text: [facility] MALE PATIENT - [...] Final 03/02/2023 1.0 (more content not included)... [facility] 02-18-2025 Note HNO ID: [id number] Author: KAYLI NEWMAN LPN Service: ? Author [...] the procedure well. Plan: Appointment with Cornelius. [facility] 01-29-2025 Telephone encounter Note Called pt to [...] echocardiogram in 1 year. Keep f/u appointment. [facility] 01-29-2025 Miscellaneous Notes Called pt to [...] Keep f/u appointment. documented in this encounter [facility] 01-22-2025 History of Present illness Narrative [...] PATIENT PRESENTS WITH AN IMPLANTABLE OR ATTACHED SALARY AND WAGE ADMINISTRATOR: No RADIOLOGY DEPARTMENT: General X-ray: Exam(s) Completed: Chest X-Ray PERIPHERAL IV DATA: Not applicable SIGNED BY: RT Khushi(R) January 22, 2025 11:07 AM documented in this encounter [facility] 01-22-2025 Note HNO ID: [id number] Author: TEQUILA DELONG RT(R) Service: ? Author Type: Operating Engineer Apprentice Type: Progress Notes Filed: 01/22/2025 11:12 Note [...] PATIENT PRESENTS WITH AN IMPLANTABLE OR ATTACHED SALARY AND WAGE ADMINISTRATOR: No RADIOLOGY DEPARTMENT: General X-ray: Exam(s) Completed: Chest X-Ray PERIPHERAL IV DATA: Not applicable SIGNED BY: RT Khushi(R) January 22, 2025 11:07 AM [facility] 01-22-2025 Note HNO ID: [id number] Author: SEBASTIAN HERNANDEZ PA-C Service: ? Author Type: Physician Glassine Machine Tender Type: Progress Notes Filed: 01/22/2025 11:35 Note Text: This note was created using klinifyriter. Subjective Maximo Nixon is a 84 year [...] BENZONATATE 100 MG CAPSULE Sebastian Hernandez PA-C [facility] 01-22-2025 History of Present illness Narrative This note was created using MEDOVENTter. Subjective Maximo Nixon is a 84 year [...] Sebastian Hernandez PA-C documented in this encounter [facility] 01-07-2025 Instructions Cornelius Dasilva APRN.KIANA MANUEL [...] Dasilva APRN.KIANA MANUEL documented in this encounter [facility] 01-07-2025 History of Present illness Narrative [facility] MALE PATIENT - [...] Urologist for this in the past. UA normal/DRAON Normal/No FHX of prostate cancer. Not interested [...] which included preparing to see the patient, obka-fq-gioo patient care, completing clinical documentation, performing a medically appropriate examination, counseling and educating the patient/family/caregiver and ordering medications, tests, or procedures. Cornelius Dasilva DNP, CNP Department of Urology [facility] documented in this encounter [facility] 01-07-2025 Note HNO ID: [id number] Author: CORNELIUS DASILVA APRN.KIANA MANUEL Service: ? Author Type: Nurse Practitioner Type: Progress Notes Filed: 01/07/2025 14:02 Note Text: [facility] MALE PATIENT - [...] 1.22 mg/dL Final (more content not included)... [facility] 12-27-2024 History of Present illness Narrative Images from the original note were not included. [facility] [place] SECTION OF REGIONAL CARDIOLOGY OUTPATIENT VISIT DATE 12/27/2024 OUTPATIENT VISIT TYPE NEW PRIMARY CARE PHYSICIAN: Diego Huffman [address] [place] [address] Patient is being seen at the request [...] mmHg. PHT 119, trace TR, 1-2+AR, 1+ CT, asc Ao 3.6 PAST MEDICAL HISTORY Diagnosis [...] Patel MD, FACC documented in this encounter [facility] 12-27-2024 Note HNO ID: [id number] Author: LYNETTE PATEL MD Service: ? Author Type: Physician Type: Progress Notes Filed: 12/27/2024 15:02 Note Text: [facility] [place] SECTION OF REGIONAL CARDIOLOGY OUTPATIENT VISIT DATE 12/27/2024 OUTPATIENT VISIT TYPE NEW PRIMARY CARE PHYSICIAN: Diego Huffman [address] [place] [address] Patient is being seen at the request [...] mmHg. PHT 119, trace TR, 1-2+AR, 1+ CT, asc Ao 3.6 PAST MEDICAL HISTORY Diagnosis [...] air cells, likely inflammatory. Lynette Patel MD, [facility] 12-19-2024 History of Present illness Narrative Radiology [...] PATIENT PRESENTS WITH AN IMPLANTABLE OR ATTACHED SALARY AND WAGE ADMINISTRATOR: No ALLERGIES: Reviewed and unchanged CONTRAST ALLERGY: NO. EXAM: MRI - CONTRAST TYPE: GROUP II PERIPHERAL IV DATA: Ambulatory: A peripheral IV was started in the Right hand with a Angio cath: 22 gauge. RADIOLOGY DEPARTMENT: MR; Exam(s) Completed: Head: IAC/CPA SIGNATURE: RT Ángel(R) PATIENT NAME: Maximo Nixon DATE: December 19, 2024 TIME: 2:08 PM documented in this encounter [facility] 12-19-2024 Note HNO ID: [id number] Author: DONA MORELOS RT(R) Service: ? Author [...] PATIENT PRESENTS WITH AN IMPLANTABLE OR ATTACHED SALARY AND WAGE ADMINISTRATOR: No ALLERGIES: Reviewed and unchanged CONTRAST ALLERGY: NO. EXAM: MRI - CONTRAST TYPE: GROUP II PERIPHERAL IV DATA: Ambulatory: A peripheral IV was started in the Right hand with a Angio cath: 22 gauge. RADIOLOGY DEPARTMENT: MR; Exam(s) Completed: Head: IAC/CPA SIGNATURE: RT Ángel(R) PATIENT NAME: Maximo Nixon DATE: December 19, 2024 TIME: 2:08 PM [facility] 12-10-2024 Note HNO ID: [id number] Author: ROSA ELENA RAMON MD Service: ? [...] physician via mail or electronic medical record. [facility] 12-10-2024 History of Present illness Narrative HPI [...] electronic medical record. documented in this encounter [facility] 12-10-2024 History of Present illness Narrative [facility] [place] AUDIOLOGIC EVALUATION REPORT Name: Maximo Nixon CC#: [id number] Date of Service: 12/10/2024 Date of : [...] week ago. 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 History of chemotherapy [...] evaluation of middle ear function. CPT code: 71536 RIGHT EAR: Normal ME pressure with enhanced TM compliance (mobility). LEFT EAR: Normal ME pressure with enhanced TM compliance (mobility). ACOUSTIC REFLEXES Description of procedure: This test is an objective measure of auditory and facial nerve pathways. CPT code: 92216, 76985 RIGHT EAR PROBE EAR: (ipsi right stimulus [...] bone conduction and speech recognition testing. CPT code:75825 RIGHT EAR: Hearing Sensitivity: WNL sloping to [...] strategies to enhance communication ability. * Call [phone] to schedule an appointment to assess your need for hearing aids. Request a HAE appointment. * Encouraged patient to reach out to insurance provider to determine if they are eligible for a hearing aid benefit. Patient was advised that if they return to [facility], the cost of hearing aids would likely be [id number]. 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 Author Type: Employee Benefits Manager Type: Progress Notes Filed: 12/10/2024 17:35 Note Text: [facility] [place] AUDIOLOGIC EVALUATION REPORT Name: Maximo Nixon [facility]#: [id number] Date of Service: 12/10/2024 Date of : [...] week ago. 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 History of chemotherapy [...] made. SUMMARY: Audiogram can be viewed under Forms/Audiology/[employer]. OTOSCOPY RIGHT EAR: Otoscopic inspection revealed ear canal was clear with an identifiable cone of light. LEFT EAR: Otoscopic inspection revealed ear canal was clear with an identifiable cone of light. TYMPANOMETRY Description of procedure: This test is an objective evaluation of middle ear function. CPT code: 00244 RIGHT EAR: Normal ME pressure with enhanced TM compliance (mobility). LEFT EAR: Normal ME pressure with enhanced TM compliance (mobility). ACOUSTIC REFLEXES Description of procedure: This test is an objective measure of auditory and facial nerve pathways. CPT code: 11913, 28198 RIGHT EAR PROBE EAR: (ipsi right stimulus [...] bone conduction and speech recognition testing. CPT code:54096 RIGHT EAR: Hearing Sensitivity: WNL sloping to [...] strategies to enhance communication ability. * Call [phone] to schedule an appointment to assess your need for hearing aids. Request a HAE appointment. * Encouraged patient to reach out to insurance provider to determine if they are eligible for a hearing aid benefit. Patient was advised that if they return to [facility], the cost of hearing aids would likely be [id number]. Yusef Marquez, [facility] Clinical and Senior Hearing Implant Employee Benefits Manager copied to: Rosa Elena Ramon MD [place] Abbrev- iation Definition Degree of hearing sensitivity dB range WNL within normal limits WNL 0 - 20 SNHL sensorineural hearing loss Mild 20-40 CHL conductive hearing loss Moderate 40-55 MHL mixed hearing loss Moderately-Severe 55-70 WRS word recognition score Severe 70-90 ME middle ear Profound 90 + TM tympanic me (more content not included)... [facility] 11-06-2024 Instructions Rosa Elena Cohen - 11/06/2024 [...] the pain is still present, please call [phone] and ask to speak to podiatry nurse. They will transfer you to my office. At that time, you can request to come in for an injection and we will bring you in right away Powerstep Original Full length. Can purchase at [employer] and boots,shoes and more here in English, [employer] in [place] or [place]. Also can find in [place] in [facility]. Powersteps can also be purchased online, starting [...] fits well together documented in this encounter [facility] 11-06-2024 Note HNO ID: [id number] Author: ROSA ELENA COHEN, ? Service: ? [...] warm to warm (more content not included)... [facility] 11-06-2024 History of Present illness Narrative Consultation [...] fracture ASSESSMENT: (D36.10) Neuroma (primary encounter diagnosis) (M79.062) Foot pain, right PLAN: 1. History and [...] Rosa Elena Cohen DPM Podiatry [address] [facility] [address] Dept: [phone] Dept AMB ROOMING INTAKE FLOWSHEET DATA Pain Pain Level: 10 Pain Location: Foot-Right Description: Sharp Duration Amount of Time: 3 Duration Units: Months Frequency: Continuous Intervention/Comfort measure: Relaxation, Reposition Patient presents with: Right Foot - New, Pain Amber Villa LPN documented in this encounter [facility] 11-06-2024 Note HNO ID: [id number] Author: AMBER VILLA LPN Service: ? Author Type: LICENSED NURSE Type: Progress Notes Filed: 11/06/2024 13:51 Note Text: AMB ROOMING INTAKE FLOWSHEET DATA Pain Pain Level: 10 Pain Location: Foot-Right Description: Sharp Duration Amount of Time: 3 Duration Units: Months Frequency: Continuous Intervention/Comfort measure: Relaxation, Reposition Patient presents with: Right Foot - New, Pain Amber Villa LPN [facility] 10-08-2024 Instructions Cornelius Dasilva APRN.CNP, DNP - [...] Dasilva APRN.KIANA MANUEL documented in this encounter [facility] 10-08-2024 History of Present illness Narrative [facility] MALE PATIENT - [...] which included preparing to see the patient, bbsb-hz-fdhv patient care, completing clinical documentation, performing a medically appropriate examination, counseling and educating the patient/family/caregiver and ordering medications, tests, or procedures. Cornelius Dasilva DNP, CNP Department of Urology [facility] Verified name and date of . [...] Appointment with Cornelius. documented in this encounter [facility] 10-08-2024 Note HNO ID: [id number] Author: CORNELIUS DASILVA APRN.KIANA MANUEL Service: ? Author Type: Nurse Practitioner Type: Progress Notes Filed: 10/08/2024 14:10 Note Text: [facility] MALE PATIENT - [...] Systems: PAIN A (more content not included)... [facility] 10-08-2024 Note HNO ID: [id number] Author: KAYLI NEWMAN LPN Service: ? Author [...] the procedure well. Plan: Appointment with Cornelius. [facility] 10-03-2024 Telephone encounter Note Patient notified. [facility] 10-03-2024 Miscellaneous Notes Patient notified. ----- Message from Vicki Lomax sent at 10/02/2024 3:00 PM EST ----- Xray right foot is normal documented in this encounter [facility] 10-03-2024 Telephone encounter Note ----- Message from Vicki Lomax sent at 10/02/2024 3:00 PM EST ----- Xray right foot is normal [facility] 09-26-2024 History of Present illness Narrative [...] PATIENT PRESENTS WITH AN IMPLANTABLE OR ATTACHED SALARY AND WAGE ADMINISTRATOR: No RADIOLOGY DEPARTMENT: General X-ray: Exam(s) Completed: Lower Extremity X-Ray(s): Foot, Right PERIPHERAL IV DATA: Not applicable SIGNED BY: RT Khushi(R) September 26, 2024 5:28 PM documented in this encounter [facility] 09-26-2024 Note HNO ID: [id number] Author: TEQUILA DELONG RT(R) Service: ? Author Type: Operating Engineer Apprentice Type: Progress Notes Filed: 09/26/2024 17:36 Note [...] PATIENT PRESENTS WITH AN IMPLANTABLE OR ATTACHED SALARY AND WAGE ADMINISTRATOR: No RADIOLOGY DEPARTMENT: General X-ray: Exam(s) Completed: Lower Extremity X-Ray(s): Foot, Right PERIPHERAL IV DATA: Not applicable SIGNED BY: RT Khushi(R) September 26, 2024 5:28 PM [facility] 09-26-2024 Note HNO ID: [id number] Author: DIEGO HUFFMAN MD Service: ? Author [...] Benign prostatic hyperplasia (more content not included)... [facility] 09-26-2024 History of Present illness Narrative Patient [...] Diego Huffman MD documented in this encounter [facility] 09-14-2024 Note HNO ID: [id number] Author: DIEGO HUFFMAN MD Service: ? Author [...] - CONSULT TO ENT Diego Huffman MD [facility] 09-14-2024 History of Present illness Narrative Patient [...] Diego Huffman MD documented in this encounter [facility] 08-29-2024 Instructions Ana Resendez APRN.CNP - 08/29/2024 1:34 PM EDT Eat regularly and have healthy snacks in between meals. Stay well hydrated. Schedule back with urology. Follow-up with cardiology as planned. Follow-up with Dr. Huffman as planned. documented in this encounter [facility] 08-29-2024 Note HNO ID: [id number] Author: ANA RESENDEZ APRN.CNP Service: ? Author [...] to the emergency room. He presented to [facility] on 08/27/2024 with complaints of lightheadedness [...] (Patient not taking: Reported on 04/02/2024) Ipratropium [place] (ATROVENT) 21 mcg (0.03 %) nasal spray [...] Supple, no adenopat (more content not included)... [facility] 08-29-2024 History of Present illness Narrative This [...] to the emergency room. He presented to [facility] on 08/27/2024 with complaints of lightheadedness [...] (Patient not taking: Reported on 04/02/2024) Ipratropium [place] (ATROVENT) 21 mcg (0.03 %) nasal spray [...] immunization - ICD9: V03.89, ICD10: Z23 - [email or web address] Kuli COVID-19 VACCINE AGE 12+ YR (COMIRNATY) 3. [...] as needed for worsening/no improvement. Ana Resendez APRN.ASSESSMENT MANAGER Duplicate. documented in this encounter [facility] 08-29-2024 Note HNO ID: [id number] Author: CHEYENNE ZAVALA MA Service: ? Author Type: Director Long Term Care Type: Progress Notes Filed: 08/29/2024 14:57 Note Text: Duplicate. [facility] 08-27-2024 Note HNO ID: [id number] Author: LEONARDA DUTTA APRN.ASSESSMENT MANAGER Service: ? Author Type: Nurse Practitioner Type: [...] Has been referred to [facility] 08-27-2024 History of Present illness Narrative Called [...] [facility] documented in this encounter [facility] 07-31-2024 Note HNO ID: [id number] Author: FIDENCIO RENEE PA-C Service: ? Author Type: Physician Glassine Machine Tender Type: Progress Notes Filed: 07/31/2024 15:23 Note Text: Flu shot ordered. Fidencio Renee PA-C 07/31/2024 [facility] 07-31-2024 History of Present illness Narrative Flu shot ordered. Fidencio Renee PA-C 07/31/2024 documented in this encounter [facility] 07-11-2024 Telephone encounter Note Prescription Refill [...] tablet by mouth once daily. Marci Curry [facility] July 11, 2024 8:40 AM [facility] 07-11-2024 Miscellaneous Notes Prescription Refill Information [...] 2024 8:40 AM documented in this encounter [facility] 04-02-2024 Instructions Cornelius Dasilva APRN.CNP, DNP [...] Dasilva APRN.CNP, DNP documented in this encounter [facility] 04-02-2024 Nurse Note Bladder scan obtained 0 ml of urine [facility] 04-02-2024 Nurse Note Bladder scan obtained 0 ml of urine documented in this encounter [facility] 04-02-2024 History of Present illness Narrative [facility] MALE PATIENT - HISTORY AND PHYSICAL EXAMINATION PATIENT: Maximo Nixon (83 year old) 04/02/2024 PCP: Diego Huffman MD Consultation requested by Dr. Diego Huffman [address] [facility] [address] for an opinion regarding BPH and my [...] (Patient not taking: Reported on 04/02/2024) Ipratropium [place] (ATROVENT) 21 mcg (0.03 %) nasal spray Use 2 Sprays in the nose twice daily. (Patient not taking: Reported on 04/02/2024) loratadine (CLARITIN) 10 mg tablet Take 1 tablet by mouth once daily. (Patient not taking: Reported on 04/02/2024) No current facility-administered medications for this visit. LABS: Glucose Urine-ED(POC) Negative 08/02/2023 Bilirubin Urine-ED(POC) Negative 08/02/2023 Ketone Urine-ED(POC) Negative 08/02/2023 Specific [place] Urine-ED(POC) 1.025 08/02/2023 HEMOGLOBIN/BLOOD UA (POCT) Negative [...] Cornelius Dasilva DNP, KALEB Department of Urology [facility] documented in this encounter [facility] 03-15-2024 Miscellaneous Notes TC to patient who verbalized understanding of providers message and has no questions at this time. AMANDA Richardson Let him know his labs are ok documented in this encounter [facility] 03-12-2024 Instructions Diego Huffman MD - 03/12/2024 10:55 AM EDT Can get RSV vaccine at a pharmacy. Get fasting labs. documented in this encounter [facility] 03-12-2024 History of Present illness Narrative [...] and doesn't believe he has seen a gut puller. He is overdue to follow with his gut puller. Will get it set back up. Gerd: [...] PLUS FIBRE ORAL) Take by mouth. Ipratropium [place] (ATROVENT) 21 mcg (0.03 %) nasal spray [...] Diego Huffman MD documented in this encounter [facility] 09-07-2023 History of Present illness Narrative [...] 81 mg by mouth once daily. Ipratropium [place] (ATROVENT) 21 mcg (0.03 %) nasal spray [...] YR, HIGH DOSE, QUADRIVALENT (FLUZONE HIGH-DOSE) - [employer] Kuli COVID-19 VACCINE (2022- [place]) AGE 12+ YR 3. 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 - CONSULT TO CARDIOLOGY 4. Benign prostatic hyperplasia with nocturia - ICD9: 600.01, 788.43, ICD10: N40.1, R35.1 - stable. Diego Huffman RTO in six months and prn. documented in this encounter [facility] 08-02-2023 Instructions Paul Chatterjee PA-C - 08/02/2023 10:49 AM EDT > 3 mo. Appt w/ B. JOSHUA Chatterjee, EUGENE FIGUEROA for new Rx Follow-up documented in this encounter [facility] 08-02-2023 History of Present illness Narrative Images from the original note were not included. [facility] NEW CON[facility] PATIENT [facility] [...] 2 tablets by mouth once daily. Ipratropium [place] (ATROVENT) 21 mcg (0.03 %) nasal spray [...] > 3 mo. Appt w/ B. JOSHUA Chtaterjee MT, PA-C for new Rx Follow-up I [...] Appointment with Paul. documented in this encounter [facility] 07-08-2023 History of Present illness Narrative [...] PLUS FIBRE ORAL) Take by mouth. Ipratropium [place] (ATROVENT) 21 mcg (0.03 %) nasal spray [...] Diego Huffman MD documented in this encounter [facility] 04-06-2023 History of Present illness Narrative [...] 4 - Moderate documented in this encounter [facility] 03-03-2023 Miscellaneous Notes TC to patient who verbalized understanding and has no questions at this time. Patient will call back if he decides he wants physical therapy. ESTEFANI Richardson Xray shows knee is ok. No changes in his prosthesis. If continues to have pain, can consider physical therapy or return to ortho documented in this encounter [facility] 03-02-2023 History of Present illness Narrative [...] 2023 10:20 AM documented in this encounter [facility] 03-02-2023 History of Present illness Narrative [...] Diego Huffman MD documented in this encounter [facility] 01-03-2023 Instructions Sean Walton II, OD [...] Walton II, OD documented in this encounter [facility] 01-03-2023 History of Present illness Narrative [...] Walton II, OD documented in this encounter [facility] 09-09-2022 History of Present illness Narrative [...] 2022 12:06 PM documented in this encounter [facility] 09-01-2022 Instructions Diego Huffman MD - 09/01/2022 3:10 PM EDT Can use flonase over the counter. documented in this encounter [facility] 09-01-2022 History of Present illness Narrative [...] Diego Huffman MD documented in this encounter [facility] 07-07-2022 History of Present illness Narrative [...] 2022 8:14 AM documented in this encounter [facility] 07-07-2022 Instructions Ana Resendez APRN.KALEB - 07/07/2022 8:06 AM EDT Get the xray of the right knee and left shoulder. documented in this encounter [facility] 07-07-2022 History of Present illness Narrative [...] Ana Resendez APRN.CNP documented in this encounter [facility] 07-05-2022 Miscellaneous Notes Noted Ana Resendez APRN.CNP Patient calling with request for referral to ORTHO for right knee pain. States he is wondering if his knee replacement has worn out. Knee pain started yesterday. Denies injury/trauma. Denies redness, swelling, inability to bear weight. At times difficult to walk. Advised OV for evaluation. Scheduled 07/07 with Aan Resendez GENERAL OFFICE CLERK. Will go to Urgent Care if symptoms worsen. Delmis Farias RN documented in this encounter [facility] 05-25-2022 Miscellaneous Notes Demonstrates normal LV systolic function and a well-functioning mitral valve repair. -Dr. Cordero ____ Reviewed results with pt. documented in this encounter [facility] 04-19-2022 Miscellaneous Notes Patient given results and verbalized understanding of instructions given. Radha Garcia Ultrasound of the thyroid showed the right side was slightly larger than the left but no significant abnormalities. Follow up with ENT if symptoms persist. documented in this encounter [facility] 04-17-2022 Miscellaneous Notes Patient given results and verbalized understanding of instructions given. Radha Garcia ----- Message from Gracie Aj APRN.CNP sent at 04/17/2022 9:52 AM EDT ----- Please advise patient his thyroid test was normal. documented in this encounter [facility] 04-16-2022 Instructions Gracie Aj APRN.CNP - 04/16/2022 3:44 PM EDT ASSESSMENT/PLAN: 1. Cough - ICD9: 786.2, ICD10: R05.9 (primary diagnosis) - XR CHEST 2V FRONTAL/LAT Radiologist IMPRESSION: Stable exam without acute findings. Acid Extractor: MALLY Transcribe Date/Time: Apr 16 2022 3:37P Dictated by : GILBERTO WIN MD 2. Globus sensation - ICD9: 306.4, ICD10: R09.89 - XR NECK SOFT TISSUE 2V AP/LAT. Radiologist IMPRESSION: No soft tissue abnormality identified. Acid Extractor: PSCB Transcribe Date/Time: Apr 16 2022 3:38P [...] Discussed expected course of illness Gracie Aj APRN.ASSESSMENT MANAGER documented in this encounter [facility] 04-16-2022 History of Present illness Narrative [...] 2022 3:21 PM documented in this encounter [facility] 04-16-2022 History of Present illness Narrative [...] Radiologist IMPRESSION: Stable exam without acute findings. Acid Extractor: MALLY Transcribe Date/Time: Apr 16 2022 3:37P Dictated by : GILBERTO WIN MD 2. Globus sensation - ICD9: 306.4, ICD10: R09.89 - XR NECK SOFT TISSUE 2V AP/LAT. Radiologist IMPRESSION: No soft tissue abnormality identified. Acid Extractor: PSCUzma Transcribe Date/Time: Apr 16 2022 3:38P [...] Discussed expected course of illness Gracie Aj APRN.ASSESSMENT MANAGER documented in this encounter [facility] 03-11-2022 Miscellaneous Notes Call to pt [...] floor at Radiology: [address]; [place] [address] *This stress test will appear as 3 appointments on your schedule. You may get multiple reminder calls, but please arrive at the earliest scheduled appointment. * If you need to cancel or reschedule this test or have any questions regarding this test, please call [phone]. documented in this encounter [facility] 03-02-2022 History of Present illness Narrative [...] previous ov copied and pasted. CARDIO:last saw [facility] Cardiology in 11/2019. Was to follow [...] Abs Lymph 1.00 - 4.00 k/uL 1.35 E[place]ka% % 10.6 Abs [place] <0.87 k/uL 0.42 Eosin% % 4.3 Abs [...] months and prn. documented in this encounter [facility] 02-25-2022 History of Present illness Narrative [...] Huffman RTO prn. documented in this encounter [facility] 07-08-2015 History of Past i llness [...] Cardiac Surgical prep: N/A SIGNATURE: HUNG Juarez ASSESSMENT MANAGER CHECKED BY: DATE of SERVICE: 10/23/2013 TIME [...] of this encounter (statuses as of 02/25/2022) [facility]2015 History of Past illness Narrative* Problem [...] Cardiac Surgical prep: N/A SIGNATURE: HUNG Juarez ASSESSMENT MANAGER CHECKED BY: DATE of SERVICE: 10/23/2013 TIME [...] of this encounter (statuses as of 03/02/2022) [facility]2015 History of Past illness Narrative* Problem [...] Cardiac Surgical prep: N/A SIGNATURE: HUNG Juarez [facility] CHECKED BY: DATE of SERVICE: 10/23/2013 TIME [...] of this encounter (statuses as of 03/11/2022) [facility]2015 History of Past illness Narrative* Problem [...] Cardiac Surgical prep: N/A SIGNATURE: HUNG Juarez ASSESSMENT MANAGER CHECKED BY: DATE of SERVICE: 10/23/2013 TIME [...] of this encounter (statuses as of 04/16/2022) [facility]2015 History of Past illness Narrative* Problem [...] Cardiac Surgical prep: N/A SIGNATURE: HUNG Juarez [facility] CHECKED BY: DATE of SERVICE: 10/23/2013 TIME [...] of this encounter (statuses as of 04/17/2022) [facility]2015 History of Past illness Narrative* Problem [...] Cardiac Surgical prep: N/A SIGNATURE: HUNG Juarez ASSESSMENT MANAGER CHECKED BY: DATE of SERVICE: 10/23/2013 TIME [...] of this encounter (statuses as of 04/19/2022) [facility]2015 History of Past illness Narrative* Problem [...] Cardiac Surgical prep: N/A SIGNATURE: HUNG Juarez ASSESSMENT MANAGER CHECKED BY: DATE of SERVICE: 10/23/2013 TIME [...] of this encounter (statuses as of 04/20/2022) [facility]2015 History of Past illness Narrative* Problem [...] Cardiac Surgical prep: N/A SIGNATURE: HUNG Juarez ASSESSMENT MANAGER CHECKED BY: DATE of SERVICE: 10/23/2013 TIME [...] of this encounter (statuses as of 05/25/2022) [facility]2015 History of Past illness Narrative* Problem [...] Cardiac Surgical prep: N/A SIGNATURE: HUNG Juarez [facility] CHECKED BY: DATE of SERVICE: 10/23/2013 TIME [...] of this encounter (statuses as of 07/05/2022) [facility]2015 History of Past illness Narrative* Problem [...] Cardiac Surgical prep: N/A SIGNATURE: HUNG Juarez ASSESSMENT MANAGER CHECKED BY: DATE of SERVICE: 10/23/2013 TIME [...] of this encounter (statuses as of 07/07/2022) [facility]2015 History of Past illness Narrative* Problem [...] Cardiac Surgical prep: N/A SIGNATURE: HUNG Juarez ASSESSMENT MANAGER CHECKED BY: DATE of SERVICE: 10/23/2013 TIME [...] of this encounter (statuses as of 09/01/2022) [facility]2015 History of Past illness Narrative* Problem [...] Cardiac Surgical prep: N/A SIGNATURE: HUNG Juarez ASSESSMENT MANAGER CHECKED BY: DATE of SERVICE: 10/23/2013 TIME [...] of this encounter (statuses as of 09/09/2022) [facility]2015 History of Past illness Narrative* Problem [...] Cardiac Surgical prep: N/A SIGNATURE: HUNG Juarez [facility] CHECKED BY: DATE of SERVICE: 10/23/2013 TIME [...] of this encounter (statuses as of 01/04/2023) [facility]2015 History of Past illness Narrative* Problem [...] Cardiac Surgical prep: N/A SIGNATURE: HUNG Juarez ASSESSMENT MANAGER CHECKED BY: DATE of SERVICE: 10/23/2013 TIME [...] of this encounter (statuses as of 03/02/2023) [facility]2015 History of Past illness Narrative* Problem [...] Cardiac Surgical prep: N/A SIGNATURE: HUNG Juarez ASSESSMENT MANAGER CHECKED BY: DATE of SERVICE: 10/23/2013 TIME [...] of this encounter (statuses as of 03/03/2023) [facility]2015 History of Past illness Narrative* Problem [...] Cardiac Surgical prep: N/A SIGNATURE: HUNG Juarez ASSESSMENT MANAGER CHECKED BY: DATE of SERVICE: 10/23/2013 TIME [...] of this encounter (statuses as of 04/07/2023) [facility]2015 History of Past illness Narrative* Problem [...] Cardiac Surgical prep: N/A SIGNATURE: HUNG Juarez ASSESSMENT MANAGER CHECKED BY: DATE of SERVICE: 10/23/2013 TIME [...] of this encounter (statuses as of 07/09/2023) [facility]2015 History of Past illness Narrative* Problem [...] Cardiac Surgical prep: N/A SIGNATURE: HUNG Juarez ASSESSMENT MANAGER CHECKED BY: DATE of SERVICE: 10/23/2013 TIME [...] of this encounter (statuses as of 08/02/2023) [facility]2015 History of Past illness Narrative* Problem [...] of this encounter (statuses as of 09/07/2023) [facility]2015 History of Past illness Narrative* Problem [...] Cardiac Surgical prep: N/A SIGNATURE: HUNG Juarez ASSESSMENT MANAGER CHECKED BY: DATE of SERVICE: 10/23/2013 TIME [...] of this encounter (statuses as of 03/13/2024) [facility]2015 History of Past illness Narrative* Problem [...] Cardiac Surgical prep: N/A SIGNATURE: HUNG Juarez ASSESSMENT MANAGER CHECKED BY: DATE of SERVICE: 10/23/2013 TIME [...] of this encounter (statuses as of 03/16/2024) [facility] Diagnosis URI, acute- Primary Acute upper respiratory infections of unspecified site [facility] Diagnosis Chest pain, unspecified type- Primary S/P MVR (mitral valve repair) Other postprocedural status Bradycardia following surgery Cardiac complications Postoperative atrial fibrillation (HCC) Cardiac complications Essential hypertension, benign Mitral valve disorder Mitral valve disorders [facility] noteNo assessment information availableWThe Surgical [facility] Work Phone: Evaluation note* Diagnosis Cough- Primary Globus sensation Gastrointestinal malfunction arising from mental factors [facility] Diagnosis Globus sensation Gastrointestinal malfunction arising from mental factors [facility] Diagnosis Acute pain of left shoulder- Primary Essential hypertension, benign Environmental and seasonal allergies Acute pain of right knee [facility]* Diagnosis Essential hypertension, benign- Primary Encounter for immunization Need for other specified prophylactic vaccination against single bacterial disease Postoperative atrial fibrillation (HCC) Cardiac complications Gastroesophageal reflux disease, unspecified whether esophagitis present [facility]* Diagnosis Nonexudative age-related macular degeneration, bilateral, early dry stage- Primary After cataract not obscuring vision, left Pseudophakia Lens replaced by other means [facility]* Diagnosis Nonexudative age-related macular degeneration, bilateral, early dry stage- Primary Pseudophakia Lens replaced by other means After cataract not obscuring vision, left Regular astigmatism, bilateral Presbyopia [facility]* Diagnosis Essential hypertension, benign- Primary PND (post-nasal drip) Postnasal drip Acute pain of right knee Vasomotor rhinitis Allergic rhinitis, cause unspecified Gastroesophageal reflux disease, unspecified whether esophagitis present S/P MVR (mitral valve repair) Other postprocedural status [facility] Diagnosis Vasomotor rhinitis- Primary Allergic rhinitis, cause unspecified Tinnitus, bilateral Unspecified tinnitus Gastroesophageal reflux disease, unspecified whether esophagitis present [facility] Diagnosis Urgency of urination- Primary Nocturia Benign prostatic hyperplasia with nocturia [facility] Diagnosis Urgency of urination- Primary Nocturia Benign prostatic hyperplasia with nocturia [facility] Diagnosis Essential hypertension, benign- Primary Encounter [...] Essential hypertension, benign [facility] Need for influenza vaccination- Primary Need for prophylactic vaccination and inoculation against influenza [facility] Diagnosis Acute pain of right knee [facility] Diagnosis Acute pain of right knee Acute pain of left shoulder [facility] Diagnosis Globus sensation Gastrointestinal malfunction arising from mental factors Cough [facility] Diagnosis Chest pain, unspecified type [facility] Diagnosis Dizziness- Primary Dizziness and giddiness Lightheadedness Dizziness and giddiness [facility] Diagnosis Dizziness- Primary Dizziness and giddiness Encounter for immunization Need for other specified prophylactic vaccination against single bacterial disease Essential hypertension, benign S/P MVR (mitral valve repair) Other postprocedural status Urgency of urination [facility] Diagnosis Essential hypertension, benign- Primary Postoperative atrial fibrillation (HCC) Cardiac complications Vasomotor rhinitis Allergic rhinitis, cause unspecified Tinnitus, unspecified laterality [facility] Diagnosis Foot pain, right- Primary Pain in limb Benign prostatic hyperplasia with nocturia Essential hypertension, benign Tinnitus of both ears Unspecified tinnitus [facility] Diagnosis Foot pain, right Pain in limb [facility] Diagnosis Benign prostatic hyperplasia with nocturia- Primary Urgency of urination [facility] Diagnosis Neuroma- Primary Other benign neoplasm of connective and other soft tissue of unspecified site Foot pain, right Pain in limb [facility] Diagnosis 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- Primary Tinnitus, bilateral Unspecified tinnitus PND (post-nasal drip) Postnasal drip [facility]* Diagnosis Vasomotor rhinitis- Primary Allergic rhinitis, cause unspecified Tinnitus, unspecified laterality Tinnitus, bilateral Unspecified tinnitus Sensorineural hearing loss, asymmetrical [facility] Diagnosis 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 [facility] Diagnosis S/P MVR (mitral valve repair)- Primary Other postprocedural status Aortic valve insufficiency, etiology of cardiac valve disease unspecified Tinnitus of right ear Unspecified tinnitus Thick nasal mucus Other diseases of nasal cavity and sinuses [facility] Diagnosis Benign prostatic hyperplasia with nocturia- Primary Urgency of urination [facility] Diagnosis Acute cough- Primary Influenza A Influenza with other respiratory manifestations [facility] Diagnosis OAB (overactive bladder)- Primary Hypertonicity of bladder Benign prostatic hyperplasia with nocturia Urgency of urination Nocturia [facility] Diagnosis Polycythemia- Primary Polycythemia vera [facility]* Diagnosis Sore throat- Primary Acute pharyngitis [facility]* Diagnosis Essential hypertension, benign- Primary History of atrial fibrillation Personal history of other diseases of circulatory system Benign prostatic hyperplasia with nocturia Memory loss Gastroesophageal reflux disease, unspecified whether esophagitis present Encounter for immunization Need for other specified prophylactic vaccination against single bacterial disease [facility] Diagnosis Urgency of urination- Primary Benign prostatic hyperplasia with nocturia Nocturia OAB (overactive bladder) Hypertonicity of bladder [facility]* Diagnosis OAB (overactive bladder)- Primary Hypertonicity of bladder [facility] Diagnosis Neuroma- Primary Other benign neoplasm of connective and other soft tissue of unspecified site Plantar fasciitis of left foot Plantar fascial fibromatosis [facility] Diagnosis Bilateral foot pain Pain in limb documented in this encounter [facility] note* Diagnosis OAB (overactive bladder)- Primary Hypertonicity of bladder BPH with obstruction/lower urinary tract symptoms Hypertrophy of prostate with urinary obstruction and other lower urinary tract symptoms (LUTS) documented in this encounter [facility] note* Diagnosis Essential hypertension, benign- Primary Chronic cough Cough Dysphagia, unspecified type Gastroesophageal reflux disease, unspecified whether esophagitis present documented in this encounter [facility] note* Diagnosis Chronic cough Cough documented in this encounter [facility] note* Diagnosis Chronic cough Cough documented in this encounter [facility] note* Diagnosis Chronic cough Cough documented in this encounter [facility] note* Diagnosis Neuroma Other benign neoplasm of connective and other soft tissue of unspecified site documented in this encounter [facility] for referral (narrative)* Outpatient Procedure (Routine) - Pending Review Specialty Diagnoses / Procedures Referred By Connie t Referred To [facility] [place] Diagnoses Chest pain, unspecified type 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 Procedures STRESS ECHO TREADMILL ECHO TTHRC R-T 2D W/WO M-MODE COMPLETE REST&ST Diego Huffman MD [address] [place] [address] [address] [address] [place] [address] Referral ID Status Reason Start Date Expiration Date Visits Requested Visits Authorized [id number] Pending Review Auto-Generat ed Referral 03/02/2022 03/02/2023 1 1 * Outpatient Procedure (Routine) - Closed Specialty Diagnoses / Procedures Referred By Contnilton t Referred To [facility] Diagnoses Chest pain, unspecified type Procedures ECG COMPLETE ECG ROUTINE ECG W/LEAST 12 LDS W/I&R Diego Huffman MD [address] [place] [address] [facility] [address] (Inspect Manager) [place] [address] Referral ID Status Reason Start Date Expiration Date V isits Requested Visits Authorized [id number] Closed Auto-Generate d Referral 03/02/2022 11/27/2022 1 1 [facility] for referral (narrative)* Diagnostic Procedure Only (Urgent) - Pending Review Specialty Diagnoses / Procedures Referred By Contac t Referred To Contact US IMAGING Diagnoses Globus sensation Procedures US THYROID/PARATHYROID US SOFT TISSUE HEAD & NECK REAL TIME IMGE DOCGracie Pickering APRN.ASSESSMENT MANAGER [address] [place] [address] Us Imaging Referral ID Status Reason Start Date Expiration Date Visits Requested Visits Authorized [id number] Pending Review Auto-Generat ed Referral 04/16/2022 05/16/2023 1 1 * Diagnostic Procedure Only (Urgent) - Closed Specialty Diagnoses / Procedures Referred By Contac t Referred To Contact XR IMAGING Diagnoses Globus sensation Procedures XR NECK SOFT TISSUE 2V AP/LAT RADIOLOGIC EXAMINATION NECK SOFT TISSUE RADIOLOGIC EXAM CHEST 2 VIEWS Gracie Aj APRN.ASSESSMENT MANAGER [address] [place] [address] Xr Imaging Referral ID Status Reason Start Date Expiration Date V isits Requested Visits Authorized [id number] Closed Auto-Generate d Referral 04/16/2022 11/27/2022 1 1 [facility] for referral (narrative)* Diagnostic Procedure Only (Urgent) - Closed Specialty Diagnoses / Procedures Referred By Contac t Referred To Contact US IMAGING Diagnoses Globus sensation Procedures US THYROID/PARATHYROID US SOFT TISSUE HEAD & NECK REAL TIME IMGE DOCGracie Pickering APRN.ASSESSMENT MANAGER [address] [place] [address] [facility] Imaging Referral ID Status Reason Start Date Expiration Date V isits Requested Visits Authorized [id number] Closed Auto-Generate d Referral 04/19/2022 11/27/2022 1 1 [facility] for referral (narrative)* Diagnostic Procedure Only (Routine) - Closed Specialty Diagnoses / Procedures Referred By Contac t Referred To Contact XR IMAGING Diagnoses Acute pain of left shoulder Procedures XR SHOULDER GENERAL 3V OR MORE AP/TRUE AP/OTHER LEFT RADEX SHOULDER COMPLETE MINIMUM 2 VIEWS Ana Resendez APRN.ASSESSMENT MANAGER [address] [place] [address] Xr Imaging Referral ID Status Reason Start Date Expiration Date V isits Requested Visits Authorized [id number] Closed Auto-Generate d Referral 07/07/2022 11/27/2022 1 1 * Diagnostic Procedure Only (Routine) - Closed Specialty Diagnoses / Procedures Referred By Contac t Referred To Contact XR IMAGING Diagnoses Acute pain of right knee Procedures XR KNEE GENERAL 4V AP BOTH/PA BOTH/LAT/MERC RIGHT RADIOLOGIC EXAM KNEE COMPLETE 4/MORE VIEWS Ana Resendez APRN.ASSESSMENT MANAGER [address] [id number] Xr Imaging Referral ID Status Reason Start Date Expiration Date V isits Requested Visits Authorized [id number] Closed Auto-Generate d Referral 07/07/2022 11/27/2022 1 1 [facility] for referral (narrative)* Diagnostic Procedure Only (Routine) - Closed Specialty Diagnoses / Procedures Referred By Contac t Referred To Contact XR IMAGING Diagnoses Acute pain of right knee Procedures XR KNEE GENERAL 4V AP BOTH/PA BOTH/LAT/MERC RIGHT RADIOLOGIC EXAM KNEE COMPLETE 4/MORE VIEWS Diego Huffman MD [address] [place] [address] [place] [address] Referral ID Status Reason Start Date Expiration Date V isits Requested Visits Authorized [id number] Closed Auto-Generate d Referral 03/02/2023 11/27/2023 1 1 [facility] for referral (narrative)* Diagnostic Procedure Only (Routine) - Closed Specialty Diagnoses / Procedures Referred By Contac t Referred To Contact XR IMAGING Diagnoses Acute pain of left shoulder Procedures XR SHOULDER GENERAL 3V OR MORE AP/TRUE AP/OTHER LEFT RADEX SHOULDER COMPLETE MINIMUM 2 VIEWS Ana Resendez APRN.ASSESSMENT MANAGER [address] [place] [address] [place] [address] Referral ID Status Reason Start Date Expiration Date V isits Requested Visits Authorized [id number] Closed Auto-Generate d Referral 07/07/2022 11/27/2022 1 1 * Diagnostic Procedure Only (Routine) - Closed Specialty Diagnoses / Procedures Referred By Contac t Referred To Contact XR IMAGING Diagnoses Acute pain of right knee Procedures XR KNEE GENERAL 4V AP BOTH/PA BOTH/LAT/MERC RIGHT RADIOLOGIC EXAM KNEE COMPLETE 4/MORE VIEWS Ana Resendez APRN.ASSESSMENT MANAGER [address] [place] [address] [place] [address] Referral ID Status Reason Start Date Expiration Date V isits Requested Visits Authorized [id number] Closed Auto-Generate d Referral 07/07/2022 11/27/2022 1 1 [facility] for referral (narrative)* Diagnostic Procedure Only (Urgent) - Closed Specialty Diagnoses / Procedures Referred By Contac t Referred To Contact XR IMAGING Diagnoses Globus sensation Procedures XR NECK SOFT TISSUE 2V AP/LAT RADIOLOGIC EXAMINATION NECK SOFT TISSUE RADIOLOGIC EXAM CHEST 2 VIEWS Gracie Aj APRN.ASSESSMENT MANAGER [address] [place] [address] [place] [address] Referral ID Status Reason Start Date Expiration Date V isits Requested Visits Authorized [id number] Closed Auto-Generate d Referral 04/16/2022 11/27/2022 1 1 [facility] for visit Narrative* Diagnostic Procedure Only (Urgent) - Closed Specialty Diagnoses / Procedures Referred By Contac t Referred To Contact US IMAGING Diagnoses Globus sensation Procedures US THYROID/PARATHYROID US SOFT TISSUE HEAD & NECK REAL TIME IMGE Gracie Burton, SHARIFA.ASSESSMENT MANAGER [address] [place] [address] [facility] Imaging Referral ID Status Reason Start Date Expiration Date V isits Requested Visits Authorized [id number] Closed Auto-Generate d Referral 04/19/2022 11/27/2022 1 1 [facility] for visit Narrative* Diagnostic Procedure Only (Routine) - Closed Specialty Diagnoses / Procedures Referred By Contac t Referred To Contact XR IMAGING Diagnoses Acute pain of right knee Procedures XR KNEE GENERAL 4V AP BOTH/PA BOTH/LAT/MERC RIGHT RADIOLOGIC EXAM KNEE COMPLETE 4/MORE VIEWS Diego Huffman MD [address] [place] [id number] [place] [address] Referral ID Status Reason Start Date Expiration Date V isits Requested Visits Authorized [id number] Closed Auto-Generate d Referral 03/02/2023 11/27/2023 1 1 [facility] for visit Narrative* Diagnostic Procedure Only (Routine) - Closed Specialty Diagnoses / Procedures Referred By Contac t Referred To Contact XR IMAGING Diagnoses Acute pain of left shoulder Procedures XR SHOULDER GENERAL 3V OR MORE AP/TRUE AP/OTHER LEFT RADEX SHOULDER COMPLETE MINIMUM 2 VIEWS Ana Resendez APRN.ASSESSMENT MANAGER [address] [place] [phone] [place] [address] Referral ID Status Reason Start Date Expiration Date V isits Requested Visits Authorized [id number] Closed Auto-Generate d Referral 07/07/2022 11/27/2022 1 1 [facility] for visit Narrative* Diagnostic Procedure Only (Urgent) - Closed Specialty Diagnoses / Procedures Referred By Contac t Referred To Contact XR IMAGING Diagnoses Globus sensation Procedures XR NECK SOFT TISSUE 2V AP/LAT RADIOLOGIC EXAMINATION NECK SOFT TISSUE RADIOLOGIC EXAM CHEST 2 VIEWS Gracie Aj, SHARIFA.ASSESSMENT MANAGER [address] [place] [address] [place] [address] Referral ID Status Reason Start Date Expiration Date V isits Requested Visits Authorized [id number] Closed Auto-Generate d Referral 04/16/2022 11/27/2022 1 1 [facility] for visit Narrative* Diagnostic Procedure Only (Routine) - Closed Specialty Diagnoses / Procedures Referred By Contac t Referred To Contact XR IMAGING Diagnoses Foot pain, right Procedures XR FOOT GENERAL 3V AP/LAT/OBL RIGHT RADEX FOOT COMPLETE MINIMUM 3 VIEWS Diego Huffman MD [address] [place] [address] [place] [address] Referral ID Status Reason Start Date Expiration Date V isits Requested Visits Authorized [id number] Closed Auto-Generate d Referral 09/26/2024 10/26/2025 1 1 [facility] for visit Narrative* Diagnostic Procedure Only (Routine) - Closed Specialty Diagnoses / Procedures Referred By Contac t Referred To Contact XR IMAGING Diagnoses Bilateral foot pain Procedures XR FOOT GENERAL 3V AP/LAT/OBL BILATERAL RADEX FOOT COMPLETE MINIMUM 3 VIEWS Rosa Elena Cohen [address] [place] [address] Phone: tel: fax: [place] [address] Referral ID Status Reason Start Date Expiration Date V isits Requested Visits Authorized [id number] Closed Auto-Generat ed Referral Patient Cleared - Admin/Chairm an/Director advise to proceed or did not respond 04/10/2025 11/27/2025 1 1 [facility] for visit Narrative* Diagnostic Procedure Only (Routine) - Closed Specialty Diagnoses / Procedures Referred By Contac t Referred To Contact US IMAGING Diagnoses Neuroma Procedures US FOOT RIGHT US COMPL JOINT R-T W/IMAGE DOCUMENTATION US LMTD JOINT/OTH NONVASC XTR STRUX R-T W/IMG Rosa Elena Cohen [address] [place] [address] Phone: tel: fax: [place] [address] Referral ID Status Reason Start Date Expiration Date V isits Requested Visits Authorized [id number] Closed Auto-Generate d Referral 05/10/2025 11/27/2025 1 1 [facility] Advance Directives No Advanced Directives Records FoundDocuments on File Type Date 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 Advance Directive(s) 08/25/2020 12:19 PM Advance Directive(s) 02/13/2020 9:50 AM Advance Directive(s) 02/05/2020 8:17 AM Documents on File Type Date 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 Advance Directive(s) 03/02/2022 5:54 PM Advance Directive(s) 08/25/2020 12:19 PM Advance Directive(s) 02/13/2020 9:50 AM Advance Directive(s) 02/05/2020 8:17 AM Documents on File Type Date 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 Advance Directive(s) 03/02/2022 5:54 PM [...] Vasomotor rhinitis Procedures CONSULT TO ENT OFFICE/OUTPATIENT [facility] [place] 60-[place] [address] [place] [id number] Referral ID Status Reason Start Date Expiration Date Visits Requested Visits Authorized [id number] Pending Review PCP Requested Referral 03/02/2023 03/01/2024 1 1 Specialty Diagnoses / Procedures Referred By Contac t Referred To Contact XR IMAGING Diagnoses Acute pain of right knee Procedures XR KNEE GENERAL 4V AP BOTH/PA BOTH/LAT/MERC RIGHT RADIOLOGIC EXAM KNEE COMPLETE 4/MORE VIEWS Diego Huffman MD [address] [place] [address] Xr Imaging Referral ID Status Reason Start Date Expiration Date V isits Requested Visits Authorized [id number] Closed Auto-Generate d Referral 03/02/2023 11/27/2023 1 1 Specialty Diagnoses / Procedures Referred By Contac t Referred To Contact Diagnoses Tinnitus, bilateral Procedures HEARING TEST/AUDIOGRAM COMPRE AUDIOMETRY THRESHOLD EVAL Smith Alarcon MD [address] [place] [address] [facility] [address] [place] [address] Referral ID Status Reason Start Date Expiration Date Visits Requested Visits Authorized [id number] Pending Review Auto-Generat ed Referral 04/06/2023 07/05/2023 1 1 Specialty Diagnoses / Procedures Referred By Contac t Referred To Contact Urology Diagnoses Urgency of urination Nocturia Benign prostatic hyperplasia with nocturia Procedures CONSULT TO UROLOGY OFFICE/OUTPATIENT [facility] [place] 60-74 MINUTES Diego Huffman MD [address] [place] [address] Referral ID Status Reason Start Date Expiration Date Visits Requested Visits Authorized [id number] Pending Review PCP Requested Referral 07/08/2023 07/07/2024 1 1 Specialty Diagnoses / Procedures Referred By Contac t Referred To Contact Cardiology Diagnoses S/P MVR (mitral valve repair) Procedures CONSULT TO CARDIOLOGY OFFICE/OUTPATIENT [facility] [place] 60-74 MINUTES Diego Huffman MD [address] [place] [address] Referral ID Status Reason Start Date Expiration Date Visits Requested Visits Authorized [id number] Pending Review PCP Requested Referral 09/06/2024 1 1 Specialty Diagnoses / Procedures Referred By Contac t Referred To Contact Urology Diagnoses Benign prostatic hyperplasia with nocturia Urgency of urination Procedures CONSULT TO UROLOGY OFFICE/OUTPATIENT [facility] [place] 60 MINUTES Diego Huffman MD [address] [place] [address] Referral ID Status Reason Start Date Expiration Date Visits Requested Visits Authorized [id number] Authorized PCP Requested Referral 03/12/2024 03/12/2025 1 1 Specialty Diagnoses / Procedures Referred By Contac t Referred To Contact [facility] Diagnoses Benign prostatic hyperplasia with nocturia Urgency of urination Procedures CONSULT TO PHYSICAL THERAPY PHYSICAL THERAPY EVALUATION HIGH COMPLEX 45 MINS Cornelius Dasilva APRN.ASSESSMENT MANAGER, [place] [address] [place] [address] [facility] [address] [place] [address] Referral ID Status Reason Start Date Expiration Date Visits Requested Visits Authorized [id number] Pending Review Auto-Generat ed Referral 04/02/2024 04/02/2025 1 1 Specialty Diagnoses / Procedures Referred By Contac t Referred To Contact Urology Diagnoses Urgency of urination Procedures CONSULT TO UROLOGY OFFICE/OUTPATIENT [facility] [place] 60 MINUTES Ana Resendez APRN.ASSESSMENT MANAGER [address] [place] [address] Referral ID Status Reason Start Date Expiration Date Visits Requested Visits Authorized [id number] Authorized PCP Requested Referral 08/29/2024 08/29/2025 1 1 Specialty Diagnoses / Procedures Referred By Contac t Referred To Contact Ent - Otolaryngology Diagnoses Vasomotor rhinitis Tinnitus, unspecified laterality Procedures CONSULT TO ENT OFFICE/OUTPATIENT [facility] MDM 60 MINUTES Diego Huffman MD [address] [place] [address] Referral ID Status Reason Start Date Expiration Date Visits Requested Visits Authorized [id number] Authorized PCP Requested Referral 4 09/14/2025 1 1 Specialty Diagnoses / Procedures Referred By Contac t Referred To Contact Podiatry Diagnoses Foot pain, right Procedures CONSULT TO PODIATRY OFFICE/OUTPATIENT [facility] MDM 60 MINUTES Diego Huffman MD [address] [place] [address] Referral ID Status Reason Start Date Expiration Date Visits Requested Visits Authorized [id number] Authorized PCP Requested Referral 4 09/26/2025 1 1 Specialty Diagnoses / Procedures Referred By Contac t Referred To Contact XR IMAGING Diagnoses Foot pain, right Procedures XR FOOT GENERAL 3V AP/LAT/OBL RIGHT RADEX FOOT COMPLETE MINIMUM 3 VIEWS Diego Huffman MD [address] [place] [address] Xr Imaging [facility] Referral ID Status Reason Start Date Expiration Date V isits Requested Visits Authorized [id number] Closed Auto-Generate d Referral 09/26/2024 10/26/2025 1 1 Specialty Diagnoses / Procedures Referred By Contac t Referred To Contact MR IMAGING Diagnoses 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 Procedures MRI BRAIN WO/W IVCON MRI BRAIN BRAIN STEM W/O W/CONTRAST MATERIAL Rosa Elena Ramon MD [address] [address] [place] [address] Referral ID Status Reason Start Date Expiration Date Visits Requested Visits Authorized [id number] Pending Review Auto-Generat ed Referral 12/10/2024 01/09/2026 1 1 Specialty Diagnoses / Procedures Referred By Contac t Referred To Contact Diagnoses Tinnitus, unspecified laterality Procedures HEARING TEST/AUDIOGRAM COMPRE AUDIOMETRY THRESHOLD EVAL Ani Silverman, AUD [address] [place] [address] [facility] [address] [place] [address] Referral ID Status Reason Start Date Expiration Date Visits Requested Visits Authorized [id number] New Request Auto-Generat ed Referral 12/10/2024 12/11/2025 1 1 Referral ID Status Reason Start Date Expiration Date Visits Re quested Visits Authorized [id number] Closed 12/12/2024 11/27/2025 1 1 Specialty Diagnoses / Procedures Referred By Contac t Referred To Contact Ent - Otolaryngology Diagnoses Tinnitus of right ear Thick nasal mucus Procedures CONSULT TO ENT CONSULT TO ENT OFFICE/OUTPATIENT [facility] 60 MINUTES Lynette Patel MD [address] [place] [address] Referral ID Status Reason Start Date Expiration Date Visits Requested Visits Authorized [id number] Authorized PCP Requested Referral 12/27/2024 12/27/2025 1 1 Specialty Diagnoses / Procedures Referred By Contac t Referred To Contact [facility] Diagnoses S/P MVR (mitral valve repair) Procedures ECHO ECHO TTHRC R-T 2D W/WOM-MODE COMPL SPEC&COLR D Lynette Patel MD [address] [place] [address] [facility] [address] [place] [id number] Referral ID Status Reason Start Date Expiration Date Visits Requested Visits Authorized [id number] Pending Review Auto-Generat ed Referral 12/27/2024 12/27/2025 1 1 Additional Source Comments Source Comments (unrecognize d section and content) In the event this informatio n is protected by the Federal Confidentiality of Alcohol and Drug Abuse Patient Records regulations: The Federal rules restrict any use of the information to criminally investigate or prosecute any alcohol or drug abuse patient.[facility] the event this information is protected by the Federal Confidentiality of Alcohol and Drug Abuse Patient Records regulations: The Federal rules restrict any use of the information to criminally investigate or prosecute any alcohol or drug abuse patient.[facility] HospitalIn the event this information is protected by the Federal Confidentiality of Alcohol and Drug Abuse Patient Records regulations: The Federal rules restrict any use of the information to criminally investigate or prosecute any alcohol or drug abuse patient.[facility] HospitalIn the event this information is protected by the Federal Confidentiality of Alcohol and Drug Abuse Patient Records regulations: The Federal rules restrict any use of the information to criminally investigate or prosecute any alcohol or drug abuse patient.[facility] HospitalIn the event this information is protected by the Federal Confidentiality of Alcohol and Drug Abuse Patient Records regulations: The Federal rules restrict any use of the information to criminally investigate or prosecute any alcohol or drug abuse patient.[facility] HospitalIn the event this information is protected by the Federal Confidentiality of Alcohol and Drug Abuse Patient Records regulations: The Federal rules restrict any use of the information to criminally investigate or prosecute any alcohol or drug abuse patient.[facility] HospitalIn the event this information is protected by the Federal Confidentiality of Alcohol and Drug Abuse Patient Records regulations: The Federal rules restrict any use of the information to criminally investigate or prosecute any alcohol or drug abuse patient.[facility] HospitalIn the event this information is protected by the Federal Confidentiality of Alcohol and Drug Abuse Patient Records regulations: The Federal rules restrict any use of the information to criminally investigate or prosecute any alcohol or drug abuse patient.[facility] HospitalIn the event this information is protected by the Federal Confidentiality of Alcohol and Drug Abuse Patient Records regulations: The Federal rules restrict any use of the information to criminally investigate or prosecute any alcohol or drug abuse patient.[facility] HospitalIn the event this information is protected by the Federal Confidentiality of Alcohol and Drug Abuse Patient Records regulations: The Federal rules restrict any use of the information to criminally investigate or prosecute any alcohol or drug abuse patient.[facility] HospitalIn the event this information is protected by the Federal Confidentiality of Alcohol and Drug Abuse Patient Records regulations: The Federal rules restrict any use of the information to criminally investigate or prosecute any alcohol or drug abuse patient.[facility] HospitalIn the event this information is protected by the Federal Confidentiality of Alcohol and Drug Abuse Patient Records regulations: The Federal rules restrict any use of the information to criminally investigate or prosecute any alcohol or drug abuse patient.[facility] HospitalIn the event this information is protected by the Federal Confidentiality of Alcohol and Drug Abuse Patient Records regulations: The Federal rules restrict any use of the information to criminally investigate or prosecute any alcohol or drug abuse patient.[facility] HospitalIn the event this information is protected by the Federal Confidentiality of Alcohol and Drug Abuse Patient Records regulations: The Federal rules restrict any use of the information to criminally investigate or prosecute any alcohol or drug abuse patient.[facility] HospitalIn the event this information is protected by the Federal Confidentiality of Alcohol and Drug Abuse Patient Records regulations: The Federal rules restrict any use of the information to criminally investigate or prosecute any alcohol or drug abuse patient.[facility] HospitalIn the event this information is protected by the Federal Confidentiality of Alcohol and Drug Abuse Patient Records regulations: The Federal rules restrict any use of the information to criminally investigate or prosecute any alcohol or drug abuse patient.[facility] HospitalIn the event this information is protected by the Federal Confidentiality of Alcohol and Drug Abuse Patient Records regulations: The Federal rules restrict any use of the information to criminally investigate or prosecute any alcohol or drug abuse patient.[facility] HospitalIn the event this information is protected by the Federal Confidentiality of Alcohol and Drug Abuse Patient Records regulations: The Federal rules restrict any use of the information to criminally investigate or prosecute any alcohol or drug abuse patient.[facility] HospitalIn the event this information is protected by the Federal Confidentiality of Alcohol and Drug Abuse Patient Records regulations: The Federal rules restrict any use of the information to criminally investigate or prosecute any alcohol or drug abuse patient.[facility] HospitalIn the event this information is protected by the Federal Confidentiality of Alcohol and Drug Abuse Patient Records regulations: The Federal rules restrict any use of the information to criminally investigate or prosecute any alcohol or drug abuse patient.[facility] HospitalIn the event this information is protected by the Federal Confidentiality of Alcohol and Drug Abuse Patient Records regulations: The Federal rules restrict any use of the information to criminally investigate or prosecute any alcohol or drug abuse patient.[facility] HospitalIn the event this information is protected by the Federal Confidentiality of Alcohol and Drug Abuse Patient Records regulations: The Federal rules restrict any use of the information to criminally investigate or prosecute any alcohol or drug abuse patient.[facility] HospitalIn the event this information is protected by the Federal Confidentiality of Alcohol and Drug Abuse Patient Records regulations: The Federal rules restrict any use of the information to criminally investigate or prosecute any alcohol or drug abuse patient.[facility] HospitalIn the event this information is protected by the Federal Confidentiality of Alcohol and Drug Abuse Patient Records regulations: The Federal rules restrict any use of the information to criminally investigate or prosecute any alcohol or drug abuse patient.[facility] HospitalIn the event this information is protected by the Federal Confidentiality of Alcohol and Drug Abuse Patient Records regulations: The Federal rules restrict any use of the information to criminally investigate or prosecute any alcohol or drug abuse patient.[facility] HospitalIn the event this information is protected by the Federal Confidentiality of Alcohol and Drug Abuse Patient Records regulations: The Federal rules restrict any use of the information to criminally investigate or prosecute any alcohol or drug abuse patient.[facility] HospitalIn the event this information is protected by the Federal Confidentiality of Alcohol and Drug Abuse Patient Records regulations: The Federal rules restrict any use of the information to criminally investigate or prosecute any alcohol or drug abuse patient.[facility] HospitalIn the event this information is protected by the Federal Confidentiality of Alcohol and Drug Abuse Patient Records regulations: The Federal rules restrict any use of the information to criminally investigate or prosecute any alcohol or drug abuse patient.[facility] HospitalIn the event this information is protected by the Federal Confidentiality of Alcohol and Drug Abuse Patient Records regulations: The Federal rules restrict any use of the information to criminally investigate or prosecute any alcohol or drug abuse patient.[facility] HospitalIn the event this information is protected by the Federal Confidentiality of Alcohol and Drug Abuse Patient Records regulations: The Federal rules restrict any use of the information to criminally investigate or prosecute any alcohol or drug abuse patient.[facility] HospitalIn the event this information is protected by the Federal Confidentiality of Alcohol and Drug Abuse Patient Records regulations: The Federal rules restrict any use of the information to criminally investigate or prosecute any alcohol or drug abuse patient.[facility] HospitalIn the event this information is protected by the Federal Confidentiality of Alcohol and Drug Abuse Patient Records regulations: The Federal rules restrict any use of the information to criminally investigate or prosecute any alcohol or drug abuse patient.[facility] HospitalIn the event this information is protected by the Federal Confidentiality of Alcohol and Drug Abuse Patient Records regulations: The Federal rules restrict any use of the information to criminally investigate or prosecute any alcohol or drug abuse patient.[facility] HospitalIn the event this information is protected by the Federal Confidentiality of Alcohol and Drug Abuse Patient Records regulations: The Federal rules restrict any use of the information to criminally investigate or prosecute any alcohol or drug abuse patient.[facility] HospitalIn the event this information is protected by the Federal Confidentiality of Alcohol and Drug Abuse Patient Records regulations: The Federal rules restrict any use of the information to criminally investigate or prosecute any alcohol or drug abuse patient.[facility] HospitalIn the event this information is protected by the Federal Confidentiality of Alcohol and Drug Abuse Patient Records regulations: The Federal rules restrict any use of the information to criminally investigate or prosecute any alcohol or drug abuse patient.[facility] HospitalIn the event this information is protected by the Federal Confidentiality of Alcohol and Drug Abuse Patient Records regulations: The Federal rules restrict any use of the information to criminally investigate or prosecute any alcohol or drug abuse patient.[facility] HospitalIn the event this information is protected by the Federal Confidentiality of Alcohol and Drug Abuse Patient Records regulations: The Federal rules restrict any use of the information to criminally investigate or prosecute any alcohol or drug abuse patient.[facility] HospitalIn the event this information is protected by the Federal Confidentiality of Alcohol and Drug Abuse Patient Records regulations: The Federal rules restrict any use of the information to criminally investigate or prosecute any alcohol or drug abuse patient.[facility] HospitalIn the event this information is protected by the Federal Confidentiality of Alcohol and Drug Abuse Patient Records regulations: The Federal rules restrict any use of the information to criminally investigate or prosecute any alcohol or drug abuse patient.[facility] HospitalIn the event this information is protected by the Federal Confidentiality of Alcohol and Drug Abuse Patient Records regulations: The Federal rules restrict any use of the information to criminally investigate or prosecute any alcohol or drug abuse patient.[facility] HospitalIn the event this information is protected by the Federal Confidentiality of Alcohol and Drug Abuse Patient Records regulations: The Federal rules restrict any use of the information to criminally investigate or prosecute any alcohol or drug abuse patient.[facility] HospitalIn the event this information is protected by the Federal Confidentiality of Alcohol and Drug Abuse Patient Records regulations: The Federal rules restrict any use of the information to criminally investigate or prosecute any alcohol or drug abuse patient.[facility] HospitalIn the event this information is protected by the Federal Confidentiality of Alcohol and Drug Abuse Patient Records regulations: The Federal rules restrict any use of the information to criminally investigate or prosecute any alcohol or drug abuse patient.[facility] HospitalIn the event this information is protected by the Federal Confidentiality of Alcohol and Drug Abuse Patient Records regulations: The Federal rules restrict any use of the information to criminally investigate or prosecute any alcohol or drug abuse patient.[facility] HospitalIn the event this information is protected by the Federal Confidentiality of Alcohol and Drug Abuse Patient Records regulations: The Federal rules restrict any use of the information to criminally investigate or prosecute any alcohol or drug abuse patient.[facility] HospitalIn the event this information is protected by the Federal Confidentiality of Alcohol and Drug Abuse Patient Records regulations: The Federal rules restrict any use of the information to criminally investigate or prosecute any alcohol or drug abuse patient.[facility] HospitalIn the event this information is protected by the Federal Confidentiality of Alcohol and Drug Abuse Patient Records regulations: The Federal rules restrict any use of the information to criminally investigate or prosecute any alcohol or drug abuse patient.[facility] HospitalIn the event this information is protected by the Federal Confidentiality of Alcohol and Drug Abuse Patient Records regulations: The Federal rules restrict any use of the information to criminally investigate or prosecute any alcohol or drug abuse patient.[facility] HospitalIn the event this information is protected by the Federal Confidentiality of Alcohol and Drug Abuse Patient Records regulations: The Federal rules restrict any use of the information to criminally investigate or prosecute any alcohol or drug abuse patient.[facility] HospitalIn the event this information is protected by the Federal Confidentiality of Alcohol and Drug Abuse Patient Records regulations: The Federal rules restrict any use of the information to criminally investigate or prosecute any alcohol or drug abuse patient.[facility] HospitalIn the event this information is protected by the Federal Confidentiality of Alcohol and Drug Abuse Patient Records regulations: The Federal rules restrict any use of the information to criminally investigate or prosecute any alcohol or drug abuse patient.[facility] HospitalIn the event this information is protected by the Federal Confidentiality of Alcohol and Drug Abuse Patient Records regulations: The Federal rules restrict any use of the information to criminally investigate or prosecute any alcohol or drug abuse patient.[facility] HospitalIn the event this information is protected by the Federal Confidentiality of Alcohol and Drug Abuse Patient Records regulations: The Federal rules restrict any use of the information to criminally investigate or prosecute any alcohol or drug abuse patient.[facility] HospitalIn the event this information is protected by the Federal Confidentiality of Alcohol and Drug Abuse Patient Records regulations: The Federal rules restrict any use of the information to criminally investigate or prosecute any alcohol or drug abuse patient.[facility] HospitalIn the event this information is protected by the Federal Confidentiality of Alcohol and Drug Abuse Patient Records regulations: The Federal rules restrict any use of the information to criminally investigate or prosecute any alcohol or drug abuse patient.[facility] HospitalIn the event this information is protected by the Federal Confidentiality of Alcohol and Drug Abuse Patient Records regulations: The Federal rules restrict any use of the information to criminally investigate or prosecute any alcohol or drug abuse patient.[facility] HospitalIn the event this information is protected by the Federal Confidentiality of Alcohol and Drug Abuse Patient Records regulations: The Federal rules restrict any use of the information to criminally investigate or prosecute any alcohol or drug abuse patient.[facility] HospitalIn the event this information is protected by the Federal Confidentiality of Alcohol and Drug Abuse Patient Records regulations: The Federal rules restrict any use of the information to criminally investigate or prosecute any alcohol or drug abuse patient.[facility] HospitalIn the event this information is protected by the Federal Confidentiality of Alcohol and Drug Abuse Patient Records regulations: The Federal rules restrict any use of the information to criminally investigate or prosecute any alcohol or drug abuse patient.[facility] HospitalIn the event this information is protected by the Federal Confidentiality of Alcohol and Drug Abuse Patient Records regulations: The Federal rules restrict any use of the information to criminally investigate or prosecute any alcohol or drug abuse patient.[facility] HospitalIn the event this information is protected by the Federal Confidentiality of Alcohol and Drug Abuse Patient Records regulations: The Federal rules restrict any use of the information to criminally investigate or prosecute any alcohol or drug abuse patient.[facility] HospitalIn the event this information is protected by the Federal Confidentiality of Alcohol and Drug Abuse Patient Records regulations: The Federal rules restrict any use of the information to criminally investigate or prosecute any alcohol or drug abuse patient.[facility] Reason for Visit (unrecogniz ed section [...] Acute Visit right knee pain- 1 w kiana ago Reason Comments 6 Month Exam Reason Comments Nonexudative Macular Degeneration Follow Up Bilateral, 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 Punctate Keratitis Bilateral Pseudophakia Bilateral Reason Comments Macular Degeneration Evaluation Reason Comments 6 Month Exam Reason Comments Consult post-nasal drip/ Vas omotor rhinitis/ tinnitus- sx for years Specialty Diagnoses / [facility] Ent - Otolaryngology Diagnoses PND (post-nasal drip) Vasomotor rhinitis Procedures CONSULT TO ENT OFFICE/OUTPATIENT [facility] MDM 60-74 MINUTES Diego Huffman MD [address] [place] [address] Referral ID Status Reason Start Date Expiration Date Visits Requested Visits Authorized [id number] Pending Review PCP Requested Referral 03/02/2023 03/01/2024 1 1 Reason Comments Urinary Frequency Reason Comments Consult Urinary Frequency Benign Prostatic Hypertrophy Specialty Diagnoses / Procedures [facility] Referred To Contact Urology Diagnoses Urgency of urination Nocturia Benign prostatic hyperplasia with nocturia Procedures CONSULT TO UROLOGY OFFICE/OUTPATIENT [facility] 60-74 MINUTES Diego Huffman MD [address] [place] [address] Referral ID Status Reason Start Date Expiration Date Visits Requested Visits Authorized [id number] Pending Review PCP Requested Referral 07/08/2023 07/07/2024 1 1 Reason Comments 6 Month Exam Reason Comments Established Patient Benign Prostatic Hypertrophy Specialty Diagnoses / Procedures [facility] Referred To Contact Urology Diagnoses Benign prostatic hyperplasia with nocturia Urgency of urination Procedures CONSULT TO UROLOGY OFFICE/OUTPATIENT [facility] 60 MINUTES Diego Huffman MD [address] [place] [address] Referral ID Status Reason Start Date Expiration Date V isits Requested Visits Authorized [id number] Closed PCP Requested Referral 03/12/2024 03/12/2025 1 [...] of urination Procedures CONSULT TO UROLOGY OFFICE/OUTPATIENT [facility] 60 MINUTES Ana Resendez APRN.CNP [address] [place] [id number] Referral ID Status Reason Start Date Expiration Date V isits Requested Visits Authorized [id number] Closed PCP Requested Referral 08/29/2024 08/29/2025 1 1 Reason Comments New Pain Specialty Diagnoses / Procedures Referred By [facility] Referred To Contact Podiatry Diagnoses Foot pain, right Procedures CONSULT TO PODIATRY OFFICE/OUTPATIENT [facility] 60 MINUTES Diego Huffman MD [address] [place] [address] Referral ID Status Reason Start Date Expiration Date V isits Requested Visits Authorized [id number] Closed PCP Requested Referral 09/26/2024 09/26/2025 1 1 Reason Comments had audio today Ringing In Ear(s) For years right ear is louder than the left ear. 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 Procedures MRI BRAIN WO/W IVCON MRI BRAIN BRAIN STEM W/O W/CONTRAST MATERIAL Rosa Elena Ramon MD [address] [address] Mr Imaging [place] [address] Referral ID Status Reason Start Date Expiration Date Visits Re quested Visits Authorized [id number] Closed 12/12/2024 11/27/2025 1 1 Reason Comments [...] RSPSE SPMTRY PRE&POST-BRNCDILAT ADMN Diego Huffman MD [address] [place] [address] Phone: tel: fax: [facility] [place] [address] Referral ID Status Reason Start Date Expiration Date V isits Requested Visits Authorized [id number] Closed Auto-Generate d Referral 04/28/2025 11/27/2025 1 1 Specialty Diagnoses / Procedures Referred By Connie t Referred To Contact [facility] Diagnoses Chronic cough Procedures LUNG VOLUMES PLETHYSMOGRAPHY LUNG VOLUMES W/WO AIRWAY RESIST Diego Huffman MD [address] [place] [address] Phone: tel: fax: [facility] [address] [place] [address] Referral ID Status Reason Start Date Expiration Date V isits Requested Visits Authorized [id number] Closed Auto-Generate d Referral 04/28/2025 11/27/2025 1 1 Care Teams (unrecognized sec tion and content) Rubber Tester Relationship Specialty Start Date End Date Diego Huffman MD [address] [place], [place] [id number] PCP - General Family Practice 09/01/21 Luis Cordero [facility] [place] [address] Consulting Cardiology 12/04/21 Rubber Tester Relationship Specialty Start Date End Date Diego Huffman MD [address] [place], [place] [address] PCP - General Family Practice 09/01/21 Luis Cordero [facility] [place] [address] Consulting Cardiology 12/04/21 Rubber Tester Relationship Specialty Start Date End Date Diego Huffman MD [address] [place], [place] [address] PCP - General Family Practice 09/01/21 Luis Cordero [facility] [place] [address] Consulting Cardiology 12/04/21 Rubber Tester Relationship Specialty Start Date End Date Diego Huffman MD [address] [place], [place] [address] PCP - General Family Practice 09/01/21 Luis Cordero DO [facility] [place] [address] Consulting Cardiology 12/04/21 Rubber Tester Relationship Specialty Start Date End Date Diego Hufmfan MD [address] [place] [address] PCP - General Family Practice 09/01/21 Luis Cordero DO [facility] [place] [address] Consulting Cardiology 12/04/21 Rubber Tester Relationship Specialty Start Date End Date Diego Huffman MD [address] [place] [address] PCP - General Family Practice 09/01/21 Luis Cordero DO [facility] [place] [address] Consulting Cardiology 12/04/21 Rubber Tester Relationship Specialty Start Date End Date Diego Huffman MD [address] [place] [address] PCP - General Family Practice 09/01/21 Luis Cordero DO [facility] [place] [address] Consulting Cardiology 12/04/21 Rubber Tester Relationship Specialty Start Date End Date Diego Huffman MD [address] [place] [address] PCP - General Family Practice 09/01/21 Luis Cordero DO [facility] [place] [address] Consulting Cardiology 12/04/21 Rubber Tester Relationship Specialty Start Date End Date Diego Huffman MD [address] [place] [address] PCP - General Family Practice 09/01/21 Luis Cordero DO [facility] [place] [address] Consulting Cardiology 12/04/21 Rubber Tester Relationship Specialty Start Date End Date Diego Huffman MD [address] [place] [address] PCP - General Family Medicine 09/01/21 Luis Cordero DO [facility] [place] [address] Consulting Cardiology 12/04/21 Rubber Tester Relationship Specialty Start Date End Date Diego Huffman MD [address] [place] [address] PCP - General Family Medicine 09/01/21 Luis Cordero DO [facility] [place] [address] Consulting Cardiology 12/04/21 Rubber Tester Relationship Specialty Start Date End Date Diego Huffman MD [address] [place] [address] PCP - General Family Medicine 09/01/21 Luis Cordero DO [facility] [place] [address] Consulting Cardiology 12/04/21 Rubber Tester Relationship Specialty Start Date End Date Diego Huffman MD [address] [place] [address] PCP - General Family Medicine 09/01/21 Luis Cordero DO [facility] [place] [address] Consulting Cardiology 12/04/21 Rubber Tester Relationship Specialty Start Date End Date Diego Huffman MD [address] [place] [address] PCP - General Family Medicine 09/01/21 Luis Cordero DO [facility] [place] [address] Consulting Cardiology 12/04/21 Rubber Tester Relationship Specialty Start Date End Date Diego Huffman MD [address] [place] [address] PCP - General Family Medicine 09/01/21 Luis Cordero DO [address] [place] [address] Consulting Cardiology 12/04/21 Rubber Tester Relationship Specialty Start Date End Date Diego Huffman MD [address] [place] [address] PCP - General Family Medicine 09/01/21 Luis Cordero DO [address] [place] [address] Consulting Cardiology 12/04/21 Rubber Tester Relationship Specialty Start Date End Date Diego Huffman MD [address] [place] [address] PCP - General Family Medicine 09/01/21 Luis Cordero DO [address] [place] [address] Consulting Cardiology 12/04/21 Rubber Tester Relationship Specialty Start Date End Date Diego Huffman MD [address] [place] [address] PCP - General Family Medicine 09/01/21 Luis Cordero DO [address] [place] [address] Consulting Cardiology 12/04/21 Rubber Tester Relationship Specialty Start Date End Date Diego Huffman MD [address] [place] [address] PCP - General Family Medicine 09/01/21 Luis Cordero DO [address] [place], [place] [id number] Consulting Cardiology 12/04/21 Rubber Tester Relationship Specialty Start Date End Date Diego Huffman MD [address] [place], [place] [address] PCP - General Family Medicine 09/01/21 Luis Cordero DO [facility] [place], [place] [id number] Consulting Cardiology 12/04/21 Rubber Tester Relationship Specialty Start Date End Date Diego Huffman MD [address] [place] [address] PCP - General Family Medicine 09/01/21 Luis Cordero DO [facility] [place], [place] [id number] Consulting Cardiology 12/04/21 Rubber Tester Relationship Specialty Start Date End Date Diego Huffman MD [address] [place] [address] PCP - General Family Medicine 09/01/21 Luis Cordero DO [address], [place] [id number] Consulting Cardiology 12/04/21 Rubber Tester Relationship Specialty Start Date End Date Diego Huffman MD [address] [place], [place] [address]40[address] PCP - General Family Medicine 09/01/21 Luis Cordero DO [address] [place] [address] Consulting Cardiology 12/04/21 Rubber Tester Relationship Specialty Start Date End Date Diego Huffman MD [address] [place], [place] [address] PCP - General Family Medicine 09/01/21 Luis Cordero DO [address] [place], [place] [id number] Consulting Cardiology 12/04/21 Rubber Tester Relationship Specialty Start Date End Date Diego Huffman MD [address] [place] [address] PCP - General Family Medicine 09/01/21 Luis Cordero DO [address] [place], [place] [id number] Consulting Cardiology 12/04/21 Rubber Tester Relationship Specialty Start Date End Date Diego Huffman MD [address] [place] [address] PCP - General Family Medicine 09/01/21 Luis Cordero DO [address] [place] [address] Consulting Cardiology 12/04/21 Rubber Tester Relationship Specialty Start Date End Date Diego Huffman MD [address] [place] [address] PCP - General Family Medicine 09/01/21 Luis Cordero DO [address] [place] [address] Consulting Cardiology 12/04/21 Rubber Tester Relationship Specialty Start Date End Date Diego Huffman MD [address] [place] [address] PCP - General Family Medicine 09/01/21 Luis Cordero DO [address] [place] [address] Consulting Cardiology 12/04/21 Rubber Tester Relationship Specialty Start Date End Date Diego Huffman MD [address] [place] [address] PCP - General Family Medicine 09/01/21 Luis Cordero DO [address] [place] [address] Consulting Cardiology 12/04/21 Rubber Tester Relationship Specialty Start Date End Date Diego Huffman MD [address] [place], [place] 394531 PCP - General Family Medicine 09/01/21 Luis Cordero DO [address] [place] [address] Consulting Cardiology 12/04/21 Rubber Tester Relationship Specialty Start Date End Date Diego Huffman MD [address] [place] [address] PCP - General Family Medicine 09/01/21 Luis Cordero DO [address] [place] [address] Consulting Cardiology 12/04/21 Rubber Tester Relationship Specialty Start Date End Date Diego Huffman MD [address] [facility] [place] [address] PCP - General Family Medicine 09/01/21 Luis Cordero DO [address] [place] [id number] Consulting Cardiology 12/04/21 Ana Resendez FERRYBOAT OPERATOR.ASSESSMENT MANAGER [address] [place] [address] Fuel Tank Sealer And Tester Family Medicine 11/05/24 Vicki Lomax FERRYBOAT OPERATOR.ASSESSMENT MANAGER [address] [facility] [place] [address] Fuel Tank Sealer And Tester Family Medicine 11/05/24 Rubber Tester Relationship Specialty Start Date End Date Diego Huffman MD [address] [facility] [place] [address] PCP - General Family Medicine 09/01/21 Luis Cordero DO [address] [place] [address] Consulting Cardiology 12/04/21 Ana Resendez FERRYBOAT OPERATOR.ASSESSMENT MANAGER [address] [place] [address] Fuel Tank Sealer And Tester Family Medicine 11/05/24 Vicki Lomax FERRYBOAT OPERATOR.ASSESSMENT MANAGER [address] [facility] [place] [address] Fuel Tank Sealer And Tester Family Medicine 11/05/24 Rubber Tester Relationship Specialty Start Date End Date Diego Huffman MD [address] [place] [address] PCP - General Family Medicine 09/01/21 Luis Cordero DO [address] [place] [phone] Consulting Cardiology 12/04/21 Ana Resendez, FERRYBOAT OPERATOR.ASSESSMENT MANAGER [address] [place] [address] Fuel Tank Sealer And Tester Family Medicine 11/05/24 Vicki Lomax FERRYBOAT OPERATOR.ASSESSMENT MANAGER [address] [place] [address] Fuel Tank Sealer And Tester Family Medicine 11/05/24 Rubber Tester Relationship Specialty Start Date End Date Diego Huffman MD [address] [place] [address] PCP - General Family Medicine 09/01/21 Luis Cordero DO [address] [place] [address] Consulting Cardiology 12/04/21 Ana Resendez, FERRYBOAT OPERATOR.ASSESSMENT MANAGER [address] [place] [address] Fuel Tank Sealer And Tester Family Medicine 11/05/24 Vicki Lomax FERRYBOAT OPERATOR.ASSESSMENT MANAGER [address] [place] [address] Fuel Tank Sealer And Tester Family Medicine 11/05/24 Rubber Tester Relationship Specialty Start Date End Date Diego Huffman MD [address] [place], [place] [address] [phone] PCP - General Family Medicine 09/01/21 Luis Cordero DO [address], [place] [phone] Consulting Cardiology 12/04/21 Ana Resendez, SHARIFA.ASSESSMENT MANAGER [address] [place] [address] Fuel Tank Sealer And Tester Family Medicine 11/05/24 Vicki Lomax FERRYBOAT OPERATOR.ASSESSMENT MANAGER [address] [place] [address] Fuel Tank Sealer And Tester Family Medicine 11/05/24 Rubber Tester Relationship Specialty Start Date End Date Diego Huffman MD [address] [place], [place] [address] PCP - General Family Medicine 09/01/21 Luis Cordero DO [address], [place] [id number] Consulting Cardiology 12/04/21 Ana Resendez, FERRYBOAT OPERATOR.ASSESSMENT MANAGER [address] [place] [address] Fuel Tank Sealer And Tester Family Medicine 11/05/24 Vicki Lomax FERRYBOAT OPERATOR.ASSESSMENT MANAGER [address] [place] [address] Fuel Tank Sealer And Tester Family Medicine 11/05/24 Rubber Tester Relationship Specialty Start Date End Date Diego Huffman MD [address] [place] [address] PCP - General Family Medicine 09/01/21 Luis Cordero DO [address], [place] [phone] Consulting Cardiology 12/04/21 Ana Resendez APRN.ASSESSMENT MANAGER [address] [place] [address] Fuel Tank Sealer And Tester [facility] 11/05/24 Vicki Lomax APRN.ASSESSMENT MANAGER [address] [place] [address] Fuel Tank Sealer And Tester [facility] 11/05/24 Rubber Tester Relationship Specialty Start Date End Date Diego Huffman MD [address] [place] [address] PCP - General Family Medicine 09/01/21 Luis Cordero DO [address] [place] [phone] Consulting Cardiology 12/04/21 Ana Resendez, FERRYBOAT OPERATOR.ASSESSMENT MANAGER [address] [place] [address] [facility] Vicki Lomax, FERRYBOAT OPERATOR.ASSESSMENT MANAGER [address] [place] [address] [facility] 11/05/24 Rubber Tester Relationship Specialty Start Date End Date Diego Huffman MD [address] [place], [place] 429[address] PCP - General Family Medicine 09/01/21 Luis Cordero DO [address] [place], [place] [phone] Consulting Cardiology 12/04/21 Ana Resendez APRN.ASSESSMENT MANAGER [address] [place] [address] [facility] 11/[facility]/24 Vicki Lomax APRN.ASSESSMENT MANAGER [address] [facility] [place] [address] [facility] 11/[facility] Rubber Tester Relationship Specialty Start Date End Date Diego Huffman MD [address] [facility] [place] [address] PCP - General Family Medicine 09/01/21 Luis Cordero DO [facility] [address] [place], [place] [phone] Consulting Cardiology 12/04/21 Ana Resendez APRN.ASSESSMENT MANAGER [address] [place] [address] [facility] 11/05/24 Vicki Lomax APRN.ASSESSMENT MANAGER [address] [facility] [place] [address] [facility] 11/05/24 Rubber Tester Relationship Specialty Start Date End Date Diego Huffman MD [address] [facility] [place] [address] PCP - General Family Medicine 09/01/21 Luis Cordero DO [address] [place] [address] Consulting Cardiology 12/04/21 Ana Resendez APRN.ASSESSMENT MANAGER [address] [place] [address] [employer] [facility] 11/05/24 Vicki Lomax APRN.ASSESSMENT MANAGER [address] [place] [address] [facility] 11/05/24 Rubber Tester Relationship Specialty Start Date End Date Diego Huffman MD [address] [place] [address] PCP - General Family Medicine 09/01/21 Luis Cordero DO [address] [place], [place] [id number] Consulting Cardiology 12/04/21 Ana Resendez FERRYBOAT OPERATOR.ASSESSMENT MANAGER [address] [place] [address] [facility] Vicki Lomax FERRYBOAT OPERATOR.ASSESSMENT MANAGER [address] [place] [address] [facility] 11/05/24 Rubber Tester Relationship Specialty Start Date End Date Diego Huffman MD [address] [place] [address] PCP - General Family Medicine 09/01/21 Luis Cordero DO [address] [place], [place] [id number] Consulting Cardiology 12/04/21 Ana Resendez APRN.ASSESSMENT MANAGER [address] [place] [address] [employer] [facility] 11/05/24 Vicki Lomax APRN.ASSESSMENT MANAGER [address] [facility] [place] [address] [facility] Rubber Tester Relationship Specialty Start Date End Date Diego Huffman MD [address] [facility] [place] [address] PCP - General Family Medicine 09/01/21 Luis Cordero DO [facility] [address] [place], [place] [id number] Consulting Cardiology 12/04/21 Ana Resendez APRN.ASSESSMENT MANAGER [address] [place] [address] [facility] 11/05/24 Vicki Lomax APRN.ASSESSMENT MANAGER [address] [facility] [place] [address] [facility] Rubber Tester Relationship Specialty Start Date End Date Diego Huffman MD [address] [facility] [place] [address] PCP - General Family Medicine 09/01/21 Luis Cordero DO [facility] [place] [address] Consulting Cardiology 12/04/21 Ana Resendez APRN.ASSESSMENT MANAGER [address] [place] [address] [facility] 11/05/24 Vicki Lomax APRN.ASSESSMENT MANAGER [address] [facility], [place] [address] [employer] T[employer] [facility] 11/05/24 Rubber Tester Relationship Specialty Start Date End Date Diego Huffman MD [address] [place], [place] [address] PCP - General Family Medicine 09/01/21 Luis Cordero DO [facility] [address] [place], [place] [phone] Consulting Cardiology 12/04/21 Ana Resendez, FERRYBOAT OPERATOR.ASSESSMENT MANAGER [address] [place] [address] [employer] [facility] 11/05/24 Vicki Lomax FERRYBOAT OPERATOR.ASSESSMENT MANAGER [address] [place] [address] [employer] T[employer] [facility] 11/05/24 Rubber Tester Relationship Specialty Start Date End Date Diego Huffman MD [address] [place], [place] [address] PCP - General Family Medicine 09/01/21 Luis Cordero DO [address] [place] [address] Consulting Cardiology 12/04/21 Ana Resendez, FERRYBOAT OPERATOR.ASSESSMENT MANAGER [address] [place] [address] [employer] T[employer] [facility] 11/05/24 Vicki Lomax FERRYBOAT OPERATOR.ASSESSMENT MANAGER [address] [place] [address] [employer] T[employer] [facility] 11/05/24 Rubber Tester Relationship Specialty Start Date End Date Diego Huffman MD [address] [place], [place] [id number] PCP - General Family Medicine 09/01/21 Luis Cordero DO [address] [place], [place] [id number] Consulting Cardiology 12/04/21 Ana Resendez APRN.ASSESSMENT MANAGER [address] [place], [place] [address] [employer] Sealer And Tester [facility] 11/05/24 Vicki Lomax APRN.ASSESSMENT MANAGER [address] [place], [place] [id number] [employer] [facility] 11/05/24 (unrecognized sect ion and content) No Status Records FoundNo Status Records FoundNo Status Records Found INFORMATION SOURCE (unrecogn ized section and content) DATE CREATED AUTHOR 03/05/2022 [facility] DATE CREATED AUTHOR AUTHOR'S ORGANIZ ATION 08/28/2024 [facility] DATE CREATED AUTHOR AUTHOR'S ORGANIZ ATION 05/28/2025 [facility] Goals (unrecognized section and content) Goals may [...] BE BASED ON THE PRIMARY CLINICAL RECORDS. [email or web address] provides no warranty or guarantee of the accuracy or completeness of information in this document.
--- NOTE | 2025-06-02 16:20 | CT_ITS ---
PROCEDURE: STROKE CTA HEAD AND NECK W/CON 06/02/2025 REASON FOR EXAM: NEURO DEFICIT, ACUTE, STROKE SUSPECTED TECHNIQUE: STROKE CTA HEAD AND NECK W/CON Multiplanar Sagittal and Coronal images were obtained. CONTRAST: 100 cc of Isovue 370 One or more dose reduction techniques were used (e.g., Automated exposure control, adjustment of the mA and/or kV according to patient size, use of iterative reconstruction technique). FINDINGS: Normal caliber aortic arch. Patent origins of the great vessels. No common carotid stenosis. No carotid bifurcation narrowing. No visible carotid dissection. Left vertebral artery dominant. No cervical vertebral occlusion. No dissection. Proximal subclavian arteries normal. Distal right vertebral artery hypoplastic. Normal basilar artery. Distal basilar artery somewhat hypoplastic with robust bilateral posterior communicating vessels. No MACHINE ADJUSTER LEADER occlusion. Normal caliber of the intracranial carotid vessels. Right M1 and proximal M2 branches are patent. No distal A2 occlusion. Left M1 and proximal M2 branches are also patent. There is no evidence of dural sinus thrombosis. There are no soft tissue masses in the neck. CT/STROKE CTA Head AND Neck W/Con IMPRESSION: Negative for aneurysm or large vessel occlusion. Reading Location[facility]
[2025-06-02 16:49] VITALS: BMI 26.9
[2025-06-02 16:50] VITALS: BP 177/79; PULSE 49; RESP 14; TEMP 36.6; O2SAT 97
[2025-06-02 17:22] VITALS: BMI 26.9
[2025-06-02 19:52] VITALS: O2SAT 98
[2025-06-02 20:55] VITALS: BP 149/82; PULSE 52; RESP 16; TEMP 36.7; O2SAT 97
[2025-06-03] VITALS: BMI 26.9
[2025-06-03 00:45] VITALS: BP 124/74; PULSE 57; RESP 16; TEMP 36.6; O2SAT 97
[2025-06-03 04:45] VITALS: BP 129/75; PULSE 53; RESP 18; TEMP 36.7; O2SAT 94
--- NOTE | 2025-06-03 05:55 | ECHOD_ITS ---
Reason For Study Reason For Study: TIA/CVA Procedure This was a 2D Doppler, Color Flow transthoracic echocardiogram. Exam performed portable in patient room. Left Ventricle Normal LV size. The left ventricular ejection fraction is 55 %. Stage 1 diastolic dysfunction. No regional wall motion abnormalities noted. Right Ventricle Normal RV size. Normal systolic function. Atria Normal left atrium. Normal right atrium. Mitral Valve There is Moderate focal posterior mitral annular calcification. Mild (1+) eccentric mitral valve insufficiency. Tricuspid Valve Normal tricuspid valve. Mild (1+) tricuspid valve insufficiency. Pulmonary artery systolic pressure is 40 mmHg. Aortic Valve Trisinus/trileaflet aortic valve. Mild focal aortic valve calcification. Mild (1+) aortic valve insufficiency. Pulmonic Valve Normal pulmonic valve. Great Vessels Normal aortic root. The pulmonary artery is normal size. Inferior vena cava collapse with respiration. Pericardium/Pleural No pericardial effusion. MMode/2D Measurements & Calculations LVIDd: 4.5 cm IVSd: 1.2 cm Ao root diam: 3.6 cm LVIDs: 2.9 cm LVPWd: 0.97 cm RVDd: 4.3 cm FS: 34.9 % LAV(MOD-bp): 66.5 ml LVAd ap4: 29.5 cm2 SV(MOD-sp4): 46.9 ml LAV(MOD-bp) Indexed: 31.4 ml/m2 LVLd ap4: 7.9 cm SI(MOD-sp4): 22.1 ml/m2 LAV(MOD-sp2): 65.1 ml EDV(MOD-sp4): 92.1 ml LAV(MOD-sp4): 68.5 ml EDV(sp4-el): 93.3 ml LVAs ap4: 18.4 cm2 LVLs ap4: 6.6 cm ESV(MOD-sp4): 45.2 ml ESV(sp4-el): 43.7 ml EF(MOD-sp4): 50.9 % EF(sp4-el): 53.1 % SV(sp4-el): 49.6 ml LA A4 area: 22.0 cm2 LA dimension(2D): 4.7 cm RA A4 area: 18.6 cm2 TAPSE: 1.5 cm Time Measurements MV dec time: 0.43 sec Doppler Measurements & Calculations MV E max jama: 82.2 cm/sec Lat Peak E' Jama: 6.9 cm/sec Med Peak E' Jama: 6.8 cm/sec MV A max jama: 133.3 cm/sec E/E' lat: 11.9 E/E' med: 12.1 MV E/A: 0.62 MV V2 max: 147.5 cm/sec MV P1/2t max jama: 85.4 cm/sec Ao V2 max: 141.9 cm/sec MV max P.7 mmHg MV P1/2t: 136.5 msec Ao max P.1 mmHg MV V2 mean: 61.7 cm/sec MV mean P.9 mmHg MV dec slope: 183.3 cm/sec2 MV V2 VTI: 50.5 cm MVA(P1/2t): 1.6 cm2 AI max jama: 463.4 cm/sec LV V1 max: 119.7 cm/sec PA V2 max: 87.2 cm/sec AI max P.9 mmHg LV V1 max P.7 mmHg LV V1 mean P.8 mmHg AI dec slope: 193.0 cm/sec2 LV V1 mean: 77.1 cm/sec AI P1/2t: 703.4 msec LV V1 VTI: 26.0 cm TR max jama: 302.8 cm/sec TR max P.7 mmHg ECHO/Echo Complete Interpretation Summary Normal LV size. The left ventricular ejection fraction is 55 %. Stage 1 diastolic dysfunction. Pulmonary artery systolic pressure is 40 mmHg. Mild focal aortic valve calcification. Mild (1+) aortic valve insufficiency. Ordering Physician: Madiha Crawford Performed By: Tre Wilcox RCS
--- NOTE | 2025-06-03 06:00 | MRI_ITS ---
PROCEDURE: BRAIN WITHOUT CONTRAST 06/03/2025 REASON FOR EXAM: CVA TECHNIQUE: BRAIN WITHOUT CONTRAST Multiplanar and multisequence images were obtained. FINDINGS: There is no diffusion restriction to represent an acute or recent territory of infarction. 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 The brainstem is unremarkable. There is cortical atrophy with prominence of the anterior temporal lobe volume loss. There are no pathologic flow voids. There is no intracranial mass. There are a few scattered areas of punctate leukomalacia. On gradient echo images, areas of punctate cortical and subcortical microhemorrhage are seen. These are seen on gradient echo images which are not as sensitive as susceptibility weighted images. There is bilateral hippocampal volume loss more prominent on the right MRI/Brain without Contrast IMPRESSION: 1. No acute infarction 2. Numerous areas of punctate micro bleeds which could represent amyloid angiop athy. 3. Atrophy with prominent involvement of the anterior temporal lobes, particula rly on the right. Reading Location[facility]
[2025-06-03 06:28] LABS: Hematocrit 46.9 % (40-54); Hemoglobin 16.2 g/dL (13.0-16.5); Immature Granulocytes Count 0.010 X10^3/uL (0.0-0.0); Mean Corp Hgb Conc 34.5 g/dL (32-36); Mean Corpuscular Volume 93.1 fL (80-94); Mean Platelet Vol. 9.7 fl (6.2-12.0); NRBC Flagged by Analyzer 0 % (0-5); Platelet Count 170 K/mm3 (150-450); RBC Distribution Width CV 13.2 % (11.6-14.6); RBC Distribution Width SD 44.4 fl (35.1-43.9); Red Blood Count 5.04 M/mm3 (4.6-6.2); White Blood Count 4.6 K/mm3 (4.4-11.0)
--- NOTE | 2025-06-03 07:19 | PCM.PN.HOSP ---
Reason for Visit Reason for Visit: Diagnoses Unsteadiness on feet (06/02/25) Subjective Subjective Patient with no acute events overnight per self and per nursing report. He notes feeling improved since initial ED arrival, less off balance and ambulating with greater ease. Patient does report eagerness for discharge to home. Discussed plan of care which included MRI of the brain, echocardiogram, therapy evaluation as well as neurology evaluation to which she is amenable. Patient denies fevers, chills, nausea, emesis, abdominal pain, chest pain or dyspnea. Objective Data Objective Data Vital Signs: Vital Signs Temp Pulse Resp BP Pulse Ox O2 Del Method 98.0 F 53 L 18 129/75 H 94 Room Air 06/03/25 04:45 06/03/25 04:45 06/03/25 04:45 06/03/25 04:45 06/03/25 04:45 06/03/25 04:45 Oxygen Delivery Method Room Air Weight: 198 lb 13.711 oz Body Mass Index (BMI) 26.9 Intake & Output: Intake and Output for Last 24 Hours 06/01/25 06/02/25 06/03/25 23:59 23:59 23:59 Intake Total 240 / 360 120 / 120 Balance 240 / 360 120 / 120 Lab / Micro Data 06/03/25 05:55 06/03/25 05:55 Labs: Laboratory Results - last 24 hr 06/02/25 14:10: WBC 5.9, RBC 5.33, Hgb 17.3 H, Hct 49.4, MCV 92.7, MCH 32.5 H, MCHC 35.0, RDW Std Deviation 45.0 H, RDW Coeff of Shady 13.2, Plt Count 185, MPV 9.4, Immature Gran % (Auto) 0.300, Neut % (Auto) 62.8, Lymph % (Auto) 22.6, [place] % (Auto) 10.8 H, Eos % (Auto) 2.5, Baso % (Auto) 1.0, Absolute Neuts (auto) 3.7, Absolute Lymphs (auto) 1.34, Nucleated RBC % 0, Sodium 142 06/02/25 14:10: Sodium Cancelled, Potassium 4.2 06/02/25 14:10: Potassium Cancelled, Chloride 107 06/02/25 14:10: Chloride Cancelled, Carbon Dioxide 23.1 06/02/25 14:10: Carbon Dioxide Cancelled, Anion Gap 12 06/02/25 14:10: Anion Gap Cancelled, BUN 25 H 06/02/25 14:10: BUN Cancelled, Creatinine 1.12 06/02/25 14:10: Creatinine Cancelled, Estim Creat Clear Calc 55.81, Est GFR (MDRD) Non-Af 66 06/02/25 14:10: Est GFR (MDRD) Non-Af Cancelled, BUN/Creatinine Ratio 22.1 H 06/02/25 14:10: BUN/Creatinine Ratio Cancelled, Glucose 99 06/02/25 14:10: Glucose Cancelled, Calcium 9.1 06/02/25 14:10: Calcium Cancelled, Troponin T High Sens 20 06/02/25 15:18: PT 14.1, INR 1.1, APTT 26.7 06/03/25 05:55: WBC 4.6, RBC 5.04, Hgb 16.2, Hct 46.9, MCV 93.1, MCH 32.1 H, MCHC 34.5, RDW Std Deviation 44.4 H, RDW Coeff of Shady 13.2, Plt Count 170, MPV 9.7, Immature Gran % (Auto) 0.200, Neut % (Auto) 56.5, Lymph % (Auto) 25.8, Hardee % (Auto) 12.9 H, Eos % (Auto) 3.7, Baso % (Auto) 0.9, Absolute Neuts (auto) 2.6, Absolute Lymphs (auto) 1.18, Nucleated RBC % 0, TSH 2.060 Radiography Diagnostic Testing: Radiology Impression Brain CT 06/02/25 14:45 IMPRESSION: No acute intracranial finding. Dr. Mckeon discussed findings with Dr. Moulton via telephone at 3:08 pm on 06/02/25. Reading Location: [id number] Head/Neck CTA 06/02/25 16:20 IMPRESSION: Negative for aneurysm or large vessel occlusion. Reading Location: [facility] Physical Exam Narrative Physical Examination: General: Awake, alert, oriented x 3 and cooperative, seated upright in PCU bed in no apparent distress, notes resolution of previous neurological deficits specifically imbalance. Skin: Normal color, normal turgor, no icterus, no cyanosis except occasional stage ecchymosis, abrasion. HEENT: AT/NC, EOMI, PERRLA, MMM. Lungs: CTA bilaterally, moderate effort, mild decrease BL bases, no rales, ronchi or wheezing. Heart: Mildly bradycardic with regular rhythm; no gallop, rub audible. Abdomen: Soft, NTTP, ND, normal BS. Extremities: No cyanosis, clubbing, or edema. Neurological: Patient awake, alert, oriented as noted, cognitive function intact; pupils equally reactive to light and accommodation, cranial nerves grossly normal, moving all 4 extremities, no focal deficits, strength preserved, [id number] and [id number] appropriate, equivocal Babinski, sensation intact. Psychiatric: Affect appears normal, notes eagerness for discharge to home, no acute evidence of depressive or anxiety feelings. Assessment & Plan Assessment/Plan (1) Ataxia due to cerebrovascular disease: PLAN: Plan The patient is an 84 y/o M w/ PMHx: Valvular heart disease, HTN, Overactive Bladder who presents to the [facility] ED on 06/02/2025 with onset of feeling off balance, difficulty ambulating with reported falling primarily to the right with some ringing in his ears however this is chronic prompting medical ED evaluation as it had been ongoing for 2 to 3 days with concurrent dizziness. #1. Ataxic gait, dizziness, imbalance concerning for potential posterior CVA: Admitted to PCU, CT brain with no acute intracranial findings, CTA head and neck with no acute aneurysm or large vessel occlusion, awaiting MRI of the brain, echocardiogram with normal LV size, EF 55%, stage I diastolic dysfunction, PASP 40 mmHg, mild focal AV calcification, mild AV insufficiency, PT/OT/Speech/Nutrition evaluation per protocol. Currently maintained on permissive HTN, maintain on asa, moderate dose statin w/ AM FLP, fall precautions. FLP obtained with triglyceride 51, total cholesterol 96, LDL 36, VLDL 10, HDL 50, TSH 2.060, he will A1c 5.9% with intervention/evaluation as noted below, Mag requested. Maintain on fall and aspiration precautions. Neurology consultation requested upon admission, pending. If MRI brain not marked appearing per discussion with patient given his preference would plan discharge to home following completion of work-up. #2. Hyperglycemia w/ Prediabetes: Admission blood sugar mildly elevated, hemoglobin A1c obtained secondary to #1 with noted 5.9% consistent with prediabetes, will encourage lifestyle and diet alteration, will recommend upon discharge follow-up with primary care physician with repeat hemoglobin A1c recheck following these interventions with medication addition if clinically appropriate at that time. #3. Valvular heart disease: Status post atrial septal defect repair remotely, echocardiogram with normal LV size, EF 55%, stage I diastolic dysfunction, PASP 40 mmHg, mild focal AV calcification, mild AV insufficiency. #4. Hypertension: Initially maintained on permissive hypertension, given resolution of symptoms reinitiated on low-dose Norvasc regimen, will continue monitor and alter regimen as needed. #5. Overactive bladder: Will continue patient home Detrol regimen. #6. DVT prophylaxis: Lovenox. Charges/Coding Visit Charges Inpatient E&M: 43012 Subs Hosp L2 NIHSS NIHSS Nursing Documentation NIHSS Nursing Documentation: NIHSS: Ischemic Stroke/TIA Start: 06/02/25 16:28 Text: For PCU Patients: NIH and Neuro Check every 4 Status: Active hours, PRN and with change in RN caregiver. Freq: [id number] Protocol: Activity Type Activity Date Activity User E-sign Co-sign Detail Recorded Client Recorded Date Recorded By Document 06/03/25 04:45 AM[facility] desktop 06/03/25 05:02 AMG 06/03/25 04:45 NIH Stroke Scale [NIHSS] A score of 0 is normal or asymptomatic . Total possible score is 42. Inpatient: RN or Physician to activate a stroke alert for onset of new stroke symptoms or with NIHSS increase >/= 3 points. Following change in neurological status, NIHSS will be performed per physician order or more frequently PRN. -1a. Level of Consciousness 0 - Alert; keenly responsive -1b. LOC Questions 0 - Answers BOTH questions correctly -1c. LOC Commands 0 - Performs BOTH tasks correctly -2. Best Gaze 0 - Normal -3. Visual 0 - No visual loss -4. Facial Palsy 0 - Normal symmetrical movements -5a. Left Arm 0 - No drift; arm holds 90 ( or 45) degrees for full 10 seconds -5b. Right Arm 0 - No drift; arm holds 90 ( or 45) degrees for full 10 seconds -6a. Left Leg 0 - No drift; leg holds 30- degree position for full 5 seconds -6b. Right Leg 0 - No drift; leg holds 30- degree position for full 5 seconds -7. Limb Ataxia 0 - Absent -8. Sensory 0 - Normal; no sensory loss -9. Best Language 0 - No aphasia; normal -10. Dysarthria 0 - Normal -11. Extinction and Inattention 0 - No abnormality -Total 0 Query Text:A score of 0 is normal or asymptomatic. Total possible score is 42 . ED: Notify Physician for NIHSS increase by > / = 3 points. Inpatient: RN or Physician to activate a stroke alert for NIHSS increase of > / = 3 points. Coma Scale [Assess] -Eye Opening Spontaneous -Motor Obeys Commands -Verbal Oriented [Total] -Coma Scale Total 15
[2025-06-03 07:43] LABS: Cholesterol 96 mg/dL (<=200); Low Density Lipoprotein Calc. 36 mg/dL; Triglycerides 51 mg/dL; Very Low Density Lipoprotein 10 mg/dL (5-40); cholesterol:hdl ratio screen 1.94
[2025-06-03 07:44] LABS: Anion Gap 9 (5-15); BUN 20 mg/dL (4-19); BUN/Creat Ratio 18.2 RATIO (10-20); Calcium,Total 8.7 mg/dL (7.6-11.0); Carbon Dioxide 25.0 mmol/L (21.0-32.0); Chloride 106 mmol/L (98-108); Estimated Creatinine Clearance 56.32 ml/min (50-250); Glucose 106 mg/dL (70-99); Potassium 4.2 mmol/L (3.3-5.1)
[2025-06-03 07:45] VITALS: O2SAT 95
[2025-06-03 10:30] VITALS: BP 145/80; PULSE 56; RESP 15; TEMP 36.6; O2SAT 99
[2025-06-03 14:29] VITALS: BMI 26.9
--- NOTE | 2025-06-03 15:23 | STROKE.CONS ---
Assessment and Plan: Stroke Assessment/Plan JONATHAN GREENWOOD is a 84 yo RH M with history of HTN who presented to [facility] 06/02/25 with 2day history of dizziness (light-headedness) and difficulty walking. CT brain negative for acute changes. CTA head/neck negative MRI brain DWI negative on my review. Neurological examination shows nonfocal exam, NIHSS-0 ASSESSMENT/PLAN: Presyncope 1) Stroke ruled out with negative MRI brain. If MRI final report confirms negative MRI, then no further stroke work-up recommended 2) Recommend caution in heat and avoiding dehydration. Primary team messaged my recs on backline. HPI Consult Data Date of Consult: 06/03/25 HPI Narrative HPI Narrative: JONATHAN GREENWOOD, is a 84 yo RH M with history of HTN who presented to [facility] 06/02/25 with 2day history of dizziness (light-headedness) and difficulty walking. Patient reports he was LKN Tuesday05/31/25. He and his son were working in the garage in the heat, and the son reports they overdid it. The son himself was exhausted I was wore out. Patient felt dizzy and due to dizziness was having difficulty walking, felt he was staggering and veering to the right. He reports difficulty walking was due to dizziness (light-headedness). No vertigo. He presented to [facility]. CT brain negative for acute changes. CTA head/neck negative. Patient feels better this AM, no longer dizzy, able to walk better. [facility] Medical History HTN (hypertension) Home Medications ?Medication ?Instructions ?Recorded ?Last Taken ?Type amlodipine 2.5 mg tablet 2.5 mg PO DAILY bp 06/02/25 06/02/25 History ascorbic acid (vitamin C) 500 mg 1 g PO DAILY suppliment 06/02/25 Unknown History tablet (C-500) aspirin 81 mg capsule 81 mg PO DAILY preventative 06/02/25 06/02/25 History [id number]-[id number]-[id number] 1 tab PO DAILY suppliment 06/02/25 Unknown History tablet (Theratrum Complete 50 Plus with Lutein tablet) solifenacin 5 mg tablet 5 mg PO DAILY bladder 06/02/25 Unknown History Allergy/AdvReac Type Severity Reaction Status Date / Time No Known Allergies Allergy Verified 06/02/25 13:55 Family History no significant family his no significant family history Surgical History Hx of atrial septal defect repair Hx of total knee replacement Social History (Updated 06/02/25 @ 17:08 by Kalani Parra) household members: spouse Smoking Status: Never smoker Vital Signs Vital Signs Vital Signs: 06/02/25 15:50 06/02/25 16:01 06/02/25 16:50 Temperature 98.4 F 97.9 F Temperature Source Oral Pulse Rate 49 L 50 L 49 L Pulse Strength Respiratory Rate 17 18 14 Respiratory Effort Respiratory Depth Respiratory Pattern Blood Pressure 159/78 H 144/78 H 177/79 H Blood Pressure Mean 105 100 111 Blood Pressure Source Monitor Blood Pressure Position Semi-Fowlers Blood Pressure Location Left Arm Pulse Ox 98 96 97 Oxygen Delivery Method Room Air Room Air 06/02/25 17:49 06/02/25 19:40 06/02/25 19:52 Temperature Temperature Source Pulse Rate Pulse Strength Normal (2+) Respiratory Rate Respiratory Effort Normal Non-Labored Respiratory Depth Normal Respiratory Pattern Normal Blood Pressure Blood Pressure Mean Blood Pressure Source Blood Pressure Position Blood Pressure Location Pulse Ox 98 Oxygen Delivery Method Room Air Room Air 06/02/25 20:55 06/03/25 00:45 06/03/25 04:45 Temperature 98.0 F 97.8 F 98.0 F Temperature Source Oral Oral Oral Pulse Rate 52 L 57 L 53 L Pulse Strength Respiratory Rate 16 16 18 Respiratory Effort Respiratory Depth Respiratory Pattern Blood Pressure 149/82 H 124/74 H 129/75 H Blood Pressure Mean 104 90 93 Blood Pressure Source Monitor Monitor Monitor Blood Pressure Position Semi-Fowlers Semi-Fowlers Semi-Fowlers Blood Pressure Location Left Arm Left Arm Left Arm Pulse Ox 97 97 94 Oxygen Delivery Method Room Air Room Air Room Air 06/03/25 07:45 06/03/25 10:00 06/03/25 10:30 Temperature 97.9 F Temperature Source Temporal Pulse Rate 56 L Pulse Strength Normal (2+) Respiratory Rate 15 Respiratory Effort Respiratory Depth Respiratory Pattern Blood Pressure 145/80 H Blood Pressure Mean 101 Blood Pressure Source Monitor Blood Pressure Position Semi-Fowlers Blood Pressure Location Left Arm Pulse Ox 95 99 Oxygen Delivery Method Room Air Room Air Weight Weight: 90.2 kg Body Mass Index (BMI) 26.9 Physical Exam Neuro Neuro Narrative: General: The patient appears nutritionally appropriate, well-groomed, and appears comfortable in no acute distress. Mental Status: The patient?s mental status was normal including orientation. Language was intact. Cranial nerves: Visual voss full, and extra-ocular motion was intact. Face motion symmetric. There was no dysarthria. Motor: Normal strength and tone in all four extremities. No pronator drift. Sensation: Intact light touch bilaterally, no extinction. Coordination: Bilateral finger to nose was normal. There was no dysmetria. Gait: deferred Lab / Micro Data 06/03/25 05:55 06/03/25 05:55 Labs: Laboratory Results - last 24 hr 06/02/25 14:10: Sodium Cancelled, Potassium Cancelled, Chloride Cancelled, Carbon Dioxide Cancelled, Anion Gap Cancelled, BUN Cancelled, Creatinine Cancelled, Est GFR (MDRD) Non-Af Cancelled, BUN/Creatinine Ratio Cancelled, Glucose Cancelled, Calcium Cancelled, Troponin T High Sens 20 06/02/25 15:18: PT 14.1, INR 1.1, APTT 26.7 06/03/25 05:55: WBC 4.6, RBC 5.04, Hgb 16.2, Hct 46.9, MCV 93.1, MCH 32.1 H, MCHC 34.5, RDW Std Deviation 44.4 H, RDW Coeff of Shady 13.2, Plt Count 170, MPV 9.7, Immature Gran % (Auto) 0.200, Neut % (Auto) 56.5, Lymph % (Auto) 25.8, [place] % (Auto) 12.9 H, Eos % (Auto) 3.7, Baso % (Auto) 0.9, Absolute Neuts (auto) 2.6, Absolute Lymphs (auto) 1.18, Nucleated RBC % 0, Sodium 140, Potassium 4.2, Chloride 106, Carbon Dioxide 25.0, Anion Gap 9, BUN 20 H, Creatinine 1.11, Estim Creat Clear Calc 56.32, Est GFR (MDRD) Non-Af 66, BUN/Creatinine Ratio 18.2, Glucose 106 H, Hemoglobin A1c 5.9 H, Calcium 8.7, Triglycerides 51, Cholesterol 96, LDL Cholesterol, Calc 36, VLDL Cholesterol 10, HDL Cholesterol 50, Cholesterol/HDL Ratio 1.94, TSH 2.060 Imaging Radiology Impression Head/Neck CTA 06/02/25 16:20 IMPRESSION: Negative for aneurysm or large vessel occlusion. Reading [facility] Echocardiogram 06/03/25 05:55 Interpretation Summary Normal LV size. The left ventricular ejection fraction is 55 %. Stage 1 diastolic dysfunction. Pulmonary artery systolic pressure is 40 mmHg. Mild focal aortic valve calcification. Mild (1+) aortic valve insufficiency. Ordering Physician: Madiha Crawford Performed By: Tre Wilcox, [facility] Active Medications Active Medications Active Medications: Current Medications Generic Name Dose Route Start Last Admin Trade Name Freq PRN Reason Stop Dose Admin Acetaminophen 650 mg 06/02/25 16:28 Acetaminophen 325 Mg Tablet PO Q6H PRN PRN Pain 1-10 Or Fever >100.7 Albuterol Sulfate 2.5 mg 06/02/25 16:28 Albuterol 2.5 Mg/3 Ml Vial.Neb. INHALATION Q2H PRN PRN SOB &/OR WHEEZING Amlodipine Besylate 2.5 mg 06/03/25 10:00 06/03/25 09:44 Amlodipine 2.5 Mg Tablet PO 2.5 mg DAILY ELIOT Administration Protocol Aspirin 81 mg 06/03/25 08:00 06/03/25 09:44 Aspirin 81 Mg Tab.Chew PO 81 mg BREAKFAST ELIOT Administration Atorvastatin Calcium 40 mg 06/02/25 22:00 06/02/25 21:05 Atorvastatin Calcium 40 Mg Tablet PO 40 mg QHS ELIOT Administration Enoxaparin Sodium 40 mg 06/03/25 10:00 06/03/25 09:44 Enoxaparin 40 Mg/0.4 Ml Syringe SC 40 mg DAILY ELIOT Administration Hydralazine HCl 5 mg 06/02/25 16:28 Hydralazine 20 Mg/Ml Vial IV 06/03/25 16:28 Q30M PRN maintain BP parameters with HR <60 Sodium Chloride 250 mls @ 15 mls/hr 06/02/25 16:29 IV .[id number] PRN Saline Flush Sodium Chloride 250 mls @ 15 mls/hr 06/02/25 16:29 IV .[id number] PRN Additional IVPB Infusion Labetalol HCl 10 - 20 mg 06/02/25 16:28 Labetalol 20 Mg/4 Ml Vial IV 06/03/25 16:28 Q10M PRN PRN maintain BP parameters with HR >/=60 Melatonin 10 mg 06/02/25 16:28 Melatonin 10 Mg Tablet PO QHS PRN PRN INSOMNIA Ondansetron HCl 4 mg 06/02/25 16:28 Ondansetron 4 Mg/2 Ml Vial IV Q8H PRN PRN NAUSEA/VOMITING Senna/Docusate Sodium 2 tablet 06/02/25 16:28 Senna/Docusate Sodium 1 Tablet PO BID PRN PRN Constipation Sodium Chloride 10 - 40 ml 06/02/25 16:29 0.9% Saline Lock 10 Ml Syringe IV UD PRN SALINE FLUSH Tolterodine Tartrate 2 mg 06/03/25 10:00 06/03/25 09:47 Tolterodine Tartrate 2 Mg Cap.Sa PO 2 mg DAILY ELIOT Administration NIHSS NIHSS Nursing Documentation NIHSS Nursing Documentation: NIHSS: Ischemic Stroke/TIA Start: 06/02/25 16:28 Text: For PCU Patients: NIH and Neuro Check every 4 Status: Active hours, PRN and with change in RN caregiver. Freq: [id number] Protocol: Activity Type Activity Date Activity User E-sign Co-sign Detail Recorded Client Recorded Date Recorded By Document 06/03/25 10:30 ML [id number] 06/03/25 10:41 ML 06/03/25 10:30 NIH Stroke Scale [NIHSS] A score of 0 is normal or asymptomatic . Total possible score is 42. Inpatient: RN or Physician to activate a stroke alert for onset of new stroke symptoms or with NIHSS increase >/= 3 points. Following change in neurological status, NIHSS will be performed per physician order or more frequently PRN. -1a. Level of Consciousness 0 - Alert; keenly responsive -1b. LOC Questions 0 - Answers BOTH questions correctly -1c. LOC Commands 0 - Performs BOTH tasks correctly -2. Best Gaze 0 - Normal -3. Visual 0 - No visual loss -4. Facial Palsy 0 - Normal symmetrical movements -5a. Left Arm 0 - No drift; arm holds 90 ( or 45) degrees for full 10 seconds -5b. Right Arm 0 - No drift; arm holds 90 ( or 45) degrees for full 10 seconds -6a. Left Leg 0 - No drift; leg holds 30- degree position for full 5 seconds -6b. Right Leg 0 - No drift; leg holds 30- degree position for full 5 seconds -7. Limb Ataxia 0 - Absent -8. Sensory 0 - Normal; no sensory loss -9. Best Language 0 - No aphasia; normal -10. Dysarthria 0 - Normal -11. Extinction and Inattention 0 - No abnormality -Total 0 Query Text:A score of 0 is normal or asymptomatic. Total possible score is 42 . ED: Notify Physician for NIHSS increase by > / = 3 points. Inpatient: RN or Physician to activate a stroke alert for NIHSS increase of > / = 3 points. Coma Scale [Assess] -Eye Opening Spontaneous -Motor Obeys Commands -Verbal Oriented [Total] -Coma Scale Total 15 NIHSS 1a. Level of Consciousness: 0 - Alert; keenly responsive 1b. LOC Questions: 0 - Answers BOTH questions correctly 1c. LOC Commands: 0 - Performs BOTH tasks correctly 2. Best Gaze: 0 - Normal 3. Visual: 0 - No visual loss 4. Facial Palsy: 0 - Normal symmetrical movements 5a. Left Arm: 0 - No drift; arm holds 90 (or 45) degrees for full 10 seconds 5b. Right Arm: 0 - No drift; arm holds 90 (or 45) degrees for full 10 seconds 6a. Left Le - No drift; leg holds 30-degree position for full 5 seconds 6b. Right Le - No drift; leg holds 30-degree position for full 5 seconds 7. Limb Ataxia: 0 - Absent 8. Sensory: 0 - Normal; no sensory loss 9. Best Language: 0 - No aphasia; normal 10. Dysarthria: 0 - Normal 11. Extinction and Inattention: 0 - No abnormality Total: 0
[2025-06-03 16:13] LABS: Magnesium 1.9 mg/dL (1.5-2.2)
--- NOTE | 2025-06-03 16:13 | CASEMGMT ---
Social Work Pt completed PHQ-9 w/SW, pt scored a 1. The PHQ-9 is indicating pt is having symptoms of depression at this time. SHAYNE Rogel
[2025-06-03 17:00] VITALS: BMI 26.9
[2025-06-03 17:48] VITALS: BMI 26.9
--- NOTE | 2025-06-03 18:05 | DCINST_ITS ---
Discharge Instructions Diet Discharge Diet: 1800 Calorie Control Diet DC O2, CPAP, BIPAP needs Home O2 Discharge instructions: No Dressing / Incision Discharge Activity: Return to Normal Activity May resume sexual activity in: No Restrictions Weight Bearing Status: Weight bearing as tolerated Dressing / Incision Call your doctor if you observe: Numbness or Tingling, Shortness of breath, Dizziness, Fainting spells, Chest pain and Calf discomfort Follow Up Care Test Results: Test results from this visit will be discussed in further detail at your follow- up appointment, if applicable. Discharge Plan Admission Admit Date/Time: 06/02/25 15:48 Primary Reason for Your Visit: Dizziness/lightheadedness, Possible Presyncope, TIA/CVA ruled out Attending Provider: Cat Andrade Primary Care Provider: Diego May Consulting Providers: Tano Delgado; Amanda Hicks; Nevaeh Newman; Anna Fritz; Charlotte Pisano; Luis Frazier; Jackeline Childress; Sunday Quintanilla; Abran Monk; Raffi Alba; Ramandeep Barragan; Bossman Zheng; Gwen Hills; Rosalino Damon; Lindsay Blas; Juan Collins; Tod Alejandre; Franklin De La Cruz; Joceline Torres; Geoffrey Fierro; Madiha Crawford Instructions Patient Instructions: Prediabetes, Healthy Meals for Diabetes, Dehydration, Diabetes: Meal Planning, ED Near-Fainting, Uncertain Cause Additional Instructions / Restrictions: ADDITIONAL FOLLOW-UP/EVALUATION: #1. Ataxic gait, dizziness, imbalance concerning for potential posterior CVA (MRI negative per Neurology however radiology read pending at discharge), FELT MORE LIKELY secondary to near syncope/possible dehydration: --CT brain with no acute intracranial findings. --CTA head and neck with no acute aneurysm or large vessel occlusion. --MRI brain without contrast with preliminary read per discussion with Neurology without acute findings but final read per radiology pending upon discharge. --Echocardiogram with normal LV size, EF 55%, stage I diastolic dysfunction, PASP 40 mmHg, mild focal AV calcification, mild AV insufficiency. --Maintain on aspirin therapy. --FLP (fasting lipid) obtained with triglyceride 51, total cholesterol 96, LDL 36, VLDL 10, HDL 50 --TSH (thyroid function) 2.060. --HgBA1c 5.9% consistent with Prediabetes. At this time recommend upon discharge follow-up with primary care physician with repeat hemoglobin A1c recheck following continued lifestyle and diet changes as recommended (instructions given for diet concept changes) in potentially ~ 3 months. --Please maintain appropriate oral hydration and avoid excessive heat prolonged exposure. Discharge Orders/Prescriptions Prescriptions: Continued amlodipine 2.5 mg tablet 2.5 mg PO DAILY aspirin 81 mg capsule 81 mg PO DAILY Theratrum Complete 50 Plus/Lut Tablet 1 tab PO DAILY solifenacin 5 mg tablet 5 mg PO DAILY ascorbic acid (vitamin C) [C-500] 500 mg tablet 1 g PO DAILY Referrals / Follow Up: Diego May MD [Primary Care Provider] - (Follow-up within 1-2 weeks for re- evaluation.) Disposition Disposition (needs filled in before D/C Order can be placed): Home, Self Care
--- NOTE | 2025-06-03 18:05 | DS.PCM_ITS ---
Providers Date of Admission: 06/02/25 Date of Discharge: 06/03/25 Primary Care Physician: Dr. Diego May MD Consultations 06/02/25 16:28 Consult: Tele-Neurology Routine Consulting Provider: [facility] Reason for Consult: Acute Ischemic Stroke/TIA EMERGENT Consult: No MD Notified: Yes Date Notified: 06/02/25 Time Notified: 16:41 Method of Notification: Answering Service Comments:: concern for posterior stroke Nursing Unit Staff Notify [facility] of Tele-Neurology Consult: Yes Reason For Visit: CONCERN FOR POSTERIOR STROKE Diagnosis Discharge Diagnosis (1) Ataxia due to cerebrovascular disease: Status: Acute Code(s): I67.9 - Cerebrovascular disease, unspecified; R27.0 - Ataxia, unspecified Plan: DISCHARGE DIAGNOSES: #1. Ataxic gait, dizziness, imbalance concerning for potential posterior CVA, FELT MORE CONSISTENT WITH near syncope/dehydration (MRI read per Neurology without acute CVA, pending final radiology read upon discharge) #2. Hyperglycemia w/ Prediabetes #3. Valvular heart disease #4. Hypertension #5. Overactive bladder Medications at Discharge Home Medications amlodipine 2.5 mg tablet 2.5 mg PO DAILY bp 06/02/25 ascorbic acid (vitamin C) 500 mg tablet (C-500) 1 g PO DAILY suppliment 06/02/25 aspirin 81 mg capsule 81 mg PO DAILY preventative 06/02/25 [id number] tablet (Theratrum Complete 50 Plus with Lutein tablet) 1 tab PO DAILY suppliment 06/02/25 solifenacin 5 mg tablet 5 mg PO DAILY bladder 06/02/25 Hospital Course Operations None Procedures 2-D Echocardiogram and EKG Summary of Care Provided Minutes Spent on Discharge: 35 Hospital Course: The patient is an 84 y/o M w/ PMHx: Valvular heart disease, HTN, Overactive Bladder who [facility] with onset of feeling off balance, difficulty ambulating with reported falling primarily to the right with some ringing in his ears however this is chronic prompting medical ED evaluation as it had been ongoing for 2 to 3 days with concurrent dizziness. Admitted to PCU, CT brain with no acute intracranial findings, CTA head and neck with no acute aneurysm or large vessel occlusion, echocardiogram with normal LV size, EF 55%, stage I diastolic dysfunction, PASP 40 mmHg, mild focal AV calcification, mild AV insufficiency, PT/OT/Speech/Nutrition evaluation per protocol. Currently maintained on permissive HTN, maintain on asa, moderate dose statin w/ AM FLP, fall precautions. FLP obtained with triglyceride 51, total cholesterol 96, LDL 36, VLDL 10, HDL 50, TSH 2.060, [id number] 5.9%, mag 1.9. Neurology consultation obtained and per their prelim read felt no acute findings on MRI of the brain. Discussed with patient and family hyperglycemia with prediabetes evident by hemoglobin A1c obtained and recommended initially lifestyle and diet changes with information given at discharge with plan follow-up repeat testing outpatient with PCP and potentially 3 months. Recommended at this time continue aspirin therapy and home hypertensive regimen with reevaluation outpatient to assure blood pressure remains appropriately controlled. Patient and family very eager for discharge and preference to avoid waiting for final read per radiology of MRI brain given neurology did discuss with them prelim finding of no acute findings. Discussed with patient and family that if anything concerning acutely on MRI was to be read per radiology they would be contacted and plan of care would be instituted which would likely be a only medication at this time given complete resolution of symptoms. Strongly encouraged appropriate oral hydration and avoidance of prolonged heat exposure given his current presentation. Recommended follow-up with primary care physician as noted. Weight / BMI Weight Weight: 198 lb 13.711 oz Body Mass Index (BMI) 26.9 ABG / Lab / Microbiology Data 06/03/25 05:55 06/03/25 05:55 Laboratory: Laboratory Results - last 24 hr 06/03/25 05:55: WBC 4.6, RBC 5.04, Hgb 16.2, Hct 46.9, MCV 93.1, MCH 32.1 H, MCHC 34.5, RDW Std Deviation 44.4 H, RDW Coeff of Shady 13.2, Plt Count 170, MPV 9.7, Immature Gran % (Auto) 0.200, Neut % (Auto) 56.5, Lymph % (Auto) 25.8, [place] % (Auto) 12.9 H, Eos % (Auto) 3.7, Baso % (Auto) 0.9, Absolute Neuts (auto) 2.6, Absolute Lymphs (auto) 1.18, Nucleated RBC % 0, Sodium 140, Potassium 4.2, Chloride 106, Carbon Dioxide 25.0, Anion Gap 9, BUN 20 H, Creatinine 1.11, Estim Creat Clear Calc 56.32, Est GFR (MDRD) Non-Af 66, BUN/Creatinine Ratio 18.2, G lucose 106 H, Hemoglobin A1c 5.9 H, Calcium 8.7, Magnesium 1.9, Triglycerides 51, Cholesterol 96, LDL Cholesterol, Calc 36, VLDL Cholesterol 10, HDL Cholesterol 50, Cholesterol/HDL Ratio 1.94, TSH 2.060 Radiography Diagnostic Testing: Radiology Impression Echocardiogram 06/03/25 05:55 Interpretation Summary Normal LV size. The left ventricular ejection fraction is 55 %. Stage 1 diastolic dysfunction. Pulmonary artery systolic pressure is 40 mmHg. Mild focal aortic valve calcification. Mild (1+) aortic valve insufficiency. Ordering Physician: Madiha Crawford Performed By: Tre Wilcox RCS D/C Instructions DC O2, CPAP, BIPAP Needs Home O2 Discharge instructions: No Meaningful Use Info Meaningful Use Meaningful Use Diagnoses (Choose all that apply): None applicable Ischemic Stroke Statin Dosing Therapy Reference: STATIN DOSE THERAPY REFERENCE: * Patients > 75 years receive moderate or high dose statin therapy. * Patients 75 years or YOUNGER should receive HIGH intensity statin dose unless contraindicated. You will be required to document reason for non-treatment if statin daily dose does not meet guidelines. HIGH DOSE STATIN THERAPY DAILY Atorvastatin > than or = to 40 mg Rosuvastatin > than or = to 20 mg Amlodipine + Atorvastatin > than or = to 2.5/40 mg Ezetimibe + Simvastatin 10/80 mg Simvastatin 80mg Discharge Plan Admission Admit Date/Time: 06/02/25 15:48 Primary Reason for Your Visit: Dizziness/lightheadedness, Possible Presyncope, TIA/CVA ruled out Attending Provider: Cat Andrade Primary Care Provider: Diego May Consulting Providers: Tano Delgdao; Amanda Hicks; Nevaeh Newman; Anna Fritz; Charlotte Pisano; Luis Frazier; Jackeline Childress; Sunday Quintanilla; Abran Monk; Raffi Alba; Ramandeep Barragan; Bossman Zheng; Gwen Hills; Rosalino Damon; Lindsay Blas; Juan Collins; Tod Alejandre; Franklin De La Cruz; Joceline Torres; Geoffrey Fierro; Madiha Crawford Instructions Patient Instructions: Prediabetes, Healthy Meals for Diabetes, Dehydration, Diabetes: Meal Planning, ED Near-Fainting, Uncertain Cause Additional Instructions / Restrictions: ADDITIONAL FOLLOW-UP/EVALUATION: #1. Ataxic gait, dizziness, imbalance concerning for potential posterior CVA (MRI negative per Neurology however radiology read pending at discharge), FELT MORE LIKELY secondary to near syncope/possible dehydration: --CT brain with no acute intracranial findings. --CTA head and neck with no acute aneurysm or large vessel occlusion. --MRI brain without contrast with preliminary read per discussion with Neurology without acute findings but final read per radiology pending upon discharge. --Echocardiogram with normal LV size, EF 55%, stage I diastolic dysfunction, PASP 40 mmHg, mild focal AV calcification, mild AV insufficiency. --Maintain on aspirin therapy. --FLP (fasting lipid) obtained with triglyceride 51, total cholesterol 96, LDL 36, VLDL 10, HDL 50 --TSH (thyroid function) 2.060. --HgBA1c 5.9% consistent with Prediabetes. At this time recommend upon discharge follow-up with primary care physician with repeat hemoglobin A1c recheck following continued lifestyle and diet changes as recommended (instructions given for diet concept changes) in potentially ~ 3 months. --Please maintain appropriate oral hydration and avoid excessive heat prolonged exposure. Discharge Orders/Prescriptions Prescriptions: Continued amlodipine 2.5 mg tablet 2.5 mg PO DAILY aspirin 81 mg capsule 81 mg PO DAILY Theratrum Complete 50 Plus/Lut Tablet 1 tab PO DAILY solifenacin 5 mg tablet 5 mg PO DAILY ascorbic acid (vitamin C) [C-500] 500 mg tablet 1 g PO DAILY Referrals / Follow Up: Diego May MD [Primary Care Provider] - (Follow-up within 1-2 weeks for re- evaluation.) Disposition Disposition (needs filled in before D/C Order can be placed): Home, Self Care Charges/Coding Visit Charges Inpatient E&M: 23149 Disch Hosp >30min
== END 2025-06-03 18:21 | disposition home or self-care (01) | DRG 641 ==
LOC: ED 15:41 → PCU 16:08
PROVIDERS: Admitting Provider Internal Medicine; Emergency Provider Emergency Medicine; PCP Family Medicine; Visit Provider Family Medicine
DX: E86.0 Dehydration (principal); I10 Essential (primary) hypertension; R00.1 Bradycardia, unspecified; I67.9 Cerebrovascular disease, unspecified; R27.0 Ataxia, unspecified; N32.81 Overactive bladder; Z79.82 Long term (current) use of aspirin; R73.03 Prediabetes; Z96.659 Presence of unspecified artificial knee joint
CPT/HCPCS: 36415; 70450; 70496; 70498; 70551; 80048; 80061; 83036; 83735; 84443; 84484; 85025; 85610; 85730; 93005; 93306; 94762; 97161; 97166; 97802; 99284; Q9967; A4216